=== PATIENT | female | born 1950 | race Caucasian/White ===

== ENCOUNTER 2022-09-05 05:36 | Outpatient (REF) | payer MEDICARE, SELFPAY ==
[2022-09-05 05:52] LABS: Appearance Urine Cloudy; Color Urine Yellow; Glucose Urine UA Negative (Negative); Leukocyte Esterase Urine Large (3+) (Negative); Nitrite Urine Negative (Negative); Specific Gravity - Urine <= 1.005 (1.005-1.025); UMIC TRIGGER UA YES; Urine Blood Trace (Negative); Urine Ketones Negative (Negative); Urine Protein Negative (Neg-Trace)
[2022-09-05 05:57] LABS: Bacteria Urine 1+ (None Seen); Hyaline Casts Urine 0-2 /LPF (0-2); RBC Urine 0-2 /HPF (0-2); Squamous Epithelial Cell Urine 0-2 /HPF (0-2); WBC Urine >50 /HPF (0-5)
== END 2022-09-05 05:37 | disposition home or self-care (01) ==
LOC: HO.MMNH1L 05:36
PROVIDERS: Visit Provider Family Medicine
DX: N39.0 Urinary tract infection, site not specified (principal)
CPT/HCPCS: 81001

== ENCOUNTER 2022-09-08 06:04 | Outpatient (REF) | payer MEDICARE, SELFPAY ==
[2022-09-08 06:02] LABS: MANUAL DIFF FLAG NO
[2022-09-08 06:25] LABS: Anion Gap 12 (12-20); Blood Urea Nitrogen 10 mg/dL (9-16); Calcium 7.9 mg/dL (8.4-10.2); Carbon Dioxide 25 mmol/L (22-29); Chloride 105 mmol/L (96-108); Estimated Glomerular Filt Rate > 60; Glucose Random 98 mg/dL (60-115); Sodium 138 mmol/L (135-145)
[2022-09-08 06:31] LABS: Basophils Absolute Auto 0.1 X10*3/uL (0.0-0.2); Basophils Percent Auto 1.2 % (0-2); Eosinophils Absolute Auto 0.2 X10*3/uL (0.0-0.4); Eosinophils Percent Auto 1.5 % (0-4); Hemoglobin 11.1 g/dl (12.0-16.0); Imm Gran Abs Auto 0.06 X10*3/uL (0.00-0.03); Imm Gran Pct Auto 0.6 % (0.0-0.4); Lymphocytes Absolute Auto 1.4 X10*3/uL (1.2-4.9); Lymphocytes Percent Auto 12.9 % (20-40); Mean Corpuscular HGB Conc 30.8 g/dl (31.0-35.0); Mean Corpuscular Hemoglobin 26.9 pg (27.0-33.0); Mean Corpuscular Volume 87.4 fL (80.0-98.0); Mean Platelet Volume 10.3 fL (9.4-12.3); Monocytes Absolute Auto 0.7 X10*3/uL (0.1-1.2); Monocytes Percent Auto 6.1 % (2-11); Neutrophils Absolute Auto 8.3 x10*3/uL (2.0-8.3); Neutrophils Percent Auto 77.7 % (45-73); Platelet Count 416 X10*3/uL (160-400); Red Blood Count 4.12 X10*6/uL (4.20-5.50); Red Cell Distribution Width 15.2 % (11.0-16.0); White Blood Count 10.6 X10*3/uL (4.8-10.8)
== END 2022-09-08 06:05 | disposition home or self-care (01) ==
LOC: HO.MMNH1L 06:04
PROVIDERS: Visit Provider Family Medicine
DX: M19.90 Unspecified osteoarthritis, unspecified site (principal); I50.20 Unspecified systolic (congestive) heart failure
CPT/HCPCS: 36415; 80048; 85025

== ENCOUNTER 2022-09-15 06:47 | Outpatient (REF) | payer MEDICARE, SELFPAY ==
[2022-09-15 06:27] LABS: MANUAL DIFF FLAG NO
[2022-09-15 07:01] LABS: Basophils Absolute Auto 0.2 X10*3/uL (0.0-0.2); Basophils Percent Auto 1.5 % (0-2); Eosinophils Absolute Auto 0.2 X10*3/uL (0.0-0.4); Hematocrit 35.6 % (37.0-47.0); Hemoglobin 11.3 g/dl (12.0-16.0); Imm Gran Abs Auto 0.03 X10*3/uL (0.00-0.03); Imm Gran Pct Auto 0.3 % (0.0-0.4); Lymphocytes Absolute Auto 1.6 X10*3/uL (1.2-4.9); Lymphocytes Percent Auto 15.4 % (20-40); Mean Corpuscular HGB Conc 31.7 g/dl (31.0-35.0); Mean Platelet Volume 10.5 fL (9.4-12.3); Monocytes Absolute Auto 0.6 X10*3/uL (0.1-1.2); Monocytes Percent Auto 5.3 % (2-11); Neutrophils Absolute Auto 7.9 x10*3/uL (2.0-8.3); Neutrophils Percent Auto 75.5 % (45-73); Platelet Count 409 X10*3/uL (160-400); Red Blood Count 4.19 X10*6/uL (4.20-5.50); Red Cell Distribution Width 15.3 % (11.0-16.0); White Blood Count 10.5 X10*3/uL (4.8-10.8)
[2022-09-15 07:23] LABS: Anion Gap 14 (12-20); Blood Urea Nitrogen 10 mg/dL (9-16); Calcium 7.8 mg/dL (8.4-10.2); Carbon Dioxide 25 mmol/L (22-29); Chloride 103 mmol/L (96-108); Estimated Glomerular Filt Rate > 60; Glucose Random 92 mg/dL (60-115); Potassium 3.6 mmol/L (3.3-5.1); Sodium 138 mmol/L (135-145)
== END 2022-09-15 06:48 | disposition home or self-care (01) ==
LOC: HO.MMNH1L 06:47
PROVIDERS: Visit Provider Family Medicine
DX: I50.20 Unspecified systolic (congestive) heart failure (principal); E46 Unspecified protein-calorie malnutrition
CPT/HCPCS: 36415; 80048; 85025

== ENCOUNTER 2022-09-22 05:44 | Outpatient (REF) | payer MEDICARE, SELFPAY ==
[2022-09-22 05:37] LABS: MANUAL DIFF FLAG NO
[2022-09-22 06:07] LABS: Basophils Absolute Auto 0.2 X10*3/uL (0.0-0.2); Basophils Percent Auto 2.2 % (0-2); Eosinophils Absolute Auto 0.3 X10*3/uL (0.0-0.4); Eosinophils Percent Auto 2.9 % (0-4); Hematocrit 35.7 % (37.0-47.0); Hemoglobin 11.2 g/dl (12.0-16.0); Imm Gran Abs Auto 0.03 X10*3/uL (0.00-0.03); Imm Gran Pct Auto 0.3 % (0.0-0.4); Lymphocytes Absolute Auto 1.9 X10*3/uL (1.2-4.9); Lymphocytes Percent Auto 21.9 % (20-40); Mean Corpuscular HGB Conc 31.4 g/dl (31.0-35.0); Mean Corpuscular Hemoglobin 26.9 pg (27.0-33.0); Mean Corpuscular Volume 85.8 fL (80.0-98.0); Monocytes Absolute Auto 0.6 X10*3/uL (0.1-1.2); Monocytes Percent Auto 6.7 % (2-11); Neutrophils Absolute Auto 5.7 x10*3/uL (2.0-8.3); Platelet Count 404 X10*3/uL (160-400); Red Blood Count 4.16 X10*6/uL (4.20-5.50); Red Cell Distribution Width 15.3 % (11.0-16.0); White Blood Count 8.6 X10*3/uL (4.8-10.8)
[2022-09-22 06:28] LABS: Anion Gap 13 (12-20); Blood Urea Nitrogen 9 mg/dL (9-16); Calcium 7.9 mg/dL (8.4-10.2); Carbon Dioxide 24 mmol/L (22-29); Chloride 105 mmol/L (96-108); Estimated Glomerular Filt Rate > 60; Glucose Random 84 mg/dL (60-115); Sodium 138 mmol/L (135-145)
== END 2022-09-22 05:45 | disposition home or self-care (01) ==
LOC: HO.MMNH1L 05:44
PROVIDERS: Visit Provider Family Medicine
DX: I50.20 Unspecified systolic (congestive) heart failure (principal); E46 Unspecified protein-calorie malnutrition
CPT/HCPCS: 36415; 80048; 85025

== ENCOUNTER 2022-09-29 05:52 | Outpatient (REF) | payer MEDICARE, SELFPAY ==
[2022-09-29 05:46] LABS: MANUAL DIFF FLAG NO
[2022-09-29 06:23] LABS: Basophils Absolute Auto 0.1 X10*3/uL (0.0-0.2); Basophils Percent Auto 0.7 % (0-2); Eosinophils Absolute Auto 0.1 X10*3/uL (0.0-0.4); Eosinophils Percent Auto 0.8 % (0-4); Hematocrit 35.9 % (37.0-47.0); Hemoglobin 11.4 g/dl (12.0-16.0); Imm Gran Abs Auto 0.09 X10*3/uL (0.00-0.03); Imm Gran Pct Auto 0.6 % (0.0-0.4); Lymphocytes Absolute Auto 1.9 X10*3/uL (1.2-4.9); Lymphocytes Percent Auto 12.1 % (20-40); Mean Corpuscular HGB Conc 31.8 g/dl (31.0-35.0); Mean Corpuscular Volume 85.1 fL (80.0-98.0); Mean Platelet Volume 10.9 fL (9.4-12.3); Monocytes Absolute Auto 0.8 X10*3/uL (0.1-1.2); Monocytes Percent Auto 4.8 % (2-11); Neutrophils Absolute Auto 12.9 x10*3/uL (2.0-8.3); Platelet Count 423 X10*3/uL (160-400); Red Blood Count 4.22 X10*6/uL (4.20-5.50)
[2022-09-29 07:19] LABS: Anion Gap 15 (12-20); Blood Urea Nitrogen 11 mg/dL (9-16); Calcium 7.9 mg/dL (8.4-10.2); Carbon Dioxide 23 mmol/L (22-29); Chloride 101 mmol/L (96-108); Estimated Glomerular Filt Rate > 60; Glucose Random 100 mg/dL (60-115); Potassium 3.5 mmol/L (3.3-5.1); Sodium 135 mmol/L (135-145)
== END 2022-09-29 05:53 | disposition home or self-care (01) ==
LOC: HO.MMNH1L 05:52
PROVIDERS: Visit Provider Family Medicine
DX: I50.20 Unspecified systolic (congestive) heart failure (principal); E46 Unspecified protein-calorie malnutrition
CPT/HCPCS: 36415; 80048; 85025

== ENCOUNTER 2022-11-10 06:02 | Outpatient (REF) | payer MEDICARE, SELFPAY | END 2022-11-10 06:03 | disposition home or self-care (01) | LOC: HO.MMNH2L 06:02 | PROVIDERS: Visit Provider Family Medicine | DX: Z13.89 Encounter for screening for other disorder (principal) ==

== ENCOUNTER 2022-12-09 06:20 | Outpatient (REF) | payer MEDICARE, SELFPAY ==
[2022-12-09 06:09] LABS: MANUAL DIFF FLAG NO
[2022-12-09 06:34] LABS: Basophils Absolute Auto 0.1 X10*3/uL (0.0-0.2); Basophils Percent Auto 1.3 % (0-2); Eosinophils Absolute Auto 0.1 X10*3/uL (0.0-0.4); Eosinophils Percent Auto 1.6 % (0-4); Hematocrit 38.5 % (37.0-47.0); Hemoglobin 11.8 g/dl (12.0-16.0); Imm Gran Abs Auto 0.03 X10*3/uL (0.00-0.03); Imm Gran Pct Auto 0.4 % (0.0-0.4); Lymphocytes Absolute Auto 1.6 X10*3/uL (1.2-4.9); Lymphocytes Percent Auto 19.8 % (20-40); Mean Corpuscular HGB Conc 30.6 g/dl (31.0-35.0); Mean Corpuscular Hemoglobin 26.4 pg (27.0-33.0); Mean Corpuscular Volume 86.1 fL (80.0-98.0); Mean Platelet Volume 10.9 fL (9.4-12.3); Monocytes Absolute Auto 0.3 X10*3/uL (0.1-1.2); Monocytes Percent Auto 3.9 % (2-11); Neutrophils Absolute Auto 5.8 x10*3/uL (2.0-8.3); Platelet Count 401 X10*3/uL (160-400); Red Blood Count 4.47 X10*6/uL (4.20-5.50); Red Cell Distribution Width 15.2 % (11.0-16.0); White Blood Count 7.9 X10*3/uL (4.8-10.8)
[2022-12-09 06:58] LABS: Anion Gap 12 (12-20); Blood Urea Nitrogen 12 mg/dL (9-16); Calcium 8.6 mg/dL (8.4-10.2); Carbon Dioxide 23 mmol/L (22-29); Chloride 106 mmol/L (96-108); Estimated Glomerular Filt Rate > 60; Glucose Random 112 mg/dL (60-115); Potassium 3.9 mmol/L (3.3-5.1); Sodium 137 mmol/L (135-145)
== END 2022-12-09 06:21 | disposition home or self-care (01) ==
LOC: HO.MMNH2L 06:20
PROVIDERS: Visit Provider Family Medicine
DX: I50.20 Unspecified systolic (congestive) heart failure (principal)
CPT/HCPCS: 36415; 80048; 85025

== ENCOUNTER 2022-12-15 06:06 | Outpatient (REF) | payer MEDICARE, SELFPAY ==
[2022-12-15 06:02] LABS: MANUAL DIFF FLAG NO
[2022-12-15 06:51] LABS: Anion Gap 13 (12-20); Blood Urea Nitrogen 12 mg/dL (9-16); Calcium 9.3 mg/dL (8.4-10.2); Carbon Dioxide 27 mmol/L (22-29); Chloride 102 mmol/L (96-108); Estimated Glomerular Filt Rate > 60; Glucose Random 119 mg/dL (60-115); Potassium 3.9 mmol/L (3.3-5.1); Sodium 138 mmol/L (135-145)
[2022-12-15 07:06] LABS: Basophils Absolute Auto 0.1 X10*3/uL (0.0-0.2); Basophils Percent Auto 1.2 % (0-2); Eosinophils Absolute Auto 0.2 X10*3/uL (0.0-0.4); Eosinophils Percent Auto 1.5 % (0-4); Hematocrit 40.4 % (37.0-47.0); Hemoglobin 12.6 g/dl (12.0-16.0); Imm Gran Abs Auto 0.06 X10*3/uL (0.00-0.03); Imm Gran Pct Auto 0.6 % (0.0-0.4); Lymphocytes Absolute Auto 2.2 X10*3/uL (1.2-4.9); Lymphocytes Percent Auto 20.9 % (20-40); Mean Corpuscular HGB Conc 31.2 g/dl (31.0-35.0); Mean Corpuscular Hemoglobin 27.1 pg (27.0-33.0); Mean Corpuscular Volume 86.9 fL (80.0-98.0); Monocytes Absolute Auto 0.5 X10*3/uL (0.1-1.2); Monocytes Percent Auto 4.8 % (2-11); Neutrophils Absolute Auto 7.5 x10*3/uL (2.0-8.3); Platelet Count 419 X10*3/uL (160-400); Red Blood Count 4.65 X10*6/uL (4.20-5.50); Red Cell Distribution Width 15.2 % (11.0-16.0); White Blood Count 10.5 X10*3/uL (4.8-10.8)
== END 2022-12-15 06:07 | disposition home or self-care (01) ==
LOC: HO.MMNH3L 06:06
PROVIDERS: Visit Provider Family Medicine
DX: I50.20 Unspecified systolic (congestive) heart failure (principal)
CPT/HCPCS: 36415; 80048; 85025

== ENCOUNTER 2022-12-22 06:28 | Outpatient (REF) | payer MEDICARE, SELFPAY ==
[2022-12-22 05:51] LABS: MANUAL DIFF FLAG NO
[2022-12-22 06:01] LABS: Basophils Absolute Auto 0.1 X10*3/uL (0.0-0.2); Basophils Percent Auto 1.3 % (0-2); Eosinophils Absolute Auto 0.2 X10*3/uL (0.0-0.4); Eosinophils Percent Auto 2.1 % (0-4); Hematocrit 35.4 % (37.0-47.0); Hemoglobin 11.1 g/dl (12.0-16.0); Imm Gran Abs Auto 0.02 X10*3/uL (0.00-0.03); Imm Gran Pct Auto 0.3 % (0.0-0.4); Lymphocytes Absolute Auto 1.6 X10*3/uL (1.2-4.9); Lymphocytes Percent Auto 20.9 % (20-40); Mean Corpuscular HGB Conc 31.4 g/dl (31.0-35.0); Mean Corpuscular Hemoglobin 26.8 pg (27.0-33.0); Mean Corpuscular Volume 85.5 fL (80.0-98.0); Mean Platelet Volume 10.8 fL (9.4-12.3); Monocytes Absolute Auto 0.4 X10*3/uL (0.1-1.2); Monocytes Percent Auto 5.9 % (2-11); Neutrophils Absolute Auto 5.2 x10*3/uL (2.0-8.3); Neutrophils Percent Auto 69.5 % (45-73); Platelet Count 353 X10*3/uL (160-400); Red Blood Count 4.14 X10*6/uL (4.20-5.50); White Blood Count 7.5 X10*3/uL (4.8-10.8)
[2022-12-22 06:32] LABS: Anion Gap 12 (12-20); Blood Urea Nitrogen 18 mg/dL (9-16); Calcium 8.5 mg/dL (8.4-10.2); Carbon Dioxide 24 mmol/L (22-29); Chloride 106 mmol/L (96-108); Estimated Glomerular Filt Rate > 60; Glucose Random 116 mg/dL (60-115); Sodium 138 mmol/L (135-145)
== END 2022-12-22 06:29 | disposition home or self-care (01) ==
LOC: HO.MMNH3L 06:28
PROVIDERS: Visit Provider Family Medicine
DX: I50.20 Unspecified systolic (congestive) heart failure (principal)
CPT/HCPCS: 36415; 80048; 85025

== ENCOUNTER 2022-12-27 23:00 | Outpatient (REF) | payer MEDICARE, SELFPAY ==
[2022-12-28 09:03] LABS: Appearance Urine Turbid; Color Urine Yellow; Glucose Urine UA Negative (Negative); Nitrite Urine Positive (Negative); Specific Gravity - Urine 1.015 (1.005-1.025); UMIC TRIGGER UACC YES; Urine Blood Small (1+) (Negative); Urine Ketones Negative (Negative); Urine Protein 100 (2+) mg/dL (Neg-Trace)
[2022-12-28 09:14] LABS: Leukocyte Esterase Urine Large (3+) (Negative)
[2022-12-28 09:22] LABS: UACC Culture Trigger YES; WBC Urine >50 /HPF (0-5)
[2022-12-28 09:23] LABS: Bacteria Urine 2+ (None Seen); Hyaline Casts Urine 0-2 /LPF (0-2); Other Crystals Urine Present; Squamous Epithelial Cell Urine 0-2 /HPF (0-2)
== END 2022-12-27 23:01 | disposition home or self-care (01) ==
LOC: HO.MMNH3L 23:00
PROVIDERS: Visit Provider Internal Medicine
DX: I50.9 Heart failure, unspecified (principal); F32.A Depression, unspecified; N32.81 Overactive bladder; R82.90 Unspecified abnormal findings in urine
CPT/HCPCS: 81001; 87086; 87088; 87186

== ENCOUNTER 2022-12-29 06:01 | Outpatient (REF) | payer MEDICARE, SELFPAY ==
[2022-12-29 05:57] LABS: MANUAL DIFF FLAG NO
[2022-12-29 06:32] LABS: Basophils Absolute Auto 0.1 X10*3/uL (0.0-0.2); Basophils Percent Auto 0.9 % (0-2); Eosinophils Absolute Auto 0.2 X10*3/uL (0.0-0.4); Eosinophils Percent Auto 1.4 % (0-4); Hematocrit 35.5 % (37.0-47.0); Hemoglobin 11.2 g/dl (12.0-16.0); Imm Gran Abs Auto 0.07 X10*3/uL (0.00-0.03); Imm Gran Pct Auto 0.5 % (0.0-0.4); Lymphocytes Absolute Auto 1.6 X10*3/uL (1.2-4.9); Lymphocytes Percent Auto 11.3 % (20-40); Mean Corpuscular HGB Conc 31.5 g/dl (31.0-35.0); Mean Corpuscular Hemoglobin 27.3 pg (27.0-33.0); Mean Corpuscular Volume 86.6 fL (80.0-98.0); Mean Platelet Volume 10.1 fL (9.4-12.3); Monocytes Absolute Auto 0.7 X10*3/uL (0.1-1.2); Monocytes Percent Auto 5.2 % (2-11); Neutrophils Absolute Auto 11.3 x10*3/uL (2.0-8.3); Neutrophils Percent Auto 80.7 % (45-73); Platelet Count 422 X10*3/uL (160-400); Red Cell Distribution Width 15.1 % (11.0-16.0)
[2022-12-29 07:10] LABS: Anion Gap 13 (12-20); Blood Urea Nitrogen 14 mg/dL (9-16); Calcium 8.7 mg/dL (8.4-10.2); Carbon Dioxide 24 mmol/L (22-29); Chloride 105 mmol/L (96-108); Estimated Glomerular Filt Rate > 60; Glucose Random 116 mg/dL (60-115); Potassium 3.9 mmol/L (3.3-5.1); Sodium 138 mmol/L (135-145)
== END 2022-12-29 06:02 | disposition home or self-care (01) ==
LOC: HO.MMNH3L 06:01
PROVIDERS: Visit Provider Family Medicine
DX: I50.20 Unspecified systolic (congestive) heart failure (principal)
CPT/HCPCS: 36415; 80048; 85025

== ENCOUNTER 2023-01-05 05:59 | Outpatient (REF) | payer MEDICARE, SELFPAY ==
[2023-01-05 06:00] LABS: MANUAL DIFF FLAG NO
[2023-01-05 06:24] LABS: Basophils Absolute Auto 0.2 X10*3/uL (0.0-0.2); Eosinophils Absolute Auto 0.3 X10*3/uL (0.0-0.4); Eosinophils Percent Auto 3.5 % (0-4); Hematocrit 35.5 % (37.0-47.0); Hemoglobin 11.1 g/dl (12.0-16.0); Imm Gran Abs Auto 0.03 X10*3/uL (0.00-0.03); Imm Gran Pct Auto 0.4 % (0.0-0.4); Lymphocytes Absolute Auto 1.9 X10*3/uL (1.2-4.9); Lymphocytes Percent Auto 25.4 % (20-40); Mean Corpuscular HGB Conc 31.3 g/dl (31.0-35.0); Mean Corpuscular Hemoglobin 26.9 pg (27.0-33.0); Mean Platelet Volume 10.6 fL (9.4-12.3); Monocytes Absolute Auto 0.3 X10*3/uL (0.1-1.2); Monocytes Percent Auto 4.4 % (2-11); Neutrophils Absolute Auto 4.8 x10*3/uL (2.0-8.3); Neutrophils Percent Auto 64.3 % (45-73); Platelet Count 409 X10*3/uL (160-400); Red Blood Count 4.13 X10*6/uL (4.20-5.50); Red Cell Distribution Width 15.2 % (11.0-16.0); White Blood Count 7.4 X10*3/uL (4.8-10.8)
[2023-01-05 06:48] LABS: Anion Gap 11 (12-20); Blood Urea Nitrogen 14 mg/dL (9-16); Calcium 8.9 mg/dL (8.4-10.2); Carbon Dioxide 27 mmol/L (22-29); Chloride 105 mmol/L (96-108); Estimated Glomerular Filt Rate > 60; Glucose Random 106 mg/dL (60-115); Potassium 3.7 mmol/L (3.3-5.1); Sodium 139 mmol/L (135-145)
== END 2023-01-05 06:00 | disposition home or self-care (01) ==
LOC: HO.MMNH3L 05:59
PROVIDERS: Visit Provider Family Medicine
DX: I50.20 Unspecified systolic (congestive) heart failure (principal)
CPT/HCPCS: 36415; 80048; 85025

== ENCOUNTER 2023-01-12 06:23 | Outpatient (REF) | payer MEDICARE, SELFPAY ==
[2023-01-12 06:15] LABS: MANUAL DIFF FLAG NO
[2023-01-12 06:59] LABS: Anion Gap 14 (12-20); Blood Urea Nitrogen 12 mg/dL (9-16); Calcium 8.7 mg/dL (8.4-10.2); Carbon Dioxide 23 mmol/L (22-29); Chloride 105 mmol/L (96-108); Estimated Glomerular Filt Rate > 60; Glucose Random 122 mg/dL (60-115); Potassium 3.8 mmol/L (3.3-5.1); Sodium 138 mmol/L (135-145)
[2023-01-12 07:01] LABS: Basophils Percent Auto 0.1 % (0-2); Eosinophils Absolute Auto 0.2 X10*3/uL (0.0-0.4); Eosinophils Percent Auto 1.1 % (0-4); Hematocrit 36.2 % (37.0-47.0); Hemoglobin 11.4 g/dl (12.0-16.0); Imm Gran Abs Auto 0.08 X10*3/uL (0.00-0.03); Imm Gran Pct Auto 0.5 % (0.0-0.4); Lymphocytes Absolute Auto 1.8 X10*3/uL (1.2-4.9); Mean Corpuscular HGB Conc 31.5 g/dl (31.0-35.0); Mean Corpuscular Hemoglobin 26.6 pg (27.0-33.0); Mean Corpuscular Volume 84.4 fL (80.0-98.0); Mean Platelet Volume 11.1 fL (9.4-12.3); Monocytes Absolute Auto 0.5 X10*3/uL (0.1-1.2); Monocytes Percent Auto 3.2 % (2-11); Neutrophils Absolute Auto 14.1 x10*3/uL (2.0-8.3); Neutrophils Percent Auto 84.1 % (45-73); Platelet Count 448 X10*3/uL (160-400); Red Blood Count 4.29 X10*6/uL (4.20-5.50); Red Cell Distribution Width 15.4 % (11.0-16.0); White Blood Count 16.8 X10*3/uL (4.8-10.8)
== END 2023-01-12 06:24 | disposition home or self-care (01) ==
LOC: HO.MMNH3L 06:23
PROVIDERS: Visit Provider Family Medicine
DX: I50.20 Unspecified systolic (congestive) heart failure (principal)
CPT/HCPCS: 36415; 80048; 85025

== ENCOUNTER 2023-01-19 07:14 | Outpatient (REF) | payer MEDICARE, SELFPAY | END 2023-01-19 07:15 | disposition home or self-care (01) | LOC: HO.MMNH3L 07:14 | PROVIDERS: Visit Provider Family Medicine | DX: I50.20 Unspecified systolic (congestive) heart failure (principal) | CPT/HCPCS: 36415; 80048; 85025 ==

== ENCOUNTER 2023-01-26 06:10 | Outpatient (REF) | payer MEDICARE, SELFPAY ==
[2023-01-26 05:47] LABS: MANUAL DIFF FLAG NO
[2023-01-26 06:10] LABS: Basophils Absolute Auto 0.1 X10*3/uL (0.0-0.2); Eosinophils Absolute Auto 0.2 X10*3/uL (0.0-0.4); Eosinophils Percent Auto 1.7 % (0-4); Hematocrit 32.9 % (37.0-47.0); Hemoglobin 10.1 g/dl (12.0-16.0); Imm Gran Abs Auto 0.03 X10*3/uL (0.00-0.03); Imm Gran Pct Auto 0.3 % (0.0-0.4); Lymphocytes Absolute Auto 1.5 X10*3/uL (1.2-4.9); Lymphocytes Percent Auto 13.5 % (20-40); Mean Corpuscular HGB Conc 30.7 g/dl (31.0-35.0); Mean Corpuscular Hemoglobin 26.9 pg (27.0-33.0); Mean Corpuscular Volume 87.7 fL (80.0-98.0); Monocytes Absolute Auto 0.5 X10*3/uL (0.1-1.2); Monocytes Percent Auto 4.6 % (2-11); Neutrophils Absolute Auto 8.9 x10*3/uL (2.0-8.3); Neutrophils Percent Auto 78.9 % (45-73); Platelet Count 409 X10*3/uL (160-400); Red Blood Count 3.75 X10*6/uL (4.20-5.50); Red Cell Distribution Width 17.1 % (11.0-16.0); White Blood Count 11.3 X10*3/uL (4.8-10.8)
[2023-01-26 06:16] LABS: Anion Gap 13 (12-20); Blood Urea Nitrogen 17 mg/dL (9-16); Calcium 8.5 mg/dL (8.4-10.2); Carbon Dioxide 22 mmol/L (22-29); Chloride 106 mmol/L (96-108); Estimated Glomerular Filt Rate > 60; Glucose Random 116 mg/dL (60-115); Potassium 3.9 mmol/L (3.3-5.1); Sodium 137 mmol/L (135-145)
== END 2023-01-26 06:11 | disposition home or self-care (01) ==
LOC: HO.MMNH3L 06:10
PROVIDERS: Visit Provider Family Medicine
DX: I50.20 Unspecified systolic (congestive) heart failure (principal)
CPT/HCPCS: 36415; 80048; 85025

== ENCOUNTER 2023-02-02 06:02 | Outpatient (REF) | payer MEDICARE, SELFPAY ==
[2023-02-02 05:59] LABS: MANUAL DIFF FLAG NO
[2023-02-02 06:50] LABS: Basophils Absolute Auto 0.1 X10*3/uL (0.0-0.2); Basophils Percent Auto 1.3 % (0-2); Eosinophils Absolute Auto 0.2 X10*3/uL (0.0-0.4); Eosinophils Percent Auto 1.9 % (0-4); Hematocrit 32.4 % (37.0-47.0); Hemoglobin 10.1 g/dl (12.0-16.0); Imm Gran Abs Auto 0.05 X10*3/uL (0.00-0.03); Imm Gran Pct Auto 0.5 % (0.0-0.4); Lymphocytes Absolute Auto 1.5 X10*3/uL (1.2-4.9); Lymphocytes Percent Auto 15.4 % (20-40); Mean Corpuscular HGB Conc 31.2 g/dl (31.0-35.0); Mean Corpuscular Hemoglobin 27.2 pg (27.0-33.0); Mean Corpuscular Volume 87.1 fL (80.0-98.0); Mean Platelet Volume 11.1 fL (9.4-12.3); Monocytes Absolute Auto 0.5 X10*3/uL (0.1-1.2); Monocytes Percent Auto 5.1 % (2-11); Neutrophils Absolute Auto 7.6 x10*3/uL (2.0-8.3); Neutrophils Percent Auto 75.8 % (45-73); Platelet Count 362 X10*3/uL (160-400); Red Blood Count 3.72 X10*6/uL (4.20-5.50); Red Cell Distribution Width 17.5 % (11.0-16.0)
[2023-02-02 07:21] LABS: Anion Gap 10 (12-20); Blood Urea Nitrogen 17 mg/dL (9-16); Carbon Dioxide 23 mmol/L (22-29); Chloride 109 mmol/L (96-108); Estimated Glomerular Filt Rate > 60; Glucose Random 90 mg/dL (60-115); Potassium 3.4 mmol/L (3.3-5.1); Sodium 139 mmol/L (135-145)
== END 2023-02-02 06:03 | disposition home or self-care (01) ==
LOC: HO.MMNH3L 06:02
PROVIDERS: Visit Provider Family Medicine
DX: I50.20 Unspecified systolic (congestive) heart failure (principal)
CPT/HCPCS: 36415; 80048; 85025

== ENCOUNTER 2023-02-09 06:11 | Outpatient (REF) | payer MEDICARE, SELFPAY ==
[2023-02-09 06:03] LABS: MANUAL DIFF FLAG NO
[2023-02-09 06:37] LABS: Basophils Absolute Auto 0.1 X10*3/uL (0.0-0.2); Basophils Percent Auto 1.1 % (0-2); Eosinophils Absolute Auto 0.2 X10*3/uL (0.0-0.4); Eosinophils Percent Auto 1.6 % (0-4); Hematocrit 34.9 % (37.0-47.0); Hemoglobin 10.7 g/dl (12.0-16.0); Imm Gran Abs Auto 0.07 X10*3/uL (0.00-0.03); Imm Gran Pct Auto 0.6 % (0.0-0.4); Lymphocytes Absolute Auto 1.3 X10*3/uL (1.2-4.9); Lymphocytes Percent Auto 11.3 % (20-40); Mean Corpuscular HGB Conc 30.7 g/dl (31.0-35.0); Mean Corpuscular Hemoglobin 27.1 pg (27.0-33.0); Mean Corpuscular Volume 88.4 fL (80.0-98.0); Mean Platelet Volume 10.9 fL (9.4-12.3); Monocytes Absolute Auto 0.7 X10*3/uL (0.1-1.2); Monocytes Percent Auto 5.9 % (2-11); Neutrophils Absolute Auto 9.4 x10*3/uL (2.0-8.3); Neutrophils Percent Auto 79.5 % (45-73); Platelet Count 379 X10*3/uL (160-400); Red Blood Count 3.95 X10*6/uL (4.20-5.50); Red Cell Distribution Width 17.1 % (11.0-16.0); White Blood Count 11.9 X10*3/uL (4.8-10.8)
[2023-02-09 07:04] LABS: Anion Gap 15 (12-20); Blood Urea Nitrogen 13 mg/dL (9-16); Calcium 8.4 mg/dL (8.4-10.2); Carbon Dioxide 23 mmol/L (22-29); Chloride 107 mmol/L (96-108); Estimated Glomerular Filt Rate > 60; Glucose Random 93 mg/dL (60-115); Potassium 3.9 mmol/L (3.3-5.1); Sodium 141 mmol/L (135-145)
== END 2023-02-09 06:12 | disposition home or self-care (01) ==
LOC: HO.MMNH3L 06:11
PROVIDERS: Visit Provider Family Medicine
DX: I50.20 Unspecified systolic (congestive) heart failure (principal)
CPT/HCPCS: 36415; 80048; 85025

== ENCOUNTER 2023-02-16 05:55 | Outpatient (REF) | payer MEDICARE, SELFPAY ==
[2023-02-16 05:53] LABS: MANUAL DIFF FLAG NO
[2023-02-16 06:02] LABS: Basophils Absolute Auto 0.2 X10*3/uL (0.0-0.2); Basophils Percent Auto 1.4 % (0-2); Eosinophils Absolute Auto 0.2 X10*3/uL (0.0-0.4); Hematocrit 37.7 % (37.0-47.0); Hemoglobin 11.7 g/dl (12.0-16.0); Imm Gran Abs Auto 0.05 X10*3/uL (0.00-0.03); Imm Gran Pct Auto 0.4 % (0.0-0.4); Lymphocytes Absolute Auto 1.8 X10*3/uL (1.2-4.9); Lymphocytes Percent Auto 14.4 % (20-40); Mean Corpuscular Hemoglobin 27.3 pg (27.0-33.0); Mean Corpuscular Volume 88.1 fL (80.0-98.0); Monocytes Absolute Auto 0.6 X10*3/uL (0.1-1.2); Monocytes Percent Auto 5.3 % (2-11); Neutrophils Absolute Auto 9.3 x10*3/uL (2.0-8.3); Neutrophils Percent Auto 76.5 % (45-73); Platelet Count 479 X10*3/uL (160-400); Red Blood Count 4.28 X10*6/uL (4.20-5.50); Red Cell Distribution Width 16.4 % (11.0-16.0); White Blood Count 12.2 X10*3/uL (4.8-10.8)
[2023-02-16 06:36] LABS: Anion Gap 14 (12-20); Blood Urea Nitrogen 13 mg/dL (9-16); Calcium 8.5 mg/dL (8.4-10.2); Carbon Dioxide 24 mmol/L (22-29); Chloride 106 mmol/L (96-108); Estimated Glomerular Filt Rate > 60; Glucose Random 92 mg/dL (60-115); Sodium 140 mmol/L (135-145)
== END 2023-02-16 05:56 | disposition home or self-care (01) ==
LOC: HO.MMNH3L 05:55
PROVIDERS: Visit Provider Family Medicine
DX: I50.20 Unspecified systolic (congestive) heart failure (principal)
CPT/HCPCS: 36415; 80048; 85025

== ENCOUNTER 2023-02-20 20:43 | Outpatient (REF) | payer MEDICARE, OTHER, SELFPAY | END 2023-02-20 20:44 | disposition home or self-care (01) | LOC: HO.MMNH3L 20:43 | PROVIDERS: Visit Provider Family Medicine | DX: R50.9 Fever, unspecified (principal) | CPT/HCPCS: 87070 ==

== ENCOUNTER 2023-02-23 06:15 | Outpatient (REF) | payer MEDICARE, SELFPAY ==
[2023-02-23 06:03] LABS: MANUAL DIFF FLAG NO
[2023-02-23 06:48] LABS: Basophils Absolute Auto 0.2 X10*3/uL (0.0-0.2); Basophils Percent Auto 1.3 % (0-2); Eosinophils Absolute Auto 0.4 X10*3/uL (0.0-0.4); Hematocrit 34.3 % (37.0-47.0); Hemoglobin 10.8 g/dl (12.0-16.0); Imm Gran Abs Auto 0.06 X10*3/uL (0.00-0.03); Imm Gran Pct Auto 0.5 % (0.0-0.4); Lymphocytes Absolute Auto 1.6 X10*3/uL (1.2-4.9); Lymphocytes Percent Auto 11.9 % (20-40); Mean Corpuscular HGB Conc 31.5 g/dl (31.0-35.0); Mean Corpuscular Hemoglobin 27.3 pg (27.0-33.0); Mean Corpuscular Volume 86.8 fL (80.0-98.0); Mean Platelet Volume 11.2 fL (9.4-12.3); Monocytes Absolute Auto 0.7 X10*3/uL (0.1-1.2); Monocytes Percent Auto 5.1 % (2-11); Neutrophils Absolute Auto 10.2 x10*3/uL (2.0-8.3); Neutrophils Percent Auto 78.2 % (45-73); Platelet Count 417 X10*3/uL (160-400); Red Blood Count 3.95 X10*6/uL (4.20-5.50); Red Cell Distribution Width 15.9 % (11.0-16.0); White Blood Count 13.1 X10*3/uL (4.8-10.8)
[2023-02-23 09:56] LABS: Anion Gap 11 (12-20); Blood Urea Nitrogen 12 mg/dL (9-16); Calcium 7.7 mg/dL (8.4-10.2); Carbon Dioxide 23 mmol/L (22-29); Chloride 108 mmol/L (96-108); Estimated Glomerular Filt Rate > 60; Glucose Random 85 mg/dL (60-115); Potassium 3.5 mmol/L (3.3-5.1); Sodium 138 mmol/L (135-145)
== END 2023-02-23 06:16 | disposition home or self-care (01) ==
LOC: HO.MMNH3L 06:15
PROVIDERS: Visit Provider Family Medicine
DX: I50.20 Unspecified systolic (congestive) heart failure (principal)
CPT/HCPCS: 36415; 80048; 85025

== ENCOUNTER 2023-03-02 06:17 | Outpatient (REF) | payer MEDICARE, SELFPAY ==
[2023-03-02 05:55] LABS: MANUAL DIFF FLAG NO
[2023-03-02 06:51] LABS: Anion Gap 14 (12-20); Blood Urea Nitrogen 16 mg/dL (9-16); Carbon Dioxide 22 mmol/L (22-29); Chloride 107 mmol/L (96-108); Estimated Glomerular Filt Rate > 60; Glucose Random 90 mg/dL (60-115); Potassium 3.6 mmol/L (3.3-5.1); Sodium 139 mmol/L (135-145)
[2023-03-02 07:11] LABS: Basophils Absolute Auto 0.2 X10*3/uL (0.0-0.2); Basophils Percent Auto 1.4 % (0-2); Eosinophils Absolute Auto 0.2 X10*3/uL (0.0-0.4); Eosinophils Percent Auto 1.1 % (0-4); Hematocrit 35.6 % (37.0-47.0); Imm Gran Abs Auto 0.07 X10*3/uL (0.00-0.03); Imm Gran Pct Auto 0.5 % (0.0-0.4); Lymphocytes Absolute Auto 1.7 X10*3/uL (1.2-4.9); Lymphocytes Percent Auto 12.7 % (20-40); Mean Corpuscular HGB Conc 30.9 g/dl (31.0-35.0); Mean Corpuscular Hemoglobin 27.6 pg (27.0-33.0); Mean Corpuscular Volume 89.4 fL (80.0-98.0); Monocytes Absolute Auto 0.7 X10*3/uL (0.1-1.2); Neutrophils Absolute Auto 10.7 x10*3/uL (2.0-8.3); Neutrophils Percent Auto 79.3 % (45-73); Platelet Count 465 X10*3/uL (160-400); Red Blood Count 3.98 X10*6/uL (4.20-5.50); Red Cell Distribution Width 15.6 % (11.0-16.0); White Blood Count 13.5 X10*3/uL (4.8-10.8)
== END 2023-03-02 06:18 | disposition home or self-care (01) ==
LOC: HO.MMNH3L 06:17
PROVIDERS: Visit Provider Family Medicine
DX: I50.20 Unspecified systolic (congestive) heart failure (principal)
CPT/HCPCS: 36415; 80048; 85025

== ENCOUNTER 2023-03-09 06:10 | Outpatient (REF) | payer MEDICARE, SELFPAY ==
[2023-03-09 06:02] LABS: MANUAL DIFF FLAG NO
[2023-03-09 06:50] LABS: Basophils Absolute Auto 0.2 X10*3/uL (0.0-0.2); Basophils Percent Auto 1.6 % (0-2); Eosinophils Absolute Auto 0.3 X10*3/uL (0.0-0.4); Eosinophils Percent Auto 2.3 % (0-4); Hematocrit 34.4 % (37.0-47.0); Hemoglobin 10.7 g/dl (12.0-16.0); Imm Gran Abs Auto 0.04 X10*3/uL (0.00-0.03); Imm Gran Pct Auto 0.4 % (0.0-0.4); Lymphocytes Absolute Auto 1.9 X10*3/uL (1.2-4.9); Lymphocytes Percent Auto 16.7 % (20-40); Mean Corpuscular HGB Conc 31.1 g/dl (31.0-35.0); Mean Corpuscular Hemoglobin 27.2 pg (27.0-33.0); Mean Corpuscular Volume 87.5 fL (80.0-98.0); Mean Platelet Volume 11.5 fL (9.4-12.3); Monocytes Absolute Auto 0.7 X10*3/uL (0.1-1.2); Monocytes Percent Auto 6.4 % (2-11); Neutrophils Absolute Auto 8.1 x10*3/uL (2.0-8.3); Neutrophils Percent Auto 72.6 % (45-73); Platelet Count 442 X10*3/uL (160-400); Red Blood Count 3.93 X10*6/uL (4.20-5.50); Red Cell Distribution Width 15.6 % (11.0-16.0); White Blood Count 11.2 X10*3/uL (4.8-10.8)
[2023-03-09 07:09] LABS: Anion Gap 10 (12-20); Blood Urea Nitrogen 15 mg/dL (9-16); Calcium 8.4 mg/dL (8.4-10.2); Carbon Dioxide 24 mmol/L (22-29); Chloride 108 mmol/L (96-108); Estimated Glomerular Filt Rate > 60; Glucose Random 88 mg/dL (60-115); Potassium 3.2 mmol/L (3.3-5.1); Sodium 139 mmol/L (135-145)
== END 2023-03-09 06:11 | disposition home or self-care (01) ==
LOC: HO.MMNH3L 06:10
PROVIDERS: Visit Provider Family Medicine
DX: I50.20 Unspecified systolic (congestive) heart failure (principal)
CPT/HCPCS: 36415; 80048; 85025

== ENCOUNTER 2023-03-14 16:08 | Outpatient (REF) | payer MEDICARE, SELFPAY ==
[2023-03-14 16:16] LABS: Appearance Urine Turbid; Color Urine Yellow; Glucose Urine UA Negative (Negative); Leukocyte Esterase Urine Large (3+) (Negative); Nitrite Urine Positive (Negative); Specific Gravity - Urine 1.015 (1.005-1.025); UMIC TRIGGER UA YES; Urine Blood Moderate (2+) (Negative); Urine Ketones Negative (Negative); Urine Protein 30 (1+) mg/dL (Neg-Trace)
[2023-03-14 16:22] LABS: Bacteria Urine 4+ (None Seen); Hyaline Casts Urine 0-2 /LPF (0-2); WBC Urine >50 /HPF (0-5)
== END 2023-03-14 16:09 | disposition home or self-care (01) ==
LOC: HO.MMNH3L 16:08
PROVIDERS: Visit Provider Family Medicine
DX: R30.0 Dysuria (principal)
CPT/HCPCS: 81001; 87086; 87088; 87186

== ENCOUNTER 2023-03-17 06:40 | Outpatient (REF) | payer MEDICARE, SELFPAY ==
[2023-03-17 06:31] LABS: MANUAL DIFF FLAG NO
[2023-03-17 07:19] LABS: Basophils Absolute Auto 0.2 X10*3/uL (0.0-0.2); Basophils Percent Auto 1.2 % (0-2); Eosinophils Absolute Auto 0.3 X10*3/uL (0.0-0.4); Eosinophils Percent Auto 2.2 % (0-4); Hemoglobin 10.8 g/dl (12.0-16.0); Imm Gran Abs Auto 0.05 X10*3/uL (0.00-0.03); Imm Gran Pct Auto 0.4 % (0.0-0.4); Lymphocytes Absolute Auto 1.5 X10*3/uL (1.2-4.9); Lymphocytes Percent Auto 11.8 % (20-40); Mean Corpuscular HGB Conc 30.9 g/dl (31.0-35.0); Mean Corpuscular Hemoglobin 26.7 pg (27.0-33.0); Mean Corpuscular Volume 86.6 fL (80.0-98.0); Mean Platelet Volume 10.6 fL (9.4-12.3); Monocytes Absolute Auto 0.6 X10*3/uL (0.1-1.2); Monocytes Percent Auto 4.8 % (2-11); Neutrophils Absolute Auto 10.3 x10*3/uL (2.0-8.3); Neutrophils Percent Auto 79.6 % (45-73); Platelet Count 635 X10*3/uL (160-400); Red Blood Count 4.04 X10*6/uL (4.20-5.50); Red Cell Distribution Width 14.9 % (11.0-16.0)
[2023-03-17 07:55] LABS: Anion Gap 14 (12-20); Blood Urea Nitrogen 12 mg/dL (9-16); Calcium 8.6 mg/dL (8.4-10.2); Carbon Dioxide 20 mmol/L (22-29); Chloride 109 mmol/L (96-108); Estimated Glomerular Filt Rate > 60; Glucose Random 78 mg/dL (60-115); Potassium 3.8 mmol/L (3.3-5.1); Sodium 139 mmol/L (135-145)
== END 2023-03-17 06:41 | disposition home or self-care (01) ==
LOC: HO.MMNH3L 06:40
PROVIDERS: Visit Provider Family Medicine
DX: I50.20 Unspecified systolic (congestive) heart failure (principal)
CPT/HCPCS: 36415; 80048; 85025

== ENCOUNTER 2023-03-23 05:58 | Outpatient (REF) | payer MEDICARE, SELFPAY ==
[2023-03-23 05:51] LABS: MANUAL DIFF FLAG NO
[2023-03-23 06:56] LABS: Anion Gap 13 (12-20); Blood Urea Nitrogen 10 mg/dL (9-16); Calcium 8.1 mg/dL (8.4-10.2); Carbon Dioxide 22 mmol/L (22-29); Chloride 107 mmol/L (96-108); Estimated Glomerular Filt Rate > 60; Glucose Random 96 mg/dL (60-115); Potassium 3.5 mmol/L (3.3-5.1); Sodium 138 mmol/L (135-145)
[2023-03-23 06:58] LABS: Basophils Absolute Auto 0.2 X10*3/uL (0.0-0.2); Basophils Percent Auto 1.7 % (0-2); Eosinophils Absolute Auto 0.3 X10*3/uL (0.0-0.4); Eosinophils Percent Auto 3.1 % (0-4); Hematocrit 33.7 % (37.0-47.0); Hemoglobin 10.4 g/dl (12.0-16.0); Imm Gran Abs Auto 0.04 X10*3/uL (0.00-0.03); Imm Gran Pct Auto 0.4 % (0.0-0.4); Lymphocytes Absolute Auto 1.9 X10*3/uL (1.2-4.9); Lymphocytes Percent Auto 18.3 % (20-40); Mean Corpuscular HGB Conc 30.9 g/dl (31.0-35.0); Mean Corpuscular Hemoglobin 26.7 pg (27.0-33.0); Mean Corpuscular Volume 86.4 fL (80.0-98.0); Mean Platelet Volume 10.8 fL (9.4-12.3); Monocytes Absolute Auto 0.7 X10*3/uL (0.1-1.2); Monocytes Percent Auto 6.9 % (2-11); Neutrophils Absolute Auto 7.1 x10*3/uL (2.0-8.3); Neutrophils Percent Auto 69.6 % (45-73); Platelet Count 516 X10*3/uL (160-400); Red Cell Distribution Width 14.8 % (11.0-16.0); White Blood Count 10.2 X10*3/uL (4.8-10.8)
== END 2023-03-23 05:59 | disposition home or self-care (01) ==
LOC: HO.MMNH3L 05:58
PROVIDERS: Visit Provider Family Medicine
DX: I50.20 Unspecified systolic (congestive) heart failure (principal)
CPT/HCPCS: 36415; 80048; 85025

== ENCOUNTER 2023-03-30 07:17 | Outpatient (REF) | payer MEDICARE, SELFPAY ==
[2023-03-30 06:08] LABS: MANUAL DIFF FLAG NO
[2023-03-30 06:44] LABS: Basophils Absolute Auto 0.2 X10*3/uL (0.0-0.2); Eosinophils Absolute Auto 0.3 X10*3/uL (0.0-0.4); Eosinophils Percent Auto 3.2 % (0-4); Hematocrit 35.4 % (37.0-47.0); Hemoglobin 10.6 g/dl (12.0-16.0); Imm Gran Abs Auto 0.04 X10*3/uL (0.00-0.03); Imm Gran Pct Auto 0.4 % (0.0-0.4); Lymphocytes Percent Auto 19.8 % (20-40); Mean Corpuscular HGB Conc 29.9 g/dl (31.0-35.0); Mean Corpuscular Hemoglobin 25.9 pg (27.0-33.0); Mean Corpuscular Volume 86.6 fL (80.0-98.0); Mean Platelet Volume 11.4 fL (9.4-12.3); Monocytes Absolute Auto 0.7 X10*3/uL (0.1-1.2); Monocytes Percent Auto 6.8 % (2-11); Neutrophils Absolute Auto 6.7 x10*3/uL (2.0-8.3); Neutrophils Percent Auto 67.8 % (45-73); Platelet Count 450 X10*3/uL (160-400); Red Blood Count 4.09 X10*6/uL (4.20-5.50); Red Cell Distribution Width 14.9 % (11.0-16.0); White Blood Count 9.9 X10*3/uL (4.8-10.8)
[2023-03-30 07:13] LABS: Anion Gap 12 (12-20); Blood Urea Nitrogen 11 mg/dL (9-16); Calcium 8.1 mg/dL (8.4-10.2); Carbon Dioxide 22 mmol/L (22-29); Chloride 108 mmol/L (96-108); Estimated Glomerular Filt Rate > 60; Glucose Random 83 mg/dL (60-115); Potassium 3.6 mmol/L (3.3-5.1); Sodium 138 mmol/L (135-145)
== END 2023-03-30 07:18 | disposition home or self-care (01) ==
LOC: HO.MMNH3L 07:17
PROVIDERS: Visit Provider Family Medicine
DX: I50.20 Unspecified systolic (congestive) heart failure (principal)
CPT/HCPCS: 36415; 80048; 85025

== ENCOUNTER 2023-04-06 05:57 | Outpatient (REF) | payer MEDICARE, SELFPAY ==
[2023-04-06 05:54] LABS: MANUAL DIFF FLAG NO
[2023-04-06 06:38] LABS: Anion Gap 15 (12-20); Blood Urea Nitrogen 16 mg/dL (9-16); Calcium 8.2 mg/dL (8.4-10.2); Carbon Dioxide 20 mmol/L (22-29); Chloride 108 mmol/L (96-108); Estimated Glomerular Filt Rate > 60; Glucose Random 98 mg/dL (60-115); Potassium 3.7 mmol/L (3.3-5.1); Sodium 139 mmol/L (135-145)
[2023-04-06 06:47] LABS: Basophils Absolute Auto 0.2 X10*3/uL (0.0-0.2); Basophils Percent Auto 1.1 % (0-2); Eosinophils Absolute Auto 0.4 X10*3/uL (0.0-0.4); Eosinophils Percent Auto 2.3 % (0-4); Hematocrit 37.6 % (37.0-47.0); Hemoglobin 11.6 g/dl (12.0-16.0); Imm Gran Abs Auto 0.05 X10*3/uL (0.00-0.03); Imm Gran Pct Auto 0.3 % (0.0-0.4); Lymphocytes Percent Auto 12.8 % (20-40); Mean Corpuscular HGB Conc 30.9 g/dl (31.0-35.0); Mean Corpuscular Hemoglobin 26.2 pg (27.0-33.0); Mean Corpuscular Volume 84.9 fL (80.0-98.0); Mean Platelet Volume 11.1 fL (9.4-12.3); Monocytes Absolute Auto 1.1 X10*3/uL (0.1-1.2); Monocytes Percent Auto 6.9 % (2-11); Neutrophils Absolute Auto 11.8 x10*3/uL (2.0-8.3); Neutrophils Percent Auto 76.6 % (45-73); Platelet Count 489 X10*3/uL (160-400); Red Blood Count 4.43 X10*6/uL (4.20-5.50); Red Cell Distribution Width 15.4 % (11.0-16.0); White Blood Count 15.4 X10*3/uL (4.8-10.8)
== END 2023-04-06 05:58 | disposition home or self-care (01) ==
LOC: HO.MMNH3L 05:57
PROVIDERS: Visit Provider Family Medicine
DX: I50.20 Unspecified systolic (congestive) heart failure (principal)
CPT/HCPCS: 36415; 80048; 85025

== ENCOUNTER 2023-04-13 06:25 | Outpatient (REF) | payer MEDICARE, SELFPAY ==
[2023-04-13 06:11] LABS: MANUAL DIFF FLAG NO
[2023-04-13 07:02] LABS: Basophils Percent Auto 0.1 % (0-2); Eosinophils Percent Auto 0.3 % (0-4); Hematocrit 41.1 % (37.0-47.0); Hemoglobin 12.9 g/dl (12.0-16.0); Imm Gran Pct Auto 1.5 % (0.0-0.4); Lymphocytes Absolute Auto 0.9 X10*3/uL (1.2-4.9); Lymphocytes Percent Auto 6.4 % (20-40); Mean Corpuscular HGB Conc 31.4 g/dl (31.0-35.0); Mean Corpuscular Hemoglobin 25.9 pg (27.0-33.0); Mean Corpuscular Volume 82.5 fL (80.0-98.0); Mean Platelet Volume 11.7 fL (9.4-12.3); Monocytes Absolute Auto 0.5 X10*3/uL (0.1-1.2); Monocytes Percent Auto 3.6 % (2-11); Neutrophils Absolute Auto 11.8 x10*3/uL (2.0-8.3); Neutrophils Percent Auto 88.1 % (45-73); Platelet Count 432 X10*3/uL (160-400); Red Blood Count 4.98 X10*6/uL (4.20-5.50); Red Cell Distribution Width 15.4 % (11.0-16.0); White Blood Count 13.4 X10*3/uL (4.8-10.8)
[2023-04-13 07:28] LABS: Anion Gap 13 (12-20); Blood Urea Nitrogen 13 mg/dL (9-16); Calcium 8.4 mg/dL (8.4-10.2); Carbon Dioxide 24 mmol/L (22-29); Chloride 103 mmol/L (96-108); Estimated Glomerular Filt Rate > 60; Glucose Random 160 mg/dL (60-115); Potassium 3.5 mmol/L (3.3-5.1); Sodium 136 mmol/L (135-145)
== END 2023-04-13 06:26 | disposition home or self-care (01) ==
LOC: HO.MMNH3L 06:25
PROVIDERS: Visit Provider Family Medicine
DX: I50.20 Unspecified systolic (congestive) heart failure (principal)
CPT/HCPCS: 36415; 80048; 85025

== ENCOUNTER 2023-04-20 06:16 | Outpatient (REF) | payer MEDICARE, SELFPAY ==
[2023-04-20 05:58] LABS: MANUAL DIFF FLAG NO
[2023-04-20 06:23] LABS: Basophils Absolute Auto 0.1 X10*3/uL (0.0-0.2); Basophils Percent Auto 0.4 % (0-2); Eosinophils Absolute Auto 0.2 X10*3/uL (0.0-0.4); Eosinophils Percent Auto 1.2 % (0-4); Hematocrit 37.9 % (37.0-47.0); Hemoglobin 12.1 g/dl (12.0-16.0); Imm Gran Abs Auto 0.11 X10*3/uL (0.00-0.03); Imm Gran Pct Auto 0.8 % (0.0-0.4); Lymphocytes Absolute Auto 1.7 X10*3/uL (1.2-4.9); Mean Corpuscular HGB Conc 31.9 g/dl (31.0-35.0); Mean Corpuscular Volume 81.3 fL (80.0-98.0); Mean Platelet Volume 10.3 fL (9.4-12.3); Monocytes Absolute Auto 0.4 X10*3/uL (0.1-1.2); Monocytes Percent Auto 2.6 % (2-11); Platelet Count 640 X10*3/uL (160-400); Red Blood Count 4.66 X10*6/uL (4.20-5.50); Red Cell Distribution Width 15.3 % (11.0-16.0); White Blood Count 14.5 X10*3/uL (4.8-10.8)
[2023-04-20 06:44] LABS: Anion Gap 14 (12-20); Blood Urea Nitrogen 17 mg/dL (9-16); Calcium 8.4 mg/dL (8.4-10.2); Carbon Dioxide 22 mmol/L (22-29); Chloride 107 mmol/L (96-108); Estimated Glomerular Filt Rate > 60; Glucose Random 148 mg/dL (60-115); Potassium 3.7 mmol/L (3.3-5.1); Sodium 139 mmol/L (135-145)
== END 2023-04-20 06:17 | disposition home or self-care (01) ==
LOC: HO.MMNH3L 06:16
PROVIDERS: Visit Provider Family Medicine
DX: I50.20 Unspecified systolic (congestive) heart failure (principal)
CPT/HCPCS: 36415; 80048; 85025

== ENCOUNTER 2023-04-27 06:34 | Outpatient (REF) | payer MEDICARE, SELFPAY ==
[2023-04-27 06:41] LABS: MANUAL DIFF FLAG NO
[2023-04-27 07:21] LABS: Basophils Absolute Auto 0.2 X10*3/uL (0.0-0.2); Eosinophils Absolute Auto 0.3 X10*3/uL (0.0-0.4); Eosinophils Percent Auto 2.9 % (0-4); Hemoglobin 10.7 g/dl (12.0-16.0); Imm Gran Abs Auto 0.03 X10*3/uL (0.00-0.03); Imm Gran Pct Auto 0.3 % (0.0-0.4); Lymphocytes Absolute Auto 1.8 X10*3/uL (1.2-4.9); Mean Corpuscular HGB Conc 30.6 g/dl (31.0-35.0); Mean Corpuscular Hemoglobin 25.7 pg (27.0-33.0); Mean Corpuscular Volume 84.1 fL (80.0-98.0); Mean Platelet Volume 11.6 fL (9.4-12.3); Monocytes Absolute Auto 0.3 X10*3/uL (0.1-1.2); Monocytes Percent Auto 3.3 % (2-11); Neutrophils Absolute Auto 6.3 x10*3/uL (2.0-8.3); Neutrophils Percent Auto 71.5 % (45-73); Platelet Count 467 X10*3/uL (160-400); Red Blood Count 4.16 X10*6/uL (4.20-5.50); Red Cell Distribution Width 15.9 % (11.0-16.0); White Blood Count 8.9 X10*3/uL (4.8-10.8)
[2023-04-27 08:20] LABS: Blood Urea Nitrogen 18 mg/dL (9-16); Calcium 8.1 mg/dL (8.4-10.2); Estimated Glomerular Filt Rate > 60; Glucose Random 103 mg/dL (60-115)
[2023-04-27 08:25] LABS: Anion Gap 13 (12-20); Carbon Dioxide 21 mmol/L (22-29); Chloride 110 mmol/L (96-108); Potassium 3.5 mmol/L (3.3-5.1); Sodium 140 mmol/L (135-145)
== END 2023-04-27 06:35 | disposition home or self-care (01) ==
LOC: HO.MMNH3L 06:34
PROVIDERS: Visit Provider Family Medicine
DX: I50.20 Unspecified systolic (congestive) heart failure (principal)
CPT/HCPCS: 36415; 80048; 85025

== ENCOUNTER 2023-05-04 06:11 | Outpatient (REF) | payer MEDICARE, SELFPAY ==
[2023-05-04 06:09] LABS: MANUAL DIFF FLAG NO
[2023-05-04 06:51] LABS: Basophils Absolute Auto 0.1 X10*3/uL (0.0-0.2); Basophils Percent Auto 1.7 % (0-2); Eosinophils Absolute Auto 0.3 X10*3/uL (0.0-0.4); Eosinophils Percent Auto 3.2 % (0-4); Hematocrit 39.8 % (37.0-47.0); Hemoglobin 12.4 g/dl (12.0-16.0); Imm Gran Abs Auto 0.04 X10*3/uL (0.00-0.03); Imm Gran Pct Auto 0.5 % (0.0-0.4); Lymphocytes Absolute Auto 1.8 X10*3/uL (1.2-4.9); Lymphocytes Percent Auto 21.5 % (20-40); Mean Corpuscular HGB Conc 31.2 g/dl (31.0-35.0); Mean Corpuscular Volume 83.4 fL (80.0-98.0); Mean Platelet Volume 10.9 fL (9.4-12.3); Monocytes Absolute Auto 0.4 X10*3/uL (0.1-1.2); Monocytes Percent Auto 4.5 % (2-11); Neutrophils Absolute Auto 5.7 x10*3/uL (2.0-8.3); Neutrophils Percent Auto 68.6 % (45-73); Platelet Count 440 X10*3/uL (160-400); Red Blood Count 4.77 X10*6/uL (4.20-5.50); White Blood Count 8.4 X10*3/uL (4.8-10.8)
[2023-05-04 07:14] LABS: Anion Gap 15 (12-20); Blood Urea Nitrogen 14 mg/dL (9-16); Calcium 8.8 mg/dL (8.4-10.2); Carbon Dioxide 25 mmol/L (22-29); Chloride 104 mmol/L (96-108); Estimated Glomerular Filt Rate > 60; Glucose Random 101 mg/dL (60-115); Potassium 3.8 mmol/L (3.3-5.1); Sodium 140 mmol/L (135-145)
== END 2023-05-04 06:12 | disposition home or self-care (01) ==
LOC: HO.MMNH3L 06:11
PROVIDERS: Visit Provider Family Medicine
DX: I50.20 Unspecified systolic (congestive) heart failure (principal)
CPT/HCPCS: 36415; 80048; 85025

== ENCOUNTER 2023-05-11 06:17 | Outpatient (REF) | payer MEDICARE, SELFPAY ==
[2023-05-11 06:09] LABS: MANUAL DIFF FLAG NO
[2023-05-11 06:50] LABS: Basophils Absolute Auto 0.2 X10*3/uL (0.0-0.2); Basophils Percent Auto 1.7 % (0-2); Eosinophils Absolute Auto 0.2 X10*3/uL (0.0-0.4); Eosinophils Percent Auto 2.4 % (0-4); Hematocrit 38.1 % (37.0-47.0); Hemoglobin 11.8 g/dl (12.0-16.0); Imm Gran Abs Auto 0.05 X10*3/uL (0.00-0.03); Imm Gran Pct Auto 0.6 % (0.0-0.4); Lymphocytes Absolute Auto 2.2 X10*3/uL (1.2-4.9); Lymphocytes Percent Auto 24.3 % (20-40); Mean Corpuscular Hemoglobin 25.5 pg (27.0-33.0); Mean Corpuscular Volume 82.3 fL (80.0-98.0); Mean Platelet Volume 10.8 fL (9.4-12.3); Monocytes Absolute Auto 0.5 X10*3/uL (0.1-1.2); Monocytes Percent Auto 5.4 % (2-11); Neutrophils Absolute Auto 5.9 x10*3/uL (2.0-8.3); Neutrophils Percent Auto 65.6 % (45-73); Platelet Count 420 X10*3/uL (160-400); Red Blood Count 4.63 X10*6/uL (4.20-5.50); Red Cell Distribution Width 17.1 % (11.0-16.0)
[2023-05-11 07:29] LABS: Anion Gap 15 (12-20); Blood Urea Nitrogen 12 mg/dL (9-16); Calcium 8.5 mg/dL (8.4-10.2); Carbon Dioxide 22 mmol/L (22-29); Chloride 107 mmol/L (96-108); Estimated Glomerular Filt Rate > 60; Glucose Random 91 mg/dL (60-115); Potassium 3.9 mmol/L (3.3-5.1); Sodium 140 mmol/L (135-145)
== END 2023-05-11 06:18 | disposition home or self-care (01) ==
LOC: HO.MMNH3L 06:17
PROVIDERS: Visit Provider Family Medicine
DX: I50.20 Unspecified systolic (congestive) heart failure (principal)
CPT/HCPCS: 36415; 80048; 85025

== ENCOUNTER 2023-05-18 07:42 | Outpatient (REF) | payer MEDICARE, SELFPAY ==
[2023-05-18 06:19] LABS: MANUAL DIFF FLAG NO
[2023-05-18 07:05] LABS: Basophils Absolute Auto 0.2 X10*3/uL (0.0-0.2); Basophils Percent Auto 1.2 % (0-2); Eosinophils Absolute Auto 0.2 X10*3/uL (0.0-0.4); Eosinophils Percent Auto 1.4 % (0-4); Hematocrit 42.7 % (37.0-47.0); Hemoglobin 13.3 g/dl (12.0-16.0); Imm Gran Abs Auto 0.06 X10*3/uL (0.00-0.03); Imm Gran Pct Auto 0.4 % (0.0-0.4); Lymphocytes Absolute Auto 1.9 X10*3/uL (1.2-4.9); Lymphocytes Percent Auto 13.6 % (20-40); Mean Corpuscular HGB Conc 31.1 g/dl (31.0-35.0); Mean Corpuscular Hemoglobin 25.5 pg (27.0-33.0); Mean Corpuscular Volume 81.8 fL (80.0-98.0); Mean Platelet Volume 10.9 fL (9.4-12.3); Monocytes Absolute Auto 0.7 X10*3/uL (0.1-1.2); Monocytes Percent Auto 5.4 % (2-11); Neutrophils Absolute Auto 10.8 x10*3/uL (2.0-8.3); Platelet Count 585 X10*3/uL (160-400); Red Blood Count 5.22 X10*6/uL (4.20-5.50); Red Cell Distribution Width 17.3 % (11.0-16.0); White Blood Count 13.8 X10*3/uL (4.8-10.8)
[2023-05-18 07:29] LABS: Anion Gap 14 (12-20); Blood Urea Nitrogen 12 mg/dL (9-16); Calcium 8.7 mg/dL (8.4-10.2); Carbon Dioxide 26 mmol/L (22-29); Chloride 103 mmol/L (96-108); Estimated Glomerular Filt Rate > 60; Glucose Random 145 mg/dL (60-115); Sodium 140 mmol/L (135-145)
== END 2023-05-18 07:43 | disposition home or self-care (01) ==
LOC: HO.MMNH3L 07:42
PROVIDERS: Visit Provider Family Medicine
DX: I50.20 Unspecified systolic (congestive) heart failure (principal)
CPT/HCPCS: 36415; 80048; 85025

== ENCOUNTER 2023-05-25 06:31 | Outpatient (REF) | payer MEDICARE, SELFPAY ==
[2023-05-25 06:12] LABS: MANUAL DIFF FLAG NO
[2023-05-25 06:58] LABS: Basophils Absolute Auto 0.2 X10*3/uL (0.0-0.2); Basophils Percent Auto 1.6 % (0-2); Eosinophils Absolute Auto 0.2 X10*3/uL (0.0-0.4); Eosinophils Percent Auto 2.4 % (0-4); Hematocrit 35.1 % (37.0-47.0); Hemoglobin 10.9 g/dl (12.0-16.0); Imm Gran Abs Auto 0.03 X10*3/uL (0.00-0.03); Imm Gran Pct Auto 0.3 % (0.0-0.4); Lymphocytes Absolute Auto 1.8 X10*3/uL (1.2-4.9); Lymphocytes Percent Auto 18.1 % (20-40); Mean Corpuscular HGB Conc 31.1 g/dl (31.0-35.0); Mean Corpuscular Volume 83.8 fL (80.0-98.0); Mean Platelet Volume 11.5 fL (9.4-12.3); Monocytes Absolute Auto 0.7 X10*3/uL (0.1-1.2); Monocytes Percent Auto 6.7 % (2-11); Neutrophils Absolute Auto 7.1 x10*3/uL (2.0-8.3); Neutrophils Percent Auto 70.9 % (45-73); Platelet Count 433 X10*3/uL (160-400); Red Blood Count 4.19 X10*6/uL (4.20-5.50); Red Cell Distribution Width 17.9 % (11.0-16.0)
[2023-05-25 07:12] LABS: Anion Gap 13 (12-20); Blood Urea Nitrogen 14 mg/dL (9-16); Calcium 7.7 mg/dL (8.4-10.2); Carbon Dioxide 23 mmol/L (22-29); Chloride 107 mmol/L (96-108); Estimated Glomerular Filt Rate > 60; Glucose Random 89 mg/dL (60-115); Potassium 3.6 mmol/L (3.3-5.1); Sodium 139 mmol/L (135-145)
== END 2023-05-25 06:32 | disposition home or self-care (01) ==
LOC: HO.MMNH3L 06:31
PROVIDERS: Visit Provider Family Medicine
DX: I50.20 Unspecified systolic (congestive) heart failure (principal)
CPT/HCPCS: 36415; 80048; 85025

== ENCOUNTER 2023-06-01 06:54 | Outpatient (REF) | payer MEDICARE, SELFPAY ==
[2023-06-01 06:39] LABS: MANUAL DIFF FLAG NO
[2023-06-01 07:08] LABS: Basophils Absolute Auto 0.2 X10*3/uL (0.0-0.2); Basophils Percent Auto 1.5 % (0-2); Eosinophils Absolute Auto 0.2 X10*3/uL (0.0-0.4); Eosinophils Percent Auto 2.1 % (0-4); Hemoglobin 11.7 g/dl (12.0-16.0); Imm Gran Abs Auto 0.03 X10*3/uL (0.00-0.03); Imm Gran Pct Auto 0.3 % (0.0-0.4); Lymphocytes Percent Auto 17.6 % (20-40); Mean Corpuscular HGB Conc 30.8 g/dl (31.0-35.0); Mean Corpuscular Hemoglobin 25.7 pg (27.0-33.0); Mean Corpuscular Volume 83.3 fL (80.0-98.0); Mean Platelet Volume 11.4 fL (9.4-12.3); Monocytes Absolute Auto 0.5 X10*3/uL (0.1-1.2); Monocytes Percent Auto 4.8 % (2-11); Neutrophils Absolute Auto 8.4 x10*3/uL (2.0-8.3); Neutrophils Percent Auto 73.7 % (45-73); Platelet Count 477 X10*3/uL (160-400); Red Blood Count 4.56 X10*6/uL (4.20-5.50); Red Cell Distribution Width 18.4 % (11.0-16.0); White Blood Count 11.3 X10*3/uL (4.8-10.8)
[2023-06-01 07:38] LABS: Anion Gap 15 (12-20); Blood Urea Nitrogen 14 mg/dL (9-16); Calcium 8.5 mg/dL (8.4-10.2); Carbon Dioxide 25 mmol/L (22-29); Chloride 104 mmol/L (96-108); Estimated Glomerular Filt Rate > 60; Glucose Random 99 mg/dL (60-115); Potassium 3.6 mmol/L (3.3-5.1); Sodium 140 mmol/L (135-145)
== END 2023-06-01 06:55 | disposition home or self-care (01) ==
LOC: HO.MMNH3L 06:54
PROVIDERS: Visit Provider Family Medicine
DX: I50.20 Unspecified systolic (congestive) heart failure (principal)
CPT/HCPCS: 36415; 80048; 85025

== ENCOUNTER 2023-06-08 06:30 | Outpatient (REF) | payer MEDICARE, SELFPAY ==
[2023-06-08 06:16] LABS: MANUAL DIFF FLAG NO
[2023-06-08 07:16] LABS: Basophils Absolute Auto 0.2 X10*3/uL (0.0-0.2); Basophils Percent Auto 1.1 % (0-2); Eosinophils Absolute Auto 0.3 X10*3/uL (0.0-0.4); Eosinophils Percent Auto 1.6 % (0-4); Hematocrit 38.4 % (37.0-47.0); Hemoglobin 11.8 g/dl (12.0-16.0); Imm Gran Abs Auto 0.09 X10*3/uL (0.00-0.03); Imm Gran Pct Auto 0.6 % (0.0-0.4); Lymphocytes Absolute Auto 1.8 X10*3/uL (1.2-4.9); Lymphocytes Percent Auto 11.2 % (20-40); Mean Corpuscular HGB Conc 30.7 g/dl (31.0-35.0); Mean Corpuscular Hemoglobin 25.9 pg (27.0-33.0); Mean Corpuscular Volume 84.4 fL (80.0-98.0); Mean Platelet Volume 11.1 fL (9.4-12.3); Monocytes Absolute Auto 0.7 X10*3/uL (0.1-1.2); Monocytes Percent Auto 4.3 % (2-11); Neutrophils Absolute Auto 13.1 x10*3/uL (2.0-8.3); Neutrophils Percent Auto 81.2 % (45-73); Platelet Count 448 X10*3/uL (160-400); Red Blood Count 4.55 X10*6/uL (4.20-5.50); Red Cell Distribution Width 18.3 % (11.0-16.0); White Blood Count 16.2 X10*3/uL (4.8-10.8)
[2023-06-08 07:30] LABS: Anion Gap 14 (12-20); Blood Urea Nitrogen 12 mg/dL (9-16); Calcium 8.5 mg/dL (8.4-10.2); Carbon Dioxide 23 mmol/L (22-29); Chloride 107 mmol/L (96-108); Estimated Glomerular Filt Rate > 60; Glucose Random 94 mg/dL (60-115); Potassium 4.2 mmol/L (3.3-5.1); Sodium 140 mmol/L (135-145)
[2023-06-08 17:46] LABS: Appearance Urine Turbid; Color Urine Yellow; Glucose Urine UA Negative (Negative); Leukocyte Esterase Urine Large (3+) (Negative); Nitrite Urine Negative (Negative); UMIC TRIGGER UACC YES; Urine Blood Small (1+) (Negative); Urine Ketones Negative (Negative); Urine Protein 30 (1+) mg/dL (Neg-Trace)
[2023-06-08 18:06] LABS: Bacteria Urine 4+ (None Seen); Hyaline Casts Urine >20 /LPF (0-2); RBC Urine 0-2 /HPF (0-2); Squamous Epithelial Cell Urine 0-2 /HPF (0-2); UACC Culture Trigger YES; WBC Urine >50 /HPF (0-5)
== END 2023-06-08 06:31 | disposition home or self-care (01) ==
LOC: HO.MMNH3L 06:30
PROVIDERS: Visit Provider Family Medicine
DX: I50.20 Unspecified systolic (congestive) heart failure (principal); R82.90 Unspecified abnormal findings in urine
CPT/HCPCS: 36415; 80048; 81001; 85025; 87086

== ENCOUNTER 2023-06-15 07:29 | Outpatient (REF) | payer MEDICARE, SELFPAY ==
[2023-06-15 06:08] LABS: MANUAL DIFF FLAG NO
[2023-06-15 07:00] LABS: Basophils Absolute Auto 0.2 X10*3/uL (0.0-0.2); Basophils Percent Auto 1.3 % (0-2); Eosinophils Absolute Auto 0.4 X10*3/uL (0.0-0.4); Eosinophils Percent Auto 2.9 % (0-4); Hematocrit 36.7 % (37.0-47.0); Hemoglobin 11.4 g/dl (12.0-16.0); Imm Gran Abs Auto 0.07 X10*3/uL (0.00-0.03); Imm Gran Pct Auto 0.6 % (0.0-0.4); Lymphocytes Percent Auto 16.8 % (20-40); Mean Corpuscular HGB Conc 31.1 g/dl (31.0-35.0); Mean Corpuscular Hemoglobin 26.3 pg (27.0-33.0); Mean Corpuscular Volume 84.6 fL (80.0-98.0); Mean Platelet Volume 11.1 fL (9.4-12.3); Monocytes Absolute Auto 0.6 X10*3/uL (0.1-1.2); Monocytes Percent Auto 5.3 % (2-11); Neutrophils Absolute Auto 8.8 x10*3/uL (2.0-8.3); Neutrophils Percent Auto 73.1 % (45-73); Platelet Count 461 X10*3/uL (160-400); Red Blood Count 4.34 X10*6/uL (4.20-5.50); Red Cell Distribution Width 18.3 % (11.0-16.0)
[2023-06-15 07:18] LABS: Anion Gap 12 (12-20); Blood Urea Nitrogen 12 mg/dL (9-16); Calcium 8.8 mg/dL (8.4-10.2); Carbon Dioxide 28 mmol/L (22-29); Chloride 105 mmol/L (96-108); Estimated Glomerular Filt Rate > 60; Glucose Random 95 mg/dL (60-115); Potassium 3.5 mmol/L (3.3-5.1); Sodium 141 mmol/L (135-145)
== END 2023-06-15 07:30 | disposition home or self-care (01) ==
LOC: HO.MMNH3L 07:29
PROVIDERS: Visit Provider Family Medicine
DX: I50.20 Unspecified systolic (congestive) heart failure (principal)
CPT/HCPCS: 36415; 80048; 85025

== ENCOUNTER 2023-06-22 07:13 | Outpatient (REF) | payer MEDICARE, SELFPAY ==
[2023-06-22 06:04] LABS: MANUAL DIFF FLAG NO
[2023-06-22 06:25] LABS: Basophils Absolute Auto 0.2 X10*3/uL (0.0-0.2); Basophils Percent Auto 1.3 % (0-2); Eosinophils Absolute Auto 0.3 X10*3/uL (0.0-0.4); Eosinophils Percent Auto 2.3 % (0-4); Hematocrit 36.9 % (37.0-47.0); Hemoglobin 11.4 g/dl (12.0-16.0); Imm Gran Abs Auto 0.05 X10*3/uL (0.00-0.03); Imm Gran Pct Auto 0.4 % (0.0-0.4); Lymphocytes Absolute Auto 2.1 X10*3/uL (1.2-4.9); Lymphocytes Percent Auto 15.7 % (20-40); Mean Corpuscular HGB Conc 30.9 g/dl (31.0-35.0); Mean Corpuscular Hemoglobin 26.4 pg (27.0-33.0); Mean Corpuscular Volume 85.4 fL (80.0-98.0); Mean Platelet Volume 11.6 fL (9.4-12.3); Monocytes Absolute Auto 0.8 X10*3/uL (0.1-1.2); Monocytes Percent Auto 5.8 % (2-11); Neutrophils Absolute Auto 10.1 x10*3/uL (2.0-8.3); Neutrophils Percent Auto 74.5 % (45-73); Platelet Count 446 X10*3/uL (160-400); Red Blood Count 4.32 X10*6/uL (4.20-5.50); Red Cell Distribution Width 17.8 % (11.0-16.0); White Blood Count 13.5 X10*3/uL (4.8-10.8)
[2023-06-22 06:51] LABS: Anion Gap 14 (12-20); Blood Urea Nitrogen 13 mg/dL (9-16); Calcium 8.1 mg/dL (8.4-10.2); Carbon Dioxide 21 mmol/L (22-29); Chloride 109 mmol/L (96-108); Estimated Glomerular Filt Rate > 60; Glucose Random 90 mg/dL (60-115); Potassium 3.6 mmol/L (3.3-5.1); Sodium 140 mmol/L (135-145)
== END 2023-06-22 07:14 | disposition home or self-care (01) ==
LOC: HO.MMNH3L 07:13
PROVIDERS: Visit Provider Family Medicine
DX: I50.20 Unspecified systolic (congestive) heart failure (principal)
CPT/HCPCS: 36415; 80048; 85025

== ENCOUNTER 2023-06-29 06:26 | Outpatient (REF) | payer MEDICARE, SELFPAY ==
[2023-06-29 06:05] LABS: MANUAL DIFF FLAG NO
[2023-06-29 06:46] LABS: Basophils Absolute Auto 0.2 X10*3/uL (0.0-0.2); Basophils Percent Auto 1.6 % (0-2); Eosinophils Absolute Auto 0.4 X10*3/uL (0.0-0.4); Eosinophils Percent Auto 2.8 % (0-4); Hematocrit 35.9 % (37.0-47.0); Imm Gran Abs Auto 0.06 X10*3/uL (0.00-0.03); Imm Gran Pct Auto 0.5 % (0.0-0.4); Lymphocytes Absolute Auto 2.1 X10*3/uL (1.2-4.9); Lymphocytes Percent Auto 16.7 % (20-40); Mean Corpuscular HGB Conc 30.6 g/dl (31.0-35.0); Mean Corpuscular Hemoglobin 26.3 pg (27.0-33.0); Mean Corpuscular Volume 85.7 fL (80.0-98.0); Mean Platelet Volume 11.4 fL (9.4-12.3); Monocytes Absolute Auto 0.7 X10*3/uL (0.1-1.2); Monocytes Percent Auto 5.4 % (2-11); Neutrophils Absolute Auto 9.1 x10*3/uL (2.0-8.3); Platelet Count 437 X10*3/uL (160-400); Red Blood Count 4.19 X10*6/uL (4.20-5.50); Red Cell Distribution Width 17.6 % (11.0-16.0); White Blood Count 12.5 X10*3/uL (4.8-10.8)
[2023-06-29 07:07] LABS: Anion Gap 12 (12-20); Blood Urea Nitrogen 17 mg/dL (9-16); Calcium 8.2 mg/dL (8.4-10.2); Carbon Dioxide 23 mmol/L (22-29); Chloride 108 mmol/L (96-108); Estimated Glomerular Filt Rate > 60; Glucose Random 87 mg/dL (60-115); Potassium 3.3 mmol/L (3.3-5.1); Sodium 140 mmol/L (135-145)
== END 2023-06-29 06:27 | disposition home or self-care (01) ==
LOC: HO.MMNH3L 06:26
PROVIDERS: Visit Provider Family Medicine
DX: J44.9 Chronic obstructive pulmonary disease, unspecified (principal); F41.1 Generalized anxiety disorder; R41.89 Other symptoms and signs involving cognitive functions and awareness
CPT/HCPCS: 36415; 80048; 85025

== ENCOUNTER 2023-07-07 06:31 | Outpatient (REF) | payer MEDICARE, SELFPAY ==
[2023-07-07 06:18] LABS: MANUAL DIFF FLAG NO
[2023-07-07 06:44] LABS: Basophils Absolute Auto 0.2 X10*3/uL (0.0-0.2); Basophils Percent Auto 1.5 % (0-2); Eosinophils Absolute Auto 0.4 X10*3/uL (0.0-0.4); Eosinophils Percent Auto 2.8 % (0-4); Hematocrit 36.3 % (37.0-47.0); Hemoglobin 11.3 g/dl (12.0-16.0); Imm Gran Abs Auto 0.09 X10*3/uL (0.00-0.03); Imm Gran Pct Auto 0.6 % (0.0-0.4); Lymphocytes Absolute Auto 2.3 X10*3/uL (1.2-4.9); Lymphocytes Percent Auto 15.7 % (20-40); Mean Corpuscular HGB Conc 31.1 g/dl (31.0-35.0); Mean Corpuscular Hemoglobin 26.9 pg (27.0-33.0); Mean Corpuscular Volume 86.4 fL (80.0-98.0); Mean Platelet Volume 11.5 fL (9.4-12.3); Monocytes Absolute Auto 0.8 X10*3/uL (0.1-1.2); Monocytes Percent Auto 5.3 % (2-11); Neutrophils Absolute Auto 10.7 x10*3/uL (2.0-8.3); Neutrophils Percent Auto 74.1 % (45-73); Platelet Count 520 X10*3/uL (160-400); Red Cell Distribution Width 17.2 % (11.0-16.0); White Blood Count 14.4 X10*3/uL (4.8-10.8)
[2023-07-07 07:10] LABS: Anion Gap 14 (12-20); Blood Urea Nitrogen 14 mg/dL (9-16); Calcium 8.3 mg/dL (8.4-10.2); Carbon Dioxide 22 mmol/L (22-29); Chloride 108 mmol/L (96-108); Estimated Glomerular Filt Rate > 60; Glucose Random 95 mg/dL (60-115); Potassium 3.9 mmol/L (3.3-5.1); Sodium 140 mmol/L (135-145)
== END 2023-07-07 06:32 | disposition home or self-care (01) ==
LOC: HO.MMNH3L 06:31
PROVIDERS: Visit Provider Family Medicine
DX: I50.20 Unspecified systolic (congestive) heart failure (principal)
CPT/HCPCS: 36415; 80048; 85025

== ENCOUNTER 2023-07-14 06:26 | Outpatient (REF) | payer MEDICARE, SELFPAY ==
[2023-07-14 06:11] LABS: MANUAL DIFF FLAG NO
[2023-07-14 06:35] LABS: Basophils Absolute Auto 0.3 X10*3/uL (0.0-0.2); Basophils Percent Auto 1.5 % (0-2); Eosinophils Absolute Auto 0.4 X10*3/uL (0.0-0.4); Eosinophils Percent Auto 2.4 % (0-4); Hematocrit 35.8 % (37.0-47.0); Imm Gran Pct Auto 0.5 % (0.0-0.4); Lymphocytes Absolute Auto 2.1 X10*3/uL (1.2-4.9); Lymphocytes Percent Auto 11.7 % (20-40); Mean Corpuscular HGB Conc 30.7 g/dl (31.0-35.0); Mean Corpuscular Hemoglobin 26.6 pg (27.0-33.0); Mean Corpuscular Volume 86.5 fL (80.0-98.0); Mean Platelet Volume 11.3 fL (9.4-12.3); Monocytes Absolute Auto 1.1 X10*3/uL (0.1-1.2); Monocytes Percent Auto 5.8 % (2-11); Neutrophils Absolute Auto 14.3 x10*3/uL (2.0-8.3); Neutrophils Percent Auto 78.1 % (45-73); Platelet Count 533 X10*3/uL (160-400); Red Blood Count 4.14 X10*6/uL (4.20-5.50); White Blood Count 18.3 X10*3/uL (4.8-10.8)
[2023-07-14 07:10] LABS: Anion Gap 11 (12-20); Blood Urea Nitrogen 15 mg/dL (9-16); Calcium 8.5 mg/dL (8.4-10.2); Carbon Dioxide 25 mmol/L (22-29); Chloride 109 mmol/L (96-108); Estimated Glomerular Filt Rate > 60; Glucose Random 87 mg/dL (60-115); Potassium 3.8 mmol/L (3.3-5.1); Sodium 141 mmol/L (135-145)
== END 2023-07-14 06:27 | disposition home or self-care (01) ==
LOC: HO.MMNH3L 06:26
PROVIDERS: Visit Provider Family Medicine
DX: I50.20 Unspecified systolic (congestive) heart failure (principal)
CPT/HCPCS: 36415; 80048; 85025

== ENCOUNTER 2023-07-17 11:59 | Outpatient (REF) | payer MEDICARE, SELFPAY | END 2023-07-17 12:00 | disposition home or self-care (01) | LOC: HO.MMNH3L 11:59 | PROVIDERS: Visit Provider Family Medicine | DX: N32.81 Overactive bladder (principal); R82.90 Unspecified abnormal findings in urine | CPT/HCPCS: 81001; 87086; 87088; 87186 ==

== ENCOUNTER 2023-07-20 10:15 | Outpatient (REF) | payer MEDICARE, SELFPAY ==
[2023-07-20 06:23] LABS: MANUAL DIFF FLAG NO
[2023-07-20 06:51] LABS: Basophils Absolute Auto 0.2 X10*3/uL (0.0-0.2); Basophils Percent Auto 1.5 % (0-2); Eosinophils Absolute Auto 0.5 X10*3/uL (0.0-0.4); Eosinophils Percent Auto 3.1 % (0-4); Hematocrit 37.5 % (37.0-47.0); Hemoglobin 11.5 g/dl (12.0-16.0); Imm Gran Abs Auto 0.09 X10*3/uL (0.00-0.03); Imm Gran Pct Auto 0.6 % (0.0-0.4); Lymphocytes Absolute Auto 1.9 X10*3/uL (1.2-4.9); Mean Corpuscular HGB Conc 30.7 g/dl (31.0-35.0); Mean Corpuscular Hemoglobin 26.6 pg (27.0-33.0); Mean Corpuscular Volume 86.6 fL (80.0-98.0); Mean Platelet Volume 11.3 fL (9.4-12.3); Monocytes Absolute Auto 0.9 X10*3/uL (0.1-1.2); Monocytes Percent Auto 5.3 % (2-11); Neutrophils Absolute Auto 12.5 x10*3/uL (2.0-8.3); Neutrophils Percent Auto 77.5 % (45-73); Platelet Count 480 X10*3/uL (160-400); Red Blood Count 4.33 X10*6/uL (4.20-5.50); Red Cell Distribution Width 16.5 % (11.0-16.0)
[2023-07-20 07:13] LABS: Anion Gap 13 (12-20); Blood Urea Nitrogen 15 mg/dL (9-16); Calcium 8.2 mg/dL (8.4-10.2); Carbon Dioxide 24 mmol/L (22-29); Chloride 107 mmol/L (96-108); Estimated Glomerular Filt Rate > 60; Glucose Random 102 mg/dL (60-115); Potassium 3.9 mmol/L (3.3-5.1); Sodium 140 mmol/L (135-145)
== END 2023-07-20 10:16 | disposition home or self-care (01) ==
LOC: HO.MMNH3L 10:15
PROVIDERS: Visit Provider Family Medicine
DX: I50.20 Unspecified systolic (congestive) heart failure (principal)
CPT/HCPCS: 36415; 80048; 85025

== ENCOUNTER 2023-07-27 07:22 | Outpatient (REF) | payer MEDICARE, SELFPAY ==
[2023-07-27 06:32] LABS: MANUAL DIFF FLAG NO
[2023-07-27 06:48] LABS: Basophils Absolute Auto 0.2 X10*3/uL (0.0-0.2); Basophils Percent Auto 1.8 % (0-2); Eosinophils Absolute Auto 0.4 X10*3/uL (0.0-0.4); Eosinophils Percent Auto 4.5 % (0-4); Hematocrit 34.1 % (37.0-47.0); Hemoglobin 10.6 g/dl (12.0-16.0); Imm Gran Abs Auto 0.06 X10*3/uL (0.00-0.03); Imm Gran Pct Auto 0.6 % (0.0-0.4); Lymphocytes Absolute Auto 1.9 X10*3/uL (1.2-4.9); Lymphocytes Percent Auto 19.7 % (20-40); Mean Corpuscular HGB Conc 31.1 g/dl (31.0-35.0); Mean Corpuscular Hemoglobin 26.5 pg (27.0-33.0); Mean Corpuscular Volume 85.3 fL (80.0-98.0); Mean Platelet Volume 11.2 fL (9.4-12.3); Monocytes Absolute Auto 0.6 X10*3/uL (0.1-1.2); Monocytes Percent Auto 6.1 % (2-11); Neutrophils Absolute Auto 6.5 x10*3/uL (2.0-8.3); Neutrophils Percent Auto 67.3 % (45-73); Platelet Count 463 X10*3/uL (160-400); White Blood Count 9.6 X10*3/uL (4.8-10.8)
[2023-07-27 07:06] LABS: Anion Gap 13 (12-20); Blood Urea Nitrogen 13 mg/dL (9-16); Calcium 8.2 mg/dL (8.4-10.2); Carbon Dioxide 24 mmol/L (22-29); Chloride 108 mmol/L (96-108); Estimated Glomerular Filt Rate > 60; Glucose Random 102 mg/dL (60-115); Potassium 3.6 mmol/L (3.3-5.1); Sodium 141 mmol/L (135-145)
== END 2023-07-27 07:23 | disposition home or self-care (01) ==
LOC: HO.MMNH3L 07:22
PROVIDERS: Visit Provider Family Medicine
DX: I50.20 Unspecified systolic (congestive) heart failure (principal)
CPT/HCPCS: 36415; 80048; 85025

== ENCOUNTER 2023-08-03 06:40 | Outpatient (REF) | payer MEDICARE, SELFPAY ==
[2023-08-03 06:10] LABS: MANUAL DIFF FLAG NO
[2023-08-03 06:44] LABS: Basophils Absolute Auto 0.2 X10*3/uL (0.0-0.2); Basophils Percent Auto 1.6 % (0-2); Eosinophils Absolute Auto 0.3 X10*3/uL (0.0-0.4); Eosinophils Percent Auto 2.7 % (0-4); Hematocrit 34.8 % (37.0-47.0); Hemoglobin 10.8 g/dl (12.0-16.0); Imm Gran Abs Auto 0.04 X10*3/uL (0.00-0.03); Imm Gran Pct Auto 0.4 % (0.0-0.4); Lymphocytes Absolute Auto 1.8 X10*3/uL (1.2-4.9); Lymphocytes Percent Auto 16.1 % (20-40); Mean Corpuscular Hemoglobin 26.9 pg (27.0-33.0); Mean Corpuscular Volume 86.8 fL (80.0-98.0); Mean Platelet Volume 12.1 fL (9.4-12.3); Monocytes Absolute Auto 0.6 X10*3/uL (0.1-1.2); Monocytes Percent Auto 5.6 % (2-11); Neutrophils Absolute Auto 8.3 x10*3/uL (2.0-8.3); Neutrophils Percent Auto 73.6 % (45-73); Platelet Count 384 X10*3/uL (160-400); Red Blood Count 4.01 X10*6/uL (4.20-5.50); Red Cell Distribution Width 15.9 % (11.0-16.0); White Blood Count 11.3 X10*3/uL (4.8-10.8)
[2023-08-03 06:48] LABS: Anion Gap 12 (12-20); Blood Urea Nitrogen 20 mg/dL (9-16); Calcium 8.1 mg/dL (8.4-10.2); Carbon Dioxide 24 mmol/L (22-29); Chloride 107 mmol/L (96-108); Estimated Glomerular Filt Rate 60; Glucose Random 100 mg/dL (60-115); Potassium 3.6 mmol/L (3.3-5.1); Sodium 139 mmol/L (135-145)
== END 2023-08-03 06:41 | disposition home or self-care (01) ==
LOC: HO.MMNH3L 06:40
PROVIDERS: Visit Provider Family Medicine
DX: I50.20 Unspecified systolic (congestive) heart failure (principal)
CPT/HCPCS: 36415; 80048; 85025

== ENCOUNTER 2023-08-10 06:24 | Outpatient (REF) | payer MEDICARE, SELFPAY ==
[2023-08-10 06:20] LABS: MANUAL DIFF FLAG NO
[2023-08-10 07:14] LABS: Basophils Absolute Auto 0.2 X10*3/uL (0.0-0.2); Basophils Percent Auto 1.7 % (0-2); Eosinophils Absolute Auto 0.4 X10*3/uL (0.0-0.4); Eosinophils Percent Auto 3.5 % (0-4); Hematocrit 36.2 % (37.0-47.0); Hemoglobin 11.3 g/dl (12.0-16.0); Imm Gran Abs Auto 0.07 X10*3/uL (0.00-0.03); Imm Gran Pct Auto 0.6 % (0.0-0.4); Lymphocytes Absolute Auto 2.3 X10*3/uL (1.2-4.9); Lymphocytes Percent Auto 19.1 % (20-40); Mean Corpuscular HGB Conc 31.2 g/dl (31.0-35.0); Mean Corpuscular Hemoglobin 26.2 pg (27.0-33.0); Mean Corpuscular Volume 83.8 fL (80.0-98.0); Mean Platelet Volume 11.7 fL (9.4-12.3); Monocytes Absolute Auto 0.7 X10*3/uL (0.1-1.2); Monocytes Percent Auto 5.9 % (2-11); Neutrophils Absolute Auto 8.3 x10*3/uL (2.0-8.3); Neutrophils Percent Auto 69.2 % (45-73); Platelet Count 508 X10*3/uL (160-400); Red Blood Count 4.32 X10*6/uL (4.20-5.50); Red Cell Distribution Width 15.6 % (11.0-16.0)
[2023-08-10 07:20] LABS: Anion Gap 15 (12-20); Blood Urea Nitrogen 14 mg/dL (9-16); Calcium 8.4 mg/dL (8.4-10.2); Carbon Dioxide 23 mmol/L (22-29); Chloride 106 mmol/L (96-108); Estimated Glomerular Filt Rate > 60; Glucose Random 97 mg/dL (60-115); Potassium 3.5 mmol/L (3.3-5.1); Sodium 140 mmol/L (135-145)
== END 2023-08-10 06:25 | disposition home or self-care (01) ==
LOC: HO.MMNH3L 06:24
PROVIDERS: Visit Provider Family Medicine
DX: I11.0 Hypertensive heart disease with heart failure (principal); I50.20 Unspecified systolic (congestive) heart failure
CPT/HCPCS: 36415; 80048; 85025

== ENCOUNTER 2023-08-20 05:44 | Outpatient (REF) | payer MEDICARE, SELFPAY ==
[2023-08-20 05:49] LABS: MANUAL DIFF FLAG NO
[2023-08-20 06:01] LABS: Basophils Absolute Auto 0.2 X10*3/uL (0.0-0.2); Eosinophils Absolute Auto 0.5 X10*3/uL (0.0-0.4); Hematocrit 35.3 % (37.0-47.0); Hemoglobin 11.1 g/dl (12.0-16.0); Imm Gran Abs Auto 0.05 X10*3/uL (0.00-0.03); Imm Gran Pct Auto 0.4 % (0.0-0.4); Lymphocytes Absolute Auto 1.9 X10*3/uL (1.2-4.9); Lymphocytes Percent Auto 15.9 % (20-40); Mean Corpuscular HGB Conc 31.4 g/dl (31.0-35.0); Mean Corpuscular Hemoglobin 26.4 pg (27.0-33.0); Mean Platelet Volume 11.3 fL (9.4-12.3); Monocytes Absolute Auto 0.7 X10*3/uL (0.1-1.2); Neutrophils Absolute Auto 8.3 x10*3/uL (2.0-8.3); Neutrophils Percent Auto 71.7 % (45-73); Platelet Count 433 X10*3/uL (160-400); Red Cell Distribution Width 15.5 % (11.0-16.0); White Blood Count 11.6 X10*3/uL (4.8-10.8)
[2023-08-20 06:15] LABS: Anion Gap 12 (12-20); Blood Urea Nitrogen 19 mg/dL (9-16); Calcium 8.1 mg/dL (8.4-10.2); Carbon Dioxide 22 mmol/L (22-29); Chloride 109 mmol/L (96-108); Estimated Glomerular Filt Rate > 60; Glucose Random 100 mg/dL (60-115); Potassium 3.6 mmol/L (3.3-5.1); Sodium 139 mmol/L (135-145)
== END 2023-08-20 05:45 | disposition home or self-care (01) ==
LOC: HO.MMNH3L 05:44
PROVIDERS: Visit Provider Family Medicine
DX: I10 Essential (primary) hypertension (principal)
CPT/HCPCS: 36415; 80048; 85025

== ENCOUNTER 2023-09-07 10:39 | Outpatient (REF) | payer MEDICARE, SELFPAY | END 2023-09-07 10:40 | disposition home or self-care (01) | LOC: HO.MMNH3L 10:39 | PROVIDERS: Visit Provider Family Medicine | DX: Z13.89 Encounter for screening for other disorder (principal) ==

== ENCOUNTER 2023-09-14 06:05 | Outpatient (REF) | payer MEDICARE, SELFPAY ==
[2023-09-14 06:05] LABS: Mean Corpuscular Hemoglobin 26.6 pg (27.0-33.0); Monocytes Percent Auto 5.8 % (2-11); PLT CLUMP 1; Red Cell Distribution Width 15.9 % (11.0-16.0); SCAN SMEAR FLAG 1
[2023-09-14 06:07] LABS: Basophils Absolute Auto 0.2 X10*3/uL (0.0-0.2); Basophils Percent Auto 1.7 % (0-2); Eosinophils Absolute Auto 0.3 X10*3/uL (0.0-0.4); Eosinophils Percent Auto 2.7 % (0-4); Hematocrit 34.7 % (37.0-47.0); Hemoglobin 11.1 g/dl (12.0-16.0); Imm Gran Abs Auto 0.05 X10*3/uL (0.00-0.03); Imm Gran Pct Auto 0.4 % (0.0-0.4); Lymphocytes Absolute Auto 1.8 X10*3/uL (1.2-4.9); Lymphocytes Percent Auto 15.8 % (20-40); Mean Platelet Volume 11.5 fL (9.4-12.3); Monocytes Absolute Auto 0.7 X10*3/uL (0.1-1.2); Neutrophils Absolute Auto 8.6 x10*3/uL (2.0-8.3); Neutrophils Percent Auto 73.6 % (45-73); Red Blood Count 4.18 X10*6/uL (4.20-5.50)
[2023-09-14 06:08] LABS: MANUAL DIFF FLAG NO; Platelet Count 416 X10*3/uL (160-400); White Blood Count 11.7 X10*3/uL (4.8-10.8)
[2023-09-14 06:24] LABS: Anion Gap 11 (12-20); Blood Urea Nitrogen 16 mg/dL (9-16); Calcium 7.8 mg/dL (8.4-10.2); Carbon Dioxide 24 mmol/L (22-29); Chloride 105 mmol/L (96-108); Estimated Glomerular Filt Rate > 60; Glucose Random 99 mg/dL (60-115); Potassium 3.1 mmol/L (3.3-5.1); Sodium 137 mmol/L (135-145)
== END 2023-09-14 06:06 | disposition home or self-care (01) ==
LOC: HO.MMNH3L 06:05
PROVIDERS: Visit Provider Family Medicine
DX: I10 Essential (primary) hypertension (principal); E78.5 Hyperlipidemia, unspecified; J44.9 Chronic obstructive pulmonary disease, unspecified
CPT/HCPCS: 36415; 80048; 85025

== ENCOUNTER 2023-10-05 06:10 | Outpatient (REF) | payer MEDICARE, SELFPAY ==
[2023-10-05 06:15] LABS: MANUAL DIFF FLAG NO
[2023-10-05 07:03] LABS: Basophils Absolute Auto 0.2 X10*3/uL (0.0-0.2); Basophils Percent Auto 1.6 % (0-2); Eosinophils Absolute Auto 0.5 X10*3/uL (0.0-0.4); Eosinophils Percent Auto 3.7 % (0-4); Hemoglobin 11.6 g/dl (12.0-16.0); Imm Gran Abs Auto 0.05 X10*3/uL (0.00-0.03); Imm Gran Pct Auto 0.4 % (0.0-0.4); Lymphocytes Absolute Auto 1.9 X10*3/uL (1.2-4.9); Lymphocytes Percent Auto 15.2 % (20-40); Mean Corpuscular HGB Conc 31.4 g/dl (31.0-35.0); Mean Corpuscular Hemoglobin 26.4 pg (27.0-33.0); Mean Corpuscular Volume 84.3 fL (80.0-98.0); Mean Platelet Volume 11.8 fL (9.4-12.3); Monocytes Absolute Auto 0.7 X10*3/uL (0.1-1.2); Monocytes Percent Auto 5.4 % (2-11); Neutrophils Percent Auto 73.7 % (45-73); Platelet Count 489 X10*3/uL (160-400); Red Blood Count 4.39 X10*6/uL (4.20-5.50); Red Cell Distribution Width 15.7 % (11.0-16.0); White Blood Count 12.2 X10*3/uL (4.8-10.8)
[2023-10-05 07:11] LABS: Anion Gap 14 (12-20); Blood Urea Nitrogen 16 mg/dL (9-16); Calcium 8.8 mg/dL (8.4-10.2); Carbon Dioxide 23 mmol/L (22-29); Chloride 109 mmol/L (96-108); Estimated Glomerular Filt Rate > 60; Glucose Random 110 mg/dL (60-115); Potassium 3.9 mmol/L (3.3-5.1); Sodium 142 mmol/L (135-145)
== END 2023-10-05 06:11 | disposition home or self-care (01) ==
LOC: HO.MMNH3L 06:10
PROVIDERS: Visit Provider Family Medicine
DX: J44.9 Chronic obstructive pulmonary disease, unspecified (principal); F41.1 Generalized anxiety disorder; R41.89 Other symptoms and signs involving cognitive functions and awareness
CPT/HCPCS: 36415; 80048; 85025

== ENCOUNTER 2023-10-12 06:35 | Outpatient (REF) | payer MEDICARE, SELFPAY ==
[2023-10-12 05:55] LABS: MANUAL DIFF FLAG NO
[2023-10-12 06:18] LABS: Anion Gap 12 (12-20); Blood Urea Nitrogen 13 mg/dL (9-16); Calcium 8.5 mg/dL (8.4-10.2); Carbon Dioxide 23 mmol/L (22-29); Chloride 109 mmol/L (96-108); Estimated Glomerular Filt Rate > 60; Glucose Random 94 mg/dL (60-115); Potassium 3.5 mmol/L (3.3-5.1); Sodium 140 mmol/L (135-145)
[2023-10-12 06:20] LABS: Basophils Absolute Auto 0.1 X10*3/uL (0.0-0.2); Basophils Percent Auto 0.7 % (0-2); Eosinophils Absolute Auto 0.2 X10*3/uL (0.0-0.4); Eosinophils Percent Auto 1.2 % (0-4); Hematocrit 34.6 % (37.0-47.0); Imm Gran Abs Auto 0.06 X10*3/uL (0.00-0.03); Imm Gran Pct Auto 0.4 % (0.0-0.4); Lymphocytes Absolute Auto 1.3 X10*3/uL (1.2-4.9); Lymphocytes Percent Auto 8.8 % (20-40); Mean Corpuscular HGB Conc 31.8 g/dl (31.0-35.0); Mean Corpuscular Hemoglobin 26.1 pg (27.0-33.0); Mean Platelet Volume 11.7 fL (9.4-12.3); Monocytes Absolute Auto 0.9 X10*3/uL (0.1-1.2); Monocytes Percent Auto 6.3 % (2-11); Neutrophils Absolute Auto 12.2 x10*3/uL (2.0-8.3); Neutrophils Percent Auto 82.6 % (45-73); Platelet Count 376 X10*3/uL (160-400); Red Blood Count 4.22 X10*6/uL (4.20-5.50); Red Cell Distribution Width 16.4 % (11.0-16.0); White Blood Count 14.7 X10*3/uL (4.8-10.8)
[2023-10-12 19:04] LABS: Influenza A PCR NEGATIVE (Negative); Influenza B PCR NEGATIVE (Negative); Resp Syncy Virus RNA Qual PCR NEGATIVE (Negative); SARS COV2 PCR INHOUSE NEGATIVE (Negative)
== END 2023-10-12 06:36 | disposition home or self-care (01) ==
LOC: HO.MMNH3L 06:35
PROVIDERS: Visit Provider Family Medicine
DX: J41.1 Mucopurulent chronic bronchitis (principal); R41.89 Other symptoms and signs involving cognitive functions and awareness
CPT/HCPCS: 0241U; 36415; 80048; 85025

== ENCOUNTER 2023-10-19 06:11 | Outpatient (REF) | payer MEDICARE, SELFPAY ==
[2023-10-19 06:05] LABS: MANUAL DIFF FLAG NO
[2023-10-19 06:53] LABS: Basophils Absolute Auto 0.2 X10*3/uL (0.0-0.2); Basophils Percent Auto 1.8 % (0-2); Eosinophils Absolute Auto 0.5 X10*3/uL (0.0-0.4); Eosinophils Percent Auto 4.3 % (0-4); Hematocrit 34.3 % (37.0-47.0); Hemoglobin 10.8 g/dl (12.0-16.0); Imm Gran Abs Auto 0.04 X10*3/uL (0.00-0.03); Imm Gran Pct Auto 0.4 % (0.0-0.4); Lymphocytes Absolute Auto 2.1 X10*3/uL (1.2-4.9); Mean Corpuscular HGB Conc 31.5 g/dl (31.0-35.0); Mean Corpuscular Hemoglobin 25.9 pg (27.0-33.0); Mean Corpuscular Volume 82.3 fL (80.0-98.0); Mean Platelet Volume 11.2 fL (9.4-12.3); Monocytes Absolute Auto 0.5 X10*3/uL (0.1-1.2); Monocytes Percent Auto 4.4 % (2-11); Neutrophils Absolute Auto 7.4 x10*3/uL (2.0-8.3); Neutrophils Percent Auto 69.1 % (45-73); Platelet Count 531 X10*3/uL (160-400); Red Blood Count 4.17 X10*6/uL (4.20-5.50); Red Cell Distribution Width 15.6 % (11.0-16.0); White Blood Count 10.6 X10*3/uL (4.8-10.8)
[2023-10-19 07:31] LABS: Anion Gap 10 (12-20); Blood Urea Nitrogen 11 mg/dL (9-16); Calcium 8.4 mg/dL (8.4-10.2); Carbon Dioxide 25 mmol/L (22-29); Chloride 110 mmol/L (96-108); Estimated Glomerular Filt Rate > 60; Glucose Random 92 mg/dL (60-115); Potassium 3.8 mmol/L (3.3-5.1); Sodium 141 mmol/L (135-145)
== END 2023-10-19 06:12 | disposition home or self-care (01) ==
LOC: HO.MMNH3L 06:11
PROVIDERS: Visit Provider Family Medicine
DX: J44.9 Chronic obstructive pulmonary disease, unspecified (principal); F41.1 Generalized anxiety disorder; R41.89 Other symptoms and signs involving cognitive functions and awareness
CPT/HCPCS: 36415; 80048; 85025

== ENCOUNTER 2023-10-26 05:46 | Outpatient (REF) | payer MEDICARE, SELFPAY ==
[2023-10-26 05:47] LABS: Eosinophils Absolute Auto 0.3 X10*3/uL (0.0-0.4); Monocytes Absolute Auto 0.9 X10*3/uL (0.1-1.2); PLT CLUMP 1; SCAN SMEAR FLAG 1
[2023-10-26 05:49] LABS: Basophils Absolute Auto 0.2 X10*3/uL (0.0-0.2); Basophils Percent Auto 1.5 % (0-2); Hematocrit 34.8 % (37.0-47.0); Hemoglobin 11.1 g/dl (12.0-16.0); Imm Gran Pct Auto 0.7 % (0.0-0.4); Lymphocytes Absolute Auto 2.2 X10*3/uL (1.2-4.9); Lymphocytes Percent Auto 14.4 % (20-40); Mean Corpuscular HGB Conc 31.9 g/dl (31.0-35.0); Mean Corpuscular Hemoglobin 26.1 pg (27.0-33.0); Mean Corpuscular Volume 81.9 fL (80.0-98.0); Mean Platelet Volume 11.2 fL (9.4-12.3); Monocytes Percent Auto 5.8 % (2-11); Neutrophils Absolute Auto 11.4 x10*3/uL (2.0-8.3); Neutrophils Percent Auto 75.6 % (45-73); Red Blood Count 4.25 X10*6/uL (4.20-5.50); Red Cell Distribution Width 15.9 % (11.0-16.0)
[2023-10-26 05:50] LABS: MANUAL DIFF FLAG NO; Platelet Count 467 X10*3/uL (160-400); White Blood Count 15.3 X10*3/uL (4.8-10.8)
[2023-10-26 06:21] LABS: Anion Gap 13 (12-20); Blood Urea Nitrogen 17 mg/dL (9-16); Calcium 8.8 mg/dL (8.4-10.2); Carbon Dioxide 21 mmol/L (22-29); Chloride 108 mmol/L (96-108); Estimated Glomerular Filt Rate > 60; Glucose Random 118 mg/dL (60-115); Potassium 3.6 mmol/L (3.3-5.1); Sodium 138 mmol/L (135-145)
== END 2023-10-26 05:47 | disposition home or self-care (01) ==
LOC: HO.MMNH3L 05:46
PROVIDERS: Visit Provider Family Medicine
DX: J44.9 Chronic obstructive pulmonary disease, unspecified (principal); F41.1 Generalized anxiety disorder; R41.89 Other symptoms and signs involving cognitive functions and awareness
CPT/HCPCS: 36415; 80048; 85025

== ENCOUNTER 2023-11-02 06:05 | Outpatient (REF) | payer MEDICARE, SELFPAY ==
[2023-11-02 05:45] LABS: MANUAL DIFF FLAG NO
[2023-11-02 06:18] LABS: Basophils Absolute Auto 0.2 X10*3/uL (0.0-0.2); Basophils Percent Auto 2.1 % (0-2); Eosinophils Absolute Auto 0.5 X10*3/uL (0.0-0.4); Eosinophils Percent Auto 5.1 % (0-4); Hematocrit 34.6 % (37.0-47.0); Hemoglobin 10.6 g/dl (12.0-16.0); Imm Gran Abs Auto 0.04 X10*3/uL (0.00-0.03); Imm Gran Pct Auto 0.4 % (0.0-0.4); Lymphocytes Absolute Auto 1.9 X10*3/uL (1.2-4.9); Lymphocytes Percent Auto 18.2 % (20-40); Mean Corpuscular HGB Conc 30.6 g/dl (31.0-35.0); Mean Corpuscular Hemoglobin 25.4 pg (27.0-33.0); Monocytes Absolute Auto 0.6 X10*3/uL (0.1-1.2); Monocytes Percent Auto 6.1 % (2-11); Neutrophils Absolute Auto 7.2 x10*3/uL (2.0-8.3); Neutrophils Percent Auto 68.1 % (45-73); Platelet Count 409 X10*3/uL (160-400); Red Blood Count 4.17 X10*6/uL (4.20-5.50); Red Cell Distribution Width 16.2 % (11.0-16.0); White Blood Count 10.5 X10*3/uL (4.8-10.8)
[2023-11-02 06:40] LABS: Anion Gap 10 (12-20); Blood Urea Nitrogen 13 mg/dL (9-16); Calcium 8.3 mg/dL (8.4-10.2); Carbon Dioxide 22 mmol/L (22-29); Chloride 111 mmol/L (96-108); Estimated Glomerular Filt Rate > 60; Glucose Random 105 mg/dL (60-115); Potassium 3.8 mmol/L (3.3-5.1); Sodium 139 mmol/L (135-145)
== END 2023-11-02 06:06 | disposition home or self-care (01) ==
LOC: HO.MMNH3L 06:05
PROVIDERS: Visit Provider Family Medicine
DX: J44.9 Chronic obstructive pulmonary disease, unspecified (principal); F41.1 Generalized anxiety disorder; R41.89 Other symptoms and signs involving cognitive functions and awareness
CPT/HCPCS: 36415; 80048; 85025

== ENCOUNTER 2023-11-09 06:22 | Outpatient (REF) | payer MEDICARE, SELFPAY ==
[2023-11-09 05:48] LABS: MANUAL DIFF FLAG NO
[2023-11-09 06:32] LABS: Basophils Absolute Auto 0.2 X10*3/uL (0.0-0.2); Basophils Percent Auto 1.5 % (0-2); Eosinophils Absolute Auto 0.4 X10*3/uL (0.0-0.4); Eosinophils Percent Auto 3.1 % (0-4); Hematocrit 34.1 % (37.0-47.0); Hemoglobin 10.5 g/dl (12.0-16.0); Imm Gran Abs Auto 0.04 X10*3/uL (0.00-0.03); Imm Gran Pct Auto 0.4 % (0.0-0.4); Lymphocytes Absolute Auto 1.8 X10*3/uL (1.2-4.9); Lymphocytes Percent Auto 15.5 % (20-40); Mean Corpuscular HGB Conc 30.8 g/dl (31.0-35.0); Mean Corpuscular Hemoglobin 25.5 pg (27.0-33.0); Mean Corpuscular Volume 82.8 fL (80.0-98.0); Mean Platelet Volume 11.9 fL (9.4-12.3); Monocytes Absolute Auto 0.7 X10*3/uL (0.1-1.2); Monocytes Percent Auto 5.7 % (2-11); Neutrophils Absolute Auto 8.4 x10*3/uL (2.0-8.3); Neutrophils Percent Auto 73.8 % (45-73); Platelet Count 356 X10*3/uL (160-400); Red Blood Count 4.12 X10*6/uL (4.20-5.50); White Blood Count 11.4 X10*3/uL (4.8-10.8)
[2023-11-09 06:58] LABS: Anion Gap 13 (12-20); Blood Urea Nitrogen 18 mg/dL (9-16); Calcium 8.6 mg/dL (8.4-10.2); Carbon Dioxide 23 mmol/L (22-29); Chloride 108 mmol/L (96-108); Estimated Glomerular Filt Rate > 60; Glucose Random 115 mg/dL (60-115); Potassium 3.6 mmol/L (3.3-5.1); Sodium 140 mmol/L (135-145)
== END 2023-11-09 06:23 | disposition home or self-care (01) ==
LOC: HO.MMNH3L 06:22
PROVIDERS: Visit Provider Family Medicine
DX: J44.9 Chronic obstructive pulmonary disease, unspecified (principal); F41.1 Generalized anxiety disorder; R41.89 Other symptoms and signs involving cognitive functions and awareness
CPT/HCPCS: 36415; 80048; 85025

== ENCOUNTER 2023-11-16 06:31 | Outpatient (REF) | payer MEDICARE, SELFPAY ==
[2023-11-16 06:15] LABS: MANUAL DIFF FLAG NO
[2023-11-16 07:18] LABS: Basophils Absolute Auto 0.1 X10*3/uL (0.0-0.2); Eosinophils Absolute Auto 0.3 X10*3/uL (0.0-0.4); Eosinophils Percent Auto 2.8 % (0-4); Hematocrit 34.4 % (37.0-47.0); Hemoglobin 10.8 g/dl (12.0-16.0); Imm Gran Abs Auto 0.03 X10*3/uL (0.00-0.03); Imm Gran Pct Auto 0.3 % (0.0-0.4); Lymphocytes Absolute Auto 1.7 X10*3/uL (1.2-4.9); Mean Corpuscular HGB Conc 31.4 g/dl (31.0-35.0); Mean Corpuscular Hemoglobin 25.7 pg (27.0-33.0); Mean Corpuscular Volume 81.7 fL (80.0-98.0); Mean Platelet Volume 12.2 fL (9.4-12.3); Monocytes Absolute Auto 0.5 X10*3/uL (0.1-1.2); Monocytes Percent Auto 4.6 % (2-11); Neutrophils Absolute Auto 7.4 x10*3/uL (2.0-8.3); Neutrophils Percent Auto 74.3 % (45-73); Platelet Count 366 X10*3/uL (160-400); Red Blood Count 4.21 X10*6/uL (4.20-5.50); Red Cell Distribution Width 15.8 % (11.0-16.0)
[2023-11-16 07:20] LABS: Anion Gap 16 (12-20); Blood Urea Nitrogen 13 mg/dL (9-16); Carbon Dioxide 21 mmol/L (22-29); Chloride 107 mmol/L (96-108); Estimated Glomerular Filt Rate > 60; Glucose Random 115 mg/dL (60-115); Potassium 3.7 mmol/L (3.3-5.1); Sodium 140 mmol/L (135-145)
== END 2023-11-16 06:32 | disposition home or self-care (01) ==
LOC: HO.MMNH3L 06:31
PROVIDERS: Visit Provider Family Medicine
DX: J44.9 Chronic obstructive pulmonary disease, unspecified (principal); F41.1 Generalized anxiety disorder; R41.89 Other symptoms and signs involving cognitive functions and awareness
CPT/HCPCS: 36415; 80048; 85025

== ENCOUNTER 2023-11-23 06:14 | Outpatient (REF) | payer MEDICARE, SELFPAY ==
[2023-11-23 06:11] LABS: MANUAL DIFF FLAG NO
[2023-11-23 07:05] LABS: Basophils Absolute Auto 0.2 X10*3/uL (0.0-0.2); Basophils Percent Auto 1.9 % (0-2); Eosinophils Absolute Auto 0.3 X10*3/uL (0.0-0.4); Hematocrit 34.5 % (37.0-47.0); Hemoglobin 10.9 g/dl (12.0-16.0); Imm Gran Abs Auto 0.03 X10*3/uL (0.00-0.03); Imm Gran Pct Auto 0.3 % (0.0-0.4); Lymphocytes Absolute Auto 1.7 X10*3/uL (1.2-4.9); Lymphocytes Percent Auto 17.3 % (20-40); Mean Corpuscular HGB Conc 31.6 g/dl (31.0-35.0); Mean Corpuscular Hemoglobin 25.7 pg (27.0-33.0); Mean Corpuscular Volume 81.4 fL (80.0-98.0); Mean Platelet Volume 12.2 fL (9.4-12.3); Monocytes Absolute Auto 0.5 X10*3/uL (0.1-1.2); Monocytes Percent Auto 5.2 % (2-11); Neutrophils Absolute Auto 7.3 x10*3/uL (2.0-8.3); Neutrophils Percent Auto 72.3 % (45-73); Platelet Count 392 X10*3/uL (160-400); Red Blood Count 4.24 X10*6/uL (4.20-5.50); Red Cell Distribution Width 15.4 % (11.0-16.0); White Blood Count 10.1 X10*3/uL (4.8-10.8)
[2023-11-23 07:36] LABS: Anion Gap 15 (12-20); Blood Urea Nitrogen 24 mg/dL (9-16); Calcium 8.7 mg/dL (8.4-10.2); Carbon Dioxide 22 mmol/L (22-29); Chloride 108 mmol/L (96-108); Estimated Glomerular Filt Rate > 60; Glucose Random 114 mg/dL (60-115); Potassium 3.6 mmol/L (3.3-5.1); Sodium 141 mmol/L (135-145)
== END 2023-11-23 06:15 | disposition home or self-care (01) ==
LOC: HO.MMNH3L 06:14
PROVIDERS: Visit Provider Family Medicine
DX: J44.9 Chronic obstructive pulmonary disease, unspecified (principal); F41.1 Generalized anxiety disorder; R41.89 Other symptoms and signs involving cognitive functions and awareness
CPT/HCPCS: 36415; 80048; 85025

== ENCOUNTER 2023-11-30 05:55 | Outpatient (REF) | payer MEDICARE, SELFPAY ==
[2023-11-30 05:44] LABS: MANUAL DIFF FLAG NO
[2023-11-30 06:22] LABS: Basophils Absolute Auto 0.2 X10*3/uL (0.0-0.2); Basophils Percent Auto 1.8 % (0-2); Eosinophils Absolute Auto 0.3 X10*3/uL (0.0-0.4); Eosinophils Percent Auto 3.5 % (0-4); Hematocrit 35.7 % (37.0-47.0); Imm Gran Abs Auto 0.03 X10*3/uL (0.00-0.03); Imm Gran Pct Auto 0.3 % (0.0-0.4); Lymphocytes Absolute Auto 1.6 X10*3/uL (1.2-4.9); Lymphocytes Percent Auto 18.4 % (20-40); Mean Corpuscular HGB Conc 30.8 g/dl (31.0-35.0); Mean Corpuscular Hemoglobin 25.2 pg (27.0-33.0); Mean Corpuscular Volume 81.7 fL (80.0-98.0); Mean Platelet Volume 12.4 fL (9.4-12.3); Monocytes Absolute Auto 0.5 X10*3/uL (0.1-1.2); Monocytes Percent Auto 5.2 % (2-11); Neutrophils Absolute Auto 6.2 x10*3/uL (2.0-8.3); Neutrophils Percent Auto 70.8 % (45-73); Platelet Count 349 X10*3/uL (160-400); Red Blood Count 4.37 X10*6/uL (4.20-5.50); Red Cell Distribution Width 15.3 % (11.0-16.0); White Blood Count 8.8 X10*3/uL (4.8-10.8)
[2023-11-30 06:38] LABS: Anion Gap 18 (12-20); Blood Urea Nitrogen 17 mg/dL (9-16); Calcium 8.4 mg/dL (8.4-10.2); Carbon Dioxide 16 mmol/L (22-29); Chloride 110 mmol/L (96-108); Estimated Glomerular Filt Rate > 60; Glucose Random 110 mg/dL (60-115); Potassium 3.9 mmol/L (3.3-5.1); Sodium 140 mmol/L (135-145)
== END 2023-11-30 05:56 | disposition home or self-care (01) ==
LOC: HO.MMNH3L 05:55
PROVIDERS: Visit Provider Family Medicine
DX: J44.9 Chronic obstructive pulmonary disease, unspecified (principal); F41.1 Generalized anxiety disorder; R41.89 Other symptoms and signs involving cognitive functions and awareness
CPT/HCPCS: 36415; 80048; 85025

== ENCOUNTER 2023-12-08 06:00 | Outpatient (REF) | payer MEDICARE, SELFPAY ==
[2023-12-08 05:49] LABS: MANUAL DIFF FLAG NO
[2023-12-08 06:33] LABS: Basophils Absolute Auto 0.1 X10*3/uL (0.0-0.2); Basophils Percent Auto 1.6 % (0-2); Eosinophils Absolute Auto 0.2 X10*3/uL (0.0-0.4); Eosinophils Percent Auto 2.6 % (0-4); Hematocrit 33.2 % (37.0-47.0); Hemoglobin 10.2 g/dl (12.0-16.0); Imm Gran Abs Auto 0.04 X10*3/uL (0.00-0.03); Imm Gran Pct Auto 0.4 % (0.0-0.4); Lymphocytes Absolute Auto 1.4 X10*3/uL (1.2-4.9); Lymphocytes Percent Auto 15.8 % (20-40); Mean Corpuscular HGB Conc 30.7 g/dl (31.0-35.0); Mean Corpuscular Hemoglobin 24.9 pg (27.0-33.0); Mean Corpuscular Volume 81.2 fL (80.0-98.0); Monocytes Absolute Auto 0.4 X10*3/uL (0.1-1.2); Monocytes Percent Auto 4.5 % (2-11); Neutrophils Absolute Auto 6.7 x10*3/uL (2.0-8.3); Neutrophils Percent Auto 75.1 % (45-73); Platelet Count 321 X10*3/uL (160-400); Red Blood Count 4.09 X10*6/uL (4.20-5.50); Red Cell Distribution Width 15.7 % (11.0-16.0); White Blood Count 8.9 X10*3/uL (4.8-10.8)
[2023-12-08 07:01] LABS: Anion Gap 11 (12-20); Blood Urea Nitrogen 17 mg/dL (9-16); Calcium 8.4 mg/dL (8.4-10.2); Carbon Dioxide 22 mmol/L (22-29); Chloride 110 mmol/L (96-108); Estimated Glomerular Filt Rate > 60; Glucose Random 121 mg/dL (60-115); Sodium 139 mmol/L (135-145)
== END 2023-12-08 06:01 | disposition home or self-care (01) ==
LOC: HO.MMNH3L 06:00
PROVIDERS: Visit Provider Family Medicine
DX: J44.9 Chronic obstructive pulmonary disease, unspecified (principal); F41.1 Generalized anxiety disorder; R41.89 Other symptoms and signs involving cognitive functions and awareness
CPT/HCPCS: 36415; 80048; 85025

== ENCOUNTER 2023-12-14 06:01 | Outpatient (REF) | payer MEDICARE, SELFPAY ==
[2023-12-14 05:49] LABS: MANUAL DIFF FLAG NO
[2023-12-14 06:53] LABS: Basophils Absolute Auto 0.1 X10*3/uL (0.0-0.2); Basophils Percent Auto 1.1 % (0-2); Eosinophils Absolute Auto 0.2 X10*3/uL (0.0-0.4); Hematocrit 34.7 % (37.0-47.0); Hemoglobin 10.9 g/dl (12.0-16.0); Imm Gran Abs Auto 0.04 X10*3/uL (0.00-0.03); Imm Gran Pct Auto 0.4 % (0.0-0.4); Lymphocytes Absolute Auto 1.4 X10*3/uL (1.2-4.9); Lymphocytes Percent Auto 14.7 % (20-40); Mean Corpuscular HGB Conc 31.4 g/dl (31.0-35.0); Mean Corpuscular Hemoglobin 24.8 pg (27.0-33.0); Mean Corpuscular Volume 78.9 fL (80.0-98.0); Monocytes Absolute Auto 0.4 X10*3/uL (0.1-1.2); Monocytes Percent Auto 3.8 % (2-11); Neutrophils Absolute Auto 7.2 x10*3/uL (2.0-8.3); Platelet Count 319 X10*3/uL (160-400); Red Cell Distribution Width 15.8 % (11.0-16.0); White Blood Count 9.2 X10*3/uL (4.8-10.8)
[2023-12-14 07:01] LABS: Anion Gap 14 (12-20); Blood Urea Nitrogen 17 mg/dL (9-16); Calcium 8.7 mg/dL (8.4-10.2); Carbon Dioxide 21 mmol/L (22-29); Chloride 109 mmol/L (96-108); Estimated Glomerular Filt Rate > 60; Glucose Random 119 mg/dL (60-115); Potassium 3.5 mmol/L (3.3-5.1); Sodium 140 mmol/L (135-145)
== END 2023-12-14 06:02 | disposition home or self-care (01) ==
LOC: HO.MMNH3L 06:01
PROVIDERS: Visit Provider Family Medicine
DX: J44.9 Chronic obstructive pulmonary disease, unspecified (principal); F41.1 Generalized anxiety disorder; R41.89 Other symptoms and signs involving cognitive functions and awareness
CPT/HCPCS: 36415; 80048; 85025

== ENCOUNTER 2023-12-21 05:59 | Outpatient (REF) | payer MEDICARE, SELFPAY ==
[2023-12-21 05:41] LABS: MANUAL DIFF FLAG NO
[2023-12-21 06:07] LABS: Basophils Absolute Auto 0.1 X10*3/uL (0.0-0.2); Basophils Percent Auto 1.5 % (0-2); Eosinophils Absolute Auto 0.2 X10*3/uL (0.0-0.4); Eosinophils Percent Auto 2.4 % (0-4); Hematocrit 34.3 % (37.0-47.0); Hemoglobin 10.8 g/dl (12.0-16.0); Imm Gran Abs Auto 0.03 X10*3/uL (0.00-0.03); Imm Gran Pct Auto 0.4 % (0.0-0.4); Lymphocytes Absolute Auto 1.5 X10*3/uL (1.2-4.9); Lymphocytes Percent Auto 19.3 % (20-40); Mean Corpuscular HGB Conc 31.5 g/dl (31.0-35.0); Mean Corpuscular Hemoglobin 24.7 pg (27.0-33.0); Mean Corpuscular Volume 78.3 fL (80.0-98.0); Mean Platelet Volume 12.1 fL (9.4-12.3); Monocytes Absolute Auto 0.4 X10*3/uL (0.1-1.2); Monocytes Percent Auto 4.9 % (2-11); Neutrophils Absolute Auto 5.4 x10*3/uL (2.0-8.3); Neutrophils Percent Auto 71.5 % (45-73); Platelet Count 314 X10*3/uL (160-400); Red Blood Count 4.38 X10*6/uL (4.20-5.50); Red Cell Distribution Width 15.8 % (11.0-16.0); White Blood Count 7.5 X10*3/uL (4.8-10.8)
[2023-12-21 06:22] LABS: Anion Gap 11 (12-20); Blood Urea Nitrogen 20 mg/dL (9-16); Calcium 8.7 mg/dL (8.4-10.2); Carbon Dioxide 24 mmol/L (22-29); Chloride 109 mmol/L (96-108); Estimated Glomerular Filt Rate > 60; Glucose Random 110 mg/dL (60-115); Potassium 3.5 mmol/L (3.3-5.1); Sodium 140 mmol/L (135-145)
== END 2023-12-21 06:00 | disposition home or self-care (01) ==
LOC: HO.MMNH3L 05:59
PROVIDERS: Visit Provider Hospitalist
DX: J44.9 Chronic obstructive pulmonary disease, unspecified (principal); F41.1 Generalized anxiety disorder; R41.89 Other symptoms and signs involving cognitive functions and awareness
CPT/HCPCS: 36415; 80048; 85025

== ENCOUNTER 2023-12-28 06:15 | Outpatient (REF) | payer MEDICARE, SELFPAY ==
[2023-12-28 05:47] LABS: MANUAL DIFF FLAG NO
[2023-12-28 06:24] LABS: Basophils Absolute Auto 0.2 X10*3/uL (0.0-0.2); Eosinophils Absolute Auto 0.2 X10*3/uL (0.0-0.4); Hematocrit 32.3 % (37.0-47.0); Hemoglobin 10.1 g/dl (12.0-16.0); Imm Gran Abs Auto 0.03 X10*3/uL (0.00-0.03); Imm Gran Pct Auto 0.4 % (0.0-0.4); Lymphocytes Absolute Auto 1.6 X10*3/uL (1.2-4.9); Lymphocytes Percent Auto 21.2 % (20-40); Mean Corpuscular HGB Conc 31.3 g/dl (31.0-35.0); Mean Corpuscular Hemoglobin 24.5 pg (27.0-33.0); Mean Corpuscular Volume 78.2 fL (80.0-98.0); Mean Platelet Volume 11.8 fL (9.4-12.3); Monocytes Absolute Auto 0.5 X10*3/uL (0.1-1.2); Monocytes Percent Auto 6.2 % (2-11); Neutrophils Percent Auto 67.2 % (45-73); Platelet Count 257 X10*3/uL (160-400); Red Blood Count 4.13 X10*6/uL (4.20-5.50); Red Cell Distribution Width 15.9 % (11.0-16.0); White Blood Count 7.4 X10*3/uL (4.8-10.8)
[2023-12-28 06:45] LABS: Anion Gap 10 (12-20); Blood Urea Nitrogen 16 mg/dL (9-16); Calcium 8.8 mg/dL (8.4-10.2); Carbon Dioxide 24 mmol/L (22-29); Chloride 110 mmol/L (96-108); Estimated Glomerular Filt Rate > 60; Glucose Random 94 mg/dL (60-115); Potassium 3.8 mmol/L (3.3-5.1); Sodium 140 mmol/L (135-145)
== END 2023-12-28 06:16 | disposition home or self-care (01) ==
LOC: HO.MMNH3L 06:15
PROVIDERS: Visit Provider Hospitalist
DX: J44.9 Chronic obstructive pulmonary disease, unspecified (principal); F41.1 Generalized anxiety disorder; R41.89 Other symptoms and signs involving cognitive functions and awareness
CPT/HCPCS: 36415; 80048; 85025

== ENCOUNTER 2024-01-04 05:50 | Outpatient (REF) | payer MEDICARE, SELFPAY ==
[2024-01-04 05:33] LABS: MANUAL DIFF FLAG NO
[2024-01-04 05:52] LABS: Basophils Absolute Auto 0.1 X10*3/uL (0.0-0.2); Basophils Percent Auto 1.4 % (0-2); Eosinophils Absolute Auto 0.1 X10*3/uL (0.0-0.4); Eosinophils Percent Auto 1.8 % (0-4); Hematocrit 34.6 % (37.0-47.0); Hemoglobin 10.7 g/dl (12.0-16.0); Imm Gran Abs Auto 0.03 X10*3/uL (0.00-0.03); Imm Gran Pct Auto 0.4 % (0.0-0.4); Lymphocytes Absolute Auto 1.8 X10*3/uL (1.2-4.9); Lymphocytes Percent Auto 23.8 % (20-40); Mean Corpuscular HGB Conc 30.9 g/dl (31.0-35.0); Mean Corpuscular Hemoglobin 24.2 pg (27.0-33.0); Mean Corpuscular Volume 78.1 fL (80.0-98.0); Mean Platelet Volume 11.6 fL (9.4-12.3); Monocytes Absolute Auto 0.4 X10*3/uL (0.1-1.2); Monocytes Percent Auto 4.7 % (2-11); Neutrophils Absolute Auto 5.2 x10*3/uL (2.0-8.3); Neutrophils Percent Auto 67.9 % (45-73); Platelet Count 223 X10*3/uL (160-400); Red Blood Count 4.43 X10*6/uL (4.20-5.50); Red Cell Distribution Width 15.9 % (11.0-16.0); White Blood Count 7.7 X10*3/uL (4.8-10.8)
[2024-01-04 06:13] LABS: Anion Gap 18 (12-20); Blood Urea Nitrogen 13 mg/dL (9-16); Calcium 8.5 mg/dL (8.4-10.2); Carbon Dioxide 20 mmol/L (22-29); Chloride 109 mmol/L (96-108); Estimated Glomerular Filt Rate > 60; Glucose Random 95 mg/dL (60-115); Potassium 3.4 mmol/L (3.3-5.1); Sodium 144 mmol/L (135-145)
== END 2024-01-04 05:51 | disposition home or self-care (01) ==
LOC: HO.MMNH3L 05:50
PROVIDERS: Visit Provider Family Medicine
DX: J44.9 Chronic obstructive pulmonary disease, unspecified (principal); F41.1 Generalized anxiety disorder; R41.89 Other symptoms and signs involving cognitive functions and awareness
CPT/HCPCS: 36415; 80048; 85025

== ENCOUNTER 2024-01-11 07:18 | Outpatient (REF) | payer MEDICARE, SELFPAY ==
[2024-01-11 06:23] LABS: MANUAL DIFF FLAG NO
[2024-01-11 07:08] LABS: Basophils Absolute Auto 0.1 X10*3/uL (0.0-0.2); Basophils Percent Auto 1.2 % (0-2); Eosinophils Absolute Auto 0.1 X10*3/uL (0.0-0.4); Eosinophils Percent Auto 1.9 % (0-4); Hematocrit 35.3 % (37.0-47.0); Hemoglobin 10.6 g/dl (12.0-16.0); Imm Gran Abs Auto 0.02 X10*3/uL (0.00-0.03); Imm Gran Pct Auto 0.3 % (0.0-0.4); Lymphocytes Absolute Auto 1.3 X10*3/uL (1.2-4.9); Lymphocytes Percent Auto 19.7 % (20-40); Mean Corpuscular Hemoglobin 23.5 pg (27.0-33.0); Mean Corpuscular Volume 78.3 fL (80.0-98.0); Mean Platelet Volume 11.5 fL (9.4-12.3); Monocytes Absolute Auto 0.4 X10*3/uL (0.1-1.2); Monocytes Percent Auto 5.7 % (2-11); Neutrophils Absolute Auto 4.6 x10*3/uL (2.0-8.3); Neutrophils Percent Auto 71.2 % (45-73); Platelet Count 216 X10*3/uL (160-400); Red Blood Count 4.51 X10*6/uL (4.20-5.50); Red Cell Distribution Width 15.9 % (11.0-16.0); White Blood Count 6.5 X10*3/uL (4.8-10.8)
[2024-01-11 07:34] LABS: Anion Gap 13 (12-20); Blood Urea Nitrogen 12 mg/dL (9-16); Calcium 8.8 mg/dL (8.4-10.2); Carbon Dioxide 21 mmol/L (22-29); Chloride 110 mmol/L (96-108); Estimated Glomerular Filt Rate > 60; Glucose Random 105 mg/dL (60-115); Potassium 3.5 mmol/L (3.3-5.1); Sodium 140 mmol/L (135-145)
== END 2024-01-11 07:19 | disposition home or self-care (01) ==
LOC: HO.MMNH3L 07:18
PROVIDERS: Visit Provider Family Medicine
DX: J44.9 Chronic obstructive pulmonary disease, unspecified (principal); F41.1 Generalized anxiety disorder; R41.89 Other symptoms and signs involving cognitive functions and awareness
CPT/HCPCS: 36415; 80048; 85025

== ENCOUNTER 2024-01-18 05:51 | Outpatient (REF) | payer MEDICARE, SELFPAY ==
[2024-01-18 05:32] LABS: MANUAL DIFF FLAG NO
[2024-01-18 06:03] LABS: Basophils Absolute Auto 0.1 X10*3/uL (0.0-0.2); Basophils Percent Auto 1.4 % (0-2); Eosinophils Absolute Auto 0.1 X10*3/uL (0.0-0.4); Eosinophils Percent Auto 2.5 % (0-4); Hematocrit 33.9 % (37.0-47.0); Hemoglobin 10.5 g/dl (12.0-16.0); Imm Gran Abs Auto 0.02 X10*3/uL (0.00-0.03); Imm Gran Pct Auto 0.4 % (0.0-0.4); Lymphocytes Absolute Auto 1.4 X10*3/uL (1.2-4.9); Lymphocytes Percent Auto 24.1 % (20-40); Mean Corpuscular Hemoglobin 24.1 pg (27.0-33.0); Mean Corpuscular Volume 77.9 fL (80.0-98.0); Mean Platelet Volume 11.2 fL (9.4-12.3); Monocytes Absolute Auto 0.3 X10*3/uL (0.1-1.2); Monocytes Percent Auto 5.1 % (2-11); Neutrophils Absolute Auto 3.8 x10*3/uL (2.0-8.3); Neutrophils Percent Auto 66.5 % (45-73); Platelet Count 210 X10*3/uL (160-400); Red Blood Count 4.35 X10*6/uL (4.20-5.50); Red Cell Distribution Width 16.2 % (11.0-16.0); White Blood Count 5.7 X10*3/uL (4.8-10.8)
[2024-01-18 06:21] LABS: Anion Gap 14 (12-20); Blood Urea Nitrogen 15 mg/dL (9-16); Calcium 8.4 mg/dL (8.4-10.2); Carbon Dioxide 21 mmol/L (22-29); Chloride 111 mmol/L (96-108); Estimated Glomerular Filt Rate > 60; Glucose Random 94 mg/dL (60-115); Potassium 3.8 mmol/L (3.3-5.1); Sodium 142 mmol/L (135-145)
== END 2024-01-18 05:52 | disposition home or self-care (01) ==
LOC: HO.MMNH3L 05:51
PROVIDERS: Visit Provider Family Medicine
DX: J44.9 Chronic obstructive pulmonary disease, unspecified (principal); F41.1 Generalized anxiety disorder; R41.89 Other symptoms and signs involving cognitive functions and awareness
CPT/HCPCS: 36415; 80048; 85025

== ENCOUNTER 2024-01-25 05:57 | Outpatient (REF) | payer MEDICARE, SELFPAY ==
[2024-01-25 05:44] LABS: MANUAL DIFF FLAG NO
[2024-01-25 06:32] LABS: Basophils Absolute Auto 0.1 X10*3/uL (0.0-0.2); Basophils Percent Auto 1.1 % (0-2); Eosinophils Absolute Auto 0.1 X10*3/uL (0.0-0.4); Hematocrit 38.8 % (37.0-47.0); Hemoglobin 11.8 g/dl (12.0-16.0); Imm Gran Abs Auto 0.02 X10*3/uL (0.00-0.03); Imm Gran Pct Auto 0.3 % (0.0-0.4); Lymphocytes Absolute Auto 1.2 X10*3/uL (1.2-4.9); Lymphocytes Percent Auto 18.7 % (20-40); Mean Corpuscular HGB Conc 30.4 g/dl (31.0-35.0); Mean Corpuscular Hemoglobin 23.6 pg (27.0-33.0); Mean Corpuscular Volume 77.4 fL (80.0-98.0); Mean Platelet Volume 11.4 fL (9.4-12.3); Monocytes Absolute Auto 0.3 X10*3/uL (0.1-1.2); Monocytes Percent Auto 4.6 % (2-11); Neutrophils Absolute Auto 4.7 x10*3/uL (2.0-8.3); Neutrophils Percent Auto 73.3 % (45-73); Platelet Count 239 X10*3/uL (160-400); Red Blood Count 5.01 X10*6/uL (4.20-5.50); Red Cell Distribution Width 16.8 % (11.0-16.0); White Blood Count 6.4 X10*3/uL (4.8-10.8)
[2024-01-25 06:37] LABS: Anion Gap 17 (12-20); Blood Urea Nitrogen 19 mg/dL (9-16); Calcium 8.6 mg/dL (8.4-10.2); Carbon Dioxide 20 mmol/L (22-29); Chloride 109 mmol/L (96-108); Estimated Glomerular Filt Rate > 60; Glucose Random 115 mg/dL (60-115); Potassium 3.8 mmol/L (3.3-5.1); Sodium 142 mmol/L (135-145)
== END 2024-01-25 05:58 | disposition home or self-care (01) ==
LOC: HO.MMNH3L 05:57
PROVIDERS: Visit Provider Family Medicine
DX: J44.9 Chronic obstructive pulmonary disease, unspecified (principal); F41.1 Generalized anxiety disorder; R41.89 Other symptoms and signs involving cognitive functions and awareness
CPT/HCPCS: 36415; 80048; 85025

== ENCOUNTER 2024-02-01 06:10 | Outpatient (REF) | payer MEDICARE, SELFPAY ==
[2024-02-01 06:01] LABS: MANUAL DIFF FLAG NO
[2024-02-01 06:50] LABS: Basophils Absolute Auto 0.1 X10*3/uL (0.0-0.2); Basophils Percent Auto 1.4 % (0-2); Eosinophils Absolute Auto 0.1 X10*3/uL (0.0-0.4); Eosinophils Percent Auto 1.6 % (0-4); Hematocrit 33.9 % (37.0-47.0); Hemoglobin 10.6 g/dl (12.0-16.0); Imm Gran Abs Auto 0.02 X10*3/uL (0.00-0.03); Imm Gran Pct Auto 0.4 % (0.0-0.4); Lymphocytes Absolute Auto 1.4 X10*3/uL (1.2-4.9); Lymphocytes Percent Auto 27.2 % (20-40); Mean Corpuscular HGB Conc 31.3 g/dl (31.0-35.0); Mean Corpuscular Hemoglobin 23.8 pg (27.0-33.0); Monocytes Absolute Auto 0.3 X10*3/uL (0.1-1.2); Monocytes Percent Auto 6.1 % (2-11); Neutrophils Absolute Auto 3.2 x10*3/uL (2.0-8.3); Neutrophils Percent Auto 63.3 % (45-73); Platelet Count 198 X10*3/uL (160-400); Red Blood Count 4.46 X10*6/uL (4.20-5.50); Red Cell Distribution Width 16.7 % (11.0-16.0); White Blood Count 5.1 X10*3/uL (4.8-10.8)
[2024-02-01 06:59] LABS: Anion Gap 15 (12-20); Blood Urea Nitrogen 14 mg/dL (9-16); Carbon Dioxide 21 mmol/L (22-29); Chloride 108 mmol/L (96-108); Estimated Glomerular Filt Rate > 60; Glucose Random 105 mg/dL (60-115); Potassium 3.5 mmol/L (3.3-5.1); Sodium 140 mmol/L (135-145)
== END 2024-02-01 06:11 | disposition home or self-care (01) ==
LOC: HO.MMNH3L 06:10
PROVIDERS: Visit Provider Family Medicine
DX: J44.9 Chronic obstructive pulmonary disease, unspecified (principal); F41.1 Generalized anxiety disorder; R41.89 Other symptoms and signs involving cognitive functions and awareness
CPT/HCPCS: 36415; 80048; 85025

== ENCOUNTER 2024-02-08 06:08 | Outpatient (REF) | payer MEDICARE, SELFPAY ==
[2024-02-08 05:44] LABS: MANUAL DIFF FLAG NO
[2024-02-08 06:17] LABS: Anion Gap 13 (12-20); Basophils Absolute Auto 0.1 X10*3/uL (0.0-0.2); Basophils Percent Auto 1.2 % (0-2); Blood Urea Nitrogen 14 mg/dL (9-16); Calcium 8.9 mg/dL (8.4-10.2); Carbon Dioxide 24 mmol/L (22-29); Chloride 109 mmol/L (96-108); Eosinophils Absolute Auto 0.1 X10*3/uL (0.0-0.4); Eosinophils Percent Auto 1.6 % (0-4); Estimated Glomerular Filt Rate 57; Glucose Random 114 mg/dL (60-115); Hematocrit 34.7 % (37.0-47.0); Hemoglobin 10.8 g/dl (12.0-16.0); Imm Gran Abs Auto 0.01 X10*3/uL (0.00-0.03); Imm Gran Pct Auto 0.2 % (0.0-0.4); Lymphocytes Absolute Auto 1.4 X10*3/uL (1.2-4.9); Lymphocytes Percent Auto 26.8 % (20-40); Mean Corpuscular HGB Conc 31.1 g/dl (31.0-35.0); Mean Corpuscular Hemoglobin 23.4 pg (27.0-33.0); Mean Corpuscular Volume 75.3 fL (80.0-98.0); Monocytes Absolute Auto 0.3 X10*3/uL (0.1-1.2); Neutrophils Absolute Auto 3.2 x10*3/uL (2.0-8.3); Neutrophils Percent Auto 64.2 % (45-73); Platelet Count 198 X10*3/uL (160-400); Potassium 3.5 mmol/L (3.3-5.1); Red Blood Count 4.61 X10*6/uL (4.20-5.50); Red Cell Distribution Width 17.2 % (11.0-16.0); Sodium 142 mmol/L (135-145)
== END 2024-02-08 06:09 | disposition home or self-care (01) ==
LOC: HO.MMNH3L 06:08
PROVIDERS: Visit Provider Family Medicine
DX: J44.9 Chronic obstructive pulmonary disease, unspecified (principal); F41.1 Generalized anxiety disorder; R41.89 Other symptoms and signs involving cognitive functions and awareness
CPT/HCPCS: 36415; 80048; 85025

== ENCOUNTER 2024-02-15 06:42 | Outpatient (REF) | payer MEDICARE, SELFPAY ==
[2024-02-15 06:02] LABS: MANUAL DIFF FLAG NO
[2024-02-15 06:53] LABS: Anion Gap 11 (12-20); Blood Urea Nitrogen 15 mg/dL (9-16); Calcium 8.1 mg/dL (8.4-10.2); Carbon Dioxide 21 mmol/L (22-29); Chloride 110 mmol/L (96-108); Estimated Glomerular Filt Rate > 60; Glucose Random 108 mg/dL (60-115); Potassium 3.3 mmol/L (3.3-5.1); Sodium 139 mmol/L (135-145)
[2024-02-15 07:05] LABS: Basophils Absolute Auto 0.1 X10*3/uL (0.0-0.2); Basophils Percent Auto 0.7 % (0-2); Eosinophils Absolute Auto 0.1 X10*3/uL (0.0-0.4); Hematocrit 34.1 % (37.0-47.0); Hemoglobin 10.5 g/dl (12.0-16.0); Imm Gran Abs Auto 0.03 X10*3/uL (0.00-0.03); Imm Gran Pct Auto 0.4 % (0.0-0.4); Lymphocytes Absolute Auto 1.4 X10*3/uL (1.2-4.9); Lymphocytes Percent Auto 19.3 % (20-40); Mean Corpuscular HGB Conc 30.8 g/dl (31.0-35.0); Mean Corpuscular Hemoglobin 23.3 pg (27.0-33.0); Mean Corpuscular Volume 75.8 fL (80.0-98.0); Mean Platelet Volume 10.9 fL (9.4-12.3); Monocytes Absolute Auto 0.3 X10*3/uL (0.1-1.2); Monocytes Percent Auto 4.8 % (2-11); Neutrophils Absolute Auto 5.3 x10*3/uL (2.0-8.3); Neutrophils Percent Auto 73.8 % (45-73); Platelet Count 181 X10*3/uL (160-400); Red Cell Distribution Width 17.5 % (11.0-16.0); White Blood Count 7.1 X10*3/uL (4.8-10.8)
== END 2024-02-15 06:43 | disposition home or self-care (01) ==
LOC: HO.MMNH3L 06:42
PROVIDERS: Visit Provider Family Medicine
DX: J44.9 Chronic obstructive pulmonary disease, unspecified (principal); F41.1 Generalized anxiety disorder; R41.89 Other symptoms and signs involving cognitive functions and awareness
CPT/HCPCS: 36415; 80048; 85025

== ENCOUNTER 2024-02-22 05:47 | Outpatient (REF) | payer MEDICARE, SELFPAY ==
[2024-02-22 05:35] LABS: MANUAL DIFF FLAG NO
[2024-02-22 06:08] LABS: Basophils Absolute Auto 0.1 X10*3/uL (0.0-0.2); Basophils Percent Auto 0.9 % (0-2); Eosinophils Absolute Auto 0.1 X10*3/uL (0.0-0.4); Eosinophils Percent Auto 1.5 % (0-4); Hematocrit 32.2 % (37.0-47.0); Imm Gran Abs Auto 0.02 X10*3/uL (0.00-0.03); Imm Gran Pct Auto 0.4 % (0.0-0.4); Lymphocytes Absolute Auto 1.3 X10*3/uL (1.2-4.9); Lymphocytes Percent Auto 23.9 % (20-40); Mean Corpuscular HGB Conc 31.1 g/dl (31.0-35.0); Mean Corpuscular Hemoglobin 23.4 pg (27.0-33.0); Mean Corpuscular Volume 75.2 fL (80.0-98.0); Mean Platelet Volume 10.8 fL (9.4-12.3); Monocytes Absolute Auto 0.3 X10*3/uL (0.1-1.2); Monocytes Percent Auto 6.3 % (2-11); Neutrophils Absolute Auto 3.5 x10*3/uL (2.0-8.3); Platelet Count 178 X10*3/uL (160-400); Red Blood Count 4.28 X10*6/uL (4.20-5.50); Red Cell Distribution Width 17.7 % (11.0-16.0); White Blood Count 5.3 X10*3/uL (4.8-10.8)
[2024-02-22 06:30] LABS: Anion Gap 14 (12-20); Blood Urea Nitrogen 16 mg/dL (9-16); Calcium 8.6 mg/dL (8.4-10.2); Carbon Dioxide 21 mmol/L (22-29); Chloride 109 mmol/L (96-108); Estimated Glomerular Filt Rate > 60; Glucose Random 107 mg/dL (60-115); Potassium 3.6 mmol/L (3.3-5.1); Sodium 140 mmol/L (135-145)
== END 2024-02-22 05:48 | disposition home or self-care (01) ==
LOC: HO.MMNH3L 05:47
PROVIDERS: Visit Provider Family Medicine
DX: J44.9 Chronic obstructive pulmonary disease, unspecified (principal); F41.1 Generalized anxiety disorder; R41.89 Other symptoms and signs involving cognitive functions and awareness
CPT/HCPCS: 36415; 80048; 85025

== ENCOUNTER 2024-02-29 06:00 | Outpatient (REF) | payer MEDICARE, SELFPAY ==
[2024-02-29 05:54] LABS: MANUAL DIFF FLAG NO
[2024-02-29 06:27] LABS: Basophils Absolute Auto 0.1 X10*3/uL (0.0-0.2); Basophils Percent Auto 1.2 % (0-2); Eosinophils Absolute Auto 0.1 X10*3/uL (0.0-0.4); Eosinophils Percent Auto 1.4 % (0-4); Hemoglobin 10.8 g/dl (12.0-16.0); Imm Gran Abs Auto 0.02 X10*3/uL (0.00-0.03); Imm Gran Pct Auto 0.5 % (0.0-0.4); Lymphocytes Absolute Auto 1.5 X10*3/uL (1.2-4.9); Lymphocytes Percent Auto 36.2 % (20-40); Mean Corpuscular HGB Conc 30.9 g/dl (31.0-35.0); Mean Corpuscular Hemoglobin 23.2 pg (27.0-33.0); Mean Corpuscular Volume 75.3 fL (80.0-98.0); Mean Platelet Volume 11.2 fL (9.4-12.3); Monocytes Absolute Auto 0.3 X10*3/uL (0.1-1.2); Monocytes Percent Auto 7.3 % (2-11); Neutrophils Absolute Auto 2.3 x10*3/uL (2.0-8.3); Neutrophils Percent Auto 53.4 % (45-73); Platelet Count 207 X10*3/uL (160-400); Red Blood Count 4.65 X10*6/uL (4.20-5.50); Red Cell Distribution Width 18.1 % (11.0-16.0); White Blood Count 4.3 X10*3/uL (4.8-10.8)
[2024-02-29 06:34] LABS: Anion Gap 16 (12-20); Blood Urea Nitrogen 17 mg/dL (9-16); Calcium 8.9 mg/dL (8.4-10.2); Carbon Dioxide 21 mmol/L (22-29); Chloride 107 mmol/L (96-108); Estimated Glomerular Filt Rate 56; Glucose Random 119 mg/dL (60-115); Potassium 3.5 mmol/L (3.3-5.1); Sodium 140 mmol/L (135-145)
== END 2024-02-29 06:01 | disposition home or self-care (01) ==
LOC: HO.MMNH3L 06:00
PROVIDERS: Visit Provider Family Medicine
DX: J44.9 Chronic obstructive pulmonary disease, unspecified (principal); F41.1 Generalized anxiety disorder; R41.89 Other symptoms and signs involving cognitive functions and awareness
CPT/HCPCS: 36415; 80048; 85025

== ENCOUNTER 2024-03-07 06:07 | Outpatient (REF) | payer MEDICARE, SELFPAY ==
[2024-03-07 05:55] LABS: MANUAL DIFF FLAG NO
[2024-03-07 06:52] LABS: Basophils Absolute Auto 0.1 X10*3/uL (0.0-0.2); Basophils Percent Auto 0.8 % (0-2); Eosinophils Absolute Auto 0.1 X10*3/uL (0.0-0.4); Eosinophils Percent Auto 1.4 % (0-4); Hematocrit 35.3 % (37.0-47.0); Hemoglobin 10.8 g/dl (12.0-16.0); Imm Gran Abs Auto 0.02 X10*3/uL (0.00-0.03); Imm Gran Pct Auto 0.3 % (0.0-0.4); Lymphocytes Absolute Auto 1.2 X10*3/uL (1.2-4.9); Lymphocytes Percent Auto 17.7 % (20-40); Mean Corpuscular HGB Conc 30.6 g/dl (31.0-35.0); Mean Corpuscular Hemoglobin 23.3 pg (27.0-33.0); Mean Corpuscular Volume 76.2 fL (80.0-98.0); Mean Platelet Volume 11.1 fL (9.4-12.3); Monocytes Absolute Auto 0.4 X10*3/uL (0.1-1.2); Monocytes Percent Auto 6.3 % (2-11); Neutrophils Absolute Auto 4.8 x10*3/uL (2.0-8.3); Neutrophils Percent Auto 73.5 % (45-73); Platelet Count 206 X10*3/uL (160-400); Red Blood Count 4.63 X10*6/uL (4.20-5.50); White Blood Count 6.5 X10*3/uL (4.8-10.8)
[2024-03-07 07:03] LABS: Anion Gap 14 (12-20); Blood Urea Nitrogen 13 mg/dL (9-16); Calcium 8.5 mg/dL (8.4-10.2); Carbon Dioxide 25 mmol/L (22-29); Chloride 106 mmol/L (96-108); Estimated Glomerular Filt Rate > 60; Glucose Random 112 mg/dL (60-115); Potassium 3.5 mmol/L (3.3-5.1); Sodium 141 mmol/L (135-145)
== END 2024-03-07 06:08 | disposition home or self-care (01) ==
LOC: HO.MMNH3L 06:07
PROVIDERS: Visit Provider Family Medicine
DX: J44.9 Chronic obstructive pulmonary disease, unspecified (principal); F41.1 Generalized anxiety disorder; R41.89 Other symptoms and signs involving cognitive functions and awareness
CPT/HCPCS: 36415; 80048; 85025

== ENCOUNTER 2024-03-15 06:27 | Outpatient (REF) | payer MEDICARE, SELFPAY ==
[2024-03-15 05:55] LABS: MANUAL DIFF FLAG NO
[2024-03-15 06:36] LABS: Basophils Absolute Auto 0.1 X10*3/uL (0.0-0.2); Basophils Percent Auto 1.4 % (0-2); Eosinophils Absolute Auto 0.1 X10*3/uL (0.0-0.4); Eosinophils Percent Auto 1.6 % (0-4); Hematocrit 37.1 % (37.0-47.0); Hemoglobin 11.4 g/dl (12.0-16.0); Imm Gran Abs Auto 0.02 X10*3/uL (0.00-0.03); Imm Gran Pct Auto 0.5 % (0.0-0.4); Lymphocytes Absolute Auto 1.2 X10*3/uL (1.2-4.9); Lymphocytes Percent Auto 27.3 % (20-40); Mean Corpuscular HGB Conc 30.7 g/dl (31.0-35.0); Mean Corpuscular Hemoglobin 23.5 pg (27.0-33.0); Mean Corpuscular Volume 76.5 fL (80.0-98.0); Mean Platelet Volume 10.7 fL (9.4-12.3); Monocytes Absolute Auto 0.2 X10*3/uL (0.1-1.2); Monocytes Percent Auto 5.1 % (2-11); Neutrophils Absolute Auto 2.8 x10*3/uL (2.0-8.3); Neutrophils Percent Auto 64.1 % (45-73); Platelet Count 230 X10*3/uL (160-400); Red Blood Count 4.85 X10*6/uL (4.20-5.50); Red Cell Distribution Width 18.5 % (11.0-16.0); White Blood Count 4.3 X10*3/uL (4.8-10.8)
[2024-03-15 06:55] LABS: Anion Gap 13 (12-20); Blood Urea Nitrogen 14 mg/dL (9-16); Calcium 9.1 mg/dL (8.4-10.2); Carbon Dioxide 25 mmol/L (22-29); Chloride 106 mmol/L (96-108); Estimated Glomerular Filt Rate > 60; Glucose Random 103 mg/dL (60-115); Potassium 3.4 mmol/L (3.3-5.1); Sodium 141 mmol/L (135-145)
== END 2024-03-15 06:28 | disposition home or self-care (01) ==
LOC: HO.MMNH3L 06:27
PROVIDERS: Visit Provider Hospitalist
DX: J44.9 Chronic obstructive pulmonary disease, unspecified (principal); F41.1 Generalized anxiety disorder; R41.89 Other symptoms and signs involving cognitive functions and awareness
CPT/HCPCS: 36415; 80048; 85025

== ENCOUNTER 2024-03-21 06:21 | Outpatient (REF) | payer MEDICARE, SELFPAY ==
[2024-03-21 05:51] LABS: MANUAL DIFF FLAG NO
[2024-03-21 06:43] LABS: Anion Gap 13 (12-20); Blood Urea Nitrogen 14 mg/dL (9-16); Calcium 8.1 mg/dL (8.4-10.2); Carbon Dioxide 22 mmol/L (22-29); Chloride 110 mmol/L (96-108); Estimated Glomerular Filt Rate > 60; Glucose Random 109 mg/dL (60-115); Potassium 3.5 mmol/L (3.3-5.1); Sodium 141 mmol/L (135-145)
[2024-03-21 06:55] LABS: Basophils Absolute Auto 0.1 X10*3/uL (0.0-0.2); Basophils Percent Auto 1.4 % (0-2); Eosinophils Absolute Auto 0.1 X10*3/uL (0.0-0.4); Eosinophils Percent Auto 2.1 % (0-4); Hematocrit 35.4 % (37.0-47.0); Hemoglobin 10.7 g/dl (12.0-16.0); Imm Gran Abs Auto 0.02 X10*3/uL (0.00-0.03); Imm Gran Pct Auto 0.5 % (0.0-0.4); Lymphocytes Absolute Auto 1.3 X10*3/uL (1.2-4.9); Lymphocytes Percent Auto 29.6 % (20-40); Mean Corpuscular HGB Conc 30.2 g/dl (31.0-35.0); Mean Corpuscular Hemoglobin 23.4 pg (27.0-33.0); Mean Corpuscular Volume 77.3 fL (80.0-98.0); Mean Platelet Volume 10.7 fL (9.4-12.3); Monocytes Absolute Auto 0.3 X10*3/uL (0.1-1.2); Monocytes Percent Auto 6.3 % (2-11); Neutrophils Absolute Auto 2.6 x10*3/uL (2.0-8.3); Neutrophils Percent Auto 60.1 % (45-73); Platelet Count 218 X10*3/uL (160-400); Red Blood Count 4.58 X10*6/uL (4.20-5.50); Red Cell Distribution Width 18.5 % (11.0-16.0); White Blood Count 4.3 X10*3/uL (4.8-10.8)
== END 2024-03-21 06:22 | disposition home or self-care (01) ==
LOC: HO.MMNH3L 06:21
PROVIDERS: Visit Provider Family Medicine
DX: J44.9 Chronic obstructive pulmonary disease, unspecified (principal); F41.1 Generalized anxiety disorder; R41.89 Other symptoms and signs involving cognitive functions and awareness
CPT/HCPCS: 36415; 80048; 85025

== ENCOUNTER 2024-03-28 06:20 | Outpatient (REF) | payer MEDICARE, SELFPAY ==
[2024-03-28 06:10] LABS: MANUAL DIFF FLAG NO
[2024-03-28 06:57] LABS: Basophils Absolute Auto 0.1 X10*3/uL (0.0-0.2); Eosinophils Absolute Auto 0.1 X10*3/uL (0.0-0.4); Eosinophils Percent Auto 1.4 % (0-4); Hematocrit 35.2 % (37.0-47.0); Hemoglobin 10.8 g/dl (12.0-16.0); Imm Gran Abs Auto 0.02 X10*3/uL (0.00-0.03); Imm Gran Pct Auto 0.4 % (0.0-0.4); Lymphocytes Absolute Auto 1.2 X10*3/uL (1.2-4.9); Lymphocytes Percent Auto 24.1 % (20-40); Mean Corpuscular HGB Conc 30.7 g/dl (31.0-35.0); Mean Corpuscular Hemoglobin 23.3 pg (27.0-33.0); Mean Corpuscular Volume 75.9 fL (80.0-98.0); Mean Platelet Volume 10.8 fL (9.4-12.3); Monocytes Absolute Auto 0.4 X10*3/uL (0.1-1.2); Monocytes Percent Auto 7.6 % (2-11); Neutrophils Absolute Auto 3.3 x10*3/uL (2.0-8.3); Neutrophils Percent Auto 65.5 % (45-73); Platelet Count 230 X10*3/uL (160-400); Red Blood Count 4.64 X10*6/uL (4.20-5.50); Red Cell Distribution Width 18.5 % (11.0-16.0)
[2024-03-28 07:23] LABS: Anion Gap 13 (12-20); Blood Urea Nitrogen 17 mg/dL (9-16); Calcium 8.5 mg/dL (8.4-10.2); Carbon Dioxide 24 mmol/L (22-29); Chloride 107 mmol/L (96-108); Estimated Glomerular Filt Rate 53; Glucose Random 110 mg/dL (60-115); Potassium 3.6 mmol/L (3.3-5.1); Sodium 140 mmol/L (135-145)
== END 2024-03-28 06:21 | disposition home or self-care (01) ==
LOC: HO.MMNH3L 06:20
PROVIDERS: Visit Provider Family Medicine
DX: J44.9 Chronic obstructive pulmonary disease, unspecified (principal); F41.1 Generalized anxiety disorder; R41.89 Other symptoms and signs involving cognitive functions and awareness
CPT/HCPCS: 36415; 80048; 85025

== ENCOUNTER 2024-04-04 06:29 | Outpatient (REF) | payer MEDICARE, SELFPAY ==
[2024-04-04 06:05] LABS: MANUAL DIFF FLAG NO
[2024-04-04 07:10] LABS: Anion Gap 13 (12-20); Blood Urea Nitrogen 12 mg/dL (9-16); Calcium 8.5 mg/dL (8.4-10.2); Carbon Dioxide 24 mmol/L (22-29); Chloride 108 mmol/L (96-108); Estimated Glomerular Filt Rate > 60; Glucose Random 107 mg/dL (60-115); Potassium 3.1 mmol/L (3.3-5.1); Sodium 142 mmol/L (135-145)
[2024-04-04 07:18] LABS: Basophils Absolute Auto 0.1 X10*3/uL (0.0-0.2); Basophils Percent Auto 1.4 % (0-2); Eosinophils Absolute Auto 0.1 X10*3/uL (0.0-0.4); Hematocrit 38.3 % (37.0-47.0); Hemoglobin 11.8 g/dl (12.0-16.0); Imm Gran Abs Auto 0.01 X10*3/uL (0.00-0.03); Imm Gran Pct Auto 0.2 % (0.0-0.4); Lymphocytes Absolute Auto 1.4 X10*3/uL (1.2-4.9); Lymphocytes Percent Auto 28.3 % (20-40); Mean Corpuscular HGB Conc 30.8 g/dl (31.0-35.0); Mean Corpuscular Hemoglobin 23.6 pg (27.0-33.0); Mean Corpuscular Volume 76.4 fL (80.0-98.0); Mean Platelet Volume 10.5 fL (9.4-12.3); Monocytes Absolute Auto 0.3 X10*3/uL (0.1-1.2); Monocytes Percent Auto 6.1 % (2-11); Neutrophils Absolute Auto 3.1 x10*3/uL (2.0-8.3); Platelet Count 284 X10*3/uL (160-400); Red Blood Count 5.01 X10*6/uL (4.20-5.50); Red Cell Distribution Width 18.1 % (11.0-16.0); White Blood Count 4.9 X10*3/uL (4.8-10.8)
== END 2024-04-04 06:30 | disposition home or self-care (01) ==
LOC: HO.MMNH3L 06:29
PROVIDERS: Visit Provider Family Medicine
DX: J44.9 Chronic obstructive pulmonary disease, unspecified (principal); F41.1 Generalized anxiety disorder; R41.89 Other symptoms and signs involving cognitive functions and awareness
CPT/HCPCS: 36415; 80048; 85025

== ENCOUNTER 2024-04-05 17:12 | Outpatient (REF) | payer MEDICARE, SELFPAY ==
[2024-04-05 17:23] LABS: Appearance Urine Turbid; Color Urine Yellow; Glucose Urine UA Negative (Negative); Leukocyte Esterase Urine Large (3+) (Negative); Nitrite Urine Positive (Negative); UMIC TRIGGER UA YES; Urine Blood Moderate (2+) (Negative); Urine Ketones Negative (Negative); Urine Protein 30 (1+) mg/dL (Neg-Trace)
[2024-04-05 18:16] LABS: Bacteria Urine 4+ (None Seen); Hyaline Casts Urine 0-2 /LPF (0-2); RBC Urine 0-2 /HPF (0-2); WBC Urine >50 /HPF (0-5)
== END 2024-04-05 17:13 | disposition home or self-care (01) ==
LOC: HO.MMNH3L 17:12
PROVIDERS: Visit Provider Family Medicine
DX: N32.81 Overactive bladder (principal); R82.90 Unspecified abnormal findings in urine
CPT/HCPCS: 81001; 87086; 87088; 87186

== ENCOUNTER 2024-04-11 06:58 | Outpatient (REF) | payer MEDICARE, SELFPAY ==
[2024-04-11 05:48] LABS: MANUAL DIFF FLAG NO
[2024-04-11 07:00] LABS: Basophils Absolute Auto 0.1 X10*3/uL (0.0-0.2); Basophils Percent Auto 1.5 % (0-2); Eosinophils Absolute Auto 0.1 X10*3/uL (0.0-0.4); Eosinophils Percent Auto 1.9 % (0-4); Hematocrit 35.3 % (37.0-47.0); Imm Gran Abs Auto 0.02 X10*3/uL (0.00-0.03); Imm Gran Pct Auto 0.4 % (0.0-0.4); Lymphocytes Absolute Auto 1.4 X10*3/uL (1.2-4.9); Lymphocytes Percent Auto 29.6 % (20-40); Mean Corpuscular HGB Conc 31.2 g/dl (31.0-35.0); Mean Corpuscular Hemoglobin 23.8 pg (27.0-33.0); Mean Corpuscular Volume 76.2 fL (80.0-98.0); Mean Platelet Volume 11.2 fL (9.4-12.3); Monocytes Absolute Auto 0.4 X10*3/uL (0.1-1.2); Monocytes Percent Auto 7.5 % (2-11); Neutrophils Absolute Auto 2.8 x10*3/uL (2.0-8.3); Neutrophils Percent Auto 59.1 % (45-73); Platelet Count 296 X10*3/uL (160-400); Red Blood Count 4.63 X10*6/uL (4.20-5.50); Red Cell Distribution Width 18.6 % (11.0-16.0); White Blood Count 4.8 X10*3/uL (4.8-10.8)
[2024-04-11 07:25] LABS: Anion Gap 11 (12-20); Blood Urea Nitrogen 11 mg/dL (9-16); Calcium 8.8 mg/dL (8.4-10.2); Carbon Dioxide 22 mmol/L (22-29); Chloride 111 mmol/L (96-108); Estimated Glomerular Filt Rate > 60; Glucose Random 98 mg/dL (60-115); Potassium 3.7 mmol/L (3.3-5.1); Sodium 140 mmol/L (135-145)
== END 2024-04-11 06:59 | disposition home or self-care (01) ==
LOC: HO.MMNH3L 06:58
PROVIDERS: Visit Provider Family Medicine
DX: J44.9 Chronic obstructive pulmonary disease, unspecified (principal); F41.1 Generalized anxiety disorder; R41.89 Other symptoms and signs involving cognitive functions and awareness
CPT/HCPCS: 36415; 80048; 85025

== ENCOUNTER 2024-04-18 06:39 | Outpatient (REF) | payer MEDICARE, SELFPAY ==
[2024-04-18 06:14] LABS: MANUAL DIFF FLAG NO
[2024-04-18 07:01] LABS: Basophils Absolute Auto 0.1 X10*3/uL (0.0-0.2); Basophils Percent Auto 1.6 % (0-2); Eosinophils Absolute Auto 0.1 X10*3/uL (0.0-0.4); Eosinophils Percent Auto 1.7 % (0-4); Hematocrit 36.2 % (37.0-47.0); Hemoglobin 10.9 g/dl (12.0-16.0); Imm Gran Abs Auto 0.02 X10*3/uL (0.00-0.03); Imm Gran Pct Auto 0.3 % (0.0-0.4); Lymphocytes Absolute Auto 1.7 X10*3/uL (1.2-4.9); Lymphocytes Percent Auto 26.1 % (20-40); Mean Corpuscular HGB Conc 30.1 g/dl (31.0-35.0); Mean Corpuscular Hemoglobin 22.9 pg (27.0-33.0); Mean Corpuscular Volume 76.2 fL (80.0-98.0); Mean Platelet Volume 11.2 fL (9.4-12.3); Monocytes Absolute Auto 0.4 X10*3/uL (0.1-1.2); Monocytes Percent Auto 6.1 % (2-11); Neutrophils Absolute Auto 4.1 x10*3/uL (2.0-8.3); Neutrophils Percent Auto 64.2 % (45-73); Platelet Count 316 X10*3/uL (160-400); Red Blood Count 4.75 X10*6/uL (4.20-5.50); Red Cell Distribution Width 18.5 % (11.0-16.0); White Blood Count 6.4 X10*3/uL (4.8-10.8)
[2024-04-18 07:36] LABS: Anion Gap 11 (12-20); Blood Urea Nitrogen 12 mg/dL (9-16); Calcium 8.7 mg/dL (8.4-10.2); Carbon Dioxide 25 mmol/L (22-29); Chloride 110 mmol/L (96-108); Estimated Glomerular Filt Rate 56; Glucose Random 99 mg/dL (60-115); Sodium 142 mmol/L (135-145)
== END 2024-04-18 06:40 | disposition home or self-care (01) ==
LOC: HO.MMNH3L 06:39
PROVIDERS: Visit Provider Family Medicine
DX: J44.9 Chronic obstructive pulmonary disease, unspecified (principal); F41.1 Generalized anxiety disorder; R41.89 Other symptoms and signs involving cognitive functions and awareness
CPT/HCPCS: 36415; 80048; 85025

== ENCOUNTER 2024-04-25 06:48 | Outpatient (REF) | payer MEDICARE, SELFPAY ==
[2024-04-25 06:04] LABS: MANUAL DIFF FLAG NO
[2024-04-25 07:18] LABS: Basophils Absolute Auto 0.1 X10*3/uL (0.0-0.2); Basophils Percent Auto 1.5 % (0-2); Eosinophils Absolute Auto 0.1 X10*3/uL (0.0-0.4); Eosinophils Percent Auto 1.9 % (0-4); Hematocrit 37.7 % (37.0-47.0); Hemoglobin 11.7 g/dl (12.0-16.0); Imm Gran Abs Auto 0.02 X10*3/uL (0.00-0.03); Imm Gran Pct Auto 0.4 % (0.0-0.4); Lymphocytes Absolute Auto 1.7 X10*3/uL (1.2-4.9); Lymphocytes Percent Auto 31.8 % (20-40); Mean Corpuscular Hemoglobin 23.4 pg (27.0-33.0); Mean Corpuscular Volume 75.2 fL (80.0-98.0); Mean Platelet Volume 10.5 fL (9.4-12.3); Monocytes Absolute Auto 0.4 X10*3/uL (0.1-1.2); Monocytes Percent Auto 6.8 % (2-11); Neutrophils Absolute Auto 3.1 x10*3/uL (2.0-8.3); Neutrophils Percent Auto 57.6 % (45-73); Platelet Count 308 X10*3/uL (160-400); Red Blood Count 5.01 X10*6/uL (4.20-5.50); Red Cell Distribution Width 17.8 % (11.0-16.0); White Blood Count 5.3 X10*3/uL (4.8-10.8)
[2024-04-25 07:30] LABS: Anion Gap 16 (12-20); Blood Urea Nitrogen 12 mg/dL (9-16); Carbon Dioxide 23 mmol/L (22-29); Chloride 110 mmol/L (96-108); Estimated Glomerular Filt Rate > 60; Glucose Random 112 mg/dL (60-115); Potassium 3.6 mmol/L (3.3-5.1); Sodium 145 mmol/L (135-145)
== END 2024-04-25 06:49 | disposition home or self-care (01) ==
LOC: HO.MMNH3L 06:48
PROVIDERS: Visit Provider Family Medicine
DX: J44.9 Chronic obstructive pulmonary disease, unspecified (principal); F41.1 Generalized anxiety disorder; R41.89 Other symptoms and signs involving cognitive functions and awareness
CPT/HCPCS: 36415; 80048; 85025

== ENCOUNTER 2024-05-02 06:34 | Outpatient (REF) | payer MEDICARE, SELFPAY ==
[2024-05-02 06:03] LABS: MANUAL DIFF FLAG NO
[2024-05-02 07:07] LABS: Basophils Absolute Auto 0.1 X10*3/uL (0.0-0.2); Basophils Percent Auto 1.3 % (0-2); Eosinophils Absolute Auto 0.1 X10*3/uL (0.0-0.4); Eosinophils Percent Auto 1.6 % (0-4); Hematocrit 38.9 % (37.0-47.0); Hemoglobin 11.9 g/dl (12.0-16.0); Imm Gran Abs Auto 0.03 X10*3/uL (0.00-0.03); Imm Gran Pct Auto 0.4 % (0.0-0.4); Lymphocytes Absolute Auto 1.8 X10*3/uL (1.2-4.9); Lymphocytes Percent Auto 26.3 % (20-40); Mean Corpuscular HGB Conc 30.6 g/dl (31.0-35.0); Mean Corpuscular Hemoglobin 23.1 pg (27.0-33.0); Mean Corpuscular Volume 75.4 fL (80.0-98.0); Mean Platelet Volume 10.4 fL (9.4-12.3); Monocytes Absolute Auto 0.3 X10*3/uL (0.1-1.2); Monocytes Percent Auto 5.1 % (2-11); Neutrophils Absolute Auto 4.4 x10*3/uL (2.0-8.3); Neutrophils Percent Auto 65.3 % (45-73); Platelet Count 356 X10*3/uL (160-400); Red Blood Count 5.16 X10*6/uL (4.20-5.50); Red Cell Distribution Width 17.8 % (11.0-16.0); White Blood Count 6.7 X10*3/uL (4.8-10.8)
[2024-05-02 07:20] LABS: Anion Gap 13 (12-20); Blood Urea Nitrogen 9 mg/dL (9-16); Calcium 8.7 mg/dL (8.4-10.2); Carbon Dioxide 21 mmol/L (22-29); Chloride 108 mmol/L (96-108); Estimated Glomerular Filt Rate > 60; Glucose Random 92 mg/dL (60-115); Potassium 3.4 mmol/L (3.3-5.1); Sodium 139 mmol/L (135-145)
== END 2024-05-02 06:35 | disposition home or self-care (01) ==
LOC: HO.MMNH3L 06:34
PROVIDERS: Visit Provider Family Medicine
DX: J44.9 Chronic obstructive pulmonary disease, unspecified (principal); F41.1 Generalized anxiety disorder; R41.89 Other symptoms and signs involving cognitive functions and awareness
CPT/HCPCS: 36415; 80048; 85025

== ENCOUNTER 2024-05-09 06:25 | Outpatient (REF) | payer MEDICARE, SELFPAY ==
[2024-05-09 06:02] LABS: MANUAL DIFF FLAG NO
[2024-05-09 07:03] LABS: Basophils Absolute Auto 0.1 X10*3/uL (0.0-0.2); Basophils Percent Auto 1.2 % (0-2); Eosinophils Absolute Auto 0.1 X10*3/uL (0.0-0.4); Eosinophils Percent Auto 1.3 % (0-4); Hematocrit 38.7 % (37.0-47.0); Hemoglobin 11.7 g/dl (12.0-16.0); Imm Gran Abs Auto 0.04 X10*3/uL (0.00-0.03); Imm Gran Pct Auto 0.5 % (0.0-0.4); Lymphocytes Absolute Auto 1.7 X10*3/uL (1.2-4.9); Mean Corpuscular HGB Conc 30.2 g/dl (31.0-35.0); Monocytes Absolute Auto 0.4 X10*3/uL (0.1-1.2); Neutrophils Absolute Auto 5.8 x10*3/uL (2.0-8.3); Platelet Count 358 X10*3/uL (160-400); Red Blood Count 5.09 X10*6/uL (4.20-5.50); Red Cell Distribution Width 17.6 % (11.0-16.0); White Blood Count 8.2 X10*3/uL (4.8-10.8)
[2024-05-09 07:24] LABS: Anion Gap 13 (12-20); Blood Urea Nitrogen 11 mg/dL (9-16); Calcium 8.5 mg/dL (8.4-10.2); Carbon Dioxide 21 mmol/L (22-29); Chloride 108 mmol/L (96-108); Estimated Glomerular Filt Rate > 60; Glucose Random 101 mg/dL (60-115); Potassium 3.6 mmol/L (3.3-5.1); Sodium 138 mmol/L (135-145)
== END 2024-05-09 06:26 | disposition home or self-care (01) ==
LOC: HO.MMNH3L 06:25
PROVIDERS: Visit Provider Family Medicine
DX: J44.9 Chronic obstructive pulmonary disease, unspecified (principal); F41.1 Generalized anxiety disorder; R41.89 Other symptoms and signs involving cognitive functions and awareness
CPT/HCPCS: 36415; 80048; 85025

== ENCOUNTER 2024-05-16 06:38 | Outpatient (REF) | payer MEDICARE, SELFPAY ==
[2024-05-16 06:02] LABS: MANUAL DIFF FLAG NO
[2024-05-16 07:11] LABS: Basophils Absolute Auto 0.1 X10*3/uL (0.0-0.2); Basophils Percent Auto 1.2 % (0-2); Eosinophils Absolute Auto 0.2 X10*3/uL (0.0-0.4); Eosinophils Percent Auto 2.4 % (0-4); Hematocrit 39.6 % (37.0-47.0); Hemoglobin 12.1 g/dl (12.0-16.0); Imm Gran Abs Auto 0.02 X10*3/uL (0.00-0.03); Imm Gran Pct Auto 0.3 % (0.0-0.4); Lymphocytes Absolute Auto 1.6 X10*3/uL (1.2-4.9); Lymphocytes Percent Auto 23.7 % (20-40); Mean Corpuscular HGB Conc 30.6 g/dl (31.0-35.0); Mean Corpuscular Hemoglobin 22.9 pg (27.0-33.0); Mean Platelet Volume 10.8 fL (9.4-12.3); Monocytes Absolute Auto 0.3 X10*3/uL (0.1-1.2); Monocytes Percent Auto 5.1 % (2-11); Neutrophils Absolute Auto 4.5 x10*3/uL (2.0-8.3); Neutrophils Percent Auto 67.3 % (45-73); Platelet Count 398 X10*3/uL (160-400); Red Blood Count 5.28 X10*6/uL (4.20-5.50); Red Cell Distribution Width 18.5 % (11.0-16.0); White Blood Count 6.6 X10*3/uL (4.8-10.8)
[2024-05-16 08:11] LABS: Anion Gap 12 (12-20); Blood Urea Nitrogen 12 mg/dL (9-16); Calcium 8.7 mg/dL (8.4-10.2); Carbon Dioxide 21 mmol/L (22-29); Chloride 110 mmol/L (96-108); Estimated Glomerular Filt Rate > 60; Glucose Random 119 mg/dL (60-115); Potassium 3.3 mmol/L (3.3-5.1); Sodium 140 mmol/L (135-145)
== END 2024-05-16 06:39 | disposition home or self-care (01) ==
LOC: HO.MMNH3L 06:38
PROVIDERS: Visit Provider Family Medicine
DX: J44.9 Chronic obstructive pulmonary disease, unspecified (principal); F41.1 Generalized anxiety disorder; R41.89 Other symptoms and signs involving cognitive functions and awareness
CPT/HCPCS: 36415; 80048; 85025

== ENCOUNTER 2024-05-23 06:06 | Outpatient (REF) | payer MEDICARE, SELFPAY ==
[2024-05-23 05:48] LABS: MANUAL DIFF FLAG NO
[2024-05-23 06:33] LABS: Basophils Absolute Auto 0.1 X10*3/uL (0.0-0.2); Basophils Percent Auto 1.4 % (0-2); Eosinophils Absolute Auto 0.1 X10*3/uL (0.0-0.4); Hematocrit 36.6 % (37.0-47.0); Hemoglobin 11.2 g/dl (12.0-16.0); Imm Gran Abs Auto 0.02 X10*3/uL (0.00-0.03); Imm Gran Pct Auto 0.3 % (0.0-0.4); Lymphocytes Absolute Auto 1.8 X10*3/uL (1.2-4.9); Lymphocytes Percent Auto 28.1 % (20-40); Mean Corpuscular HGB Conc 30.6 g/dl (31.0-35.0); Mean Corpuscular Hemoglobin 22.7 pg (27.0-33.0); Mean Corpuscular Volume 74.2 fL (80.0-98.0); Mean Platelet Volume 10.7 fL (9.4-12.3); Monocytes Absolute Auto 0.4 X10*3/uL (0.1-1.2); Monocytes Percent Auto 6.1 % (2-11); Neutrophils Percent Auto 62.1 % (45-73); Platelet Count 359 X10*3/uL (160-400); Red Blood Count 4.93 X10*6/uL (4.20-5.50); Red Cell Distribution Width 18.7 % (11.0-16.0); White Blood Count 6.4 X10*3/uL (4.8-10.8)
[2024-05-23 07:10] LABS: Anion Gap 13 (12-20); Blood Urea Nitrogen 15 mg/dL (9-16); Calcium 8.2 mg/dL (8.4-10.2); Carbon Dioxide 21 mmol/L (22-29); Chloride 108 mmol/L (96-108); Estimated Glomerular Filt Rate > 60; Glucose Random 106 mg/dL (60-115); Potassium 3.7 mmol/L (3.3-5.1); Sodium 138 mmol/L (135-145)
== END 2024-05-23 06:07 | disposition home or self-care (01) ==
LOC: HO.MMNH3L 06:06
PROVIDERS: Visit Provider Family Medicine
DX: J44.9 Chronic obstructive pulmonary disease, unspecified (principal); F41.1 Generalized anxiety disorder; R41.89 Other symptoms and signs involving cognitive functions and awareness
CPT/HCPCS: 36415; 80048; 85025

== ENCOUNTER 2024-05-30 05:46 | Outpatient (REF) | payer MEDICARE, SELFPAY ==
[2024-05-30 05:39] LABS: MANUAL DIFF FLAG NO
[2024-05-30 06:36] LABS: Anion Gap 14 (12-20); Blood Urea Nitrogen 15 mg/dL (9-16); Calcium 8.6 mg/dL (8.4-10.2); Carbon Dioxide 20 mmol/L (22-29); Chloride 110 mmol/L (96-108); Estimated Glomerular Filt Rate > 60; Glucose Random 102 mg/dL (60-115); Potassium 3.4 mmol/L (3.3-5.1); Sodium 141 mmol/L (135-145)
[2024-05-30 07:09] LABS: Basophils Absolute Auto 0.1 X10*3/uL (0.0-0.2); Basophils Percent Auto 1.5 % (0-2); Eosinophils Absolute Auto 0.2 X10*3/uL (0.0-0.4); Eosinophils Percent Auto 1.9 % (0-4); Hematocrit 35.7 % (37.0-47.0); Hemoglobin 10.9 g/dl (12.0-16.0); Imm Gran Abs Auto 0.03 X10*3/uL (0.00-0.03); Imm Gran Pct Auto 0.4 % (0.0-0.4); Lymphocytes Absolute Auto 1.9 X10*3/uL (1.2-4.9); Lymphocytes Percent Auto 24.3 % (20-40); Mean Corpuscular HGB Conc 30.5 g/dl (31.0-35.0); Mean Corpuscular Hemoglobin 22.7 pg (27.0-33.0); Mean Corpuscular Volume 74.4 fL (80.0-98.0); Mean Platelet Volume 11.5 fL (9.4-12.3); Monocytes Absolute Auto 0.4 X10*3/uL (0.1-1.2); Monocytes Percent Auto 4.6 % (2-11); Neutrophils Absolute Auto 5.3 x10*3/uL (2.0-8.3); Neutrophils Percent Auto 67.3 % (45-73); Platelet Count 372 X10*3/uL (160-400); Red Cell Distribution Width 19.3 % (11.0-16.0); White Blood Count 7.8 X10*3/uL (4.8-10.8)
== END 2024-05-30 05:47 | disposition home or self-care (01) ==
LOC: HO.MMNH3L 05:46
PROVIDERS: Visit Provider Family Medicine
DX: J44.9 Chronic obstructive pulmonary disease, unspecified (principal); F41.1 Generalized anxiety disorder; R41.89 Other symptoms and signs involving cognitive functions and awareness
CPT/HCPCS: 36415; 80048; 85025

== ENCOUNTER 2024-06-06 05:49 | Outpatient (REF) | payer MEDICARE, SELFPAY ==
[2024-06-06 05:40] LABS: MANUAL DIFF FLAG NO
[2024-06-06 06:19] LABS: Basophils Absolute Auto 0.1 X10*3/uL (0.0-0.2); Eosinophils Absolute Auto 0.2 X10*3/uL (0.0-0.4); Eosinophils Percent Auto 2.3 % (0-4); Hematocrit 36.8 % (37.0-47.0); Hemoglobin 11.1 g/dl (12.0-16.0); Imm Gran Abs Auto 0.03 X10*3/uL (0.00-0.03); Imm Gran Pct Auto 0.5 % (0.0-0.4); Lymphocytes Absolute Auto 1.7 X10*3/uL (1.2-4.9); Lymphocytes Percent Auto 25.3 % (20-40); Mean Corpuscular HGB Conc 30.2 g/dl (31.0-35.0); Mean Corpuscular Hemoglobin 22.7 pg (27.0-33.0); Mean Corpuscular Volume 75.3 fL (80.0-98.0); Monocytes Absolute Auto 0.4 X10*3/uL (0.1-1.2); Monocytes Percent Auto 5.5 % (2-11); Neutrophils Absolute Auto 4.2 x10*3/uL (2.0-8.3); Neutrophils Percent Auto 64.4 % (45-73); Platelet Count 378 X10*3/uL (160-400); Red Blood Count 4.89 X10*6/uL (4.20-5.50); Red Cell Distribution Width 19.2 % (11.0-16.0); White Blood Count 6.5 X10*3/uL (4.8-10.8)
[2024-06-06 07:00] LABS: Anion Gap 17 (12-20); Blood Urea Nitrogen 12 mg/dL (9-16); Calcium 8.4 mg/dL (8.4-10.2); Carbon Dioxide 19 mmol/L (22-29); Chloride 107 mmol/L (96-108); Estimated Glomerular Filt Rate > 60; Glucose Random 92 mg/dL (60-115); Potassium 3.6 mmol/L (3.3-5.1); Sodium 139 mmol/L (135-145)
== END 2024-06-06 05:50 | disposition home or self-care (01) ==
LOC: HO.MMNH3L 05:49
PROVIDERS: Visit Provider Family Medicine
DX: J44.9 Chronic obstructive pulmonary disease, unspecified (principal); F41.1 Generalized anxiety disorder; R41.89 Other symptoms and signs involving cognitive functions and awareness
CPT/HCPCS: 36415; 80048; 85025

== ENCOUNTER 2024-06-13 06:22 | Outpatient (REF) | payer MEDICARE, SELFPAY ==
[2024-06-13 06:19] LABS: MANUAL DIFF FLAG NO
[2024-06-13 06:26] LABS: Basophils Absolute Auto 0.1 X10*3/uL (0.0-0.2); Basophils Percent Auto 1.6 % (0-2); Eosinophils Absolute Auto 0.2 X10*3/uL (0.0-0.4); Eosinophils Percent Auto 1.9 % (0-4); Hematocrit 35.6 % (37.0-47.0); Hemoglobin 10.9 g/dl (12.0-16.0); Imm Gran Abs Auto 0.04 X10*3/uL (0.00-0.03); Imm Gran Pct Auto 0.5 % (0.0-0.4); Lymphocytes Absolute Auto 1.7 X10*3/uL (1.2-4.9); Lymphocytes Percent Auto 21.4 % (20-40); Mean Corpuscular HGB Conc 30.6 g/dl (31.0-35.0); Mean Corpuscular Hemoglobin 22.9 pg (27.0-33.0); Mean Corpuscular Volume 74.9 fL (80.0-98.0); Mean Platelet Volume 11.5 fL (9.4-12.3); Monocytes Absolute Auto 0.4 X10*3/uL (0.1-1.2); Monocytes Percent Auto 5.4 % (2-11); Neutrophils Absolute Auto 5.5 x10*3/uL (2.0-8.3); Neutrophils Percent Auto 69.2 % (45-73); Platelet Count 408 X10*3/uL (160-400); Red Blood Count 4.75 X10*6/uL (4.20-5.50); Red Cell Distribution Width 19.3 % (11.0-16.0)
[2024-06-13 06:55] LABS: Anion Gap 12 (12-20); Blood Urea Nitrogen 12 mg/dL (9-16); Calcium 8.5 mg/dL (8.4-10.2); Carbon Dioxide 23 mmol/L (22-29); Chloride 110 mmol/L (96-108); Estimated Glomerular Filt Rate > 60; Glucose Random 92 mg/dL (60-115); Potassium 3.6 mmol/L (3.3-5.1); Sodium 141 mmol/L (135-145)
== END 2024-06-13 06:23 | disposition home or self-care (01) ==
LOC: HO.MMNH3L 06:22
PROVIDERS: Visit Provider Family Medicine
DX: J44.9 Chronic obstructive pulmonary disease, unspecified (principal); F41.1 Generalized anxiety disorder; R41.89 Other symptoms and signs involving cognitive functions and awareness
CPT/HCPCS: 36415; 80048; 85025

== ENCOUNTER 2024-06-20 06:04 | Outpatient (REF) | payer MEDICARE, SELFPAY ==
[2024-06-20 05:44] LABS: MANUAL DIFF FLAG NO
[2024-06-20 06:23] LABS: Basophils Absolute Auto 0.1 X10*3/uL (0.0-0.2); Basophils Percent Auto 1.1 % (0-2); Eosinophils Absolute Auto 0.2 X10*3/uL (0.0-0.4); Eosinophils Percent Auto 1.5 % (0-4); Hematocrit 36.8 % (37.0-47.0); Hemoglobin 11.5 g/dl (12.0-16.0); Imm Gran Abs Auto 0.05 X10*3/uL (0.00-0.03); Imm Gran Pct Auto 0.5 % (0.0-0.4); Lymphocytes Absolute Auto 1.8 X10*3/uL (1.2-4.9); Lymphocytes Percent Auto 17.7 % (20-40); Mean Corpuscular HGB Conc 31.3 g/dl (31.0-35.0); Mean Corpuscular Hemoglobin 23.5 pg (27.0-33.0); Mean Corpuscular Volume 75.1 fL (80.0-98.0); Mean Platelet Volume 11.7 fL (9.4-12.3); Monocytes Absolute Auto 0.4 X10*3/uL (0.1-1.2); Monocytes Percent Auto 3.8 % (2-11); Neutrophils Absolute Auto 7.5 x10*3/uL (2.0-8.3); Neutrophils Percent Auto 75.4 % (45-73); Platelet Count 466 X10*3/uL (160-400); Red Cell Distribution Width 19.7 % (11.0-16.0)
[2024-06-20 06:56] LABS: Anion Gap 13 (12-20); Blood Urea Nitrogen 18 mg/dL (9-16); Calcium 8.7 mg/dL (8.4-10.2); Carbon Dioxide 23 mmol/L (22-29); Chloride 106 mmol/L (96-108); Estimated Glomerular Filt Rate > 60; Glucose Random 119 mg/dL (60-115); Magnesium 1.9 mg/dL (1.6-2.6); Potassium 3.4 mmol/L (3.3-5.1); Sodium 139 mmol/L (135-145)
== END 2024-06-20 06:05 | disposition home or self-care (01) ==
LOC: HO.MMNH3L 06:04
PROVIDERS: Visit Provider Family Medicine
DX: J44.9 Chronic obstructive pulmonary disease, unspecified (principal); F41.1 Generalized anxiety disorder; R41.89 Other symptoms and signs involving cognitive functions and awareness
CPT/HCPCS: 36415; 80048; 83735; 85025

== ENCOUNTER 2024-06-27 06:12 | Outpatient (REF) | payer MEDICARE, SELFPAY ==
[2024-06-27 05:40] LABS: MANUAL DIFF FLAG NO
[2024-06-27 06:13] LABS: Basophils Absolute Auto 0.2 X10*3/uL (0.0-0.2); Basophils Percent Auto 1.7 % (0-2); Eosinophils Absolute Auto 0.2 X10*3/uL (0.0-0.4); Hematocrit 34.7 % (37.0-47.0); Hemoglobin 10.4 g/dl (12.0-16.0); Imm Gran Abs Auto 0.06 X10*3/uL (0.00-0.03); Imm Gran Pct Auto 0.7 % (0.0-0.4); Lymphocytes Absolute Auto 1.5 X10*3/uL (1.2-4.9); Lymphocytes Percent Auto 17.8 % (20-40); Mean Corpuscular Hemoglobin 22.5 pg (27.0-33.0); Mean Corpuscular Volume 75.1 fL (80.0-98.0); Monocytes Absolute Auto 0.4 X10*3/uL (0.1-1.2); Monocytes Percent Auto 4.5 % (2-11); Neutrophils Absolute Auto 6.3 x10*3/uL (2.0-8.3); Neutrophils Percent Auto 73.3 % (45-73); Platelet Count 415 X10*3/uL (160-400); Red Blood Count 4.62 X10*6/uL (4.20-5.50); Red Cell Distribution Width 19.6 % (11.0-16.0); White Blood Count 8.6 X10*3/uL (4.8-10.8)
[2024-06-27 06:21] LABS: Anion Gap 14 (12-20); Blood Urea Nitrogen 14 mg/dL (9-16); Calcium 8.2 mg/dL (8.4-10.2); Carbon Dioxide 22 mmol/L (22-29); Chloride 110 mmol/L (96-108); Estimated Glomerular Filt Rate > 60; Glucose Random 113 mg/dL (60-115); Potassium 3.6 mmol/L (3.3-5.1); Sodium 142 mmol/L (135-145)
== END 2024-06-27 06:13 | disposition home or self-care (01) ==
LOC: HO.MMNH3L 06:12
PROVIDERS: Visit Provider Family Medicine
DX: J44.9 Chronic obstructive pulmonary disease, unspecified (principal); F41.1 Generalized anxiety disorder; R41.89 Other symptoms and signs involving cognitive functions and awareness
CPT/HCPCS: 36415; 80048; 85025

== ENCOUNTER 2024-07-04 07:00 | Outpatient (REF) | payer MEDICARE, SELFPAY ==
[2024-07-04 06:19] LABS: MANUAL DIFF FLAG NO
[2024-07-04 06:56] LABS: Basophils Absolute Auto 0.1 X10*3/uL (0.0-0.2); Basophils Percent Auto 1.5 % (0-2); Eosinophils Absolute Auto 0.1 X10*3/uL (0.0-0.4); Eosinophils Percent Auto 1.8 % (0-4); Hematocrit 38.7 % (37.0-47.0); Hemoglobin 11.8 g/dl (12.0-16.0); Imm Gran Abs Auto 0.02 X10*3/uL (0.00-0.03); Imm Gran Pct Auto 0.3 % (0.0-0.4); Lymphocytes Absolute Auto 1.7 X10*3/uL (1.2-4.9); Mean Corpuscular HGB Conc 30.5 g/dl (31.0-35.0); Mean Corpuscular Hemoglobin 22.8 pg (27.0-33.0); Mean Corpuscular Volume 74.9 fL (80.0-98.0); Mean Platelet Volume 10.9 fL (9.4-12.3); Monocytes Absolute Auto 0.2 X10*3/uL (0.1-1.2); Monocytes Percent Auto 2.6 % (2-11); Neutrophils Absolute Auto 5.3 x10*3/uL (2.0-8.3); Neutrophils Percent Auto 70.8 % (45-73); Platelet Count 547 X10*3/uL (160-400); Red Blood Count 5.17 X10*6/uL (4.20-5.50); Red Cell Distribution Width 19.8 % (11.0-16.0); White Blood Count 7.4 X10*3/uL (4.8-10.8)
[2024-07-04 07:11] LABS: Anion Gap 12 (12-20); Blood Urea Nitrogen 14 mg/dL (9-16); Calcium 8.4 mg/dL (8.4-10.2); Carbon Dioxide 25 mmol/L (22-29); Chloride 110 mmol/L (96-108); Estimated Glomerular Filt Rate > 60; Glucose Random 108 mg/dL (60-115); Potassium 3.8 mmol/L (3.3-5.1); Sodium 143 mmol/L (135-145)
== END 2024-07-04 07:01 | disposition home or self-care (01) ==
LOC: HO.MMNH3L 07:00
PROVIDERS: Visit Provider Family Medicine
DX: J44.9 Chronic obstructive pulmonary disease, unspecified (principal); F41.1 Generalized anxiety disorder; R41.89 Other symptoms and signs involving cognitive functions and awareness
CPT/HCPCS: 36415; 80048; 85025

== ENCOUNTER 2024-07-11 06:32 | Outpatient (REF) | payer MEDICARE, SELFPAY ==
[2024-07-11 06:06] LABS: MANUAL DIFF FLAG NO
[2024-07-11 06:19] LABS: Basophils Absolute Auto 0.1 X10*3/uL (0.0-0.2); Basophils Percent Auto 1.4 % (0-2); Eosinophils Absolute Auto 0.2 X10*3/uL (0.0-0.4); Eosinophils Percent Auto 1.7 % (0-4); Hematocrit 39.5 % (37.0-47.0); Hemoglobin 11.9 g/dl (12.0-16.0); Imm Gran Abs Auto 0.07 X10*3/uL (0.00-0.03); Imm Gran Pct Auto 0.8 % (0.0-0.4); Lymphocytes Absolute Auto 2.2 X10*3/uL (1.2-4.9); Lymphocytes Percent Auto 23.4 % (20-40); Mean Corpuscular HGB Conc 30.1 g/dl (31.0-35.0); Mean Corpuscular Hemoglobin 22.5 pg (27.0-33.0); Mean Corpuscular Volume 74.5 fL (80.0-98.0); Mean Platelet Volume 10.2 fL (9.4-12.3); Monocytes Absolute Auto 0.4 X10*3/uL (0.1-1.2); Monocytes Percent Auto 4.7 % (2-11); Neutrophils Absolute Auto 6.2 x10*3/uL (2.0-8.3); Platelet Count 584 X10*3/uL (160-400); Red Cell Distribution Width 19.9 % (11.0-16.0); White Blood Count 9.2 X10*3/uL (4.8-10.8)
[2024-07-11 06:42] LABS: Anion Gap 13 (12-20); Blood Urea Nitrogen 13 mg/dL (9-16); Calcium 8.5 mg/dL (8.4-10.2); Carbon Dioxide 22 mmol/L (22-29); Chloride 109 mmol/L (96-108); Estimated Glomerular Filt Rate > 60; Glucose Random 116 mg/dL (60-115); Potassium 3.3 mmol/L (3.3-5.1); Sodium 141 mmol/L (135-145)
== END 2024-07-11 06:33 | disposition home or self-care (01) ==
LOC: HO.MMNH3L 06:32
PROVIDERS: Visit Provider Family Medicine
DX: J44.9 Chronic obstructive pulmonary disease, unspecified (principal); F41.1 Generalized anxiety disorder; R41.89 Other symptoms and signs involving cognitive functions and awareness
CPT/HCPCS: 36415; 80048; 85025

== ENCOUNTER 2024-07-18 06:18 | Outpatient (REF) | payer MEDICARE, SELFPAY ==
[2024-07-18 06:03] LABS: MANUAL DIFF FLAG NO
[2024-07-18 06:38] LABS: Basophils Absolute Auto 0.2 X10*3/uL (0.0-0.2); Basophils Percent Auto 2.5 % (0-2); Eosinophils Absolute Auto 0.3 X10*3/uL (0.0-0.4); Eosinophils Percent Auto 3.2 % (0-4); Hematocrit 37.1 % (37.0-47.0); Hemoglobin 11.4 g/dl (12.0-16.0); Imm Gran Abs Auto 0.04 X10*3/uL (0.00-0.03); Imm Gran Pct Auto 0.5 % (0.0-0.4); Lymphocytes Percent Auto 25.8 % (20-40); Mean Corpuscular HGB Conc 30.7 g/dl (31.0-35.0); Mean Corpuscular Hemoglobin 22.8 pg (27.0-33.0); Mean Corpuscular Volume 74.2 fL (80.0-98.0); Mean Platelet Volume 10.9 fL (9.4-12.3); Monocytes Absolute Auto 0.5 X10*3/uL (0.1-1.2); Monocytes Percent Auto 6.4 % (2-11); Neutrophils Absolute Auto 4.8 x10*3/uL (2.0-8.3); Neutrophils Percent Auto 61.6 % (45-73); Platelet Count 562 X10*3/uL (160-400); Red Cell Distribution Width 20.5 % (11.0-16.0); White Blood Count 7.7 X10*3/uL (4.8-10.8)
[2024-07-18 07:44] LABS: Anion Gap 14 (12-20); Blood Urea Nitrogen 15 mg/dL (9-16); Calcium 8.3 mg/dL (8.4-10.2); Carbon Dioxide 21 mmol/L (22-29); Chloride 110 mmol/L (96-108); Estimated Glomerular Filt Rate > 60; Glucose Random 101 mg/dL (60-115); Potassium 3.5 mmol/L (3.3-5.1); Sodium 141 mmol/L (135-145)
== END 2024-07-18 06:19 | disposition home or self-care (01) ==
LOC: HO.MMNH3L 06:18
PROVIDERS: Visit Provider Family Medicine
DX: J44.9 Chronic obstructive pulmonary disease, unspecified (principal); F41.1 Generalized anxiety disorder; R41.89 Other symptoms and signs involving cognitive functions and awareness
CPT/HCPCS: 36415; 80048; 85025

== ENCOUNTER 2024-10-13 05:35 | Outpatient (REF) | payer MEDICARE, SELFPAY ==
[2024-10-13 05:38] LABS: MANUAL DIFF FLAG NO
--- OUTSIDE RECORDS SUMMARY | 2024-10-13 05:38 | XMS_ITS | Data Portability ---
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 Role Phone ANTON JEWELL Primary Care Provider [phone] ANTON JEWELL Referring Provider ANGE BARROW Primary Care Provider [phone] Assessment Encounter Date Assessment Date Assessment LastModified by Organization Details LastModified Time 04/27/2020 04/27/2020 04/04/20 left L3-4, L4-5 & L5-S1 medial branch RFA with 100% relief 02/08/20 left L3-4, L4-5 & L5-S1 diagnostic medial branch block with 100% relief 12/21/19 left L3-4, L4-5 & L5-S1 diagnostic medial branch block with 98% relief 09/19/19 Caudal SHOLA with 95% relief for 2 weeks 07/08/19 left L5-S1 TLESI & TFESI with 70% relief 03/03/19 left L5-S1 TLESI & TFESI with 95% relief Physical Therapy: [facility] 04/2019 Surgeries: T11, L2, and L4 kyphoplasty. Case of 69 y/o female who is being followed due to lumbar back pain with left lower extremity radiculopathy (up to glute) secondary to degenerative disease. She comes today for follow-up after undergoing left L3-4, L4-5 & L5-S1 medial branch RFA on 04/04/20 without complications. She refers 100% relief. Patient however with fall on Thursday for which she is is appearing seeing acute pain that she describes as constant, achy/sharp, 10/10 mainly across back and radiating down bilateral lower extremities (posterior hip/glutes). Pain worsens with prolonged activity (sitting/sit to stand / standing / walking / bending) affecting her ADLs. Symptoms improve with rest, sitting and medication. Lumbar MRI 08/11/18: multilevel spondylotic changes with disc space narrowing, disc bulges, ligamentum flavum hypertrophy and posterior facet degenerative changes resulting in central canal narrowing at L2-3, L3-4 and L-5 and multilevel neural foraminal narrowing. multiple compression deformities in the lower thoracic and lumbar spine which were partially visualized on a thoracic CT scan from october 2017. Patient with moderate pain currently interfering with activities of daily life for which she has tried and failed conservative therapy for approximately 6-8 weeks to include rest, ice, heat, medications (anti-inflammator y, analgesics; after risks vs benefits discussed, patient agreed to undergo IM injection with lidocaine/toradol /depomedrol for some relief until she is able to undergo procedure. Informed consent was obtained. Procedure performed without complications. For further details please refer to procedure note. The patient was instructed to apply ice over the injection site(s) for 10-15 minutes every 2-4 hours for the next twenty-four to forty-eight hours. The patient was also instructed to contact us if there are any issues after the procedure) and physical therapy. Patient currently interested in conservative management at this time. In view of above, and prior successful epidural injection (which resulted in at least 50% relief), patient benefits from repeating another epidural injection under fluoroscope guidance with conscious sedation (due to needle phobia / poor tolerance). Patient educated about the nature of her condition. All patients questions answered to the best of my ability. Will follow up in approximately two weeks after procedure for re-assessment. deja Not available 04/27/2020 10:08:48 05/15/2020 05/15/2020 Impression- 1. Subacute T12 compression fracture 2. History of previous T11, L2 and L4 kyphoplasty 3. Multiple thoracolumbar fractures 4. Increased thoracic pain with recent injury Treatment plan-I spoke with Dr. Jewell on the phone today and he requested I look at this patient's MRI and potentially get her in [place] for another kyphoplasty as she is in severe pain. I reviewed the MRI done at [facility] which shows a subacute T12 fracture below her previous T11 kyphoplasty and we will work to add her onto the schedule this week for T12 kyphoplasty plus or minus epidural injection. [email or web address] Not available 05/15/2020 13:17:03 05/17/2020 05/17/2020 Thoracic kyphoplasty Pre/postop diagnosis: 1. T12 katia fracture. 2. Thoracic pain and lumbar pain 3. Osteoporosis. Procedure: 1. [id number] 2. L3-4 translaminar epidural injection Surgeon: Gorge Edward MD Anesthesia: Local with IV sedation Preoperative antibiotic: Ancef 2 g EBL: Less than 50 cc Indications for procedure: The patient was seen in the preoperative area and surgical site marked. Discussed procedure in detail including inherent risk-pain infection bleeding and risk of cement extravasation. The patient understands the inherent risks benefits and alternatives to the procedure and wished to proceed. Description of procedure: The patient was positioned prone on the operative table. Care is taken to put all pressure points. The thoracic region was prepped and draped sterile fashion. We injected local overlying the left T12 pedicle. Then carefully guided Jamshidi trocar transpedicular using AP and lateral imaging to confirm good location. We applied guidewire followed by the drill working cannula and the balloon. We next carefully injected approximately 4-5 cc cement getting excellent fill throughout the T12 vertebral body. Next at L3-4 we took a translaminar approach with 20-gauge needle. We confirmed epidural location using loss of his technique Omnipaque contrast and then injected 3 cc 1% lidocaine, triamcinolone any grams preserved free. Final x-rays were saved in AP and lateral view for archive. Band aids were applied over the incisions and the patient was taken recovery room in stable condition. Postoperative plan-the patient will be allowed to mobilize as tolerated but will limit bending, lifting and twisting for the next few weeks. Thoracic kyphoplasty Pre/postop diagnosis: 1. [thoracic fracture] subacute compression fracture. 2. Thoracic pain. 3. Osteoporosis. Procedure: [T1, T2, T3, T4, T5, T6, T7, T8, T9, T10, T11, T12] kyphoplasty [with biopsy] Surgeon: Gorge Edward MD Anesthesia: Local with IV sedation Preoperative antibiotic: [Ancef 2 g, Ancef 1 g, clindamycin 600 mg, vancomycin] EBL: Less than 50 cc Indications for procedure: The patient was seen in the preoperative area and surgical site marked. Discussed procedure in detail including inherent risk-pain infection bleeding and risk of cement extravasation. The patient understands the inherent risks benefits and alternatives to the procedure and wished to proceed. Description of procedure: The patient was positioned prone on the operative table. Care is taken to put all pressure points. The thoracic region was prepped and draped sterile fashion. [dictated] Final x-rays were saved in AP and lateral view for archive. Band aids were applied over the incisions and the patient was taken recovery room in stable condition. Postoperative plan-the patient will be allowed to mobilize as tolerated but will limit bending, lifting and twisting for the next few weeks. [email or web address] Not available 05/17/2020 07:32:04 Plan of Treatment Reminders Order Date Submit Date Provider Last Modified By Organization Details Last Modified Time Details Appointments None recorded. Lab None recorded. Referral None recorded. Procedures epidural steroid injection, caudal (PROC) - Caudal SHOLA with conscious sedation 2019 [email or web address] Irene Chu MD, [address] [place] [address], [facility] [address], [address], 0 11:02:47 Surgeries kyphoplast y, thoracic (SURG) 2019 [email or web address] Gorge Edward MD, [address] [place] [address], [address], [place], [address], 0 13:47:09 Imaging None recorded. Medication Orders None recorded. Patient TargetsNo targets recorded. Patient InstructionsNo instructions recorded. Reason for Referral None Reported. Results Created Date Observation Date Name Description Value Unit Range Abnormal Flag Note LastModifiedBy Organization Detail LastModifiedTime 05/15/20 20 05/09/2020 MRI, thora cic spine , w/o contr ast No observ ation record ed. [email or web address] Not Available 09/2019 15:17:08 Result Notes None recorded. Problems Name Problem SNOMED Code Status Onset Date Resolution Date Notes Provider Name and Address Organization Details Recorded Time Low back pain 137665916 Active 2018 Meri Mejia null [place] - [facility] 9 10:19:48 Thoracic back pain 746667180 Active Shameka Myers null [place] - [facility] 9 09:43:28 Fracture of humerus 86327341 Active 2013 Spiral moderately displaced left humerus fracture. Roro hernandez [place] - [facility] 4 15:36:34 Problem Notes None recorded. Procedures Surgical History Date Name Laterality Status Provider Name and Address Organization Details Recorded Time 07/23/19 21 .Imaging Interpretation completed Sandra Hernández APRN-HAI [address] [place] [address],[address], [place], [address], [place] - [facility] 07/23/2020 08:53:37 05/23/20 20 .Imaging Interpretation completed RAFAL Perrin [address] [place] [address],[address], [place], [address], [place] - [facility] 05/23/2020 10:26:09 05/17/20 20 procedure completed Birgit Sanchez [place] - [facility] 05/17/2020 07:04:13 04/27/20 20 IM Injection Combo (Depo/Tor/Lido) completed IRENE KELLER MD [address] [place] [address],[address], [place], [address], [place] - [facility] 04/27/2020 09:44:32 04/04/20 20 injection completed Julianne Horowitz [place] - [facility] 04/04/2020 07:56:59 02/08/20 20 injection completed Elizabeth Casas [place] - [facility] 02/08/2020 08:31:07 12/21/19 20 injection completed Elizabeth Casas [place] - [facility] 12/21/2019 08:52:11 09/19/19 20 injection completed Riki Hitchcock [place] - [facility] 09/19/2019 08:43:28 07/08/20 19 procedure completed Birgit Sanchez [place] - [facility] 07/08/2019 13:22:54 03/03/20 19 Back/Neck/Spine Surgery completed IRENE KELLER MD [address] [place] [address],[address], [place], [address], [place] - [facility] 03/03/2019 11:01:38 10/20/19 19 .Imaging Interpretation completed SAMSON SIERRA [address] [place] [address],[address], [place], [address], [facility] - [facility] 10/19/2018 10:04:13 09/28/19 19 Back/Neck/Spine Surgery completed Lennox Bullock [place] - [facility] 09/27/2018 09:34:37 09/23/19 19 .Imaging Interpretation completed SAMSON IBARRA [address] [place] [address],[address], [place], [address], [facility] - [facility] 09/24/2018 09:28:41 12/19/19 18 Other completed SAMSON IBARRA [address] [place] [address],[address], [place], [address], [facility] - [facility] 09/24/2018 09:10:58 06/01/20 07 procedure on knee completed SAMSON IBARRA [address] [place] [address],[address], [place], [address], [facility] - [facility] 09/24/2018 09:09:13 07/13/19 00 Other completed SAMSON IBARRA [address] [place] [address],[address], [place], [address], [facility] - [facility] 09/24/2018 09:08:49 Gastric Bypass completed Michelle Perez [place] - [facility] 12/12/2013 15:55:51 Imaging Results Imaging Date Name Status LastModified by Organiz ation Details LastModified Time 05/09/2020 MRI, thoracic spine, w/o contrast completed [email or web address] Information not available 05/15/2020 15:17:08 Procedure Notes None recorded. Medical Equipment None Reported. Allergies No known drug allergies Medications Name Sig Start Date Stop Date Status Note LastModified by Organization Details LastModified Time cyclobenza manas 10 mg tablet TAKE 1 TABLET BY MOUTH TWICE DAILY NEEDED active Not Available Not Available No t Available clonidine 0.1 mg/24 hr weekly transderma l patch Apply 1 patch every week by transderm al route. active Not Available Not Available No t Available hydrocodon e 5 mg-acetami nophen 325 mg tablet TAKE 1 TABLET BY MOUTH THREE TIMES DAILY NEEDED FOR PAIN active Not Available Not Available No t Available naproxen 250 mg tablet TAKE 1 TABLET BY MOUTH TWICE DAILY WITH A MEAL active Not Available Not Available No t Available pantoprazo le 40 mg intravenou s solution Inject by intraveno us route. active Not Available Not Available No t Available Depo-Medro l 80 mg/mL suspension for injection Take 1 mL by injection route. 01/11 completed Not Available Not Available Not Available meloxicam 7.5 mg tablet TAKE 1 TABLET BY MOUTH ONCE DAILY active Not Available Not Available No t Available losartan 100 mg-hydroch lorothiazi de 25 mg tablet Take 1 tablet every day by oral route. active Not Available Not Available No t Available trazodone 100 mg tablet TAKE 1 TABLET BY MOUTH EVERY DAY AT BEDTIME active Not Available Not Available No t Available ropinirole 0.25 mg tablet TAKE 1 TABLET BY MOUTH AT BEDTIME active Not Available Not Available No t Available pantoprazo le 40 mg tablet,del ayed release TAKE 1 TABLET BY MOUTH ONCE DAILY active Not Available Not Available No t Available prednisone 50 mg tablet TAKE 1 TABLET BY MOUTH ONCE DAILY FOR 5 DAYS active Not Available Not Available No t Available oxycodone 5 mg capsule Take 1 capsule every 6 hours by oral route. 09/22 completed Not Available Not Available Not Available lidocaine HCl 20 mg/mL (2 %) injection solution Take 1 mL by injection route. 01/11 completed Not Available Not Available Not Available ketorolac 60 mg/2 mL intramuscu lar solution Inject 2 mL by intramusc ular route. 01/11 completed 15mg per unit. For exampl e: 60mg = 4 units Not Available Not Available Not Available losartan 100 mg tablet TAKE 1 TABLET BY MOUTH ONCE DAILY 05/23 completed Not Available Not Available Not Available neomycin 3.5 mg/g-polym yxin B 10,000 unit/g-dex ameth 0.1 % eye oint APPLY 1 OINTMENT 4 TIMES DAILY INTO EACH EYE 05/23 completed Not Available Not Available Not Available bupropion HCl XL 300 mg 24 hr tablet, extended release Take 1 tablet every day by oral route. 09/22 completed Not Available Not Available Not Available aspirin active Not Available Not Avail able Not Available Tylenol active Not Available Not Avail able Not Available trazodone 09/22 completed Not Available Not Available Not Available Vitamin active Not Available Not Avail able Not Available clonidine (PF) 1,000 mcg/10 mL (100 mcg/mL) epidural solution Take by epidural route. 09/22 completed Not Available Not Available Not Available Vitals Date Recorded Body height Body temperature Oxygen saturation Oxygen saturation in Arterial blood by Pulse oximetry Heart rate Pain severity - 0-10 verbal numeric rating [Score] - Reported Systolic blood pressure Diastolic blood pressure Provider Name and Address Organization Details Last Updated DateTime 0 170.18 cm 97.9 [degF] 97 % 97 % 90 /min 10 189 mm[Hg] 97 mm[Hg] Corrie Greenwood [facility] 0 09:20:59 Date Recorded Body height Provider Name an d Address Organization Details Last Updated DateTime 05/15/2020 170.18 cm Gorge turner MD [address] [facility],[address], [place], [address], [facility] 05/15/2020 13:18:58 Date Recorded Body height Body temperature Body mass index (BMI) Body weight Pain severity - 0-10 verbal numeric rating [Score] - Reported Respiratory rate Oxygen saturation Oxygen saturation in Arterial blood by Pulse oximetry Heart rate Systolic blood pressure Diastolic blood pressure Provider Name and Address Organization Details Last Updated DateTime 0 170.18 cm 98.1 [degF] 26.5 kg/m2 13287.1 1 g 9 16 /min 97 % 97 % 92 /min 170 mm[Hg] 100 mm[Hg] Birgit Sanchez [facility] 0 07:03:28 Date Recorded Body height Body temperature Pain severity - 0-10 verbal numeric rating [Score] - Reported Heart rate Oxygen saturation Oxygen saturation in Arterial blood by Pulse oximetry Respiratory rate Systolic blood pressure Diastolic blood pressure Provider Name and Address Organization Details Last Updated DateTime 0 170.18 cm 97.1 [degF] 0 97 /min 98 % 98 % 18 /min 174 mm[Hg] 93 mm[Hg] Suzi Marshall [facility] 0 08:50:28 Date Recorded Body height Body temperature Oxygen saturation Oxygen saturation in Arterial blood by Pulse oximetry Heart rate Body mass index (BMI) Body weight Systolic blood pressure Diastolic blood pressure Provider Name and Address Organization Details Last Updated DateTime 1 170.18 cm 97.4 [degF] 98 % 98 % 90 /min 26.3 kg/m2 75632.5 2 g 150 mm[Hg] 95 mm[Hg] Lu MARTINEZ [place] - [facility] 1 08:27:49 Social History Question Answer Notes LastModified by Organizat ion Details LastModified Time Tobacco Smoking Status Current Every Day Smoker Not Available [facility] 05/15/2020 03:44:21 What Is Your Level Of Alcohol Consumption? None [id number] Information not available 05/15/2020 Are You Blind Or Do You Have Difficulty Seeing? No [id number] Information not available 05/15/2020 In The 14 Days Before Symptom Onset, Have You Had Close Contact With A Laboratory-confir med COVID-19 While That Case Was Ill? No [id number] Information not available 05/15/2020 If Patient Spent Time In [facility] - Does The Patient Live In [facility]? [facility] Information not available 11/01/2019 In The 14 Days Before Symptom Onset, Have You Had Close Contact With A Person Who Is Under Investigation For COVID-19 While That Person Was Ill? No [id number] Information not available 05/15/2020 In The 14 Days Before Symptom Onset, Did The Patient Spend Time In [facility]? No [facility] Information not available 11/01/2019 Have You Been To An Area Known To Be High Risk For COVID-19? No [id number] Information not available 05/15/2020 Are You Currently Employed? No [id number] Information not available 05/15/2020 Are You Deaf Or Do You Have Serious Difficulty Hearing? No [id number] Information not available 05/15/2020 Which Of Your Hands Is Dominant? Right [id number] Information not available 05/15/2020 Door Cutter? No Information no t available 12/12/2013 Clinical Dental Technician? No Information no t available 12/12/2013 Marital Status Unknown Informatio n not available 12/12/2013 What Was The Date Of Your Most Recent Tobacco Screening? 02/02/2019 [id number] Information not available 05/15/2020 How Much Tobacco Do You Smoke? No Pt States She Is Smoking Roughly About 4 Cigs A Day [id number] Information not available 05/15/2020 Do You Use Any Illicit Or Recreational Drugs? No [id number] Information not available 05/15/2020 Sex: Unknown Functional Status Question Answer Note LastModified by Organization D etails LastModified Time Do you have difficulty walking or climbing stairs? Yes [id number] Information not available 05/15/2020 Do you have difficulty doing errands alone? No [id number] Information not available 05/15/2020 Do you have difficulty dressing or bathing? No [id number] Information not available 05/15/2020 Mental Status Question Answer Note LastModified by Organization D etails LastModified Time Do you have difficulty concentrating, remembering or making decisions? No [id number] Information no t available 05/15/2020 Family History Relationship Description Onset Age of this Age Resolved Age Notes LastModified by Organization Details LastModified Time Father Non-Hodgkin' s lymphoma (clinical) Not available 12/22 09:45:32 Mother History of cerebrovascu lar accident Not available 06/2014 09:45:32 Medical History Condition Response Coronary Artery Disease N Gout N Blood Transfusion N Head Trauma/Injury N Emphysema N COPD N Depression N PVD N Vascular Disease N Oxygen Use N Drug Abuse N Headaches/Migraines N Do you have a pacemaker? N Anxiety Disorder N Do you have Sleep Apnea? N Hyperlipidemia/ High Cholesterol N Blood Clot(s) or DVT(s) N Acid Reflux (GERD) N Have you ever had a cardiac catherizatio n? N Cancer N Stroke N Have you ever had open heart surgery? N Crohn's Disease N Alcohol Overuse/Alcohol Abuse N Back Injury N Liver Disease N Rheumatoid Arthritis N Schizophrenia N Hypertension/High Blood Pressure Y Atrial fibrillation N Fibromyalgia N Autoimmune disorders N Have you ever had a echocardiogram? N Mumps N Scoliosis N Parkinson's Disease N Heart Disease/Heart Problems N Lyme Disease N Kidney Problems N Extreme Weight Gain N Migraines N Angina N Thyroid Problems N Brain Tumors N Alzheimers N DVT N ADD/ADHD N Neck Pain N Anemia N Thyroid Disease Hypo/Hyper N Multiple Sclerosis N Back Pain N Brain Injury N Do you use a C-pap machine? N Heart Attack (MD) N Mental Illness N Extreme Weight Loss N Have you ever had a stress test? N Difficulty swallowing N Bleeding Disorder N Seizures/Epilepsy N Tuberculosis N Cerebral Palsy N AIDS/HIV N No Past Medical History N Do you have cardiac stents? N Dementia N Asthma N Amputation N Lupus N Diabetes Type II N Substance Abuse N Peripheral Vascular Disease N Hepatitis N Diabetes Type I N Aneurysm N Prior/Current MRSA/Staph infection N Neuropathy N Pulmonary Embolism N Osteoporosis N Gynecological HistoryNo gynecological history recorded. Obstetrics History GPAL:G 0 P 0 0 0 0 Past Encounters Encounter ID Performer Location Encounter Start Date Encounter Closed Date Diagnosis/Indication Diagnosis SNOMED-CT Code Diagnosis ICD10 Code Diagnosis Note [id number] Blake Oneal [facility] Main Office [address] [facility] [address] [place] [address] 12/22/2013 09:12:20 12/26/2013 15:30:27 Fracture of humerus 93347883 [id number] SAMSON IBARRA [facility] Main [address] [place] [address],[address] [place] [address] 09/22/2018 07:29:35 09/22/2018 17:05:27 Low back pain 028537462 M54.5 Lumbar radiculopathy 128 M54.16 [id number] SAMSON IBARRA [facility] Main [address] [place] [address],[address] [place] [address] 09/24/2018 08:57:30 09/24/2018 09:40:12 Low back pain 210119586 M54.5 multiple compressio n fractures, T and L spine Posterior compartment low back pain 582213189 M54.5 Thoracic back pain 62013 8004 M54.6 Lumbar radiculopathy 128 M54.16 [id number] Gorge Edward MD [facility] Procedure Room [address] [place] [address],[address] [place] [address] 09/27/2018 09:10:21 09/27/2018 13:02:13 [id number] SAMSON SIERRA [facility] Main [address] [place] [address],[address] [place] [address] 10/05/2018 08:52:26 10/05/2018 10:09:33 Low back pain 113167809 M54.5 Lumbar radiculopathy 128 194105 M54.16 Thoracic back pain 62248 8004 M54.6 [id number] SAMSON SIERRA [address] [place] [address] 10/19/2018 08:03:21 10/19/2018 09:03:49 Low back pain 512692672 M54.5 Lumbar radiculopathy 128 669270 M54.16 [id number] SAMSON SIERRA [address] [place] [address] 11/11/2018 07:48:23 11/11/2018 08:54:35 Low back pain 031646902 M54.5 Lumbar radiculopathy 128 987538 M54.16 [id number] [address]andy Amaya [address] [place], [place] [address] 02/02/2019 09:47:51 02/02/2019 10:19:11 Low back pain 845735983 M54.5 Lumbar radiculopathy 128 718096 M54.16 [id number] IRENE KELLER MD [facility] Procedure Room [address] [place] [address] 03/03/2019 08:06:43 03/03/2019 09:56:40 Chronic low back pain 872288997 M54.5 Lumbar radiculopathy 128 M54.16 [id number] IRENE KELLER MD [place] [address] 03/28/2019 09:17:16 03/28/2019 09:46:36 Chronic low back pain 462592891 M54.5 Lumbar radiculopathy 128 073603 M54.16 [id number] IRENE KELLER MD [place] [address] 06/13/2019 07:58:13 06/13/2019 08:29:06 Low back pain 534148982 M54.5 Lumbar radiculopathy 128 M54.16 [id number] IRENE KELLER MD [facility] Procedure Room [address] [place] [address],[address] [place] [address] 07/08/2019 12:43:24 07/08/2019 14:17:51 Chronic low back pain 273101914 M54.5 Lumbar radiculopathy 128 107832 M54.16 [id number] IRENE KELLER MD [address] [place] [address] 1 07/21/2019 08:23:30 07/21/2019 09:26:44 Chronic low back pain [id number] M54.5 Lumbar radiculopathy 128 791103 M54.16 [id number] IRENE KELLER MD [address] [place] [address] 1 08/16/2019 08:07:07 08/16/2019 10:35:00 Low back pain [id number] M54.5 Lumbar radiculopathy 128 608301 M54.16 [id number] IRENE KELLER MD [facility] Procedure Room [address] [place] [address],[address] [place] [address] 1 09/19/2019 07:47:43 09/19/2019 09:18:26 Lumbar radiculopathy [id number] M54.16 Chronic low back pain 27 8591076 M54.5 [id number] IRENE KELLER MD [address] [place] [address] 1 11/01/2019 10:01:27 11/01/2019 10:41:04 Low back pain [id number] M54.5 Arthropath y of lumbar facet joint 307779507 M46.96 [id number] IRENE KELLER MD [facility] Procedure Room [address] [place], [place] [address]Suit e [address] [place], [place] [id number] 1 12/21/2019 08:22:02 12/21/2019 10:27:45 Chronic low back pain [id number] M54.5 Arthropath y of lumbar facet joint 347881293 M46.96 [id number] IRENE KELLER MD [facility] Main [address] [place], [place] [address]Suit e [address] [place] [address] 1 12/23/2019 08:26:03 12/23/2019 08:57:38 Low back pain [id number] M54.5 Arthropath y of lumbar facet joint 163611260 M46.96 [id number] IRENE KELLER MD [facility] Procedure Room [address] [place] [address] 1 02/08/2020 08:02:29 02/08/2020 09:15:40 Chronic low back pain [id number] M54.5 Arthropath y of lumbar facet joint 942942222 M46.96 [id number] IRENE KELLER MD [place] [address] 1 02/10/2020 11:27:45 02/10/2020 12:25:15 Low back pain 006850972 M54.5 Arthropath y of lumbar facet joint 866680432 M46.96 [id number] IRENE KELLER MD [facility] Procedure Room [address] [place] [address] 1 04/04/2020 07:25:19 04/04/2020 10:37:27 Chronic low back pain 017178446 M54.5 Arthropath y of lumbar facet joint 129511567 M46.96 [id number] IRENE KELLER MD [facility] Main [address] [place] [address] 1 04/27/2020 09:01:48 04/27/2020 09:47:44 Low back pain 400122386 M54.5 Lumbar radiculopathy 128 570969 M54.16 [id number] Gorge Edward MD [facility] Main [address] [place] [address] 1 05/15/2020 13:15:42 05/15/2020 14:06:11 Compression fracture of thoracic vertebra [id number] 104 M48.54XG T-11&L-4 (same bottle) [id number] Gorge Edward MD [facility] Procedure Room [address] [place], [place] [address]S[address] [place] [address] 05/17/2020 06:51:44 05/18/2020 10:14:45 [id number] Sandra Hernández APRN-MUNICIPAL SERVICES MANAGER [facility] [address] [facility],[address] [place] [address] 05/23/2020 08:42:26 05/23/2020 09:10:42 Low back pain [id number] M54.5 Thoracic back pain 25014 8004 M54.6 Wedge frac ture of thoracic vertebra 471987234 S22.000D T12 [id number] Sandra Hernández APRN-MUNICIPAL SERVICES MANAGER [facility] Main [address] [facility],[address] [place] [address] 07/23/2020 08:08:02 07/23/2020 08:53:22 Low back pain 304207355 M54.5 Thoracic back pain 47240 8004 M54.6 Health Concerns Section Related Observation LastModified by Organization Detai ls LastModified Time None Recorded Concern Status LastModified by Organization Details LastModified Time None Recorded Advance Directives Directive None Recorded Payers Encounter Date Sequence Insurance Name Policy Number Policy Burdick Covered Member ID Burdick Member ID Guarantor Name 04/27/2020 1 [place] Hillary A [place] [id number] Hillary A [place] 04/27/2020 2 [facility] (MEDICARE SUPPLEMENT) Hillary A Naila [id number] Hillary A Naila 05/15/2020 1 [place] Hillary A [place] [id number] Hillary A [place] 05/15/2020 2 [facility] (MEDICARE SUPPLEMENT) Hillary A Naila [id number] Hillary A Naila 05/17/2020 1 [place] Hillary A [place] [id number] Hillary A [place] 05/17/2020 2 [facility] (MEDICARE SUPPLEMENT) Hillary A Naila [id number] Hillary A [place] 05/23/2020 1 [place] Hillary Turner [employer] [id number] Hillary Turner Naila 05/23/2020 2 [facility] (MEDICARE SUPPLEMENT) Hillary Turner [place] [id number] Hillary Turner [place] 07/23/2020 1 [place] Hillary A [place] [id number] Hillary A [place] 07/23/2020 2 [facility] (MEDICARE SUPPLEMENT) Hillary Turner [place] [id number] Hillary Turner Naila Notes Date Note Type Note Provider Name and Address Organization Details Recorded Time 04/27/2020 text/html L-spine OrthoReported bypatient.Location: left; medial; deep; radiating to LT Hip Quality:aching; stabbing; sharp; deep; constant Severity:mild; pain level 10/10; worst pain 10/10 Duration:4 years; continuous since onset Timing:morning; nighttime Context:cannot identify; pt states she has been having back issues on and off for about 4 years and she can not identify what started her problem Alleviating Factors:sitting; position change; heat; rest Aggravating Factors:standing; lying down; walking; lifting; carrying; twisting; bending/squatting; pushing/pulling; throwing; ROM; getting out of bed; going from sit to stand; upstairs; downstairs Associated Symptoms:no weakness; no numbness; no tingling; no swelling; no redness; no warmth; no ecchymosis; no catching/locking; no popping/clicking; no buckling; no grinding; no instability; no drainage; no fever; no chills; no weight loss; no change in bowel/bladder habits;radiation down leg(Radiating to LT Hip) Previous Surgery:none Prior Imaging:x ray; MRI Previous Injections:helped significantly (07/08/19 Lt L5/S1 Tl /TF SHOLA, MB, 70% relief) Previous PT:helped significantly; pt states she had physical therapy for her balance. She attended [facility] PT last in 2018. She completed six months, going 3X weekly. Case of 69 y/o female who is being followed due to lumbar back pain with left lower extremity radiculopathy (up to glute) secondary to degenerative disease. She comes today for follow-up after undergoing left L3-4, L4-5 & L5-S1 medial branch RFA on 04/04/20 without complications. She refers 100% relief. Denies any red flag symptoms. IRENE KELLER MD [address] [facility],[address], [place], [address], [facility] 04/27/2020 10:09:15 05/23/2020 text/html 70-year-old fema le here for follow-up first postop visit after T12 kyphoplasty by Dr. Edward. Patient rates pain 0/10 on VAS. She says this procedure greatly helped her pain. She said kyphoplasties in the past at T11, L2 4. Patient had fallen and sustained a fracture at T12 requiring kyphoplasty to help with her pain. Patient has been able to walk but feels her left leg is weaker. She has done physical therapy in the past and has home exercise directions that she would like to do once she is healed from procedure to help her gait and balance and leg strength.Denies shortness of breath or chest pain no fever chills RAFAL Perrin [address] [facility],[address], [place], [address], [facility] 05/23/2020 10:31:13 07/23/2020 text/html 70-year-old fema le here for 2-month follow-up status post T12 kyphoplasty. Pain score 0/10 VAS. Patient states overall she is doing very well and is able to ambulate without pain. She did want to let me know that in May she had 3 falls. She has not fallen since. She attributes the falls to walking too fast and rushing. Since then she has been slowing down and taking her time with getting up standing and walking. She denies any numbness tingling or weakness. RAFAL Perrin [address] [facility],[address], [place], [address], [facility] 07/23/2020 08:54:39 OBGyn Episode No OBEpisode recorded.
--- OUTSIDE RECORDS SUMMARY | 2024-10-13 05:38 | XMS_ITS | Data Portability ---
Author Organization [facility], Main Office Address [address] [facility] [address] [place] [address] Care Team Providers Care Bellhop Captain Name Role Phone MARCIO DONG 3RD FLOOR OTHER Assessment Encounter Date Assessment Date Assessment LastModified by Organization Details LastModified Time 06/20/2024 06/20/2024 labs 06/20:Na 139-K 3.4-Bun 18-cr 0.8-Mag 1.9- wbc 10.0-hgb 11.5-hct 36.8-plt 466- Not available 06/20/2024 11:55:13 07/01/2024 07/01/2024 labs 06/20:Na 139-K 3.4-Bun 18-cr 0.8-Mag 1.9- wbc 10.0-hgb 11.5-hct 36.8-plt 466- Not available 07/01/2024 12:35:42 07/04/2024 07/04/2024 labs 06/20:Na 139-K 3.4-Bun 18-cr 0.8-Mag 1.9- wbc 10.0-hgb 11.5-hct 36.8-plt 466- Not available 07/04/2024 12:29:54 10/09/2024 10/09/2024 12: labs ordered for 06/20 bmp with magnesium level. Not available 10/10/2024 09:36:46 Plan of Treatment Reminders Order Date Submit Date Provider Last Modified By Organization Details Last Modified Time Details Appointments None record ed. Lab None record ed. Referral None record ed. Procedures None record ed. Surgeries None record ed. Imaging None record ed. Medication Orders None record ed. Patient TargetsNo targets recorded. Patient InstructionsNo instructions recorded. Reason for Referral None Reported. Problems Name Problem SNOMED Code Status Onset Date Resolution Date Notes Provider Name and Address Organization Details Recorded Time Recurrent falls 328091501 Active 2022 JUAN MANUEL MORALES NP [address], [address], [place], [address], [facility] 3 11:13:43 Osteoarthr itis 574025896 Active 2022 JUAN MANUEL MORALES NP [address], [address], [place], [address], [facility] 3 11:13:48 Chronic obstructiv e pulmonary disease 76824461 Active 2022 JUAN MANUEL MORALES NP [address], [address], [place], [address], [facility] 3 11:13:52 Gastroesop hageal reflux disease without esophagiti s 767533490 Active 2022 JUAN MANUEL MORALES NP [address], [address], [place], [address], [facility] 3 11:13:58 Congestive heart failure 25502657 Active 2022 JUAN MANUEL MORALES NP [address], [address], [place], [address], [facility] 3 11:14:03 Atrial fibrillati on 65232370 Active 2022 JUAN MANUEL MORALES NP [address], [address], [place], [address], [facility] 3 11:14:08 Hematoma of right thigh 073756307485 86577 Active 2022 JUAN MANUEL MORALES NP [address], [address], [place], [address], [facility] 3 11:14:21 Essential hypertensi on 13997133 Active 2022 JUAN MANUEL MORALES NP [address], [address], [place], [address], [facility] 3 11:40:46 Hyperlipid emia 05584899 Active 2022 JUAN MANUEL MORALES NP [address], [address], [place], [address], [facility] 3 11:41:07 Mixed anxiety and depressive disorder 756928464 Active 2022 JUAN MANUEL MORALES NP [address], [address], [place], [address], [facility] 3 11:41:48 Impaired cognition 946256093 Active 2022 Sandra Morrison MD [address], [address], [place], [address], [facility] 3 01:04:56 Overactive urinary bladder 083952495 Active 2022 Sandra Morrison MD [address] [facility], [address], [place], [address], [facility] 3 01:13:05 Dry eyes 952272704 Active 2022 Sandra Morrison MD [address] [facility], [address], [place], [address], [facility] 3 01:14:09 Hematoma 125272730 Active 2022 left buttock JUAN MANUEL MORALES NP [address] [facility], [address], [place], [address], [facility] 3 13:03:34 Leukocytos is 730638446 Active 2023 JUAN MANUEL MORALES NP [address] [facility], [address], [place], [address], [facility] 4 12:21:55 Restless legs 99494757 Active 2023 Sandra Morrison MD [address], [address], [place], [address], [facility] 4 18:41:39 Mixed urinary incontinen ce 528258181 Active 2023 Sandra Morrison MD [address], [address], [place], [address], [facility] 4 18:42:46 Bacterial conjunctiv itis 652806076 Active 2023 REGI COÓLN [address] [facility], [address], [place], [address], [facility] 4 17:01:03 Notes:Some problems listed i n Document: #[id number] could not be added to this patient's chart. Please review this document and add these problems to the patient's chart manually as needed. Problem Notes None recorded. Medical Equipment None Reported. Allergies No known drug allergies Medications Name Sig Start Date Stop Date Status Note LastModified by Organization Details LastModified Time tramadol 50 mg tablet Take 1 tablet every 6 hours by oral route. 024 active Not Available Not Available Not Avai lable Vitals Date Recorded Body height Heart rate Respiratory rate Body temperature Oxygen saturation Oxygen saturation in Arterial blood by Pulse oximetry Systolic blood pressure Diastolic blood pressure Provider Name and Address Organization Details Last Updated DateTime 4 167.64 cm 72 /min 18 /min 97.2 [degF] 94 % 94 % 128 mm[Hg] 70 mm[Hg] REGI COLÓN [address] [facility], [address], [place], [address], [facility] 4 11:36:37 Date Recorded Body height Provider Name an d Address Organization Details Last Updated DateTime 07/04/2024 167.64 cm REGI COLÓN [address] [facility], [address], [place], [address], [facility] 07/04/2024 12:29:27 Date Recorded Body height Heart rate Respiratory rate Body temperature Oxygen saturation Oxygen saturation in Arterial blood by Pulse oximetry Systolic blood pressure Diastolic blood pressure Provider Name and Address Organization Details Last Updated DateTime 5 167.64 cm 72 /min 18 /min 97.7 [degF] 96 % 96 % 120 mm[Hg] 70 mm[Hg] REGI COLÓN [address] [facility], [address], [place], [address], [facility] 09:37:30 Social History Question Answer Notes LastModified by Organizat ion Details LastModified Time Tobacco Smoking Status Former Smoker JUAN MANUEL MORALES NP [address] [facility], [address], [place], [address], [facility] 08/08/2022 11:11:20 Do You Have An Advance Directive? Yes Information not available 08/11/2022 What Is Your Level Of Alcohol Consumption? None Information not available 08/08/2022 What Is Your Code Status? Full Code Information not available 08/11/2022 [facility], Previously Lived Alone, No Stairs Information not available 05/15/2023 Legal Guardian? No Informati on not available 08/12/2022 Do You Have A Medical Power Of Sleeve Machine Tender? Yes Information not available 08/12/2022 What Was The Date Of Your Most Recent Tobacco Screening? 08/08/2022 Information not available 08/08/2022 Do You Have An Out Of Hospital DNR? No Information not available 08/12/2022 What Is Your Relationship Status? Information not available 10/07/2022 Do You Use Any Illicit Or Recreational Drugs? No Information not available 08/08/2022 Has Tobacco Cessation Counseling Been Provided? No N/a As Pt No Longer Smokes Information not available 08/12/2022 Do You Or Have You Ever Used Any Other Forms Of Tobacco Or Nicotine? No Information not available 08/12/2022 Sex: Unknown Functional Status None recorded. Mental Status None recorded. Family History Nothing Reported Notes:n/c Medical History No medical history recorded. Gynecological HistoryNo gynecological history recorded. Obstetrics History GPAL:G 0 P 0 0 0 0 Immunizations Vaccine Type Date Status Note Provider Nam e and Address Organization Details Recorded Time Influenza, adjuvanted, quadrivalent, PF 05/22/2022 completed Maryam hernandez, [facility] 07/30/2023 12:41:28 Past Encounters Encounter ID Performer Location Encounter Start Date Encounter Closed Date Diagnosis/Indication Diagnosis SNOMED-CT Code Diagnosis ICD10 Code Diagnosis Note [id number] JUAN MANUEL MORALES NP [facility] [address] [facility] [place] [address] 08/08/2022 09:43:58 08/12/2022 10:33:59 Recurrent falls 944874971 R29.6 PT OT eval and treatfall precaution sfrequent safety checks Hematoma o f right thigh 9034953412 9598842 S70.11XA change dressing per ordersmoni tor for increased swellingav oid further falls Atrial fibrillation 4943 6004 I48.91 amiodarone 200 mg dailyeiliq uis 5 mg bidbisopro lol 2.5 mg daily Chronic ob structive pulmonary disease 25852983 J44.9 albuterol inhaler q4hr prnadvair 100/25 daily Congestive heart failure 63664938 I50.9 lasix 20 mg dailylosar miller 25 mg daily Osteoarthritis 134895217 M19.90 cholecalci ferol 2000 dailyrisen dronate 35 weekly Gastroesop hageal reflux disease without esophagitis 154294410 K21.9 CaCarb 500 bidprotoni x 40 mg daily Essential hypertension 17888908 I10 amlodipine 5 mg dailycloni dine 0.1 mg q12 hr Hyperlipidemia 25307515 E78.5 atorvastat in 40 mg daily Mixed anxi ety and depressive disorder 786549761 F41.8 bupropion er 150 mg dailytrazo done 100 mg hs [facility] [address] [place] [address] 08/11/2022 14:11:22 08/13/2022 13:57:19 Hematoma of right thigh 3058675008 4846708 S70.11XA change dressing per ordersmoni tor for increased swellingav oid further falls Congestive heart failure 43854770 I50.9 lasix 20 mg dailylosar miller 25 mg daily [id number] Sandra Morrison MD [address] [address] 08/12/2022 17:25:40 08/18/2022 16:13:47 Hematoma of right thigh 4023493802 0814046 S70.11XD With minimal drainage from drains.Lik bruno will get removed at appt tomorrow.M onitor thigh for healing.Mo nitor CBC. Congestive heart failure 52000208 I50.22 Appears euvolemic. Continue bisoprolol 2.5 mg qd, lasix 20 mg qd and losartan 25 mg qd.Monitor resp. status, fluid status, wts and labs. Recurrent falls 15237089 2 R29.6 Very deconditio demetrius.Needs PT/OT for strengthen ing, balance, gait training, safety and function.C ontinue fall precaution s.Monitor for safety. Atrial fibrillation 4943 6004 I48.0 Rate in good control on meds as above and amiodarone 200 mg qd.Continu e eliquis 5 mg BID for AC.Monitor HR and bleeding risk. Chronic ob structive pulmonary disease 87127027 J43.8 At baseline.C ontinue Advair 100/25 mcg BID and albuterol MDI 2 puffs q 4 hrs prn.Monito r resp. status. Gastroesop hageal reflux disease without esophagitis 287837900 K21.9 No current sxs.Contin ue pantoprazo le 40 mg qd.Monitor sxs. Essential hypertension 64210425 I10 Systolic has been high periodical ly, likely due to pain.No change in meds for now.Contin ue meds as above and amlodipine 5 mg qd and clonidine 0.1 mg BID.Monito r BP and labs. Hyperlipidemia 43363629 E78.49 Continue atorvastat in 40 mg qd.Monitor labs as outpt. Mixed anxi ety and depressive disorder 812972408 F41.8 Mood ok tonight.Co ntinue bupropion ER 150 mg qd and trazodone 100 mg qhsMonitor mood.Psych consult prn. Osteoporosis 35389876 M8 1.0 Continue cholecalci ferol 2000 IU qd, calcium 500 mg BID, and risedronat e 35 mg weeklyMoni tor as outpt. [id number] JUAN MANUEL MORALES [facility] [address] [place] [address] 08/14/2022 11:52:29 08/18/2022 16:23:58 Chronic obstructive pulmonary disease 06851510 J44.9 albuterol inhaler q4hr prnadvair 100/25 daily Congestive heart failure 47850225 I50.9 lasix 20 mg dailylosar miller 25 mg daily [id number] TONY ALMARAZ [address] [place] [address] 08/20/2022 13:24:34 08/22/2022 13:09:35 Chronic obstructive pulmonary disease 20515339 J43.8 albuterol inhaler q4hr prnadvair 100/25 daily Mixed anxi ety and depressive disorder 379959925 F41.8 bupropion er 150 mg dailytrazo done 100 mg hsmonitor and chart any changes in mood or behaviorsp [facility] [id number] JUAN MANUEL MORALESTONY [address] [address] 08/27/2022 10:50:59 09/02/2022 10:27:22 Hematoma of right thigh 4283034126 5814556 S70.11XD change dressing per ordersmoni tor for increased swellingav oid further fallsWBAT Chronic ob structive pulmonary disease 53082586 J43.8 albuterol inhaler q4hr prnadvair 100/25 daily Recurrent falls 75675107 2 R29.6 PT OT eval and treatfall precaution sfrequent safety checks [id number] JUAN MANUEL MORALESTONY [address] [address] 09/03/2022 10:52:54 09/05/2022 13:45:58 Chronic obstructive pulmonary disease 87006569 J43.8 albuterol inhaler q4hr prnadvair 100/25 daily Recurrent falls 67782416 2 R29.6 PT OT eval and treatfall precaution sfrequent safety checks [id number] JUAN MANUEL MORALES TONY [address] [address] 09/05/2022 10:51:26 09/09/2022 07:59:39 Recurrent falls 508665957 R29.6 PT OT eval and treatfall precaution sfrequent safety checks Hematoma o f right thigh 9443767575 9707851 S70.11XA change dressing per ordersmoni tor for increased swellingav oid further falls Atrial fibrillation 4943 6004 I48.91 amiodarone 200 mg dailyeiliq uis 5 mg bidbisopro lol 2.5 mg daily Chronic ob structive pulmonary disease 19530276 J44.9 albuterol inhaler q4hr prnadvair 100/25 daily Congestive heart failure 57269483 I50.9 lasix 20 mg dailylosar miller 25 mg daily Osteoarthritis 886927522 M19.90 cholecalci ferol 2000 dailyrisen dronate 35 weekly Gastroesop hageal reflux disease without esophagitis 860530180 K21.9 CaCarb 500 bidprotoni x 40 mg daily Essential hypertension 94974361 I10 amlodipine 5 mg dailycloni dine 0.1 mg q12 hr Hyperlipidemia 54191617 E78.5 atorvastat in 40 mg daily Mixed anxi ety and depressive disorder 641858752 F41.8 bupropion er 150 mg dailytrazo done 100 mg hs [id number] Sandra Morrison MD [address] [address] 10/07/2022 18:29:02 10/10/2022 15:21:01 Abrasion and/or friction burn of back without infection 72900968 S30.810A With open abrasion.W ill use local care and protection with dressings and monitor sxs. Fall W18.39XA Pt. reminded to call for help when she wants to get up.Continu es to need PT/OT for strengthen ing, balance, gait training, safety and function.C ontinue fall precaution s.Monitor for safety. Essential hypertension 14376785 I10 Systolic was very high this AM, not rechecked since fall. Overall good recently.C ontinue bisoprolol 2.5 mg qd, lasix 20 mg qd, losartan 25 mg qd. amlodipine 5 mg qd and clonidine 0.1 mg BID.Monito r BP and labs. [id number] Sandra Morrison MD [facility] [address] [place] [address] 10/09/2022 13:55:48 10/14/2022 11:00:12 Abrasion and/or friction burn of back without infection 10265667 S30.810A Abrasion healing.Co ntinue local care and protection with dressings and monitor sxs. Fall W18.39XA Fall 2 days ago.Contin ues to need PT/OT for strengthen ing, balance, gait training, safety and function.C ontinue fall precaution s.Monitor for safety. Essential hypertension 15928979 I10 Continues with intermitte nt elevated SBP, but mostly good.Would rather err on the side of permissive HTN to avoid hypotensio n. Will not change anything at this time. Also with increased pain which is likely contributi ng.Continu e bisoprolol 2.5 mg qd, lasix 20 mg qd, losartan 25 mg qd. amlodipine 5 mg qd and clonidine 0.1 mg BID.Monito r BP and labs. Hematoma o f right thigh 2296727887 8241114 S70.11XD Healed.CBC stable. Congestive heart failure 44519592 I50.22 Continues to be euvolemic. Continue bisoprolol 2.5 mg qd, lasix 20 mg qd and losartan 25 mg qd.Monitor resp. status, fluid status, wts and labs. Atrial fibrillation 4943 6004 I48.0 Rate remains in good control on meds as above and amiodarone 200 mg qd.Continu e eliquis 5 mg BID for AC.Monitor HR and bleeding risk. Chronic ob structive pulmonary disease 11576680 J43.8 Continues at baseline.C ontinue Advair 100/25 mcg BID and albuterol MDI 2 puffs q 4 hrs prn.Monito r resp. status. Osteoporosis 42147893 M8 1.0 Continue cholecalci ferol 2000 IU qd, calcium 500 mg BID, and risedronat e 35 mg weeklyMoni tor as outpt. Gastroesop hageal reflux disease without esophagitis 297334717 K21.9 No current sxs.Contin ue pantoprazo le 40 mg qd.Monitor sxs. Hyperlipidemia 53558468 E78.49 Continue atorvastat in 40 mg qd.Monitor labs as outpt. Mixed anxi ety and depressive disorder 976138331 F41.8 Mood ok tonight.Co ntinue bupropion ER 150 mg qd, Buspar 5 mg qd, and trazodone 100 mg qhsMonitor mood.Psych consult prn. Impaired cognition 91654 6002 R41.89 Oriented today, but with frequent episodes of confusion. Continue supportive care, expect decline.HC P invokedMon itor mood and behaviors. Psych consult prn. Overactive urinary bladder 603761705 N32.81 Per pt. has been on Gemtesa in the past, would like to restart.Ge mtesa 75 mg qd.Monitor urinary function. Restless legs 61966093 G 25.81 With increased sxs of RLS.Will start requip 0.25 mg qhs.Monito r sxs. Dry eyes 289071790 H04.1 23 Will start natural tears q 2 hrs prn, may leave at bedside.Mo nitor sxs. [id number] JUAN MANUEL MORALES NP MARCIO DONG [address] [place] [address] [place] [address] 10/13/2022 12:47:26 10/15/2022 12:27:09 Hematoma 023348367 M79.81 sent to ED for further eval as it is expanding [id number] JUAN MANUEL MORALES NP MARCIO DONG [address] [place] [address] [place] [address] 10/17/2022 10:23:03 10/22/2022 16:06:33 Hematoma 482484066 M79.81 oxycodone 2.5 mg q6hr prn for 5 daysmonito r for healibng Recurrent falls 58071158 2 R29.6 PT OT eval and treatfall precaution sfrequent safety checks Hematoma o f right thigh 1365710835 4697224 S70.11XA resolvedav oid further falls Atrial fibrillation 4943 6004 I48.91 amiodarone 200 mg dailyeiliq uis 5 mg bidbisopro lol 2.5 mg daily Chronic ob structive pulmonary disease 43641329 J44.9 albuterol inhaler q4hr prnadvair 100/25 daily Congestive heart failure 56250142 I50.9 lasix 20 mg dailylosar miller 25 mg daily Osteoarthritis 965030499 M19.90 cholecalci ferol 2000 dailyrisen dronate 35 weekly Gastroesop hageal reflux disease without esophagitis 733765363 K21.9 CaCarb 500 bidprotoni x 40 mg daily Essential hypertension 24898099 I10 amlodipine 5 mg dailycloni dine 0.1 mg q12 hr Hyperlipidemia 68774376 E78.5 atorvastat in 40 mg daily Mixed anxi ety and depressive disorder 163732638 F41.8 bupropion er 150 mg dailybuspa r 5 mg dailytrazo done 100 mg hs Overactive urinary bladder 067485104 N32.81 Gemtesa 75 mg qd.Monitor urinary function. [id number] JUAN MANUEL MORALES NP MARCIO DONG [address] [place] [address] [place] [address] 10/20/2022 12:38:53 10/22/2022 16:25:33 Hematoma 450437155 M79.81 oxycodone 2.5 mg q6hr prn for 5 daysmonito r for healing Recurrent falls 66919983 2 R29.6 PT OT eval and treatfall precaution sfrequent safety checks [id number] JUAN MANUEL MORALES NP [address] [address] 10/24/2022 10:45:27 10/28/2022 12:44:55 Hematoma 409847007 M79.81 oxycodone 2.5 mg q6hr prn for 5 daysmonito r for healing Impaired cognition 53035 6002 R41.89 Oriented intermitte ntly, but with frequent episodes of confusion. Continue supportive care, expect decline.HC P invokedMon itor mood and behaviors. Psych consult prn. [id number] JUAN MANUEL MORALES NP [facility] [address] [place] [address] 10/29/2022 13:57:22 10/31/2022 15:54:37 Hematoma 662987815 M79.81 monitor for healing Recurrent falls 24384295 2 R29.6 PT OT eval and treatfall precaution sfrequent safety checks Hematoma o f right thigh 4316691229 8046460 S70.11XA resolvedav oid further falls Atrial fibrillation 4943 6004 I48.91 amiodarone 200 mg dailyeiliq uis 5 mg bidbisopro lol 2.5 mg daily Chronic ob structive pulmonary disease 45479033 J44.9 albuterol inhaler q4hr prnadvair 100/25 daily Congestive heart failure 25665926 I50.9 lasix 20 mg dailylosar miller 25 mg daily Osteoarthritis 690858948 M19.90 cholecalci ferol 2000 dailyrisen dronate 35 weekly Gastroesop hageal reflux disease without esophagitis 500576230 K21.9 CaCarb 500 bidprotoni x 40 mg daily Essential hypertension 83766100 I10 amlodipine 5 mg dailycloni dine 0.1 mg q12 hr Hyperlipidemia 75817532 E78.5 atorvastat in 40 mg daily Mixed anxi ety and depressive disorder 615731526 F41.8 bupropion er 150 mg dailybuspa r 5 mg dailytrazo done 100 mg hs Overactive urinary bladder 948737553 N32.81 Gemtesa 75 mg qd.Monitor urinary function. [id number] MD MARCIO Cline [address] [place] [address] [place] [address] 01/28/2023 07:59:08 01/30/2023 15:30:48 Impaired cognition 382291341 R41.89 will monitor and support as neededI did not feel that I could invoke patient's HCP proxy today as she was quite appropriat e in her answers to my questions with even some insight. Chronic ob structive pulmonary disease 39291854 J41.0 Advair 250-50: one puff [id number] rol HFA: 2 puffs q4h prnwill monitor Atrial fibrillation 4943 6004 I48.0 apixaban 5 mg bidbisopro lol 2.5 mg dailyamiod arone 200 mg dailywill monitor Essential hypertension 75173446 I10 bisoprolol 2.5 mg dailyamlod ipine 5 mg dailyfuros emide 20 mg dailylosar miller 25 mg dailycloni dine 0.1 mg [id number] monitor Mixed anxi ety and depressive disorder 665930949 F41.8 buspirone 5 mg tidtrazodo ne 100 mg at hsbupropri on 100 mg dailyescit alopram 10 mg dailyhydro xyzine 10 mg q8h prn anxietywil l monitor Overactive urinary bladder 648042121 N32.81 vibegron 75 mg dailywill monitor Restless legs 70957244 G 25.81 ropinirole 0.25 mg dailywill monitor Gastroesop hageal reflux disease without esophagitis 100827879 K21.9 pantoprazo le 40 mg dailywill monitor Primary osteoporosis 276 486452 M81.0 risendrona te 25 mg weeklywill monitor Chronic sy stolic heart failure 187441099 I50.22 losartan 25 mg dailyfuros emide 20 mg dailybisop rolol 2.5 mg dailywill monitor [id number] TONY ALMARAZ [address] [place] [address] [place] [address] 03/20/2023 16:32:09 03/27/2023 09:38:51 Overactive urinary bladder 908337039 N32.81 urology consult prnMonitor urinary function. Impaired cognition 73079 6002 R41.89 will monitor and support as needed Chronic ob structive pulmonary disease 07969002 J41.0 Advair 250-50: one puff [id number] rol HFA: 2 puffs q4h prnwill monitor Atrial fibrillation 4943 6004 I48.0 apixaban 5 mg bidbisopro lol 2.5 mg dailyamiod arone 200 mg dailywill monitor Essential hypertension 92601465 I10 bisoprolol 2.5 mg dailyamlod ipine 5 mg dailyfuros emide 20 mg dailylosar miller 25 mg dailycloni dine 0.1 mg [id number] monitor Mixed anxi ety and depressive disorder 827410185 F41.8 buspirone 5 mg tidtrazodo ne 100 mg at hsbupropri on 100 mg dailyescit alopram 10 mg dailyhydro xyzine 10 mg q8h prn anxietywil l monitor Restless legs 35943630 G 25.81 ropinirole 0.25 mg dailywill monitor Gastroesop hageal reflux disease without esophagitis 570010518 K21.9 pantoprazo le 40 mg dailywill monitor Primary osteoporosis 276 312456 M81.0 risendrona te 25 mg weeklywill monitor Chronic sy stolic heart failure 040223918 I50.22 losartan 25 mg dailyfuros emide 20 mg dailybisop rolol 2.5 mg dailywill monitor Recurrent falls 11123014 2 R29.6 PT OT eval and treatfall precaution sfrequent safety checks [id number] Sandra Morrison MD [address] [address] 05/15/2023 17:56:32 05/19/2023 11:07:46 Fall 9055343 R29.6 Hx of fallsConti nue fall precaution s.Monitor for safety. Essential hypertension 53666899 I10 Good control.Co ntinue bisoprolol 2.5 mg qd, lasix 20 mg qd, losartan 25 mg qd. amlodipine 5 mg qd and clonidine 0.1 mg BID.Monito r BP and labs. Hematoma o f right thigh 9360050474 8250325 S70.11XD Healed.CBC stable. Impaired cognition 53191 6002 R41.89 Mild confusion today, but fairly oriented.C ontinue supportive care, expect decline.HC P invokedMon itor mood and behaviors. Psych consult prn. Congestive heart failure 29941297 I50.22 Continues to be euvolemic. Continue bisoprolol 2.5 mg qd, lasix 20 mg qd and losartan 25 mg qd.Monitor resp. status, fluid status, wts and labs. Atrial fibrillation 4943 6004 I48.0 Rate remains in good control on meds as above and amiodarone 200 mg qd.Continu e eliquis 5 mg BID for AC.Monitor HR and bleeding risk. Chronic ob structive pulmonary disease 16396961 J43.8 Continues at baseline.C ontinue Advair 100/25 mcg BID and albuterol MDI 2 puffs q 4 hrs prn.Monito r resp. status. Osteoporosis 20926780 M8 1.0 Continue cholecalci ferol 2000 IU qd, calcium 500 mg BID, and risedronat e 35 mg weeklyMoni tor as outpt. Gastroesop hageal reflux disease without esophagitis 000064855 K21.9 No current sxs.Contin ue pantoprazo le 40 mg qd.Monitor sxs. Hyperlipidemia 64551424 E78.49 Continue atorvastat in 40 mg qd.Monitor labs as outpt. Mixed anxi ety and depressive disorder 454041882 F41.8 Mood ok tonight.Co ntinue bupropion ER 100 mg qd, Buspar 5 mg TID, clonidine 0.1 m BID, and trazodone 100 mg qhsMonitor mood.Psych consult prn. Restless legs 51439147 G 25.81 Continue requip 0.25 mg qhs.Monito r sxs. Mixed urin laura incontinence 589224261 N39.46 Continue estring 2 mg q 3 months and estrace cream 2 gms 3x/wkMonit or urinary function.F /U with uro prn. Visual hallucinations 64 869351 R44.1 Psych consult for visual and auditory hallucinat ions.[place]. [id number] TONY ALMARAZ [address] [place] [address] rd [place] [address] 07/10/2023 12:52:00 07/21/2023 11:22:40 Overactive urinary bladder 400553404 N32.81 urology consult prnMonitor urinary function.d -mannose 500 mg daily uti preventati ve Impaired cognition 04070 6002 R41.89 will monitor and support as needed Chronic ob structive pulmonary disease 26297262 J41.0 Advair 250-50: one puff [id number] rol HFA: 2 puffs q4h prnwill monitor Atrial fibrillation 4943 6004 I48.0 apixaban 5 mg bidbisopro lol 2.5 mg dailyamiod arone 200 mg dailywill monitor Essential hypertension 47645377 I10 bisoprolol 2.5 mg dailyamlod ipine 5 mg dailyfuros emide 20 mg dailylosar miller 25 mg dailycloni dine 0.1 mg [id number] monitor Mixed anxi ety and depressive disorder 461341365 F41.8 buspirone 5 mg tidtrazodo ne 100 mg at hsbupropri on 100 mg dailyescit alopram 10 mg dailyhydro xyzine 10 mg q8h prn anxietywil l monitor Restless legs 17726702 G 25.81 ropinirole 0.25 mg dailywill monitor Gastroesop hageal reflux disease without esophagitis 928913420 K21.9 pantoprazo le 40 mg dailywill monitor Primary osteoporosis 276 925857 M81.0 risendrona te 25 mg weeklywill monitor Chronic sy stolic heart failure 629907911 I50.22 losartan 25 mg dailyfuros emide 20 mg dailybisop rolol 2.5 mg dailywill monitor Recurrent falls 01852356 2 R29.6 PT OT eval and treatfall precaution sfrequent safety checks [id number] TONY ALMARAZ [address] [facility] [place] [address] 07/15/2023 12:09:17 07/21/2023 14:31:17 Leukocytosis 975212855 D72.829 UA C/Scxr [id number] Martina DONG [address] [facility] [place] [address] 08/28/2023 10:48:09 10/26/2023 15:56:34 Atrial fibrillation 97541779 I48.0 chronic, stable. RCcontinue eliquiscon tinue norvasccon tinue amiodarone monitor HR Chronic ob structive pulmonary disease 72314890 J41.0 chronic stablecont inue inhalersmo nitor for changes in respirator y status Congestive heart failure 23234004 I50.22 chronic, stablecont inue lasix 20mg dailymonit or BMP Essential hypertension 27031925 I10 chronic stablecont inue norvasc and losartanal so on lasix Hyperlipidemia 99878829 E78.49 continue atorvastat inmonitor lipids annually [id number] Jenni Kwong MD [address] [address] 09/09/2023 08:10:55 09/15/2023 10:16:26 Impaired cognition 215920236 R41.89 will monitor and support as needed Mixed anxi ety and depressive disorder 356481444 F41.8 buspirone 5 mg tidtrazodo ne 100 mg at hsbupropri on 100 mg dailyescit alopram 10 mg dailyhydro xyzine 10 mg q8h prn anxietywil l monitor Atrial fibrillation 4943 6004 I48.0 apixaban 5 mg bidbisopro lol 2.5 mg dailyamiod arone 200 mg dailywill monitor Essential hypertension 48650159 I10 bisoprolol 2.5 mg dailyamlod ipine 5 mg dailyfuros emide 20 mg dailylosar miller 25 mg dailycloni dine 0.1 mg [id number] monitor Hyperlipidemia 12227994 E78.49 atorvastat in 40 mg dailywill monitor Chronic ob structive pulmonary disease 06360088 J41.0 Advair 250-50: one puff [id number] rol HFA: 2 puffs q4h prnwill monitor Gastroesop hageal reflux disease without esophagitis 638266625 K21.9 pantoprazo le 40 mg dailywill monitor Restless legs 65051849 G 25.81 ropinirole 0.25 mg dailywill monitor Cobalamin deficiency 190 711248 E53.8 B12 500 mcg dailywill monitor [id number] [facility] [address] [address] 09/21/2023 11:12:35 09/23/2023 09:57:55 Acute dermatitis 84932777 L30.9 left upper facial near left eye itchy dry red scaly dry spothydorc ortisone 0.1 % apply small amount to affected area on face daily for 5 daymonitor for worsening oe spreading, nursing to update provider.m oisture facial skin daily and prnencoura ged to avoid make up until area has cleared up.pt encourage to ask family to provide new make up brushes Impaired cognition 20320 6002 R41.89 will monitor and support as needed [id number] [facility] [address] [place] [address] [place] [address] 09/22/2023 15:18:31 09/24/2023 12:07:21 Impaired cognition 774656919 R41.89 will monitor and support as needed Pain of le ft knee region 3078484981 97158 M25.562 see hpiwill scheduled 975 mg tylenol TIDxray left knee 2 viewsconsi christiano PT/OT eval if imaging is negative for fx. [id number] [facility] [address] [place] [address] [place] [address] 10/13/2023 18:47:09 10/15/2023 17:16:34 Cough 30573453 R05.9 10/11: started mucinex 600 mg q 12 prn and albuterol inhaler 2 puff q4 for sobstart supplement al oxygen to keep sats greater than 90%10/12: chest xray ordered and completed today shows mild right basilar infiltrate , new findings from previous xray 07/15/23.elida l start on augmentin 875 mg q 12 for 5 daysstart zithromax 500 mg for 1 day then 250 mg dayincreas e oral hydrationm onitor resp status [id number] [facility] [address] [place] [address] [place] [address] 10/29/2023 11:14:47 11/03/2023 12:16:03 Impaired cognition 656604221 R41.89 Continue supportive care, expect decline.HC P invokedMon itor mood and behaviors. Psych consult prn. Essential hypertension 87479398 I10 BP has been controlled with current medicatios .Continue bisoprolol 2.5 mg qd, lasix 20 mg qd, losartan 25 mg qd. amlodipine 5 mg qd and clonidine 0.1 mg BID.Monito r BP and labs. Congestive heart failure 83264994 I50.22 euvolemic. Continue bisoprolol 2.5 mg qd, lasix 20 mg qd and losartan 25 mg qd.Monitor resp. status, fluid status, wts and labs. Atrial fibrillation 4943 6004 I48.0 HR controlled continue amiodarone 200 mg qd.Continu e eliquis 5 mg BID for AC.Monitor HR and bleeding risk. Chronic ob structive pulmonary disease 05117363 J43.8 Continues at baseline.C ontinue Advair 100/25 mcg BID and albuterol MDI 2 puffs q 4 hrs prn.Monito r resp. status. Osteoporosis 99599407 M8 1.0 Continue cholecalci ferol 2000 IU qd, calcium 500 mg BID, and risedronat e 35 mg weeklyMoni tor as outpt. Gastroesop hageal reflux disease without esophagitis 642818936 K21.9 No current sxs.Contin ue pantoprazo le 40 mg qd.Monitor sxs. Hyperlipidemia 53825278 E78.49 Continue atorvastat in 40 mg qd.Monitor labs as outpt. Mixed anxi ety and depressive disorder 493122426 F41.8 Continue bupropion ER 100 mg qd, Buspar 5 mg TID, clonidine 0.1 m BID, and trazodone 100 mg qhs,lexapr o 10 mg daily and hydroxyzin e 10 mg qdMonitor mood.Psych consult prn. Restless legs 17134123 G 25.81 Continue requip 0.25 mg qhs.Monito r sxs. Mixed urin laura incontinence 091202691 N39.46 Continue estring 2 mg q 3 monthsMoni tor urinary function.F /U with uro prn. Tear of skin 230032607 T 14.8XXA LLE flap tear, approximat edcontinue to monitor healing. [id number] [facility] [address] [place] [address] [place] [address] 11/10/2023 12:24:35 11/23/2023 12:50:14 Shoulder pain 26589253 M25.519 right shoulder pain+ discomfort with abduction, suspect OAnursing to give now dose tylenol and continue prnPT/OT eval and treatwill monitor. [id number] [facility] [address] [place] [address] [place] [address] 11/25/2023 11:56:55 11/27/2023 12:02:47 Candidiasis of vagina 45372178 B37.31 vaginal redness appears yeastPatie nt has no discomfort start diflucan 150 mg Q72 for 3 dosesPt is incontinen t, nursing encourage to check for incontinen t episode and change Q2.keep skin clean and drymonitor for resolution [id number] Sandra Morrison MD [facility] [address] [place] [address] [place] [address] 01/15/2024 21:46:22 02/02/2024 07:55:44 Impaired cognition 507198315 R41.89 Continues at baseline.C ontinue escitalopr am 10 mg qd, bupropion ER 100 mg qd, Buspar 5 mg TID, clonidine 0.1 m BID, trazodone 100 mg qhs, and hydroxyzin e 10 mg qd.Continu e supportive care, expect decline.HC P invokedMon itor mood and behaviors. Psych follows. Visual hallucinations 64 922799 R44.1 Psych follows, no mention of this in recent notes.Aida tor Essential hypertension 43015059 I10 Continues in good control.Co ntinue bisoprolol 2.5 mg qd, lasix 20 mg qd, losartan 25 mg qd. amlodipine 5 mg qd and clonidine 0.1 mg BID.Monito r BP and labs. Congestive heart failure 82842805 I50.22 Continues to be euvolemic. Continue bisoprolol 2.5 mg qd, lasix 20 mg qd and losartan 25 mg qd.Monitor resp. status, fluid status, wts and labs. Atrial fibrillation 4943 6004 I48.0 Rate in good control on meds as above and amiodarone 200 mg qd.Continu e eliquis 5 mg BID for AC.Monitor HR and bleeding risk. Chronic ob structive pulmonary disease 60640743 J43.8 Continues at baseline.C ontinue Advair 100/25 mcg BID and albuterol MDI 2 puffs q 4 hrs prn.Mucine x 600 mg BID added for cough in 10/2023.Mon itor resp. status. Osteoporosis 51422990 M8 1.0 Continue cholecalci ferol 2000 IU qd, calcium 500 mg BID, and risedronat e 35 mg weeklyMoni tor as outpt. Gastroesop hageal reflux disease without esophagitis 169165237 K21.9 No current sxs.Contin ue pantoprazo le 40 mg qd.Monitor sxs. Hyperlipidemia 56000030 E78.49 Continue atorvastat in 40 mg qd.Monitor labs as outpt. Mixed anxi ety and depressive disorder 823451982 F41.8 As above. Restless legs 79997711 G 25.81 She mentions this tonight.Co ntinue requip 0.25 mg qhs.Consid er increase to 0.5 mg qhs.Monito r sxs. Mixed urin laura incontinence 741180934 N39.46 Continue estring 2 mg q 3 months.Mon itor urinary function.F /U with uro prn. Cough 00531270 R05.9 Back to baseline.M onitor [id number] [facility] [address] [address] 02/24/2024 09:53:07 02/25/2024 10:07:37 Bacterial conjunctivitis 353018603 H10.9 see hpibilater al erythema, dry yellowish discharge noted on lashes and corners or eyesstart ofloxacin 0.3 % 2 gtts QID for 5 daysmonito r for resolution patient encouraged to avoid rubbing eyes, apply cool compress for comfort. [id number] [facility] [address] [address] 03/02/2024 10:16:42 03/04/2024 10:24:18 Bacterial conjunctivitis 810958771 H10.9 ofloxacin eye gtts completeds clera white, no drainage or discharge, denies didcomfort .bilateral erythema, dry yellowish discharge noted on lashes and corners or eyespatien t encouraged to avoid rubbing eyes, apply cool compress for comfort. Mixed anxi ety and depressive disorder 453012003 F41.8 followed by [facility] seen on 02/28 with recommenda tion for GDR she is currently on 4 psychotrop ic medication 03/02: decrease bupropion ER 100 mg qd to 75 mgcheck EKG for QTcContinu e , Buspar 5 mg TID, clonidine 0.1 m BID, and trazodone 100 mg qhs,lexapr o 10 mg daily and hydroxyzin e 10 mg qdMonitor mood.Psych prn [id number] [facility] [address] [address] 03/07/2024 15:12:42 03/09/2024 09:31:11 Recurrent falls 997638005 R29.6 see hpino acute injuries or reports of discomfort .nursing to continue post fall protocol. [id number] [facility] [address] [address] 03/09/2024 10:14:06 03/15/2024 13:07:32 Impaired cognition 981269239 R41.89 Continue supportive care, expect decline.HC P invokedMon itor mood and behaviors. Psych consult prn. Essential hypertension 91004181 I10 Continue bisoprolol 2.5 mg qd, lasix 20 mg qd, losartan 25 mg qd. amlodipine 5 mg qd and clonidine 0.1 mg BID.Monito r BP and labs. Congestive heart failure 10879975 I50.22 euvolemic. she has been stableCont inue bisoprolol 2.5 mg qd, lasix 20 mg qd and losartan 25 mg qd.Monitor resp. status, fluid status, wts and labs. Atrial fibrillation 4943 6004 I48.0 denies any chest pain or other associated sx,continu e amiodarone 200 mg qd.Continu e eliquis 5 mg BID for AC.Monitor HR and bleeding risk. Chronic ob structive pulmonary disease 47793962 J43.8 Continues at baseline.C ontinue Advair 100/25 mcg BID and albuterol MDI 2 puffs q 4 hrs prn.Monito r resp. status. Osteoporosis 58457328 M8 1.0 Continue cholecalci ferol 2000 IU qd, calcium 500 mg BID, and risedronat e 35 mg weeklyMoni tor as outpt. Gastroesop hageal reflux disease without esophagitis 546060583 K21.9 tolerating a regular diet, no reported GI upsetConti nue pantoprazo le 40 mg qd.Monitor sxs. Hyperlipidemia 34531760 E78.49 Continue atorvastat in 40 mg qd.Monitor labs as outpt. Mixed anxi ety and depressive disorder 691299430 F41.8 Continue bupropion ER 100 mg qd, Buspar 5 mg TID, clonidine 0.1 m BID, and trazodone 100 mg qhs,lexapr o 10 mg daily and hydroxyzin e 10 mg qdMonitor mood.Psych consult prn. Restless legs 37656720 G 25.81 Continue requip 0.25 mg qhs.Monito r sxs. Mixed urin laura incontinence 670749545 N39.46 Continue estring 2 mg q 3 monthsMoni tor urinary function.F /U with uro prn. Bacterial conjunctivitis 750355842 H10.9 resolvedof loxacin eye gtts completeds stacy villalobos, no drainage or discharge, denies discomfort . Recurrent falls 91015677 2 R29.6 s/p fall 03/05no acute injuries or reports of discomfort .nursing to continue post fall protocol. [id number] [facility] [address] [address] 04/04/2024 13:13:21 04/05/2024 13:32:19 Viral conjunctivitis 22106424 B30.9 left eyeleft sclera erythema, lower lid swelling( aggravated by rubbing) with clear drainage.n o itchiness or discomfort start azelastine gtt BID for 14 day.monito r for resolution patient encouraged to avoid rubbing eyes, apply cool compress for comfort. [id number] [facility] [address] [address] 04/07/2024 11:04:20 04/08/2024 12:46:40 Viral conjunctivitis 97763306 B30.9 left eye /stablelef t sclera erythema, lower lid swelling( aggravated by rubbing) with clear drainage.n o itchiness or discomfort start azelastine gtt BID for 14 day.- have not received med from pharmacy-m onitor for resolution patient encouraged to avoid rubbing eyes, apply cool compress for comfort. Acute urin laura tract infection 018767690 N39.0 see hpiwill start bactrim 400mg Q12 for 7 dayadd probiotic BIDencoura ged to have increased water consumptio n to flush out toxins Hypokalemia 52424066 E87 .6 subtle at 3.1will replete with kcl 20 meq times 2 daysmonito r for associated sx (weakness, cramping, twitching) patient to notify nursing staff with sx [id number] RE[facility] [address] [place] [address] 04/28/2024 11:26:55 04/29/2024 11:42:54 Impaired cognition 085377472 R41.89 stableCont inue supportive care, expect decline.HC P invokedMon itor mood and behaviors. Psych consult prn. Essential hypertension 64875106 I10 Continue bisoprolol 2.5 mg qd, lasix 20 mg qd, losartan 25 mg qd. amlodipine 5 mg qd and clonidine 0.1 mg BID.Monito r BP and labs. Congestive heart failure 47619753 I50.22 euvolemic. she has been stableCont inue bisoprolol 2.5 mg qd, lasix 20 mg qd and losartan 25 mg qd.Monitor resp. status, fluid status, wts and labs. Atrial fibrillation 4943 6004 I48.0 denies any chest pain or other associated sx,continu e amiodarone 200 mg qd.Continu e eliquis 5 mg BID for AC.Monitor HR and bleeding risk. Chronic ob structive pulmonary disease 87229325 J43.8 Continues at baseline.C ontinue Advair 100/25 mcg BID and albuterol MDI 2 puffs q 4 hrs prn.Monito r resp. status. Osteoporosis 68421116 M8 1.0 Continue cholecalci ferol 2000 IU qd, calcium 500 mg BID, and risedronat e 35 mg weeklyMoni tor as outpt. Gastroesop hageal reflux disease without esophagitis 519286209 K21.9 tolerating a regular diet, no reported GI upsetConti nue pantoprazo le 40 mg qd.Monitor sxs. Hyperlipidemia 13457354 E78.49 Continue atorvastat in 40 mg qd.Monitor labs as outpt. Mixed anxi ety and depressive disorder 034326949 F41.8 Continue bupropion ER 100 mg qd, Buspar 5 mg TID, clonidine 0.1 m BID, and trazodone 100 mg qhs,lexapr o 10 mg daily and hydroxyzin e 10 mg qdMonitor mood.Psych consult prn. Restless legs 48147092 G 25.81 Continue requip 0.25 mg qhs.Monito r sxs. Mixed urin laura incontinence 840237095 N39.46 Continue estring 2 mg q 3 monthsMoni tor urinary function.F /U with uro prn. Acute urin laura tract infection 723306000 N39.0 completed abxencoura ged to have increased water consumptio n to flush out toxins Hypokalemia 21479597 E87 .6 subtle at 3.1will replete with kcl 20 meq times 2 daysmonito r for associated sx (weakness, cramping, twitching) patient to notify nursing staff with sx [id number] [facility] [address] [place] [address] 05/09/2024 11:39:53 05/10/2024 13:50:01 Shoulder pain 29375349 M25.519 see HPInon traumatic right shoulder painGive now dose for tramadol 50 mg then tramadol 50 mg Q6 prnschedul e tylenol 1 g TIDxray 3 viewscan apply ice for pain or heat for comfort [id number] [facility] [address] [place] [address] 05/19/2024 09:40:12 05/23/2024 12:46:45 Shoulder pain 63901983 M25.519 non traumatic right shoulder pain-xray negative for any acute findings.c ontinue tramadol 50 mg Q6 prnschedul e tylenol 1 g TID [id number] [facility] [address] [place] [address] 06/16/2024 08:41:53 06/22/2024 12:46:48 Diplopia 18470893 H53.2 intermitte nt12/4 opthamolog y exam showed esophoria at distance , divergence insufficie ncy can be neurologic al neurology consult recommende d, otherwise follow up in 1 year. Impaired cognition 99687 6002 R41.89 Continue supportive care, expect decline.HC P invokedcon tinue to monitor mood and behaviors with recent med changes Essential hypertension 36419554 I10 Continue bisoprolol 2.5 mg qd, lasix 20 mg qd, losartan 25 mg qd. amlodipine 5 mg qd and clonidine 0.1 mg BID.Monito r BP and labs. Congestive heart failure 42335154 I50.22 euvolemic. she has been stableCont inue bisoprolol 2.5 mg qd, lasix 20 mg qd and losartan 25 mg qd.Monitor resp. status, fluid status, wts and labs. Atrial fibrillation 4943 6004 I48.0 denies any chest pain or other associated sx,will decrease amiodarone to 100 mg qd due to QTc prolongati ondiscusse d with nursing - will repeat ekg in 1 week, check BMP with magnesium levelConti nue eliquis 5 mg BID for AC.Monitor HR and bleeding risk. Chronic ob structive pulmonary disease 89940123 J43.8 Continue Advair 100/25 mcg BID and albuterol MDI 2 puffs q 4 hrs prn.Monito r resp. status. Osteoporosis 15294388 M8 1.0 Continue cholecalci ferol 2000 IU qd, calcium 500 mg BID, and risedronat e 35 mg weeklyMoni tor as outpt. Gastroesop hageal reflux disease without esophagitis 237252320 K21.9 tolerating a regular diet, no reported GI upsetpanto prazole discontinu ed due to QTc Hyperlipidemia 80411690 E78.49 Continue atorvastat in 40 mg qd.Monitor labs as outpt. Mixed anxi ety and depressive disorder 424226610 F41.8 nursing reports daily anxiety, currently on trazodone, hydroxyzin e, lexapro and bupropionp er pysch rec hydroxyzin e was changed from qd to prn. of noted it has been discontinu ed as possible cause of QTc prolongati on ( 467).bupro pion dose decreased to 37.5 mg for 7 days,then discontinu e.will recheck EKG in 1 week if QTc continues high will possible need to taper escitalopr amcontinue escitalopr am, scheduled trazodone, buspirones tart trazodone 25 mg bid prn anxiety, agitation, for [address] of hydroxyzin e Restless legs 87946061 G 25.81 Continue requip 0.25 mg qhs.Monito r sxs. Mixed urin laura incontinence 400670961 N39.46 Continue estring 2 mg q 3 monthsMoni tor urinary function.F /U with uro prn. [id number] [facility] [address] [facility] [address] [place] [address] 06/20/2024 10:53:20 06/21/2024 14:19:17 Diplopia 72764523 H53.2 intermitte nt12/4 opthamolog y exam showed esophoria at distance , divergence insufficie ncy can be neurologic al neurology consult recommende d, otherwise follow up in 1 year.she will discuss with family Mixed anxi ety and depressive disorder 295711245 F41.8 nursing reports daily anxiety, currently on trazodone, hydroxyzin e, lexapro and bupropionp er pysch rec hydroxyzin e was changed from qd to prn. of noted it has been discontinu ed as possible cause of QTc prolongati on ( 467).bupro pion dose decreased to 37.5 mg for 7 days,then discontinu e.will recheck EKG in 1 week if QTc continues high will possible need to taper escitalopr amcontinue escitalopr am, scheduled trazodone, buspironec ont trazodone 25 mg bid prn anxiety, agitation, for [address] of hydroxyzin e Atrial fibrillation 4943 6004 I48.0 denies any chest pain or other associated sx,Continu e eliquis 5 mg BID for AC.Monitor HR and bleeding risk. Prolonged QT interval 11 I45.81 HX afib.QTc 467GDR - amiodarone and protonix decreased, hydroxyzin e stoppedden ies any associated sx/ no dizziness, palpitatio n etc.repeat ekg in 1 week [id number], [address] [place] [address] 07/01/2024 08:22:16 07/04/2024 15:48:50 Respiratory tract congestion and cough 612333690 R05.9 non productive chest xray complete:T he lung johansen are clear without mass, infiltrate , congestion , or effusion. SARS-CoV-2 381491035 U07 .1 07/01 positive teststart Molnupirav ir 800 mg BID for 5 dayscontin ue supportive therapy with oxygen prnisolati on precaution [id number] [facility] [address] [place] [address] 07/04/2024 09:57:50 07/05/2024 09:55:44 Respiratory tract congestion and cough 365028902 R05.9 no cough appreciate d on exam SARS-CoV-2 471431336 U07 .1 07/01 positive testcopnti nue Molnupirav ir 800 mg BID for 5 dayscontin ue supportive therapy with oxygen prnisolati on precaution [id number] [address] [place] [address] 10/09/2024 10:55:30 10/10/2024 09:47:39 Mixed anxiety and depressive disorder 007498533 F41.8 stablecont inue escitalopr am, BusPIRone and trazodone Impaired cognition 37491 6002 R41.89 Continue supportive care, expect decline. P invokedcon tinue to monitor mood and behaviors with recent med changes Essential hypertension 35774147 I10 stableCont inue bisoprolol 2.5 mg qd, lasix 20 mg qd, losartan 25 mg qd. amlodipine 5 mg qd and clonidine 0.1 mg BID.Monito r BP and labs. Congestive heart failure 26028474 I50.22 euvolemic. stableCont inue bisoprolol 2.5 mg qd, lasix 20 mg qd and losartan 25 mg qd.Monitor resp. status, fluid status, wts and labs. Atrial fibrillation 4943 6004 I48.0 stablerate controlled cont amiodarone to 100 mg qdContinue eliquis 5 mg BID for AC.Monitor HR and bleeding risk. Chronic ob structive pulmonary disease 33171843 J43.8 stableCont inue Advair 100/25 mcg BID and albuterol MDI 2 puffs q 4 hrs prn.Monito r resp. status. Gastroesop hageal reflux disease without esophagitis 863138135 K21.9 stabletole rating a regular diet, no reported GI upsetpanto prazole discontinu ed due to QTc Hyperlipidemia 84020843 E78.49 Continue atorvastat in 40 mg qd.Monitor labs as outpt. [id number] Abhi Erickson MD [address] [place] [address] 10/12/2024 11:19:17 10/12/2024 11:58:19 Impaired cognition 451304701 R41.89 baseline impaired cognitionH CP invokedmon itor for behaviorsp sych eval prn Pruritic rash 61692526 L 28.2 eschar x 2 present left wristdoes not appear infectedsu rrounding pruritisat arax 25 mg q 8 prnmonitor for effect Health Concerns Section Related Observation LastModified by Organization Detai ls LastModified Time None Recorded Concern Status LastModified by Organization Details LastModified Time None Recorded Advance Directives Directive Y: Payers Encounter Date Sequence Insurance Name Policy Number Policy Burdick Covered Member ID Burdick Member ID Guarantor Name 06/20/2024 2 CHRISTOPHER () Hillary Perdido [id number] Hillary Perdido 06/20/2024 1 MEDICARE B-[place]: [facility] Hillary A Perdido [id number] Hillary Naila 07/01/2024 2 CHRISTOPHER () Hillary Naila [id number] Hillary Perdido 07/01/2024 1 [place]IC[place] [facility] Hillary A Perdido [id number] Hillary Perdido 07/04/2024 2 () Hillary Perdido [id number] Hillary Perdido 07/04/2024 1 [place]IC[place] [facility] Hillary A Perdido [id number] Hillary Perdido 10/09/2024 2 () Hillary Naila [id number] Hillary Perdido 10/09/2024 1 MEDICARE B-[place]: [facility] Hillary A Naila [id number] Hillary Perdido 10/12/2024 2 () Hillary Perdido [id number] Hillary Naila 10/12/2024 1 MEDICARE B-[place]: [facility] Hillary A Naila [id number] Hillary Naila Notes Date Note Type Note Provider Name and Address Organization Details Recorded Time 06/20/2024 text/html Hillary is a [age] yr old LTC resident seen acute rounding visit. Follow up for labs noted within normal limits. GDR in progress for prolong qtc. past medical history that includes Afib, HTN, COPD,GERD, CHF, depression, cognitive changes,left femur and hematoma. [facility] [address] [facility], [address], [place], [address], [facility] 06/20/2024 12:05:23 07/01/2024 text/html Hillary is a [age] yr old LTC resident seen acute rounding visit per nursing request, on 06/30 nursing reported patient had a low grade temp and congested cough. resp panel and chest xray ordered. past medical history that includes Afib, HTN, COPD,GERD, CHF, depression, cognitive changes,left femur and hematoma. [facility] [address] [facility], [address], [place], [address], [facility] 07/01/2024 12:47:57 07/04/2024 text/html Hillary is a [age] yr old LTC resident seen for acute rounding visit follow up for COVID. On exam she is alert and verbal, no resp. distress noted, breathing is easy and unlabored, LS CTA. VSS afebrile. There are no acute nursing concerns. past medical history that includes Afib, HTN, COPD,GERD, CHF, depression, cognitive changes,left femur and hematoma. [facility] [address] [facility], [address], [place], [address], [facility] 07/04/2024 12:33:28 10/09/2024 text/html Hillary is a [age] yr old LTC resident seen for routine rounding. She has been at her baseline in [facility]. no changes in appetite or elimination, there are no acute nursing concerns. followed by [facility] recently seen 09/05/24, for medication management. medication adjustment over the last 6 months effective. Nursing reports trend of decreased anxiety and agitation. [facility] [address] [facility], [address], [place], [address], [facility] 10/10/2024 09:47:38 10/12/2024 text/html Patient is a 74 yo female resident asked to eval for MD visit with pruritis left hand. Patient with dementia at baseline, brother in room helps with hx. Patient sitting in wheelchair in [facility]. Abhi Erickson MD [address] [facility], [address], [place], [address], [facility] 10/12/2024 11:58:18 OBGyn Episode No OBEpisode recorded.
--- OUTSIDE RECORDS SUMMARY | 2024-10-13 05:38 | XMS_ITS | Continuity of Care Document ---
Author Organization [facility], [facility] Address [address] [place] [address] Care Team Providers Care Centralized Traffic Control Operator Name Role Phone MARCIO DONG 3RD FLOOR OTHER [phone] Assessment Encounter Date Assessment Date Assessment LastModified by Organization Details LastModified Time 10/09/2024 10/09/2024 12/5: labs ordered for 06/20 bmp with magnesium level. [email or web address] Not available 10/10/2024 09:36:46 Plan of Treatment [...] Address Organization Details Recorded Time Recurrent falls 223027535 Active 2022 JUAN MANUEL MORALES NP [address] , [address], [place], [address], [facility] [employer] 3 11:13:43 Osteoarthr itis 356606526 Active 2022 JUAN MANUEL MORALES NP [address] , [address], [place], [address], [facility] [employer] 3 11:13:48 Chronic obstructiv e pulmonary disease 98901612 Active 2022 JUAN MANUEL MORALES NP [address] , [address], [place], [address], [facility] [employer] 3 11:13:52 Gastroesop hageal reflux disease without esophagiti s 478440050 Active 2022 JUAN MANUEL MORALES NP [address] , [address], [place], [address], [facility] 3 11:13:58 Congestive heart failure 21294785 Active 2022 JUAN MANUEL MORALES NP [address], [address], [place], [address], [facility] 3 11:14:03 Atrial fibrillati on 09375850 Active 2022 JUAN MANUEL MORALES NP [address], [address], [place], [address], [facility] 3 11:14:08 Hematoma of right thigh 657727219267 00823 Active 2022 JUAN MANUEL MORALES NP [address], [address], [place], [address], [facility] 3 11:14:21 Essential hypertensi on 01051530 Active 2022 JUAN MANUEL MORALES NP [address], [address], [place], [address], [facility] 3 11:40:46 Hyperlipid emia 99028573 Active 2022 JUAN MANUEL MORALES NP [address], [address], [place], [address], [facility] 3 11:41:07 Mixed anxiety and depressive disorder 384591832 Active 2022 JUAN MANUEL MORALES NP [address], [address], [place], [address], [facility] 3 11:41:48 Impaired cognition 498940886 Active 2022 Sandra Morrison MD [address], [address], [place], [address], [facility] 3 01:04:56 Overactive urinary bladder 210355276 Active 2022 Sandra Morrison MD [address], [address], [place], [address], [facility] 3 01:13:05 Dry eyes 151456487 Active 2022 Sandra Morrison MD [address], [address], [place], [address], [facility] 3 01:14:09 Hematoma 213260562 Active 2022 left buttock JUAN MANUEL MORALES NP [address] [facility], [address], [place], [address], [facility] 3 13:03:34 Leukocytos is 267404401 Active 2023 JUAN MANUEL MORALES NP [address] [facility], [address], [place], [address], [facility] [employer] 4 12:21:55 Restless legs 06573293 Active 2023 Sandra Morrison MD [address] [facility], [facility] [address], [place], [address], [facility] [employer] 4 18:41:39 Mixed urinary incontinen ce 557845597 Active 2023 Sandra Morrison MD [address] [facility], [facility] [address], [place], [address], [facility] [employer] 4 18:42:46 Bacterial conjunctiv itis 985388185 Active 2023 REGI [facility]N [address] [address], [place], [address], [facility] [employer] 4 17:01:03 Notes:Some problems listed i n Document: #[id number] could not be added to this patient's [...] 120 mm[Hg] 70 mm[Hg] REGI [facility]N [address] [facility], [address], [place], [address], [facility] 5 09:37:30 Social History Question Answer Notes LastModified by Organizat ion Details LastModified Time Tobacco Smoking Status Former Smoker JUAN MANUEL MORALES NP [address] [facility], [address], [place], [address], [employer] [facility] 08/08/2022 11:11:20 Do You Have An Advance Directive? Yes Information not available 08/11/2022 What Is Your Level Of Alcohol Consumption? None Information not available 08/08/2022 What Is Your Code Status? Full Code Information not available 08/11/2022 Where Do You Live? [facility], Previously Lived Alone, No Stairs Information not available 05/15/2023 Legal Guardian? No Informati on not available 08/12/2022 Do You Have A Medical Power Of New Home Sales Consultant? Yes Information not available 08/12/2022 What Was [...] adjuvanted, quadrivalent, PF 05/22/2022 completed Maryam hernandez, [facility] [employer] [facility] 07/30/2023 12:41:28 Past Encounters Encounter ID Performer Location Encounter Start Date Encounter Closed Date Diagnosis/Indication Diagnosis SNOMED-CT Code Diagnosis ICD10 Code Diagnosis Note [id number] [facility] [address] [facility] [place] [address] 10/09/2024 10:55:30 10/10/2024 09:47:39 Mixed anxiety and depressive disorder 341055329 F41.8 stablecont inue escitalopr am, BusPIRone and trazodone Impaired cognition 55761 6002 R41.89 Continue supportive care, expect decline.HC P invokedcon tinue to monitor mood and behaviors with recent med changes Essential hypertension 62226424 I10 stableCont inue bisoprolol 2.5 mg qd, lasix 20 mg qd, losartan 25 mg qd. amlodipine 5 mg qd and clonidine 0.1 mg BID.Monito r BP and labs. Congestive heart failure 40144391 I50.22 euvolemic. stableCont inue bisoprolol 2.5 mg qd, lasix 20 mg qd and losartan 25 mg qd.Monitor resp. status, fluid status, wts and labs. Atrial fibrillation 4943 6004 I48.0 stablerate controlled cont amiodarone to 100 mg qdContinue eliquis 5 mg BID for AC.Monitor HR and bleeding risk. Chronic ob structive pulmonary disease 64672291 J43.8 stableCont inue Advair 100/25 mcg BID and albuterol MDI 2 puffs q 4 hrs prn.Monito r resp. status. Gastroesop hageal reflux disease without esophagitis 095296610 K21.9 stabletole rating a regular diet, no reported GI upsetpanto prazole discontinu ed due to QTc Hyperlipidemia 86819717 E78.49 Continue atorvastat in 40 mg qd.Monitor labs as outpt. Health Concerns Section Related Observation LastModified by Organization Detai ls LastModified Time None Recorded Concern Status LastModified by Organization Details LastModified Time None Recorded Payers Encounter Date Sequence Insurance Name Policy Number Policy Burdick Covered Member ID Burdick Member ID Guarantor Name 10/09/2024 2 () Hillary Aurora [id number] Hillary Aurora 10/09/2024 1 MEDICARE B-[place]: [facility] Hillary Pena Naila [id number] Hillary Naila Notes Date Note Type Note Provider Name and Address Organization Details Recorded Time 10/09/2024 text/html Hillary is a [age] yr old LTC resident seen for routine rounding. She has been at her baseline in [facility]. no changes in appetite or elimination, there are no acute nursing concerns. followed by [facility] recently seen 09/05/24, for medication management. medication adjustment over the last 6 months effective. Nursing reports trend of decreased anxiety and agitation. [facility] [address] [facility], [address], [place], [address], [facility] 10/10/2024 09:47:38 OBGyn Episode No OBEpisode recorded.
--- OUTSIDE RECORDS SUMMARY | 2024-10-13 05:38 | XMS_ITS | Continuity of Care Document ---
Author Organization [facility], [facility] Address [address] [place] [address] Care Team Providers Care Scalper Operator Name Role Phone MARCIO DONG 3RD FLOOR OTHER Assessment No assessment recorded. Plan of Treatment Reminders Order Date Submit [...] Address Organization Details Recorded Time Recurrent falls 986547758 Active 2022 JUAN MANUEL MORALES NP [address] , [address], [place], [address], [employer] 3 11:13:43 Osteoarthr itis 225438093 Active 2022 JUAN MANUEL MORALES NP [address] , [address], [place], [address], [facility] 3 11:13:48 Chronic obstructiv e pulmonary disease 61073888 Active 2022 JUAN MANUEL MORALES NP [address] , [address], [place], [address], [facility] 3 11:13:52 Gastroesop hageal reflux disease without esophagiti s 220022063 Active 2022 JUAN MANUEL MORALES NP [address] , [address], [place], [address], [facility] 3 11:13:58 Congestive heart failure 82946085 Active 2022 JUAN MANUEL MORALES NP [address] , [address], [place], [address], [facility] 3 11:14:03 Atrial fibrillati on 48338111 Active 2022 JUAN MANUEL MORALES NP [address], [address], [place], [address], [facility] 3 11:14:08 Hematoma of right thigh 270650636787 63966 Active 2022 JUAN MANUEL MORALES NP [address], [address], [place], [address], [facility] 3 11:14:21 Essential hypertensi on 16238820 Active 2022 JUAN MANUEL MORALES NP [address], [address], [place], [address], [facility] 3 11:40:46 Hyperlipid emia 64268738 Active 2022 JUAN MANUEL MORALES NP [address], [address], [place], [address], [facility] 3 11:41:07 Mixed anxiety and depressive disorder 454238686 Active 2022 JUAN MANUEL MORALES NP [address], [address], [place], [address], [facility] 3 11:41:48 Impaired cognition 996461086 Active 2022 Sandra Morrison MD [address], [address], [place], [address], [facility] 3 01:04:56 Overactive urinary bladder 693598567 Active 2022 Sandra Morrison MD [address], [address], [place], [address], [facility] 3 01:13:05 Dry eyes 707579189 Active 2022 Sandra Morrison MD [address], [place], [address], [facility] 3 01:14:09 Hematoma 143553361 Active 2022 left buttock JUAN MANUEL MORALES NP [address], [address], [place], [address], [facility] 3 13:03:34 Leukocytos is 546756041 Active 2023 JUAN MANUEL MORALES NP [address] [facility], [address], [place], [address], [facility] 4 12:21:55 Restless legs 76747916 Active 2023 Sandra Morrison MD [address] [facility], [facility] [address], [place], [address], [facility] 4 18:41:39 Mixed urinary incontinen ce 851098246 Active 2023 Sandra Morrison MD [address] [facility], [facility] [address], [place], [address], [facility] 4 18:42:46 Bacterial conjunctiv itis 319965960 Active 2023 RE[facility]N [address] [facility], [facility] [address], [place], [address], [facility] 4 17:01:03 Notes:Some problems listed i n Document: #[id number] could not be added to this patient's [...] Available Not Available Not Avai lable Vitals None Recorded Social History Question Answer Notes LastModified by Organizat ion Details LastModified Time Tobacco Smoking Status Former Smoker JUAN MANUEL MORALES NP [address] [facility], [facility] [address], [place], [address], [facility] 08/08/2022 11:11:20 Do You Have An Advance Directive? Yes Information not available 08/11/2022 What Is Your Level Of Alcohol Consumption? None Information not available 08/08/2022 What Is Your Code Status? Full Code Information not available 08/11/2022 Where Do You Live? [facility], Previously Lived Alone, No Stairs Information not available 05/15/2023 Legal Guardian? No Informati on not available 08/12/2022 Do You Have A Medical Power Of Continuous Mining Machine Lode Miner? Yes Information not available 08/12/2022 What Was [...] Influenza, adjuvanted, quadrivalent, PF 05/22/2022 completed Maryam hernandez [place] - [facility] 07/30/2023 12:41:28 Past Encounters Encounter ID Performer Location Encounter Start Date Encounter Closed Date Diagnosis/Indication Diagnosis SNOMED-CT Code Diagnosis ICD10 Code Diagnosis Note [id number] [facility] [address] [facility] [place] [address] 10/09/2024 10:55:30 10/10/2024 09:47:39 Mixed anxiety and depressive disorder 471695873 F41.8 stablecont inue escitalopr am, BusPIRone and trazodone Impaired cognition 53284 6002 R41.89 Continue supportive care, expect decline.HC P invokedcon tinue to monitor mood and behaviors with recent med changes Essential hypertension 00638227 I10 stableCont inue bisoprolol 2.5 mg qd, lasix 20 mg qd, losartan 25 mg qd. amlodipine 5 mg qd and clonidine 0.1 mg BID.Monito r BP and labs. Congestive heart failure 94545592 I50.22 euvolemic. stableCont inue bisoprolol 2.5 mg qd, lasix 20 mg qd and losartan 25 mg qd.Monitor resp. status, fluid status, wts and labs. Atrial fibrillation 4943 6004 I48.0 stablerate controlled cont amiodarone to 100 mg qdContinue eliquis 5 mg BID for AC.Monitor HR and bleeding risk. Chronic ob structive pulmonary disease 62391783 J43.8 stableCont inue Advair 100/25 mcg BID and albuterol MDI 2 puffs q 4 hrs prn.Monito r resp. status. Gastroesop hageal reflux disease without esophagitis 693484119 K21.9 stabletole rating a regular diet, no reported GI upsetpanto prazole discontinu ed due to QTc Hyperlipidemia 65799712 E78.49 Continue atorvastat in 40 mg qd.Monitor labs as outpt. [id number] Abhi Erickson MD [address] [place] [address] 10/12/2024 11:19:17 10/12/2024 11:58:19 Impaired cognition 438266431 R41.89 baseline impaired cognitionH CP invokedmon itor for behaviorsp sych eval prn Pruritic rash 79111011 L 28.2 eschar x 2 present left wristdoes not appear infectedsu rrounding pruritisat arax 25 mg q 8 prnmonitor for effect Health Concerns Section Related Observation LastModified by Organization Detai ls LastModified Time None Recorded Concern Status LastModified by Organization Details LastModified Time None Recorded Payers Encounter Date Sequence Insurance Name Policy Number Policy Burdick Covered Member ID Burdick Member ID Guarantor Name 10/12/2024 2 CHRISTOPHER (CHRISTOPHER) Hillary Naila [id number] Hillary Naila 10/12/2024 1 [place]ICARE B-[place]: [employer] [facility] Hillary Pena Naila [id number] Hillary Mcdonough Notes Date Note Type Note Provider Name and Address Organization Details Recorded Time 10/12/2024 text/html Patient is a 74 yo female resident asked to eval for MD visit with pruritis left hand. Patient with dementia at baseline, brother in room helps with hx. Patient sitting in wheelchair in [facility]. Abhi Erickson MD [address] [place] [address], [address], [place], [address], [facility] [employer] 10/12/2024 11:58:18 OBGyn Episode No OBEpisode recorded.
[2024-10-13 06:09] LABS: Basophils Absolute Auto 0.2 X10*3/uL (0.0-0.2); Eosinophils Absolute Auto 0.3 X10*3/uL (0.0-0.4); Eosinophils Percent Auto 3.7 % (0-4); Hematocrit 37.4 % (37.0-47.0); Hemoglobin 11.7 g/dl (12.0-16.0); Imm Gran Abs Auto 0.07 X10*3/uL (0.00-0.03); Imm Gran Pct Auto 0.8 % (0.0-0.4); Lymphocytes Absolute Auto 1.4 X10*3/uL (1.2-4.9); Lymphocytes Percent Auto 15.6 % (20-40); Mean Corpuscular HGB Conc 31.3 g/dl (31.0-35.0); Mean Corpuscular Hemoglobin 23.7 pg (27.0-33.0); Mean Corpuscular Volume 75.7 fL (80.0-98.0); Mean Platelet Volume 10.7 fL (9.4-12.3); Monocytes Absolute Auto 0.4 X10*3/uL (0.1-1.2); Monocytes Percent Auto 4.4 % (2-11); Neutrophils Absolute Auto 6.7 x10*3/uL (2.0-8.3); Neutrophils Percent Auto 73.5 % (45-73); Platelet Count 902 X10*3/uL (160-400); Red Blood Count 4.94 X10*6/uL (4.20-5.50); Red Cell Distribution Width 19.8 % (11.0-16.0); White Blood Count 9.2 X10*3/uL (4.8-10.8)
[2024-10-13 06:22] LABS: Alanine Aminotransferase 16 U/L (0-31); Albumin Level 3.2 g/dL (3.5-5.0); Alkaline Phosphatase 75 U/L (39-117); Anion Gap 13 (12-20); Aspartate Amino Transferase 26 U/L (5-31); Bilirubin Direct 0.2 mg/dL (0.0-0.5); Bilirubin Total 0.4 mg/dL (0.0-1.0); Blood Urea Nitrogen 13 mg/dL (9-16); Calcium 8.6 mg/dL (8.4-10.2); Carbon Dioxide 22 mmol/L (22-29); Chloride 111 mmol/L (96-108); Cholesterol 95 mg/dL (<200); Estimated Glomerular Filt Rate > 60; Glucose Random 109 mg/dL (60-115); HDL Cholesterol 39 mg/dL (>40); LDL Cholesterol Calculated 46 mg/dL (<100); Potassium 3.3 mmol/L (3.3-5.1); Sodium 143 mmol/L (135-145); Total Protein 5.7 g/dL (6.5-8.0); Triglycerides 50 mg/dL (<150)
[2024-10-13 06:37] LABS: Thyroid Stimulating Hormone 1.12 uIU/mL (0.32-4.0)
== END 2024-10-13 05:36 | disposition home or self-care (01) ==
LOC: HO.MMNH3L 05:35
PROVIDERS: Visit Provider Family Medicine
DX: I10 Essential (primary) hypertension (principal)
CPT/HCPCS: 36415; 80053; 80061; 82248; 84443; 85025

== ENCOUNTER 2024-10-24 05:47 | Outpatient (REF) | payer MEDICARE, SELFPAY ==
[2024-10-24 05:37] LABS: MANUAL DIFF FLAG NO
--- OUTSIDE RECORDS SUMMARY | 2024-10-24 06:02 | XMS_ITS | Data Portability ---
Author Organization [place] [facility] SANTO gonzalez Inpt Address [address] [place] [address] Care Team Providers Care Debubblizer Name Role Phone ANTON JEWELL Primary Care Provider ANTON JEWELL Referring Provider ANGE BARROW Primary Care Provider Assessment Encounter Date Assessment Date Assessment LastModified [...] & TFESI with 95% relief Physical Therapy: [facility] 04/2019 Surgeries: T11, L2, and [...] pain. I reviewed the MRI done at [facility] which shows a subacute T12 fracture below her previous T11 kyphoplasty and we will work to add her onto the schedule this week for T12 kyphoplasty plus or minus epidural injection. meriatta Not available 05/15/2020 13:17:03 05/17/2020 05/17/2020 Thoracic kyphoplasty Pre/postop diagnosis: 1. T12 katia fracture. 2. Thoracic pain and lumbar pain 3. Osteoporosis. Procedure: 1. [id number] 2. L3-4 translaminar epidural injection Surgeon: Gorge [...] - Caudal SHOLA with conscious sedation 2019 [email or web address] Irene Chu MD, [address] [place] [address], [facility] [address], [address], 0 11:02:47 Surgeries kyphoplast y, thoracic (SURG) 2019 [email or web address] Gorge Edward MD, [address] [place] [address], [address], [place], [address], 0 13:47:09 Imaging None recorded. Medication Orders None recorded. Patient TargetsNo targets recorded. Patient InstructionsNo instructions recorded. Reason for Referral None Reported. Results Created Date Observation Date Name Description Value Unit Range Abnormal Flag Note LastModifiedBy Organization Detail LastModifiedTime 05/15/20 20 05/09/2020 MRI, thora cic spine , w/o contr ast No observ ation record ed. [email or web address] Not Available 09/2019 15:17:08 Result Notes None recorded. Problems Name Problem SNOMED Code Status Onset Date Resolution Date Notes Provider Name and Address Organization Details Recorded Time Low back pain 933438059 Active 2018 Meri Mejia null [place] - [facility] 9 10:19:48 Thoracic back pain 875718086 Active Shameka Myers null [place] - [facility] 9 09:43:28 Fracture of humerus 84989362 Active 2013 Spiral moderately displaced left humerus fracture. Roro hernandez [place] - [facility] 4 15:36:34 Problem Notes None recorded. Procedures Surgical History Date Name Laterality Status Provider Name and Address Organization Details Recorded Time 07/23/19 21 .Imaging Interpretation completed Sandra Hernándze APRN-HAI [address] [place] [address],[address], [place], [address], [place] [facility] 07/23/2020 08:53:37 05/23/20 20 .Imaging Interpretation completed RAFAL Perrin [address] [place] [address],[address], [place], [address], [place] [facility] 05/23/2020 10:26:09 05/17/20 20 procedure completed Birgit Sanchez [place] - [facility] 05/17/2020 07:04:13 04/27/20 20 IM Injection Combo (Depo/Tor/Lido) completed IRENE KELLER MD [address] [place] [address],[address], [place], [address], [place] [facility] 04/27/2020 09:44:32 [...] 19 Back/Neck/Spine Surgery completed IRENE KELLER MD [address] [place] [address],[address], [place], [address], [place] [facility] 03/03/2019 11:01:38 10/20/19 19 .Imaging Interpretation completed SAMSON SIERRA [address] [place] [address],[address], [place], [address], [facility] 10/19/2018 10:04:13 09/28/19 19 Back/Neck/Spine Surgery completed Lennox Bullock [place] - [facility] 09/27/2018 09:34:37 09/23/19 19 .Imaging Interpretation completed SAMSON IBARRA [address] [place] [address],[address], [place], [address], [facility] 09/24/2018 09:28:41 12/19/19 18 Other completed SAMSON IBARRA [address] [place] [address],[address], [place], [address], [facility] 09/24/2018 09:10:58 06/01/20 07 procedure on knee completed SAMSON IBARRA [address] [place] [address],[address], [place], [address], [facility] 09/24/2018 09:09:13 07/13/19 00 Other completed SAMSON IBARRA [address] [place] [address],[address], [place], [address], [facility] 09/24/2018 09:08:49 Gastric Bypass completed Michelle Perez [place] - [facility] 12/12/2013 15:55:51 Imaging Results Imaging Date Name Status LastModified by Organiz ation Details LastModified Time 05/09/2020 MRI, thoracic spine, w/o contrast completed [id number] Information not available 05/15/2020 15:17:08 Procedure Notes [...] 10 189 mm[Hg] 97 mm[Hg] Corrie Greenwood [facility] 0 09:20:59 Date Recorded Body height Provider Name an d Address Organization Details Last Updated DateTime 05/15/2020 170.18 cm Gorge turner MD [address] [facility],[address], [place], [address], [facility] 05/15/2020 13:18:58 Date Recorded Body height Body temperature Body mass index (BMI) Body weight Pain severity - 0-10 verbal numeric rating [Score] - Reported Respiratory rate Oxygen saturation Oxygen saturation in Arterial blood by Pulse oximetry Heart rate Systolic blood pressure Diastolic blood pressure Provider Name and Address Organization Details Last Updated DateTime 0 170.18 cm 98.1 [degF] 26.5 kg/m2 29337.1 1 g 9 16 /min 97 % 97 % 92 /min 170 mm[Hg] 100 mm[Hg] Birgit Sanchez [facility] 0 07:03:28 Date Recorded Body height Body [...] /min 174 mm[Hg] 93 mm[Hg] Suzi Marshall [facility] 0 08:50:28 Date Recorded Body height Body temperature Oxygen saturation Oxygen saturation in Arterial blood by Pulse oximetry Heart rate Body mass index (BMI) Body weight Systolic blood pressure Diastolic blood pressure Provider Name and Address Organization Details Last Updated DateTime 1 170.18 cm 97.4 [degF] 98 % 98 % 90 /min 26.3 kg/m2 35657.5 2 g 150 mm[Hg] 95 mm[Hg] uL MARTINEZ [place] - [facility] 1 08:27:49 Social History Question Answer Notes LastModified by Organizat ion Details LastModified Time Tobacco Smoking Status Current Every Day Smoker Not Available [facility] 05/15/2020 03:44:21 What Is Your Level Of Alcohol Consumption? None [id number] Information not available 05/15/2020 Are You Blind Or Do You Have Difficulty Seeing? No [id number] Information not available 05/15/2020 In The 14 Days Before Symptom Onset, Have You Had Close Contact With A Laboratory-confir med COVID-19 While That Case Was Ill? No [id number] Information not available 05/15/2020 If Patient Spent Time In [facility] - Does The Patient Live In [facility]? No [facility] Information not available 11/01/2019 In The 14 Days Before Symptom Onset, Have You Had Close Contact With A Person Who Is Under Investigation For COVID-19 While That Person Was Ill? No [id number] Information not available 05/15/2020 In The 14 Days Before Symptom Onset, Did The Patient Spend Time In [facility]? No [facility] Information not available 11/01/2019 Have You Been To An Area Known To Be High Risk For COVID-19? No [id number] Information not available 05/15/2020 Are You Currently Employed? No [id number] Information not available 05/15/2020 Are You Deaf Or Do You Have Serious Difficulty Hearing? No [id number] Information not available 05/15/2020 Which Of Your Hands Is Dominant? Right [id number] Information not available 05/15/2020 Network Support Analyst? No Information no t available 12/12/2013 Blower Installer? No Information no t available 12/12/2013 Marital Status Unknown Informatio n not available 12/12/2013 What Was The Date Of Your Most Recent Tobacco Screening? 02/02/2019 [id number] Information not available 05/15/2020 How Much Tobacco Do You Smoke? No Pt States She Is Smoking Roughly About 4 Cigs A Day [id number] Information not available 05/15/2020 Do You Use Any Illicit Or Recreational Drugs? No [id number] Information not available 05/15/2020 Sex: Unknown Functional Status Question Answer Note LastModified by Organization D etails LastModified Time Do you have difficulty walking or climbing stairs? Yes [id number] Information not available 05/15/2020 Do you have difficulty doing errands alone? No [id number] Information not available 05/15/2020 Do you have difficulty dressing or bathing? No [id number] Information not available 05/15/2020 Mental Status Question Answer Note LastModified by Organization D etails LastModified Time Do you have difficulty concentrating, remembering or making decisions? No [id number] Information no t available 05/15/2020 Family History Relationship Description Onset Age of this Age Resolved Age Notes LastModified by Organization Details LastModified Time Father Non-Hodgkin' s lymphoma (clinical) Not available 12/22 09:45:32 Mother History of cerebrovascu lar accident Not available 06/2014 09:45:32 Medical History Condition Response Coronary Artery Disease N Gout N Blood Transfusion N Head Trauma/Injury N Emphysema N Depression N COPD N PVD N Vascular Disease N Oxygen Use N Drug Abuse N Headaches/Migraines N Do you have a pacemaker? N Do you have Sleep Apnea? N Anxiety Disorder N Hyperlipidemia/ High Cholesterol N Blood Clot(s) or DVT(s) N Have you ever had a cardiac catherizatio n? N Acid Reflux (GERD) N Cancer N Stroke N Have you ever had open heart surgery? N Crohn's Disease N Back Injury N Alcohol Overuse/Alcohol Abuse N Liver Disease N Rheumatoid Arthritis N Schizophrenia N Hypertension/High Blood Pressure Y Fibromyalgia N Atrial fibrillation N Autoimmune disorders N Have you ever [...] use a C-pap machine? N Heart Attack ([place]) N Mental Illness N Extreme Weight Loss [...] ICD10 Code Diagnosis Note [id number] Blake Oneal [facility] Main Office [address] [facility] [address] [place] [address] 12/22/2013 09:12:20 12/26/2013 15:30:27 Fracture of humerus 78468358 [id number] SAMSON IBARRA [facility] Main [address] [place] [address],[address] [place] [address] 09/22/2018 07:29:35 09/22/2018 17:05:27 Low back pain 393023488 M54.5 Lumbar radiculopathy 128 M54.16 [id number] SAMSON IBARRA [facility] Main [address] [place] [address],[address] [place] [address] 09/24/2018 08:57:30 09/24/2018 09:40:12 Low back pain 541722275 M54.5 multiple compressio n fractures, T and L spine Posterior compartment low back pain 650647242 M54.5 Thoracic back pain 58487 8004 M54.6 Lumbar radiculopathy 128 M54.16 [id number] Gorge Edward MD [facility] Procedure Room [address] [place] [address],[address] [place] [address] 09/27/2018 09:10:21 09/27/2018 13:02:13 [id number] SAMSON SIERRA [facility] Main [address] [place] [address],[address] [place] [address] 10/05/2018 08:52:26 10/05/2018 10:09:33 Low back pain 621282482 M54.5 Lumbar radiculopathy 128 570032 M54.16 Thoracic back pain 59425 8004 M54.6 [id number] SAMSON SIERRA [address] [place] [address] 10/19/2018 08:03:21 10/19/2018 09:03:49 Low back pain 364212217 M54.5 Lumbar radiculopathy 128 090895 M54.16 [id number] SAMSON SIERRA [address] [place] [address] 11/11/2018 07:48:23 11/11/2018 08:54:35 Low back pain 251492326 M54.5 Lumbar radiculopathy 128 863371 M54.16 [id number] Candy Amaya [address] [place], [place] [address] 02/02/2019 09:47:51 02/02/2019 10:19:11 Low back pain 173635679 M54.5 Lumbar radiculopathy 128 743291 M54.16 [id number] IRENE KELLER MD [facility] Procedure Room [address] [place] [address] 03/03/2019 08:06:43 03/03/2019 09:56:40 Chronic low back pain 022808662 M54.5 Lumbar radiculopathy 128 M54.16 [id number] IRENE KELLER MD [place] [address] 03/28/2019 09:17:16 03/28/2019 09:46:36 Chronic low back pain 109385671 M54.5 Lumbar radiculopathy 128 071230 M54.16 [id number] IRENE KELLER MD [place] [address] 06/13/2019 07:58:13 06/13/2019 08:29:06 Low back pain 461826786 M54.5 Lumbar radiculopathy 128 M54.16 [id number] IRENE KELLER MD [facility] Procedure Room [address] [place] [address],[address] [place] [address] 07/08/2019 12:43:24 07/08/2019 14:17:51 Chronic low back pain 089255108 M54.5 Lumbar radiculopathy 128 452278 M54.16 [id number] IRENE KELLER MD [address] [place] [address] 1 07/21/2019 08:23:30 07/21/2019 09:26:44 Chronic low back pain 070791646 M54.5 Lumbar radiculopathy 128 830575 M54.16 [id number] IRENE KELLER MD [address] [place] [address] 1 08/16/2019 08:07:07 08/16/2019 10:35:00 Low back pain 103111456 M54.5 Lumbar radiculopathy 128 076393 M54.16 [id number] IRENE KELLER MD [facility] Procedure Room [address] [place] [address],[address] [place] [address] 09/19/2019 07:47:43 09/19/2019 09:18:26 Lumbar radiculopathy 699219445 M54.16 Chronic low back pain 27 7336503 M54.5 [id number] IRENE KELLER MD [address] [place] [address] 11/01/2019 10:01:27 11/01/2019 10:41:04 Low back pain 517405270 M54.5 Arthropath y of lumbar facet joint 710297955 M46.96 [id number] IRENE KELLER MD [facility] Procedure Room [address] [place], [place] [address] [place], [place] [address] 1 12/21/2019 08:22:02 12/21/2019 10:27:45 Chronic low back pain 862337550 M54.5 Arthropath y of lumbar facet joint 427590099 M46.96 [id number] IRENE KELLER MD [facility] Main [address] [place], [place] [address] [place] [address] 12/23/2019 08:26:03 12/23/2019 08:57:38 Low back pain 471928951 M54.5 Arthropath y of lumbar facet joint 221395909 M46.96 [id number] IRENE KELLER MD [facility] Procedure Room [address] [place] [address] 1 02/08/2020 08:02:29 02/08/2020 09:15:40 Chronic low back pain 044589718 M54.5 Arthropath y of lumbar facet joint 441731469 M46.96 [id number] IRENE KELLER MD [place] [address] 02/10/2020 11:27:45 02/10/2020 12:25:15 Low back pain 249733802 M54.5 Arthropath y of lumbar facet joint 745259698 M46.96 [id number] IRENE KELLER MD [facility] Procedure Room [address] [place] [address] 1 04/04/2020 07:25:19 04/04/2020 10:37:27 Chronic low back pain 999845374 M54.5 Arthropath y of lumbar facet joint 089875088 M46.96 [id number] IRENE KELLER MD [facility] Main [address] [place] [address] 1 04/27/2020 09:01:48 04/27/2020 09:47:44 Low back pain 691669370 M54.5 Lumbar radiculopathy 128 864777 M54.16 [id number] Gorge Edward MD [facility] Main [address] [place] [address] 1 05/15/2020 13:15:42 05/15/2020 14:06:11 Compression fracture of thoracic vertebra 2321546838 104 M48.54XG T-11&L-4 (same bottle) [id number] Gorge Edward MD [facility] Procedure Room [address] [place], [place] [address] [place] [address] 05/17/2020 06:51:44 05/18/2020 10:14:45 [id number] Sandra Hernández APRN-MANAGER CLEANING [facility] Main [address] [place] [address] 05/23/2020 08:42:26 05/23/2020 09:10:42 Low back pain 232860426 M54.5 Thoracic back pain 22214 8004 M54.6 Wedge frac ture of thoracic vertebra 979377847 S22.000D T12 [id number] Sandra Hernández APRN-MANAGER CLEANING [facility] Main [address] [place] [address] 07/23/2020 08:08:02 07/23/2020 08:53:22 Low back pain 300849993 M54.5 Thoracic back pain 82839 8004 M54.6 Health Concerns Section Related Observation LastModified by Organization Detai ls LastModified Time None Recorded Concern Status LastModified by Organization Details LastModified Time None Recorded Advance Directives Directive None Recorded Payers Encounter Date Sequence Insurance Name Policy Number Policy Burdick Covered Member ID Burdick Member ID Guarantor Name 04/27/2020 1 [place] Hillary A Naila [id number] [place] A [place] 04/27/2020 2 [facility] (MEDICARE SUPPLEMENT) Hillary A [place] [id number] Hillary A [place] 05/15/2020 1 [place] [id number] Hillary A [place] 05/15/2020 2 [facility] (MEDICARE SUPPLEMENT) Hillary A [place] [id number] Hillary A [place] 05/17/2020 1 [place] A [place] [id number] Hillary A Naila 05/17/2020 2 [facility] (MEDICARE SUPPLEMENT) Hillary A [place] [id number] Hillary A Naila 05/23/2020 1 [place] Hillary Turner [place] [id number] Hillary Turner Naila 05/23/2020 2 [facility] (MEDICARE SUPPLEMENT) Hillary Turner [place] [id number] Hillary Turner [place] 07/23/2020 1 [place] A [place] [id number] Hillary A [place] 07/23/2020 2 [facility] (MEDICARE SUPPLEMENT) Hillary Turner [place] [id number] Hillary Turner [place] Notes Date Note Type Note Provider Name [...] physical therapy for her balance. She attended [facility] last in 2018. She completed six [...] red flag symptoms. IRENE KELLER MD [address] [facility],[address], [place], [address], [facility] 04/27/2020 10:09:15 05/23/2020 text/html 70-year-old fema le [...] pain no fever chills RAFAL Perrin [address] [facility],[address], [place], [address], [facility] 05/23/2020 10:31:13 07/23/2020 text/html 70-year-old fema le [...] numbness tingling or weakness. RAFAL Perrin [address] [facility],[address], [place], [address], [facility] 07/23/2020 08:54:39 OBGyn Episode No OBEpisode recorded.
--- OUTSIDE RECORDS SUMMARY | 2024-10-24 06:02 | XMS_ITS | Data Portability ---
Author Organization [facility], Main Office Address [address] [facility] [place] [address] Care Team Providers Care Slab Stripper Name Role Phone MARCIO DONG 3RD FLOOR [...] Address Organization Details Recorded Time Recurrent falls 563973664 Active 2022 JUAN MANUEL MORALES NP [address], [address], [place], [address], [facility] 3 11:13:43 Osteoarthr itis 896971199 Active 2022 JUAN MANUEL MORALES NP [address], [address], [place], [address], [facility] 3 11:13:48 Chronic obstructiv e pulmonary disease 56133171 Active 2022 JUAN MANUEL MORALES NP [address], [address], [place], [address], [facility] 3 11:13:52 Gastroesop hageal reflux disease without esophagiti s 495198163 Active 2022 JUAN MANUEL MORALES NP [address], [address], [place], [address], [facility] 3 11:13:58 Congestive heart failure 28483324 Active 2022 JUAN MANUEL MORALES NP [address], [address], [place], [address], [employer] [facility] 3 11:14:03 Atrial fibrillati on 93084680 Active 2022 JUAN MANUEL MORALES NP [address], [address], [place], [address], [facility] 3 11:14:08 Hematoma of right thigh 988098735290 12849 Active 2022 JUAN MANUEL MORALES NP [address], [address], [place], [address], [facility] 3 11:14:21 Essential hypertensi on 74715973 Active 2022 JUAN MANUEL MORALES NP [address], [address], [place], [address], [facility] 3 11:40:46 Hyperlipid emia 71544734 Active 2022 JUAN MANUEL MORALES NP [address], [address], [place], [address], [facility] [employer] [facility] 3 11:41:07 Mixed anxiety and depressive disorder 878934607 Active 2022 JUAN MANUEL MORALES NP [address], [address], [place], [address], [facility] 3 11:41:48 Impaired cognition 533236266 Active 2022 Sandra Morrison MD [address], [address], [place], [address], [facility] 3 01:04:56 Overactive urinary bladder 693743494 Active 2022 Sandra Morrison MD [address] [facility], [address], [place], [address], [facility] 3 01:13:05 Dry eyes 352395910 Active 2022 Sandra Morrison MD [address] [facility] [address], [address], [place], [address], [facility] 3 01:14:09 Hematoma 139682875 Active 2022 left buttock JUAN MANUEL MORALES NP [address] [facility], [address], [place], [address], [facility] 3 13:03:34 Leukocytos is 116332926 Active 2023 JUAN MANUEL MORALES NP [address] [facility], [address], [place], [address], [facility] 4 12:21:55 Restless legs 81248410 Active 2023 Sandra Morrison MD [address], [address], [place], [address], [facility] [facility] 4 18:41:39 Mixed urinary incontinen ce 065919758 Active 2023 Sandra Morrison MD [address], [address], [place], [address], [facility] 4 18:42:46 Bacterial conjunctiv itis 498846254 Active 2023 REGI COLÓN [address] [facility] [address], [address], [place], [address], [facility] 4 17:01:03 Notes:Some problems listed i n Document: #[id number] could not be added to this patient's [...] 128 mm[Hg] 70 mm[Hg] REGI COLÓN [address] [facility], [address], [place], [address], [facility] 4 11:36:37 Date Recorded Body height Provider Name an d Address Organization Details Last Updated DateTime 07/04/2024 167.64 cm REGI COLÓN [address] [facility], [address], [place], [address], [facility] 07/04/2024 12:29:27 Date Recorded Body height Heart rate Respiratory rate Body temperature Oxygen saturation Oxygen saturation in Arterial blood by Pulse oximetry Systolic blood pressure Diastolic blood pressure Provider Name and Address Organization Details Last Updated DateTime 5 167.64 cm 72 /min 18 /min 97.7 [degF] 96 % 96 % 120 mm[Hg] 70 mm[Hg] REGI COLÓN [address] [facility], [address], [place], [address], [facility] 5 09:37:30 Social History Question Answer Notes LastModified by Organizat ion Details LastModified Time Tobacco Smoking Status Former Smoker JUAN MANUEL MORALES NP [address] [facility], [address], [place], [address], [facility] 08/08/2022 11:11:20 Do You Have An Advance Directive? Yes Information not available 08/11/2022 What Is Your Level Of Alcohol Consumption? None Information not available 08/08/2022 What Is Your Code Status? Full Code Information not available 08/11/2022 Where Do You Live? [facility], Previously Lived Alone, No Stairs Information not available 05/15/2023 Legal Guardian? No Informati on not available 08/12/2022 Do You Have A Medical Power Of Crab Fisherman? Yes Information not available 08/12/2022 What Was [...] adjuvanted, quadrivalent, PF 05/22/2022 completed Maryam hernandez, [facility] 07/30/2023 12:41:28 Past Encounters Encounter ID Performer Location Encounter Start Date Encounter Closed Date Diagnosis/Indication Diagnosis SNOMED-CT Code Diagnosis ICD10 Code Diagnosis Note [id number] JUAN MANUEL MORALES NP [facility] [address] [facility] [place] [address] 08/08/2022 09:43:58 08/12/2022 10:33:59 Recurrent falls 215218994 R29.6 PT OT eval and treatfall precaution sfrequent safety checks Hematoma o f right thigh 3353017557 4446359 S70.11XA change dressing per ordersmoni tor for increased swellingav oid further falls Atrial fibrillation 4943 6004 I48.91 amiodarone 200 mg dailyeiliq uis 5 mg bidbisopro lol 2.5 mg daily Chronic ob structive pulmonary disease 35383078 J44.9 albuterol inhaler q4hr prnadvair 100/25 daily Congestive heart failure 96451356 I50.9 lasix 20 mg dailylosar miller 25 mg daily Osteoarthritis 559878182 M19.90 cholecalci ferol 2000 dailyrisen dronate 35 weekly Gastroesop hageal reflux disease without esophagitis 721542626 K21.9 CaCarb 500 bidprotoni x 40 mg daily Essential hypertension 69088346 I10 amlodipine 5 mg dailycloni dine 0.1 mg q12 hr Hyperlipidemia 41557581 E78.5 atorvastat in 40 mg daily Mixed anxi ety and depressive disorder 812606381 F41.8 bupropion er 150 mg dailytrazo done 100 mg hs JUAN MAN[facility]EL MORALES [facility] [address] [place] [address] 08/11/2022 14:11:22 08/13/2022 13:57:19 Hematoma of right thigh 0868490023 1373728 S70.11XA change dressing per ordersmoni tor for increased swellingav oid further falls Congestive heart failure 93934532 I50.9 lasix 20 mg dailylosar miller 25 mg daily [id number] Sandra Morrison MD [address] [address] 08/12/2022 17:25:40 08/18/2022 16:13:47 Hematoma of right thigh 4576981860 1757641 S70.11XD With minimal drainage from drains.Lik bruno will get removed at appt tomorrow.M onitor thigh for healing.Mo nitor CBC. Congestive heart failure 82626184 I50.22 Appears euvolemic. Continue bisoprolol 2.5 mg qd, lasix 20 mg qd and losartan 25 mg qd.Monitor resp. status, fluid status, wts and labs. Recurrent falls 93822794 2 R29.6 Very deconditio demetrius.Needs PT/OT for strengthen ing, balance, gait training, safety and function.C ontinue fall precaution s.Monitor for safety. Atrial fibrillation 4943 6004 I48.0 Rate in good control on meds as above and amiodarone 200 mg qd.Continu e eliquis 5 mg BID for AC.Monitor HR and bleeding risk. Chronic ob structive pulmonary disease 71929683 J43.8 At baseline.C ontinue Advair 100/25 mcg BID and albuterol MDI 2 puffs q 4 hrs prn.Monito r resp. status. Gastroesop hageal reflux disease without esophagitis 073573728 K21.9 No current sxs.Contin ue pantoprazo le 40 mg qd.Monitor sxs. Essential hypertension 61381848 I10 Systolic has been high periodical ly, likely due to pain.No change in meds for now.Contin ue meds as above and amlodipine 5 mg qd and clonidine 0.1 mg BID.Monito r BP and labs. Hyperlipidemia 71588022 E78.49 Continue atorvastat in 40 mg qd.Monitor labs as outpt. Mixed anxi ety and depressive disorder 912546318 F41.8 Mood ok tonight.Co ntinue bupropion ER 150 mg qd and trazodone 100 mg qhsMonitor mood.Psych consult prn. Osteoporosis 18395662 M8 1.0 Continue cholecalci ferol 2000 IU qd, calcium 500 mg BID, and risedronat e 35 mg weeklyMoni tor as outpt. [id number] JUAN MANUEL MORALES NP [facility] [address] [place] [address] 08/14/2022 11:52:29 08/18/2022 16:23:58 Chronic obstructive pulmonary disease 05320447 J44.9 albuterol inhaler q4hr prnadvair 100/25 daily Congestive heart failure 73266185 I50.9 lasix 20 mg dailylosar miller 25 mg daily [id number] TONY ALMARAZ [address] [place] [address] 08/20/2022 13:24:34 08/22/2022 13:09:35 Chronic obstructive pulmonary disease 66106518 J43.8 albuterol inhaler q4hr prnadvair 100/25 daily Mixed anxi ety and depressive disorder 339966459 F41.8 bupropion er 150 mg dailytrazo done 100 mg hsmonitor and chart any changes in mood or behaviorsp [facility] [id number] JUAN MANUEL MORALESTONY [address] [address] 08/27/2022 10:50:59 09/02/2022 10:27:22 Hematoma of right thigh 8554861915 3845889 S70.11XD change dressing per ordersmoni tor for increased swellingav oid further fallsWBAT Chronic ob structive pulmonary disease 52831887 J43.8 albuterol inhaler q4hr prnadvair 100/25 daily Recurrent falls 38238467 2 R29.6 PT OT eval and treatfall precaution sfrequent safety checks [id number] JUAN MANUEL MORALESTONY [address] [address] 09/03/2022 10:52:54 09/05/2022 13:45:58 Chronic obstructive pulmonary disease 45327881 J43.8 albuterol inhaler q4hr prnadvair 100/25 daily Recurrent falls 38474366 2 R29.6 PT OT eval and treatfall precaution sfrequent safety checks [id number] JUAN MANUEL MORALES TONY [address] [address] 09/05/2022 10:51:26 09/09/2022 07:59:39 Recurrent falls 814069082 R29.6 PT OT eval and treatfall precaution sfrequent safety checks Hematoma o f right thigh 1516545919 2926600 S70.11XA change dressing per ordersmoni tor for increased swellingav oid further falls Atrial fibrillation 4943 6004 I48.91 amiodarone 200 mg dailyeiliq uis 5 mg bidbisopro lol 2.5 mg daily Chronic ob structive pulmonary disease 16538633 J44.9 albuterol inhaler q4hr prnadvair 100/25 daily Congestive heart failure 11699465 I50.9 lasix 20 mg dailylosar miller 25 mg daily Osteoarthritis 619397031 M19.90 cholecalci ferol 2000 dailyrisen dronate 35 weekly Gastroesop hageal reflux disease without esophagitis 398776062 K21.9 CaCarb 500 bidprotoni x 40 mg daily Essential hypertension 52523794 I10 amlodipine 5 mg dailycloni dine 0.1 mg q12 hr Hyperlipidemia 49119832 E78.5 atorvastat in 40 mg daily Mixed anxi ety and depressive disorder 060098800 F41.8 bupropion er 150 mg dailytrazo done 100 mg hs [id number] Sandra Morrison MD [address] [address] 10/07/2022 18:29:02 10/10/2022 15:21:01 Abrasion and/or friction burn of back without infection 94612400 S30.810A With open abrasion.W ill use local care and protection with dressings and monitor sxs. Fall W18.39XA Pt. reminded to call for help when she wants to get up.Continu es to need PT/OT for strengthen ing, balance, gait training, safety and function.C ontinue fall precaution s.Monitor for safety. Essential hypertension 02218931 I10 Systolic was very high this AM, not rechecked since fall. Overall good recently.C ontinue bisoprolol 2.5 mg qd, lasix 20 mg qd, losartan 25 mg qd. amlodipine 5 mg qd and clonidine 0.1 mg BID.Monito r BP and labs. [id number] Sandra Morrison MD [facility] [address] [place] [address] 10/09/2022 13:55:48 10/14/2022 11:00:12 Abrasion and/or friction burn of back without infection 32378821 S30.810A Abrasion healing.Co ntinue local care and protection with dressings and monitor sxs. Fall W18.39XA Fall 2 days ago.Contin ues to need PT/OT for strengthen ing, balance, gait training, safety and function.C ontinue fall precaution s.Monitor for safety. Essential hypertension 45281885 I10 Continues with intermitte nt elevated SBP, [...] and labs. Hematoma o f right thigh 8619485104 5505967 S70.11XD Healed.CBC stable. Congestive heart failure 07009683 I50.22 Continues to be euvolemic. Continue bisoprolol 2.5 mg qd, lasix 20 mg qd and losartan 25 mg qd.Monitor resp. status, fluid status, wts and labs. Atrial fibrillation 4943 6004 I48.0 Rate remains in good control on meds as above and amiodarone 200 mg qd.Continu e eliquis 5 mg BID for AC.Monitor HR and bleeding risk. Chronic ob structive pulmonary disease 19408514 J43.8 Continues at baseline.C ontinue Advair 100/25 mcg BID and albuterol MDI 2 puffs q 4 hrs prn.Monito r resp. status. Osteoporosis 25657104 M8 1.0 Continue cholecalci ferol 2000 IU qd, calcium 500 mg BID, and risedronat e 35 mg weeklyMoni tor as outpt. Gastroesop hageal reflux disease without esophagitis 983340035 K21.9 No current sxs.Contin ue pantoprazo le 40 mg qd.Monitor sxs. Hyperlipidemia 42456484 E78.49 Continue atorvastat in 40 mg qd.Monitor labs as outpt. Mixed anxi ety and depressive disorder 726586360 F41.8 Mood ok tonight.Co ntinue bupropion ER 150 mg qd, Buspar 5 mg qd, and trazodone 100 mg qhsMonitor mood.Psych consult prn. Impaired cognition 92887 6002 R41.89 Oriented today, but with frequent episodes of confusion. Continue supportive care, expect decline.HC P invokedMon itor mood and behaviors. Psych consult prn. Overactive urinary bladder 243801250 N32.81 Per pt. has been on Gemtesa in the past, would like to restart.Ge mtesa 75 mg qd.Monitor urinary function. Restless legs 77006262 G 25.81 With increased sxs of RLS.Will start requip 0.25 mg qhs.Monito r sxs. Dry eyes 336142625 H04.1 23 Will start natural tears q 2 hrs prn, may leave at bedside.Mo nitor sxs. [id number] JUAN MANUEL MORALES NP MARCIO DONG [address] [place] [address] [place] [address] 10/13/2022 12:47:26 10/15/2022 12:27:09 Hematoma 607242750 M79.81 sent to ED for further eval as it is expanding [id number] JUAN MANUEL MORALES NP MARCIO DONG [address] [place] [address] [place] [address] 10/17/2022 10:23:03 10/22/2022 16:06:33 Hematoma 281410134 M79.81 oxycodone 2.5 mg q6hr prn for 5 daysmonito r for healibng Recurrent falls 72984852 2 R29.6 PT OT eval and treatfall precaution sfrequent safety checks Hematoma o f right thigh 7801459030 8972806 S70.11XA resolvedav oid further falls Atrial fibrillation 4943 6004 I48.91 amiodarone 200 mg dailyeiliq uis 5 mg bidbisopro lol 2.5 mg daily Chronic ob structive pulmonary disease 99764418 J44.9 albuterol inhaler q4hr prnadvair 100/25 daily Congestive heart failure 87131001 I50.9 lasix 20 mg dailylosar miller 25 mg daily Osteoarthritis 726887304 M19.90 cholecalci ferol 2000 dailyrisen dronate 35 weekly Gastroesop hageal reflux disease without esophagitis 191842654 K21.9 CaCarb 500 bidprotoni x 40 mg daily Essential hypertension 78335481 I10 amlodipine 5 mg dailycloni dine 0.1 mg q12 hr Hyperlipidemia 73990418 E78.5 atorvastat in 40 mg daily Mixed anxi ety and depressive disorder 087540392 F41.8 bupropion er 150 mg dailybuspa r 5 mg dailytrazo done 100 mg hs Overactive urinary bladder 727918344 N32.81 Gemtesa 75 mg qd.Monitor urinary function. [id number] JUAN MANUEL MORALES NP MARCIO DONG [address] [place] [address] [place] [address] 10/20/2022 12:38:53 10/22/2022 16:25:33 Hematoma 454964255 M79.81 oxycodone 2.5 mg q6hr prn for 5 daysmonito r for healing Recurrent falls 61469648 2 R29.6 PT OT eval and treatfall precaution sfrequent safety checks [id number] JUAN MANUEL MORALES NP [address] [address] 10/24/2022 10:45:27 10/28/2022 12:44:55 Hematoma 547637247 M79.81 oxycodone 2.5 mg q6hr prn for 5 daysmonito r for healing Impaired cognition 41004 6002 R41.89 Oriented intermitte ntly, but with frequent episodes of confusion. Continue supportive care, expect decline.HC P invokedMon itor mood and behaviors. Psych consult prn. [id number] JUAN MANUEL MORALES NP [facility] [address] [place] [address] 10/29/2022 13:57:22 10/31/2022 15:54:37 Hematoma 321034295 M79.81 monitor for healing Recurrent falls 32958107 2 R29.6 PT OT eval and treatfall precaution sfrequent safety checks Hematoma o f right thigh 8003290117 3467114 S70.11XA resolvedav oid further falls Atrial fibrillation 4943 6004 I48.91 amiodarone 200 mg dailyeiliq uis 5 mg bidbisopro lol 2.5 mg daily Chronic ob structive pulmonary disease 38016569 J44.9 albuterol inhaler q4hr prnadvair 100/25 daily Congestive heart failure 83633142 I50.9 lasix 20 mg dailylosar miller 25 mg daily Osteoarthritis 274532713 M19.90 cholecalci ferol 2000 dailyrisen dronate 35 weekly Gastroesop hageal reflux disease without esophagitis 473692507 K21.9 CaCarb 500 bidprotoni x 40 mg daily Essential hypertension 03701536 I10 amlodipine 5 mg dailycloni dine 0.1 mg q12 hr Hyperlipidemia 29752129 E78.5 atorvastat in 40 mg daily Mixed anxi ety and depressive disorder 368601831 F41.8 bupropion er 150 mg dailybuspa r 5 mg dailytrazo done 100 mg hs Overactive urinary bladder 859136019 N32.81 Gemtesa 75 mg qd.Monitor urinary function. [id number] MD MARCIO Cline [address] [place] [address] [place] [address] 01/28/2023 07:59:08 01/30/2023 15:30:48 Impaired cognition 058494365 R41.89 will monitor and support as neededI did not feel that I could invoke patient's HCP proxy today as she was quite appropriat e in her answers to my questions with even some insight. Chronic ob structive pulmonary disease 74538241 J41.0 Advair 250-50: one puff s10stcntxa rol HFA: 2 puffs q4h prnwill monitor Atrial fibrillation 4943 6004 I48.0 apixaban 5 mg bidbisopro lol 2.5 mg dailyamiod arone 200 mg dailywill monitor Essential hypertension 51653095 I10 bisoprolol 2.5 mg dailyamlod ipine 5 mg dailyfuros emide 20 mg dailylosar miller 25 mg dailycloni dine 0.1 mg [id number] monitor Mixed anxi ety and depressive disorder 526497232 F41.8 buspirone 5 mg tidtrazodo ne 100 mg at hsbupropri on 100 mg dailyescit alopram 10 mg dailyhydro xyzine 10 mg q8h prn anxietywil l monitor Overactive urinary bladder 930750013 N32.81 vibegron 75 mg dailywill monitor Restless legs 21283550 G 25.81 ropinirole 0.25 mg dailywill monitor Gastroesop hageal reflux disease without esophagitis 930056159 K21.9 pantoprazo le 40 mg dailywill monitor Primary osteoporosis 276 481417 M81.0 risendrona te 25 mg weeklywill monitor Chronic sy stolic heart failure 315082483 I50.22 losartan 25 mg dailyfuros emide 20 mg dailybisop rolol 2.5 mg dailywill monitor [id number] TONY ALMARAZ [address] [place] [address] [place] [address] 03/20/2023 16:32:09 03/27/2023 09:38:51 Overactive urinary bladder 620890547 N32.81 urology consult prnMonitor urinary function. Impaired cognition 72293 6002 R41.89 will monitor and support as needed Chronic ob structive pulmonary disease 25100509 J41.0 Advair 250-50: one puff [id number] rol HFA: 2 puffs q4h prnwill monitor Atrial fibrillation 4943 6004 I48.0 apixaban 5 mg bidbisopro lol 2.5 mg dailyamiod arone 200 mg dailywill monitor Essential hypertension 15520926 I10 bisoprolol 2.5 mg dailyamlod ipine 5 mg dailyfuros emide 20 mg dailylosar miller 25 mg dailycloni dine 0.1 mg [id number] monitor Mixed anxi ety and depressive disorder 291505965 F41.8 buspirone 5 mg tidtrazodo ne 100 mg at hsbupropri on 100 mg dailyescit alopram 10 mg dailyhydro xyzine 10 mg q8h prn anxietywil l monitor Restless legs 70453225 G 25.81 ropinirole 0.25 mg dailywill monitor Gastroesop hageal reflux disease without esophagitis 322965119 K21.9 pantoprazo le 40 mg dailywill monitor Primary osteoporosis 276 523518 M81.0 risendrona te 25 mg weeklywill monitor Chronic sy stolic heart failure 654266818 I50.22 losartan 25 mg dailyfuros emide 20 mg dailybisop rolol 2.5 mg dailywill monitor Recurrent falls 76831951 2 R29.6 PT OT eval and treatfall precaution sfrequent safety checks [id number] Sandra Morrison MD [address] [address] 05/15/2023 17:56:32 05/19/2023 11:07:46 Fall 7653381 R29.6 Hx of fallsConti nue fall precaution s.Monitor for safety. Essential hypertension 81865224 I10 Good control.Co ntinue bisoprolol 2.5 mg qd, lasix 20 mg qd, losartan 25 mg qd. amlodipine 5 mg qd and clonidine 0.1 mg BID.Monito r BP and labs. Hematoma o f right thigh 1531305059 2634620 S70.11XD Healed.CBC stable. Impaired cognition 06910 6002 R41.89 Mild confusion today, but fairly oriented.C ontinue supportive care, expect decline.HC P invokedMon itor mood and behaviors. Psych consult prn. Congestive heart failure 98499508 I50.22 Continues to be euvolemic. Continue bisoprolol 2.5 mg qd, lasix 20 mg qd and losartan 25 mg qd.Monitor resp. status, fluid status, wts and labs. Atrial fibrillation 4943 6004 I48.0 Rate remains in good control on meds as above and amiodarone 200 mg qd.Continu e eliquis 5 mg BID for AC.Monitor HR and bleeding risk. Chronic ob structive pulmonary disease 11824572 J43.8 Continues at baseline.C ontinue Advair 100/25 mcg BID and albuterol MDI 2 puffs q 4 hrs prn.Monito r resp. status. Osteoporosis 34610628 M8 1.0 Continue cholecalci ferol 2000 IU qd, calcium 500 mg BID, and risedronat e 35 mg weeklyMoni tor as outpt. Gastroesop hageal reflux disease without esophagitis 491386757 K21.9 No current sxs.Contin ue pantoprazo le 40 mg qd.Monitor sxs. Hyperlipidemia 11423008 E78.49 Continue atorvastat in 40 mg qd.Monitor labs as outpt. Mixed anxi ety and depressive disorder 577656694 F41.8 Mood ok tonight.Co ntinue bupropion ER 100 mg qd, Buspar 5 mg TID, clonidine 0.1 m BID, and trazodone 100 mg qhsMonitor mood.Psych consult prn. Restless legs 04087754 G 25.81 Continue requip 0.25 mg qhs.Monito r sxs. Mixed urin laura incontinence 871225293 N39.46 Continue estring 2 mg q 3 months and estrace cream 2 gms 3x/wkMonit or urinary function.F /U with uro prn. Visual hallucinations 64 936577 R44.1 Psych consult for visual and auditory hallucinat ions.[place] to pt. [id number] TONY ALMARAZ [address] [place] [address] rd [place] [address] 07/10/2023 12:52:00 07/21/2023 11:22:40 Overactive urinary bladder 976593956 N32.81 urology consult prnMonitor urinary function.d -mannose 500 mg daily uti preventati ve Impaired cognition 55870 6002 R41.89 will monitor and support as needed Chronic ob structive pulmonary disease 26849542 J41.0 Advair 250-50: one puff [id number] rol HFA: 2 puffs q4h prnwill monitor Atrial fibrillation 4943 6004 I48.0 apixaban 5 mg bidbisopro lol 2.5 mg dailyamiod arone 200 mg dailywill monitor Essential hypertension 78657529 I10 bisoprolol 2.5 mg dailyamlod ipine 5 mg dailyfuros emide 20 mg dailylosar miller 25 mg dailycloni dine 0.1 mg k56bfant monitor Mixed anxi ety and depressive disorder 417609445 F41.8 buspirone 5 mg tidtrazodo ne 100 mg at hsbupropri on 100 mg dailyescit alopram 10 mg dailyhydro xyzine 10 mg q8h prn anxietywil l monitor Restless legs 44145509 G 25.81 ropinirole 0.25 mg dailywill monitor Gastroesop hageal reflux disease without esophagitis 123192544 K21.9 pantoprazo le 40 mg dailywill monitor Primary osteoporosis 276 807929 M81.0 risendrona te 25 mg weeklywill monitor Chronic sy stolic heart failure 715873097 I50.22 losartan 25 mg dailyfuros emide 20 mg dailybisop rolol 2.5 mg dailywill monitor Recurrent falls 69047465 2 R29.6 PT OT eval and treatfall precaution sfrequent safety checks [id number] TONY ALMARAZ [address] [facility] [place] [address] 07/15/2023 12:09:17 07/21/2023 14:31:17 Leukocytosis 028592985 D72.829 UA C/Scxr [id number] Martina DONG [address] [facility] [place] [address] 08/28/2023 10:48:09 10/26/2023 15:56:34 Atrial fibrillation 22029218 I48.0 chronic, stable. RCcontinue eliquiscon tinue norvasccon tinue amiodarone monitor HR Chronic ob structive pulmonary disease 94139843 J41.0 chronic stablecont inue inhalersmo nitor for changes in respirator y status Congestive heart failure 60603146 I50.22 chronic, stablecont inue lasix 20mg dailymonit or BMP Essential hypertension 81770426 I10 chronic stablecont inue norvasc and losartanal so on lasix Hyperlipidemia 34516076 E78.49 continue atorvastat inmonitor lipids annually [id number] Jenni Kwong MD [address] [address] 09/09/2023 08:10:55 09/15/2023 10:16:26 Impaired cognition 285464283 R41.89 will monitor and support as needed Mixed anxi ety and depressive disorder 629039440 F41.8 buspirone 5 mg tidtrazodo ne 100 mg at hsbupropri on 100 mg dailyescit alopram 10 mg dailyhydro xyzine 10 mg q8h prn anxietywil l monitor Atrial fibrillation 4943 6004 I48.0 apixaban 5 mg bidbisopro lol 2.5 mg dailyamiod arone 200 mg dailywill monitor Essential hypertension 19264361 I10 bisoprolol 2.5 mg dailyamlod ipine 5 mg dailyfuros emide 20 mg dailylosar miller 25 mg dailycloni dine 0.1 mg [id number] monitor Hyperlipidemia 32123657 E78.49 atorvastat in 40 mg dailywill monitor Chronic ob structive pulmonary disease 73085754 J41.0 Advair 250-50: one puff [id number] rol HFA: 2 puffs q4h prnwill monitor Gastroesop hageal reflux disease without esophagitis 499361761 K21.9 pantoprazo le 40 mg dailywill monitor Restless legs 12974995 G 25.81 ropinirole 0.25 mg dailywill monitor Cobalamin deficiency 190 379085 E53.8 B12 500 mcg dailywill monitor [id number] [facility] [address] [address] 09/21/2023 11:12:35 09/23/2023 09:57:55 Acute dermatitis 91031532 L30.9 left upper facial near left eye [...] provide new make up brushes Impaired cognition 59149 6002 R41.89 will monitor and support as needed [id number] [facility] [address] [place] [address] [place] [address] 5 09/22/2023 15:18:31 09/24/2023 12:07:21 Impaired cognition 555279697 R41.89 will monitor and support as needed Pain of le ft knee region 3551044213 43276 M25.562 see hpiwill scheduled 975 mg tylenol TIDxray left knee 2 viewsconsi christiano PT/OT eval if imaging is negative for fx. [id number] [facility] [address] [place] [address] [place] [address] 5 10/13/2023 18:47:09 10/15/2023 17:16:34 Cough 81567099 R05.9 10/11: started mucinex 600 mg q [...] dayincreas e oral hydrationm onitor resp status [id number] [facility] [address] [place] [address] [place] [address] 5 10/29/2023 11:14:47 11/03/2023 12:16:03 Impaired cognition 190768893 R41.89 Continue supportive care, expect decline.HC P invokedMon itor mood and behaviors. Psych consult prn. Essential hypertension 59448132 I10 BP has been controlled with current medicatios .Continue bisoprolol 2.5 mg qd, lasix 20 mg qd, losartan 25 mg qd. amlodipine 5 mg qd and clonidine 0.1 mg BID.Monito r BP and labs. Congestive heart failure 86744377 I50.22 euvolemic. Continue bisoprolol 2.5 mg qd, lasix 20 mg qd and losartan 25 mg qd.Monitor resp. status, fluid status, wts and labs. Atrial fibrillation 4943 6004 I48.0 HR controlled continue amiodarone 200 mg qd.Continu e eliquis 5 mg BID for AC.Monitor HR and bleeding risk. Chronic ob structive pulmonary disease 12401059 J43.8 Continues at baseline.C ontinue Advair 100/25 mcg BID and albuterol MDI 2 puffs q 4 hrs prn.Monito r resp. status. Osteoporosis 20094866 M8 1.0 Continue cholecalci ferol 2000 IU qd, calcium 500 mg BID, and risedronat e 35 mg weeklyMoni tor as outpt. Gastroesop hageal reflux disease without esophagitis 849950225 K21.9 No current sxs.Contin ue pantoprazo le 40 mg qd.Monitor sxs. Hyperlipidemia 23876023 E78.49 Continue atorvastat in 40 mg qd.Monitor labs as outpt. Mixed anxi ety and depressive disorder 527385059 F41.8 Continue bupropion ER 100 mg qd, Buspar 5 mg TID, clonidine 0.1 m BID, and trazodone 100 mg qhs,lexapr o 10 mg daily and hydroxyzin e 10 mg qdMonitor mood.Psych consult prn. Restless legs 18148080 G 25.81 Continue requip 0.25 mg qhs.Monito r sxs. Mixed urin laura incontinence 415738146 N39.46 Continue estring 2 mg q 3 monthsMoni tor urinary function.F /U with uro prn. Tear of skin 998816177 T 14.8XXA LLE flap tear, approximat edcontinue to monitor healing. [id number] [facility] [address] [place] [address] [place] [address] 5 11/10/2023 12:24:35 11/23/2023 12:50:14 Shoulder pain 54328253 M25.519 right shoulder pain+ discomfort with abduction, suspect OAnursing to give now dose tylenol and continue prnPT/OT eval and treatwill monitor. [id number] [facility] [address] [place] [address] [place] [address] 5 11/25/2023 11:56:55 11/27/2023 12:02:47 Candidiasis of vagina 86869410 B37.31 vaginal redness appears yeastPatie nt has no discomfort start diflucan 150 mg Q72 for 3 dosesPt is incontinen t, nursing encourage to check for incontinen t episode and change Q2.keep skin clean and drymonitor for resolution [id number] Sandra Morrison MD [facility] [address] [place] [address] [place] [address] 01/15/2024 21:46:22 02/02/2024 07:55:44 Impaired cognition 177078254 R41.89 Continues at baseline.C ontinue escitalopr am 10 mg qd, bupropion ER 100 mg qd, Buspar 5 mg TID, clonidine 0.1 m BID, trazodone 100 mg qhs, and hydroxyzin e 10 mg qd.Continu e supportive care, expect decline.HC P invokedMon itor mood and behaviors. Psych follows. Visual hallucinations 64 336249 R44.1 Psych follows, no mention of this in recent notes.Aida tor Essential hypertension 87711618 I10 Continues in good control.Co ntinue bisoprolol 2.5 mg qd, lasix 20 mg qd, losartan 25 mg qd. amlodipine 5 mg qd and clonidine 0.1 mg BID.Monito r BP and labs. Congestive heart failure 67374130 I50.22 Continues to be euvolemic. Continue bisoprolol 2.5 mg qd, lasix 20 mg qd and losartan 25 mg qd.Monitor resp. status, fluid status, wts and labs. Atrial fibrillation 4943 6004 I48.0 Rate in good control on meds as above and amiodarone 200 mg qd.Continu e eliquis 5 mg BID for AC.Monitor HR and bleeding risk. Chronic ob structive pulmonary disease 27584856 J43.8 Continues at baseline.C ontinue Advair 100/25 mcg BID and albuterol MDI 2 puffs q 4 hrs prn.Mucine x 600 mg BID added for cough in 10/2023.Mon itor resp. status. Osteoporosis 87016907 M8 1.0 Continue cholecalci ferol 2000 IU qd, calcium 500 mg BID, and risedronat e 35 mg weeklyMoni tor as outpt. Gastroesop hageal reflux disease without esophagitis 811819464 K21.9 No current sxs.Contin ue pantoprazo le 40 mg qd.Monitor sxs. Hyperlipidemia 65169984 E78.49 Continue atorvastat in 40 mg qd.Monitor labs as outpt. Mixed anxi ety and depressive disorder 038269329 F41.8 As above. Restless legs 05401240 G 25.81 She mentions this tonight.Co ntinue requip 0.25 mg qhs.Consid er increase to 0.5 mg qhs.Monito r sxs. Mixed urin laura incontinence 714575835 N39.46 Continue estring 2 mg q 3 months.Mon itor urinary function.F /U with uro prn. Cough 19910289 R05.9 Back to baseline.M onitor [id number] [facility] [address] [address] 02/24/2024 09:53:07 02/25/2024 10:07:37 Bacterial conjunctivitis 004873743 H10.9 see hpibilater al erythema, dry yellowish discharge noted on lashes and corners or eyesstart ofloxacin 0.3 % 2 gtts QID for 5 daysmonito r for resolution patient encouraged to avoid rubbing eyes, apply cool compress for comfort. [id number] [facility] [address] [address] 03/02/2024 10:16:42 03/04/2024 10:24:18 Bacterial conjunctivitis 657392991 H10.9 ofloxacin eye gtts completeds clera white, no drainage or discharge, denies didcomfort .bilateral erythema, dry yellowish discharge noted on lashes and corners or eyespatien t encouraged to avoid rubbing eyes, apply cool compress for comfort. Mixed anxi ety and depressive disorder 670411616 F41.8 followed by [facility] seen on 02/28 with recommenda tion for GDR she is currently on 4 psychotrop ic medication 03/02: decrease bupropion ER 100 mg qd to 75 mgcheck EKG for QTcContinu e , Buspar 5 mg TID, clonidine 0.1 m BID, and trazodone 100 mg qhs,lexapr o 10 mg daily and hydroxyzin e 10 mg qdMonitor mood.Psych prn [id number] [facility] [address] [address] 03/07/2024 15:12:42 03/09/2024 09:31:11 Recurrent falls 525025451 R29.6 see hpino acute injuries or reports of discomfort .nursing to continue post fall protocol. [id number] [facility] [address] [address] 03/09/2024 10:14:06 03/15/2024 13:07:32 Impaired cognition 866919714 R41.89 Continue supportive care, expect decline.HC P invokedMon itor mood and behaviors. Psych consult prn. Essential hypertension 15202137 I10 Continue bisoprolol 2.5 mg qd, lasix 20 mg qd, losartan 25 mg qd. amlodipine 5 mg qd and clonidine 0.1 mg BID.Monito r BP and labs. Congestive heart failure 56086971 I50.22 euvolemic. she has been stableCont inue bisoprolol 2.5 mg qd, lasix 20 mg qd and losartan 25 mg qd.Monitor resp. status, fluid status, wts and labs. Atrial fibrillation 4943 6004 I48.0 denies any chest pain or other associated sx,continu e amiodarone 200 mg qd.Continu e eliquis 5 mg BID for AC.Monitor HR and bleeding risk. Chronic ob structive pulmonary disease 02010008 J43.8 Continues at baseline.C ontinue Advair 100/25 mcg BID and albuterol MDI 2 puffs q 4 hrs prn.Monito r resp. status. Osteoporosis 00099281 M8 1.0 Continue cholecalci ferol 2000 IU qd, calcium 500 mg BID, and risedronat e 35 mg weeklyMoni tor as outpt. Gastroesop hageal reflux disease without esophagitis 207689250 K21.9 tolerating a regular diet, no reported GI upsetConti nue pantoprazo le 40 mg qd.Monitor sxs. Hyperlipidemia 24602975 E78.49 Continue atorvastat in 40 mg qd.Monitor labs as outpt. Mixed anxi ety and depressive disorder 203460370 F41.8 Continue bupropion ER 100 mg qd, Buspar 5 mg TID, clonidine 0.1 m BID, and trazodone 100 mg qhs,lexapr o 10 mg daily and hydroxyzin e 10 mg qdMonitor mood.Psych consult prn. Restless legs 01976087 G 25.81 Continue requip 0.25 mg qhs.Monito r sxs. Mixed urin laura incontinence 910318172 N39.46 Continue estring 2 mg q 3 monthsMoni tor urinary function.F /U with uro prn. Bacterial conjunctivitis 115594010 H10.9 resolvedof loxacin eye gtts completeds stacy villalobos, no drainage or discharge, denies discomfort . Recurrent falls 00878341 2 R29.6 s/p fall 03/05no acute injuries or reports of discomfort .nursing to continue post fall protocol. [id number] [facility] [address] [address] 04/04/2024 13:13:21 04/05/2024 13:32:19 Viral conjunctivitis 17017774 B30.9 left eyeleft sclera erythema, lower lid swelling( aggravated by rubbing) with clear drainage.n o itchiness or discomfort start azelastine gtt BID for 14 day.monito r for resolution patient encouraged to avoid rubbing eyes, apply cool compress for comfort. [id number] [facility] [address] [address] 04/07/2024 11:04:20 04/08/2024 12:46:40 Viral conjunctivitis 04087426 B30.9 left eye /stablelef t sclera erythema, lower lid swelling( aggravated by rubbing) with clear drainage.n o itchiness or discomfort start azelastine gtt BID for 14 day.- have not received med from pharmacy-m onitor for resolution patient encouraged to avoid rubbing eyes, apply cool compress for comfort. Acute urin laura tract infection 552065675 N39.0 see hpiwill start bactrim 400mg Q12 for 7 dayadd probiotic BIDencoura ged to have increased water consumptio n to flush out toxins Hypokalemia 02542144 E87 .6 subtle at 3.1will replete with kcl 20 meq times 2 daysmonito r for associated sx (weakness, cramping, twitching) patient to notify nursing staff with sx [id number] [facility] e [address] [place] [address] 04/28/2024 11:26:55 04/29/2024 11:42:54 Impaired cognition 968326544 R41.89 stableCont inue supportive care, expect decline.HC P invokedMon itor mood and behaviors. Psych consult prn. Essential hypertension 72001155 I10 Continue bisoprolol 2.5 mg qd, lasix 20 mg qd, losartan 25 mg qd. amlodipine 5 mg qd and clonidine 0.1 mg BID.Monito r BP and labs. Congestive heart failure 32589463 I50.22 euvolemic. she has been stableCont inue bisoprolol 2.5 mg qd, lasix 20 mg qd and losartan 25 mg qd.Monitor resp. status, fluid status, wts and labs. Atrial fibrillation 4943 6004 I48.0 denies any chest pain or other associated sx,continu e amiodarone 200 mg qd.Continu e eliquis 5 mg BID for AC.Monitor HR and bleeding risk. Chronic ob structive pulmonary disease 02295613 J43.8 Continues at baseline.C ontinue Advair 100/25 mcg BID and albuterol MDI 2 puffs q 4 hrs prn.Monito r resp. status. Osteoporosis 14014872 M8 1.0 Continue cholecalci ferol 2000 IU qd, calcium 500 mg BID, and risedronat e 35 mg weeklyMoni tor as outpt. Gastroesop hageal reflux disease without esophagitis 097304469 K21.9 tolerating a regular diet, no reported GI upsetConti nue pantoprazo le 40 mg qd.Monitor sxs. Hyperlipidemia 57839824 E78.49 Continue atorvastat in 40 mg qd.Monitor labs as outpt. Mixed anxi ety and depressive disorder 569056613 F41.8 Continue bupropion ER 100 mg qd, Buspar 5 mg TID, clonidine 0.1 m BID, and trazodone 100 mg qhs,lexapr o 10 mg daily and hydroxyzin e 10 mg qdMonitor mood.Psych consult prn. Restless legs 65401632 G 25.81 Continue requip 0.25 mg qhs.Monito r sxs. Mixed urin laura incontinence 127061395 N39.46 Continue estring 2 mg q 3 monthsMoni tor urinary function.F /U with uro prn. Acute urin laura tract infection 841218429 N39.0 completed abxencoura ged to have increased water consumptio n to flush out toxins Hypokalemia 42643442 E87 .6 subtle at 3.1will replete with kcl 20 meq times 2 daysmonito r for associated sx (weakness, cramping, twitching) patient to notify nursing staff with sx [id number] [facility] [address] [place] [address] 05/09/2024 11:39:53 05/10/2024 13:50:01 Shoulder pain 91079352 M25.519 see HPInon traumatic right shoulder painGive now dose for tramadol 50 mg then tramadol 50 mg Q6 prnschedul e tylenol 1 g TIDxray 3 viewscan apply ice for pain or heat for comfort [id number] [facility] [address] [place] [address] 05/19/2024 09:40:12 05/23/2024 12:46:45 Shoulder pain 95483460 M25.519 non traumatic right shoulder pain-xray negative for any acute findings.c ontinue tramadol 50 mg Q6 prnschedul e tylenol 1 g TID [id number] [facility] [address] [place] [address] 06/16/2024 08:41:53 06/22/2024 12:46:48 Diplopia 93292231 H53.2 intermitte nt12/4 opthamolog y exam showed esophoria at distance , divergence insufficie ncy can be neurologic al neurology consult recommende d, otherwise follow up in 1 year. Impaired cognition 09984 6002 R41.89 Continue supportive care, expect decline.HC P invokedcon tinue to monitor mood and behaviors with recent med changes Essential hypertension 73099407 I10 Continue bisoprolol 2.5 mg qd, lasix 20 mg qd, losartan 25 mg qd. amlodipine 5 mg qd and clonidine 0.1 mg BID.Monito r BP and labs. Congestive heart failure 68289075 I50.22 euvolemic. she has been stableCont inue [...] bleeding risk. Chronic ob structive pulmonary disease 27389867 J43.8 Continue Advair 100/25 mcg BID and albuterol MDI 2 puffs q 4 hrs prn.Monito r resp. status. Osteoporosis 88239347 M8 1.0 Continue cholecalci ferol 2000 IU qd, calcium 500 mg BID, and risedronat e 35 mg weeklyMoni tor as outpt. Gastroesop hageal reflux disease without esophagitis 297088640 K21.9 tolerating a regular diet, no reported GI upsetpanto prazole discontinu ed due to QTc Hyperlipidemia 38162982 E78.49 Continue atorvastat in 40 mg qd.Monitor labs as outpt. Mixed anxi ety and depressive disorder 514211073 F41.8 nursing reports daily anxiety, currently on [...] in place of hydroxyzin e Restless legs 71707176 G 25.81 Continue requip 0.25 mg qhs.Monito r sxs. Mixed urin laura incontinence 609217305 N39.46 Continue estring 2 mg q 3 monthsMoni tor urinary function.F /U with uro prn. [id number] [facility] [address] [place] [address] 06/20/2024 10:53:20 06/21/2024 14:19:17 Diplopia 81703675 H53.2 intermitte nt12/4 opthamolog y exam showed esophoria at distance , divergence insufficie ncy can be neurologic al neurology consult recommende d, otherwise follow up in 1 year.she will discuss with family Mixed anxi ety and depressive disorder 478379811 F41.8 nursing reports daily anxiety, currently on [...] palpitatio n etc.repeat ekg in 1 week [id number] [facility], [address] [place] [address] 07/01/2024 08:22:16 07/04/2024 15:48:50 Respiratory tract congestion and cough 594668098 R05.9 non productive chest xray complete:T he lung johansen are clear without mass, infiltrate , congestion , or effusion. SARS-CoV-2 751280816 U07 .1 07/01 positive teststart Molnupirav ir 800 mg BID for 5 dayscontin ue supportive therapy with oxygen prnisolati on precaution [id number] [facility] [address] [place] [address] 07/04/2024 09:57:50 07/05/2024 09:55:44 Respiratory tract congestion and cough 265753999 R05.9 no cough appreciate d on exam SARS-CoV-2 862836142 U07 .1 07/01 positive testcopnti nue Molnupirav ir 800 mg BID for 5 dayscontin ue supportive therapy with oxygen prnisolati on precaution [id number] [facility] [address] [place] [address] 10/09/2024 10:55:30 10/13/2024 16:07:53 Mixed anxiety and depressive disorder 042181105 F41.8 stablecont inue escitalopr am, BusPIRone and trazodone Impaired cognition 85450 6002 R41.89 Continue supportive care, expect decline. P invokedcon tinue to monitor mood and behaviors with recent med changes Essential hypertension 75939408 I10 stableCont inue bisoprolol 2.5 mg qd, lasix 20 mg qd, losartan 25 mg qd. amlodipine 5 mg qd and clonidine 0.1 mg BID.Monito r BP and labs. Congestive heart failure 88123995 I50.22 euvolemic. stableCont inue bisoprolol 2.5 mg qd, lasix 20 mg qd and losartan 25 mg qd.Monitor resp. status, fluid status, wts and labs. Atrial fibrillation 4943 6004 I48.0 stablerate controlled cont amiodarone to 100 mg qdContinue eliquis 5 mg BID for AC.Monitor HR and bleeding risk. Chronic ob structive pulmonary disease 22206345 J43.8 stableCont inue Advair 100/25 mcg BID and albuterol MDI 2 puffs q 4 hrs prn.Monito r resp. status. Gastroesop hageal reflux disease without esophagitis 396810125 K21.9 stabletole rating a regular diet, no reported GI upsetpanto prazole discontinu ed due to QTc Hyperlipidemia 07212932 E78.49 Continue atorvastat in 40 mg qd.Monitor labs as outpt. [id number] Abhi Erickson MD [address] [place] [address] 10/12/2024 11:19:17 10/14/2024 08:28:33 Impaired cognition 323889891 R41.89 baseline impaired cognitionH CP invokedmon itor for behaviorsp sych eval prn Pruritic rash 34421502 L 28.2 eschar x 2 present left [...] ID Burdick Member ID Guarantor Name 06/20/2024 1 MEDICARE B-[place]: [facility] Hillary A Wilburton [id number] Hillary Wilburton 06/20/2024 2 () Hillary Naila [id number] Hillary Naila 07/01/2024 1 MEDICARE B-[place]: [facility] [employer] [facility] Hillary A Wilburton [id number] Hillary Wilburton 07/01/2024 2 () Hillary Naila [id number] Hillary Wilburton 07/04/2024 1 MEDICARE B-[place]: [facility] Hillary A Naila [id number] Hillary Naila 07/04/2024 2 () Hillary Naila [id number] Hillary Wilburton 10/09/2024 1 MEDICARE B-[place]: [facility] Hillary A Naila [id number] Hillary Wilburton 10/09/2024 2 () Hillary Naila [id number] Hillary Naila 10/12/2024 1 MEDICARE B-CT: [facility] Hillary A Wilburton [id number] Hillary Wilburton 10/12/2024 2 () Hillary Naila [id number] Hillary Wilburton Notes Date Note Type Note Provider Name and Address Organization Details Recorded Time 06/20/2024 text/html Hillary is a [age] yr old LTC resident seen acute rounding visit. Follow up for labs noted within normal limits. GDR in progress for prolong qtc. past medical history that includes Afib, HTN, COPD,GERD, CHF, depression, cognitive changes,left femur and hematoma. [facility] [address] [facility], [address], [place], [address], [facility] 06/20/2024 12:05:23 07/01/2024 text/html Hillary is a [age] yr old LTC resident seen acute rounding visit per nursing request, on 06/30 nursing reported patient had a low grade temp and congested cough. resp panel and chest xray ordered. past medical history that includes Afib, HTN, COPD,GERD, CHF, depression, cognitive changes,left femur and hematoma. [facility] [address] [facility], [address], [place], [address], [facility] 07/01/2024 12:47:57 07/04/2024 text/html Hillary is [...] depression, cognitive changes,left femur and hematoma. [facility] [address] [facility], [address], [place], [address], [facility] 07/04/2024 12:33:28 10/09/2024 text/html Hillary is a [age] yr old LTC resident seen for routine rounding. She has been at her baseline in [facility]. no changes in appetite or elimination, there are no acute nursing concerns. followed by [facility] recently seen 09/05/24, for medication management. medication adjustment over the last 6 months effective. Nursing reports trend of decreased anxiety and agitation. [facility] [address] [facility], [address], [place], [address], [facility] 10/10/2024 09:47:38 10/12/2024 text/html Patient is a 74 yo female resident asked to eval for MD visit with pruritis left hand. Patient with dementia at baseline, brother in room helps with hx. Patient sitting in wheelchair in [facility]. Abhi Erickson MD [address] [facility], [address], [place], [address], [facility] 10/12/2024 11:58:18 OBGyn Episode No OBEpisode recorded.
--- OUTSIDE RECORDS SUMMARY | 2024-10-24 06:02 | XMS_ITS | Data Portability ---
Author Organization [place] [facility] Address [address] [place] [id number] Care Team Providers Care Fashion Consultant Name Role Phone ALONSO ANDINO Primary Care Provider Assessment Encounter Date Assessment Date Assessment LastModified by Organization Details LastModified Time 05/27/2022 05/27/2022 Overview/History : 72 YO F new to and new to provider She is being seen today for cough and SOB This has been ongoing for ~ 2 weeks, the sxs are intermittent, and laying down makes sxs worse, nothing makes her sxs better. Maybe drinking water makes her sxs better she says but she is not 100% sure that helps. The cough is is not productive. She does have a stuffy/runny nose as well. Of note she recently moved up here from [place] to move into an [employer]. She is not a great historian. She gives me a med list with only a few medicines however she has pill packs from [place] that are totally different medicines that her list has on it and she reports no medical conditions besides HTN but states she may have been told sometime that someone may find something with her heart? I was able to get a hold of her PCP who confirmed no hx of irregular heartbeat but she smith shave hx of sinus tachycardia that she is supposed to have metoprolol for however she has no metoprolol here currently. Otherwise the patient denies any chest pain, left arm pain, jaw pain, epigastric pain. weakness, lightheadedness, dizziness, palpitations, resp distress, numbness/tinglin g. No other reported sxs today. Exam: Vitals: HR labile between 100-130 Other VSS and afebrile Constitutional: 72 yo elderly female pleasant patient in no apparent distress. She is upright comfortable and not toxic appearing watching TV on her couch Eyes: PERRL at 4mm, EOM's intact, No swelling, no discharge, sclera / conjunctiva clear ENT: mild amt of clear nasal drainage, no erythema/ exudate noted in oropharynx, moist mucous membranes CV: irreg irreg and tachy,, 2+ radial pulses bilaterally, no edema and no calf tenderness BL, 2+ DP/ PT pulses bilaterally Pulm: RLL consolidation, no other abnormal sounds w/ rest of lungs sounding clear BL. Speaks in full sentences, no increased work of breathing. Mild intermittent junky sounding cough. GI: Soft, non-tender to palpation. No masses, normal bowel sounds. No distension and no guarding : No CVA tenderness bilaterally. No suprapubic tenderness MS: Self ambulatory patient w/ her walker, moves all limbs without deficit, no evidence of trauma Neuro: No focal deficits, A&O x4 Skin: No rash, visible skin is cdi Psych: Calm, cooperative, non-manic. Pleasant. DDx considered, but not limited to: A fib/Anterior Ischemia/Sinus Tachy/SVT - probably a fib given diff P wave moprholgies and iirge heart beat, possible ant ischemia w/ inverted T waves, not afst enough to be SVT and suspect more than simple sinus tach give findings above, Dr James agree and recc emeregent eval at [facility] - no s/s DVT< no hemoptysis, no chest pain CAP Work up/Results: EKG shows irregular rhythm, possible a fib vs sinus tach, possible anterior ischemia w/ inverted T waves in anterior leads, rate at 123 bpm but labile on machine between 100-130 at times Plan/Discussion: Given her exam and c/o today she may have a RLL pneumonia given I hear consolidation there. She needs CXR to r/o. She does not have fever or productive cough and she is not in any visible distress at this time. Most concerning is her heart. Irreg beat w/ tachycardia. Possible a fib given EKG w/ diff P wave morphologies. Dr James agrees. Also possible anterior ischemia w/ inverted T waves anteriorly. She smith snot have any classic ACS sxs but needs cardiac eval. Was able to discuss w/ PCP from [place] Dr Andino office who was only able to give me limited information and confirm she has seen cardiology in the past. Dr Mcarthur in [place] is television operator, I did have their number but I gave it to the ambulance to bring to the hospital she is going to. Explained EKG findings w/ patient and need for cardiac workup and tx. She agrees w/ this plan. She does have HCP who is not invoked, her son Giorgio, I attempted to call him to alert him of what is going on but got VM instead, did not leave one to protect pt privacy. She is A&O x4 and w/ good judgement, HCP not invoked. She did give permission to attempt to give him a call. EMS was called and pt was handed off to Ayad Vaz. Expect called to [facility] w/ very thorough reasons for escalation adn I was thanked for this level of detail. I did pass along pt PCP names and specialist names I had from ID. Pt is on agreement and verbalizes understanding with the above plans at this time. Pt has no other questions or concerns at this time. All questiosn are answered to the best of my ability. Pt thanks us for our visit today. In order to obtain further information and compare any laboratory results/values, I have accessed call PCP office . This information was pertinent in my medical decision making today. [email or web address] Not available 05/27/2022 10:31:11 Plan of Treatment Reminders Order Date Submit [...] Abnormal Flag Note LastModifiedBy Organization Detail LastModifiedTime 06/27/20 22 elect velasquez diogr am No observ ation record ed. Not Available 10:31:15 Result Notes None recorded. Procedures Surgical History Date Name Laterality Status Provider Name and Address Organization Details Recorded Time Medication Review completed SAMSON Hadley, [place], [address], [place] [facility] 05/27/2022 10:20:35 ECG Interpretation - [place], [address], [place] [facility] 05/27/2022 10:23:27 Cataract Surgery completed SAMSON Avila [address], [place], [address], [place] [facility] 05/27/2022 09:22:29 bypass of stomach completed SAMSON Landers [address], [place], [address], [place] [facility] 05/27/2022 09:22:41 Imaging Results Imaging Date Name Status LastModified by Organization Details LastModified Time 06/27/2022 electrocardiogram completed [email or web address] Infor mation not available 11/02/2023 10:31:15 Procedure Notes None recorded. Medical Equipment None Reported. Allergies No known drug allergies Medications Name Sig Start Date Stop Date Status Note LastModified by Organization Details LastModified Time melatonin active Not Available Not Alicia ilable Not Available clonidine 05/27 completed Not Available Not Available Not Available doxazosin active Not Available Not Alicia ilable Not Available iron 05/27 completed Not Available Not Available Not Available ropinirole active Not Available Not Av ailable Not Available hydralazine active Not Available Not A vailable Not Available spironolactone active Not Available No t Available Not Available losartan 05/27 completed Not Available Not Available Not Available tolterodine active Not Available Not A vailable Not Available trazodone 05/27 completed Not Available Not Available Not Available buspirone 05/27 completed Not Available Not Available Not Available pantoprazole active Not Available Not Available Not Available multivitamin active Not Available Not Available Not Available Vitals Date Recorded Heart rate Oxygen saturation Oxygen saturation in Arterial blood by Pulse oximetry Body temperature Respiratory rate Systolic blood pressure Diastolic blood pressure Provider Name and Address Organization Details Last Updated DateTime 2 120 /min 98 % 98 % 98.2 [degF] 18 /min 142 mm[Hg] 80 mm[Hg] Not Available [facility] 2 09:22:36 Social History Question Answer Notes LastModified by Organizat ion Details LastModified Time Tobacco Smoking Status Former Smoker SAMSON Hadley [address], [place], [address], [place] [facility] 05/27/2022 09:22:59 What Is Your Level Of Alcohol Consumption? Occasional Information not available 05/27/2022 When Did You Quit Smoking? 1-5yearssincel leeette Information not available 05/27/2022 Do You Use Any Illicit Or Recreational Drugs? No Information not available 05/27/2022 Sex: Unknown Functional Status None recorded. Mental Status None recorded. Family History Relationship Description Onset Age of this Age Resolved Age Notes LastModified by Organization Details LastModified Time Father Myocardial infarction [email or web address] Not available 05/27 09:23:23 Medical History Condition Response Coronary Artery Disease N COPD N Depression N Hypothyroidism N A-fib N Cancer N Stroke N High Cholesterol N Rheumatoid Arthritis N Kidney Disease N Parkinson's Disease N Diabetes N CHF N Dementia N Asthma N Pulmonary Embolism N Hypertension Y Osteoporosis N Gynecological HistoryNo gynecological history recorded. Obstetrics History GPAL:G 0 P 0 0 0 0 Past Encounters Encounter ID Performer Location Encounter Start Date Encounter Closed Date Diagnosis/Indication Diagnosis SNOMED-CT Code Diagnosis ICD10 Code Diagnosis Note [id number] SAMSON Eli [facility] [address] [place] [address] 05/27/2022 08:28:33 05/28/2022 15:07:31 Tachycardia 7936114 R00.0 Community acquired pneumonia 858646023 J18.9 Irregular heart beat 361 295003 R00.8 Health Concerns Section Related Observation LastModified by Organization Detai ls LastModified Time None Recorded Concern Status LastModified by Organization Details LastModified Time None Recorded Advance Directives Directive None Recorded Payers Encounter Date Sequence Insurance Name Policy Number Policy Burdick Covered Member ID Burdick Member ID Guarantor Name 05/27/2022 1 [place]ICARE [place]: [employer] Hillary Pena Ephrata [id number] Hillary Ephrata 05/27/2022 2 CHRISTOPHER (CHRISTOPHER) Hillary Ephrata [id number] Hillary Ephrata Notes Date Note Type Note Provider Name and Address Organization Details Recorded Time 05/27/2022 text/html 72 YO F new to [facility] and new to providerShe is being seen today for cough and SOBThis has been ongoing for ~ 2 weeks, the sxs are intermittent, and laying down makes sxs worse, nothing makes her sxs better. Maybe drinking water makes her sxs better she says but she is not 100% sure that helps. The cough is is not productive. She does have a stuffy/runny nose as well. Of note she recently moved up here from [place] to move into an [employer]. She is not a great historian. She gives me a med list with only a few medicines however she has pill packs from [place] that are totally different medicines that her list has on it and she reports no medical conditions besides HTN but states she may have been told sometime that someone may find something with her heart? I was able to get a hold of her PCP who confirmed no hx of irregular heartbeat but she smith shave hx of sinus tachycardia that she is supposed to have metoprolol for however she has no metoprolol here currently. Otherwise the patient denies any chest pain, left arm pain, jaw pain, epigastric pain. weakness, lightheadedness, dizziness, palpitations, resp distress, numbness/tingling . No other reported sxs today. SAMSON Hadley [address], [place], [address], [place] [facility] 05/27/2022 10:31:24 OBGyn Episode No OBEpisode recorded.
--- OUTSIDE RECORDS SUMMARY | 2024-10-24 06:02 | XMS_ITS | Data Portability ---
Author Organization [facility], [facility] 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 -S/p gastric bypass surgery with Maisha-en-Y -History of upper GI bleed due to large marginal ulcer at gastrojejunostomy anastomotic site -Stage IIIa chronic kidney disease I had discussion with Ms. Yoo today about her recent hospitalization and the evaluation for her anemia. She is adamant that she was not hospitalized in December with not seen at that time. She does confirm that she has had history of iron deficiency and has had gastric bypass surgery. She currently denies having any symptoms but does have findings consistent with emerging iron deficiency. We discussed having her follow-up on her anemia. Consideration could be given to parenteral iron therapy well as she is unlikely to have any significant abs iron absorption and will likely have intolerance to oral therapy. As she otherwise seems to be doing okay today we will plan on return visit in 3 months with blood work including blood counts and a ferritin level. She agrees to this plan. 1. Labs today CBC w diff, Ferritin, CMP, CRP 2. RTC in 3 months with CBC w diff, ferritin. This report has been created through the use of voice recognition/text compilation software. Typographical and content errors may occur with this process. While efforts are made to detect and correct such errors, in some cases errors will persist. For this reason, wording in this document should be considered in the proper context and not strictly verbatim. [email or web address] Not available 04/02/2022 10:13:53 Plan of Treatment Reminders Order Date Submit Date Provider Last Modified By Organization Details Last Modified Time Details Appointments None recorded. Lab unlisted lab - ferritin 2021 [facility] ([facility]), [address], [place], [address], 03:36:40 vitamin B12, serum 2021 [facility] ([facility]), [address], [place], [address], 03:36:40 folate, serum 2021 [facility] ([facility]), [address], [place], [address], 03:36:41 CBC w/ diff 2021 [facility] ([facility]), [address], [place], [address], 12:36:20 unlisted lab - ferritin 2021 [facility] ([facility]), [address], [place], [address], 14:56:47 CMP, serum or plasma 2021 [facility] ([facility]), [address], [place], [address], 15:46:55 C reactive protein, QN, serum or plasma 2021 022 [facility] ([facility]), [address] , [place], [address], 15:46:59 CBC w/ diff 2021 022 [facility] ([facility]), [address] , [place], [address], 03:28:01 culture, urethral 2020 021 [email or web address] 1 [facility] ([facility]), [address] , [place], [address], 12:25:36 Referral None recorded. Procedures None recorded. Surgeries None recorded. Imaging None recorded. Medication Orders Macrobid 100 mg capsule 2020 021 [email or web address] 4 [facility] [address] [place], [address], 08:43:56 Patient TargetsNo targets recorded. Patient InstructionsNo instructions recorded. Reason for Referral None Reported. Results Created Date Observation Date Name Description Value Unit Range Abnormal Flag Note LastModifiedBy Organization Detail LastModifiedTime 05/14/2005/14/2021 CULTU RE, URINE culture, urine Sourc e: Urine Colle cted: 05/14 12:21 Site: Recei mario : 05/16 03:52 Cultu re, Urine FINAL 05/18 09:17 [facility] 1-10, 000 CFU/m L Mixed Ureth ral Katie Not Available [facility] [address], [place], [address], 05/18/2021 09:17:12 03/31/20 22 03/31/2022 CBC WITH DIFF WBC =7.68 thou/ cumm 3.90-1 1.20 Not Available [facility] ([facility]) [address] , [place], [address], 03/31/2022 12:36:20 09/19/20 22 03/31/2022 CBC WITH DIFF RBC =4.41 mill/ cumm 3.40-5 .40 Not Available [facility] ([facility]) [address], [place], [address], 03/31/2022 12:36:20 03/31/20 22 03/31/2022 CBC WITH DIFF hemoglobin =10.8 g/dL 10.8-1 5.5 Not Available [facility] ([facility]) [address], [place], [address], 03/31/2022 12:36:20 03/31/20 22 03/31/2022 CBC WITH DIFF hematocrit =34.9 % 33.0-4 5.0 Not Available [facility] ([facility]) [address] [place], [address], 03/31/2022 12:36:20 03/31/20 22 03/31/2022 CBC WITH DIFF MCV =79.1 fL 82.0-1 00.0 low Not Available [facility] ([facility]) [address], [place], [address], 03/31/2022 12:36:20 03/31/20 22 03/31/2022 CBC WITH DIFF MCH =24.5 pg 26.0-3 4.0 low Not Available [facility] ([facility]) [address] [place], [address], 03/31/2022 12:36:20 03/31/20 22 03/31/2022 CBC WITH DIFF MCHC =30.9 g/dL 32.0-3 6.0 low Not Available [facility] ([facility]) [address] [place], [address], 03/31/2022 12:36:20 03/31/20 22 03/31/2022 CBC WITH DIFF rdwsd =52.8 fL 35.1-4 6.8 high Not Available [facility] ([facility]) [address] , [place], [address], 03/31/2022 12:36:20 03/31/20 22 03/31/2022 CBC WITH DIFF MPV =10.9 fL 9.7-12 .8 Not Available [facility] ([facility]) [address] , [place], [address], 03/31/2022 12:36:20 03/31/20 22 03/31/2022 CBC WITH DIFF platelet count =377 thou/ cumm 140-44 0 Not Available [facility] ([facility]) [address] , [place], [address], 03/31/2022 12:36:20 03/31/20 22 03/31/2022 CBC WITH DIFF neutrophils auto =78.6 % 40.0-7 7.0 high Not Available [facility] ([facility]) [address], [place], [address], 03/31/2022 12:36:20 03/31/20 22 03/31/2022 CBC WITH DIFF immat granulocyte auto =0.3 % 0.0-0. 5 Not Available [facility] ([facility]) [address], [place], [address], 03/31/2022 12:36:20 03/31/20 22 03/31/2022 CBC WITH DIFF lymphocytes auto =14.1 % 14.0-4 7.0 Not Available [facility] ([facility]) [address], [place], [address], 03/31/2022 12:36:20 03/31/20 22 03/31/2022 CBC WITH DIFF monocytes auto =5.2 % 0.0-13 .0 Not Available [facility] ([facility]) [address] [place], [address], 03/31/2022 12:36:20 03/31/20 22 03/31/2022 CBC WITH DIFF eosinophils auto =1.0 % 0.0-7. 0 Not Available [facility] ([facility]) [address], [place], [address], 03/31/2022 12:36:20 03/31/20 22 03/31/2022 CBC WITH DIFF basophils auto =0.8 % 0.0-2. 0 Not Available [facility] ([facility]) [address], [place], [address], 03/31/2022 12:36:20 03/31/20 22 03/31/2022 CBC WITH DIFF NRBC auto =0.0 /100_ WBC 0.0-0. 2 Not Available [facility] ([facility]) [address], [place], [address], 03/31/2022 12:36:20 03/31/20 22 03/31/2022 CBC WITH DIFF abs NRBC auto <0.01 thou/ cumm 0.00-0 .01 Not Available [facility] ([facility]) [address], [place], [address], 03/31/2022 12:36:20 03/31/20 22 03/31/2022 CBC WITH DIFF abs neutrophils auto =6.04 thou/ cumm 2.00-6 .80 Not Available [facility] ([facility]) [address], [place], [address], 03/31/2022 12:36:20 03/31/20 22 03/31/2022 CBC WITH DIFF abs immat gran auto =0.02 thou/ cumm 0.00-0 .04 Not Available [facility] ([facility]) [address] [place], [address], 03/31/2022 12:36:20 03/31/20 22 03/31/2022 CBC WITH DIFF abs lymphocytes auto =1.08 thou/ cumm 0.90-3 .00 Not Available [facility] ([facility]) [address] , [place], [address], 03/31/2022 12:36:20 03/31/20 22 03/31/2022 CBC WITH DIFF abs monocytes auto =0.40 thou/ cumm 0.20-0 .80 Not Available [facility] ([facility]) [address] [place], [address], 03/31/2022 12:36:20 03/31/20 22 03/31/2022 CBC WITH DIFF abs eosinophils auto =0.08 thou/ cumm 0.00-0 .40 Not Available [facility] ([facility]) [address] [place], [address], 03/31/2022 12:36:20 03/31/20 22 03/31/2022 CBC WITH DIFF abs basophils auto =0.06 thou/ cumm 0.00-0 .10 Not Available [facility] ([facility]) [address] , [place], [address], 03/31/2022 12:36:20 03/31/20 22 03/31/2022 LITO TIN ferritin =22 NG/mL 13-150 Iron Defic ient <10 ng/ml Sampl binta plascencia d not be taken from patie nts recei ving thera py with high bioti n doses (i.e. >5 mg/da y) until at least 8 hours follo wing the last bioti n admin istra tion. For diagn ostic purpo ses, the resul ts temo d alway s be asses sed in conju nctio n with the patie nt's medic al histo ry, clini brock exami natio n and other findi ngs. Not Available [facility] ([facility]) [address] [place], [address], 03/31/2022 14:56:46 03/31/20 22 03/31/2022 COMPR EHENS KIN METAB OLIC PANEL glucose =124 mg/dL 74-100 high Not Available [facility] ([facility]) [address] [place], [address], 03/31/2022 15:46:54 03/31/20 22 03/31/2022 COMPR EHENS KIN METAB OLIC PANEL sodium =139 mmol/ L 136-14 5 Not Available [facility] ([facility]) [address], [place], [address], 03/31/2022 15:46:54 03/31/20 22 03/31/2022 COMPR EHENS KIN METAB OLIC PANEL potassium =4.4 mmol/ L 3.5-5. 2 Not Available [facility] ([facility]) [address], [place], [address], 03/31/2022 15:46:54 03/31/20 22 03/31/2022 COMPR EHENS KIN METAB OLIC PANEL chloride =102 mmol/ L 98-107 Not Available [facility] ([facility]) [address], [place], [address], 03/31/2022 15:46:54 03/31/20 22 03/31/2022 COMPR EHENS KIN METAB OLIC PANEL CO2 =23 mmol/ L 22-29 Not Available [facility] ([facility]) [address], [place], [address], 03/31/2022 15:46:54 03/31/20 22 03/31/2022 COMPR EHENS KIN METAB OLIC PANEL anion gap =14.0 7.0-17 .0 Not Available [facility] ([facility]) [address], [place], [address], 03/31/2022 15:46:54 03/31/20 22 03/31/2022 COMPR EHENS KIN METAB OLIC PANEL calcium =9.4 mg/dL 8.6-10 .5 Not Available [facility] ([facility]) [address] [place], [address], 03/31/2022 15:46:54 03/31/20 22 03/31/2022 COMPR EHENS KIN METAB OLIC PANEL BUN =13 mg/dL 8-23 Not Available [facility] ([facility]) [address] , [place], [address], 03/31/2022 15:46:54 03/31/20 22 03/31/2022 COMPR EHENS KIN METAB OLIC PANEL creatinine =0.93 mg/dL 0.50-0 .90 high Not Available [facility] ([facility]) [address] [place], [address], 03/31/2022 15:46:54 03/31/20 22 03/31/2022 COMPR EHENS KIN METAB OLIC PANEL eGFR >60.0 Not Available [facility] ([facility]) [address] [place], [address], 03/31/2022 15:46:54 03/31/20 22 03/31/2022 COMPR EHENS KIN METAB OLIC PANEL eGFR nonafric americ =59.0 eGFR Refer ence Range >60 ml/mi n/1.7 3m2 Estim ated GFR IDMS- trace able MDRD Study Equat ion used. The equat ion has not been valid ated in child eddie (age <18 years ),pre gnant women , the elder ly (age >8 5 years ), or in some racia l or ethni c subgr oups, such as [facility] nics. Extre me body size, muscl e mass, or nutri brian l statu s may alter the eGFR. Refer to K/DOQ I guide lines for resul ts <60 (Kidn ey Disea se Outco mes Quali ty Initi ative ) Not Available [facility] ([facility]) [address] [place], [address], 03/31/2022 15:46:54 03/31/20 22 03/31/2022 COMPR EHENS KIN METAB OLIC PANEL BUN-creatini ne ratio =14 10-20 Not Available [facility] ([facility]) [address] [place], [address], 03/31/2022 15:46:54 03/31/20 22 03/31/2022 COMPR EHENS KIN METAB OLIC PANEL protein total =7.1 gm/dL 6.4-8. 3 Not Available [facility] ([facility]) [address], [place], [address], 03/31/2022 15:46:54 03/31/20 22 03/31/2022 COMPR EHENS KIN METAB OLIC PANEL albumin =3.6 gm/dL 3.5-5. 2 Renal Patie nts 3.1-4 .6 gm/dL Not Available [facility] ([facility]) [address], [place], [address], 03/31/2022 15:46:54 03/31/20 22 03/31/2022 COMPR EHENS KIN METAB OLIC PANEL globulin =3.5 gm/dL 1.4-4. 7 Not Available [facility] ([facility]) [address], [place], [address], 03/31/2022 15:46:54 03/31/20 22 03/31/2022 COMPR EHENS KIN METAB OLIC PANEL albumin/glob ulin ratio =1.0 1.2-3. 6 low Not Available [facility] ([facility]) [address], [place], [address], 03/31/2022 15:46:54 03/31/20 22 03/31/2022 COMPR EHENS KIN METAB OLIC PANEL alkaline phosphatase =193 U/L 35-104 high Not Available [facility] ([facility]) [address], [place], [address], 03/31/2022 15:46:54 03/31/20 22 03/31/2022 COMPR EHENS KIN METAB OLIC PANEL AST =23 U/L 0-32 Not Available [facility] ([facility]) [address], [place], [address], 03/31/2022 15:46:54 03/31/20 22 03/31/2022 COMPR EHENS KIN METAB OLIC PANEL ALT =17 U/L 0-33 Not Available [facility] ([facility]) [address] , [place], [address], 03/31/2022 15:46:54 03/31/20 22 03/31/2022 COMPR EHENS KIN METAB OLIC PANEL bilirubin total =0.39 mg/dL 0.00-1 .20 Not Available [facility] ([facility]) [address] , [place], [address], 03/31/2022 15:46:54 03/31/20 22 03/31/2022 C-CECY CTIVE PROTE IN C-reactive protein =0.30 mg/dL <0.5 Not Available [facility] ([facility]) [address] , [place], [address], 03/31/2022 15:46:58 12/20/19 22 12/19/2021 cardi ac telem etry No observ ation record ed. tganiki Mcarthur MD [address], [place], [address], 12/19/2021 12:51:23 12/20/19 22 12/19/2021 cardi ac telem etry No observ ation record ed. tganiki Mcarthur MD [address] [employer] [address] [employer] [address], [place], [address], 12/19/2021 12:59:04 12/21/19 22 12/20/2021 cardi ac telem etry No observ ation record ed. connor Mcarthur MD [address], [place], [address], 12/20/2021 10:57:55 02/27/20 22 01/16/2022 cardi ac telem etry MOBILE CARDIA C OP TELEME TRY Test Date: 01-16 Pat Name: LYNN REICH RN Depart ment: Sasha Lowe t ID: [id number] Room: [place] [address] Gender : Female Techni nikita: : 1949-07 Reques dar By: GLORIA SOSA Order Number : [id number] Mandeep garcia MD: BROOKE Valentine MD Local 5899 Approp riate Indica tion: Interp retive Statem ents Abnorm al event monito r Signif icant for atrial fibril lation 37% burden heart rate range 69-208 Paroxy smal SVT fastes t heart rate 202 bpm 21 beats of ventri cular tachyc ardia noted, 9 episod es of VT occurr ed fastes t 223 bpm PAC burden 3% PVC burden 2% Electr onical ly Signed On 11:22: 15 EDT by BROOKE Valentine MD [email or web address]: [email or web address]/ [id number] nvct/H [id number] .pdf [address] [facility] [address], [place], [address], 02/26/2022 15:26:55 02/27/20 22 12/18/2021 cardi ac telem etry MOBILE CARDIA C OP TELEME TRY Test Date: 01-16 Pat Name: LYNN REICH RN Depart ment: Sasha Lowe t ID: [id number] Room: [place] [address] Gender : Female Techni nikita: : 1949-07 Reques dar By: GLORIA SOSA Order Number : [id number] Mandeep garcia MD: BROOKE Valentine MD Local 5899 Approp riate Indica tion: Interp retive Statem ents Abnorm al event monito r Signif icant for atrial fibril lation 37% burden heart rate range 69-208 Paroxy smal SVT fastes t heart rate 202 bpm 21 beats of ventri cular tachyc ardia noted, 9 episod es of [place] occurr ed fastes t 223 bpm PAC burden 3% PVC burden 2% Electr onical ly Signed On 11:22: 15 EDT by BROOKE Valentine MD [email or web address]: [email or web address]/ [id number] nmct/H [id number] .pdf [email or web address] [facility] [address] , [place], [address], 02/26/2022 15:26:54 02/27/20 22 01/16/2022 mobil e cardi ac op telem etry intrp No observ ation record ed. INTERFACE [facility] [address], [place], [address], 02/26/2022 11:22:57 Result Notes None recorded. 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 Not Available [facility] 9 06:54:48 Sensorine ural hearing loss 42984166 Active 2015 SENSORINEU RAL HEARING LOSS; Original code:H90.5 Entered By: Archie Miller [facility]/ [place]; Signed By: Lev Thacker M.D. Not Available [facility] 9 06:54:48 Thoracic back pain 522417083 Active Not Available [facility] 2 07:15:58 Low back pain 870655292 Active 2018 Not Available [facility] 2 07:15:58 Fracture of humerus 65962922 Active 2013 Spiral moderately displaced left humerus fracture. Not Available [facility] 2 07:15:58 Anemia 112338112 Active 2021 Clau hernandez, [facility] 2 11:53:37 Iron deficienc y 34825264 Active 2021 Karsten Tobias MD [address] , [place], [address] , [facility] 2 10:14:11 History of bariatric surgical procedure 761766288 Active 2021 Karsten Tobias MD [address] , [place], [address] , [facility] 2 10:14:39 Iron deficienc y anemia 96847408 Active 2021 Clau Eduardo hernandez, [facility] 2 14:19:20 Problem Notes None recorded. Procedures Surgical History Date Name Laterality Status Provider Name and Address Organization Details Recorded Time 10/03/19 22 Procedure completed [facility] 10/02/2021 08:36:17 04/19/20 21 In and Out Catheterization completed Kevin Vergara DO [address] , [place], [address], [facility] 04/22/2021 17:13:23 08/13/19 21 Date of Last Mammogram completed [facility] 04/19/2021 14:17:27 07/13/19 19 Date of Last Pap Smear completed [facility] 04/19/2021 14:17:21 07/13/19 16 Date of Last Colonoscopy completed [facility] 04/19/2021 14:17:00 Imaging Results Imaging Date Name Status LastModified by Organiz ation Details LastModified Time 12/19/2021 cardiac telemetry completed connor Mcarthur MD [address], [place], [address], 12/19/2021 12:51:23 12/19/2021 cardiac telemetry completed connor Mcarthur MD [address], [place], [address], 12/19/2021 12:59:04 12/20/2021 cardiac telemetry completed connor Mcarthur MD [address], [place], [address], 12/20/2021 10:57:55 01/16/2022 cardiac telemetry completed [facility] [address] , [place], [address], 02/26/2022 15:26:55 12/18/2021 cardiac telemetry completed [address] [facility] [address] , [place], [address], 02/26/2022 15:26:54 01/16/2022 mobile cardiac op telemetry intrp completed INTERFACE [facility] [address], [place], [address], 02/26/2022 11:22:57 Procedure Notes None recorded. Medical Equipment None Reported. Allergies No known drug allergies Medications Name Sig Start Date Stop Date Status Note LastModified by Organization Details LastModified Time cyclobenz aprine 10 mg tablet TAKE 1 TABLET BY MOUTH TWICE DAILY NEEDED active Not Available Not Available No t Available clonidine HCl 0.1 mg tablet 1 by mouth twice daily 2015 active Enter By: Manish Edwards LPN; Signed By: Lev Gonzalez M.D.; Comments : Per patient Not Available Not Available Not Available carvedilo l 12.5 mg tablet TAKE 1 TABLET BY MOUTH TWICE DAILY active Not Available Not Available No t Available clonidine 0.1 mg/24 hr weekly transderm al patch Apply 1 patch every week by transder mal route. 2018 active Not Available Not Available Not Avai lable tolterodi ne ER 4 mg capsule,e xtended release 24 hr TAKE 1 CAPSULE BY MOUTH ONCE DAILY active Not Available Not Available No t Available hydrocodo ne 5 mg-acetam inophen 325 mg tablet TAKE 1 TABLET BY MOUTH THREE TIMES DAILY NEEDED FOR PAIN 04/19 completed Not Available Not Available Not Available hydroquin one 4 % topical cream APPLY TO THE FACE DAILY FOR 3 MONTHS THEN TAKE A MONTH BREAK active Not Available Not Available No t Available naproxen 250 mg tablet TAKE 1 TABLET BY MOUTH TWICE DAILY WITH A MEAL 04/19 completed Not Available Not Available Not Available pantopraz ole 40 mg intraveno us solution Inject by intraven ous route. 2018 active Not Available Not Available Not Avai lable hydralazi ne 25 mg tablet GIVE 2 TABLETS (50MG) BY MOUTH THREE TIMES A DAY FOR HYPERTEN SASHA HOLD FOR SYSTOLIC B/P LESS THAN 110* active Not Available Not Available No t Available melatonin 3 mg tablet GIVE 1 TABLET BY MOUTH AT BEDTIME FOR INSOMNIA active Not Available Not Available No t Available ciproflox acin 250 mg tablet TAKE 1 TABLET BY MOUTH TWICE DAILY active Not Available Not Available No t Available ciproflox acin 500 mg tablet TAKE 1 TABLET BY MOUTH EVERY 12 HOURS active Not Available Not Available No t Available Depo-Medr ol 80 mg/mL suspensio n for injection Take 1 mL by injectio n route. 01/11 completed Not Available Not Available Not Available pantopraz ole 20 mg tablet,de layed release GIVE 1 TABLET BY MOUTH ONCE DAILY FOR GASTROES OPHAGEAL REFLUX DISEASE active Not Available Not Available No t Available meloxicam 7.5 mg tablet TAKE 1 TABLET BY MOUTH ONCE DAILY 04/19 completed Not Available Not Available Not Available losartan 100 mg-hydroc hlorothia zide 25 mg tablet Take 1 tablet every day by oral route. 01/31 completed Not Available Not Available Not Available trazodone 100 mg tablet TAKE 1 TABLET BY MOUTH EVERY DAY AT BEDTIME active Not Available Not Available No t Available ropinirol e 0.25 mg tablet GIVE 1 TABLET BY MOUTH AT BEDTIME FOR RESTLESS LEG SYNDROME active Not Available Not Available No t Available pantopraz ole 40 mg tablet,de layed release TAKE 1 TABLET BY MOUTH ONCE DAILY active Not Available Not Available No t Available erythromy rudy 5 mg/gram (0.5 %) eye ointment active Not Available Not Available Not Available ropinirol e 0.5 mg tablet TAKE 2 TABLETS BY MOUTH AT BEDTIME active Not Available Not Available No t Available prednison e 50 mg tablet TAKE 1 TABLET BY MOUTH ONCE DAILY FOR 5 DAYS 04/19 completed Not Available Not Available Not Available fluoromet holone 0.1 % eye drops,joceline pension INSTILL 1 DROP THREE TIMES DAILY INTO EACH AFFECTED EYE FOR ONE WEEK THEN DISCONTI NUE active Not Available Not Available No t Available oxycodone 5 mg capsule Take 1 capsule every 6 hours by oral route. 09/22 completed Not Available Not Available Not Available doxazosin 4 mg tablet GIVE 1 TABLET BY MOUTH ONCE DAILY FOR HYPERTEN SASHA HOLD IF SYSTOLIC B/P LESS THAN 110* active Not Available Not Available No t Available hydrochlo rothiazid e 25 mg tablet TAKE 1 TABLET BY MOUTH ONCE DAILY active Not Available Not Available No t Available lidocaine HCl 20 mg/mL (2 %) injection solution Take 1 mL by injectio n route. 01/11 completed Not Available Not Available Not Available ketorolac 60 mg/2 mL intramusc ular solution Inject 2 mL by intramus cular route. 01/11 completed 15mg per unit. For example: 60mg = 4 units Not Available Not Available Not Available losartan 100 mg tablet GIVE 1 TABLET BY MOUTH ONCE DAILY FOR HYPERTEN SASHA HOLD IF SYSTOLIC B/P LESS THAN 110* active Not Available Not Available No t Available doxazosin 2 mg tablet TAKE 2 TABLETS BY MOUTH ONCE DAILY active Not Available Not Available No t Available neomycin 3.5 mg/g-poly myxin B 10,000 unit/g-de xameth 0.1 % eye oint APPLY 1 OINTMENT 4 TIMES DAILY INTO EACH EYE 05/23 completed Not Available Not Available Not Available One Daily Multivita min tablet GIVE 1 TABLET BY MOUTH EVERY MORNING FOR SUPPLEME NT active Not Available Not Available No t Available bupropion HCl XL 300 mg 24 hr tablet, extended release Take 1 tablet every day by oral route. 09/22 completed Not Available Not Available Not Available Spiriva with [employer] r 18 mcg and inhalatio n capsules INHALE CONTENTS OF 1 CAPSULE ONCE A DAY BY TAKING 2 SEPARATE INHALATI ONS VIA HANDIHAL ER DEVICE FOR CHRONIC OBSTRUCT KIN PULMONAR Y DISEASE active Not Available Not Available No t Available nitrofura ntoin monohydra te/macroc rystals 100 mg capsule Take 1 capsule twice a day by oral route for 7 days. 06/11 completed Not Available Not Available Not Available aspirin 2018 active Not Available Not Available Not Avai lable Tylenol 2018 active Not Available Not Available Not Avai lable trazodone 09/22 completed Not Available Not Available Not Available Vitamin 2018 active Not Available Not Available Not Avai lable DOK 100 mg tablet GIVE 1 TABLET BY MOUTH EVERY 12 HOURS NEEDED FOR CONSTIPA TION active Not Available Not Available No t Available clonidine (PF) 1,000 mcg/10 mL (100 mcg/mL) epidural solution Take by epidural route. 09/22 completed Not Available Not Available Not Available Vitals Date Recorded Body height Body mass index (BMI) Body weight Heart rate Systolic blood pressure Diastolic blood pressure Provider Name and Address Organization Details Last Updated DateTime 1 167.64 cm 23.9 kg/m2 78527.6 7 g 86 /min 180 mm[Hg] 98 mm[Hg] [facility] 1 12:18:54 Date Recorded Body height Heart rate Body mass index (BMI) Body weight Systolic blood pressure Diastolic blood pressure Provider Name and Address Organization Details Last Updated DateTime 1 167.64 cm 80 /min 23.9 kg/m2 43071.6 7 g 140 mm[Hg] 88 mm[Hg] [facility] 1 08:42:11 Date Recorded Body height Heart rate Body mass index (BMI) Body weight Systolic blood pressure Diastolic blood pressure Provider Name and Address Organization Details Last Updated DateTime 2 167.64 cm 86 /min 23.9 kg/m2 42018.6 7 g 147 mm[Hg] 88 mm[Hg] Yanely Elena [facility] 2 08:33:22 Date Recorded Body height Body mass index (BMI) Body weight Heart rate Respiratory rate Oxygen saturation Oxygen saturation in Arterial blood by Pulse oximetry Systolic blood pressure Diastolic blood pressure Provider Name and Address Organization Details Last Updated DateTime 2 167.64 cm 23.6 kg/m2 09801.4 9 g 103 /min 20 /min 96 % 96 % 164 mm[Hg] 79 mm[Hg] Bess Anaya [facility] 2 11:37:35 Social History Question Answer Notes LastModified by Organizat ion Details LastModified Time Tobacco Smoking Status Current Every Day Smoker Yanely Elena [facility] 04/19/2021 14:18:41 What Is Your Level Of Alcohol Consumption? Moderate Information not available 04/19/2021 What Is Your Level Of Caffeine Consumption? Moderate Information not available 04/19/2021 How Much Tobacco Do You Smoke? 0.5 PPD Information not available 04/19/2021 Sex: Unknown Functional Status None recorded. Mental Status None recorded. Family History Relationship Description Onset Age of this Age Resolved Age Notes LastModified by Organization Details LastModified Time Father No current problems or disability [email or web address] Not available 04/19 14:17:42 Mother No current problems or disability [email or web address] Not available 04/19 14:17:42 Medical History No medical history recorded. Gynecological History Statement/Question Response Date of Last Pap Smear 07/13/2018 Date of Last Mammogram 08/13/2020 Date of Last Colonoscopy 07/13/2015 Obstetrics History GPAL:G 2 P 0 0 0 1 Type Value Living 1 Total 2 Past Encounters Encounter ID Performer Location Encounter Start Date Encounter Closed Date Diagnosis/Indication Diagnosis SNOMED-CT Code Diagnosis ICD10 Code Diagnosis Note [id number] Kevin Vergara DO [facility] [place] [facility] [address] [place] [address] 04/19/2021 08:48:45 04/22/2021 19:12:13 Urge incontinence of urine 75751688 N39.41 1. Discussed OAB pathophysi ology. 2. Reviewed OAB treatment pathway 3. Will start by decreasing bladder irritants and no fluids after 7pm. Mixed urin laura incontinence 126730772 N39.46 1. We discussed the pathophysi ology of both DIRK and OAB. We discussed the workup and treatment options for both diagnosis. All questions were answered. 2. She will be scheduled for urodynamic testing to better characteri ze her urinary symptoms. Female str ess incontinence 20778783 N39.3 1. We discussed the pathophysi ology as well as treatment options which include PFPT, urethral bulking and Mid-urethr al sling. We discussed the R/B/A of each in detail. Retention of urine 52378 4002 R33.9 1. She will be scheduled for urodynamic testing to better characteri ze her urinary symptoms. 2. 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 Discussed treatment options including PFPT, Interstim, ISC and PTNSShe would like to start with PTNSShe does understand it will take 8 weeks to notice an improvemen t. Urge incon tinence of urine 43502230 N39.41 1. Discussed treatment options including interstim and PTNSShe would like to start with PTNS and understand s i will take 8 weeks to notice improvemen t Detrusor a nd sphincter dyssynergia 013159911 N36.44 1. This is treated through PFPT /biofeedba ck however she would mansoor to start with treatment of the UUI through PTNS before starting PFPT [id number] Kevin Vergara, DO [facility] [place] [address] [place] [address] 10/02/2021 08:15:38 10/02/2021 08:46:38 Urge incontinence of urine 71409210 N39.41 1. She states that she is getting symptom relief from her current OAB medicine and she is able to tolerate it2. We did discuss bladder botox including the 5% risk of retention requiring ISC. Wait to schedule Botox until her mediciatio ns no longer control her symptoms3. RTC in 6 months [id number] _ATHENA_M IGRATION_ DEFAULT_1 _3899 , 12/22/2013 00:00:00 01/10/2014 13:22:14 [id number] [facility] [address] [address] 09/22/2018 00:00:00 09/24/2018 09:28:44 [id number] [facility] [address] [place] [address] 09/24/2018 00:00:00 09/24/2018 11:36:36 [id number] [facility] Procedure [address] [place] [address] 1 09/27/2018 00:00:00 09/28/2018 09:14:07 [id number] [facility] [address] [place] [address] 1 10/05/2018 00:00:00 10/08/2018 10:06:30 [id number] [facility] [address] [address] 1 10/19/2018 00:00:00 10/19/2018 10:05:31 [id number] [facility] [address] [address] 1 11/11/2018 00:00:00 11/12/2018 09:08:20 [id number] [facility] [address] [address] 1 02/02/2019 00:00:00 02/02/2019 15:14:13 [id number] [facility] [address] [place] [address] 1 03/03/2019 00:00:00 03/03/2019 11:15:40 [id number] [facility] [address] [place] [address] 1 03/28/2019 00:00:00 03/28/2019 13:00:55 [id number] [facility] [address] [place] [address] 1 06/13/2019 00:00:00 06/13/2019 09:24:47 [id number] [facility] [address] [place] [address] 1 07/08/2019 00:00:00 07/08/2019 14:17:49 [id number] [facility] [address] [place] [address] 1 07/21/2019 00:00:00 07/21/2019 12:06:27 [id number] [facility] [address] [place] [address] 1 08/16/2019 00:00:00 08/16/2019 09:16:07 [id number] [facility] [address] [place] [id number] 1 09/19/2019 00:00:00 09/19/2019 09:21:59 [id number] [facility] [address] [place] [address] 1 11/01/2019 00:00:00 11/01/2019 12:13:33 [id number] [facility] [address] [place] [address] 1 12/21/2019 00:00:00 12/21/2019 10:27:19 [id number] [facility] [address] [place] [address] 1 12/23/2019 00:00:00 12/23/2019 09:01:03 [id number] [facility] [address] [place] [address] 1 02/08/2020 00:00:00 02/08/2020 09:10:16 [id number] [facility] [address] [place] [address] 1 02/10/2020 00:00:00 02/10/2020 13:21:38 [id number] [facility] [address] [place] [address] [address] [place] [address] 04/04/2020 00:00:00 04/04/2020 09:00:10 [id number] [facility] [address] [place] [address] 1 04/27/2020 00:00:00 04/27/2020 10:09:15 [id number] [facility] [address] [place] [address] 1 05/15/2020 00:00:00 05/15/2020 13:59:03 [id number] [facility] [address] [place] [id number] 1 05/17/2020 00:00:00 05/17/2020 16:07:48 [id number] [facility] [address] [place] [id number] 1 05/23/2020 00:00:00 05/23/2020 10:31:13 [id number] [facility] [address] [place] [address] 1 07/23/2020 00:00:00 07/23/2020 08:54:39 [id number] Karsten Tobias MD [facility] [address] [place] [address] 03/31/2022 10:52:11 03/31/2022 15:22:09 Anemia 031265590 D64.9 Iron deficiency 27366962 E61.1 History of bariatric surgical procedure [id number] Z98.84 Health Concerns Section Related Observation LastModified by Organization Detai ls LastModified Time None Recorded Concern Status LastModified by Organization Details LastModified Time None Recorded Advance Directives Directive None Recorded Payers Encounter Date Sequence Insurance Name Policy Number Policy Burdick Covered Member ID Burdick Member ID Guarantor Name 2021 2 () Hillary A [place] [id number] Hillary Jenny [place] 2021 1 [place] Hillary A Naila [id number] Hillary Jenny [place] 06/11/2021 2 () Hillary A [place] [id number] Hillary Jenny [place] 06/11/2021 1 [place] Hillary A Naila [id number] Hillary Jenny Naila 06/11/2021 2 () Hillary A [place] [id number] Hillary Jenny Naila 06/11/2021 1 [place] A [place] [id number] Hillary Jenny [place] 10/02/2021 2 () Hillary A Naila [id number] Hillary Jenny [place] 10/02/2021 1 [place] Hillary A Naila [id number] Hillary Jenny [place] 03/31/2022 2 () Hillary A [place] [id number] Hillary Jenny [place] 03/31/2022 1 [place] A [place] [id number] Hillary Jenny [place] Notes Date Note Type Note Provider Name and Address Organization Details Recorded Time 2021 text/html Patient presents today for UDS, she did not have UDS due to positive leukocytes. She is not symptomatic with uti. Kevin Vergara DO [address], [place], [address], [facility] 2021 16:06:42 06/11/2021 text/html Patient presents today for follow up. She had uds done today. She is mostly bothered by urgency. She does not wake up wet. She does leak with standing. She does have urinary frequency. [facility] 05/14/21Patient presents today for UDS, she did not have UDS due to positive leukocytes. She is not symptomatic with uti. Kevin Vergara DO [address], [place], [address], [facility] 06/12/2021 10:54:30 10/02/2021 text/html She returns to [facility] today for a follow up on her UUI and retention. She would like to discuss bladder botox and see if that is an option for her. She states that she did not do PTNS. She did have UDS. DO @ 350 mL [facility] 06/11/2021atient presents today for follow up. She had uds done today. She is mostly bothered by urgency. She does not wake up wet. She does leak with standing. She does have urinary frequency. [facility] 05/14/21Patient presents today for UDS, she did not have UDS due to positive leukocytes. She is not symptomatic with uti. Kevin Vergara DO [address], [place], [address], [facility] 10/02/2021 11:00:30 03/31/2022 text/html Diagnosis:1. Normochromic normocytic anemia with history of iron deficiency due to upper gastrointestinal hemorrhage.-Labs from 12/12/2021 during hospitalization [facility]: Hemoglobin 8.3, hematocrit 26.8, MCV 83.0, platelet count 402. C-reactive protein 11.82, haptoglobin 288, CECIL negative. Ferritin 144, folic acid 6.1, B12 356.-S/p gastric bypass surgery with Maisha-en-Y gastrojejunostomy and history of large marginal ulcer involving gastrojejunal anastomotic site noted on EGD December 27, 2015-Stage IIIa chronic kidney disease 2. History of mild thrombocytosis consistent with secondary thrombocytosis due to above. Current treatment:Observation with consideration for parenteral iron therapy.-03/31/2022: WBC 7.68, hemoglobin 10.8, MCV 79.1, platelet 377, ferritin 22. Interval history:Ms. Yoo is seen today for follow-up on normochromic normocytic anemia noted during recent hospitalization and with prior history of upper gastrointestinal hemorrhage and Maisha-en-Y gastric bypass. Her work-up during the hospitalization was most remarkable for presence of normal ferritin but with significant inflammation with C-reactive protein of 11.82. She also had borderline low serum B12 and folate levels and was placed on supplements for these. There were no other findings and she ended up being discharged to rehab. Ms. Yoo has no idea why she is here today. She adamantly denies being seen in December and denies even being hospitalized at that time. She notes that she is feeling relatively well at this point with no shortness of breath, chest pains or any lightheadedness or dizziness. She has not had any bleeding and denies having any abdominal pains or nausea. Karsten Tobisa MD [address] , [place], [address], [facility] 04/02/2022 10:18:09 OBGyn Episode No OBEpisode recorded.
--- OUTSIDE RECORDS SUMMARY | 2024-10-24 06:02 | XMS_ITS | Clinical Summary ---
Author Organization [facility] Address [address] [facility] [address] [place] [address] Phone Care Team Providers Care Director Of Business Services Name Role Phone Unavailable Primary Care Provider Unavailabl e Medications acetaminophen (TYLENOL) 325 MG tablet Take 650 mg by mouth every 4 (four) hours if needed for mild pain Active albuterol HFA (PROVENTIL HFA;VENTOLIN HFA) 108 (90 Base) MCG/ACT inhaler Inhale 2 puffs every 6 (six) hours if needed for wheezing Active amiodarone (PACERONE) 200 MG tablet Take 200 mg by mouth 1 (one) time each day Active amLODIPine (NORVASC) 5 MG tablet Take 5 mg by mouth 1 (one) time each day Active apixaban (ELIQUIS) 5 MG tablet Take 5 mg by mouth in the morning and 5 mg in the evening. Active atorvastatin (LIPITOR) 40 MG tablet Take 40 mg by mouth 1 (one) time each day Active bisoprolol (ZEBETA) 5 MG tablet Take 0.5 mg by mouth 1 (one) time each day Active buPROPion (ZYBAN) 150 MG 12 hr tablet Take 150 mg by mouth in the morning and 150 mg in the evening. Do not crush, chew, or split. . Active calcium carbonate (TUMS) 500 MG chewable tablet Chew 1 tablet 1 (one) time each day Active Cholecalciferol (Vitamin D) 50 MCG (1999 UT) capsule Take by mouth Active cloNIDine (CATAPRES) 0.1 MG tablet Take 0.1 mg by mouth in the morning and 0.1 mg in the evening. Active cyanocobalamin (VITAMIN B-12) 1000 MCG tablet Take 100 mcg by mouth 1 (one) time each day Active Fluticasone Furoate-Vilante rol 100-25 MCG/ACT aerosol powder Inhale Active furosemide (LASIX) 20 MG tablet Take 20 mg by mouth in the morning and 20 mg in the evening. Active guaiFENesin-cod eine (ROBITUSSIN-AC) 100-10 MG/5ML liquid Take 5 mL by mouth 3 (three) times a day if needed for cough Active losartan (COZAAR) 25 MG tablet Take 25 mg by mouth 1 (one) time each day Active Magnesium Hydroxide (MILK OF MAGNESIA PO) Take 30 mL by mouth if needed Active pantoprazole (PROTONIX) 40 MG EC tablet Take 40 mg by mouth 1 (one) time each day before breakfast Do not crush, chew, or split. Active risedronate (ACTONEL) 35 MG tablet Take 35 mg by mouth every 7 (seven) days Take in morning with full glass of water on an empty stomach. No food, drink, meds, or lying down for 30 minutes after. Active traZODone (DESYREL) 100 MG tablet Take 100 mg by mouth every night Active Social History Tobacco Use Types Packs/Day Years Used Date Smoking Tobacco: Former Cigarettes Smokeless Tobacco: Never Tobacco Cessation:Counseling Given: Not Answered Alcohol Use Standard Drinks/Week Comments Never 0 (1 standard drink = 0.6 oz pur e alcohol) Comments Unknown Sex and Gender Information Value Date Recorded Sex Assigned at Not on file Legal Sex Female 9:57 AM EST Gender Identity Not on file Sexual Orientation Not on file Last Filed Vital Signs Vital Sign Reading Time Taken Comments Blood Pressure 124/70 09/10/2022 2:41 PM EST Pulse 72 09/10/2022 2:41 PM EST Temperature - - Respiratory Rate - - Oxygen Saturation - - Inhaled Oxygen Concentration - - Weight 55.3 kg (122 lb) 09/10/2022 2:41 PM EST Height - - Body Mass Index - - Plan of Treatment Health Maintenance Due Date Last Done Comments Pneumococcal Vaccine: 50+ Ye ars (1 of 2 - PCV) 1969 Influenza Vaccine (Season Ended) 2025 Hepatitis B Vaccine Aged Out No longe r eligible based on patient's age to complete this topic Insurance Medicare Spina Bifida ([id number]) Medicare Spina Bifida ([id number])
[2024-10-24 06:18] LABS: Basophils Absolute Auto 0.2 X10*3/uL (0.0-0.2); Basophils Percent Auto 1.6 % (0-2); Eosinophils Absolute Auto 0.3 X10*3/uL (0.0-0.4); Eosinophils Percent Auto 2.5 % (0-4); Hematocrit 43.9 % (37.0-47.0); Hemoglobin 13.3 g/dl (12.0-16.0); Imm Gran Abs Auto 0.07 X10*3/uL (0.00-0.03); Imm Gran Pct Auto 0.6 % (0.0-0.4); Lymphocytes Absolute Auto 1.9 X10*3/uL (1.2-4.9); Lymphocytes Percent Auto 15.8 % (20-40); Mean Corpuscular HGB Conc 30.3 g/dl (31.0-35.0); Mean Corpuscular Hemoglobin 23.5 pg (27.0-33.0); Mean Corpuscular Volume 77.6 fL (80.0-98.0); Mean Platelet Volume 10.7 fL (9.4-12.3); Monocytes Absolute Auto 0.6 X10*3/uL (0.1-1.2); Monocytes Percent Auto 5.2 % (2-11); Neutrophils Absolute Auto 9.1 x10*3/uL (2.0-8.3); Neutrophils Percent Auto 74.3 % (45-73); Red Blood Count 5.66 X10*6/uL (4.20-5.50); Red Cell Distribution Width 18.9 % (11.0-16.0); White Blood Count 12.2 X10*3/uL (4.8-10.8)
[2024-10-24 06:39] LABS: Alanine Aminotransferase 30 U/L (0-31); Albumin Level 3.7 g/dL (3.5-5.0); Alkaline Phosphatase 100 U/L (39-117); Anion Gap 11 (12-20); Aspartate Amino Transferase 35 U/L (5-31); Bilirubin Total 0.5 mg/dL (0.0-1.0); Blood Urea Nitrogen 11 mg/dL (9-16); Calcium 8.6 mg/dL (8.4-10.2); Carbon Dioxide 21 mmol/L (22-29); Chloride 110 mmol/L (96-108); Estimated Glomerular Filt Rate > 60; Glucose Random 105 mg/dL (60-115); Potassium 3.6 mmol/L (3.3-5.1); Sodium 138 mmol/L (135-145); Total Protein 6.6 g/dL (6.5-8.0)
[2024-10-24 07:10] LABS: Platelet Count 1103 X10*3/uL (160-400)
[2024-10-24 14:04] LABS: MANUAL DIFF FLAG NO
[2024-10-24 14:28] LABS: Basophils Absolute Auto 0.1 X10*3/uL (0.0-0.2); Basophils Percent Auto 1.1 % (0-2); Eosinophils Absolute Auto 0.2 X10*3/uL (0.0-0.4); Eosinophils Percent Auto 1.4 % (0-4); Hematocrit 44.9 % (37.0-47.0); Hemoglobin 14.1 g/dl (12.0-16.0); Imm Gran Abs Auto 0.05 X10*3/uL (0.00-0.03); Imm Gran Pct Auto 0.4 % (0.0-0.4); Lymphocytes Absolute Auto 1.6 X10*3/uL (1.2-4.9); Lymphocytes Percent Auto 14.4 % (20-40); Mean Corpuscular HGB Conc 31.4 g/dl (31.0-35.0); Mean Corpuscular Hemoglobin 23.8 pg (27.0-33.0); Mean Corpuscular Volume 75.8 fL (80.0-98.0); Mean Platelet Volume 10.8 fL (9.4-12.3); Monocytes Absolute Auto 0.4 X10*3/uL (0.1-1.2); Monocytes Percent Auto 3.9 % (2-11); Neutrophils Absolute Auto 8.9 x10*3/uL (2.0-8.3); Neutrophils Percent Auto 78.8 % (45-73); Red Blood Count 5.92 X10*6/uL (4.20-5.50); Red Cell Distribution Width 19.5 % (11.0-16.0); White Blood Count 11.4 X10*3/uL (4.8-10.8)
[2024-10-24 14:32] LABS: Platelet Count 1185 X10*3/uL (160-400)
== END 2024-10-24 05:48 | disposition home or self-care (01) ==
LOC: HO.MMNH3L 05:47
PROVIDERS: Family Medicine; Visit Provider Nurse Practitioner
DX: J44.9 Chronic obstructive pulmonary disease, unspecified (principal); F41.1 Generalized anxiety disorder; U07.1 COVID-19; I10 Essential (primary) hypertension
CPT/HCPCS: 36415; 80053; 85025

== ENCOUNTER 2024-10-26 05:35 | Outpatient (REF) | payer MEDICARE, SELFPAY ==
[2024-10-26 05:38] LABS: MANUAL DIFF FLAG NO
--- OUTSIDE RECORDS SUMMARY | 2024-10-26 05:38 | XMS_ITS | Continuity of Care Document ---
Author Organization [facility], [facility] Address [address] [place] [address] Care Team Providers Care Furnace Helper Name Role Phone MARCIO DONG 3RD FLOOR [...] Address Organization Details Recorded Time Recurrent falls 136595687 Active 2022 JUAN MANUEL MORALES NP [address] , [address], [place], [address], [facility] 3 11:13:43 Osteoarthr itis 620031302 Active 2022 JUAN MANUEL MORALES NP [address] , [address], [place], [address], [facility] 3 11:13:48 Chronic obstructiv e pulmonary disease 32067624 Active 2022 JUAN MANUEL MORALES NP [address] , [address], [place], [address], [facility] 3 11:13:52 Gastroesop hageal reflux disease without esophagiti s 185790771 Active 2022 JUAN MANUEL MORALES NP [address] , [address], [place], [address], [facility] 3 11:13:58 Congestive heart failure 15221908 Active 2022 JUAN MANUEL MORALES NP [address] , [address], [place], [address], [facility] 3 11:14:03 Atrial fibrillati on 49568824 Active 2022 JUAN MANUEL MORALES NP [address], [address], [place], [address], [facility] 3 11:14:08 Hematoma of right thigh 428530978842 41271 Active 2022 JUAN MANUEL MORALES NP [address], [address], [place], [address], [facility] 3 11:14:21 Essential hypertensi on 16809448 Active 2022 JUAN MANUEL MORALES NP [address], [address], [place], [address], [facility] 3 11:40:46 Hyperlipid emia 23021274 Active 2022 JUAN MANUEL MORALES NP [address], [address], [place], [address], [facility] 3 11:41:07 Mixed anxiety and depressive disorder 627026692 Active 2022 JUAN MANUEL MORALES NP [address], [address], [place], [address], [facility] 3 11:41:48 Impaired cognition 266945711 Active 2022 Sandra Morrison MD [address], [address], [place], [address], [facility] 3 01:04:56 Overactive urinary bladder 588442112 Active 2022 Sandra Morrison MD [address], [address], [place], [address], [facility] 3 01:13:05 Dry eyes 261267002 Active 2022 Sandra Morrison MD [address], [address], [place], [address], [facility] 3 01:14:09 Hematoma 503763276 Active 2022 left buttock JUAN MANUEL MORALES NP [address], [address], [place], [address], [facility] 3 13:03:34 Leukocytos is 745613839 Active 2023 JUAN MANUEL MORALES NP [address] [facility], [address], [place], [address], [facility] 4 12:21:55 Restless legs 81629999 Active 2023 Sandra Morrison MD [address] [facility], [address], [place], [address], [facility] 4 18:41:39 Mixed urinary incontinen ce 423610213 Active 2023 Sandra Morrison MD [address] [place] [address], [facility] [address], [place], [address], [facility] [employer] 4 18:42:46 Bacterial conjunctiv itis 963582109 Active 2023 REGI COLÓN [address] [place] [address], [facility] [address], [place], [address], [facility] 4 17:01:03 Thrombocyt osis 1694288 Active 2024 Abhi Erickson MD [address] [place] [address], [facility] [address], [place], [address], [facility] [employer] 5 13:01:15 Notes:Some problems listed i n Document: #[id number] could not be added to this patient's [...] Avai lable Vitals Date Recorded Body height Systolic blood pressure Diastolic blood pressure Provider Name and Address Organization Details Last Updated DateTime 10/24/2024 167.64 cm 140 mm[Hg] 80 mm[Hg] Abhi Erickson MD [address] [place] [address], [facility] [address], [place], [address], [facility] 10/24/2024 12:57:01 Social History Question Answer Notes LastModified by Organizat ion Details LastModified Time Tobacco Smoking Status Former Smoker JUAN MANUEL MORALES, TONY [address] [facility], [address], [place], [address], [employer] [facility] 08/08/2022 11:11:20 Do You Have An Advance Directive? Yes Information not available 08/11/2022 What Is Your Level Of Alcohol Consumption? None Information not available 08/08/2022 What Is Your Code Status? Full Code Information not available 08/11/2022 Where Do You Live? [facility], Previously Lived Alone, No Stairs Information not available 05/15/2023 Legal Guardian? No Informati on not available 08/12/2022 Do You Have A Medical Power Of Business Process Associate? Yes Information not available 08/12/2022 What Was [...] adjuvanted, quadrivalent, PF 05/22/2022 completed Maryam hernandez, [facility] 07/30/2023 12:41:28 Past Encounters Encounter ID Performer Location Encounter Start Date Encounter Closed Date Diagnosis/Indication Diagnosis SNOMED-CT Code Diagnosis ICD10 Code Diagnosis Note [id number] REGI COLÓN [address] [place] [address] [place] [address] 10/09/2024 10:55:30 10/13/2024 16:07:53 Mixed anxiety and depressive disorder 260823857 F41.8 stablecont inue escitalopr am, BusPIRone and trazodone Impaired cognition 46399 6002 R41.89 Continue supportive care, expect decline.HC P invokedcon tinue to monitor mood and behaviors with recent med changes Essential hypertension 96125231 I10 stableCont inue bisoprolol 2.5 mg qd, lasix 20 mg qd, losartan 25 mg qd. amlodipine 5 mg qd and clonidine 0.1 mg BID.Monito r BP and labs. Congestive heart failure 72835478 I50.22 euvolemic. stableCont inue bisoprolol 2.5 mg qd, lasix 20 mg qd and losartan 25 mg qd.Monitor resp. status, fluid status, wts and labs. Atrial fibrillation 4943 6004 I48.0 stablerate controlled cont amiodarone to 100 mg qdContinue eliquis 5 mg BID for AC.Monitor HR and bleeding risk. Chronic ob structive pulmonary disease 15716948 J43.8 stableCont inue Advair 100/25 mcg BID and albuterol MDI 2 puffs q 4 hrs prn.Monito r resp. status. Gastroesop hageal reflux disease without esophagitis 090908995 K21.9 stabletole rating a regular diet, no reported GI upsetpanto prazole discontinu ed due to QTc Hyperlipidemia 44162890 E78.49 Continue atorvastat in 40 mg qd.Monitor labs as outpt. [id number] MD MARCIO Ayers [address] [place] [address] [place] [address] 10/12/2024 11:19:17 10/14/2024 08:28:33 Impaired cognition 105016702 R41.89 baseline impaired cognitionH CP invokedmon itor for behaviorsp sych eval prn Pruritic rash 54733610 L 28.2 eschar x 2 present left wristdoes not appear infectedsu rrounding pruritisat arax 25 mg q 8 prnmonitor for effect [id number] MD MARCIO Ayers [address] [place] [address] [place] [address] 10/24/2024 12:55:25 10/24/2024 13:06:13 Thrombocytosis 3053851 D75.839 D75.838 acute thrombocyt osisrepeat stat cbc to recheck plt levelif remains elevated will starthydre a 1000 mg qd and request heme consult Leukocytosis 808381297 D 72.829 see above Impaired cognition 58298 6002 R41.89 baseline impaired cognitionH CP invokedcoo rdinate with HCP as needed for further workup Health Concerns Section Related Observation LastModified by Organization Detai ls LastModified Time None Recorded Concern Status LastModified by Organization Details LastModified Time None Recorded Payers Encounter Date Sequence Insurance Name Policy Number Policy Burdick Covered Member ID Burdick Member ID Guarantor Name 10/24/2024 1 [place]ICARE [place]: [employer] Hillary Pena Naila [id number] [employer] 10/24/2024 2 () Hillary [employer] [id number] Hillary [employer] Notes Date Note Type Note Provider Name and Address Organization Details Recorded Time 10/24/2024 text/html Patient is a 74 yo female resident seen for acute rounding. CBC was ordered showing significant elevated of skd=4902 and mild elevation of WBC. Patient with baseline dementia lying in bed in NAD Abhi Erickson MD [address] [facility], [address], [place], [address], [facility] 10/24/2024 13:06:12 OBGyn Episode No OBEpisode recorded.
--- OUTSIDE RECORDS SUMMARY | 2024-10-26 05:39 | XMS_ITS | Data Portability ---
Author Organization [place] [facility] SANTO gonzalez Inpt Address [address] [place] [address] Care Team Providers Care Director Speech Language Name Role Phone ANTON JEWELL Primary Care Provider [phone] ANTON JEWELL Referring Provider ANGE BARROW Primary [...] & TFESI with 95% relief Physical Therapy: [facility] 04/2019 Surgeries: T11, L2, and [...] pain. I reviewed the MRI done at [facility] which shows a subacute T12 fracture below her previous T11 kyphoplasty and we will work to add her onto the schedule this week for T12 kyphoplasty plus or minus epidural injection. meriatta Not available 05/15/2020 13:17:03 05/17/2020 05/17/2020 Thoracic kyphoplasty Pre/postop diagnosis: 1. T12 katia fracture. 2. Thoracic pain and lumbar pain 3. Osteoporosis. Procedure: 1. [id number] 2. L3-4 translaminar epidural injection Surgeon: Gorge [...] - Caudal SHOLA with conscious sedation 2019 [id number] Irene Chu MD, [address] [place] [address], [facility] [address], [address], 0 11:02:47 Surgeries kyphoplast y, thoracic (SURG) 2019 [email or web address] Gorge Edward MD, [address] [place] [address], [address], [place], [address], 0 13:47:09 Imaging None recorded. Medication Orders None recorded. Patient TargetsNo targets recorded. Patient InstructionsNo instructions recorded. Reason for Referral None Reported. Results Created Date Observation Date Name Description Value Unit Range Abnormal Flag Note LastModifiedBy Organization Detail LastModifiedTime 05/15/20 20 05/09/2020 MRI, thora cic spine , w/o contr ast No observ ation record ed. [email or web address] Not Available 09/2019 15:17:08 Result Notes None recorded. Problems Name Problem SNOMED Code Status Onset Date Resolution Date Notes Provider Name and Address Organization Details Recorded Time Low back pain 626150098 Active 2018 Meri Mejia null [place] - [facility] 9 10:19:48 Thoracic back pain 838890030 Active Shameka Myers null [place] - [facility] 9 09:43:28 Fracture of humerus 68844695 Active 2013 Spiral moderately displaced left humerus fracture. Roro hernandez [place] - [facility] 4 15:36:34 Problem Notes None recorded. Procedures Surgical History Date Name Laterality Status Provider Name and Address Organization Details Recorded Time 07/23/19 21 .Imaging Interpretation completed Sandra Hernández APRN-HAI [address] [place] [address],[address], [place], [address], [place] - [facility] 07/23/2020 08:53:37 05/23/20 20 .Imaging Interpretation completed RAFAL Perrin [address] [place] [address],[address], [place], [address], [place] - [facility] 05/23/2020 10:26:09 05/17/20 20 procedure completed Birgit Sanchez [place] - [facility] 05/17/2020 07:04:13 04/27/20 20 IM Injection Combo (Depo/Tor/Lido) completed IRENE KELLER MD [address] [place] [address],[address], [place], [address], [place] [facility] 04/27/2020 09:44:32 [...] 19 Back/Neck/Spine Surgery completed IRENE KELLER MD [address] [place] [address],[address], [place], [address], [place] [facility] 03/03/2019 11:01:38 10/20/19 19 .Imaging Interpretation completed SAMSON SIERRA [address] [place] [address],[address], [place], [address], [facility] 10/19/2018 10:04:13 09/28/19 19 Back/Neck/Spine Surgery completed Lennox Bullock [place] - [facility] 09/27/2018 09:34:37 09/23/19 19 .Imaging Interpretation completed SAMSON IBARRA [address] [place] [address],[address], [place], [address], [facility] 09/24/2018 09:28:41 12/19/19 18 Other completed SAMSON IBARRA [address] [place] [address],[address], [place], [address], [facility] 09/24/2018 09:10:58 06/01/20 07 procedure on knee completed SAMSON IBARRA [address] [place] [address],[address], [place], [address], [facility] 09/24/2018 09:09:13 07/13/19 00 Other completed SAMSON IBARRA [address] [place] [address],[address], [place], [address], [facility] 09/24/2018 09:08:49 Gastric Bypass completed Michelle Perez [place] - [facility] 12/12/2013 15:55:51 Imaging Results Imaging Date Name Status LastModified by Organiz ation Details LastModified Time 05/09/2020 MRI, thoracic spine, w/o contrast completed [email or web address] Information not available 05/15/2020 15:17:08 Procedure Notes [...] 10 189 mm[Hg] 97 mm[Hg] Corrie Greenwood [facility] 0 09:20:59 Date Recorded Body height Provider Name an d Address Organization Details Last Updated DateTime 05/15/2020 170.18 cm Gorge turner MD [address] [facility],[address], [place], [address], [facility] 05/15/2020 13:18:58 Date Recorded Body height Body temperature Body mass index (BMI) Body weight Pain severity - 0-10 verbal numeric rating [Score] - Reported Respiratory rate Oxygen saturation Oxygen saturation in Arterial blood by Pulse oximetry Heart rate Systolic blood pressure Diastolic blood pressure Provider Name and Address Organization Details Last Updated DateTime 0 170.18 cm 98.1 [degF] 26.5 kg/m2 40395.1 1 g 9 16 /min 97 % 97 % 92 /min 170 mm[Hg] 100 mm[Hg] Birgit Sanchez [facility] 0 07:03:28 Date [...] /min 174 mm[Hg] 93 mm[Hg] Suzi Marshall [facility] 0 08:50:28 Date Recorded Body height Body temperature Oxygen saturation Oxygen saturation in Arterial blood by Pulse oximetry Heart rate Body mass index (BMI) Body weight Systolic blood pressure Diastolic blood pressure Provider Name and Address Organization Details Last Updated DateTime 1 170.18 cm 97.4 [degF] 98 % 98 % 90 /min 26.3 kg/m2 85520.5 2 g 150 mm[Hg] 95 mm[Hg] Lu MARTINEZ [place] - [facility] 1 08:27:49 Social History Question Answer Notes LastModified by Organizat ion Details LastModified Time Tobacco Smoking Status Current Every Day Smoker Not Available [facility] 05/15/2020 03:44:21 What Is Your Level Of Alcohol Consumption? None [id number] Information not available 05/15/2020 Are You Blind Or Do You Have Difficulty Seeing? No [id number] Information not available 05/15/2020 In The 14 Days Before Symptom Onset, Have You Had Close Contact With A Laboratory-confir med COVID-19 While That Case Was Ill? No [id number] Information not available 05/15/2020 If Patient Spent Time In [facility] - Does The Patient Live In [facility]? No [facility] Information not available 11/01/2019 In The 14 Days Before Symptom Onset, Have You Had Close Contact With A Person Who Is Under Investigation For COVID-19 While That Person Was Ill? No [id number] Information not available 05/15/2020 In The 14 Days Before Symptom Onset, Did The Patient Spend Time In [facility]? No [facility] Information not available 11/01/2019 Have You Been To An Area Known To Be High Risk For COVID-19? No [id number] Information not available 05/15/2020 Are You Currently Employed? No [id number] Information not available 05/15/2020 Are You Deaf Or Do You Have Serious Difficulty Hearing? No [id number] Information not available 05/15/2020 Which Of Your Hands Is Dominant? Right [id number] Information not available 05/15/2020 Teachers' Aide? No Information no t available 12/12/2013 Negative Retoucher? No Information no t available 12/12/2013 Marital Status Unknown Informatio n not available 12/12/2013 What Was The Date Of Your Most Recent Tobacco Screening? 02/02/2019 [id number] Information not available 05/15/2020 How Much Tobacco Do You Smoke? No Pt States She Is Smoking Roughly About 4 Cigs A Day [id number] Information not available 05/15/2020 Do You Use Any Illicit Or Recreational Drugs? No [id number] Information not available 05/15/2020 Sex: Unknown Functional Status Question Answer Note LastModified by Organization D etails LastModified Time Do you have difficulty walking or climbing stairs? Yes [id number] Information not available 05/15/2020 Do you have difficulty doing errands alone? No [id number] Information not available 05/15/2020 Do you have difficulty dressing or bathing? No [id number] Information not available 05/15/2020 Mental Status Question Answer Note LastModified by Organization D etails LastModified Time Do you have difficulty concentrating, remembering or making decisions? No [id number] Information no t available 05/15/2020 Family History Relationship Description Onset Age of this Age Resolved Age Notes LastModified by Organization Details LastModified Time Father Non-Hodgkin' s lymphoma (clinical) Not available 12/22 09:45:32 Mother History of cerebrovascu lar accident Not available 06/2014 09:45:32 Medical History Condition Response Coronary Artery Disease N Gout N Blood Transfusion N Emphysema N Head Trauma/Injury N COPD N Depression N Oxygen Use N Headaches/Migraines N Do you have a pacemaker? N Do you have Sleep Apnea? N Anxiety Disorder N Hyperlipidemia/ High Cholesterol N Acid Reflux (GERD) N Have you ever had a cardiac catherizatio n? N Cancer N Stroke N Crohn's Disease N Have you ever had open heart surgery? N Rheumatoid Arthritis N Atrial fibrillation N Fibromyalgia N Have you ever had a echocardiogram? N Scoliosis N Heart Disease/Heart Problems N Extreme Weight Gain N Migraines N Brain Tumors N DVT N Neck Pain N Brain Injury N Difficulty swallowing N Bleeding Disorder N Tuberculosis N Cerebral Palsy N AIDS/HIV N No Past Medical History N Do you have cardiac stents? N Asthma N Amputation N Diabetes Type II N Substance Abuse N Peripheral Vascular Disease N Hepatitis N Diabetes Type I N Prior/Current MRSA/Staph infection N Neuropathy N Pulmonary Embolism N PVD N Vascular Disease N Drug Abuse N Blood Clot(s) or DVT(s) N Back Injury N Alcohol Overuse/Alcohol Abuse N Liver Disease N Schizophrenia N Hypertension/High Blood Pressure Y Autoimmune disorders N Mumps N Parkinson's Disease N Lyme Disease N Kidney Problems N Angina N Thyroid Problems N Alzheimers N ADD/ADHD N Anemia N Thyroid Disease Hypo/Hyper N Multiple Sclerosis N Back Pain N Do you use a C-pap machine? N Heart Attack ([place]) N Mental Illness N Extreme Weight Loss N Have you ever had a stress test? N Seizures/Epilepsy N Dementia N Lupus N Aneurysm N Osteoporosis N Gynecological HistoryNo gynecological history recorded. Obstetrics History GPAL:G 0 P 0 0 0 0 Past Encounters Encounter ID Performer Location Encounter Start Date Encounter Closed Date Diagnosis/Indication Diagnosis SNOMED-CT Code Diagnosis ICD10 Code Diagnosis Note [id number] Blake Oneal [facility] Main Office [address] [facility] [address] [place] [address] 12/22/2013 09:12:20 12/26/2013 15:30:27 Fracture of humerus 73828956 [id number] SAMSON IBARRA [facility] Main [address] [place] [address],[address] [place] [address] 09/22/2018 07:29:35 09/22/2018 17:05:27 Low back pain 914769508 M54.5 Lumbar radiculopathy 128 M54.16 [id number] SAMSON IBARRA [facility] Main [address] [place] [address],[address] [place] [address] 09/24/2018 08:57:30 09/24/2018 09:40:12 Low back pain 399925520 M54.5 multiple compressio n fractures, T and L spine Posterior compartment low back pain 866529253 M54.5 Thoracic back pain 49982 8004 M54.6 Lumbar radiculopathy 128 M54.16 [id number] Gorge Edward MD [facility] Procedure Room [address] [place] [address],[address] [place] [address] 09/27/2018 09:10:21 09/27/2018 13:02:13 [id number] SAMSON SIERRA [facility] Main [address] [place] [address],[address] [place] [address] 10/05/2018 08:52:26 10/05/2018 10:09:33 Low back pain 938481868 M54.5 Lumbar radiculopathy 128 M54.16 Thoracic back pain 03663 8004 M54.6 [id number] SAMSON SIERRA [address] [place] [address] 10/19/2018 08:03:21 10/19/2018 09:03:49 Low back pain 818544355 M54.5 Lumbar radiculopathy 128 052384 M54.16 [id number] SAMSON SIERRA [address] [place] [address] 11/11/2018 07:48:23 11/11/2018 08:54:35 Low back pain 840840666 M54.5 Lumbar radiculopathy 128 356973 M54.16 [id number] Candy Amaya [address] [place], [place] [address] 02/02/2019 09:47:51 02/02/2019 10:19:11 Low back pain 098032508 M54.5 Lumbar radiculopathy 128 500309 M54.16 [id number] IRENE KELLER MD [facility] Procedure Room [address] [place] [address] 03/03/2019 08:06:43 03/03/2019 09:56:40 Chronic low back pain 022319727 M54.5 Lumbar radiculopathy 128 M54.16 [id number] IRENE KELLER MD [place] [address] 03/28/2019 09:17:16 03/28/2019 09:46:36 Chronic low back pain 311472299 M54.5 Lumbar radiculopathy 128 161491 M54.16 [id number] IRENE KELLER MD [place] [address] 06/13/2019 07:58:13 06/13/2019 08:29:06 Low back pain 523643352 M54.5 Lumbar radiculopathy 128 M54.16 [id number] IRENE KELLER MD [facility] Procedure Room [address] [place] [address],[address] [place] [address] 07/08/2019 12:43:24 07/08/2019 14:17:51 Chronic low back pain 417472278 M54.5 Lumbar radiculopathy 128 216920 M54.16 [id number] IRENE KELLER MD [address] [place] [address] 1 07/21/2019 08:23:30 07/21/2019 09:26:44 Chronic low back pain 478183267 M54.5 Lumbar radiculopathy 128 173946 M54.16 [id number] IRENE KELLER MD [address] [place] [address] 1 08/16/2019 08:07:07 08/16/2019 10:35:00 Low back pain 189056067 M54.5 Lumbar radiculopathy 128 194423 M54.16 [id number] IRENE KELLER MD [facility] Procedure Room [address] [place] [address],[address] [place] [address] 09/19/2019 07:47:43 09/19/2019 09:18:26 Lumbar radiculopathy 030234977 M54.16 Chronic low back pain 27 7075416 M54.5 [id number] IRENE KELLER MD [address] [place] [address] 11/01/2019 10:01:27 11/01/2019 10:41:04 Low back pain 358482320 M54.5 Arthropath y of lumbar facet joint 609485757 M46.96 [id number] IRENE KELLER MD [facility] Procedure Room [address] [place], [place] [address] [place], [place] [address] 12/21/2019 08:22:02 12/21/2019 10:27:45 Chronic low back pain 557949722 M54.5 Arthropath y of lumbar facet joint 752864334 M46.96 [id number] IRENE KELLER MD [facility] Main [address] [place], [place] [address] [place] [address] 12/23/2019 08:26:03 12/23/2019 08:57:38 Low back pain 959013376 M54.5 Arthropath y of lumbar facet joint 705846208 M46.96 [id number] IRENE KELLER MD [facility] Procedure Room [address] [place] [address] 1 02/08/2020 08:02:29 02/08/2020 09:15:40 Chronic low back pain 813995113 M54.5 Arthropath y of lumbar facet joint 555317760 M46.96 [id number] IRENE KELLER MD [place] [address] 1 02/10/2020 11:27:45 02/10/2020 12:25:15 Low back pain 814199051 M54.5 Arthropath y of lumbar facet joint 896619770 M46.96 [id number] IRENE KELLER MD [facility] Procedure Room [address] [place] [address] 1 04/04/2020 07:25:19 04/04/2020 10:37:27 Chronic low back pain 093164697 M54.5 Arthropath y of lumbar facet joint 616509393 M46.96 [id number] IRENE KELLER MD [facility] Main [address] [place] [address] 1 04/27/2020 09:01:48 04/27/2020 09:47:44 Low back pain 493446109 M54.5 Lumbar radiculopathy 128 804641 M54.16 [id number] Gorge Edward MD [facility] Main [address] [place] [address] 1 05/15/2020 13:15:42 05/15/2020 14:06:11 Compression fracture of thoracic vertebra 3818593392 104 M48.54XG T-11&L-4 (same bottle) [id number] Gorge Edward MD [facility] Procedure Room [address] [place], [place] [address] [place] [address] 05/17/2020 06:51:44 05/18/2020 10:14:45 [id number] Sandra Hernández APRN-BATCH AND FURNACE MANAGER [facility] Main [address] [facility] [place] [address] 05/23/2020 08:42:26 05/23/2020 09:10:42 Low back pain 071888783 M54.5 Thoracic back pain 00550 8004 M54.6 Wedge frac ture of thoracic vertebra 816417713 S22.000D T12 [id number] Sandra Hernández APRN-BATCH AND FURNACE MANAGER [facility] Main [address] [facility],[address] [place] [address] 07/23/2020 08:08:02 07/23/2020 08:53:22 Low back pain 255703788 M54.5 Thoracic back pain 62381 8004 M54.6 Health Concerns Section Related Observation LastModified by Organization Detai ls LastModified Time None Recorded Concern Status LastModified by Organization Details LastModified Time None Recorded Advance Directives Directive None Recorded Payers Encounter Date Sequence Insurance Name Policy Number Policy Burdick Covered Member ID Burdick Member ID Guarantor Name 04/27/2020 1 [place] Hillary A Naila [id number] Hillary A Hines 04/27/2020 2 [facility] (MEDICARE SUPPLEMENT) Hillary A Hines [id number] Hillary A Hines 05/15/2020 1 [place] Hillary A Hines [id number] Hillary A Hines 05/15/2020 2 [facility] (MEDICARE SUPPLEMENT) Hillary A Hines [id number] Hillary A Hines 05/17/2020 1 [place] Hillary A Hines [id number] Hillary A Naila 05/17/2020 2 [facility] (MEDICARE SUPPLEMENT) Hillary A Hines [id number] Hillary A Naila 05/23/2020 1 [place] Hillary Turner Hines [id number] Hillary Turner Naila 05/23/2020 2 [facility] (MEDICARE SUPPLEMENT) Hillary Turner Hines [id number] Hillary Turner Hines 07/23/2020 1 [place] Hillary A Hines [id number] Hillary A Hines 07/23/2020 2 [facility] (MEDICARE SUPPLEMENT) Hillary Turner Hines [id number] Hillary Turner Hines Notes Date Note Type Note Provider Name [...] physical therapy for her balance. She attended [facility] PT last in 2018. She completed [...] red flag symptoms. IRENE KELLER MD [address] [facility],[address], [place], [address], [facility] 04/27/2020 10:09:15 05/23/2020 text/html 70-year-old fema le [...] pain no fever chills RAFAL Perrin [address] [facility],[address], [place], [address], [facility] 05/23/2020 10:31:13 07/23/2020 text/html 70-year-old fema le [...] numbness tingling or weakness. RAFAL Perrin [address] [facility],[address], [place], [address], [facility] 07/23/2020 08:54:39 OBGyn Episode No OBEpisode recorded.
--- OUTSIDE RECORDS SUMMARY | 2024-10-26 05:39 | XMS_ITS | Data Portability ---
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 Lab unlisted lab - ferritin 2021 [facility] ([facility]), [address], [place], [address], 03:36:40 vitamin B12, serum 2021 [facility] ([facility]), [address], [place], [address], 03:36:40 folate, serum 2021 [facility] ([facility]), [address], [place], [address], 03:36:41 CBC w/ diff 2021 [facility] ([facility]), [address], [place], [address], 12:36:20 unlisted lab - ferritin 2021 [facility] ([facility]), [address], [place], [address], 14:56:47 CMP, serum or plasma 2021 [facility] ([facility]), [address], [place], [address], 15:46:55 C reactive protein, QN, serum or plasma 2021 022 [facility] ([facility]), [address] , [place], [address], 15:46:59 CBC w/ diff 2021 022 [facility] ([facility]), [address] , [place], [address], 03:28:01 culture, urethral 2020 021 [email or web address] 1 [facility] ([facility]), [address] , [place], [address], 12:25:36 Referral None recorded. Procedures None recorded. Surgeries None recorded. Imaging None recorded. Medication Orders Macrobid 100 mg capsule 2020 021 [email or web address] 4 [facility] [place], [address], 08:43:56 Patient TargetsNo targets recorded. Patient InstructionsNo instructions recorded. Reason for Referral None Reported. Results Created Date Observation Date Name Description Value Unit Range Abnormal Flag Note LastModifiedBy Organization Detail LastModifiedTime 05/14/2005/14/2021 CULTU RE, URINE culture, urine Sourc e: Urine Colle cted: 05/14 12:21 Site: Recei mario : 05/16 03:52 Cultu re, Urine FINAL 05/18 09:17 [facility] 1-10, 000 CFU/m L Mixed Ureth ral Katie Not Available [facility] [address] [facility], [place], [address], 05/18/2021 09:17:12 03/31/20 22 03/31/2022 CBC WITH DIFF WBC =7.68 thou/ cumm 3.90-1 1.20 Not Available [facility] ([facility]) [address] , [place], [address], 03/31/2022 12:36:20 09/19/20 22 03/31/2022 CBC WITH DIFF RBC =4.41 mill/ cumm 3.40-5 .40 Not Available [facility] ([facility]) [address], [place], [address], 03/31/2022 12:36:20 03/31/20 22 03/31/2022 CBC WITH DIFF hemoglobin =10.8 g/dL 10.8-1 5.5 Not Available [facility] ([facility]) [address], [place], [address], 03/31/2022 12:36:20 03/31/20 22 03/31/2022 CBC WITH DIFF hematocrit =34.9 % 33.0-4 5.0 Not Available [facility] ([facility]) [address] [place], [address], 03/31/2022 12:36:20 03/31/20 22 03/31/2022 CBC WITH DIFF MCV =79.1 fL 82.0-1 00.0 low Not Available [facility] ([facility]) [address], [place], [address], 03/31/2022 12:36:20 03/31/20 22 03/31/2022 CBC WITH DIFF MCH =24.5 pg 26.0-3 4.0 low Not Available [facility] ([facility]) [address] [place], [address], 03/31/2022 12:36:20 03/31/20 22 03/31/2022 CBC WITH DIFF MCHC =30.9 g/dL 32.0-3 6.0 low Not Available [facility] ([facility]) [address] [place], [address], 03/31/2022 12:36:20 03/31/20 22 03/31/2022 CBC WITH DIFF rdwsd =52.8 fL 35.1-4 6.8 high Not Available [facility] ([facility]) [address] , [place], [address], 03/31/2022 12:36:20 03/31/20 22 03/31/2022 CBC WITH DIFF MPV =10.9 fL 9.7-12 .8 Not Available [facility] ([facility]) [address] , [place], [address], 03/31/2022 12:36:20 03/31/20 22 03/31/2022 CBC WITH DIFF platelet count =377 thou/ cumm 140-44 0 Not Available [facility] ([facility]) [address] , [place], [address], 03/31/2022 12:36:20 03/31/20 22 03/31/2022 CBC WITH DIFF neutrophils auto =78.6 % 40.0-7 7.0 high Not Available [facility] ([facility]) [address], [place], [address], 03/31/2022 12:36:20 03/31/20 22 03/31/2022 CBC WITH DIFF immat granulocyte auto =0.3 % 0.0-0. 5 Not Available [facility] ([facility]) [address], [place], [address], 03/31/2022 12:36:20 03/31/20 22 03/31/2022 CBC WITH DIFF lymphocytes auto =14.1 % 14.0-4 7.0 Not Available [facility] ([facility]) [address], [place], [address], 03/31/2022 12:36:20 03/31/20 22 03/31/2022 CBC WITH DIFF monocytes auto =5.2 % 0.0-13 .0 Not Available [facility] ([facility]) [address] [place], [address], 03/31/2022 12:36:20 03/31/20 22 03/31/2022 CBC WITH DIFF eosinophils auto =1.0 % 0.0-7. 0 Not Available [facility] ([facility]) [address], [place], [address], 03/31/2022 12:36:20 03/31/20 22 03/31/2022 CBC WITH DIFF basophils auto =0.8 % 0.0-2. 0 Not Available [facility] ([facility]) [address], [place], [address], 03/31/2022 12:36:20 03/31/20 22 03/31/2022 CBC WITH DIFF NRBC auto =0.0 /100_ WBC 0.0-0. 2 Not Available [facility] ([facility]) [address], [place], [address], 03/31/2022 12:36:20 03/31/20 22 03/31/2022 CBC WITH DIFF abs NRBC auto <0.01 thou/ cumm 0.00-0 .01 Not Available [facility] ([facility]) [address], [place], [address], 03/31/2022 12:36:20 03/31/20 22 03/31/2022 CBC WITH DIFF abs neutrophils auto =6.04 thou/ cumm 2.00-6 .80 Not Available [facility] ([facility]) [address], [place], [address], 03/31/2022 12:36:20 03/31/20 22 03/31/2022 CBC WITH DIFF abs immat gran auto =0.02 thou/ cumm 0.00-0 .04 Not Available [facility] ([facility]) [address] [place], [address], 03/31/2022 12:36:20 03/31/20 22 03/31/2022 CBC WITH DIFF abs lymphocytes auto =1.08 thou/ cumm 0.90-3 .00 Not Available [facility] ([facility]) [address] , [place], [address], 03/31/2022 12:36:20 03/31/20 22 03/31/2022 CBC WITH DIFF abs monocytes auto =0.40 thou/ cumm 0.20-0 .80 Not Available [facility] ([facility]) [address] [place], [address], 03/31/2022 12:36:20 03/31/20 22 03/31/2022 CBC WITH DIFF abs eosinophils auto =0.08 thou/ cumm 0.00-0 .40 Not Available [facility] ([facility]) [address] [place], [address], 03/31/2022 12:36:20 03/31/20 22 03/31/2022 CBC WITH DIFF abs basophils auto =0.06 thou/ cumm 0.00-0 .10 Not Available [facility] ([facility]) [address] , [place], [address], 03/31/2022 12:36:20 03/31/20 22 03/31/2022 LITO TIN [...] n and other findi ngs. Not Available [facility] ([facility]) [address] [place], [address], 03/31/2022 14:56:46 03/31/20 22 03/31/2022 COMPR EHENS KIN METAB OLIC PANEL glucose =124 mg/dL 74-100 high Not Available [facility] ([facility]) [address] [place], [address], 03/31/2022 15:46:54 03/31/20 22 03/31/2022 COMPR EHENS KIN METAB OLIC PANEL sodium =139 mmol/ L 136-14 5 Not Available [facility] ([facility]) [address], [place], [address], 03/31/2022 15:46:54 03/31/20 22 03/31/2022 COMPR EHENS KIN METAB OLIC PANEL potassium =4.4 mmol/ L 3.5-5. 2 Not Available [facility] ([facility]) [address], [place], [address], 03/31/2022 15:46:54 03/31/20 22 03/31/2022 COMPR EHENS KIN METAB OLIC PANEL chloride =102 mmol/ L 98-107 Not Available [facility] ([facility]) [address], [place], [address], 03/31/2022 15:46:54 03/31/20 22 03/31/2022 COMPR EHENS KIN METAB OLIC PANEL CO2 =23 mmol/ L 22-29 Not Available [facility] ([facility]) [address], [place], [address], 03/31/2022 15:46:54 03/31/20 22 03/31/2022 COMPR EHENS KIN METAB OLIC PANEL anion gap =14.0 7.0-17 .0 Not Available [facility] ([facility]) [address], [place], [address], 03/31/2022 15:46:54 03/31/20 22 03/31/2022 COMPR EHENS KIN METAB OLIC PANEL calcium =9.4 mg/dL 8.6-10 .5 Not Available [facility] ([facility]) [address] [place], [address], 03/31/2022 15:46:54 03/31/20 22 03/31/2022 COMPR EHENS KIN METAB OLIC PANEL BUN =13 mg/dL 8-23 Not Available [facility] ([facility]) [address] , [place], [address], 03/31/2022 15:46:54 03/31/20 22 03/31/2022 COMPR EHENS KIN METAB OLIC PANEL creatinine =0.93 mg/dL 0.50-0 .90 high Not Available [facility] ([facility]) [address] [place], [address], 03/31/2022 15:46:54 03/31/20 22 03/31/2022 COMPR EHENS KIN METAB OLIC PANEL eGFR >60.0 Not Available [facility] ([facility]) [address] [place], [address], 03/31/2022 15:46:54 03/31/20 22 03/31/2022 COMPR EHENS [...] or ethni c subgr oups, such as [facility] nics. Extre me body size, muscl e mass, or nutri brian l statu s may alter the eGFR. Refer to K/DOQ I guide lines for resul ts <60 (Kidn ey Disea se Outco mes Quali ty Initi ative ) Not Available [facility] ([facility]) [address] [place], [address], 03/31/2022 15:46:54 03/31/20 22 03/31/2022 COMPR EHENS KIN METAB OLIC PANEL BUN-creatini ne ratio =14 10-20 Not Available [facility] ([facility]) [address] [place], [address], 03/31/2022 15:46:54 03/31/20 22 03/31/2022 COMPR EHENS KIN METAB OLIC PANEL protein total =7.1 gm/dL 6.4-8. 3 Not Available [facility] ([facility]) [address], [place], [address], 03/31/2022 15:46:54 03/31/20 22 03/31/2022 COMPR EHENS KIN METAB OLIC PANEL albumin =3.6 gm/dL 3.5-5. 2 Renal Patie nts 3.1-4 .6 gm/dL Not Available [facility] ([facility]) [address], [place], [address], 03/31/2022 15:46:54 03/31/20 22 03/31/2022 COMPR EHENS KIN METAB OLIC PANEL globulin =3.5 gm/dL 1.4-4. 7 Not Available [facility] ([facility]) [address], [place], [address], 03/31/2022 15:46:54 03/31/20 22 03/31/2022 COMPR EHENS KIN METAB OLIC PANEL albumin/glob ulin ratio =1.0 1.2-3. 6 low Not Available [facility] ([facility]) [address], [place], [address], 03/31/2022 15:46:54 03/31/20 22 03/31/2022 COMPR EHENS KIN METAB OLIC PANEL alkaline phosphatase =193 U/L 35-104 high Not Available [facility] ([facility]) [address], [place], [address], 03/31/2022 15:46:54 03/31/20 22 03/31/2022 COMPR EHENS KIN METAB OLIC PANEL AST =23 U/L 0-32 Not Available [facility] ([facility]) [address], [place], [address], 03/31/2022 15:46:54 03/31/20 22 03/31/2022 COMPR EHENS KIN METAB OLIC PANEL ALT =17 U/L 0-33 Not Available [facility] ([facility]) [address] , [place], [address], 03/31/2022 15:46:54 03/31/20 22 03/31/2022 COMPR EHENS KIN METAB OLIC PANEL bilirubin total =0.39 mg/dL 0.00-1 .20 Not Available [facility] ([facility]) [address] , [place], [address], 03/31/2022 15:46:54 03/31/20 22 03/31/2022 C-CECY CTIVE PROTE IN C-reactive protein =0.30 mg/dL <0.5 Not Available [facility] ([facility]) [address] , [place], [address], 03/31/2022 15:46:58 12/20/19 22 12/19/2021 cardi ac telem etry No observ ation record ed. tganiki Mcarthur MD [address], [place], [address], 12/19/2021 12:51:23 12/20/19 22 12/19/2021 cardi ac telem etry No observ ation record ed. tganiki Mcarthur MD [address], [place], [address], 12/19/2021 12:59:04 12/21/19 22 12/20/2021 cardi ac telem etry No observ ation record ed. connor Mcarthur MD [address], [place], [address], 12/20/2021 10:57:55 02/27/20 22 01/16/2022 cardi ac telem etry MOBILE CARDIA C OP TELEME TRY Test Date: 01-16 Pat Name: LYNN REICH RN Depart ment: Sasha Lowe t ID: [id number] Room: [place] [address] Gender : Female Techni nikita: : 1949-07 Reques dar By: GLORIA SOSA Order Number : [id number] Mandeep garcia MD: BROOKE Valentine MD [...] //epip gayla.p merlin.he alth-f irst.o rg/sto re/H0/ [id number] 5899/c mact/H [id number] 899_20 [id number] .pdf [address] [facility] [address], [place], [address], 02/26/2022 15:26:55 02/27/20 22 12/18/2021 cardi ac telem etry MOBILE CARDIA C OP TELEME TRY Test Date: 01-16 Pat Name: LYNN REICH RN Depart ment: Sasha Lowe t ID: [id number] Room: [place] [address] Gender : Female Techni nikita: : 1949-07 Reques dar By: GLORIA SOSA Order Number : [id number] Mandeep garcia MD: BROOKE Valentine MD [...] //epip gayla.p merlin.he alth-f irst.o rg/sto re/H0/ [id number] 5899/c nmct/H [id number] 899_20 [id number] .pdf mgrow4 [facility] [address] , [place], [address], 02/26/2022 15:26:54 02/27/20 22 01/16/2022 mobil e cardi ac op telem etry intrp No observ ation record ed. INTERFACE [facility] [address] [place], [place], [address], 02/26/2022 11:22:57 Result Notes None recorded. 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 Not Available [facility] 9 06:54:48 Sensorine ural hearing loss 95207889 Active 2015 SENSORINEU RAL HEARING LOSS; Original code:H90.5 Entered By: Archie Miller [facility]/ OR; Signed By: Lev Thacker M.D. Not Available [facility] 9 06:54:48 Thoracic back pain 543098684 Active Not Available [facility] 2 07:15:58 Low back pain 080502521 Active 2018 Not Available [facility] 2 07:15:58 Fracture of humerus 37439121 Active 2013 Spiral moderately displaced left humerus fracture. Not Available [facility] 2 07:15:58 Anemia 231503144 Active 2021 Clau hernandez, [facility] 2 11:53:37 Iron deficienc y 61063272 Active 2021 Karsten Tobias MD [address] , [place], [address] , [facility] 2 10:14:11 History of bariatric surgical procedure 038896569 Active 2021 Karsten Tobias MD [address] , [place], [address] , [facility] 2 10:14:39 Iron deficienc y anemia 37737107 Active 2021 Clau Eduardo hernandez, [facility] 2 14:19:20 Problem Notes None recorded. Procedures Surgical History Date Name Laterality Status Provider Name and Address Organization Details Recorded Time 10/03/19 22 Procedure completed [facility] 10/02/2021 08:36:17 04/19/20 21 In and Out Catheterization completed Kevin Vergara DO [address] , [place], [address], [facility] 04/22/2021 17:13:23 08/13/19 21 Date of Last Mammogram completed [facility] 04/19/2021 14:17:27 07/13/19 19 Date of Last Pap Smear completed [facility] 04/19/2021 14:17:21 07/13/19 16 Date of Last Colonoscopy completed [facility] 04/19/2021 14:17:00 Imaging Results Imaging Date Name Status LastModified by Organiz ation Details LastModified Time 12/19/2021 cardiac telemetry completed connor Mcarthur MD [address], [place], [address], 12/19/2021 12:51:23 12/19/2021 cardiac telemetry completed connor Mcarthur MD [address], [place], [address], 12/19/2021 12:59:04 12/20/2021 cardiac telemetry completed connor Mcarthur MD [address], [place], [address], 12/20/2021 10:57:55 01/16/2022 cardiac telemetry completed [facility] [address] , [place], [address], 02/26/2022 15:26:55 12/18/2021 cardiac telemetry completed [address] [facility] [address] , [place], [address], 02/26/2022 15:26:54 01/16/2022 mobile cardiac op telemetry intrp completed INTERFACE [facility] [address], [place], [address], 02/26/2022 11:22:57 Procedure Notes None recorded. Medical [...] Updated DateTime 1 167.64 cm 23.9 kg/m2 16995.6 7 g 86 /min 180 mm[Hg] 98 mm[Hg] [facility] 1 12:18:54 Date Recorded Body height Heart rate Body mass index (BMI) Body weight Systolic blood pressure Diastolic blood pressure Provider Name and Address Organization Details Last Updated DateTime 1 167.64 cm 80 /min 23.9 kg/m2 17836.6 7 g 140 mm[Hg] 88 mm[Hg] [facility] 1 08:42:11 Date Recorded Body height Heart rate Body mass index (BMI) Body weight Systolic blood pressure Diastolic blood pressure Provider Name and Address Organization Details Last Updated DateTime 2 167.64 cm 86 /min 23.9 kg/m2 58846.6 7 g 147 mm[Hg] 88 mm[Hg] Yanely Elena [facility] 2 08:33:22 Date Recorded Body height Body mass index (BMI) Body weight Heart rate Respiratory rate Oxygen saturation Oxygen saturation in Arterial blood by Pulse oximetry Systolic blood pressure Diastolic blood pressure Provider Name and Address Organization Details Last Updated DateTime 2 167.64 cm 23.6 kg/m2 87098.4 9 g 103 /min 20 /min 96 % 96 % 164 mm[Hg] 79 mm[Hg] Bess Anaya [facility] 2 11:37:35 Social History Question Answer Notes LastModified by Organizat ion Details LastModified Time Tobacco Smoking Status Current Every Day Smoker Yanely Elena [facility] 04/19/2021 14:18:41 What Is Your Level Of [...] SNOMED-CT Code Diagnosis ICD10 Code Diagnosis Note [id number] Kevin Vergara DO [facility] [address] [facility] [address] [place] [address] 04/19/2021 08:48:45 04/22/2021 19:12:13 Urge incontinence of urine 44304465 N39.41 1. Discussed OAB pathophysi ology. 2. Reviewed OAB treatment pathway 3. Will start by decreasing bladder irritants and no fluids after 7pm. 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 We discussed the pathophysi ology of both DIRK and OAB. We discussed the workup and treatment options for both diagnosis. All questions were answered. 2. She will be scheduled for urodynamic testing to better characteri ze her urinary symptoms. 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 We discussed the pathophysi ology as well as treatment options which include PFPT, urethral bulking and Mid-urethr al sling. We discussed the R/B/A of each in detail. Retention of urine 51176 4002 R33.9 1. She will be scheduled for urodynamic testing to better characteri ze her urinary symptoms. 2. 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 Discussed treatment options including PFPT, Interstim, ISC and PTNSShe would like to start with PTNSShe does understand it will take 8 weeks to notice an improvemen t. Urge incon tinence of urine 75744579 N39.41 1. 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 This is treated through PFPT /biofeedba ck however she would mansoor to start with treatment of the UUI through PTNS before starting PFPT [id number] Kevin Vergara, DO [facility] [address] [facility] [place] [address] [place] [address] 10/02/2021 08:15:38 10/02/2021 08:46:38 Urge incontinence of urine 00958278 N39.41 1. She states that she is getting symptom relief from her current OAB medicine and she is able to tolerate it2. We did discuss bladder botox including the 5% risk of retention requiring ISC. Wait to schedule Botox until her mediciatio ns no longer control her symptoms3. RTC in 6 months [id number] _ATHENA_M IGRATION_ [id number] , 12/22/2013 00:00:00 01/10/2014 13:22:14 [id number] [facility] [address] [address] 1 09/22/2018 00:00:00 09/24/2018 09:28:44 [id number] [facility] Main [address] [place] [address] 31485-631 1 09/24/2018 00:00:00 09/24/2018 11:36:36 [id number] [facility] Procedure [address] [place] [address] 48990-030 1 09/27/2018 00:00:00 09/28/2018 09:14:07 [id number] [facility] Main [address] [place] [address] 74748-063 1 10/05/2018 00:00:00 10/08/2018 10:06:30 [id number] [facility] [address] 99923-185 1 10/19/2018 00:00:00 10/19/2018 10:05:31 [id number] [facility] [address] 80155-486 1 11/11/2018 00:00:00 11/12/2018 09:08:20 [id number] [facility] [address] 40820-043 1 02/02/2019 00:00:00 02/02/2019 15:14:13 [id number] [facility] Procedure [address] [place] [address] 88024-035 1 03/03/2019 00:00:00 03/03/2019 11:15:40 [id number] [facility] Main [address] [place] [address] 85821-865 1 03/28/2019 00:00:00 03/28/2019 13:00:55 [id number] [facility] Main [address] [place] [address] 40982-163 1 06/13/2019 00:00:00 06/13/2019 09:24:47 [id number] [facility] Procedure [address] [place] [address] 43595-867 1 07/08/2019 00:00:00 07/08/2019 14:17:49 [id number] [facility] Main [address] [place] [address] 22384-441 1 07/21/2019 00:00:00 07/21/2019 12:06:27 [id number] [facility] Main [address] [place] [address] 29745-272 1 08/16/2019 00:00:00 08/16/2019 09:16:07 [id number] [facility] Procedure [address] [place] [address] 14354-205 1 09/19/2019 00:00:00 09/19/2019 09:21:59 [id number] [facility] Main [address] [place] [address] 18224-027 1 11/01/2019 00:00:00 11/01/2019 12:13:33 [id number] [facility] Procedure [address] [place] [address] 04918-192 1 12/21/2019 00:00:00 12/21/2019 10:27:19 [id number] [facility] Main [address] [place] [address] 17602-075 1 12/23/2019 00:00:00 12/23/2019 09:01:03 [id number] [facility] Procedure [address] [place] [address] 79182-254 1 02/08/2020 00:00:00 02/08/2020 09:10:16 [id number] [facility] Main [address] [place] [address] 64071-228 1 02/10/2020 00:00:00 02/10/2020 13:21:38 [id number] [facility] Procedure [address] [place] [address] [address] [place] [address] 1 04/04/2020 00:00:00 04/04/2020 09:00:10 [id number] [facility] Main [address] [place] [address] 07106-887 1 04/27/2020 00:00:00 04/27/2020 10:09:15 [id number] [facility] Main [address] [place] [address] 40055-630 1 05/15/2020 00:00:00 05/15/2020 13:59:03 [id number] [facility] Procedure [address] [place] [address] 64578-215 1 05/17/2020 00:00:00 05/17/2020 16:07:48 [id number] [facility] Main [address] [place] [address] 47146-871 1 05/23/2020 00:00:00 05/23/2020 10:31:13 [id number] [facility] Main [address] [place] [address] 68370-697 1 07/23/2020 00:00:00 07/23/2020 08:54:39 [id number] Karsten Tobias MD [facility] [address] [place] [address] 03/31/2022 10:52:11 03/31/2022 15:22:09 Anemia 350647404 D64.9 Iron deficiency 68652045 E61.1 History of bariatric surgical procedure [id number] Z98.84 Health Concerns Section Related Observation LastModified by Organization Detai ls LastModified Time None Recorded Concern Status LastModified by Organization Details LastModified Time None Recorded Advance Directives Directive None Recorded Payers Encounter Date Sequence Insurance Name Policy Number Policy Burdick Covered Member ID Burdick Member ID Guarantor Name 2021 1 [place] Hillary A Barrington [id number] Hillary Jenny Naila 2021 2 () Hillary A Naila [id number] Hillary Jenny Barrington 06/11/2021 1 [place] Hillary A Barrington [id number] Hillary Jenny Barrington 06/11/2021 2 () Hillary A Naila [id number] Hillary Jenny Naila 06/11/2021 1 [place] A Naila [id number] Hillary Jenny Barrington 06/11/2021 2 () Hillary A Naila [id number] Hillary Jenny Barrington 10/02/2021 1 [place] Hillary A Barrington [id number] Hillary Jenny Barrington 10/02/2021 2 () Hillary A Barrington [id number] Hillary Jenny Barrington 03/31/2022 1 [place] Hillary A Naila [id number] Hillary Jenny Barrington 03/31/2022 2 () Hillary A Barrington [id number] Hillary Jenny Barrington Notes Date Note Type Note Provider Name and Address Organization Details Recorded Time 2021 text/html Patient presents today for UDS, she did not have UDS due to positive leukocytes. She is not symptomatic with uti. Kevin Vergara DO [address], [place], [address], [facility] 2021 16:06:42 06/11/2021 text/html Patient presents today for follow up. She had uds done today. She is mostly bothered by urgency. She does not wake up wet. She does leak with standing. She does have urinary frequency. [facility] 05/14/21Patient presents today for UDS, she did not have UDS due to positive leukocytes. She is not symptomatic with uti. Kevin Vergara DO [address], [place], [address], [facility] 06/12/2021 10:54:30 10/02/2021 text/html She returns to [facility] today for a follow up on her UUI and retention. She would like to discuss bladder botox and see if that is an option for her. She states that she did not do PTNS. She did have UDS. DO @ 350 mL [facility] 06/11/2021atient presents today for follow up. She had uds done today. She is mostly bothered by urgency. She does not wake up wet. She does leak with standing. She does have urinary frequency. [facility] 05/14/21Patient presents today for UDS, she did not have UDS due to positive leukocytes. She is not symptomatic with uti. Kevin Vergara DO [address], [place], [address], [facility] 10/02/2021 11:00:30 03/31/2022 text/html Diagnosis:1. Normochromic normocytic anemia with history of iron deficiency due to upper gastrointestinal hemorrhage.-Labs from 12/12/2021 during hospitalization [facility]: Hemoglobin 8.3, hematocrit 26.8, MCV 83.0, platelet [...] having any abdominal pains or nausea. Karsten Tobias MD [address] , [place], [address], [facility] 04/02/2022 10:18:09 OBGyn Episode No OBEpisode recorded.
--- OUTSIDE RECORDS SUMMARY | 2024-10-26 05:39 | XMS_ITS | Data Portability ---
Author Organization [place] [facility] Address [address] [place] [address] Care Team Providers Care Hot Stick Man Name Role Phone ALONSO ANDINO Primary Care [...] note she recently moved up here from [place] to move into an [employer]. She is not a great historian. She gives me a med list with only a few medicines however she has pill packs from [place] that are totally different medicines that her [...] James agree and recc emeregent eval at [facility] care PE - no s/s DVT< [...] Was able to discuss w/ PCP from [place] Dr Andino office who was only able to give me limited information and confirm she has seen cardiology in the past. Dr Mcarthur in [place] is mobile security specialist, I did have their number but I [...] off to Ayad Vaz. Expect called to [facility] ED w/ very thorough reasons for escalation adn I was thanked for this level of detail. I did pass along pt PCP names and specialist names I had from [place]. Pt is on agreement and verbalizes understanding [...] diogr am No observ ation record ed. [email or web address] Not Available 10:31:15 Result Notes None recorded. Procedures Surgical History Date Name Laterality Status Provider Name and Address Organization Details Recorded Time Medication Review completed SAMSON Hadley, [place], [address], [place] [facility] 05/27/2022 10:20:35 ECG Interpretation - [place], [address], [place] [facility] 05/27/2022 10:23:27 Cataract Surgery completed SAMSON Avila [address], [place], [address], [place] [facility] 05/27/2022 09:22:29 bypass of stomach completed SAMSON Landers [address], [place], [address], [place] [facility] 05/27/2022 09:22:41 Imaging Results Imaging Date Name Status LastModified by Organization Details LastModified Time 06/27/2022 electrocardiogram completed [email or web address] Infor mation not available 11/02/2023 10:31:15 Procedure [...] Former Smoker SAMSON Hadley [address], [place], [address], [place] [facility] 05/27/2022 09:22:59 What Is [...] available 05/27 09:23:23 Medical History Condition Response Diabetes N Coronary Artery Disease N CHF N Parkinson's Disease N Cancer N Stroke N Dementia N Asthma N Hypothyroidism N Depression N COPD N High Cholesterol N Rheumatoid Arthritis N Pulmonary Embolism N Hypertension Y A-fib N Osteoporosis N Kidney Disease N Gynecological HistoryNo gynecological history recorded. Obstetrics History GPAL:G 0 P 0 0 0 0 Past Encounters Encounter ID Performer Location Encounter Start Date Encounter Closed Date Diagnosis/Indication Diagnosis SNOMED-CT Code Diagnosis ICD10 Code Diagnosis Note [id number] SAMSON Eli [facility] [address] [place] [address] 05/27/2022 08:28:33 05/28/2022 15:07:31 Tachycardia 4864741 R00.0 Community acquired pneumonia 410500753 J18.9 Irregular heart beat 361 129080 R00.8 Health Concerns Section Related Observation LastModified by Organization Detai ls LastModified Time None Recorded Concern Status LastModified by Organization Details LastModified Time None Recorded Advance Directives Directive None Recorded Payers Encounter Date Sequence Insurance Name Policy Number Policy Burdick Covered Member ID Burdick Member ID Guarantor Name 05/27/2022 1 [place] [employer] Hillary Pena [place] [id number] [place] 05/27/2022 2 CHRISTOPHER (CHRISTOPHER) Hillary [place] [id number] Hillary [place] Notes Date Note Type Note Provider Name [...] note she recently moved up here from [place] to move into an [employer]. She is not a great historian. She gives me a med list with only a few medicines however she has pill packs from [place] that are totally different medicines that her [...] sxs today. SAMSON Hadley [address], [place], [address], [place] [facility] 05/27/2022 10:31:24 OBGyn Episode No OBEpisode recorded.
--- OUTSIDE RECORDS SUMMARY | 2024-10-26 05:39 | XMS_ITS | Data Portability ---
Author Organization [facility] [employer] [facility], Main Office Address [address] [facility] [place] [address] Care Team Providers Care Unit Secy Name Role Phone MARCIO DONG 3RD FLOOR OTHER Assessment Encounter Date Assessment Date Assessment LastModified by Organization Details LastModified Time 07/01/2024 07/01/2024 labs 06/20:Na 139-K 3.4-Bun 18-cr [...] Address Organization Details Recorded Time Recurrent falls 173830615 Active 2022 JUAN MANUEL MORALES NP [address], [place], [address], [facility] [employer] 3 11:13:43 Osteoarthr itis 664044349 Active 2022 JUAN MANUEL MORALES NP [address], [address], [place], [address], [facility] 3 11:13:48 Chronic obstructiv e pulmonary disease 45363910 Active 2022 JUAN MANUEL MORALES NP [address], [address], [place], [address], [facility] 3 11:13:52 Gastroesop hageal reflux disease without esophagiti s 931991813 Active 2022 JUAN MANUEL MORALES NP [address], [address], [place], [place], [address], [facility] 3 11:13:58 Congestive heart failure 34005064 Active 2022 JUAN MANUEL MORALES NP [address], [address], [place], [address], [facility] 3 11:14:03 Atrial fibrillati on 56782199 Active 2022 JUAN MANUEL MORALES NP [address], [address], [place], [address], [facility] 3 11:14:08 Hematoma of right thigh 225715208199 06306 Active 2022 JUAN MANUEL MORALES NP [address], [address], [place], [address], [facility] 3 11:14:21 Essential hypertensi on 04642661 Active 2022 JUAN MANUEL MORALES NP [address], [address], [place], [address], [facility] 3 11:40:46 Hyperlipid emia 95240580 Active 2022 JUAN MANUEL MORALES NP [address], [address], [place], [address], [facility] 3 11:41:07 Mixed anxiety and depressive disorder 667814443 Active 2022 JUAN MANUEL MORALES NP [address], [address], [place], [address], [facility] 3 11:41:48 Impaired cognition 934779086 Active 2022 Sandra Morrison MD [address], [address], [place], [address], [facility] 3 01:04:56 Overactive urinary bladder 856873193 Active 2022 Sandra Morrison MD [address], [address], [place], [address], [facility] 3 01:13:05 Dry eyes 923675999 Active 2022 Sandra Morrison MD [address], [address], [place], [address], [facility] 3 01:14:09 Hematoma 318560920 Active 2022 left buttock JUAN MANUEL MORALES NP [address] [facility], [address], [place], [address], [facility] 3 13:03:34 Leukocytos is 008761706 Active 2023 JUAN MANUEL MORALES NP [address], [address], [place], [address], [facility] 4 12:21:55 Restless legs 79995386 Active 2023 Sandra Morrison MD [address], [address], [place], [address], [facility] 4 18:41:39 Mixed urinary incontinen ce 256696576 Active 2023 Sandra Morrison MD [address], [address], [place], [address], [facility] 4 18:42:46 Bacterial conjunctiv itis 630815633 Active 2023 REGI COLÓN [address], [address], [place], [address], [facility] 4 17:01:03 Thrombocyt osis 2602294 Active 2024 Abhi Erickson MD [address], [address], [place], [address], [facility] 5 13:01:15 Notes:Some problems listed i n Document: #[id number] could not be added to this patient's [...] Avai lable Vitals Date Recorded Body height Provider Name an d Address Organization Details Last Updated DateTime 07/04/2024 167.64 cm REGI COLÓN [address] [facility] [address], [place], [address], [employer] 07/04/2024 12:29:27 Date Recorded Body height Heart rate Respiratory rate Body temperature Oxygen saturation Oxygen saturation in Arterial blood by Pulse oximetry Systolic blood pressure Diastolic blood pressure Provider Name and Address Organization Details Last Updated DateTime 167.64 cm 72 /min 18 /min 97.7 [degF] 96 % 96 % 120 mm[Hg] 70 mm[Hg] REGI COLÓN [address] [facility], [facility] [address], [place], [address], [employer] 5 09:37:30 Date Recorded Body height Systolic blood pressure Diastolic blood pressure Provider Name and Address Organization Details Last Updated DateTime 10/24/2024 167.64 cm 140 mm[Hg] 80 mm[Hg] Abhi Erickson MD [address] [facility], [facility] [address], [place], [address], [employer] 10/24/2024 12:57:01 Social History Question Answer Notes LastModified by Organizat ion Details LastModified Time Tobacco Smoking Status Former Smoker JUAN MANUEL MORALES NP [address] [facility] [address], [place], [address], [employer] 08/08/2022 11:11:20 Do You Have An Advance Directive? Yes Information not available 08/11/2022 What Is Your Level Of Alcohol Consumption? None Information not available 08/08/2022 What Is Your Code Status? Full Code Information not available 08/11/2022 Where [facility], Previously Lived Alone, No Stairs Information not available 05/15/2023 Legal Guardian? No Informati on not available 08/12/2022 Do You Have A Medical Power Of Addictions Recovery Specialist? Yes Information not available 08/12/2022 What Was [...] PF 05/22/2022 completed Maryam hernandez [place] - [facility] 07/30/2023 12:41:28 Past Encounters Encounter ID Performer Location Encounter Start Date Encounter Closed Date Diagnosis/Indication Diagnosis SNOMED-CT Code Diagnosis ICD10 Code Diagnosis Note [id number] JUAN MANUEL MORALES NP [facility] [address] [facility] [place] [address] 08/08/2022 09:43:58 08/12/2022 10:33:59 Recurrent falls 701630185 R29.6 PT OT eval and treatfall precaution sfrequent safety checks Hematoma o f right thigh 9177351959 7470397 S70.11XA change dressing per ordersmoni tor for increased swellingav oid further falls Atrial fibrillation 4943 6004 I48.91 amiodarone 200 mg dailyeiliq uis 5 mg bidbisopro lol 2.5 mg daily Chronic ob structive pulmonary disease 31786214 J44.9 albuterol inhaler q4hr prnadvair 100/25 daily Congestive heart failure 80423674 I50.9 lasix 20 mg dailylosar miller 25 mg daily Osteoarthritis 798792855 M19.90 cholecalci ferol 2000 dailyrisen dronate 35 weekly Gastroesop hageal reflux disease without esophagitis 362441371 K21.9 CaCarb 500 bidprotoni x 40 mg daily Essential hypertension 23983451 I10 amlodipine 5 mg dailycloni dine 0.1 mg q12 hr Hyperlipidemia 31363176 E78.5 atorvastat in 40 mg daily Mixed anxi ety and depressive disorder 621162202 F41.8 bupropion er 150 mg dailytrazo done 100 mg hs TONY ALMARAZ IKER [address] [place] [address] 08/11/2022 14:11:22 08/13/2022 13:57:19 Hematoma of right thigh 9364354459 0315765 S70.11XA change dressing per [facility] for increased swellingav oid further falls Congestive heart failure 96837209 I50.9 lasix 20 mg dailylosar miller 25 mg daily [id number] [facility] [address] [place] [address] 08/12/2022 17:25:40 08/18/2022 16:13:47 Hematoma of right thigh 4211303498 9469921 S70.11XD With minimal drainage from drains.Lik bruno will get removed at appt tomorrow.M onitor thigh for healing.Mo nitor CBC. Congestive heart failure 64898105 I50.22 Appears euvolemic. Continue bisoprolol 2.5 mg qd, lasix 20 mg qd and losartan 25 mg qd.Monitor resp. status, fluid status, wts and labs. Recurrent falls 42375690 2 R29.6 Very deconditio demetrius.Needs PT/OT for strengthen ing, balance, gait training, safety and function.C ontinue fall precaution s.Monitor for safety. Atrial fibrillation 4943 6004 I48.0 Rate in good control on meds as above and amiodarone 200 mg qd.Continu e eliquis 5 mg BID for AC.Monitor HR and bleeding risk. Chronic ob structive pulmonary disease 04385620 J43.8 At baseline.C ontinue Advair 100/25 mcg BID and albuterol MDI 2 puffs q 4 hrs prn.Monito r resp. status. Gastroesop hageal reflux disease without esophagitis 491027354 K21.9 No current sxs.Contin ue pantoprazo le 40 mg qd.Monitor sxs. Essential hypertension 97727613 I10 Systolic has been high periodical ly, likely due to pain.No change in meds for now.Contin ue meds as above and amlodipine 5 mg qd and clonidine 0.1 mg BID.Monito r BP and labs. Hyperlipidemia 32477465 E78.49 Continue atorvastat in 40 mg qd.Monitor labs as outpt. Mixed anxi ety and depressive disorder 005125445 F41.8 Mood ok tonight.Co ntinue bupropion ER 150 mg qd and trazodone 100 mg qhsMonitor mood.Psych consult prn. Osteoporosis 00858674 M8 1.0 Continue cholecalci ferol 2000 IU qd, calcium 500 mg BID, and risedronat e 35 mg weeklyMoni tor as outpt. [id number] TONY ALMARAZ [address] [place] [address] 08/14/2022 11:52:29 08/18/2022 16:23:58 Chronic obstructive pulmonary disease 89582063 J44.9 albuterol inhaler q4hr prnadvair 100/25 daily Congestive heart failure 12614499 I50.9 lasix 20 mg dailylosar miller 25 mg daily [id number] TONY ALMARAZ [address] [place] [address] 08/20/2022 13:24:34 08/22/2022 13:09:35 Chronic obstructive pulmonary disease 08957205 J43.8 albuterol inhaler q4hr prnadvair 100/25 daily Mixed anxi ety and depressive disorder 035801142 F41.8 bupropion er 150 mg dailytrazo done 100 mg hsmonitor and chart any changes in mood or behaviorsp sych prn [id number] JUAN MANUEL TONY MORALES MARCIO DONG [address] [place] [address] 08/27/2022 10:50:59 09/02/2022 10:27:22 Hematoma of right thigh 3629920811 1724763 S70.11XD change dressing per ordersmoni tor for increased swellingav oid further fallsWBAT Chronic ob structive pulmonary disease 26017920 J43.8 albuterol inhaler q4hr prnadvair 100/25 daily Recurrent falls 17223657 2 R29.6 PT OT eval and treatfall precaution sfrequent safety checks [id number] JUAN MANUEL MORALES NP [address] [address] 09/03/2022 10:52:54 09/05/2022 13:45:58 Chronic obstructive pulmonary disease 65770839 J43.8 albuterol inhaler q4hr prnadvair 100/25 daily Recurrent falls 22828310 2 R29.6 PT OT eval and treatfall precaution sfrequent safety checks [id number] JUAN MANUEL MORALES NP [facility] [address] [place] [address] 09/05/2022 10:51:26 09/09/2022 07:59:39 Recurrent falls 700051103 R29.6 PT OT eval and treatfall precaution sfrequent safety checks Hematoma o f right thigh 6989520524 8776172 S70.11XA change dressing per ordersmoni tor for increased swellingav oid further falls Atrial fibrillation 4943 6004 I48.91 amiodarone 200 mg dailyeiliq uis 5 mg bidbisopro lol 2.5 mg daily Chronic ob structive pulmonary disease 08671087 J44.9 albuterol inhaler q4hr prnadvair 100/25 daily Congestive heart failure 58227971 I50.9 lasix 20 mg dailylosar miller 25 mg daily Osteoarthritis 762465694 M19.90 cholecalci ferol 2000 dailyrisen dronate 35 weekly Gastroesop hageal reflux disease without esophagitis 690633884 K21.9 CaCarb 500 bidprotoni x 40 mg daily Essential hypertension 03148705 I10 amlodipine 5 mg dailycloni dine 0.1 mg q12 hr Hyperlipidemia 74398237 E78.5 atorvastat in 40 mg daily Mixed anxi ety and depressive disorder 152268976 F41.8 bupropion er 150 mg dailytrazo done 100 mg hs [id number] Sandra Morrison MD [address] [address] 10/07/2022 18:29:02 10/10/2022 15:21:01 Abrasion and/or friction burn of back without infection 69256090 S30.810A With open abrasion.W ill use local care and protection with dressings and monitor sxs. fall W18.39XA Pt. reminded to call for help when she wants to get up.Continu es to need PT/OT for strengthen ing, balance, gait training, safety and function.C ontinue fall precaution s.Monitor for safety. Essential hypertension 45686686 I10 Systolic was very high this AM, not rechecked since fall. Overall good recently.C ontinue bisoprolol 2.5 mg qd, lasix 20 mg qd, losartan 25 mg qd. amlodipine 5 mg qd and clonidine 0.1 mg BID.Monito r BP and labs. [id number] Sandra Morrison MD [address] [address] 10/09/2022 13:55:48 10/14/2022 11:00:12 Abrasion and/or friction burn of back without infection 26333151 S30.810A Abrasion healing.Co ntinue local care and protection with dressings and monitor sxs. fall W18.39XA Fall 2 days ago.Contin ues to need PT/OT for strengthen ing, balance, gait training, safety and function.C ontinue fall precaution s.Monitor for safety. Essential hypertension 01577236 I10 Continues with intermitte nt elevated SBP, [...] and labs. Hematoma o f right thigh 0989274190 8772499 S70.11XD Healed.CBC stable. Congestive heart failure 88388929 I50.22 Continues to be euvolemic. Continue bisoprolol 2.5 mg qd, lasix 20 mg qd and losartan 25 mg qd.Monitor resp. status, fluid status, wts and labs. Atrial fibrillation 4943 6004 I48.0 Rate remains in good control on meds as above and amiodarone 200 mg qd.Continu e eliquis 5 mg BID for AC.Monitor HR and bleeding risk. Chronic ob structive pulmonary disease 57979964 J43.8 Continues at baseline.C ontinue Advair 100/25 mcg BID and albuterol MDI 2 puffs q 4 hrs prn.Monito r resp. status. Osteoporosis 67601745 M8 1.0 Continue cholecalci ferol 2000 IU qd, calcium 500 mg BID, and risedronat e 35 mg weeklyMoni tor as outpt. Gastroesop hageal reflux disease without esophagitis 747455112 K21.9 No current sxs.Contin ue pantoprazo le 40 mg qd.Monitor sxs. Hyperlipidemia 91708653 E78.49 Continue atorvastat in 40 mg qd.Monitor labs as outpt. Mixed anxi ety and depressive disorder 016557608 F41.8 Mood ok tonight.Co ntinue bupropion ER 150 mg qd, Buspar 5 mg qd, and trazodone 100 mg qhsMonitor mood.Psych consult prn. Impaired cognition 89815 6002 R41.89 Oriented today, but with frequent episodes of confusion. Continue supportive care, expect decline.HC P invokedMon itor mood and behaviors. Psych consult prn. Overactive urinary bladder 838006287 N32.81 Per pt. has been on Gemtesa in the past, would like to restart.Ge mtesa 75 mg qd.Monitor urinary function. Restless legs 65443534 G 25.81 With increased sxs of RLS.Will start requip 0.25 mg qhs.Monito r sxs. Dry eyes 098571437 H04.1 23 Will start natural tears q 2 hrs prn, may leave at bedside.Mo nitor sxs. [id number] JUAN MANUEL MORALES, TONY DONG [address] [place] [address] [place] [address] 10/13/2022 12:47:26 10/15/2022 12:27:09 Hematoma 566143393 M79.81 sent to ED for further eval as it is expanding [id number] JUAN MANUEL MORALES NP MARCIO DONG [address] [place] [address] [place] [address] 10/17/2022 10:23:03 10/22/2022 16:06:33 Hematoma 275011819 M79.81 oxycodone 2.5 mg q6hr prn for 5 daysmonito r for healibng Recurrent falls 68812986 2 R29.6 PT OT eval and treatfall precaution sfrequent safety checks Hematoma o f right thigh 9203405969 6453034 S70.11XA resolvedav oid further falls Atrial fibrillation 4943 6004 I48.91 amiodarone 200 mg dailyeiliq uis 5 mg bidbisopro lol 2.5 mg daily Chronic ob structive pulmonary disease 68664526 J44.9 albuterol inhaler q4hr prnadvair 100/25 daily Congestive heart failure 78238655 I50.9 lasix 20 mg dailylosar miller 25 mg daily Osteoarthritis 624215328 M19.90 cholecalci ferol 2000 dailyrisen dronate 35 weekly Gastroesop hageal reflux disease without esophagitis 799366876 K21.9 CaCarb 500 bidprotoni x 40 mg daily Essential hypertension 94985814 I10 amlodipine 5 mg dailycloni dine 0.1 mg q12 hr Hyperlipidemia 56557401 E78.5 atorvastat in 40 mg daily Mixed anxi ety and depressive disorder 422909572 F41.8 bupropion er 150 mg dailybuspa r 5 mg dailytrazo done 100 mg hs Overactive urinary bladder 746353034 N32.81 Gemtesa 75 mg qd.Monitor urinary function. [id number] JUAN MANUEL MORALES NP [facility] [address] [place] [address] [place] [address] 10/20/2022 12:38:53 10/22/2022 16:25:33 Hematoma 958568736 M79.81 oxycodone 2.5 mg q6hr prn for 5 daysmonito r for healing Recurrent falls 56889187 2 R29.6 PT OT eval and treatfall precaution sfrequent safety checks [id number] JUAN MANUEL MORALES NP [address] [address] 10/24/2022 10:45:27 10/28/2022 12:44:55 Hematoma 025350347 M79.81 oxycodone 2.5 mg q6hr prn for 5 daysmonito r for healing Impaired cognition 47191 6002 R41.89 Oriented intermitte ntly, but with frequent episodes of confusion. Continue supportive care, expect decline.HC P invokedMon itor mood and behaviors. Psych consult prn. [id number] JUAN MANUEL MORALES NP [address] [address] 10/29/2022 13:57:22 10/31/2022 15:54:37 Hematoma 717653806 M79.81 monitor for healing Recurrent falls 49631613 2 R29.6 PT OT eval and treatfall precaution sfrequent safety checks Hematoma o f right thigh 0405289481 9284244 S70.11XA resolvedav oid further falls Atrial fibrillation 4943 6004 I48.91 amiodarone 200 mg dailyeiliq uis 5 mg bidbisopro lol 2.5 mg daily Chronic ob structive pulmonary disease 79158303 J44.9 albuterol inhaler q4hr prnadvair 100/25 daily Congestive heart failure 13184592 I50.9 lasix 20 mg dailylosar miller 25 mg daily Osteoarthritis 640392938 M19.90 cholecalci ferol 2000 dailyrisen dronate 35 weekly Gastroesop hageal reflux disease without esophagitis 916092347 K21.9 CaCarb 500 bidprotoni x 40 mg daily Essential hypertension 06501862 I10 amlodipine 5 mg dailycloni dine 0.1 mg q12 hr Hyperlipidemia 07223413 E78.5 atorvastat in 40 mg daily Mixed anxi ety and depressive disorder 574933714 F41.8 bupropion er 150 mg dailybuspa r 5 mg dailytrazo done 100 mg hs Overactive urinary bladder 417093364 N32.81 Gemtesa 75 mg qd.Monitor urinary function. [id number] Jenni Kwong MD [address] [address] 01/28/2023 07:59:08 01/30/2023 15:30:48 Impaired cognition 773201423 R41.89 will monitor and support as neededI did not feel that I could invoke patient's HCP proxy today as she was quite appropriat e in her answers to my questions with even some insight. Chronic ob structive pulmonary disease 88992285 J41.0 Advair 250-50: one puff [id number] rol HFA: 2 puffs q4h prnwill monitor Atrial fibrillation 4943 6004 I48.0 apixaban 5 mg bidbisopro lol 2.5 mg dailyamiod arone 200 mg dailywill monitor Essential hypertension 16263888 I10 bisoprolol 2.5 mg dailyamlod ipine 5 mg dailyfuros emide 20 mg dailylosar miller 25 mg dailycloni dine 0.1 mg m78yccuo monitor Mixed anxi ety and depressive disorder 364158184 F41.8 buspirone 5 mg tidtrazodo ne 100 mg at hsbupropri on 100 mg dailyescit alopram 10 mg dailyhydro xyzine 10 mg q8h prn anxietywil l monitor Overactive urinary bladder 156916306 N32.81 vibegron 75 mg dailywill monitor Restless legs 05158858 G 25.81 ropinirole 0.25 mg dailywill monitor Gastroesop hageal reflux disease without esophagitis 781250854 K21.9 pantoprazo le 40 mg dailywill monitor Primary osteoporosis 276 628760 M81.0 risendrona te 25 mg weeklywill monitor Chronic sy stolic heart failure 786447993 I50.22 losartan 25 mg dailyfuros emide 20 mg dailybisop rolol 2.5 mg dailywill monitor [id number] TONY ALMARAZ [address] [facility] [place] [address] 03/20/2023 16:32:09 03/27/2023 09:38:51 Overactive urinary bladder 505304333 N32.81 urology consult prnMonitor urinary function. Impaired cognition 63074 6002 R41.89 will monitor and support as needed Chronic ob structive pulmonary disease 70626402 J41.0 Advair 250-50: one puff [id number] rol HFA: 2 puffs q4h prnwill monitor Atrial fibrillation 4943 6004 I48.0 apixaban 5 mg bidbisopro lol 2.5 mg dailyamiod arone 200 mg dailywill monitor Essential hypertension 58840940 I10 bisoprolol 2.5 mg dailyamlod ipine 5 mg dailyfuros emide 20 mg dailylosar miller 25 mg dailycloni dine 0.1 mg [id number] monitor Mixed anxi ety and depressive disorder 663246575 F41.8 buspirone 5 mg tidtrazodo ne 100 mg at hsbupropri on 100 mg dailyescit alopram 10 mg dailyhydro xyzine 10 mg q8h prn anxietywil l monitor Restless legs 39458367 G 25.81 ropinirole 0.25 mg dailywill monitor Gastroesop hageal reflux disease without esophagitis 530750882 K21.9 pantoprazo le 40 mg dailywill monitor Primary osteoporosis 276 550102 M81.0 risendrona te 25 mg weeklywill monitor Chronic sy stolic heart failure 859442007 I50.22 losartan 25 mg dailyfuros emide 20 mg dailybisop rolol 2.5 mg dailywill monitor Recurrent falls 98183762 2 R29.6 PT OT eval and treatfall precaution sfrequent safety checks [id number] Sandra Morrison MD [address] [address] 05/15/2023 17:56:32 05/19/2023 11:07:46 Fall 1279485 R29.6 Hx of fallsConti nue fall precaution s.Monitor for safety. Essential hypertension 87346530 I10 Good control.Co ntinue bisoprolol 2.5 mg qd, lasix 20 mg qd, losartan 25 mg qd. amlodipine 5 mg qd and clonidine 0.1 mg BID.Monito r BP and labs. Hematoma o f right thigh 4741762847 9992226 S70.11XD Healed.CBC stable. Impaired cognition 62729 6002 R41.89 Mild confusion today, but fairly oriented.C ontinue supportive care, expect decline.HC P invokedMon itor mood and behaviors. Psych consult prn. Congestive heart failure 46193555 I50.22 Continues to be euvolemic. Continue bisoprolol 2.5 mg qd, lasix 20 mg qd and losartan 25 mg qd.Monitor resp. status, fluid status, wts and labs. Atrial fibrillation 4943 6004 I48.0 Rate remains in good control on meds as above and amiodarone 200 mg qd.Continu e eliquis 5 mg BID for AC.Monitor HR and bleeding risk. Chronic ob structive pulmonary disease 64430821 J43.8 Continues at baseline.C ontinue Advair 100/25 mcg BID and albuterol MDI 2 puffs q 4 hrs prn.Monito r resp. status. Osteoporosis 24824737 M8 1.0 Continue cholecalci ferol 2000 IU qd, calcium 500 mg BID, and risedronat e 35 mg weeklyMoni tor as outpt. Gastroesop hageal reflux disease without esophagitis 245554313 K21.9 No current sxs.Contin ue pantoprazo le 40 mg qd.Monitor sxs. Hyperlipidemia 06683879 E78.49 Continue atorvastat in 40 mg qd.Monitor labs as outpt. Mixed anxi ety and depressive disorder 594250486 F41.8 Mood ok tonight.Co ntinue bupropion ER 100 mg qd, Buspar 5 mg TID, clonidine 0.1 m BID, and trazodone 100 mg qhsMonitor mood.Psych consult prn. Restless legs 80195494 G 25.81 Continue requip 0.25 mg qhs.Monito r sxs. Mixed urin laura incontinence 122457219 N39.46 Continue estring 2 mg q 3 months and estrace cream 2 gms 3x/wkMonit or urinary function.F /U with uro prn. Visual hallucinations 64 067789 R44.1 Psych consult for visual and auditory hallucinat ions.[place] pt. [id number] TONY ALMARAZ [address] [place] [address] rd [place] [address] 07/10/2023 12:52:00 07/21/2023 11:22:40 Overactive urinary bladder 041253878 N32.81 urology consult prnMonitor urinary function.d -mannose 500 mg daily uti preventati ve Impaired cognition 25905 6002 R41.89 will monitor and support as needed Chronic ob structive pulmonary disease 54093601 J41.0 Advair 250-50: one puff [id number] rol HFA: 2 puffs q4h prnwill monitor Atrial fibrillation 4943 6004 I48.0 apixaban 5 mg bidbisopro lol 2.5 mg dailyamiod arone 200 mg dailywill monitor Essential hypertension 25227528 I10 bisoprolol 2.5 mg dailyamlod ipine 5 mg dailyfuros emide 20 mg dailylosar miller 25 mg dailycloni dine 0.1 mg [id number] monitor Mixed anxi ety and depressive disorder 691795627 F41.8 buspirone 5 mg tidtrazodo ne 100 mg at hsbupropri on 100 mg dailyescit alopram 10 mg dailyhydro xyzine 10 mg q8h prn anxietywil l monitor Restless legs 74635295 G 25.81 ropinirole 0.25 mg dailywill monitor Gastroesop hageal reflux disease without esophagitis 202370967 K21.9 pantoprazo le 40 mg dailywill monitor Primary osteoporosis 276 516527 M81.0 risendrona te 25 mg weeklywill monitor Chronic sy stolic heart failure 262127259 I50.22 losartan 25 mg dailyfuros emide 20 mg dailybisop rolol 2.5 mg dailywill monitor Recurrent falls 79620425 2 R29.6 PT OT eval and treatfall precaution sfrequent safety checks [id number] JUAN MANUEL MORALES NP [address] [address] 07/15/2023 12:09:17 07/21/2023 14:31:17 Leukocytosis 004948657 D72.829 UA C/Scxr [id number] Martina Oliva [address] [address] 08/28/2023 10:48:09 10/26/2023 15:56:34 Atrial fibrillation 18663664 I48.0 chronic, stable. RCcontinue eliquiscon tinue norvasccon tinue amiodarone monitor HR Chronic ob structive pulmonary disease 79604054 J41.0 chronic stablecont inue inhalersmo nitor for changes in respirator y status Congestive heart failure 13788217 I50.22 chronic, stablecont inue lasix 20mg dailymonit or BMP Essential hypertension 94066637 I10 chronic stablecont inue norvasc and losartanal so on lasix Hyperlipidemia 86557828 E78.49 continue atorvastat inmonitor lipids annually [id number] Jenni Kwong MD [address] [address] 09/09/2023 08:10:55 09/15/2023 10:16:26 Impaired cognition 607285660 R41.89 will monitor and support as needed Mixed anxi ety and depressive disorder 433296094 F41.8 buspirone 5 mg tidtrazodo ne 100 mg at hsbupropri on 100 mg dailyescit alopram 10 mg dailyhydro xyzine 10 mg q8h prn anxietywil l monitor Atrial fibrillation 4943 6004 I48.0 apixaban 5 mg bidbisopro lol 2.5 mg dailyamiod arone 200 mg dailywill monitor Essential hypertension 33249202 I10 bisoprolol 2.5 mg dailyamlod ipine 5 mg dailyfuros emide 20 mg dailylosar miller 25 mg dailycloni dine 0.1 mg a17wznzx monitor Hyperlipidemia 51461137 E78.49 atorvastat in 40 mg dailywill monitor Chronic ob structive pulmonary disease 25516422 J41.0 Advair 250-50: one puff q69wzecepl rol HFA: 2 puffs q4h prnwill monitor Gastroesop hageal reflux disease without esophagitis 966200474 K21.9 pantoprazo le 40 mg dailywill monitor Restless legs 83256653 G 25.81 ropinirole 0.25 mg dailywill monitor Cobalamin deficiency 190 358264 E53.8 B12 500 mcg dailywill monitor [id number] [facility] [address] [address] 09/21/2023 11:12:35 09/23/2023 09:57:55 Acute dermatitis 38583850 L30.9 left upper facial near left eye [...] provide new make up brushes Impaired cognition 14651 6002 R41.89 will monitor and support as needed [id number] [facility] [address] [address] 09/22/2023 15:18:31 09/24/2023 12:07:21 Impaired cognition 571730279 R41.89 will monitor and support as needed Pain of le ft knee region 2614264507 74405 M25.562 see hpiwill scheduled 975 mg tylenol TIDxray left knee 2 viewsconsi christiano PT/OT eval if imaging is negative for fx. [id number] [facility] [address] [address] 10/13/2023 18:47:09 10/15/2023 17:16:34 Cough 55419845 R05.9 10/11: started mucinex 600 mg q [...] dayincreas e oral hydrationm onitor resp status [id number] [facility] [address] [address] 10/29/2023 11:14:47 11/03/2023 12:16:03 Impaired cognition 487746646 R41.89 Continue supportive care, expect decline.HC P invokedMon itor mood and behaviors. Psych consult prn. Essential hypertension 65323293 I10 BP has been controlled with current medicatios .Continue bisoprolol 2.5 mg qd, lasix 20 mg qd, losartan 25 mg qd. amlodipine 5 mg qd and clonidine 0.1 mg BID.Monito r BP and labs. Congestive heart failure 96933849 I50.22 euvolemic. Continue bisoprolol 2.5 mg qd, lasix 20 mg qd and losartan 25 mg qd.Monitor resp. status, fluid status, wts and labs. Atrial fibrillation 4943 6004 I48.0 HR controlled continue amiodarone 200 mg qd.Continu e eliquis 5 mg BID for AC.Monitor HR and bleeding risk. Chronic ob structive pulmonary disease 97563713 J43.8 Continues at baseline.C ontinue Advair 100/25 mcg BID and albuterol MDI 2 puffs q 4 hrs prn.Monito r resp. status. Osteoporosis 31507166 M8 1.0 Continue cholecalci ferol 2000 IU qd, calcium 500 mg BID, and risedronat e 35 mg weeklyMoni tor as outpt. Gastroesop hageal reflux disease without esophagitis 640836000 K21.9 No current sxs.Contin ue pantoprazo le 40 mg qd.Monitor sxs. Hyperlipidemia 61494055 E78.49 Continue atorvastat in 40 mg qd.Monitor labs as outpt. Mixed anxi ety and depressive disorder 994563434 F41.8 Continue bupropion ER 100 mg qd, Buspar 5 mg TID, clonidine 0.1 m BID, and trazodone 100 mg qhs,lexapr o 10 mg daily and hydroxyzin e 10 mg qdMonitor mood.Psych consult prn. Restless legs 83191224 G 25.81 Continue requip 0.25 mg qhs.Monito r sxs. Mixed urin laura incontinence 781227648 N39.46 Continue estring 2 mg q 3 monthsMoni tor urinary function.F /U with uro prn. Tear of skin 849401065 T 14.8XXA LLE flap tear, approximat edcontinue to monitor healing. [id number] [facility] IKER [address] [place] [address] [place] [address] 11/10/2023 12:24:35 11/23/2023 12:50:14 Shoulder pain 07689780 M25.519 right shoulder pain+ discomfort with abduction, suspect OAnursing to give now dose tylenol and continue prnPT/OT eval and treatwill monitor. [id number] [facility] MARCIO DONG [address] [place] [address] [place] [address] 11/25/2023 11:56:55 11/27/2023 12:02:47 Candidiasis of vagina 73376586 B37.31 vaginal redness appears yeastPatie nt has no discomfort start diflucan 150 mg Q72 for 3 dosesPt is incontinen t, nursing encourage to check for incontinen t episode and change Q2.keep skin clean and drymonitor for resolution [id number] Sandra Morrison MD [facility] [address] [place] [address] [place] [address] 01/15/2024 21:46:22 02/02/2024 07:55:44 Impaired cognition 555752518 R41.89 Continues at baseline.C ontinue escitalopr am 10 mg qd, bupropion ER 100 mg qd, Buspar 5 mg TID, clonidine 0.1 m BID, trazodone 100 mg qhs, and hydroxyzin e 10 mg qd.Continu e supportive care, expect decline.HC P invokedMon itor mood and behaviors. Psych follows. Visual hallucinations 64 158862 R44.1 Psych follows, no mention of this in recent notes.Aida tor Essential hypertension 71190785 I10 Continues in good control.Co ntinue bisoprolol 2.5 mg qd, lasix 20 mg qd, losartan 25 mg qd. amlodipine 5 mg qd and clonidine 0.1 mg BID.Monito r BP and labs. Congestive heart failure 68218408 I50.22 Continues to be euvolemic. Continue bisoprolol 2.5 mg qd, lasix 20 mg qd and losartan 25 mg qd.Monitor resp. status, fluid status, wts and labs. Atrial fibrillation 4943 6004 I48.0 Rate in good control on meds as above and amiodarone 200 mg qd.Continu e eliquis 5 mg BID for AC.Monitor HR and bleeding risk. Chronic ob structive pulmonary disease 77911943 J43.8 Continues at baseline.C ontinue Advair 100/25 mcg BID and albuterol MDI 2 puffs q 4 hrs prn.Mucine x 600 mg BID added for cough in 10/2023.Mon itor resp. status. Osteoporosis 68800077 M8 1.0 Continue cholecalci ferol 2000 IU qd, calcium 500 mg BID, and risedronat e 35 mg weeklyMoni tor as outpt. Gastroesop hageal reflux disease without esophagitis 579633286 K21.9 No current sxs.Contin ue pantoprazo le 40 mg qd.Monitor sxs. Hyperlipidemia 78918168 E78.49 Continue atorvastat in 40 mg qd.Monitor labs as outpt. Mixed anxi ety and depressive disorder 940908381 F41.8 As above. Restless legs 50094251 G 25.81 She mentions this tonight.Co ntinue requip 0.25 mg qhs.Consid er increase to 0.5 mg qhs.Monito r sxs. Mixed urin laura incontinence 198415710 N39.46 Continue estring 2 mg q 3 months.Mon itor urinary function.F /U with uro prn. Cough 38180927 R05.9 Back to baseline.M onitor [id number] [facility] [address] [address] 02/24/2024 09:53:07 02/25/2024 10:07:37 Bacterial conjunctivitis 464666480 H10.9 see hpibilater al erythema, dry yellowish discharge noted on lashes and corners or eyesstart ofloxacin 0.3 % 2 gtts QID for 5 daysmonito r for resolution patient encouraged to avoid rubbing eyes, apply cool compress for comfort. [id number] [facility] [address] [place] [address] 03/02/2024 10:16:42 03/04/2024 10:24:18 Bacterial conjunctivitis 555775059 H10.9 ofloxacin eye gtts completeds clera white, no drainage or discharge, denies didcomfort .bilateral erythema, dry yellowish discharge noted on lashes and corners or eyespatien t encouraged to avoid rubbing eyes, apply cool compress for comfort. Mixed anxi ety and depressive disorder 263317474 F41.8 followed by [facility] seen on 02/28 with recommenda tion for GDR she is currently on 4 psychotrop ic medication 03/02: decrease bupropion ER 100 mg qd to 75 mgcheck EKG for QTcContinu e , Buspar 5 mg TID, clonidine 0.1 m BID, and trazodone 100 mg qhs,lexapr o 10 mg daily and hydroxyzin e 10 mg qdMonitor mood.Psych prn [id number] [facility] [address] [place] [address] 03/07/2024 15:12:42 03/09/2024 09:31:11 Recurrent falls 780888940 R29.6 see hpino acute injuries or reports of discomfort .nursing to continue post fall protocol. [id number] [facility] [address] [place] [address] 03/09/2024 10:14:06 03/15/2024 13:07:32 Impaired cognition 951472391 R41.89 Continue supportive care, expect decline.HC P invokedMon itor mood and behaviors. Psych consult prn. Essential hypertension 47902254 I10 Continue bisoprolol 2.5 mg qd, lasix 20 mg qd, losartan 25 mg qd. amlodipine 5 mg qd and clonidine 0.1 mg BID.Monito r BP and labs. Congestive heart failure 58610911 I50.22 euvolemic. she has been stableCont inue bisoprolol 2.5 mg qd, lasix 20 mg qd and losartan 25 mg qd.Monitor resp. status, fluid status, wts and labs. Atrial fibrillation 4943 6004 I48.0 denies any chest pain or other associated sx,continu e amiodarone 200 mg qd.Continu e eliquis 5 mg BID for AC.Monitor HR and bleeding risk. Chronic ob structive pulmonary disease 28215045 J43.8 Continues at baseline.C ontinue Advair 100/25 mcg BID and albuterol MDI 2 puffs q 4 hrs prn.Monito r resp. status. Osteoporosis 29507867 M8 1.0 Continue cholecalci ferol 2000 IU qd, calcium 500 mg BID, and risedronat e 35 mg weeklyMoni tor as outpt. Gastroesop hageal reflux disease without esophagitis 597005095 K21.9 tolerating a regular diet, no reported GI upsetConti nue pantoprazo le 40 mg qd.Monitor sxs. Hyperlipidemia 02117252 E78.49 Continue atorvastat in 40 mg qd.Monitor labs as outpt. Mixed anxi ety and depressive disorder 387159406 F41.8 Continue bupropion ER 100 mg qd, Buspar 5 mg TID, clonidine 0.1 m BID, and trazodone 100 mg qhs,lexapr o 10 mg daily and hydroxyzin e 10 mg qdMonitor mood.Psych consult prn. Restless legs 94098439 G 25.81 Continue requip 0.25 mg qhs.Monito r sxs. Mixed urin laura incontinence 777107207 N39.46 Continue estring 2 mg q 3 monthsMoni tor urinary function.F /U with uro prn. Bacterial conjunctivitis 016521615 H10.9 resolvedof loxacin eye gtts completeds stacy villalobos, no drainage or discharge, denies discomfort . Recurrent falls 99916702 2 R29.6 s/p fall 03/05no acute injuries or reports of discomfort .nursing to continue post fall protocol. [id number] [facility] [address] [address] 04/04/2024 13:13:21 04/05/2024 13:32:19 Viral conjunctivitis 27913469 B30.9 left eyeleft sclera erythema, lower lid swelling( aggravated by rubbing) with clear drainage.n o itchiness or discomfort start azelastine gtt BID for 14 day.monito r for resolution patient encouraged to avoid rubbing eyes, apply cool compress for comfort. [id number] [facility] [address] [address] 04/07/2024 11:04:20 04/08/2024 12:46:40 Viral conjunctivitis 17197194 B30.9 left eye /stablelef t sclera erythema, lower lid swelling( aggravated by rubbing) with clear drainage.n o itchiness or discomfort start azelastine gtt BID for 14 day.- have not received med from pharmacy-m onitor for resolution patient encouraged to avoid rubbing eyes, apply cool compress for comfort. Acute urin laura tract infection 359113316 N39.0 see hpiwill start bactrim 400mg Q12 for 7 dayadd probiotic BIDencoura ged to have increased water consumptio n to flush out toxins Hypokalemia 37885553 E87 .6 subtle at 3.1will replete with kcl 20 meq times 2 daysmonito r for associated sx (weakness, cramping, twitching) patient to notify nursing staff with sx [id number] [facility] e [address] [place] [address] [place] [address] 04/28/2024 11:26:55 04/29/2024 11:42:54 Impaired cognition 254776116 R41.89 stableCont inue supportive care, expect decline.HC P invokedMon itor mood and behaviors. Psych consult prn. Essential hypertension 12623494 I10 Continue bisoprolol 2.5 mg qd, lasix 20 mg qd, losartan 25 mg qd. amlodipine 5 mg qd and clonidine 0.1 mg BID.Monito r BP and labs. Congestive heart failure 89444542 I50.22 euvolemic. she has been stableCont inue bisoprolol 2.5 mg qd, lasix 20 mg qd and losartan 25 mg qd.Monitor resp. status, fluid status, wts and labs. Atrial fibrillation 4943 6004 I48.0 denies any chest pain or other associated sx,continu e amiodarone 200 mg qd.Continu e eliquis 5 mg BID for AC.Monitor HR and bleeding risk. Chronic ob structive pulmonary disease 45340341 J43.8 Continues at baseline.C ontinue Advair 100/25 mcg BID and albuterol MDI 2 puffs q 4 hrs prn.Monito r resp. status. Osteoporosis 38850249 M8 1.0 Continue cholecalci ferol 2000 IU qd, calcium 500 mg BID, and risedronat e 35 mg weeklyMoni tor as outpt. Gastroesop hageal reflux disease without esophagitis 347068273 K21.9 tolerating a regular diet, no reported GI upsetConti nue pantoprazo le 40 mg qd.Monitor sxs. Hyperlipidemia 08326274 E78.49 Continue atorvastat in 40 mg qd.Monitor labs as outpt. Mixed anxi ety and depressive disorder 255771024 F41.8 Continue bupropion ER 100 mg qd, Buspar 5 mg TID, clonidine 0.1 m BID, and trazodone 100 mg qhs,lexapr o 10 mg daily and hydroxyzin e 10 mg qdMonitor mood.Psych consult prn. Restless legs 45018418 G 25.81 Continue requip 0.25 mg qhs.Monito r sxs. Mixed urin laura incontinence 897009862 N39.46 Continue estring 2 mg q 3 monthsMoni tor urinary function.F /U with uro prn. Acute urin laura tract infection 115721793 N39.0 completed abxencoura ged to have increased water consumptio n to flush out toxins Hypokalemia 45664861 E87 .6 subtle at 3.1will replete with kcl 20 meq times 2 daysmonito r for associated sx (weakness, cramping, twitching) patient to notify nursing staff with sx [id number] [facility] [address] [address] 05/09/2024 11:39:53 05/10/2024 13:50:01 Shoulder pain 64301831 M25.519 see HPInon traumatic right shoulder painGive now dose for tramadol 50 mg then tramadol 50 mg Q6 prnschedul e tylenol 1 g TIDxray 3 viewscan apply ice for pain or heat for comfort [id number] [facility] [address] [address] 05/19/2024 09:40:12 05/23/2024 12:46:45 Shoulder pain 98556655 M25.519 non traumatic right shoulder pain-xray negative for any acute findings.c ontinue tramadol 50 mg Q6 prnschedul e tylenol 1 g TID [id number] [facility] [address] [address] 06/16/2024 08:41:53 06/22/2024 12:46:48 Diplopia 96319862 H53.2 intermitte nt12/4 opthamolog y exam showed esophoria at distance , divergence insufficie ncy can be neurologic al neurology consult recommende d, otherwise follow up in 1 year. Impaired cognition 51517 6002 R41.89 Continue supportive care, expect decline.HC P invokedcon tinue to monitor mood and behaviors with recent med changes Essential hypertension 84450613 I10 Continue bisoprolol 2.5 mg qd, lasix 20 mg qd, losartan 25 mg qd. amlodipine 5 mg qd and clonidine 0.1 mg BID.Monito r BP and labs. Congestive heart failure 71892697 I50.22 euvolemic. she has been stableCont inue [...] bleeding risk. Chronic ob structive pulmonary disease 37687645 J43.8 Continue Advair 100/25 mcg BID and albuterol MDI 2 puffs q 4 hrs prn.Monito r resp. status. Osteoporosis 82785848 M8 1.0 Continue cholecalci ferol 2000 IU qd, calcium 500 mg BID, and risedronat e 35 mg weeklyMoni tor as outpt. Gastroesop hageal reflux disease without esophagitis 649015319 K21.9 tolerating a regular diet, no reported GI upsetpanto prazole discontinu ed due to QTc Hyperlipidemia 14181284 E78.49 Continue atorvastat in 40 mg qd.Monitor labs as outpt. Mixed anxi ety and depressive disorder 963186328 F41.8 nursing reports daily anxiety, currently on [...] in place of hydroxyzin e Restless legs 06731739 G 25.81 Continue requip 0.25 mg qhs.Monito r sxs. Mixed urin laura incontinence 574083207 N39.46 Continue estring 2 mg q 3 monthsMoni tor urinary function.F /U with uro prn. [id number] [facility] [address] [place] [address] 06/20/2024 10:53:20 06/21/2024 14:19:17 Diplopia 63097782 H53.2 intermitte nt12/4 opthamolog y exam showed esophoria at distance , divergence insufficie ncy can be neurologic al neurology consult recommende d, otherwise follow up in 1 year.she will discuss with family Mixed anxi ety and depressive disorder 233357290 F41.8 nursing reports daily anxiety, currently on [...] palpitatio n etc.repeat ekg in 1 week [id number] [facility] [address] [place] [address] 07/01/2024 08:22:16 07/04/2024 15:48:50 Respiratory tract congestion and cough 595276894 R05.9 non productive chest xray complete:T he lung johansen are clear without mass, infiltrate , congestion , or effusion. SARS-CoV-2 952808409 U07 .1 07/01 positive teststart Molnupirav ir 800 mg BID for 5 dayscontin ue supportive therapy with oxygen prnisolati on precaution [id number] SUY[address]AADELSO [address]RE[address] [address] 07/04/2024 09:57:50 07/05/2024 09:55:44 Respiratory tract congestion and cough 351008367 R05.9 no cough appreciate d on exam SARS-CoV-2 086801050 U07 .1 07/01 positive testcopnti nue Molnupirav ir 800 mg BID for 5 dayscontin ue supportive therapy with oxygen prnisolati on precaution [id number] [facility] [address] [place] [address] 10/09/2024 10:55:30 10/13/2024 16:07:53 Mixed anxiety and depressive disorder 060735558 F41.8 stablecont inue escitalopr am, BusPIRone and trazodone Impaired cognition 55925 6002 R41.89 Continue supportive care, expect decline.HC P invokedcon tinue to monitor mood and behaviors with recent med changes Essential hypertension 81742734 I10 stableCont inue bisoprolol 2.5 mg qd, lasix 20 mg qd, losartan 25 mg qd. amlodipine 5 mg qd and clonidine 0.1 mg BID.Monito r BP and labs. Congestive heart failure 48442611 I50.22 euvolemic. stableCont inue bisoprolol 2.5 mg qd, lasix 20 mg qd and losartan 25 mg qd.Monitor resp. status, fluid status, wts and labs. Atrial fibrillation 4943 6004 I48.0 stablerate controlled cont amiodarone to 100 mg qdContinue eliquis 5 mg BID for AC.Monitor HR and bleeding risk. Chronic ob structive pulmonary disease 16649506 J43.8 stableCont inue Advair 100/25 mcg BID and albuterol MDI 2 puffs q 4 hrs prn.Monito r resp. status. Gastroesop hageal reflux disease without esophagitis 952213119 K21.9 stabletole rating a regular diet, no reported GI upsetpanto prazole discontinu ed due to QTc Hyperlipidemia 30283240 E78.49 Continue atorvastat in 40 mg qd.Monitor labs as outpt. [id number] MD MARCIO Ayers [address] [place] [address] [place] [address] 10/12/2024 11:19:17 10/14/2024 08:28:33 Impaired cognition 058518652 R41.89 baseline impaired cognitionH CP invokedmon itor for behaviorsp sych eval prn Pruritic rash 88122753 L 28.2 eschar x 2 present left wristdoes not appear infectedsu rrounding pruritisat arax 25 mg q 8 prnmonitor for effect [id number] MD MARCIO Ayers [address] [place] [address] [place] [address] 10/24/2024 12:55:25 10/24/2024 13:06:13 Thrombocytosis 3584589 D75.839 D75.838 acute thrombocyt osisrepeat stat cbc to recheck plt levelif remains elevated will starthydre a 1000 mg qd and request heme consult Leukocytosis 321690757 D 72.829 see above Impaired cognition 38737 6002 R41.89 baseline impaired cognitionH CP invokedcoo rdinate with HCP as needed for further workup Health Concerns Section Related Observation LastModified by Organization Detai ls LastModified Time None Recorded Concern Status LastModified by Organization Details LastModified Time None Recorded Advance Directives Directive Y: Payers Encounter Date Sequence Insurance Name Policy Number Policy Burdick Covered Member ID Burdick Member ID Guarantor Name 07/01/2024 2 () Hillary Naila [id number] Hillary Naila 07/01/2024 1 MEDICARE [place]: [facility] Hillary A Harris [id number] Hillary Harris 07/04/2024 2 () Hillary Harris [id number] Hillary Naila 07/04/2024 1 [place] Hillary A Harris [id number] Hillary Harris 10/09/2024 2 () Hillary Naila [id number] Hillary Naila 10/09/2024 1 [place] [facility] Hillary A Harris [id number] Hillary Harris 10/12/2024 2 () Hillary Harris [id number] Hillary Harris 10/12/2024 1 [place] [facility] Hillary A Naila [id number] Hillary Naila 10/24/2024 2 () Hillary Harris [id number] Hillary Harris 10/24/2024 1 [place]: [facility] Hillary A Harris [id number] Hillary Harris Notes Date Note Type Note Provider Name and Address Organization Details Recorded Time 07/01/2024 text/html Hillary is a [age] yr old LTC resident seen acute rounding visit per nursing request, on 06/30 nursing reported patient had a low grade temp and congested cough. resp panel and chest xray ordered. past medical history that includes Afib, HTN, COPD,GERD, CHF, depression, cognitive changes,left femur and hematoma. [facility] [address] [facility], [address], [place], [address], [employer] 07/01/2024 12:47:57 07/04/2024 text/html Hillary is a [...] changes,left femur and hematoma. [facility] [address], [address], [place], [address], [employer] 07/04/2024 12:33:28 10/09/2024 text/html Hillary is a [age] yr old LTC resident seen for routine rounding. She has been at her baseline in [facility]. no changes in appetite or elimination, there are no acute nursing concerns. followed by [facility] recently seen 09/05/24, for medication management. medication adjustment over the last 6 months effective. Nursing reports trend of decreased anxiety and agitation. [facility] [address] [facility], [address], [place], [address], [facility] [employer] 10/10/2024 09:47:38 10/12/2024 text/html Patient is a 74 yo female resident asked to eval for MD visit with pruritis left hand. Patient with dementia at baseline, brother in room helps with hx. Patient sitting in wheelchair in [facility]. Abhi Erickson MD [address] [facility], [address], [place], [address], [facility] [employer] 10/12/2024 11:58:18 10/24/2024 text/html Patient is a 74 yo female resident seen for acute rounding. CBC was ordered showing significant elevated of gvs=8666 and mild elevation of WBC. Patient with baseline dementia lying in bed in [facility] Abhi Erickson MD [address] [facility], [address], [place], [address], [facility] [employer] 10/24/2024 13:06:12 OBGyn Episode No OBEpisode recorded.
[2024-10-26 06:02] LABS: Basophils Absolute Auto 0.2 X10*3/uL (0.0-0.2); Basophils Percent Auto 2.4 % (0-2); Eosinophils Absolute Auto 0.4 X10*3/uL (0.0-0.4); Eosinophils Percent Auto 3.9 % (0-4); Hematocrit 39.6 % (37.0-47.0); Hemoglobin 12.1 g/dl (12.0-16.0); Imm Gran Abs Auto 0.07 X10*3/uL (0.00-0.03); Imm Gran Pct Auto 0.8 % (0.0-0.4); Lymphocytes Absolute Auto 2.1 X10*3/uL (1.2-4.9); Lymphocytes Percent Auto 23.2 % (20-40); Mean Corpuscular HGB Conc 30.6 g/dl (31.0-35.0); Mean Corpuscular Hemoglobin 23.4 pg (27.0-33.0); Mean Corpuscular Volume 76.7 fL (80.0-98.0); Mean Platelet Volume 10.9 fL (9.4-12.3); Monocytes Absolute Auto 0.5 X10*3/uL (0.1-1.2); Monocytes Percent Auto 5.9 % (2-11); Neutrophils Absolute Auto 5.8 x10*3/uL (2.0-8.3); Neutrophils Percent Auto 63.8 % (45-73); Red Blood Count 5.16 X10*6/uL (4.20-5.50); Red Cell Distribution Width 19.2 % (11.0-16.0)
[2024-10-26 07:21] LABS: Platelet Count 1017 X10*3/uL (160-400)
== END 2024-10-26 05:36 | disposition home or self-care (01) ==
LOC: HO.MMNH3L 05:35
PROVIDERS: Visit Provider Family Medicine
DX: Z00.00 Encounter for general adult medical examination without abnormal findings (principal); Z13.0 Encounter for screening for diseases of the blood and blood-forming organs and certain disorders involving the immune mechanism
CPT/HCPCS: 36415; 85025

== ENCOUNTER 2024-11-02 05:40 | Outpatient (REF) | payer MEDICARE, SELFPAY ==
[2024-11-02 06:17] LABS: Hematocrit 35.8 % (37.0-47.0); Mean Corpuscular HGB Conc 30.7 g/dl (31.0-35.0); Mean Corpuscular Hemoglobin 23.9 pg (27.0-33.0); Mean Corpuscular Volume 77.7 fL (80.0-98.0); Mean Platelet Volume 10.8 fL (9.4-12.3); Platelet Count 770 X10*3/uL (160-400); Red Blood Count 4.61 X10*6/uL (4.20-5.50); Red Cell Distribution Width 18.6 % (11.0-16.0); White Blood Count 4.8 X10*3/uL (4.8-10.8)
[2024-11-02 08:22] LABS: Band Neutrophils Percent 0 % (3-5); Basophils Percent Manual 1 % (0-2); Eosinophils Absolute Manual 0.1 X10*3/uL (0.0-0.4); Eosinophils Percent Manual 2 % (0-4); Lymphocytes Absolute Manual 1.9 X10*3/uL (1.2-4.9); Lymphocytes Percent Manual 40 % (20-40); Monocytes Absolute Manual 0.1 X10*3/uL (0.1-1.2); Monocytes Percent Manual 2 % (2-11); Myelocytes Percent 1 %; Neutrophils Absolute Manual 2.6 X10*3/uL (2.0-8.3); Neutrophils Percent Manual 54 % (45-73)
[2024-11-02 08:23] LABS: RBC Morphology NOTED
[2024-11-02 08:24] LABS: Acanthocytes 3+ (>5) /OIF; Burr Cells 3+ (>5) /OIF; Hypochromasia 1+ (5-14) /OIF; Large Platelet PRESENT; Microcytosis 1+ (5-14) /OIF; Platelet Estimate INCREASED (NORMAL); Platelet Morphology Comment NOTED; Schistocytes 3+ (>5) /OIF
== END 2024-11-02 05:41 | disposition home or self-care (01) ==
LOC: HO.MMNH3L 05:40
PROVIDERS: Visit Provider Family Medicine
DX: I10 Essential (primary) hypertension (principal)
CPT/HCPCS: 36415; 85007; 85025; 85027

== ENCOUNTER 2024-11-14 06:08 | Outpatient (REF) | payer MEDICARE, SELFPAY ==
--- OUTSIDE RECORDS SUMMARY | 2024-11-14 06:12 | XMS_ITS | Clinical Summary ---
Author Organization [facility] Address [address] [facility] [address] [place] [address] Phone Care Team Providers Care Machine Milker Name Role Phone Unavailable Primary Care Provider [...] complete this topic Insurance Medicare Spina Bifida ([id number]) Medicare Spina Bifida ([id number])
--- OUTSIDE RECORDS SUMMARY | 2024-11-14 06:13 | XMS_ITS | Data Portability ---
Author Organization [facility], [facility] [address] Address [address] [place] [address] Care Team Providers Care Food Management Aide Name Role Phone ALONSO SANTOYO Primary Care [...] recorded. Lab unlisted lab - ferritin 2021 [facility] ([facility]), [address], [place], [address], 03:36:40 vitamin B12, serum 2021 [facility] ([facility]), [address], [place], [address], 03:36:40 folate, serum 2021 [facility] ([facility]), [address], [place], [address], 03:36:41 CBC w/ diff 2021 [facility] ([facility]), [address], [place], [address], 12:36:20 unlisted lab - ferritin 2021 [facility] ([facility]), [address], [place], [address], 14:56:47 CMP, serum or plasma 2021 [facility] ([facility]), [address], [place], [address], 15:46:55 C reactive protein, QN, serum or plasma 2021 022 [facility] ([facility]), [address] , [place], [address], 15:46:59 CBC w/ diff 2021 022 [facility] ([facility]), [address] , [place], [address], 03:28:01 culture, urethral 2020 021 [email or web address] 1 [facility] ([facility]), [address] , [place], [address], 12:25:36 Referral None recorded. Procedures None recorded. Surgeries None recorded. Imaging None recorded. Medication Orders Macrobid 100 mg capsule 2020 021 [email or web address] 4 [facility] [place], [address], 08:43:56 Patient TargetsNo targets recorded. Patient InstructionsNo instructions recorded. Reason for Referral None Reported. Results Created Date Observation Date Name Description Value Unit Range Abnormal Flag Note LastModifiedBy Organization Detail LastModifiedTime 05/14/2005/14/2021 CULTU RE, URINE culture, urine Sourc e: Urine Colle cted: 05/14 12:21 Site: Recei mario : 05/16 03:52 Cultu re, Urine FINAL 05/18 09:17 [facility] 1-10, 000 CFU/m L Mixed Ureth ral Katie Not Available [facility] [address], [place], [address], 05/18/2021 09:17:12 03/31/20 22 03/31/2022 CBC WITH DIFF WBC =7.68 thou/ cumm 3.90-1 1.20 Not Available [facility] ([facility]) [address] , [place], [address], 03/31/2022 12:36:20 09/19/20 22 03/31/2022 CBC WITH DIFF RBC =4.41 mill/ cumm 3.40-5 .40 Not Available [facility] ([facility]) [address], [place], [address], 03/31/2022 12:36:20 03/31/20 22 03/31/2022 CBC WITH DIFF hemoglobin =10.8 g/dL 10.8-1 5.5 Not Available [facility] ([facility]) [address], [place], [address], 03/31/2022 12:36:20 03/31/20 22 03/31/2022 CBC WITH DIFF hematocrit =34.9 % 33.0-4 5.0 Not Available [facility] ([facility]) [address] [place], [address], 03/31/2022 12:36:20 03/31/20 22 03/31/2022 CBC WITH DIFF MCV =79.1 fL 82.0-1 00.0 low Not Available [facility] ([facility]) [address], [place], [address], 03/31/2022 12:36:20 03/31/20 22 03/31/2022 CBC WITH DIFF MCH =24.5 pg 26.0-3 4.0 low Not Available [facility] ([facility]) [address] [place], [address], 03/31/2022 12:36:20 03/31/20 22 03/31/2022 CBC WITH DIFF MCHC =30.9 g/dL 32.0-3 6.0 low Not Available [facility] ([facility]) [address] [place], [address], 03/31/2022 12:36:20 03/31/20 22 03/31/2022 CBC WITH DIFF rdwsd =52.8 fL 35.1-4 6.8 high Not Available [facility] ([facility]) [address] , [place], [address], 03/31/2022 12:36:20 03/31/20 22 03/31/2022 CBC WITH DIFF MPV =10.9 fL 9.7-12 .8 Not Available [facility] ([facility]) [address] , [place], [address], 03/31/2022 12:36:20 03/31/20 22 03/31/2022 CBC WITH DIFF platelet count =377 thou/ cumm 140-44 0 Not Available [facility] ([facility]) [address] , [place], [address], 03/31/2022 12:36:20 03/31/20 22 03/31/2022 CBC WITH DIFF neutrophils auto =78.6 % 40.0-7 7.0 high Not Available [facility] ([facility]) [address], [place], [address], 03/31/2022 12:36:20 03/31/20 22 03/31/2022 CBC WITH DIFF immat granulocyte auto =0.3 % 0.0-0. 5 Not Available [facility] ([facility]) [address], [place], [address], 03/31/2022 12:36:20 03/31/20 22 03/31/2022 CBC WITH DIFF lymphocytes auto =14.1 % 14.0-4 7.0 Not Available [facility] ([facility]) [address], [place], [address], 03/31/2022 12:36:20 03/31/20 22 03/31/2022 CBC WITH DIFF monocytes auto =5.2 % 0.0-13 .0 Not Available [facility] ([facility]) [address] [place], [address], 03/31/2022 12:36:20 03/31/20 22 03/31/2022 CBC WITH DIFF eosinophils auto =1.0 % 0.0-7. 0 Not Available [facility] ([facility]) [address], [place], [address], 03/31/2022 12:36:20 03/31/20 22 03/31/2022 CBC WITH DIFF basophils auto =0.8 % 0.0-2. 0 Not Available [facility] ([facility]) [address], [place], [address], 03/31/2022 12:36:20 03/31/20 22 03/31/2022 CBC WITH DIFF NRBC auto =0.0 /100_ WBC 0.0-0. 2 Not Available [facility] ([facility]) [address], [place], [address], 03/31/2022 12:36:20 03/31/20 22 03/31/2022 CBC WITH DIFF abs NRBC auto <0.01 thou/ cumm 0.00-0 .01 Not Available [facility] ([facility]) [address], [place], [address], 03/31/2022 12:36:20 03/31/20 22 03/31/2022 CBC WITH DIFF abs neutrophils auto =6.04 thou/ cumm 2.00-6 .80 Not Available [facility] ([facility]) [address], [place], [address], 03/31/2022 12:36:20 03/31/20 22 03/31/2022 CBC WITH DIFF abs immat gran auto =0.02 thou/ cumm 0.00-0 .04 Not Available [facility] ([facility]) [address] [place], [address], 03/31/2022 12:36:20 03/31/20 22 03/31/2022 CBC WITH DIFF abs lymphocytes auto =1.08 thou/ cumm 0.90-3 .00 Not Available [facility] ([facility]) [address] , [place], [address], 03/31/2022 12:36:20 03/31/20 22 03/31/2022 CBC WITH DIFF abs monocytes auto =0.40 thou/ cumm 0.20-0 .80 Not Available [facility] ([facility]) [address] [place], [address], 03/31/2022 12:36:20 03/31/20 22 03/31/2022 CBC WITH DIFF abs eosinophils auto =0.08 thou/ cumm 0.00-0 .40 Not Available [facility] ([facility]) [address] [place], [address], 03/31/2022 12:36:20 03/31/20 22 03/31/2022 CBC WITH DIFF abs basophils auto =0.06 thou/ cumm 0.00-0 .10 Not Available [facility] ([facility]) [address] , [place], [address], 03/31/2022 12:36:20 03/31/20 22 03/31/2022 LITO TIN [...] n and other findi ngs. Not Available [facility] ([facility]) [address] [place], [address], 03/31/2022 14:56:46 03/31/20 22 03/31/2022 COMPR EHENS KIN METAB OLIC PANEL glucose =124 mg/dL 74-100 high Not Available [facility] ([facility]) [address] [place], [address], 03/31/2022 15:46:54 03/31/20 22 03/31/2022 COMPR EHENS KIN METAB OLIC PANEL sodium =139 mmol/ L 136-14 5 Not Available [facility] ([facility]) [address], [place], [address], 03/31/2022 15:46:54 03/31/20 22 03/31/2022 COMPR EHENS KIN METAB OLIC PANEL potassium =4.4 mmol/ L 3.5-5. 2 Not Available [facility] ([facility]) [address], [place], [address], 03/31/2022 15:46:54 03/31/20 22 03/31/2022 COMPR EHENS KIN METAB OLIC PANEL chloride =102 mmol/ L 98-107 Not Available [facility] ([facility]) [address], [place], [address], 03/31/2022 15:46:54 03/31/20 22 03/31/2022 COMPR EHENS KIN METAB OLIC PANEL CO2 =23 mmol/ L 22-29 Not Available [facility] ([facility]) [address], [place], [address], 03/31/2022 15:46:54 03/31/20 22 03/31/2022 COMPR EHENS KIN METAB OLIC PANEL anion gap =14.0 7.0-17 .0 Not Available [facility] ([facility]) [address], [place], [address], 03/31/2022 15:46:54 03/31/20 22 03/31/2022 COMPR EHENS KIN METAB OLIC PANEL calcium =9.4 mg/dL 8.6-10 .5 Not Available [facility] ([facility]) [address] [place], [address], 03/31/2022 15:46:54 03/31/20 22 03/31/2022 COMPR EHENS KIN METAB OLIC PANEL BUN =13 mg/dL 8-23 Not Available [facility] ([facility]) [address] , [place], [address], 03/31/2022 15:46:54 03/31/20 22 03/31/2022 COMPR EHENS KIN METAB OLIC PANEL creatinine =0.93 mg/dL 0.50-0 .90 high Not Available [facility] ([facility]) [address] [place], [address], 03/31/2022 15:46:54 03/31/20 22 03/31/2022 COMPR EHENS KIN METAB OLIC PANEL eGFR >60.0 Not Available [facility] ([facility]) [address] [place], [address], 03/31/2022 15:46:54 03/31/20 22 03/31/2022 COMPR EHENS [...] or ethni c subgr oups, such as [facility] nics. Extre me body size, muscl e mass, or nutri brian l statu s may alter the eGFR. Refer to K/DOQ I guide lines for resul ts <60 (Kidn ey Disea se Outco mes Quali ty Initi ative ) Not Available [facility] ([facility]) [address] [place], [address], 03/31/2022 15:46:54 03/31/20 22 03/31/2022 COMPR EHENS KIN METAB OLIC PANEL BUN-creatini ne ratio =14 10-20 Not Available [facility] ([facility]) [address] [place], [address], 03/31/2022 15:46:54 03/31/20 22 03/31/2022 COMPR EHENS KIN METAB OLIC PANEL protein total =7.1 gm/dL 6.4-8. 3 Not Available [facility] ([facility]) [address], [place], [address], 03/31/2022 15:46:54 03/31/20 22 03/31/2022 COMPR EHENS KIN METAB OLIC PANEL albumin =3.6 gm/dL 3.5-5. 2 Renal Patie nts 3.1-4 .6 gm/dL Not Available [facility] ([facility]) [address], [place], [address], 03/31/2022 15:46:54 03/31/20 22 03/31/2022 COMPR EHENS KIN METAB OLIC PANEL globulin =3.5 gm/dL 1.4-4. 7 Not Available [facility] ([facility]) [address], [place], [address], 03/31/2022 15:46:54 03/31/20 22 03/31/2022 COMPR EHENS KIN METAB OLIC PANEL albumin/glob ulin ratio =1.0 1.2-3. 6 low Not Available [facility] ([facility]) [address], [place], [address], 03/31/2022 15:46:54 03/31/20 22 03/31/2022 COMPR EHENS KIN METAB OLIC PANEL alkaline phosphatase =193 U/L 35-104 high Not Available [facility] ([facility]) [address], [place], [address], 03/31/2022 15:46:54 03/31/20 22 03/31/2022 COMPR EHENS KIN METAB OLIC PANEL AST =23 U/L 0-32 Not Available [facility] ([facility]) [address], [place], [address], 03/31/2022 15:46:54 03/31/20 22 03/31/2022 COMPR EHENS KIN METAB OLIC PANEL ALT =17 U/L 0-33 Not Available [facility] ([facility]) [address] , [place], [address], 03/31/2022 15:46:54 03/31/20 22 03/31/2022 COMPR EHENS KIN METAB OLIC PANEL bilirubin total =0.39 mg/dL 0.00-1 .20 Not Available [facility] ([facility]) [address] , [place], [address], 03/31/2022 15:46:54 03/31/20 22 03/31/2022 C-CECY CTIVE PROTE IN C-reactive protein =0.30 mg/dL <0.5 Not Available [facility] ([facility]) [address] , [place], [address], 03/31/2022 15:46:58 12/20/19 22 12/19/2021 cardi ac telem etry No observ ation record ed. tganiki Mcarthur MD [address], [place], [address], 12/19/2021 12:51:23 12/20/19 22 12/19/2021 cardi ac telem etry No observ ation record ed. tganiki Mcarthur MD [address] [employer] [address], [place], [address], 12/19/2021 12:59:04 12/21/19 22 12/20/2021 cardi ac telem etry No observ ation record ed. connor Mcarthur MD [address], [place], [address], 12/20/2021 10:57:55 02/27/20 22 01/16/2022 cardi ac telem etry MOBILE CARDIA C OP TELEME TRY Test Date: 01-16 Pat Name: LYNN REICH RN Depart ment: Sasha Lowe t ID: [id number] Room: [place] [address] Gender : Female Techni nikita: : 1949-07 Reques dar By: GLORIA SOSA Order Number : [id number] Mandeep agrcia MD: BROOKE Valentine MD Local [address] [...] //epip gayla.p merlin.he alth-f irst.o rg/sto re/H0/ [id number] 5899/c azct/H [id number] 899_20 [id number]pdf [address] [facility] [address], [place], [address], 02/26/2022 15:26:55 02/27/20 22 12/18/2021 cardi ac telem etry MOBILE CARDIA C OP TELEME TRY Test Date: 01-16 Pat Name: LYNN REICH RN Depart ment: Sasha Lowe t ID: [id number] Room: [place] [address] Gender : Female Techni nikita: : 1949-07 Reques dar By: GLORIA SOSA Order Number : [id number] Mandeep garcia MD: BROOKE Valentine MD [...] //epip gayla.p merlin.he alth-f irst.o rg/sto re/H0/ [id number] 5899/c nmct/H [id number] 899_20 [id number] .pdf mgrow4 [facility] [address] , [place], [address], 02/26/2022 15:26:54 02/27/20 22 01/16/2022 mobil e cardi ac op telem etry intrp No observ ation record ed. INTERFACE [facility] [address], [place], [address], 02/26/2022 11:22:57 Result Notes None recorded. 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 Not Available [facility] 9 06:54:48 Sensorine ural hearing loss 66989788 Active 2015 SENSORINEU RAL HEARING LOSS; Original code:H90.5 Entered By: Archie Miller [facility]/ [place]; Signed By: Lev Thacker M.D. Not Available [facility] 9 06:54:48 Thoracic back pain 573075798 Active Not Available [facility] 2 07:15:58 Low back pain 179531598 Active 2018 Not Available [facility] 2 07:15:58 Fracture of humerus 09944588 Active 2013 Spiral moderately displaced left humerus fracture. Not Available [facility] 2 07:15:58 Anemia 885947212 Active 2021 Clau hernandez, [facility] 2 11:53:37 Iron deficienc y 06911876 Active 2021 Karsten Tobias MD [address] , [place], [address] , [facility] 2 10:14:11 History of bariatric surgical procedure 882609627 Active 2021 Karsten Tobias MD [address] , [place], [address] , [facility] 2 10:14:39 Iron deficienc y anemia 04836005 Active 2021 Clau Eduardo hernandez, [facility] 2 14:19:20 Problem Notes None recorded. Procedures Surgical History Date Name Laterality Status Provider Name and Address Organization Details Recorded Time 10/03/19 22 Procedure completed [facility] 10/02/2021 08:36:17 04/19/20 21 In and Out Catheterization completed Kevin Vergara DO [address] , [place], [address], [facility] 04/22/2021 17:13:23 08/13/19 21 Date of Last Mammogram completed [facility] 04/19/2021 14:17:27 07/13/19 19 Date of Last Pap Smear completed [facility] 04/19/2021 14:17:21 07/13/19 16 Date of Last Colonoscopy completed [facility] 04/19/2021 14:17:00 Imaging Results Imaging Date Name Status LastModified by Organiz ation Details LastModified Time 12/19/2021 cardiac telemetry completed connor Mcarthur MD [address], [place], [address], 12/19/2021 12:51:23 12/19/2021 cardiac telemetry completed connor Mcarthur MD [address], [place], [address], 12/19/2021 12:59:04 12/20/2021 cardiac telemetry completed connor Mcarthur MD [address], [place], [address], 12/20/2021 10:57:55 01/16/2022 cardiac telemetry completed [facility] [address] , [place], [address], 02/26/2022 15:26:55 12/18/2021 cardiac telemetry completed [address] [facility] [address] , [place], [address], 02/26/2022 15:26:54 01/16/2022 mobile cardiac op telemetry intrp completed INTERFACE [facility] [address], [place], [address], 02/26/2022 11:22:57 Procedure Notes None recorded. Medical [...] Updated DateTime 1 167.64 cm 23.9 kg/m2 89487.6 7 g 86 /min 180 mm[Hg] 98 mm[Hg] [facility] 1 12:18:54 Date Recorded Body height Heart rate Body mass index (BMI) Body weight Systolic blood pressure Diastolic blood pressure Provider Name and Address Organization Details Last Updated DateTime 1 167.64 cm 80 /min 23.9 kg/m2 10418.6 7 g 140 mm[Hg] 88 mm[Hg] [facility] 1 08:42:11 Date Recorded Body height Heart rate Body mass index (BMI) Body weight Systolic blood pressure Diastolic blood pressure Provider Name and Address Organization Details Last Updated DateTime 2 167.64 cm 86 /min 23.9 kg/m2 17149.6 7 g 147 mm[Hg] 88 mm[Hg] Yanely Elena [facility] 2 08:33:22 Date Recorded Body height Body mass index (BMI) Body weight Heart rate Respiratory rate Oxygen saturation Oxygen saturation in Arterial blood by Pulse oximetry Systolic blood pressure Diastolic blood pressure Provider Name and Address Organization Details Last Updated DateTime 2 167.64 cm 23.6 kg/m2 50791.4 9 g 103 /min 20 /min 96 % 96 % 164 mm[Hg] 79 mm[Hg] Bess Anaya [facility] 2 11:37:35 Social History Question Answer Notes LastModified by Organizat ion Details LastModified Time Tobacco Smoking Status Current Every Day Smoker Yanely Elena [facility] 04/19/2021 14:18:41 What Is Your Level Of [...] SNOMED-CT Code Diagnosis ICD10 Code Diagnosis Note [id number] Kevin Vergara DO [facility] [address] ,[facility] [address] [place] [address] 04/19/2021 08:48:45 04/22/2021 19:12:13 Urge incontinence of urine 20183339 N39.41 1. Discussed OAB pathophysi ology. 2. Reviewed OAB treatment pathway 3. Will start by decreasing bladder irritants and no fluids after 7pm. Mixed urin laura incontinence 411057335 N39.46 1. We discussed the pathophysi ology of both DIRK and OAB. We discussed the workup and treatment options for both diagnosis. All questions were answered. 2. She will be scheduled for urodynamic testing to better characteri ze her urinary symptoms. 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 We discussed the pathophysi ology as well as treatment options which include PFPT, urethral bulking and Mid-urethr al sling. We discussed the R/B/A of each in detail. Retention of urine 32820 4002 R33.9 1. She will be scheduled for urodynamic testing to better characteri ze her urinary symptoms. 2. 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 Discussed treatment options including PFPT, Interstim, ISC and PTNSShe would like to start with PTNSShe does understand it will take 8 weeks to notice an improvemen t. Urge incon tinence of urine 88470872 N39.41 1. 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 This is treated through PFPT /biofeedba ck however she would mansoor to start with treatment of the UUI through PTNS before starting PFPT [id number] Kevin Vergara, DO [facility] [address] [facility] [place] [address] [address] [address] 10/02/2021 08:15:38 10/02/2021 08:46:38 Urge incontinence of urine 86904500 N39.41 1. She states that she is getting symptom relief from her current OAB medicine and she is able to tolerate it2. We did discuss bladder botox including the 5% risk of retention requiring ISC. Wait to schedule Botox until her mediciatio ns no longer control her symptoms3. RTC in 6 months [id number] _ATHN_MIGR ATION_3899 _ATHENA_M IGRATION_ DEFAULT_1 _3899 , 12/22/2013 00:00:00 01/10/2014 13:22:14 [id number] Gorge Edward MD [facility] [address] [address] 09/22/2018 00:00:00 09/24/2018 09:28:44 [id number] Gorge Edward MD [facility] [address] [address] 09/24/2018 00:00:00 09/24/2018 11:36:36 [id number] Gorge Edward MD [facility] [address] ,[facility] [address] [place] [address] 09/27/2018 00:00:00 09/28/2018 09:14:07 [id number] _ATHN_MIGR ATION_3899 [facility] [address] [address] 10/05/2018 00:00:00 10/08/2018 10:06:30 [id number] _ATHN_MIGR ATION_3899 [facility] [address] [address] 10/19/2018 00:00:00 10/19/2018 10:05:31 [id number] _ATHN_MIGR ATION_3899 [facility] [address] [address] 11/11/2018 00:00:00 11/12/2018 09:08:20 [id number] _ATHN_MIGR ATION_3899 [facility] [address] [address] 02/02/2019 00:00:00 02/02/2019 15:14:13 [id number] _ATHN_MIGR ATION_3899 [facility] Procedure [address] [place] [address] 03/03/2019 00:00:00 03/03/2019 11:15:40 [id number] _ATHN_MIGR ATION_3899 [facility] Main [address] [place] [address] 03/28/2019 00:00:00 03/28/2019 13:00:55 [id number] _ATHN_MIGR ATION_3899 [facility] Main [address] [place] [address] 06/13/2019 00:00:00 06/13/2019 09:24:47 [id number] _ATHN_MIGR ATION_3899 [facility] Procedure [address] [place] [address] 07/08/2019 00:00:00 07/08/2019 14:17:49 [id number] _ATHN_MIGR ATION_3899 [facility] Main [address] [place] [address] [id number] 1 07/21/2019 00:00:00 07/21/2019 12:06:27 [id number] _ATHN_MIGR ATION_3899 CFL_[facility]_ [facility] Main [address] [place] [address] 96804-139 1 08/16/2019 00:00:00 08/16/2019 09:16:07 [id number] _ATHN_MIGR ATION_3899 CFL_[facility]_ Back [facility] Procedure [address] [place] [address] 25027-506 1 09/19/2019 00:00:00 09/19/2019 09:21:59 [id number] _ATHN_MIGR ATION_3899 CFL_[facility]G_ [facility] Main [address] [place] [address] 25555-586 1 11/01/2019 00:00:00 11/01/2019 12:13:33 [id number] _ATHN_MIGR ATION_3899 CFL_[facility]G_ Back [facility] Procedure [address] [place] [address] 68294-452 1 12/21/2019 00:00:00 12/21/2019 10:27:19 [id number] _ATHN_MIGR ATION_3899 CFL_HFMG_ Back [facility] Main [address] [place] [address] 57001-236 1 12/23/2019 00:00:00 12/23/2019 09:01:03 [id number] _ATHN_MIGR ATION_3899 CFL_[facility]_ Back [facility] Procedure [address] [place] [address] [id number] 1 02/08/2020 00:00:00 02/08/2020 09:10:16 [id number] _ATHN_MIGR ATION_3899 CFL_[facility]G_ [facility] Main [address] [place] [address] 75708-863 1 02/10/2020 00:00:00 02/10/2020 13:21:38 [id number] _ATHN_MIGR ATION_3899 CFL_[facility]G_ Back [facility] Procedure [address] [place] [address] 41935-739 1 04/04/2020 00:00:00 04/04/2020 09:00:10 [id number] _ATHN_MIGR ATION_3899 CFL_[facility]G_ [facility] Main [address] [place] [address] 60682-338 1 04/27/2020 00:00:00 04/27/2020 10:09:15 [id number] Gorge Edward MD CFL[facility]_ [facility] Main [address] [place] [address] 20622-576 1 05/15/2020 00:00:00 05/15/2020 13:59:03 [id number] Gorge Edward MD CFL[facility]_ Back [facility] Procedure [address] [place] [address] 54437-357 1 05/17/2020 00:00:00 05/17/2020 16:07:48 [id number] _ATHN_MIGR ATION_3899 CFL_HFMG_ Back [facility] Main [address] [place] [address] 97886-779 1 05/23/2020 00:00:00 05/23/2020 10:31:13 [id number] Gorge Edward MD CF_[facility]G_ Back [address] 17825-524 1 07/23/2020 00:00:00 07/23/2020 08:54:39 [id number] Karsten Tobias MD CF_HFMG_ Onc_Hem_H ick [address] [place] [address] 3 03/31/2022 10:52:11 03/31/2022 15:22:09 Anemia 139437811 D64.9 Iron deficiency 49233092 E61.1 History of bariatric surgical procedure [id number] Z98.84 Health Concerns Section Related Observation LastModified by Organization Detai ls LastModified Time None Recorded Concern Status LastModified by Organization Details LastModified Time None Recorded Advance Directives Directive None Recorded Payers Encounter Date Sequence Insurance Name Policy Number Policy Burdick Covered Member ID Burdick Member ID Guarantor Name 2021 1 [place] Hillary A Naila [id number] Hillary Alvarado Naila 2021 2 () Hillary A Naila [id number] Hillary Alvarado [place] 06/11/2021 1 [place] Hillary A [place] [id number] Hillary Jenny [place] 06/11/2021 2 () Hillary A Naila [id number] Hillary Alvarado [place] 06/11/2021 1 [place] Hillary A [place] [id number] Hillary Jenny [place] 06/11/2021 2 () Hillary A [place] [id number] Hillary Alvarado [place] 10/02/2021 1 [place] Hillary A [place] [id number] Hillary Alvarado [place] 10/02/2021 2 () Hillary Pena [place] [id number] Hillary Alvarado Naila 03/31/2022 1 [place] Hillary Pena [place] [id number] Hillary Alvarado [place] 03/31/2022 2 () Hillary Pena [place] [id number] Hillary Alvarado [place] Notes Date Note Type Note Provider Name and Address Organization Details Recorded Time 2021 text/html Patient presents today for UDS, she did not have UDS due to positive leukocytes. She is not symptomatic with uti. DO Liam Wise[address], [place], [address], [facility] 2021 16:06:42 06/11/2021 text/html Patient presents today for follow up. She had uds done today. She is mostly bothered by urgency. She does not wake up wet. She does leak with standing. She does have urinary frequency. [facility] 05/14/21Patient presents today for UDS, she did not have UDS due to positive leukocytes. She is not symptomatic with uti. DO Liam Wise[address], [place], [address], [facility] 06/12/2021 10:54:30 10/02/2021 text/html She returns to [facility] today for a follow up on her UUI and retention. She would like to discuss bladder botox and see if that is an option for her. She states that she did not do PTNS. She did have UDS. DO @ 350 mL [facility] 06/11/2021atient presents today for follow up. She had uds done today. She is mostly bothered by urgency. She does not wake up wet. She does leak with standing. She does have urinary frequency. [facility] 05/14/21Patient presents today for UDS, she did not have UDS due to positive leukocytes. She is not symptomatic with uti. DO Liam Wise[address], [place], [address], [facility] 10/02/2021 11:00:30 03/31/2022 text/html Diagnosis:1. Normochromic normocytic [...] abdominal pains or nausea. Karsten Tobias MD [address], [place], [address], [facility] 04/02/[facility] 10:18:09 OBGyn Episode No OBEpisode recorded.
--- OUTSIDE RECORDS SUMMARY | 2024-11-14 06:13 | XMS_ITS | Data Portability ---
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 Not available 10/10/2024 09:36:46 10/26/2024 10/26/202410/24 wbc=12.2 hb=13.3 tun=8679 bun=11 cre=0.69 10/26 wbc 9, hgb 12.1, Plt 1017 Not available 10/26/2024 12:27:13 Plan of Treatment Reminders Order Date Submit [...] Address Organization Details Recorded Time Recurrent falls 714789672 Active 2022 JUAN MANUEL MORALES NP [address] [facility], [address], [place], [address], [facility] [employer] 11:13:43 Osteoarthr itis 566513516 Active 2022 JUAN MANUEL MORALES NP [address], [address], [place], [address], [facility] 3 11:13:48 Chronic obstructiv e pulmonary disease 43091429 Active 2022 JUAN MANUEL MORALES NP [address], [place], [address], [facility] 3 11:13:52 Gastroesop hageal reflux disease without esophagiti s 413775647 Active 2022 JUAN MANUEL MORALES NP [address], [address], [place], [address], [facility] 3 11:13:58 Congestive heart failure 69286997 Active 2022 JUAN MANUEL MORALES NP [address], [address], [place], [address], [facility] 3 11:14:03 Atrial fibrillati on 13625029 Active 2022 JUAN MANUEL MORALES NP [address] [facility], [address], [place], [address], [facility] 3 11:14:08 Hematoma of right thigh 812040655361 13051 Active 2022 JUAN MANUEL MORALES NP [address], [place], [address], [facility] 3 11:14:21 Essential hypertensi on 11692427 Active 2022 JUAN MANUEL MORALES NP [address] [facility], [address], [place], [address], [facility] 3 11:40:46 Hyperlipid emia 27070783 Active 2022 JUAN MANUEL MORALES NP [address], [place], [address], [facility] 3 11:41:07 Mixed anxiety and depressive disorder 930683886 Active 2022 JUAN MANUEL MORALES NP [address], [place], [address], [facility] 3 11:41:48 Impaired cognition 744963043 Active 2022 Sandra Morrison MD [address], [place], [address], [facility] 3 01:04:56 Overactive urinary bladder 141508721 Active 2022 Sandra Morrison MD [address], [place], [address], [facility] 3 01:13:05 Dry eyes 515223701 Active 2022 Sandra Morrison MD [address], [place], [address], [facility] 3 01:14:09 Hematoma 240476543 Active 2022 left buttock JUAN MANUEL MORALES NP [address] [facility], [address], [place], [address], [facility] 3 13:03:34 Leukocytos is 884815542 Active 2023 JUAN MANUEL MORALES NP [address] [facility], [address], [place], [address], [facility] 4 12:21:55 Restless legs 21864814 Active 2023 Sandra Morrison MD [address] [facility], [address], [place], [address], [facility] 4 18:41:39 Mixed urinary incontinen ce 705688736 Active 2023 Sandra Morrison MD [address] [facility], [address], [place], [address], [facility] 4 18:42:46 Bacterial conjunctiv itis 439421813 Active 2023 REGI COLÓN [address], [place], [address], [facility] 4 17:01:03 Thrombocyt osis 7582894 Active 2024 Abhi Erickson MD [address], [place], [address], [facility] 5 13:01:15 Notes:Some problems listed i n Document: #[id number] could not be added to this patient's [...] DateTime 07/04/2024 167.64 cm REGI COLÓN [address] [facility] [facility] [address], [place], [address], [facility] 07/04/2024 12:29:27 Date Recorded Body height Heart rate Respiratory rate Body temperature Oxygen saturation Oxygen saturation in Arterial blood by Pulse oximetry Systolic blood pressure Diastolic blood pressure Provider Name and Address Organization Details Last Updated DateTime 167.64 cm 72 /min 18 /min 97.7 [degF] 96 % 96 % 120 mm[Hg] 70 mm[Hg] REGI COLÓN [address] [facility], [facility] [address], [place], [address], [facility] 5 09:37:30 Date Recorded Body height Systolic blood pressure Diastolic blood pressure Provider Name and Address Organization Details Last Updated DateTime 10/24/2024 167.64 cm 140 mm[Hg] 80 mm[Hg] Abhi Erickson MD [address] [facility] [address], [place], [address], [facility] 10/24/2024 12:57:01 Social History Question Answer Notes LastModified by Organizat ion Details LastModified Time Tobacco Smoking Status Former Smoker JUAN MANUEL MORALES NP [address] [facility] [address], [place], [address], [facility] 08/08/2022 11:11:20 Do You Have An Advance Directive? Yes Information not available 08/11/2022 What Is Your Level Of Alcohol Consumption? None Information not available 08/08/2022 What Is Your Code Status? Full Code Information not available 08/11/2022 Where Do You Live? [facility], Previously Lived Alone, No Stairs Information not available 05/15/2023 Legal Guardian? No Informati on not available 08/12/2022 Do You Have A Medical Power Of Russet Repairer? Yes Information not available 08/12/2022 What Was [...] PF 05/22/2022 completed Maryam hernandez [place] - [facility] 07/30/2023 12:41:28 Past Encounters Encounter ID Performer Location Encounter Start Date Encounter Closed Date Diagnosis/Indication Diagnosis SNOMED-CT Code Diagnosis ICD10 Code Diagnosis Note [id number] JUAN MANUEL MORALES NP [facility] [address] [place] [address] 08/08/2022 09:43:58 08/12/2022 10:33:59 Recurrent falls 327580659 R29.6 PT OT eval and treatfall precaution sfrequent safety checks Hematoma o f right thigh 4406803956 6502362 S70.11XA change dressing per ordersmoni tor for increased swellingav oid further falls Atrial fibrillation 4943 6004 I48.91 amiodarone 200 mg dailyeiliq uis 5 mg bidbisopro lol 2.5 mg daily Chronic ob structive pulmonary disease 45231934 J44.9 albuterol inhaler q4hr prnadvair 100/25 daily Congestive heart failure 97473055 I50.9 lasix 20 mg dailylosar miller 25 mg daily Osteoarthritis 381883192 M19.90 cholecalci ferol 2000 dailyrisen dronate 35 weekly Gastroesop hageal reflux disease without esophagitis 246412907 K21.9 CaCarb 500 bidprotoni x 40 mg daily Essential hypertension 30540488 I10 amlodipine 5 mg dailycloni dine 0.1 mg q12 hr Hyperlipidemia 09001563 E78.5 atorvastat in 40 mg daily Mixed anxi ety and depressive disorder 828333742 F41.8 bupropion er 150 mg dailytrazo done 100 mg hs JUAN MAN[facility]EL [facility]ALES NP [facility] [address] [place] [address] 08/11/2022 14:11:22 08/13/2022 13:57:19 Hematoma of right thigh 4793501002 8507056 S70.11XA change dressing per [facility] for increased swellingav oid further falls Congestive heart failure 13484671 I50.9 lasix 20 mg dailylosar miller 25 mg daily [id number] Sandra Morrison MD [facility] [address] [place] [address] 08/12/2022 17:25:40 08/18/2022 16:13:47 Hematoma of right thigh 8227504584 8633972 S70.11XD With minimal drainage from drains.Lik bruno will get removed at appt tomorrow.M onitor thigh for healing.Mo nitor CBC. Congestive heart failure 77557457 I50.22 Appears euvolemic. Continue bisoprolol 2.5 mg qd, lasix 20 mg qd and losartan 25 mg qd.Monitor resp. status, fluid status, wts and labs. Recurrent falls 14289690 2 R29.6 Very deconditio demetrius.Needs PT/OT for strengthen ing, balance, gait training, safety and function.C ontinue fall precaution s.Monitor for safety. Atrial fibrillation 4943 6004 I48.0 Rate in good control on meds as above and amiodarone 200 mg qd.Continu e eliquis 5 mg BID for AC.Monitor HR and bleeding risk. Chronic ob structive pulmonary disease 98905293 J43.8 At baseline.C ontinue Advair 100/25 mcg BID and albuterol MDI 2 puffs q 4 hrs prn.Monito r resp. status. Gastroesop hageal reflux disease without esophagitis 386305825 K21.9 No current sxs.Contin ue pantoprazo le 40 mg qd.Monitor sxs. Essential hypertension 70636805 I10 Systolic has been high periodical ly, likely due to pain.No change in meds for now.Contin ue meds as above and amlodipine 5 mg qd and clonidine 0.1 mg BID.Monito r BP and labs. Hyperlipidemia 71111530 E78.49 Continue atorvastat in 40 mg qd.Monitor labs as outpt. Mixed anxi ety and depressive disorder 973695587 F41.8 Mood ok tonight.Co ntinue bupropion ER 150 mg qd and trazodone 100 mg qhsMonitor mood.Psych consult prn. Osteoporosis 99964005 M8 1.0 Continue cholecalci ferol 2000 IU qd, calcium 500 mg BID, and risedronat e 35 mg weeklyMoni tor as outpt. [id number] TONY ALMARAZ IKER [address] [place] [address] 08/14/2022 11:52:29 08/18/2022 16:23:58 Chronic obstructive pulmonary disease 52193176 J44.9 albuterol inhaler q4hr prnadvair 100/25 daily Congestive heart failure 04838771 I50.9 lasix 20 mg dailylosar miller 25 mg daily [id number] JUAN MANUEL MORALES NP [facility] [address] [place] [address] 08/20/2022 13:24:34 08/22/2022 13:09:35 Chronic obstructive pulmonary disease 79087440 J43.8 albuterol inhaler q4hr prnadvair 100/25 daily Mixed anxi ety and depressive disorder 279955742 F41.8 bupropion er 150 mg dailytrazo done 100 mg hsmonitor and chart any changes in mood or behaviorsp sych prn [id number] JUAN MANUEL CHAPATONY BAER MARCIO DONG [address] [place] [address] 08/27/2022 10:50:59 09/02/2022 10:27:22 Hematoma of right thigh 1290172217 5929416 S70.11XD change dressing per ordersmoni tor for increased swellingav oid further fallsWBAT Chronic ob structive pulmonary disease 32355522 J43.8 albuterol inhaler q4hr prnadvair 100/25 daily Recurrent falls 07442554 2 R29.6 PT OT eval and treatfall precaution sfrequent safety checks [id number] JUAN MANUEL TONY MORALES [address] [address] 09/03/2022 10:52:54 09/05/2022 13:45:58 Chronic obstructive pulmonary disease 79720101 J43.8 albuterol inhaler q4hr prnadvair 100/25 daily Recurrent falls 68268093 2 R29.6 PT OT eval and treatfall precaution sfrequent safety checks [id number] JUAN MANUELBecky MORALES NP [address] [address] 09/05/2022 10:51:26 09/09/2022 07:59:39 Recurrent falls 097059997 R29.6 PT OT eval and treatfall precaution sfrequent safety checks Hematoma o f right thigh 9712866028 3845375 S70.11XA change dressing per ordersmoni tor for increased swellingav oid further falls Atrial fibrillation 4943 6004 I48.91 amiodarone 200 mg dailyeiliq uis 5 mg bidbisopro lol 2.5 mg daily Chronic ob structive pulmonary disease 41122676 J44.9 albuterol inhaler q4hr prnadvair 100/25 daily Congestive heart failure 52069503 I50.9 lasix 20 mg dailylosar miller 25 mg daily Osteoarthritis 577459106 M19.90 cholecalci ferol 2000 dailyrisen dronate 35 weekly Gastroesop hageal reflux disease without esophagitis 155684984 K21.9 CaCarb 500 bidprotoni x 40 mg daily Essential hypertension 60218567 I10 amlodipine 5 mg dailycloni dine 0.1 mg q12 hr Hyperlipidemia 85821975 E78.5 atorvastat in 40 mg daily Mixed anxi ety and depressive disorder 691193083 F41.8 bupropion er 150 mg dailytrazo done 100 mg hs [id number] Sandra Morrison MD [address] [address] 10/07/2022 18:29:02 10/10/2022 15:21:01 Abrasion and/or friction burn of back without infection 81372542 S30.810A With open abrasion.W ill use local care and protection with dressings and monitor sxs. fall W18.39XA Pt. reminded to call for help when she wants to get up.Continu es to need PT/OT for strengthen ing, balance, gait training, safety and function.C ontinue fall precaution s.Monitor for safety. Essential hypertension 49607754 I10 Systolic was very high this AM, not rechecked since fall. Overall good recently.C ontinue bisoprolol 2.5 mg qd, lasix 20 mg qd, losartan 25 mg qd. amlodipine 5 mg qd and clonidine 0.1 mg BID.Monito r BP and labs. [id number] Sandra Morrison MD [address] [address] 10/09/2022 13:55:48 10/14/2022 11:00:12 Abrasion and/or friction burn of back without infection 33864876 S30.810A Abrasion healing.Co ntinue local care and protection with dressings and monitor sxs. fall W18.39XA Fall 2 days ago.Contin ues to need PT/OT for strengthen ing, balance, gait training, safety and function.C ontinue fall precaution s.Monitor for safety. Essential hypertension 73358904 I10 Continues with intermitte nt elevated SBP, [...] and labs. Hematoma o f right thigh 2858854292 8647812 S70.11XD Healed.CBC stable. Congestive heart failure 93146451 I50.22 Continues to be euvolemic. Continue bisoprolol 2.5 mg qd, lasix 20 mg qd and losartan 25 mg qd.Monitor resp. status, fluid status, wts and labs. Atrial fibrillation 4943 6004 I48.0 Rate remains in good control on meds as above and amiodarone 200 mg qd.Continu e eliquis 5 mg BID for AC.Monitor HR and bleeding risk. Chronic ob structive pulmonary disease 56789905 J43.8 Continues at baseline.C ontinue Advair 100/25 mcg BID and albuterol MDI 2 puffs q 4 hrs prn.Monito r resp. status. Osteoporosis 20768243 M8 1.0 Continue cholecalci ferol 2000 IU qd, calcium 500 mg BID, and risedronat e 35 mg weeklyMoni tor as outpt. Gastroesop hageal reflux disease without esophagitis 528958857 K21.9 No current sxs.Contin ue pantoprazo le 40 mg qd.Monitor sxs. Hyperlipidemia 83787094 E78.49 Continue atorvastat in 40 mg qd.Monitor labs as outpt. Mixed anxi ety and depressive disorder 371035702 F41.8 Mood ok tonight.Co ntinue bupropion ER 150 mg qd, Buspar 5 mg qd, and trazodone 100 mg qhsMonitor mood.Psych consult prn. Impaired cognition 36848 6002 R41.89 Oriented today, but with frequent episodes of confusion. Continue supportive care, expect decline.HC P invokedMon itor mood and behaviors. Psych consult prn. Overactive urinary bladder 789689515 N32.81 Per pt. has been on Gemtesa in the past, would like to restart.Ge mtesa 75 mg qd.Monitor urinary function. Restless legs 29455059 G 25.81 With increased sxs of RLS.Will start requip 0.25 mg qhs.Monito r sxs. Dry eyes 920869006 H04.1 23 Will start natural tears q 2 hrs prn, may leave at bedside.Mo nitor sxs. [id number] TONY ALMARAZ [address] [place] [address] rd [place] [address] 10/13/2022 12:47:26 10/15/2022 12:27:09 Hematoma 940717624 M79.81 sent to ED for further eval as it is expanding [id number] JUAN MANUEL MORALES NP MARCIO DONG [address] [place] [address] [place] [address] 10/17/2022 10:23:03 10/22/2022 16:06:33 Hematoma 229360467 M79.81 oxycodone 2.5 mg q6hr prn for 5 daysmonito r for healibng Recurrent falls 59067892 2 R29.6 PT OT eval and treatfall precaution sfrequent safety checks Hematoma o f right thigh 1331987903 1287883 S70.11XA resolvedav oid further falls Atrial fibrillation 4943 6004 I48.91 amiodarone 200 mg dailyeiliq uis 5 mg bidbisopro lol 2.5 mg daily Chronic ob structive pulmonary disease 95278214 J44.9 albuterol inhaler q4hr prnadvair 100/25 daily Congestive heart failure 94500278 I50.9 lasix 20 mg dailylosar miller 25 mg daily Osteoarthritis 933716419 M19.90 cholecalci ferol 2000 dailyrisen dronate 35 weekly Gastroesop hageal reflux disease without esophagitis 640444487 K21.9 CaCarb 500 bidprotoni x 40 mg daily Essential hypertension 85495004 I10 amlodipine 5 mg dailycloni dine 0.1 mg q12 hr Hyperlipidemia 13983465 E78.5 atorvastat in 40 mg daily Mixed anxi ety and depressive disorder 520560283 F41.8 bupropion er 150 mg dailybuspa r 5 mg dailytrazo done 100 mg hs Overactive urinary bladder 725871756 N32.81 Gemtesa 75 mg qd.Monitor urinary function. [id number] TONY ALMARAZ IKER [address] [place] [address] [place] [address] 10/20/2022 12:38:53 10/22/2022 16:25:33 Hematoma 463725664 M79.81 oxycodone 2.5 mg q6hr prn for 5 daysmonito r for healing Recurrent falls 74948650 2 R29.6 PT OT eval and treatfall precaution sfrequent safety checks [id number] JUAN MANUEL MORALES NP [address] [address] 10/24/2022 10:45:27 10/28/2022 12:44:55 Hematoma 767591121 M79.81 oxycodone 2.5 mg q6hr prn for 5 daysmonito r for healing Impaired cognition 89976 6002 R41.89 Oriented intermitte ntly, but with frequent episodes of confusion. Continue supportive care, expect decline.HC P invokedMon itor mood and behaviors. Psych consult prn. [id number] JUAN MANUEL MORALES NP [address] [address] 10/29/2022 13:57:22 10/31/2022 15:54:37 Hematoma 756072033 M79.81 monitor for healing Recurrent falls 72864122 2 R29.6 PT OT eval and treatfall precaution sfrequent safety checks Hematoma o f right thigh 8131354409 2724078 S70.11XA resolvedav oid further falls Atrial fibrillation 4943 6004 I48.91 amiodarone 200 mg dailyeiliq uis 5 mg bidbisopro lol 2.5 mg daily Chronic ob structive pulmonary disease 15994931 J44.9 albuterol inhaler q4hr prnadvair 100/25 daily Congestive heart failure 17866526 I50.9 lasix 20 mg dailylosar miller 25 mg daily Osteoarthritis 049038220 M19.90 cholecalci ferol 2000 dailyrisen dronate 35 weekly Gastroesop hageal reflux disease without esophagitis 370473659 K21.9 CaCarb 500 bidprotoni x 40 mg daily Essential hypertension 79398811 I10 amlodipine 5 mg dailycloni dine 0.1 mg q12 hr Hyperlipidemia 66972765 E78.5 atorvastat in 40 mg daily Mixed anxi ety and depressive disorder 531657274 F41.8 bupropion er 150 mg dailybuspa r 5 mg dailytrazo done 100 mg hs Overactive urinary bladder 745453355 N32.81 Gemtesa 75 mg qd.Monitor urinary function. [id number] Jenni Kwong MD [address] [address] 01/28/2023 07:59:08 01/30/2023 15:30:48 Impaired cognition 857365321 R41.89 will monitor and support as neededI did not feel that I could invoke patient's HCP proxy today as she was quite appropriat e in her answers to my questions with even some insight. Chronic ob structive pulmonary disease 89028608 J41.0 Advair 250-50: one puff [id number] rol HFA: 2 puffs q4h prnwill monitor Atrial fibrillation 4943 6004 I48.0 apixaban 5 mg bidbisopro lol 2.5 mg dailyamiod arone 200 mg dailywill monitor Essential hypertension 34235183 I10 bisoprolol 2.5 mg dailyamlod ipine 5 mg dailyfuros emide 20 mg dailylosar miller 25 mg dailycloni dine 0.1 mg i51xtnns monitor Mixed anxi ety and depressive disorder 082167756 F41.8 buspirone 5 mg tidtrazodo ne 100 mg at hsbupropri on 100 mg dailyescit alopram 10 mg dailyhydro xyzine 10 mg q8h prn anxietywil l monitor Overactive urinary bladder 141530879 N32.81 vibegron 75 mg dailywill monitor Restless legs 91808609 G 25.81 ropinirole 0.25 mg dailywill monitor Gastroesop hageal reflux disease without esophagitis 603564818 K21.9 pantoprazo le 40 mg dailywill monitor Primary osteoporosis 276 124501 M81.0 risendrona te 25 mg weeklywill monitor Chronic sy stolic heart failure 279668143 I50.22 losartan 25 mg dailyfuros emide 20 mg dailybisop rolol 2.5 mg dailywill monitor [id number] TONY ALMARAZ IKER [address] [place] [address] rd [place] [address] 03/20/2023 16:32:09 03/27/2023 09:38:51 Overactive urinary bladder 922820489 N32.81 urology consult prnMonitor urinary function. Impaired cognition 39078 6002 R41.89 will monitor and support as needed Chronic ob structive pulmonary disease 56200689 J41.0 Advair 250-50: one puff [id number] rol HFA: 2 puffs q4h prnwill monitor Atrial fibrillation 4943 6004 I48.0 apixaban 5 mg bidbisopro lol 2.5 mg dailyamiod arone 200 mg dailywill monitor Essential hypertension 97266380 I10 bisoprolol 2.5 mg dailyamlod ipine 5 mg dailyfuros emide 20 mg dailylosar miller 25 mg dailycloni dine 0.1 mg k42dwemp monitor Mixed anxi ety and depressive disorder 690293597 F41.8 buspirone 5 mg tidtrazodo ne 100 mg at hsbupropri on 100 mg dailyescit alopram 10 mg dailyhydro xyzine 10 mg q8h prn anxietywil l monitor Restless legs 81639197 G 25.81 ropinirole 0.25 mg dailywill monitor Gastroesop hageal reflux disease without esophagitis 292518835 K21.9 pantoprazo le 40 mg dailywill monitor Primary osteoporosis 276 112919 M81.0 risendrona te 25 mg weeklywill monitor Chronic sy stolic heart failure 276254232 I50.22 losartan 25 mg dailyfuros emide 20 mg dailybisop rolol 2.5 mg dailywill monitor Recurrent falls 99953370 2 R29.6 PT OT eval and treatfall precaution sfrequent safety checks [id number] Sandra Morrison MD [address] [address] 05/15/2023 17:56:32 05/19/2023 11:07:46 Fall 4868687 R29.6 Hx of fallsConti nue fall precaution s.Monitor for safety. Essential hypertension 20959007 I10 Good control.Co ntinue bisoprolol 2.5 mg qd, lasix 20 mg qd, losartan 25 mg qd. amlodipine 5 mg qd and clonidine 0.1 mg BID.Monito r BP and labs. Hematoma o f right thigh 2461688107 2001879 S70.11XD Healed.CBC stable. Impaired cognition 77591 6002 R41.89 Mild confusion today, but fairly oriented.C ontinue supportive care, expect decline.HC P invokedMon itor mood and behaviors. Psych consult prn. Congestive heart failure 10476952 I50.22 Continues to be euvolemic. Continue bisoprolol 2.5 mg qd, lasix 20 mg qd and losartan 25 mg qd.Monitor resp. status, fluid status, wts and labs. Atrial fibrillation 4943 6004 I48.0 Rate remains in good control on meds as above and amiodarone 200 mg qd.Continu e eliquis 5 mg BID for AC.Monitor HR and bleeding risk. Chronic ob structive pulmonary disease 71309922 J43.8 Continues at baseline.C ontinue Advair 100/25 mcg BID and albuterol MDI 2 puffs q 4 hrs prn.Monito r resp. status. Osteoporosis 88499960 M8 1.0 Continue cholecalci ferol 2000 IU qd, calcium 500 mg BID, and risedronat e 35 mg weeklyMoni tor as outpt. Gastroesop hageal reflux disease without esophagitis 538790299 K21.9 No current sxs.Contin ue pantoprazo le 40 mg qd.Monitor sxs. Hyperlipidemia 00820096 E78.49 Continue atorvastat in 40 mg qd.Monitor labs as outpt. Mixed anxi ety and depressive disorder 835523798 F41.8 Mood ok tonight.Co ntinue bupropion ER 100 mg qd, Buspar 5 mg TID, clonidine 0.1 m BID, and trazodone 100 mg qhsMonitor mood.Psych consult prn. Restless legs 65938344 G 25.81 Continue requip 0.25 mg qhs.Monito r sxs. Mixed urin laura incontinence 348813136 N39.46 Continue estring 2 mg q 3 months and estrace cream 2 gms 3x/wkMonit or urinary function.F /U with uro prn. Visual hallucinations 64 329732 R44.1 Psych consult for visual and auditory hallucinat ions.[place] pt. [id number] TONY ALMARAZ [address] [place] [address] rd [place] [address] 07/10/2023 12:52:00 07/21/2023 11:22:40 Overactive urinary bladder 231318125 N32.81 urology consult prnMonitor urinary function.d -mannose 500 mg daily uti preventati ve Impaired cognition 48067 6002 R41.89 will monitor and support as needed Chronic ob structive pulmonary disease 72558507 J41.0 Advair 250-50: one puff [id number] rol HFA: 2 puffs q4h prnwill monitor Atrial fibrillation 4943 6004 I48.0 apixaban 5 mg bidbisopro lol 2.5 mg dailyamiod arone 200 mg dailywill monitor Essential hypertension 18819838 I10 bisoprolol 2.5 mg dailyamlod ipine 5 mg dailyfuros emide 20 mg dailylosar miller 25 mg dailycloni dine 0.1 mg p41uodex monitor Mixed anxi ety and depressive disorder 521631661 F41.8 buspirone 5 mg tidtrazodo ne 100 mg at hsbupropri on 100 mg dailyescit alopram 10 mg dailyhydro xyzine 10 mg q8h prn anxietywil l monitor Restless legs 41734946 G 25.81 ropinirole 0.25 mg dailywill monitor Gastroesop hageal reflux disease without esophagitis 377981619 K21.9 pantoprazo le 40 mg dailywill monitor Primary osteoporosis 276 140452 M81.0 risendrona te 25 mg weeklywill monitor Chronic sy stolic heart failure 171426559 I50.22 losartan 25 mg dailyfuros emide 20 mg dailybisop rolol 2.5 mg dailywill monitor Recurrent falls 08383915 2 R29.6 PT OT eval and treatfall precaution sfrequent safety checks [id number] JUAN MANUEL MORALES NP [address] [address] 07/15/2023 12:09:17 07/21/2023 14:31:17 Leukocytosis 140851235 D72.829 UA C/Scxr [id number] Martina Oliva [address] [address] [address] 08/28/2023 10:48:09 10/26/2023 15:56:34 Atrial fibrillation 91718678 I48.0 chronic, stable. RCcontinue eliquiscon tinue norvasccon tinue amiodarone monitor HR Chronic ob structive pulmonary disease 93605820 J41.0 chronic stablecont inue inhalersmo nitor for changes in respirator y status Congestive heart failure 45386158 I50.22 chronic, stablecont inue lasix 20mg dailymonit or BMP Essential hypertension 11028815 I10 chronic stablecont inue norvasc and losartanal so on lasix Hyperlipidemia 68052618 E78.49 continue atorvastat inmonitor lipids annually [id number] Jenni Kwong MD [address] [address] 09/09/2023 08:10:55 09/15/2023 10:16:26 Impaired cognition 500100932 R41.89 will monitor and support as needed Mixed anxi ety and depressive disorder 929957493 F41.8 buspirone 5 mg tidtrazodo ne 100 mg at hsbupropri on 100 mg dailyescit alopram 10 mg dailyhydro xyzine 10 mg q8h prn anxietywil l monitor Atrial fibrillation 4943 6004 I48.0 apixaban 5 mg bidbisopro lol 2.5 mg dailyamiod arone 200 mg dailywill monitor Essential hypertension 72084469 I10 bisoprolol 2.5 mg dailyamlod ipine 5 mg dailyfuros emide 20 mg dailylosar miller 25 mg dailycloni dine 0.1 mg [id number] monitor Hyperlipidemia 70342599 E78.49 atorvastat in 40 mg dailywill monitor Chronic ob structive pulmonary disease 86659971 J41.0 Advair 250-50: one puff [id number] rol HFA: 2 puffs q4h prnwill monitor Gastroesop hageal reflux disease without esophagitis 788870129 K21.9 pantoprazo le 40 mg dailywill monitor Restless legs 10222055 G 25.81 ropinirole 0.25 mg dailywill monitor Cobalamin deficiency 190 078026 E53.8 B12 500 mcg dailywill monitor [id number] RE[facility] [address] [address] 09/21/2023 11:12:35 09/23/2023 09:57:55 Acute dermatitis 08585226 L30.9 left upper facial near left eye [...] provide new make up brushes Impaired cognition 60677 6002 R41.89 will monitor and support as needed [id number] REGI [facility]N [address] [address] 09/22/2023 15:18:31 09/24/2023 12:07:21 Impaired cognition 897295752 R41.89 will monitor and support as needed Pain of le ft knee region 0316703512 03788 M25.562 see hpiwill scheduled 975 mg tylenol TIDxray left knee 2 viewsconsi christiano PT/OT eval if imaging is negative for fx. [id number] RE[facility] [address] [address] 10/13/2023 18:47:09 10/15/2023 17:16:34 Cough 08095141 R05.9 10/11: started mucinex 600 mg q [...] dayincreas e oral hydrationm onitor resp status [id number] REGI [facility]N [address] [address] 10/29/2023 11:14:47 11/03/2023 12:16:03 Impaired cognition 130300906 R41.89 Continue supportive care, expect decline.HC P invokedMon itor mood and behaviors. Psych consult prn. Essential hypertension 63642344 I10 BP has been controlled with current medicatios .Continue bisoprolol 2.5 mg qd, lasix 20 mg qd, losartan 25 mg qd. amlodipine 5 mg qd and clonidine 0.1 mg BID.Monito r BP and labs. Congestive heart failure 22280272 I50.22 euvolemic. Continue bisoprolol 2.5 mg qd, lasix 20 mg qd and losartan 25 mg qd.Monitor resp. status, fluid status, wts and labs. Atrial fibrillation 4943 6004 I48.0 HR controlled continue amiodarone 200 mg qd.Continu e eliquis 5 mg BID for AC.Monitor HR and bleeding risk. Chronic ob structive pulmonary disease 85957974 J43.8 Continues at baseline.C ontinue Advair 100/25 mcg BID and albuterol MDI 2 puffs q 4 hrs prn.Monito r resp. status. Osteoporosis 96670652 M8 1.0 Continue cholecalci ferol 2000 IU qd, calcium 500 mg BID, and risedronat e 35 mg weeklyMoni tor as outpt. Gastroesop hageal reflux disease without esophagitis 529891317 K21.9 No current sxs.Contin ue pantoprazo le 40 mg qd.Monitor sxs. Hyperlipidemia 73005349 E78.49 Continue atorvastat in 40 mg qd.Monitor labs as outpt. Mixed anxi ety and depressive disorder 406881718 F41.8 Continue bupropion ER 100 mg qd, Buspar 5 mg TID, clonidine 0.1 m BID, and trazodone 100 mg qhs,lexapr o 10 mg daily and hydroxyzin e 10 mg qdMonitor mood.Psych consult prn. Restless legs 73330756 G 25.81 Continue requip 0.25 mg qhs.Monito r sxs. Mixed urin laura incontinence 918015634 N39.46 Continue estring 2 mg q 3 monthsMoni tor urinary function.F /U with uro prn. Tear of skin 968702616 T 14.8XXA LLE flap tear, approximat edcontinue to monitor healing. [id number] RE[facility] [address] [place] [address] [place] [address] 11/10/2023 12:24:35 11/23/2023 12:50:14 Pain of shoulder region 01041742 M25.519 right shoulder pain+ discomfort with abduction, suspect OAnursing to give now dose tylenol and continue prnPT/OT eval and treatwill monitor. [id number] [facility] MARCIO DONG [address] [place] [address] [place] [address] 11/25/2023 11:56:55 11/27/2023 12:02:47 Candidiasis of vagina 81447108 B37.31 vaginal redness appears yeastPatie nt has no discomfort start diflucan 150 mg Q72 for 3 dosesPt is incontinen t, nursing encourage to check for incontinen t episode and change Q2.keep skin clean and drymonitor for resolution [id number] MD MARCIO Ramirez IKER [address] [place] [address] [place] [address] 01/15/2024 21:46:22 02/02/2024 07:55:44 Impaired cognition 005463047 R41.89 Continues at baseline.C ontinue escitalopr am 10 mg qd, bupropion ER 100 mg qd, Buspar 5 mg TID, clonidine 0.1 m BID, trazodone 100 mg qhs, and hydroxyzin e 10 mg qd.Continu e supportive care, expect decline.HC P invokedMon itor mood and behaviors. Psych follows. Visual hallucinations 64 581390 R44.1 Psych follows, no mention of this in recent notes.Aida tor Essential hypertension 91211477 I10 Continues in good control.Co ntinue bisoprolol 2.5 mg qd, lasix 20 mg qd, losartan 25 mg qd. amlodipine 5 mg qd and clonidine 0.1 mg BID.Monito r BP and labs. Congestive heart failure 84159912 I50.22 Continues to be euvolemic. Continue bisoprolol 2.5 mg qd, lasix 20 mg qd and losartan 25 mg qd.Monitor resp. status, fluid status, wts and labs. Atrial fibrillation 4943 6004 I48.0 Rate in good control on meds as above and amiodarone 200 mg qd.Continu e eliquis 5 mg BID for AC.Monitor HR and bleeding risk. Chronic ob structive pulmonary disease 75376408 J43.8 Continues at baseline.C ontinue Advair 100/25 mcg BID and albuterol MDI 2 puffs q 4 hrs prn.Mucine x 600 mg BID added for cough in 10/2023.Mon itor resp. status. Osteoporosis 46748107 M8 1.0 Continue cholecalci ferol 2000 IU qd, calcium 500 mg BID, and risedronat e 35 mg weeklyMoni tor as outpt. Gastroesop hageal reflux disease without esophagitis 261217568 K21.9 No current sxs.Contin ue pantoprazo le 40 mg qd.Monitor sxs. Hyperlipidemia 89552106 E78.49 Continue atorvastat in 40 mg qd.Monitor labs as outpt. Mixed anxi ety and depressive disorder 687315430 F41.8 As above. Restless legs 32416171 G 25.81 She mentions this tonight.Co ntinue requip 0.25 mg qhs.Consid er increase to 0.5 mg qhs.Monito r sxs. Mixed urin laura incontinence 413852027 N39.46 Continue estring 2 mg q 3 months.Mon itor urinary function.F /U with uro prn. Cough 70024176 R05.9 Back to baseline.M onitor [id number] RE[facility] [address] [address] 02/24/2024 09:53:07 02/25/2024 10:07:37 Bacterial conjunctivitis 378918637 H10.9 see hpibilater al erythema, dry yellowish discharge noted on lashes and corners or eyesstart ofloxacin 0.3 % 2 gtts QID for 5 daysmonito r for resolution patient encouraged to avoid rubbing eyes, apply cool compress for comfort. [id number] [facility] [address] [place] [address] 03/02/2024 10:16:42 03/04/2024 10:24:18 Bacterial conjunctivitis 115858101 H10.9 ofloxacin eye gtts completeds clera white, no drainage or discharge, denies didcomfort .bilateral erythema, dry yellowish discharge noted on lashes and corners or eyespatien t encouraged to avoid rubbing eyes, apply cool compress for comfort. Mixed anxi ety and depressive disorder 063076455 F41.8 followed by [facility] seen on 02/28 with recommenda tion for GDR she is currently on 4 psychotrop ic medication 03/02: decrease bupropion ER 100 mg qd to 75 mgcheck EKG for QTcContinu e , Buspar 5 mg TID, clonidine 0.1 m BID, and trazodone 100 mg qhs,lexapr o 10 mg daily and hydroxyzin e 10 mg qdMonitor mood.Psych prn [id number] RE[facility] [address] [place] [address] 03/07/2024 15:12:42 03/09/2024 09:31:11 Recurrent falls 202535831 R29.6 see hpino acute injuries or reports of discomfort .nursing to continue post fall protocol. [id number] RE[facility] [address] [place] [address] 03/09/2024 10:14:06 03/15/2024 13:07:32 Impaired cognition 531622358 R41.89 Continue supportive care, expect decline.HC P invokedMon itor mood and behaviors. Psych consult prn. Essential hypertension 88954447 I10 Continue bisoprolol 2.5 mg qd, lasix 20 mg qd, losartan 25 mg qd. amlodipine 5 mg qd and clonidine 0.1 mg BID.Monito r BP and labs. Congestive heart failure 65631324 I50.22 euvolemic. she has been stableCont inue bisoprolol 2.5 mg qd, lasix 20 mg qd and losartan 25 mg qd.Monitor resp. status, fluid status, wts and labs. Atrial fibrillation 4943 6004 I48.0 denies any chest pain or other associated sx,continu e amiodarone 200 mg qd.Continu e eliquis 5 mg BID for AC.Monitor HR and bleeding risk. Chronic ob structive pulmonary disease 17752132 J43.8 Continues at baseline.C ontinue Advair 100/25 mcg BID and albuterol MDI 2 puffs q 4 hrs prn.Monito r resp. status. Osteoporosis 88656537 M8 1.0 Continue cholecalci ferol 2000 IU qd, calcium 500 mg BID, and risedronat e 35 mg weeklyMoni tor as outpt. Gastroesop hageal reflux disease without esophagitis 678918623 K21.9 tolerating a regular diet, no reported GI upsetConti nue pantoprazo le 40 mg qd.Monitor sxs. Hyperlipidemia 15441135 E78.49 Continue atorvastat in 40 mg qd.Monitor labs as outpt. Mixed anxi ety and depressive disorder 545234393 F41.8 Continue bupropion ER 100 mg qd, Buspar 5 mg TID, clonidine 0.1 m BID, and trazodone 100 mg qhs,lexapr o 10 mg daily and hydroxyzin e 10 mg qdMonitor mood.Psych consult prn. Restless legs 79879719 G 25.81 Continue requip 0.25 mg qhs.Monito r sxs. Mixed urin laura incontinence 372916546 N39.46 Continue estring 2 mg q 3 monthsMoni tor urinary function.F /U with uro prn. Bacterial conjunctivitis 722983774 H10.9 resolvedof loxacin eye gtts completeds stacy villalobos, no drainage or discharge, denies discomfort . Recurrent falls 93893317 2 R29.6 s/p fall 03/05no acute injuries or reports of discomfort .nursing to continue post fall protocol. [id number] [facility] [address] [place] [address] 04/04/2024 13:13:21 04/05/2024 13:32:19 Viral conjunctivitis 59200210 B30.9 left eyeleft sclera erythema, lower lid swelling( aggravated by rubbing) with clear drainage.n o itchiness or discomfort start azelastine gtt BID for 14 day.monito r for resolution patient encouraged to avoid rubbing eyes, apply cool compress for comfort. [id number] [facility] [address] [place] [address] 04/07/2024 11:04:20 04/08/2024 12:46:40 Viral conjunctivitis 58101072 B30.9 left eye /stablelef t sclera erythema, lower lid swelling( aggravated by rubbing) with clear drainage.n o itchiness or discomfort start azelastine gtt BID for 14 day.- have not received med from pharmacy-m onitor for resolution patient encouraged to avoid rubbing eyes, apply cool compress for comfort. Acute urin laura tract infection 910502630 N39.0 see hpiwill start bactrim 400mg Q12 for 7 dayadd probiotic BIDencoura ged to have increased water consumptio n to flush out toxins Hypokalemia 16329337 E87 .6 subtle at 3.1will replete with kcl 20 meq times 2 daysmonito r for associated sx (weakness, cramping, twitching) patient to notify nursing staff with sx [id number] RE[facility] e [address] [place] [address] [place] [address] 04/28/2024 11:26:55 04/29/2024 11:42:54 Impaired cognition 522472250 R41.89 stableCont inue supportive care, expect decline.HC P invokedMon itor mood and behaviors. Psych consult prn. Essential hypertension 31817206 I10 Continue bisoprolol 2.5 mg qd, lasix 20 mg qd, losartan 25 mg qd. amlodipine 5 mg qd and clonidine 0.1 mg BID.Monito r BP and labs. Congestive heart failure 12393240 I50.22 euvolemic. she has been stableCont inue bisoprolol 2.5 mg qd, lasix 20 mg qd and losartan 25 mg qd.Monitor resp. status, fluid status, wts and labs. Atrial fibrillation 4943 6004 I48.0 denies any chest pain or other associated sx,continu e amiodarone 200 mg qd.Continu e eliquis 5 mg BID for AC.Monitor HR and bleeding risk. Chronic ob structive pulmonary disease 77117572 J43.8 Continues at baseline.C ontinue Advair 100/25 mcg BID and albuterol MDI 2 puffs q 4 hrs prn.Monito r resp. status. Osteoporosis 50711360 M8 1.0 Continue cholecalci ferol 2000 IU qd, calcium 500 mg BID, and risedronat e 35 mg weeklyMoni tor as outpt. Gastroesop hageal reflux disease without esophagitis 997898160 K21.9 tolerating a regular diet, no reported GI upsetConti nue pantoprazo le 40 mg qd.Monitor sxs. Hyperlipidemia 11720299 E78.49 Continue atorvastat in 40 mg qd.Monitor labs as outpt. Mixed anxi ety and depressive disorder 552964028 F41.8 Continue bupropion ER 100 mg qd, Buspar 5 mg TID, clonidine 0.1 m BID, and trazodone 100 mg qhs,lexapr o 10 mg daily and hydroxyzin e 10 mg qdMonitor mood.Psych consult prn. Restless legs 80906849 G 25.81 Continue requip 0.25 mg qhs.Monito r sxs. Mixed urin laura incontinence 750368534 N39.46 Continue estring 2 mg q 3 monthsMoni tor urinary function.F /U with uro prn. Acute urin laura tract infection 794784775 N39.0 completed abxencoura ged to have increased water consumptio n to flush out toxins Hypokalemia 23452245 E87 .6 subtle at 3.1will replete with kcl 20 meq times 2 daysmonito r for associated sx (weakness, cramping, twitching) patient to notify nursing staff with sx [id number] [facility] [address] [address] 05/09/2024 11:39:53 05/10/2024 13:50:01 Pain of shoulder region 56749519 M25.519 see HPInon traumatic right shoulder painGive now dose for tramadol 50 mg then tramadol 50 mg Q6 prnschedul e tylenol 1 g TIDxray 3 viewscan apply ice for pain or heat for comfort [id number] RE[facility] [address] [place] [address] 05/19/2024 09:40:12 05/23/2024 12:46:45 Pain of shoulder region 39782375 M25.519 non traumatic right shoulder pain-xray negative for any acute findings.c ontinue tramadol 50 mg Q6 prnschedul e tylenol 1 g TID [id number] [facility] [address] [address] 06/16/2024 08:41:53 06/22/2024 12:46:48 Diplopia 67820600 H53.2 intermitte nt12/4 opthamolog y exam showed esophoria at distance , divergence insufficie ncy can be neurologic al neurology consult recommende d, otherwise follow up in 1 year. Impaired cognition 25377 6002 R41.89 Continue supportive care, expect decline.HC P invokedcon tinue to monitor mood and behaviors with recent med changes Essential hypertension 49262267 I10 Continue bisoprolol 2.5 mg qd, lasix 20 mg qd, losartan 25 mg qd. amlodipine 5 mg qd and clonidine 0.1 mg BID.Monito r BP and labs. Congestive heart failure 47674166 I50.22 euvolemic. she has been stableCont inue [...] bleeding risk. Chronic ob structive pulmonary disease 15802741 J43.8 Continue Advair 100/25 mcg BID and albuterol MDI 2 puffs q 4 hrs prn.Monito r resp. status. Osteoporosis 80387424 M8 1.0 Continue cholecalci ferol 2000 IU qd, calcium 500 mg BID, and risedronat e 35 mg weeklyMoni tor as outpt. Gastroesop hageal reflux disease without esophagitis 130891602 K21.9 tolerating a regular diet, no reported GI upsetpanto prazole discontinu ed due to QTc Hyperlipidemia 72201540 E78.49 Continue atorvastat in 40 mg qd.Monitor labs as outpt. Mixed anxi ety and depressive disorder 303927380 F41.8 nursing reports daily anxiety, currently on [...] in place of hydroxyzin e Restless legs 39355696 G 25.81 Continue requip 0.25 mg qhs.Monito r sxs. Mixed urin laura incontinence 502713528 N39.46 Continue estring 2 mg q 3 monthsMoni tor urinary function.F /U with uro prn. [id number] [facility] [address] [facility] [address] 06/20/2024 10:53:20 06/21/2024 14:19:17 Diplopia 15675850 H53.2 intermitte nt12/4 opthamolog y exam showed esophoria at distance , divergence insufficie ncy can be neurologic al neurology consult recommende d, otherwise follow up in 1 year.she will discuss with family Mixed anxi ety and depressive disorder 457098851 F41.8 nursing reports daily anxiety, currently on [...] palpitatio n etc.repeat ekg in 1 week [id number] [facility] [address] [place] [address] 07/01/2024 08:22:16 07/04/2024 15:48:50 Respiratory tract congestion and cough 864089702 R05.9 non productive chest xray complete:T he lung johansen are clear without mass, infiltrate , congestion , or effusion. SARS-CoV-2 379847093 U07 .1 07/01 positive teststart Molnupirav ir 800 mg BID for 5 dayscontin ue supportive therapy with oxygen prnisolati on precaution [id number] SUYAPAADELSO FREEMAN[address] [address] 07/04/2024 09:57:50 07/05/2024 09:55:44 Respiratory tract congestion and cough 807312361 R05.9 no cough appreciate d on exam SARS-CoV-2 809366637 U07 .1 07/01 positive testcopnti nue Molnupirav ir 800 mg BID for 5 dayscontin ue supportive therapy with oxygen prnisolati on precaution [id number] [facility] [address] [place] [address] 10/09/2024 10:55:30 10/13/2024 16:07:53 Mixed anxiety and depressive disorder 433519712 F41.8 stablecont inue escitalopr am, BusPIRone and trazodone Impaired cognition 40801 6002 R41.89 Continue supportive care, expect decline.HC P invokedcon tinue to monitor mood and behaviors with recent med changes Essential hypertension 66812591 I10 stableCont inue bisoprolol 2.5 mg qd, lasix 20 mg qd, losartan 25 mg qd. amlodipine 5 mg qd and clonidine 0.1 mg BID.Monito r BP and labs. Congestive heart failure 44909607 I50.22 euvolemic. stableCont inue bisoprolol 2.5 mg qd, lasix 20 mg qd and losartan 25 mg qd.Monitor resp. status, fluid status, wts and labs. Atrial fibrillation 4943 6004 I48.0 stablerate controlled cont amiodarone to 100 mg qdContinue eliquis 5 mg BID for AC.Monitor HR and bleeding risk. Chronic ob structive pulmonary disease 50161502 J43.8 stableCont inue Advair 100/25 mcg BID and albuterol MDI 2 puffs q 4 hrs prn.Monito r resp. status. Gastroesop hageal reflux disease without esophagitis 477037225 K21.9 stabletole rating a regular diet, no reported GI upsetpanto prazole discontinu ed due to QTc Hyperlipidemia 84657289 E78.49 Continue atorvastat in 40 mg qd.Monitor labs as outpt. [id number] Abhi Erickson [facility] [address] [place] [address] 10/12/2024 11:19:17 10/14/2024 08:28:33 Impaired cognition 083670126 R41.89 baseline impaired cognitionH CP invokedmon itor for behaviorsp sych eval prn Pruritic rash 17042669 L 28.2 eschar x 2 present left wristdoes not appear infectedsu rrounding pruritisat arax 25 mg q 8 prnmonitor for effect [id number] Abhi Erickson MD [facility] IK[facility] [address] [place] [address] 10/24/2024 12:55:25 10/26/2024 11:39:25 Thrombocytosis 0262201 D75.839 D75.838 acute thrombocyt osisrepeat stat cbc to recheck plt levelif remains elevated will starthydre a 1000 mg qd and request heme consult Leukocytosis 889811877 D 72.829 see above Impaired cognition 25006 6002 R41.89 baseline impaired cognitionH CP invokedcoo rdinate with HCP as needed for further workup [id number] DARVIN MARIE CNP [address] [address] 10/26/2024 12:10:11 11/01/2024 08:15:11 Thrombocytosis 3962379 D75.839 D75.838 acute thrombocyt osisimprov ing with hydrea 1000 mg daily.repe at stat cbc to recheck plt level next week.if remains elevated will startconti nue hydrea 1000 mg dialy and will request heme consult Leukocytosis 713051238 D 72.829 improving. see above Impaired cognition 85425 6002 R41.89 baseline impaired cognitionH CP invokedcoo rdinate with HCP as needed for further workup Health Concerns Section Related Observation LastModified by Organization Detai ls LastModified Time None Recorded Concern Status LastModified by Organization Details LastModified Time None Recorded Advance Directives Directive Y: Payers Encounter Date Sequence Insurance Name Policy Number Policy Burdick Covered Member ID Burdick Member ID Guarantor Name 07/04/2024 1 [place]: [facility] Hillary A [place] [id number] Hillary [place] 07/04/2024 2 () Hillary Naila [id number] Hillary Naila 10/09/2024 1 [place] [facility] Hillary A [place] [id number] Hillary [place] 10/09/2024 2 () Hillary Naila [id number] Hillary [place] 10/12/2024 1 [place] [facility] Hillary A [place] [id number] Hillary [place] [employer] [place] 10/12/2024 2 () Hillary Naila [id number] Hillary [place] [employer] [place] 10/24/2024 1 [place] [facility] Hillary A [place] [id number] Hillary [place] [employer] [place] 10/24/2024 2 () Hillary [place] [id number] Hillary [employer] [place] 10/26/2024 1 [place] [facility] Hillary A Naila [id number] Hillary [place] [employer] [place] 10/26/2024 2 () Hillary [place] [id number] Hillary Naila Notes Date Note Type Note Provider Name and Address Organization Details Recorded Time 07/04/2024 text/html Hillary is a [age] yr old LTC resident seen for acute rounding visit follow up for COVID. On exam she is alert and verbal, no resp. distress noted, breathing is easy and unlabored, LS CTA. VSS afebrile. There are no acute nursing concerns. past medical history that includes Afib, HTN, COPD,GERD, CHF, depression, cognitive changes,left femur and hematoma. SUYAPAADELSO FREEMANP [address], [address], [place], [address], [facility] 07/04/2024 12:33:28 10/09/2024 text/html Hillary is a [age] yr old LTC resident seen for routine rounding. She has been at her baseline in [facility]. no changes in appetite or elimination, there are no acute nursing concerns. followed by [facility] recently seen 09/05/24, for medication management. medication adjustment over the last 6 months effective. Nursing reports trend of decreased anxiety and agitation. REGI COL[facility]N [address], [address], [place], [address], [facility] 10/10/2024 09:47:38 10/12/2024 text/html Patient is a 74 yo female resident asked to eval for MD visit with pruritis left hand. Patient with dementia at baseline, brother in room helps with hx. Patient sitting in wheelchair in [facility]. Abhi Erickson MD [address] [facility], [address], [place], [address], [facility] 10/12/2024 11:58:18 10/24/2024 text/html Patient is a 74 yo female resident seen for acute rounding. CBC was ordered showing significant elevated of kex=4287 and mild elevation of WBC. Patient with baseline dementia lying in bed in [facility] Abhi Erickson MD [address] [facility], [address], [place], [address], [facility] 10/24/2024 13:06:12 10/26/2024 text/html Patient is a 74 yo female resident seen for acute rounding. CBC was ordered showing significant elevated of sqw=8218 and mild elevation of WBC on 10/24. Pt started hydrea 1000 mg daily. Repeat lab result reviewed today. Patient with baseline dementia lying in bed in [facility] DARVIN MARIE CNP [address], [address], [place], [address], [facility] 10/26/2024 12:27:33 OBGyn Episode No OBEpisode recorded.
--- OUTSIDE RECORDS SUMMARY | 2024-11-14 06:13 | XMS_ITS | Data Portability ---
Author Organization [place] - [facility] Address [address] [place] [address] Care Team Providers Care Shredded Filler Cigar Maker Machine Name Role Phone ANTON JEWELL Primary Care Provider ANTON JEWELL Referring Provider [phone] ANGE BARROW Primary Care Provider [phone] Assessment Encounter Date Assessment Date Assessment LastModified [...] & TFESI with 95% relief Physical Therapy: [facility] 04/2019 Surgeries: T11, L2, and [...] pain. I reviewed the MRI done at [facility] which shows a subacute T12 fracture below her previous T11 kyphoplasty and we will work to add her onto the schedule this week for T12 kyphoplasty plus or minus epidural injection. meriatta Not available 05/15/2020 13:17:03 05/17/2020 05/17/2020 Thoracic kyphoplasty Pre/postop diagnosis: 1. T12 katia fracture. 2. Thoracic pain and lumbar pain 3. Osteoporosis. Procedure: 1. C15tjfddktfeaw 2. L3-4 translaminar epidural injection Surgeon: Gorge [...] - Caudal SHOLA with conscious sedation 2019 [email or web address] Irene Chu MD, [address] [place] [address], [facility] [address], [address], 0 11:02:47 Surgeries kyphoplast y, thoracic (SURG) 2019 Gorge Edward MD, [address] [place] [address], [address], [place], [address], 0 13:47:09 Imaging None recorded. Medication Orders None recorded. Patient TargetsNo targets recorded. Patient InstructionsNo instructions recorded. Reason for Referral None Reported. Results Created Date Observation Date Name Description Value Unit Range Abnormal Flag Note LastModifiedBy Organization Detail LastModifiedTime 05/15/20 20 05/09/2020 MRI, thora cic spine , w/o contr ast No observ ation record ed. Not Available 09/2019 15:17:08 Result Notes None recorded. Problems Name Problem SNOMED Code Status Onset Date Resolution Date Notes Provider Name and Address Organization Details Recorded Time Low back pain 735901482 Active 2018 Meri Mejia null [place] - [facility] 9 10:19:48 Thoracic back pain 684355617 Active Shameka Myers null [place] - [facility] 9 09:43:28 Fracture of humerus 07761779 Active 2013 Spiral moderately displaced left humerus fracture. Roro hernandez [place] - [facility] 4 15:36:34 Problem Notes None recorded. Procedures Surgical History Date Name Laterality Status Provider Name and Address Organization Details Recorded Time 07/23/19 21 .Imaging Interpretation completed Sandra Hernández APRN-HAI [address] [place] [address],[address], [place], [address], [place] - [facility] 07/23/2020 08:53:37 05/23/20 20 .Imaging Interpretation completed RAFAL Perrin [address] [place] [address],[address], [place], [address], [place] - [facility] 05/23/2020 10:26:09 05/17/20 20 procedure completed Birgit Sanchez [place] - [facility] 05/17/2020 07:04:13 04/27/20 20 IM Injection Combo (Depo/Tor/Lido) completed IRENE KELLER MD [address] [place] [address],[address], [place], [address], [place] [facility] 04/27/2020 09:44:32 [...] 19 Back/Neck/Spine Surgery completed IRENE KELLER MD [address] [place] [address],[address], [place], [address], [place] [facility] 03/03/2019 11:01:38 10/20/19 19 .Imaging Interpretation completed SAMSON SIERRA [address] [place] [address],[address], [place], [address], [facility] - [facility] 10/19/2018 10:04:13 09/28/19 19 Back/Neck/Spine Surgery completed Lennox Bullock [place] - [facility] 09/27/2018 09:34:37 09/23/19 19 .Imaging Interpretation completed SAMSON IBARRA [address] [place] [address],[address], [place], [address], [facility] - [facility] 09/24/2018 09:28:41 12/19/19 18 Other completed SAMSON IBARRA [address] [place] [address],[address], [place], [address], [facility] - [facility] 09/24/2018 09:10:58 06/01/20 07 procedure on knee completed SAMSON IBARRA [address] [place] [address],[address], [place], [address], [facility] - [facility] 09/24/2018 09:09:13 07/13/19 00 Other completed SAMSON IBARRA [address] [place] [address],[address], [place], [address], [facility] - [facility] 09/24/2018 09:08:49 Gastric Bypass completed Michelle Perez [place] - [facility] 12/12/2013 15:55:51 Imaging Results Imaging Date Name Status LastModified by Organiz ation Details LastModified Time 05/09/2020 MRI, thoracic spine, w/o contrast completed [email or web address] Information not available 05/15/2020 15:17:08 Procedure Notes [...] 10 189 mm[Hg] 97 mm[Hg] Corrie Greenwood [facility] 0 09:20:59 Date Recorded Body height Provider Name an d Address Organization Details Last Updated DateTime 05/15/2020 170.18 cm Gorge turner MD [address] [facility],[address], [place], [address], [facility] 05/15/2020 13:18:58 Date Recorded Body height Body temperature Body mass index (BMI) Body weight Pain severity - 0-10 verbal numeric rating [Score] - Reported Respiratory rate Oxygen saturation Oxygen saturation in Arterial blood by Pulse oximetry Heart rate Systolic blood pressure Diastolic blood pressure Provider Name and Address Organization Details Last Updated DateTime 0 170.18 cm 98.1 [degF] 26.5 kg/m2 37205.1 1 g 9 16 /min 97 % 97 % 92 /min 170 mm[Hg] 100 mm[Hg] Birgit Sanchez [facility] 0 07:03:28 Date Recorded Body height Body [...] /min 174 mm[Hg] 93 mm[Hg] Suzi Marshall [facility] 0 08:50:28 Date Recorded Body height Body temperature Oxygen saturation Oxygen saturation in Arterial blood by Pulse oximetry Heart rate Body mass index (BMI) Body weight Systolic blood pressure Diastolic blood pressure Provider Name and Address Organization Details Last Updated DateTime 1 170.18 cm 97.4 [degF] 98 % 98 % 90 /min 26.3 kg/m2 48448.5 2 g 150 mm[Hg] 95 mm[Hg] Lu MARTINEZ [place] - [facility] 1 08:27:49 Social History Question Answer Notes LastModified by Organizat ion Details LastModified Time Tobacco Smoking Status Current Every Day Smoker Not Available [facility] 05/15/2020 03:44:21 What Is Your Level Of Alcohol Consumption? None [id number] Information not available 05/15/2020 Are You Blind Or Do You Have Difficulty Seeing? No [id number] Information not available 05/15/2020 In The 14 Days Before Symptom Onset, Have You Had Close Contact With A Laboratory-confir med COVID-19 While That Case Was Ill? No [id number] Information not available 05/15/2020 If Patient Spent Time In [facility] - Does The Patient Live In [facility]? No [facility] Information not available 11/01/2019 In The 14 Days Before Symptom Onset, Have You Had Close Contact With A Person Who Is Under Investigation For COVID-19 While That Person Was Ill? No [id number] Information not available 05/15/2020 In The 14 Days Before Symptom Onset, Did The Patient Spend Time In [facility]? No [facility] Information not available 11/01/2019 Have You Been To An Area Known To Be High Risk For COVID-19? No [id number] Information not available 05/15/2020 Are You Currently Employed? No [id number] Information not available 05/15/2020 Are You Deaf Or Do You Have Serious Difficulty Hearing? No [id number] Information not available 05/15/2020 Which Of Your Hands Is Dominant? Right [id number] Information not available 05/15/2020 Systems Integration Engineer? No Information no t available 12/12/2013 Senior Qa Analyst? No Information no t available 12/12/2013 Marital Status Unknown Informatio n not available 12/12/2013 What Was The Date Of Your Most Recent Tobacco Screening? 02/02/2019 [id number] Information not available 05/15/2020 How Much Tobacco Do You Smoke? No Pt States She Is Smoking Roughly About 4 Cigs A Day [id number] Information not available 05/15/2020 Do You Use Any Illicit Or Recreational Drugs? No [id number] Information not available 05/15/2020 Sex: Unknown Functional Status Question Answer Note LastModified by Organization D etails LastModified Time Do you have difficulty walking or climbing stairs? Yes [id number] Information not available 05/15/2020 Do you have difficulty doing errands alone? No [id number] Information not available 05/15/2020 Do you have difficulty dressing or bathing? No [id number] Information not available 05/15/2020 Mental Status Question Answer Note LastModified by Organization D etails LastModified Time Do you have difficulty concentrating, remembering or making decisions? No [id number] Information no t available 05/15/2020 Family History [...] Migraines N Angina N Thyroid Problems N Alzheimers N Brain Tumors N DVT N ADD/ADHD N Neck Pain N Anemia N Thyroid Disease Hypo/Hyper N Multiple Sclerosis N Back Pain N Brain Injury N Do you use a C-pap machine? N Heart Attack ([place]) N Mental Illness N Extreme Weight Loss [...] Code Diagnosis ICD10 Code Diagnosis Note 1337 Raphael Flaherty MD [facility] [address] [facility] [place] [address] 12/22/2013 09:12:20 12/26/2013 15:30:27 Fracture of humerus 78161258 [id number] Gorge Edward MD [facility] Main [address] [place] [address],[address] [place] [address] 09/22/2018 07:29:35 09/22/2018 17:05:27 Low back pain 252712575 M54.5 Lumbar radiculopathy 128 167191 M54.16 [id number] Gorge Edward MD [facility] Main [address] [place] [address],[address] [place] [address] 09/24/2018 08:57:30 09/24/2018 09:40:12 Low back pain 564641915 M54.5 multiple compressio n fractures, T and L spine Posterior compartment low back pain 226269926 M54.5 Thoracic back pain 20647 8004 M54.6 Lumbar radiculopathy 128 516550 M54.16 [id number] Gorge Edward MD [facility] Procedure Room [address] [place] [address],[address] [place] [address] 09/27/2018 09:10:21 09/27/2018 13:02:13 [id number] SAMSON SIERRA [facility] Main [address] [place] [address],[address] [place] [address] 10/05/2018 08:52:26 10/05/2018 10:09:33 Low back pain 989103941 M54.5 Lumbar radiculopathy 128 637581 M54.16 Thoracic back pain 02643 8004 M54.6 [id number] SAMSON SIERRA [address] [place] [address] 10/19/2018 08:03:21 10/19/2018 09:03:49 Low back pain 888143017 M54.5 Lumbar radiculopathy 128 028967 M54.16 [id number] SAMSON SIERRA [address] [place] [address] 11/11/2018 07:48:23 11/11/2018 08:54:35 Low back pain 423854989 M54.5 Lumbar radiculopathy 128 M54.16 [id number] SAMSON SIERRA [address] [place] [address] 02/02/2019 09:47:51 02/02/2019 10:19:11 Low back pain 256950031 M54.5 Lumbar radiculopathy 128 M54.16 [id number] IRENE KELLER MD [facility] Procedure Room [address] [place], [place] [address] [address] [address] 03/03/2019 08:06:43 03/03/2019 09:56:40 Chronic low back pain 750084990 M54.5 Lumbar radiculopathy 128 M54.16 [id number] IRENE KELLER MD [address] [place] [address] 03/28/2019 09:17:16 03/28/2019 09:46:36 Chronic low back pain 573021983 M54.5 Lumbar radiculopathy 128 M54.16 [id number] IRENE KELLER MD [address] [place] [address] 06/13/2019 07:58:13 06/13/2019 08:29:06 Low back pain 117488329 M54.5 Lumbar radiculopathy 128 M54.16 [id number] IRENE KELLER MD [facility] Procedure Room [address] [place] [address],[address] [place] [address] 07/08/2019 12:43:24 07/08/2019 14:17:51 Chronic low back pain 874855430 M54.5 Lumbar radiculopathy 128 761663 M54.16 [id number] IRENE KELLER MD [facility] Main [address] [place], [place] [address] [place] [address] 1 07/21/2019 08:23:30 07/21/2019 09:26:44 Chronic low back pain 320662849 M54.5 Lumbar radiculopathy 128 509453 M54.16 [id number] IRENE KELLER MD [facility] Main [address] [place] [address],[address] [place] [address] 1 08/16/2019 08:07:07 08/16/2019 10:35:00 Low back pain 952321939 M54.5 Lumbar radiculopathy 128 M54.16 [id number] IRENE KELLER MD [facility] Procedure Room [address] [place], [place] [address] [place] [address] 1 09/19/2019 07:47:43 09/19/2019 09:18:26 Lumbar radiculopathy 173087908 M54.16 Chronic low back pain 27 2724297 M54.5 [id number] IRENE KELLER MD [facility] Main [address] [place], [place] [address] [place] [address] 1 11/01/2019 10:01:27 11/01/2019 10:41:04 Low back pain 683538334 M54.5 Arthropath y of lumbar facet joint 457775702 M46.96 [id number] IRENE KELLER MD [facility] Procedure Room [address] [place] [address],[address] [place] [address] 1 12/21/2019 08:22:02 12/21/2019 10:27:45 Chronic low back pain 409751087 M54.5 Arthropath y of lumbar facet joint 809573968 M46.96 [id number] IRENE KELLER MD [address] [place] [address] 1 12/23/2019 08:26:03 12/23/2019 08:57:38 Low back pain 326933238 M54.5 Arthropath y of lumbar facet joint 762565270 M46.96 [id number] IRENE KELLER MD [facility] Procedure Room [address] [place] [address] 1 02/08/2020 08:02:29 02/08/2020 09:15:40 Chronic low back pain 423814111 M54.5 Arthropath y of lumbar facet joint 707725954 M46.96 [id number] IRENE KELLER MD [place] [address] 1 02/10/2020 11:27:45 02/10/2020 12:25:15 Low back pain 627186116 M54.5 Arthropath y of lumbar facet joint 569707147 M46.96 [id number] IRENE KELLER MD [facility] Procedure Room [address] [place] [address] 1 04/04/2020 07:25:19 04/04/2020 10:37:27 Chronic low back pain 549171005 M54.5 Arthropath y of lumbar facet joint 338071712 M46.96 [id number] IRENE KELLER MD [address] [place] [address] 04/27/2020 09:01:48 04/27/2020 09:47:44 Low back pain 729850567 M54.5 Lumbar radiculopathy 128 010795 M54.16 [id number] Gorge Edward MD [address] [place] [address] 1 05/15/2020 13:15:42 05/15/2020 14:06:11 Compression fracture of thoracic vertebra 0348966381 104 M48.54XG T-11&L-4 (same bottle) [id number] Gorge Edward MD [facility] Procedure Room [address] [facility] [place] [address] 05/17/2020 06:51:44 05/18/2020 10:14:45 [id number] Sandra Hernández, ABRASIVE MIXER-PROGRAM PLANNER [facility] Main [address] [facility],[address] [place] [address] 05/23/2020 08:42:26 05/23/2020 09:10:42 Low back pain 884989391 M54.5 Thoracic back pain 87299 8004 M54.6 Wedge frac ture of thoracic vertebra 729393129 S22.000D T12 [id number] Gorge Edward MD [facility] Main [address] [facility] [place] [address] 07/23/2020 08:08:02 07/23/2020 08:53:22 Low back pain 611083530 M54.5 Thoracic back pain 98074 8004 M54.6 Health Concerns Section Related Observation LastModified by Organization Detai ls LastModified Time None Recorded Concern Status LastModified by Organization Details LastModified Time None Recorded Advance Directives Directive None Recorded Payers Encounter Date Sequence Insurance Name Policy Number Policy Burdick Covered Member ID Burdick Member ID Guarantor Name 04/27/2020 1 [place] Hillary A Pierre Part [id number] Hillary A Pierre Part 04/27/2020 2 [facility] (MEDICARE SUPPLEMENT) Hillary A Pierre Part [id number] Hillary A Pierre Part 05/15/2020 1 [place] Hillary A Naila [id number] Hillary A Naila 05/15/2020 2 [facility] (MEDICARE SUPPLEMENT) Hillary A Naila [id number] Hillary A Naila 05/17/2020 1 [place] Hillary A Pierre Part [id number] Hillary A Naila 05/17/2020 2 [facility] (MEDICARE SUPPLEMENT) Hillary A Pierre Part [id number] Hillary Turner Pierre Part 05/23/2020 1 [place] Hillary Turner Naila [id number] Hillary A Pierre Part 05/23/2020 2 [facility] (MEDICARE SUPPLEMENT) Hillary Turner Pierre Part [id number] Hillary Turner Naila 07/23/2020 1 [place] Hillary Turner Naila [id number] Hillary Turner Pierre Part 07/23/2020 2 [facility] (MEDICARE SUPPLEMENT) Hillary Turner Naila [id number] Hillary Turner Pierre Part Notes Date Note Type Note Provider Name [...] physical therapy for her balance. She attended [facility] last in 2018. She completed six [...] MD [address] [facility],[address], [place], [address], [facility] 04/27/2020 10:09:15 05/23/2020 text/html 70-year-old fema [...] chest pain no fever chills RAFAL Perrin [address] [facility],[address], [place], [address], [facility] 05/23/2020 10:31:13 07/23/2020 text/html 70-year-old fema [...] Perrin [address] [facility],[address], [place], [address], [facility] - [facility] 07/23/2020 08:54:39 OBGyn Episode No OBEpisode recorded.
--- OUTSIDE RECORDS SUMMARY | 2024-11-14 06:13 | XMS_ITS | Data Portability ---
Author Organization [place] - [facility], [facility] Address [address] [place] [address] Care Team Providers Care Hospice Care Consultant Name Role Phone ALONSO ANDINO Primary [...] note she recently moved up here from [place] to move into an [facility]. She is not a great historian. She gives me a med list with only a few medicines however she has pill packs from [place] that are totally different medicines that her [...] James agree and recc emeregent eval at [facility] PE - no s/s DVT< [...] Was able to discuss w/ PCP from [place] Dr Andino office who was only able to give me limited information and confirm she has seen cardiology in the past. Dr Mcarthur in [place] is commission agent livestock, I did have their number but I [...] off to Ayad Vaz. Expect called to [facility] w/ very thorough reasons for escalation adn I was thanked for this level of detail. I did pass along pt PCP names and specialist names I had from [place]. Pt is on agreement and verbalizes understanding [...] diogr am No observ ation record ed. [email or web address] Not Available 10:31:15 Result Notes None recorded. Procedures Surgical History Date Name Laterality Status Provider Name and Address Organization Details Recorded Time Medication Review completed SAMSON Hadley, [place], [address], [place] - [facility] 05/27/2022 10:20:35 ECG Interpretation - [place], [address], [place] [facility] 05/27/2022 10:23:27 Cataract Surgery completed SAMSON Avila [address], [place], [address], [place] [facility] 05/27/2022 09:22:29 bypass of stomach completed SAMSON Landers [address], [place], [address], [place] [facility] 05/27/2022 09:22:41 Imaging Results Imaging Date Name Status LastModified by Organization Details LastModified Time 06/27/2022 electrocardiogram completed [email or web address] Infor mation not available 11/02/2023 10:31:15 Procedure [...] Former Smoker SAMSON Hadley [address], [place], [address], [place] [facility] 05/27/2022 09:22:59 What Is [...] CHF N Parkinson's Disease N Cancer N Dementia N Stroke N COPD N Depression N Hypothyroidism N Asthma N High Cholesterol N Rheumatoid Arthritis N Pulmonary Embolism N Hypertension Y A-fib N Osteoporosis N Kidney Disease N Gynecological HistoryNo gynecological history recorded. Obstetrics History GPAL:G 0 P 0 0 0 0 Past Encounters Encounter ID Performer Location Encounter Start Date Encounter Closed Date Diagnosis/Indication Diagnosis SNOMED-CT Code Diagnosis ICD10 Code Diagnosis Note [id number] SAMSON Eli [facility] [address] [place] [address] 05/27/2022 08:28:33 05/28/2022 15:07:31 Tachycardia 2037931 R00.0 Community acquired pneumonia 069432522 J18.9 Irregular heart beat 361 659059 R00.8 Health Concerns Section Related Observation LastModified by Organization Detai ls LastModified Time None Recorded Concern Status LastModified by Organization Details LastModified Time None Recorded Advance Directives Directive None Recorded Payers Encounter Date Sequence Insurance Name Policy Number Policy Burdick Covered Member ID Burdick Member ID Guarantor Name 05/27/2022 1 [place]: [employer] Hillary Pena [place] [id number] Hillary [place] 05/27/2022 2 CHRISTOPHER (CHRISTOPHER) Hillary Naila [id number] Hillary [place] Notes Date Note Type Note Provider Name [...] note she recently moved up here from [place] to move into an [facility]. She is not a great historian. She gives me a med list with only a few medicines however she has pill packs from [place] that are totally different medicines that her [...] sxs today. SAMSON Hadley [address], [place], [address], [place] [facility] 05/27/2022 10:31:24 OBGyn Episode No OBEpisode recorded.
[2024-11-14 06:14] LABS: MANUAL DIFF FLAG NO
[2024-11-14 06:53] LABS: Alanine Aminotransferase 21 U/L (0-31); Albumin Level 3.1 g/dL (3.5-5.0); Alkaline Phosphatase 67 U/L (39-117); Anion Gap 11 (12-20); Aspartate Amino Transferase 24 U/L (5-31); Bilirubin Total 0.4 mg/dL (0.0-1.0); Blood Urea Nitrogen 19 mg/dL (9-16); Calcium 8.5 mg/dL (8.4-10.2); Carbon Dioxide 24 mmol/L (22-29); Chloride 108 mmol/L (96-108); Cholesterol 93 mg/dL (<200); Estimated Glomerular Filt Rate > 60; Glucose Random 108 mg/dL (60-115); HDL Cholesterol 39 mg/dL (>40); LDL Cholesterol Calculated 44 mg/dL (<100); Potassium 3.8 mmol/L (3.3-5.1); Sodium 139 mmol/L (135-145); Total Protein 5.5 g/dL (6.5-8.0); Triglycerides 52 mg/dL (<150)
[2024-11-14 07:08] LABS: Thyroid Stimulating Hormone 0.91 uIU/mL (0.32-4.0)
[2024-11-14 07:12] LABS: Basophils Absolute Auto 0.1 X10*3/uL (0.0-0.2); Basophils Percent Auto 2.7 % (0-2); Eosinophils Absolute Auto 0.1 X10*3/uL (0.0-0.4); Eosinophils Percent Auto 3.5 % (0-4); Hematocrit 35.3 % (37.0-47.0); Imm Gran Abs Auto 0.03 X10*3/uL (0.00-0.03); Imm Gran Pct Auto 0.7 % (0.0-0.4); Lymphocytes Absolute Auto 1.3 X10*3/uL (1.2-4.9); Lymphocytes Percent Auto 32.1 % (20-40); Mean Corpuscular HGB Conc 31.2 g/dl (31.0-35.0); Mean Corpuscular Hemoglobin 24.4 pg (27.0-33.0); Mean Corpuscular Volume 78.4 fL (80.0-98.0); Mean Platelet Volume 10.7 fL (9.4-12.3); Monocytes Absolute Auto 0.3 X10*3/uL (0.1-1.2); Monocytes Percent Auto 7.2 % (2-11); Neutrophils Absolute Auto 2.2 x10*3/uL (2.0-8.3); Neutrophils Percent Auto 53.8 % (45-73); Platelet Count 300 X10*3/uL (160-400); Red Cell Distribution Width 20.7 % (11.0-16.0); White Blood Count 4.1 X10*3/uL (4.8-10.8)
== END 2024-11-14 06:09 | disposition home or self-care (01) ==
LOC: HO.MMNH3L 06:08
PROVIDERS: Visit Provider Family Medicine
DX: J44.9 Chronic obstructive pulmonary disease, unspecified (principal); Z13.6 Encounter for screening for cardiovascular disorders
CPT/HCPCS: 36415; 80053; 80061; 84443; 85025

== ENCOUNTER 2025-01-09 06:37 | Outpatient (REF) | payer MEDICARE, MEDICAID, SELFPAY ==
[2025-01-09 06:38] LABS: MANUAL DIFF FLAG NO
--- OUTSIDE RECORDS SUMMARY | 2025-01-09 06:39 | XMS_ITS | Clinical Summary ---
Author Organization [facility] Address [address] [facility] [address] [place] [address] Phone Care Team Providers Care Restaurant Associate Name Role Phone Unavailable Primary Care Provider [...] complete this topic Insurance Medicare Spina Bifida ([id number]) Medicare Spina Bifida ([id number])
[2025-01-09 07:23] LABS: Basophils Absolute Auto 0.1 X10*3/uL (0.0-0.2); Basophils Percent Auto 1.4 % (0-2); Eosinophils Absolute Auto 0.1 X10*3/uL (0.0-0.4); Eosinophils Percent Auto 1.3 % (0-4); Hematocrit 38.2 % (37.0-47.0); Hemoglobin 11.9 g/dl (12.0-16.0); Imm Gran Pct Auto 1.2 % (0.0-0.4); Lymphocytes Absolute Auto 1.5 X10*3/uL (1.2-4.9); Lymphocytes Percent Auto 17.7 % (20-40); Mean Corpuscular HGB Conc 31.2 g/dl (31.0-35.0); Mean Corpuscular Hemoglobin 26.9 pg (27.0-33.0); Mean Corpuscular Volume 86.4 fL (80.0-98.0); Mean Platelet Volume 11.2 fL (9.4-12.3); Monocytes Absolute Auto 0.6 X10*3/uL (0.1-1.2); Monocytes Percent Auto 6.6 % (2-11); Neutrophils Absolute Auto 6.2 x10*3/uL (2.0-8.3); Neutrophils Percent Auto 71.8 % (45-73); Platelet Count 560 X10*3/uL (160-400); Red Blood Count 4.42 X10*6/uL (4.20-5.50); Red Cell Distribution Width 22.9 % (11.0-16.0); White Blood Count 8.6 X10*3/uL (4.8-10.8)
[2025-01-09 07:47] LABS: Alanine Aminotransferase 26 U/L (0-31); Albumin Level 3.6 g/dL (3.5-5.0); Alkaline Phosphatase 80 U/L (39-117); Anion Gap 12 (12-20); Aspartate Amino Transferase 23 U/L (5-31); Bilirubin Total 0.4 mg/dL (0.0-1.0); Blood Urea Nitrogen 19 mg/dL (9-16); Calcium 8.7 mg/dL (8.4-10.2); Carbon Dioxide 24 mmol/L (22-29); Chloride 110 mmol/L (96-108); Cholesterol 93 mg/dL (<200); Estimated Glomerular Filt Rate 55; Glucose Random 109 mg/dL (60-115); HDL Cholesterol 39 mg/dL (>40); LDL Cholesterol Calculated 47 mg/dL (<100); Potassium 4.2 mmol/L (3.3-5.1); Sodium 142 mmol/L (135-145); Total Protein 6.2 g/dL (6.5-8.0); Triglycerides 38 mg/dL (<150)
[2025-01-09 08:02] LABS: Thyroid Stimulating Hormone 1.52 uIU/mL (0.32-4.0)
== END 2025-01-09 06:38 | disposition home or self-care (01) ==
LOC: HO.MMNH3L 06:37
PROVIDERS: Visit Provider Family Medicine
DX: I10 Essential (primary) hypertension (principal); I48.0 Paroxysmal atrial fibrillation
CPT/HCPCS: 36415; 80053; 80061; 84443; 85025

== ENCOUNTER 2025-02-24 06:37 | Outpatient (REF) | payer MEDICARE, MEDICAID, SELFPAY ==
--- OUTSIDE RECORDS SUMMARY | 2025-02-24 06:39 | XMS_ITS | Clinical Summary ---
Author Organization [facility] Address [address] [facility] [address] [place] [address] Phone Care Team Providers Care Office Assistant Receptionist Name Role Phone Unavailable Primary Care Provider [...] of 2 - PCV) 1969 Influenza Vaccine (#1) 2025 Hepatitis B Vaccine Aged Out No longe r eligible based on patient's age to complete this topic Insurance Medicare Spina Bifida ([id number]) Medicare Spina Bifida (58200)
[2025-02-24 06:51] LABS: MANUAL DIFF FLAG NO
[2025-02-24 06:54] LABS: Hematocrit 38.1 % (37.0-47.0); Hemoglobin 11.5 g/dl (12.0-16.0); Imm Gran Abs Auto 0.08 X10*3/uL (0.00-0.03); Imm Gran Pct Auto 0.9 % (0.0-0.4); Lymphocytes Absolute Auto 1.6 X10*3/uL (1.2-4.9); Mean Corpuscular HGB Conc 30.2 g/dl (31.0-35.0); Mean Corpuscular Hemoglobin 26.5 pg (27.0-33.0); Mean Corpuscular Volume 87.8 fL (80.0-98.0); NRBC Abs Auto 0.000 X10*3/uL (0.0-0.012); NRBC Pct Auto 0.0 /100WBC (0.0-0.2); Platelet Count 877 X10*3/uL (160-400); Red Blood Count 4.34 X10*6/uL (4.20-5.50); White Blood Count 8.5 X10*3/uL (4.8-10.8)
[2025-02-24 07:12] LABS: Alanine Aminotransferase 16 U/L (0-31); Albumin Level 3.2 g/dL (3.5-5.0); Alkaline Phosphatase 83 U/L (39-117); Anion Gap 13 (12-20); Aspartate Amino Transferase 27 U/L (5-31); Blood Urea Nitrogen 18 mg/dL (9-16); Calcium 8.3 mg/dL (8.4-10.2); Carbon Dioxide 21 mmol/L (22-29); Chloride 109 mmol/L (96-108); Estimated Glomerular Filt Rate > 60; Potassium 3.8 mmol/L (3.3-5.1); Sodium 139 mmol/L (135-145); Total Protein 5.9 g/dL (6.5-8.0)
== END 2025-02-24 06:38 | disposition home or self-care (01) ==
LOC: HO.MMNH3L 06:37
PROVIDERS: Visit Provider Student in an Organized Health Care Education/Training Program
DX: K21.9 Gastro-esophageal reflux disease without esophagitis (principal); I50.20 Unspecified systolic (congestive) heart failure; J44.9 Chronic obstructive pulmonary disease, unspecified
CPT/HCPCS: 36415; 80053; 82248; 85025

== ENCOUNTER 2025-04-17 06:46 | Outpatient (REF) | payer MEDICARE, MEDICAID, SELFPAY ==
[2025-04-17 06:33] LABS: MANUAL DIFF FLAG NO
[2025-04-17 06:44] LABS: Hematocrit 37.0 % (37.0-47.0); Hemoglobin 11.4 g/dl (12.0-16.0); Imm Gran Abs Auto 0.09 X10*3/uL (0.00-0.03); Imm Gran Pct Auto 0.8 % (0.0-0.4); Lymphocytes Absolute Auto 1.9 X10*3/uL (1.2-4.9); Mean Corpuscular HGB Conc 30.8 g/dl (31.0-35.0); Mean Corpuscular Hemoglobin 24.0 pg (27.0-33.0); Mean Corpuscular Volume 77.9 fL (80.0-98.0); NRBC Abs Auto 0.000 X10*3/uL (0.0-0.012); NRBC Pct Auto 0.0 /100WBC (0.0-0.2); Red Blood Count 4.75 X10*6/uL (4.20-5.50); White Blood Count 11.2 X10*3/uL (4.8-10.8)
--- OUTSIDE RECORDS SUMMARY | 2025-04-17 07:02 | XMS_ITS | Data Portability ---
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 Na 139, K 3.8, Bun 19, Cr 0.79. 06/16: labs ordered for 06/20 bmp with magnesium level. Not available 11/16/2024 11:24:51 Plan of Treatment Reminders Order Date Submit [...] Address Organization Details Recorded Time Recurrent falls 128628255 Active 2022 JUAN MANUEL MORALES NP [address] , [address], [place], [address], [facility] [employer] 11:13:43 Osteoarthr itis 673882794 Active 2022 JUAN MANUEL MORALES NP [address], [address], [place], [address], [facility] 3 11:13:48 Chronic obstructiv e pulmonary disease 58607281 Active 2022 JUAN MANUEL MORALES NP [address], [address], [place], [address], [facility] 3 11:13:52 Gastroesop hageal reflux disease without esophagiti s 066803544 Active 2022 JUAN MANUEL MORALES NP [address], [address], [place], [address], [facility] 3 11:13:58 Congestive heart failure 33147337 Active 2022 JUAN MANUEL MORALES NP [address], [address], [place], [address], [facility] 3 11:14:03 Atrial fibrillati on 74323048 Active 2022 JUAN MANUEL MORALES NP [address], [address], [place], [address], [facility] 3 11:14:08 Hematoma of right thigh 070128163873 45662 Active 2022 JUAN MANUEL MORALES NP [address], [address], [place], [address], [facility] 3 11:14:21 Essential hypertensi on 53262945 Active 2022 JUAN MANUEL MORALES NP [address], [address], [place], [address], [facility] 3 11:40:46 Hyperlipid emia 26064269 Active 2022 JUAN MANUEL MORALES NP [address], [address], [place], [address], [facility] 3 11:41:07 Mixed anxiety and depressive disorder 567056779 Active 2022 JUAN MANUEL MORALES NP [address], [address], [place], [address], [place] [facility] 3 11:41:48 Impaired cognition 443907627 Active 2022 Sandra Morrison MD [address], [address], [place], [address], [facility] [employer] [facility] 3 01:04:56 Overactive urinary bladder 758864163 Active 2022 Sandra Morrison MD [address], [address], [place], [address], [facility] 3 01:13:05 Dry eyes 596014504 Active 2022 Sandra Morrison MD [address], [address], [place], [address], [facility] 3 01:14:09 Hematoma 597499953 Active 2022 left buttock JUAN MANUEL MORALES, TONY [address], [address], [place], [address], [facility] 3 13:03:34 Leukocytos is 627428384 Active 2023 JUAN MANUEL MORALES NP [address], [address], [place], [address], [facility] 4 12:21:55 Restless legs syndrome 57061706 Active 2023 Sandra Morrison MD [address], [address], [place], [address], [facility] 4 18:41:39 Mixed urinary incontinen ce 426561754 Active 2023 Sandra Morrison MD [address], [address], [place], [address], [facility] 4 18:42:46 Bacterial conjunctiv itis 358321095 Active 2023 REGI COLÓN [address], [address], [place], [address], [facility] 4 17:01:03 Thrombocyt osis 9190870 Active 2024 Abhi Erickson MD [address], [address], [place], [address], [facility] 13:01:15 Notes:Some problems listed i n Document: #[id number] could not be added to this patient's [...] lable Vitals Date Recorded Body height Systolic And Diastolic Provider Name and Address Organization Details Last Updated DateTime 10/24/2024 167.64 cm 140/80 mm[Hg] Abhi Erickson MD [address] [place] [address] [address], [place], [address], [facility] 10/24/2024 12:57:01 Date Recorded Body height Provider Name an d Address Organization Details Last Updated DateTime 01/18/2025 167.64 cm REGI COLÓN [address] [place] [address], [place], [address], [facility] 01/19/2025 18:53:56 Social History Question Answer Notes LastModified by Organizat ion Details LastModified Time Tobacco Smoking Status Former Smoker JUAN MANUEL MORALES NP [address] [place] [address], [place], [address], [facility] 08/08/2022 11:11:20 Do You Have An Advance Directive? Yes Information not available 08/11/2022 What Is Your Code Status? Full Code Information not available 08/11/2022 Where Do You Live? [facility], Previously Lived Alone, No Stairs Information not available 05/15/2023 Legal Guardian? 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 Yes Information not available 08/12/2022 What Was The Date Of Your Most Recent Tobacco Screening? 08/08/2022 Information not available 08/08/2022 Do You Have An Out Of Hospital DNR? No Information not available 08/12/2022 What Is Your Relationship Status? Information not available 10/07/2022 Has Tobacco Cessation Counseling Been Provided? No N/a As Pt No Longer Smokes Information not available 08/12/2022 Sex: Unknown Functional Status Question Answer Note LastModified by Organizat ion Details LastModified Time Do you use any illicit or recreational drugs? No Information not available 08/08/2022 Do you or have you ever used any other forms of tobacco or nicotine? No Information not available 08/12/2022 What is your level of alcohol consumption? None Information not available 08/08/2022 Mental Status None recorded. Family History Nothing Reported Notes:n/c Medical History No medical history recorded. Gynecological HistoryNo gynecological history recorded. Obstetrics History GPAL:G 0 P 0 0 0 0 Immunizations Vaccine Type Date Status Note Provider Nam e and Address Organization Details Recorded Time Influenza, adjuvanted, quadrivalent, PF 05/22/2022 completed Maryam hernandez [place] - [facility] 07/30/2023 12:41:28 Past Encounters Encounter ID Performer Location Encounter Start Date Encounter Closed Date Diagnosis/Indication Diagnosis SNOMED-CT Code Diagnosis ICD10 Code Diagnosis IMO Codes Diagnosis Note [id number] TONY ALMARAZ [address] [facility] [place] [address] 08/08/2022 09:43:58 08/12/2022 10:33:59 Recurrent falls 120061361 R29.6 PT OT eval and treatfall precaution sfrequent safety checks Hematoma o f right thigh 5467155209 4376139 S70.11XA change dressing per ordersmoni tor for increased swellingav oid further falls Atrial fibrillation 4943 6004 I48.91 amiodarone 200 mg dailyeiliq uis 5 mg bidbisopro lol 2.5 mg daily Chronic ob structive pulmonary disease 12067869 J44.9 albuterol inhaler q4hr prnadvair 100/25 daily Congestive heart failure 34959209 I50.9 lasix 20 mg dailylosar miller 25 mg daily Osteoarthritis 395922342 M19.90 cholecalci ferol 2000 dailyrisen dronate 35 weekly Gastroesop hageal reflux disease without esophagitis 610976665 K21.9 CaCarb 500 bidprotoni x 40 mg daily Essential hypertension 05067538 I10 amlodipine 5 mg dailycloni dine 0.1 mg q12 hr Hyperlipidemia 07667102 E78.5 atorvastat in 40 mg daily Mixed anxi ety and depressive disorder 406407888 F41.8 bupropion er 150 mg dailytrazo done 100 mg hs JUAN MANUEL MORALES NP [facility] [address] [place] [address] 08/11/2022 14:11:22 08/13/2022 13:57:19 Hematoma of right thigh 3329081755 5215316 S70.11XA change dressing per ordersmoni tor for increased swellingav oid further falls Congestive heart failure 14417426 I50.9 lasix 20 mg dailylosar miller 25 mg daily [id number] MD MARCIO Ramirez [address] [place] [address] 08/12/2022 17:25:40 08/18/2022 16:13:47 Hematoma of right thigh 0192504813 2453230 S70.11XD With minimal drainage from drains.Lik bruno will get removed at appt tomorrow.M onitor thigh for healing.Mo nitor CBC. Congestive heart failure 07691724 I50.22 Appears euvolemic. Continue bisoprolol 2.5 mg qd, lasix 20 mg qd and losartan 25 mg qd.Monitor resp. status, fluid status, wts and labs. Recurrent falls 52274387 2 R29.6 Very deconditio demetrius.Needs PT/OT for strengthen ing, balance, gait training, safety and function.C ontinue fall precaution s.Monitor for safety. Atrial fibrillation 4943 6004 I48.0 Rate in good control on meds as above and amiodarone 200 mg qd.Continu e eliquis 5 mg BID for AC.Monitor HR and bleeding risk. Chronic ob structive pulmonary disease 13429912 J43.8 At baseline.C ontinue Advair 100/25 mcg BID and albuterol MDI 2 puffs q 4 hrs prn.Monito r resp. status. Gastroesop hageal reflux disease without esophagitis 039702701 K21.9 No current sxs.Contin ue pantoprazo le 40 mg qd.Monitor sxs. Essential hypertension 76889960 I10 Systolic has been high periodical ly, likely due to pain.No change in meds for now.Contin ue meds as above and amlodipine 5 mg qd and clonidine 0.1 mg BID.Monito r BP and labs. Hyperlipidemia 19218332 E78.49 Continue atorvastat in 40 mg qd.Monitor labs as outpt. Mixed anxi ety and depressive disorder 905737302 F41.8 Mood ok tonight.Co ntinue bupropion ER 150 mg qd and trazodone 100 mg qhsMonitor mood.Psych consult prn. Osteoporosis 39677186 M8 1.0 Continue cholecalci ferol 2000 IU qd, calcium 500 mg BID, and risedronat e 35 mg weeklyMoni tor as outpt. [id number] TONY ALMARAZ [address] [place] [address] 08/14/2022 11:52:29 08/18/2022 16:23:58 Chronic obstructive pulmonary disease 86890767 J44.9 albuterol inhaler q4hr prnadvair 100/25 daily Congestive heart failure 34317132 I50.9 lasix 20 mg dailylosar miller 25 mg daily [id number] JUAN MANUEL MORALES NP [address] [address] 08/20/2022 13:24:34 08/22/2022 13:09:35 Chronic obstructive pulmonary disease 11295764 J43.8 albuterol inhaler q4hr prnadvair 100/25 daily Mixed anxi ety and depressive disorder 361586970 F41.8 bupropion er 150 mg dailytrazo done 100 mg hsmonitor and chart any changes in mood or behaviorsp sych prn [id number] [facility] [address] [place] [address] 08/27/2022 10:50:59 09/02/2022 10:27:22 Hematoma of right thigh 5936057168 7810489 S70.11XD change dressing per ordersmoni tor for increased swellingav oid further fallsWBAT Chronic ob structive pulmonary disease 46188591 J43.8 albuterol inhaler q4hr prnadvair 100/25 daily Recurrent falls 21610289 2 R29.6 PT OT eval and treatfall precaution sfrequent safety checks [id number] JUAN MANUEL TONY [facility]ORALES [facility] [address] [place] [address] 09/03/2022 10:52:54 09/05/2022 13:45:58 Chronic obstructive pulmonary disease 44367837 J43.8 albuterol inhaler q4hr prnadvair 100/25 daily Recurrent falls 04864191 2 R29.6 PT OT eval and treatfall precaution sfrequent safety checks [id number] JUAN MANUEL TONY MORALES [address] [address] 09/05/2022 10:51:26 09/09/2022 07:59:39 Recurrent falls 618531726 R29.6 PT OT eval and treatfall precaution sfrequent safety checks Hematoma o f right thigh 6020115559 1693492 S70.11XA change dressing per [facility] for increased swellingav oid further falls Atrial fibrillation 4943 6004 I48.91 amiodarone 200 mg dailyeiliq uis 5 mg bidbisopro lol 2.5 mg daily Chronic ob structive pulmonary disease 00283143 J44.9 albuterol inhaler q4hr prnadvair 100/25 daily Congestive heart failure 23314034 I50.9 lasix 20 mg dailylosar miller 25 mg daily Osteoarthritis 069292968 M19.90 cholecalci ferol 2000 dailyrisen dronate 35 weekly Gastroesop hageal reflux disease without esophagitis 081669008 K21.9 CaCarb 500 bidprotoni x 40 mg daily Essential hypertension 97621009 I10 amlodipine 5 mg dailycloni dine 0.1 mg q12 hr Hyperlipidemia 86432979 E78.5 atorvastat in 40 mg daily Mixed anxi ety and depressive disorder 104185179 F41.8 bupropion er 150 mg dailytrazo done 100 mg hs [id number] Sandra Morrison MD [facility] [address] [place] [address] 10/07/2022 18:29:02 10/10/2022 15:21:01 Abrasion and/or friction burn of back without infection 36691171 S30.810A With open abrasion.W ill use local care and protection with dressings and monitor sxs. Fall W18.39XA Pt. reminded to call for help when she wants to get up.Continu es to need PT/OT for strengthen ing, balance, gait training, safety and function.C ontinue fall precaution s.Monitor for safety. Essential hypertension 92574073 I10 Systolic was very high this AM, not rechecked since fall. Overall good recently.C ontinue bisoprolol 2.5 mg qd, lasix 20 mg qd, losartan 25 mg qd. amlodipine 5 mg qd and clonidine 0.1 mg BID.Monito r BP and labs. [id number] Sandra Morrison MD [address] [place] [address] 10/09/2022 13:55:48 10/14/2022 11:00:12 Abrasion and/or friction burn of back without infection 08952547 S30.810A Abrasion healing.Co ntinue local care and protection with dressings and monitor sxs. fall W18.39XA Fall 2 days ago.Contin ues to need PT/OT for strengthen ing, balance, gait training, safety and function.C ontinue fall precaution s.Monitor for safety. Essential hypertension 85087764 I10 Continues with intermitte nt elevated SBP, [...] and labs. Hematoma o f right thigh 9322741938 0175537 S70.11XD Healed.CBC stable. Congestive heart failure 21360845 I50.22 Continues to be euvolemic. Continue bisoprolol 2.5 mg qd, lasix 20 mg qd and losartan 25 mg qd.Monitor resp. status, fluid status, wts and labs. Atrial fibrillation 4943 6004 I48.0 Rate remains in good control on meds as above and amiodarone 200 mg qd.Continu e eliquis 5 mg BID for AC.Monitor HR and bleeding risk. Chronic ob structive pulmonary disease 13614263 J43.8 Continues at baseline.C ontinue Advair 100/25 mcg BID and albuterol MDI 2 puffs q 4 hrs prn.Monito r resp. status. Osteoporosis 83472590 M8 1.0 Continue cholecalci ferol 2000 IU qd, calcium 500 mg BID, and risedronat e 35 mg weeklyMoni tor as outpt. Gastroesop hageal reflux disease without esophagitis 635793794 K21.9 No current sxs.Contin ue pantoprazo le 40 mg qd.Monitor sxs. Hyperlipidemia 03497628 E78.49 Continue atorvastat in 40 mg qd.Monitor labs as outpt. Mixed anxi ety and depressive disorder 851349647 F41.8 Mood ok tonight.Co ntinue bupropion ER 150 mg qd, Buspar 5 mg qd, and trazodone 100 mg qhsMonitor mood.Psych consult prn. Impaired cognition 89579 6002 R41.89 Oriented today, but with frequent episodes of confusion. Continue supportive care, expect decline.HC P invokedMon itor mood and behaviors. Psych consult prn. Overactive urinary bladder 140810057 N32.81 Per pt. has been on Gemtesa in the past, would like to restart.Ge mtesa 75 mg qd.Monitor urinary function. Restless l egs syndrome 85533144 G25.81 With increased sxs of RLS.Will start requip 0.25 mg qhs.Monito r sxs. Dry eyes 340731780 H04.1 23 Will start natural tears q 2 hrs prn, may leave at bedside.Mo nitor sxs. [id number] TONY ALMARAZ [address] [place] [address] 10/13/2022 12:47:26 10/15/2022 12:27:09 Hematoma 233033890 M79.81 sent to ED for further eval as it is expanding [id number] TONY ALMARAZ [address] [place] [address] 10/17/2022 10:23:03 10/22/2022 16:06:33 Hematoma 844744902 M79.81 oxycodone 2.5 mg q6hr prn for 5 daysmonito r for healibng Recurrent falls 56738656 2 R29.6 PT OT eval and treatfall precaution sfrequent safety checks Hematoma o f right thigh 8370012015 4476968 S70.11XA resolvedav oid further falls Atrial fibrillation 4943 6004 I48.91 amiodarone 200 mg dailyeiliq uis 5 mg bidbisopro lol 2.5 mg daily Chronic ob structive pulmonary disease 09661753 J44.9 albuterol inhaler q4hr prnadvair 100/25 daily Congestive heart failure 72464655 I50.9 lasix 20 mg dailylosar miller 25 mg daily Osteoarthritis 153724559 M19.90 cholecalci ferol 2000 dailyrisen dronate 35 weekly Gastroesop hageal reflux disease without esophagitis 189223510 K21.9 CaCarb 500 bidprotoni x 40 mg daily Essential hypertension 86540638 I10 amlodipine 5 mg dailycloni dine 0.1 mg q12 hr Hyperlipidemia 88782451 E78.5 atorvastat in 40 mg daily Mixed anxi ety and depressive disorder 318006297 F41.8 bupropion er 150 mg dailybuspa r 5 mg dailytrazo done 100 mg hs Overactive urinary bladder 627773114 N32.81 Gemtesa 75 mg qd.Monitor urinary function. [id number] JUAN MANUEL MORALES NP [address] [address] 10/20/2022 12:38:53 10/22/2022 16:25:33 Hematoma 403120702 M79.81 oxycodone 2.5 mg q6hr prn for 5 daysmonito r for healing Recurrent falls 17209501 2 R29.6 PT OT eval and treatfall precaution sfrequent safety checks [id number] JUAN MANUEL MORALES NP [address] [address] 10/24/2022 10:45:27 10/28/2022 12:44:55 Hematoma 368606349 M79.81 oxycodone 2.5 mg q6hr prn for 5 daysmonito r for healing Impaired cognition 45616 6002 R41.89 Oriented intermitte ntly, but with frequent episodes of confusion. Continue supportive care, expect decline.HC P invokedMon itor mood and behaviors. Psych consult prn. [id number] JUAN MANUEL MORALES NP MARCIO DONG [address] [place] [address] [place] [id number] 10/29/2022 13:57:22 10/31/2022 15:54:37 Hematoma 011166591 M79.81 monitor for healing Recurrent falls 62189341 2 R29.6 PT OT eval and treatfall precaution sfrequent safety checks Hematoma o f right thigh 0911277531 0261088 S70.11XA resolvedav oid further falls Atrial fibrillation 4943 6004 I48.91 amiodarone 200 mg dailyeiliq uis 5 mg bidbisopro lol 2.5 mg daily Chronic ob structive pulmonary disease 73711650 J44.9 albuterol inhaler q4hr prnadvair 100/25 daily Congestive heart failure 73437643 I50.9 lasix 20 mg dailylosar miller 25 mg daily Osteoarthritis 361687600 M19.90 cholecalci ferol 2000 dailyrisen dronate 35 weekly Gastroesop hageal reflux disease without esophagitis 252626721 K21.9 CaCarb 500 bidprotoni x 40 mg daily Essential hypertension 55479497 I10 amlodipine 5 mg dailycloni dine 0.1 mg q12 hr Hyperlipidemia 62249139 E78.5 atorvastat in 40 mg daily Mixed anxi ety and depressive disorder 716184143 F41.8 bupropion er 150 mg dailybuspa r 5 mg dailytrazo done 100 mg hs Overactive urinary bladder 145682986 N32.81 Gemtesa 75 mg qd.Monitor urinary function. [id number] MD MARCIO Cline IKER [address] [place] [address] [place] [id number] 01/28/2023 07:59:08 01/30/2023 15:30:48 Impaired cognition 997246694 R41.89 will monitor and support as neededI did not feel that I could invoke patient's HCP proxy today as she was quite appropriat e in her answers to my questions with even some insight. Chronic ob structive pulmonary disease 00569994 J41.0 Advair 250-50: one puff [id number] rol HFA: 2 puffs q4h prnwill monitor Atrial fibrillation 4943 6004 I48.0 apixaban 5 mg bidbisopro lol 2.5 mg dailyamiod arone 200 mg dailywill monitor Essential hypertension 47187904 I10 bisoprolol 2.5 mg dailyamlod ipine 5 mg dailyfuros emide 20 mg dailylosar miller 25 mg dailycloni dine 0.1 mg [id number] monitor Mixed anxi ety and depressive disorder 244572581 F41.8 buspirone 5 mg tidtrazodo ne 100 mg at hsbupropri on 100 mg dailyescit alopram 10 mg dailyhydro xyzine 10 mg q8h prn anxietywil l monitor Overactive urinary bladder 149914814 N32.81 vibegron 75 mg dailywill monitor Restless l egs syndrome 31280497 G25.81 ropinirole 0.25 mg dailywill monitor Gastroesop hageal reflux disease without esophagitis 348081746 K21.9 pantoprazo le 40 mg dailywill monitor Primary osteoporosis 276 214243 M81.0 risendrona te 25 mg weeklywill monitor Chronic sy stolic heart failure 591484188 I50.22 losartan 25 mg dailyfuros emide 20 mg dailybisop rolol 2.5 mg dailywill monitor [id number] TONY ALMARAZ [address] [address] 03/20/2023 16:32:09 03/27/2023 09:38:51 Overactive urinary bladder 171753257 N32.81 urology consult prnMonitor urinary function. Impaired cognition 64661 6002 R41.89 will monitor and support as needed Chronic ob structive pulmonary disease 11217890 J41.0 Advair 250-50: one puff [id number] rol HFA: 2 puffs q4h prnwill monitor Atrial fibrillation 4943 6004 I48.0 apixaban 5 mg bidbisopro lol 2.5 mg dailyamiod arone 200 mg dailywill monitor Essential hypertension 63647947 I10 bisoprolol 2.5 mg dailyamlod ipine 5 mg dailyfuros emide 20 mg dailylosar miller 25 mg dailycloni dine 0.1 mg q35ttetx monitor Mixed anxi ety and depressive disorder 758861887 F41.8 buspirone 5 mg tidtrazodo ne 100 mg at hsbupropri on 100 mg dailyescit alopram 10 mg dailyhydro xyzine 10 mg q8h prn anxietywil l monitor Restless l egs syndrome 01972381 G25.81 ropinirole 0.25 mg dailywill monitor Gastroesop hageal reflux disease without esophagitis 987537887 K21.9 pantoprazo le 40 mg dailywill monitor Primary osteoporosis 276 716599 M81.0 risendrona te 25 mg weeklywill monitor Chronic sy stolic heart failure 556351676 I50.22 losartan 25 mg dailyfuros emide 20 mg dailybisop rolol 2.5 mg dailywill monitor Recurrent falls 98889682 2 R29.6 PT OT eval and treatfall precaution sfrequent safety checks [id number] Sandra Morrison MD [address] [place] [id number] 05/15/2023 17:56:32 05/19/2023 11:07:46 Fall 8669782 R29.6 Hx of fallsConti nue fall precaution s.Monitor for safety. Essential hypertension 13118372 I10 Good control.Co ntinue bisoprolol 2.5 mg qd, lasix 20 mg qd, losartan 25 mg qd. amlodipine 5 mg qd and clonidine 0.1 mg BID.Monito r BP and labs. Hematoma o f right thigh 0596876084 4665214 S70.11XD Healed.CBC stable. Impaired cognition 24703 6002 R41.89 Mild confusion today, but fairly oriented.C ontinue supportive care, expect decline.HC P invokedMon itor mood and behaviors. Psych consult prn. Congestive heart failure 29911719 I50.22 Continues to be euvolemic. Continue bisoprolol 2.5 mg qd, lasix 20 mg qd and losartan 25 mg qd.Monitor resp. status, fluid status, wts and labs. Atrial fibrillation 4943 6004 I48.0 Rate remains in good control on meds as above and amiodarone 200 mg qd.Continu e eliquis 5 mg BID for AC.Monitor HR and bleeding risk. Chronic ob structive pulmonary disease 54040045 J43.8 Continues at baseline.C ontinue Advair 100/25 mcg BID and albuterol MDI 2 puffs q 4 hrs prn.Monito r resp. status. Osteoporosis 43514403 M8 1.0 Continue cholecalci ferol 2000 IU qd, calcium 500 mg BID, and risedronat e 35 mg weeklyMoni tor as outpt. Gastroesop hageal reflux disease without esophagitis 226228073 K21.9 No current sxs.Contin ue pantoprazo le 40 mg qd.Monitor sxs. Hyperlipidemia 11883893 E78.49 Continue atorvastat in 40 mg qd.Monitor labs as outpt. Mixed anxi ety and depressive disorder 497391987 F41.8 Mood ok tonight.Co ntinue bupropion ER 100 mg qd, Buspar 5 mg TID, clonidine 0.1 m BID, and trazodone 100 mg qhsMonitor mood.Psych consult prn. Restless l egs syndrome 93794875 G25.81 Continue requip 0.25 mg qhs.Monito r sxs. Mixed urin laura incontinence 789489237 N39.46 Continue estring 2 mg q 3 months and estrace cream 2 gms 3x/wkMonit or urinary function.F /U with uro prn. Visual hallucinations 64 980823 R44.1 Psych consult for visual and auditory hallucinat ions.[place] ring to pt. [id number] TONY ALMARAZ [address] [place] [address] [place] [id number] 07/10/2023 12:52:00 07/21/2023 11:22:40 Overactive urinary bladder 754703342 N32.81 urology consult prnMonitor urinary function.d -mannose 500 mg daily uti preventati ve Impaired cognition 44160 6002 R41.89 will monitor and support as needed Chronic ob structive pulmonary disease 25766896 J41.0 Advair 250-50: one puff [id number] rol HFA: 2 puffs q4h prnwill monitor Atrial fibrillation 4943 6004 I48.0 apixaban 5 mg bidbisopro lol 2.5 mg dailyamiod arone 200 mg dailywill monitor Essential hypertension 27144522 I10 bisoprolol 2.5 mg dailyamlod ipine 5 mg dailyfuros emide 20 mg dailylosar miller 25 mg dailycloni dine 0.1 mg [id number] monitor Mixed anxi ety and depressive disorder 657677569 F41.8 buspirone 5 mg tidtrazodo ne 100 mg at hsbupropri on 100 mg dailyescit alopram 10 mg dailyhydro xyzine 10 mg q8h prn anxietywil l monitor Restless l egs syndrome 38652761 G25.81 ropinirole 0.25 mg dailywill monitor Gastroesop hageal reflux disease without esophagitis 994849257 K21.9 pantoprazo le 40 mg dailywill monitor Primary osteoporosis 276 000504 M81.0 risendrona te 25 mg weeklywill monitor Chronic sy stolic heart failure 600165822 I50.22 losartan 25 mg dailyfuros emide 20 mg dailybisop rolol 2.5 mg dailywill monitor Recurrent falls 06768417 2 R29.6 PT OT eval and treatfall precaution sfrequent safety checks [id number] JUAN MANUEL MORALES NP [address] [phone] 07/15/2023 12:09:17 07/21/2023 14:31:17 Leukocytosis 833077326 D72.829 UA C/Scxr [id number] Martina Vidalburn Hazel [address] [id number] 08/28/2023 10:48:09 10/26/2023 15:56:34 Atrial fibrillation 71159211 I48.0 chronic, stable. RCcontinue eliquiscon tinue norvasccon tinue amiodarone monitor HR Chronic ob structive pulmonary disease 85078354 J41.0 chronic stablecont inue inhalersmo nitor for changes in respirator y status Congestive heart failure 09294569 I50.22 chronic, stablecont inue lasix 20mg dailymonit or BMP Essential hypertension 97689627 I10 chronic stablecont inue norvasc and losartanal so on lasix Hyperlipidemia 55437922 E78.49 continue atorvastat inmonitor lipids annually [id number] Jenni Kwong MD [address] [place] [id number] 09/09/2023 08:10:55 09/15/2023 10:16:26 Impaired cognition 984216911 R41.89 will monitor and support as needed Mixed anxi ety and depressive disorder 810505704 F41.8 buspirone 5 mg tidtrazodo ne 100 mg at hsbupropri on 100 mg dailyescit alopram 10 mg dailyhydro xyzine 10 mg q8h prn anxietywil l monitor Atrial fibrillation 4943 6004 I48.0 apixaban 5 mg bidbisopro lol 2.5 mg dailyamiod arone 200 mg dailywill monitor Essential hypertension 02746491 I10 bisoprolol 2.5 mg dailyamlod ipine 5 mg dailyfuros emide 20 mg dailylosar miller 25 mg dailycloni dine 0.1 mg [id number] monitor Hyperlipidemia 57227610 E78.49 atorvastat in 40 mg dailywill monitor Chronic ob structive pulmonary disease 20969422 J41.0 Advair 250-50: one puff [id number] rol HFA: 2 puffs q4h prnwill monitor Gastroesop hageal reflux disease without esophagitis 194966104 K21.9 pantoprazo le 40 mg dailywill monitor Restless l egs syndrome 88928461 G25.81 ropinirole 0.25 mg dailywill monitor Cobalamin deficiency 190 859626 E53.8 B12 500 mcg dailywill monitor [id number] [facility] [address] [place] [id number] 09/21/2023 11:12:35 09/23/2023 09:57:55 Acute dermatitis 40144504 L30.9 left upper facial near left eye [...] provide new make up brushes Impaired cognition 21555 6002 R41.89 will monitor and support as needed [id number] [facility] MARCIO DONG [address] [place] [address] [place] [id number] 09/22/2023 15:18:31 09/24/2023 12:07:21 Impaired cognition 078886060 R41.89 will monitor and support as needed Pain of le ft knee region 7495808327 86333 M25.562 see hpiwill scheduled 975 mg tylenol TIDxray left knee 2 viewsconsi christiano PT/OT eval if imaging is negative for fx. [id number] [facility] IKER [address] [place] [address] [place] [id number] 10/13/2023 18:47:09 10/15/2023 17:16:34 Cough 60197675 R05.9 10/11: started mucinex 600 mg q [...] dayincreas e oral hydrationm onitor resp status [id number] [facility] IKER [address] [place] [address] [place] [id number] 10/29/2023 11:14:47 11/03/2023 12:16:03 Impaired cognition 282867394 R41.89 Continue supportive care, expect decline.HC P invokedMon itor mood and behaviors. Psych consult prn. Essential hypertension 83966673 I10 BP has been controlled with current medicatios .Continue bisoprolol 2.5 mg qd, lasix 20 mg qd, losartan 25 mg qd. amlodipine 5 mg qd and clonidine 0.1 mg BID.Monito r BP and labs. Congestive heart failure 04482090 I50.22 euvolemic. Continue bisoprolol 2.5 mg qd, lasix 20 mg qd and losartan 25 mg qd.Monitor resp. status, fluid status, wts and labs. Atrial fibrillation 4943 6004 I48.0 HR controlled continue amiodarone 200 mg qd.Continu e eliquis 5 mg BID for AC.Monitor HR and bleeding risk. Chronic ob structive pulmonary disease 53775783 J43.8 Continues at baseline.C ontinue Advair 100/25 mcg BID and albuterol MDI 2 puffs q 4 hrs prn.Monito r resp. status. Osteoporosis 08373629 M8 1.0 Continue cholecalci ferol 2000 IU qd, calcium 500 mg BID, and risedronat e 35 mg weeklyMoni tor as outpt. Gastroesop hageal reflux disease without esophagitis 890996117 K21.9 No current sxs.Contin ue pantoprazo le 40 mg qd.Monitor sxs. Hyperlipidemia 25932381 E78.49 Continue atorvastat in 40 mg qd.Monitor labs as outpt. Mixed anxi ety and depressive disorder 246661778 F41.8 Continue bupropion ER 100 mg qd, Buspar 5 mg TID, clonidine 0.1 m BID, and trazodone 100 mg qhs,lexapr o 10 mg daily and hydroxyzin e 10 mg qdMonitor mood.Psych consult prn. Restless l egs syndrome 75441910 G25.81 Continue requip 0.25 mg qhs.Monito r sxs. Mixed urin laura incontinence 228280056 N39.46 Continue estring 2 mg q 3 monthsMoni tor urinary function.F /U with uro prn. Tear of skin 837249199 T 14.8XXA LLE flap tear, approximat edcontinue to monitor healing. [id number] [facility] [address] [place] [id number] 11/10/2023 12:24:35 11/23/2023 12:50:14 Pain of shoulder region 17092885 M25.519 right shoulder pain+ discomfort with abduction, suspect OAnursing to give now dose tylenol and continue prnPT/OT eval and treatwill monitor. [id number] [facility] [address] [place] [id number] 5 11/25/2023 11:56:55 11/27/2023 12:02:47 Candidiasis of vagina 18353215 B37.31 vaginal redness appears yeastPatie nt has no discomfort start diflucan 150 mg Q72 for 3 dosesPt is incontinen t, nursing encourage to check for incontinen t episode and change Q2.keep skin clean and drymonitor for resolution [id number] MD MARCIO Ramirez IKER [address] [place] [address] rd [place] [id number] 01/15/2024 21:46:22 02/02/2024 07:55:44 Impaired cognition 124109477 R41.89 Continues at baseline.C ontinue escitalopr am 10 mg qd, bupropion ER 100 mg qd, Buspar 5 mg TID, clonidine 0.1 m BID, trazodone 100 mg qhs, and hydroxyzin e 10 mg qd.Continu e supportive care, expect decline.HC P invokedMon itor mood and behaviors. Psych follows. Visual hallucinations 64 279470 R44.1 Psych follows, no mention of this in recent notes.Aida tor Essential hypertension 63730914 I10 Continues in good control.Co ntinue bisoprolol 2.5 mg qd, lasix 20 mg qd, losartan 25 mg qd. amlodipine 5 mg qd and clonidine 0.1 mg BID.Monito r BP and labs. Congestive heart failure 68060421 I50.22 Continues to be euvolemic. Continue bisoprolol 2.5 mg qd, lasix 20 mg qd and losartan 25 mg qd.Monitor resp. status, fluid status, wts and labs. Atrial fibrillation 4943 6004 I48.0 Rate in good control on meds as above and amiodarone 200 mg qd.Continu e eliquis 5 mg BID for AC.Monitor HR and bleeding risk. Chronic ob structive pulmonary disease 41208878 J43.8 Continues at baseline.C ontinue Advair 100/25 mcg BID and albuterol MDI 2 puffs q 4 hrs prn.Mucine x 600 mg BID added for cough in 10/2023.Mon itor resp. status. Osteoporosis 54325368 M8 1.0 Continue cholecalci ferol 2000 IU qd, calcium 500 mg BID, and risedronat e 35 mg weeklyMoni tor as outpt. Gastroesop hageal reflux disease without esophagitis 308978138 K21.9 No current sxs.Contin ue pantoprazo le 40 mg qd.Monitor sxs. Hyperlipidemia 85184820 E78.49 Continue atorvastat in 40 mg qd.Monitor labs as outpt. Mixed anxi ety and depressive disorder 756253026 F41.8 As above. Restless l egs syndrome 04461656 G25.81 She mentions this tonight.Co ntinue requip 0.25 mg qhs.Consid er increase to 0.5 mg qhs.Monito r sxs. Mixed urin laura incontinence 674272525 N39.46 Continue estring 2 mg q 3 months.Mon itor urinary function.F /U with uro prn. Cough 61983878 R05.9 Back to baseline.M onitor [id number] [facility] [address] [id number] 02/24/2024 09:53:07 02/25/2024 10:07:37 Bacterial conjunctivitis 513438704 H10.9 see hpibilater al erythema, dry yellowish discharge noted on lashes and corners or eyesstart ofloxacin 0.3 % 2 gtts QID for 5 daysmonito r for resolution patient encouraged to avoid rubbing eyes, apply cool compress for comfort. [id number] [facility] [address] [id number] 03/02/2024 10:16:42 03/04/2024 10:24:18 Bacterial conjunctivitis 249235699 H10.9 ofloxacin eye gtts completeds clera white, no drainage or discharge, denies didcomfort .bilateral erythema, dry yellowish discharge noted on lashes and corners or eyespatien t encouraged to avoid rubbing eyes, apply cool compress for comfort. Mixed anxi ety and depressive disorder 872485736 F41.8 followed by [facility] seen on 02/28 with recommenda tion for GDR she is currently on 4 psychotrop ic medication 03/02: decrease bupropion ER 100 mg qd to 75 mgcheck EKG for QTcContinu e , Buspar 5 mg TID, clonidine 0.1 m BID, and trazodone 100 mg qhs,lexapr o 10 mg daily and hydroxyzin e 10 mg qdMonitor mood.Psych prn [id number] [facility] [address] [id number] 03/07/2024 15:12:42 03/09/2024 09:31:11 Recurrent falls 791577896 R29.6 see hpino acute injuries or reports of discomfort .nursing to continue post fall protocol. [id number] RE[facility] [address] [facility] [place] [id number] 03/09/2024 10:14:06 03/15/2024 13:07:32 Impaired cognition 467979264 R41.89 Continue supportive care, expect decline.HC P invokedMon itor mood and behaviors. Psych consult prn. Essential hypertension 77311327 I10 Continue bisoprolol 2.5 mg qd, lasix 20 mg qd, losartan 25 mg qd. amlodipine 5 mg qd and clonidine 0.1 mg BID.Monito r BP and labs. Congestive heart failure 89375587 I50.22 euvolemic. she has been stableCont inue bisoprolol 2.5 mg qd, lasix 20 mg qd and losartan 25 mg qd.Monitor resp. status, fluid status, wts and labs. Atrial fibrillation 4943 6004 I48.0 denies any chest pain or other associated sx,continu e amiodarone 200 mg qd.Continu e eliquis 5 mg BID for AC.Monitor HR and bleeding risk. Chronic ob structive pulmonary disease 75692659 J43.8 Continues at baseline.C ontinue Advair 100/25 mcg BID and albuterol MDI 2 puffs q 4 hrs prn.Monito r resp. status. Osteoporosis 78124405 M8 1.0 Continue cholecalci ferol 2000 IU qd, calcium 500 mg BID, and risedronat e 35 mg weeklyMoni tor as outpt. Gastroesop hageal reflux disease without esophagitis 317801056 K21.9 tolerating a regular diet, no reported GI upsetConti nue pantoprazo le 40 mg qd.Monitor sxs. Hyperlipidemia 07821864 E78.49 Continue atorvastat in 40 mg qd.Monitor labs as outpt. Mixed anxi ety and depressive disorder 555456631 F41.8 Continue bupropion ER 100 mg qd, Buspar 5 mg TID, clonidine 0.1 m BID, and trazodone 100 mg qhs,lexapr o 10 mg daily and hydroxyzin e 10 mg qdMonitor mood.Psych consult prn. Restless l egs syndrome 47447582 G25.81 Continue requip 0.25 mg qhs.Monito r sxs. Mixed urin laura incontinence 042176969 N39.46 Continue estring 2 mg q 3 monthsMoni tor urinary function.F /U with uro prn. Bacterial conjunctivitis 617181999 H10.9 resolvedof loxacin eye gtts completeds stacy villalobos, no drainage or discharge, denies discomfort . Recurrent falls 81256416 2 R29.6 s/p fall 03/05no acute injuries or reports of discomfort .nursing to continue post fall protocol. [id number] [facility] [address] [id number] 04/04/2024 13:13:21 04/05/2024 13:32:19 Viral conjunctivitis 34039413 B30.9 left eyeleft sclera erythema, lower lid swelling( aggravated by rubbing) with clear drainage.n o itchiness or discomfort start azelastine gtt BID for 14 day.monito r for resolution patient encouraged to avoid rubbing eyes, apply cool compress for comfort. [id number] [facility] [address] [place] [phone] 04/07/2024 11:04:20 04/08/2024 12:46:40 Viral conjunctivitis 15654098 B30.9 left eye /stablelef t sclera erythema, lower lid swelling( aggravated by rubbing) with clear drainage.n o itchiness or discomfort start azelastine gtt BID for 14 day.- have not received med from pharmacy-m onitor for resolution patient encouraged to avoid rubbing eyes, apply cool compress for comfort. Acute urin laura tract infection 401820882 N39.0 see hpiwill start bactrim 400mg Q12 for 7 dayadd probiotic BIDencoura ged to have increased water consumptio n to flush out toxins Hypokalemia 23254700 E87 .6 subtle at 3.1will replete with kcl 20 meq times 2 daysmonito r for associated sx (weakness, cramping, twitching) patient to notify nursing staff with sx [id number] [facility] e [address] [facility] [place] [id number] 04/28/2024 11:26:55 04/29/2024 11:42:54 Impaired cognition 755315176 R41.89 stableCont inue supportive care, expect decline.HC P invokedMon itor mood and behaviors. Psych consult prn. Essential hypertension 60351519 I10 Continue bisoprolol 2.5 mg qd, lasix 20 mg qd, losartan 25 mg qd. amlodipine 5 mg qd and clonidine 0.1 mg BID.Monito r BP and labs. Congestive heart failure 81676797 I50.22 euvolemic. she has been stableCont inue bisoprolol 2.5 mg qd, lasix 20 mg qd and losartan 25 mg qd.Monitor resp. status, fluid status, wts and labs. Atrial fibrillation 4943 6004 I48.0 denies any chest pain or other associated sx,continu e amiodarone 200 mg qd.Continu e eliquis 5 mg BID for AC.Monitor HR and bleeding risk. Chronic ob structive pulmonary disease 73673216 J43.8 Continues at baseline.C ontinue Advair 100/25 mcg BID and albuterol MDI 2 puffs q 4 hrs prn.Monito r resp. status. Osteoporosis 34955965 M8 1.0 Continue cholecalci ferol 2000 IU qd, calcium 500 mg BID, and risedronat e 35 mg weeklyMoni tor as outpt. Gastroesop hageal reflux disease without esophagitis 620996526 K21.9 tolerating a regular diet, no reported GI upsetConti nue pantoprazo le 40 mg qd.Monitor sxs. Hyperlipidemia 93939961 E78.49 Continue atorvastat in 40 mg qd.Monitor labs as outpt. Mixed anxi ety and depressive disorder 498558869 F41.8 Continue bupropion ER 100 mg qd, Buspar 5 mg TID, clonidine 0.1 m BID, and trazodone 100 mg qhs,lexapr o 10 mg daily and hydroxyzin e 10 mg qdMonitor mood.Psych consult prn. Restless l egs syndrome 79158894 G25.81 Continue requip 0.25 mg qhs.Monito r sxs. Mixed urin laura incontinence 957328971 N39.46 Continue estring 2 mg q 3 monthsMoni tor urinary function.F /U with uro prn. Acute urin laura tract infection 057103422 N39.0 completed abxencoura ged to have increased water consumptio n to flush out toxins Hypokalemia 62442547 E87 .6 subtle at 3.1will replete with kcl 20 meq times 2 daysmonito r for associated sx (weakness, cramping, twitching) patient to notify nursing staff with sx [id number] [facility] [address] [id number] 05/09/2024 11:39:53 05/10/2024 13:50:01 Pain of shoulder region 43669144 M25.519 see HPInon traumatic right shoulder painGive now dose for tramadol 50 mg then tramadol 50 mg Q6 prnschedul e tylenol 1 g TIDxray 3 viewscan apply ice for pain or heat for comfort [id number] [facility] [address] [id number] 05/19/2024 09:40:12 05/23/2024 12:46:45 Pain of shoulder region 94418238 M25.519 non traumatic right shoulder pain-xray negative for any acute findings.c ontinue tramadol 50 mg Q6 prnschedul e tylenol 1 g TID [id number] [facility] [address] [phone] 06/16/2024 08:41:53 06/22/2024 12:46:48 Diplopia 00480326 H53.2 intermitte nt12/4 opthamolog y exam showed esophoria at distance , divergence insufficie ncy can be neurologic al neurology consult recommende d, otherwise follow up in 1 year. Impaired cognition 25182 6002 R41.89 Continue supportive care, expect decline.HC P invokedcon tinue to monitor mood and behaviors with recent med changes Essential hypertension 18541061 I10 Continue bisoprolol 2.5 mg qd, lasix 20 mg qd, losartan 25 mg qd. amlodipine 5 mg qd and clonidine 0.1 mg BID.Monito r BP and labs. Congestive heart failure 61268487 I50.22 euvolemic. she has been stableCont inue [...] bleeding risk. Chronic ob structive pulmonary disease 99280429 J43.8 Continue Advair 100/25 mcg BID and albuterol MDI 2 puffs q 4 hrs prn.Monito r resp. status. Osteoporosis 21922404 M8 1.0 Continue cholecalci ferol 2000 IU qd, calcium 500 mg BID, and risedronat e 35 mg weeklyMoni tor as outpt. Gastroesop hageal reflux disease without esophagitis 156269080 K21.9 tolerating a regular diet, no reported GI upsetpanto prazole discontinu ed due to QTc Hyperlipidemia 97903544 E78.49 Continue atorvastat in 40 mg qd.Monitor labs as outpt. Mixed anxi ety and depressive disorder 853311222 F41.8 nursing reports daily anxiety, currently on [...] day in place of hydroxyzin e Restless l egs syndrome 32090048 G25.81 Continue requip 0.25 mg qhs.Monito r sxs. Mixed urin laura incontinence 658290188 N39.46 Continue estring 2 mg q 3 monthsMoni tor urinary function.F /U with uro prn. [id number] [facility] [address] [place] [id number] 06/20/2024 10:53:20 06/21/2024 14:19:17 Diplopia 51802089 H53.2 intermitte nt12/4 opthamolog y exam showed esophoria at distance , divergence insufficie ncy can be neurologic al neurology consult recommende d, otherwise follow up in 1 year.she will discuss with family Mixed anxi ety and depressive disorder 513268371 F41.8 nursing reports daily anxiety, currently on [...] and bleeding risk. Prolonged QT interval 11 6755519 I45.81 HX afib.QTc 467GDR - amiodarone and protonix decreased, hydroxyzin e stoppedden ies any associated sx/ no dizziness, palpitatio n etc.repeat ekg in 1 week [id number] [facility] [address] [place] [address] [place] [id number] 07/01/2024 08:22:16 07/04/2024 15:48:50 Respiratory tract congestion and cough 479491466 R05.9 non productive chest xray complete:T he lung johansen are clear without mass, infiltrate , congestion , or effusion. SARS-CoV-2 487904626 U07 .1 07/01 positive teststart Molnupirav ir 800 mg BID for 5 dayscontin ue supportive therapy with oxygen prnisolati on precaution [id number] [facility] [address] [place] [address] [place] [id number] 07/04/2024 09:57:50 07/05/2024 09:55:44 Respiratory tract congestion and cough 549316223 R05.9 no cough appreciate d on exam SARS-CoV-2 087634885 U07 .1 07/01 positive testcopnti gregoria Dela Cruzupirav ir 800 mg BID for 5 dayscontin ue supportive therapy with oxygen prnisolati on precaution [id number] [facility] [address] [facility] [place] [id number] 10/09/2024 10:55:30 10/13/2024 16:07:53 Mixed anxiety and depressive disorder 020610181 F41.8 stablecont inue escitalopr am, BusPIRone and trazodone Impaired cognition 20480 6002 R41.89 Continue supportive care, expect decline.HC P invokedcon tinue to monitor mood and behaviors with recent med changes Essential hypertension 75389732 I10 stableCont inue bisoprolol 2.5 mg qd, lasix 20 mg qd, losartan 25 mg qd. amlodipine 5 mg qd and clonidine 0.1 mg BID.Monito r BP and labs. Congestive heart failure 02919187 I50.22 euvolemic. stableCont inue bisoprolol 2.5 mg qd, lasix 20 mg qd and losartan 25 mg qd.Monitor resp. status, fluid status, wts and labs. Atrial fibrillation 4943 6004 I48.0 stablerate controlled cont amiodarone to 100 mg qdContinue eliquis 5 mg BID for AC.Monitor HR and bleeding risk. Chronic ob structive pulmonary disease 71041522 J43.8 stableCont inue Advair 100/25 mcg BID and albuterol MDI 2 puffs q 4 hrs prn.Monito r resp. status. Gastroesop hageal reflux disease without esophagitis 010244046 K21.9 stabletole rating a regular diet, no reported GI upsetpanto prazole discontinu ed due to QTc Hyperlipidemia 68969987 E78.49 Continue atorvastat in 40 mg qd.Monitor labs as outpt. [id number] Abhi Erickson MD [facility] [address] [place] [address] [place] [id number] 10/12/2024 11:19:17 10/14/2024 08:28:33 Impaired cognition 696673151 R41.89 baseline impaired cognitionH CP invokedmon itor for behaviorsp sych eval prn Pruritic rash 00743631 L 28.2 eschar x 2 present left wristdoes not appear infectedsu rrounding pruritisat arax 25 mg q 8 prnmonitor for effect [id number] MD MARCIO Ayers [address] [place] [address] [place] [id number] 10/24/2024 12:55:25 10/26/2024 11:39:25 Thrombocytosis 5292605 D75.839 D75.838 88967 acute thrombocyt osisrepeat stat cbc to recheck plt levelif remains elevated will starthydre a 1000 mg qd and request heme consult Leukocytosis 630652882 D 72.829 see above Impaired cognition 18872 6002 R41.89 baseline impaired cognitionH CP invokedcoo rdinate with HCP as needed for further workup [id number] DARVIN MARIE CNP [address] [place] [id number] 10/26/2024 12:10:11 11/01/2024 08:15:11 Thrombocytosis 6226167 D75.839 D75.838 20657 acute thrombocyt osisimprov ing with hydrea 1000 mg daily.repe at stat cbc to recheck plt level next week.if remains elevated will startconti nue hydrea 1000 mg dialy and will request heme consult Leukocytosis 689963941 D 72.829 improving. see above Impaired cognition 39979 6002 R41.89 baseline impaired cognitionH CP invokedcoo rdinate with HCP as needed for further workup [id number] DARVIN MARIE CNP [address] [place] [id number] 11/16/2024 10:25:17 11/18/2024 12:49:51 Thrombocytosis 2425601 D75.839 D75.838 88800 acute thrombocyt osisimprov ing with hydrea 1000 mg daily.Plt 300 on 11/14/24.elida l d/c hydrean 1000 mg and monitor CBC on Thursday, .R equest heme consult Leukocytosis 845598976 D 72.829 improving. see above Impaired cognition 44237 6002 R41.89 baseline impaired cognitionH CP invokedcoo rdinate with HCP as needed for further workup Mixed anxi ety and depressive disorder 244911193 F41.8 stablecont inue current psychotrop ic medication Essential hypertension 60578332 I10 stableCont inue bisoprolol 2.5 mg qd, lasix 20 mg qd, losartan 25 mg qd. amlodipine 5 mg qd and clonidine 0.1 mg BID.Monito r BP and labs. Congestive heart failure 11098969 I50.22 euvolemic. stableCont inue bisoprolol 2.5 mg qd, lasix 20 mg qd and losartan 25 mg qd.Monitor resp. status, fluid status, wts and labs. Atrial fibrillation 4943 6004 I48.0 stablerate controlled cont amiodarone to 100 mg qdContinue eliquis 5 mg BID for AC.Monitor HR and bleeding risk. Chronic ob structive pulmonary disease 10756123 J43.8 stableCont inue Advair 100/25 mcg BID and albuterol MDI 2 puffs q 4 hrs prn.Monito r resp. status. Gastroesop hageal reflux disease without esophagitis 444542956 K21.9 stabletole rating a regular diet, no reported GI upsetpanto prazole discontinu ed due to QTc Hyperlipidemia 62450549 E78.49 Continue atorvastat in 40 mg qd.Monitor labs as outpt. [id number] [facility] [address] [place] [id number] 01/18/2025 05:50:29 01/20/2025 13:05:29 Mixed anxiety and depressive disorder 618232456 F41.8 stablecont inue escitalopr am, BusPIRone and trazodone Impaired cognition 70278 6002 R41.89 Continue supportive care, expect decline.HC P invokedcon tinue to monitor mood and behaviors with recent med changes Essential hypertension 87790956 I10 stableCont inue bisoprolol 2.5 mg qd, lasix 20 mg qd, losartan 25 mg qd. amlodipine 5 mg qd and clonidine 0.1 mg BID.Monito r BP and labs. Congestive heart failure 46299789 I50.22 euvolemic. stableCont inue bisoprolol 2.5 mg qd, lasix 20 mg qd and losartan 25 mg qd.Monitor resp. status, fluid status, wts and labs. Atrial fibrillation 4943 6004 I48.0 stablerate controlled cont amiodarone to 100 mg qdContinue eliquis 5 mg BID for AC.Monitor HR and bleeding risk. Chronic ob structive pulmonary disease 45008227 J43.8 stableCont inue Advair 100/25 mcg BID and albuterol MDI 2 puffs q 4 hrs prn.Monito r resp. status. Gastroesop hageal reflux disease without esophagitis 241443138 K21.9 stabletole rating a regular diet, no reported GI upsetpanto prazole discontinu ed due to QTc Hyperlipidemia 61966605 E78.49 Continue atorvastat in 40 mg qd.Monitor labs as outpt. Health Concerns Section Related Observation LastModified by Organization Detai ls LastModified Time None Recorded Concern Status LastModified by Organization Details LastModified Time None Recorded Advance Directives Directive Y: Payers Insurance Date Sequence Insurance Name Policy Number Policy Burdick Covered Member ID Burdick Member ID Guarantor Name 01/18/2025 2 () Hillary Breathitt [id number] Hillary Breathitt 01/18/2025 1 MEDICARE B-ID: [employer] Hillary Pena Breathitt [id number] Hillary Breathitt 10/17/2023 2 UNSPECIFIED REMIT PAYOR Hillary Yoo Notes Date Note Type Note Provider Name and Address Organization Details Recorded Time 10/12/2024 text/html Patient is a 74 yo female resident asked to al for MD visit with pruritis left hand. Patient with dementia at baseline, brother in room helps with hx. Patient sitting in wheelchair in NAD. Abhi Erickson MD [address] [place] [address], [address], [place], [address], [facility] 10/12/2024 11:58:18 10/24/2024 text/html Patient is a 74 yo female resident seen for acute rounding. CBC was ordered showing significant elevated of wrt=9810 and mild elevation of WBC. Patient with baseline dementia lying in bed in NAD Abhi Erickson MD [address], [address], [place], [address], [facility] 10/24/2024 13:06:12 10/26/2024 text/html Patient is a 74 yo female resident seen for acute rounding. CBC was ordered showing significant elevated of amr=9422 and mild elevation of WBC on 10/24. Pt started hydrea 1000 mg daily. Repeat lab result reviewed today. Patient with baseline dementia lying in bed in NAD DARVIN MARIE CNP [address], [address], [place], [address], [facility] 10/26/2024 12:27:33 11/16/2024 text/html Patient is a 74 yo female LTC resident seen for annual exam.She has been here after multiple falls and a resulting large right thigh hematoma, needing I&D and drains. Also was COVID+ and had a sub-acute left femur fx. She completed rehab and remained too weak to be able to return to [facility] and so is now LTC. Pt had labs, wir=6864 and mild elevation of WBC on 10/24. Pt started hydrea 1000 mg daily. Repeat lab result reviewed today. Plt now 300 on 11/14 and Wbc also trend down to 4.1. Pt is followed by psych, seen on 11/07/24, for medication management. Receiving lexapro, Buspirone, and Trazodone. GDR/taper of buproprion, last dose 06/30/24. Decreased HS Trazodone to 50 mg 05/30/24. Hydroxyzine stopped 06/15/24. Has history of longstanding daily.Nurse reports trend of decreased anxiety and agitation, decreased calling out. Resident is dependent for care. Gradual decline in cognition is observed. Her PMH includes HTN, COPD, s/p COVID 07/2022, GERD, OA, impaired cognition, CHF rEF (35-40%), recent cardiac catheterization with no evidence of CAD, paroxysmal A. fib on Eliquis,hx of left hip fx 07/2022 complicated by 7.5 cm right anterior thigh hematoma that required drains, atraumatic left gluteus hematoma 10/2022, and s/p Maisha-en-Y gastric bypass. Patient with baseline dementia lying in bed in [facility] DARVIN MARIE CNP [address], [address], [place], [address], [facility] 11/16/2024 11:44:39 01/18/2025 text/html ROS as noted in the HPI Hillary is a 74 yr old LTC resident seen for routine rounding. She has been at her baseline in [facility]. no changes in appetite or elimination, there are no acute nursing concerns. REGI COLÓN [address], [address], [place], [address], [facility] 01/19/2025 18:55:56 OBGyn Episode No OBEpisode recorded.
--- OUTSIDE RECORDS SUMMARY | 2025-04-17 07:02 | XMS_ITS | Clinical Summary ---
Author Organization [facility] Address [address] [facility] [facility] [address] [place] [address] Phone Care Team Providers Care Long Term Acute Care Registered Nurse Name Role Phone Unavailable Primary Care Provider [...] complete this topic Insurance Medicare Spina Bifida ([id number]) Medicare Spina Bifida ([id number])
[2025-04-17 07:22] LABS: Alanine Aminotransferase 19 U/L (0-31); Albumin Level 3.3 g/dL (3.5-5.0); Alkaline Phosphatase 75 U/L (39-117); Anion Gap 13 (12-20); Aspartate Amino Transferase 25 U/L (5-31); Blood Urea Nitrogen 18 mg/dL (9-16); Calcium 8.1 mg/dL (8.4-10.2); Carbon Dioxide 20 mmol/L (22-29); Chloride 112 mmol/L (96-108); Estimated Glomerular Filt Rate > 60; Potassium 3.6 mmol/L (3.3-5.1); Sodium 141 mmol/L (135-145); Total Protein 5.7 g/dL (6.5-8.0)
[2025-04-17 07:37] LABS: Platelet Count 1186 X10*3/uL (160-400)
== END 2025-04-17 06:47 | disposition home or self-care (01) ==
LOC: HO.MMNH3L 06:46
PROVIDERS: Visit Provider Physician Assistant Medical
DX: I10 Essential (primary) hypertension (principal)
CPT/HCPCS: 36415; 80053; 85025

== ENCOUNTER 2025-04-18 05:41 | Outpatient (REF) | payer MEDICARE, MEDICAID, SELFPAY ==
--- OUTSIDE RECORDS SUMMARY | 2025-04-18 05:43 | XMS_ITS | Clinical Summary ---
Author Organization [facility] Address [address] [facility] [address] [place] [address] Phone Care Team Providers Care Circulation Assistant Name Role Phone Unavailable Primary Care Provider [...] complete this topic Insurance Medicare Spina Bifida ([id number]) Medicare Spina Bifida ([id number])
[2025-04-18 05:44] LABS: MANUAL DIFF FLAG NO
[2025-04-18 06:20] LABS: Alanine Aminotransferase 20 U/L (0-31); Albumin Level 3.2 g/dL (3.5-5.0); Alkaline Phosphatase 85 U/L (39-117); Anion Gap 13 (12-20); Aspartate Amino Transferase 30 U/L (5-31); Blood Urea Nitrogen 19 mg/dL (9-16); Calcium 8.2 mg/dL (8.4-10.2); Carbon Dioxide 21 mmol/L (22-29); Chloride 113 mmol/L (96-108); Cholesterol 95 mg/dL (<200); Estimated Glomerular Filt Rate > 60; HDL Cholesterol 34 mg/dL (>40); Potassium 3.7 mmol/L (3.3-5.1); Sodium 143 mmol/L (135-145); Total Protein 5.7 g/dL (6.5-8.0); Triglycerides 52 mg/dL (<150)
[2025-04-18 06:25] LABS: Hematocrit 38.2 % (37.0-47.0); Hemoglobin 11.4 g/dl (12.0-16.0); Imm Gran Abs Auto 0.09 X10*3/uL (0.00-0.03); Imm Gran Pct Auto 0.8 % (0.0-0.4); Lymphocytes Absolute Auto 1.7 X10*3/uL (1.2-4.9); Mean Corpuscular HGB Conc 29.8 g/dl (31.0-35.0); Mean Corpuscular Hemoglobin 23.7 pg (27.0-33.0); Mean Corpuscular Volume 79.4 fL (80.0-98.0); NRBC Abs Auto 0.000 X10*3/uL (0.0-0.012); NRBC Pct Auto 0.0 /100WBC (0.0-0.2); Red Blood Count 4.81 X10*6/uL (4.20-5.50); White Blood Count 11.1 X10*3/uL (4.8-10.8)
[2025-04-18 06:28] LABS: Thyroid Stimulating Hormone 0.99 uIU/mL (0.32-4.0)
[2025-04-18 07:05] LABS: Platelet Count 1167 X10*3/uL (160-400)
== END 2025-04-18 05:42 | disposition home or self-care (01) ==
LOC: HO.MMNH3L 05:41
PROVIDERS: Visit Provider Student in an Organized Health Care Education/Training Program
DX: I48.0 Paroxysmal atrial fibrillation (principal); J44.9 Chronic obstructive pulmonary disease, unspecified; F32.1 Major depressive disorder, single episode, moderate; Z13.6 Encounter for screening for cardiovascular disorders
CPT/HCPCS: 36415; 80053; 80061; 84443; 85025

== ENCOUNTER 2025-04-26 11:56 | Outpatient (REF) | payer MEDICARE, MEDICAID, SELFPAY ==
[2025-04-26 12:07] LABS: MANUAL DIFF FLAG NO
[2025-04-26 12:36] LABS: Hematocrit 38.3 % (37.0-47.0); Hemoglobin 11.8 g/dl (12.0-16.0); Imm Gran Abs Auto 0.01 X10*3/uL (0.00-0.03); Imm Gran Pct Auto 0.2 % (0.0-0.4); Lymphocytes Absolute Auto 1.3 X10*3/uL (1.2-4.9); Mean Corpuscular HGB Conc 30.8 g/dl (31.0-35.0); Mean Corpuscular Hemoglobin 23.6 pg (27.0-33.0); Mean Corpuscular Volume 76.8 fL (80.0-98.0); NRBC Abs Auto 0.000 X10*3/uL (0.0-0.012); NRBC Pct Auto 0.0 /100WBC (0.0-0.2); Red Blood Count 4.99 X10*6/uL (4.20-5.50); White Blood Count 5.1 X10*3/uL (4.8-10.8)
[2025-04-26 13:02] LABS: Platelet Count 1307 X10*3/uL (160-400)
--- OUTSIDE RECORDS SUMMARY | 2025-04-26 15:08 | XMS_ITS | Data Portability ---
Author Organization [place] [facility] Address [address] [place] [address] Care Team Providers Care Driving Teacher Name Role Phone ALONSO ANDINO Primary Care Provider Assessment Encounter Date Assessment Date Assessment LastModified by Organization Details LastModified Time 05/27/2022 05/27/2022 Overview/History : 72 YO F new to DH and new to provider She is being [...] note she recently moved up here from [place] to move into an [facility]. She is not a great historian. She gives me a med list with only a few medicines however she has pill packs from [place] that are totally different medicines that her [...] James agree and recc emeregent eval at [facility] PE - no s/s DVT< no hemoptysis, [...] Was able to discuss w/ PCP from [place] Dr Andino office who was only able to give me limited information and confirm she has seen cardiology in the past. Dr Mcarthur in [place] is private advisor, I did have their number but I [...] [facility] Expect called to [facility] w/ very thorough reasons for escalation adn I was thanked for this level of detail. I did pass along pt PCP names and specialist names I had from MD. Pt is on agreement and verbalizes understanding [...] LastModifiedBy Organization Detail LastModifiedTime 06/27/20 22 elect rocar diogr am No observ ation record ed. [email or web address] Not Available 10:31:15 Result Notes None recorded. Procedures Surgical History Date Name Laterality Status Provider Name and Address Organization Details Recorded Time Medication Review completed SAMSON Hadley [address], [place], [address], [place] [facility] 05/27/2022 10:20:35 ECG Interpretation - completed SAMSON Hadley [address], [place], [address], [place] [facility] 05/27/2022 10:23:27 Cataract Surgery completed SAMSON Avila [address], [place], [address], [place] [facility] 05/27/2022 09:22:29 bypass of stomach completed SAMSON Landers [address], [place], [address], [place] [facility] 05/27/2022 09:22:41 Imaging Results None recorded. Procedure Notes None recorded. Medical Equipment None [...] Pulse oximetry Body temperature Respiratory rate Systolic And Diastolic Provider Name and Address Organization Details Last Updated DateTime 2 120 /min 98 % 98 % 98.2 [degF] 18 /min 142/80 mm[Hg] Not Available [facility] 2 09:22:36 Social History Question Answer Notes LastModified by Organizat ion Details LastModified Time Tobacco Smoking Status Former Smoker SAMSON Hadley [address], [place], [address], [place] [facility] 05/27/2022 09:22:59 When Did You Quit Smoking? 1-5yearssinc elastcigaret te Information not available 05/27/2022 Sex: Unknown Functional Status Question Answer Note LastModified by Organizat ion Details LastModified Time Do you use any illicit or recreational drugs? No Information not available 05/27/2022 What is your level of alcohol consumption? Occasional Information not available 05/27/2022 Mental Status None recorded. Family History Relationship [...] ICD10 Code Diagnosis IMO Codes Diagnosis Note [id number] SAMSON Eli [facility] [address] [place] [address] 05/27/2022 08:28:33 05/28/2022 15:07:31 Tachycardia 0524164 R00.0 Community acquired pneumonia 916880638 J18.9 Irregular heart beat 361 158932 R00.8 Health Concerns Section Related Observation LastModified by Organization Detai ls LastModified Time None Recorded Concern Status LastModified by Organization Details LastModified Time None Recorded Advance Directives Directive None Recorded Payers Insurance Date Sequence Insurance Name Policy Number Policy Burdick Covered Member ID Burdick Member ID Guarantor Name 05/27/2022 1 *SELF PAY* Hillary Mckeesport [id number] Hillary Mckeesport 06/02/2022 1 MEDICARE B-[place]: [employer] Hillary Pena Mckeesport [id number] Hillary Mckeesport 06/02/2022 2 CHRISTOPHER (CHRISTOPHER) Hillary Mckeesport [id number] Hillary Mckeesport Notes Date Note Type Note Provider Name and Address Organization Details Recorded Time 05/27/2022 text/html 72 YO F new to DH and new to providerShe is being seen [...] note she recently moved up here from [place] to move into an [facility]. She is not a great historian. She gives me a med list with only a few medicines however she has pill packs from [place] that are totally different medicines that her [...] other reported sxs today. SAMSON Hadley [address], [place], [address], [place] [facility] 05/27/2022 10:31:24 OBGyn Episode No OBEpisode recorded.
--- OUTSIDE RECORDS SUMMARY | 2025-04-26 15:08 | XMS_ITS | Data Portability ---
Author Organization [facility] [employer] [facility], Main Office Address [address] [place] [address] Care Team Providers Care Opal Polisher Name Role Phone MARCIO DONG 3RD FLOOR OTHER Assessment Encounter Date Assessment Date Assessment LastModified by Organization Details LastModified Time 10/26/2024 10/26/202410/24 wbc=12.2 hb=13.3 erb=5639 bun=11 cre=0.69 10/26 wbc 9, hgb 12.1, Plt 1017 Not available 10/26/2024 12:27:13 11/16/2024 11/16/202410/24 wbc=12.2 hb=13.3 gks=4192 bun=11 cre=0.69 10/26 wbc 9, hgb 12.1, [...] Address Organization Details Recorded Time Recurrent falls 585587529 Active 2022 JUAN MANUEL MORALES NP [address], [place], [address], [facility] [employer] 11:13:43 Osteoarthr itis 547053693 Active 2022 JUAN MANUEL MORALES NP [address], [address], [place], [address], [employer] [facility] 11:13:48 Chronic obstructiv e pulmonary disease 60104413 Active 2022 JUAN MANUEL MORALES NP [address], [place], [address], [facility] 11:13:52 Gastroesop hageal reflux disease without esophagiti s 308175136 Active 2022 JUAN MANUEL MORALES NP [address], [place], [address], [facility] 11:13:58 Congestive heart failure 16377674 Active 2022 JUAN MANUEL MORALES NP [address], [address], [place], [address], [facility] 11:14:03 Atrial fibrillati on 28643679 Active 2022 JUAN MANUEL MORALES NP [address], [address], [place], [address], [facility] 11:14:08 Hematoma of right thigh 201385178343 74212 Active 2022 JUAN MANUEL MORALES NP [address], [address], [place], [address], [facility] 11:14:21 Essential hypertensi on 61390632 Active 2022 JUAN MANUEL MORALES NP [address], [place], [address], [facility] 11:40:46 Hyperlipid emia 78722250 Active 2022 JUAN MANUEL MORALES NP [address], [place], [address], [facility] 11:41:07 Mixed anxiety and depressive disorder 759524428 Active 2022 JUAN MANUEL MORALES NP [address], [place], [address], [place] [facility] 11:41:48 Impaired cognition 010670684 Active 2022 Sandra Morrison MD [address], [address], [place], [address], [facility] [employer] [facility] 01:04:56 Overactive urinary bladder 295713112 Active 2022 Sandra Morrison MD [address], [address], [place], [address], [facility] [employer] [facility] 3 01:13:05 Dry eyes 236766510 Active 2022 Sandra Morrison MD [address], [place], [address], [facility] 01:14:09 Hematoma 306294311 Active 2022 left buttock JUAN MANUEL MORALES, TONY [address], [address], [place], [address], [facility] 13:03:34 Leukocytos is 135301443 Active 2023 JUAN MANUEL MORALES NP [address], [place], [address], [facility] 12:21:55 Restless legs syndrome 73716047 Active 2023 Sandra Morrison MD [address], [place], [address], [facility] 18:41:39 Mixed urinary incontinen ce 606012306 Active 2023 Sandra Morrison MD [address], [place], [address], [facility] [employer] [facility] 18:42:46 Bacterial conjunctiv itis 086483132 Active 2023 REGI COLÓN [address], [place], [address], [facility] [employer] [facility] 17:01:03 Thrombocyt osis 9588380 Active 2024 Abhi Erickson MD [address], [place], [address], [facility] 13:01:15 Notes:Some problems listed i n Document: #[id number] could not be added to this patient's [...] 167.64 cm 140/80 mm[Hg] Abhi Erickson MD [address] [place] [address], [place], [address], [facility] 10/24/2024 12:57:01 Date Recorded Body height Provider Name an d Address Organization Details Last Updated DateTime 01/18/2025 167.64 cm REGI COLÓN [address] [place] [address], [place], [address], [facility] 01/19/2025 18:53:56 Social History Question Answer Notes LastModified by Organizat ion Details LastModified Time Tobacco Smoking Status Former Smoker JUAN MANUEL MORALES NP [address] [place] [address], [place], [address], [employer] [facility] 08/08/2022 11:11:20 Do You Have An Advance Directive? Yes Information not available 08/11/2022 What Is Your Code Status? Full Code Information not available 08/11/2022 Where Do You Live? [facility], Previously Lived Alone, No Stairs Information not available 05/15/2023 Legal Guardian? 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 Yes Information not available 08/12/2022 What Was [...] PF 05/22/2022 completed Maryam hernandez [place] - [facility] 07/30/2023 12:41:28 Past Encounters Encounter ID Performer Location Encounter Start Date Encounter Closed Date Diagnosis/Indication Diagnosis SNOMED-CT Code Diagnosis ICD10 Code Diagnosis IMO Codes Diagnosis Note [id number] TONY ALMARAZ [address] [facility] [place] [address] 08/08/2022 09:43:58 08/12/2022 10:33:59 Recurrent falls 978753721 R29.6 PT OT eval and treatfall precaution sfrequent safety checks Hematoma o f right thigh 0888516304 1598757 S70.11XA change dressing per ordersmoni tor for increased swellingav oid further falls Atrial fibrillation 4943 6004 I48.91 amiodarone 200 mg dailyeiliq uis 5 mg bidbisopro lol 2.5 mg daily Chronic ob structive pulmonary disease 34127713 J44.9 albuterol inhaler q4hr prnadvair 100/25 daily Congestive heart failure 11855958 I50.9 lasix 20 mg dailylosar miller 25 mg daily Osteoarthritis 809009527 M19.90 cholecalci ferol 2000 dailyrisen dronate 35 weekly Gastroesop hageal reflux disease without esophagitis 450231288 K21.9 CaCarb 500 bidprotoni x 40 mg daily Essential hypertension 09356323 I10 amlodipine 5 mg dailycloni dine 0.1 mg q12 hr Hyperlipidemia 49191257 E78.5 atorvastat in 40 mg daily Mixed anxi ety and depressive disorder 267628360 F41.8 bupropion er 150 mg dailytrazo done 100 mg hs JUAN MANUEL MORALES NP [facility] [address] [place] [address] 08/11/2022 14:11:22 08/13/2022 13:57:19 Hematoma of right thigh 6529993738 2655969 S70.11XA change dressing per ordersmoni tor for increased swellingav oid further falls Congestive heart failure 29242485 I50.9 lasix 20 mg dailylosar miller 25 mg daily [id number] MD MARCIO Ramirez [address] [place] [address] 08/12/2022 17:25:40 08/18/2022 16:13:47 Hematoma of right thigh 4835876135 1263433 S70.11XD With minimal drainage from drains.Lik bruno will get removed at appt tomorrow.M onitor thigh for healing.Mo nitor CBC. Congestive heart failure 50255905 I50.22 Appears euvolemic. Continue bisoprolol 2.5 mg qd, lasix 20 mg qd and losartan 25 mg qd.Monitor resp. status, fluid status, wts and labs. Recurrent falls 61425226 2 R29.6 Very deconditio demetrius.Needs PT/OT for strengthen ing, balance, gait training, safety and function.C ontinue fall precaution s.Monitor for safety. Atrial fibrillation 4943 6004 I48.0 Rate in good control on meds as above and amiodarone 200 mg qd.Continu e eliquis 5 mg BID for AC.Monitor HR and bleeding risk. Chronic ob structive pulmonary disease 68434830 J43.8 At baseline.C ontinue Advair 100/25 mcg BID and albuterol MDI 2 puffs q 4 hrs prn.Monito r resp. status. Gastroesop hageal reflux disease without esophagitis 447855318 K21.9 No current sxs.Contin ue pantoprazo le 40 mg qd.Monitor sxs. Essential hypertension 52316770 I10 Systolic has been high periodical ly, likely due to pain.No change in meds for now.Contin ue meds as above and amlodipine 5 mg qd and clonidine 0.1 mg BID.Monito r BP and labs. Hyperlipidemia 61447543 E78.49 Continue atorvastat in 40 mg qd.Monitor labs as outpt. Mixed anxi ety and depressive disorder 400081205 F41.8 Mood ok tonight.Co ntinue bupropion ER 150 mg qd and trazodone 100 mg qhsMonitor mood.Psych consult prn. Osteoporosis 72611535 M8 1.0 Continue cholecalci ferol 2000 IU qd, calcium 500 mg BID, and risedronat e 35 mg weeklyMoni tor as outpt. [id number] TONY ALMARAZ [address] [place] [address] 08/14/2022 11:52:29 08/18/2022 16:23:58 Chronic obstructive pulmonary disease 54310753 J44.9 albuterol inhaler q4hr prnadvair 100/25 daily Congestive heart failure 18077023 I50.9 lasix 20 mg dailylosar miller 25 mg daily [id number] JUAN MANUEL MORALES NP [address] [address] 08/20/2022 13:24:34 08/22/2022 13:09:35 Chronic obstructive pulmonary disease 83275733 J43.8 albuterol inhaler q4hr prnadvair 100/25 daily Mixed anxi ety and depressive disorder 490464601 F41.8 bupropion er 150 mg dailytrazo done 100 mg hsmonitor and chart any changes in mood or behaviorsp sych prn [id number] J[facility]EL [facility]ES [facility] [address] [place] [address] 08/27/2022 10:50:59 09/02/2022 10:27:22 Hematoma of right thigh 2596131948 0240465 S70.11XD change dressing per ordersmoni tor for increased swellingav oid further fallsWBAT Chronic ob structive pulmonary disease 35120990 J43.8 albuterol inhaler q4hr prnadvair 100/25 daily Recurrent falls 66289810 2 R29.6 PT OT eval and treatfall precaution sfrequent safety checks [id number] JUAN MANUEL TONY MORALES [facility] [address] [place] [address] 09/03/2022 10:52:54 09/05/2022 13:45:58 Chronic obstructive pulmonary disease 70371513 J43.8 albuterol inhaler q4hr prnadvair 100/25 daily Recurrent falls 38668400 2 R29.6 PT OT eval and treatfall precaution sfrequent safety checks [id number] JUAN MANUEL TONY MORALES [address] [address] 09/05/2022 10:51:26 09/09/2022 07:59:39 Recurrent falls 864641850 R29.6 PT OT eval and treatfall precaution sfrequent safety checks Hematoma o f right thigh 7958126939 9320170 S70.11XA [facility] for increased swellingav oid further falls Atrial fibrillation 4943 6004 I48.91 amiodarone 200 mg dailyeiliq uis 5 mg bidbisopro lol 2.5 mg daily Chronic ob structive pulmonary disease 10049642 J44.9 albuterol inhaler q4hr prnadvair 100/25 daily Congestive heart failure 68005791 I50.9 lasix 20 mg dailylosar miller 25 mg daily Osteoarthritis 993675500 M19.90 cholecalci ferol 2000 dailyrisen dronate 35 weekly Gastroesop hageal reflux disease without esophagitis 857788939 K21.9 CaCarb 500 bidprotoni x 40 mg daily Essential hypertension 36480876 I10 amlodipine 5 mg dailycloni dine 0.1 mg q12 hr Hyperlipidemia 53584607 E78.5 atorvastat in 40 mg daily Mixed anxi ety and depressive disorder 638390750 F41.8 bupropion er 150 mg dailytrazo done 100 mg hs [id number] Sandra Morrison MD [facility] [address] [place] [address] 10/07/2022 18:29:02 10/10/2022 15:21:01 Abrasion and/or friction burn of back without infection 20342908 S30.810A With open abrasion.W ill use local care and protection with dressings and monitor sxs. Fall W18.39XA Pt. reminded to call for help when she wants to get up.Continu es to need PT/OT for strengthen ing, balance, gait training, safety and function.C ontinue fall precaution s.Monitor for safety. Essential hypertension 13643525 I10 Systolic was very high this AM, not rechecked since fall. Overall good recently.C ontinue bisoprolol 2.5 mg qd, lasix 20 mg qd, losartan 25 mg qd. amlodipine 5 mg qd and clonidine 0.1 mg BID.Monito r BP and labs. [id number] Sandra Morrison MD [address] [place] [address] 10/09/2022 13:55:48 10/14/2022 11:00:12 Abrasion and/or friction burn of back without infection 00930995 S30.810A Abrasion healing.Co ntinue local care and protection with dressings and monitor sxs. fall W18.39XA Fall 2 days ago.Contin ues to need PT/OT for strengthen ing, balance, gait training, safety and function.C ontinue fall precaution s.Monitor for safety. Essential hypertension 78937832 I10 Continues with intermitte nt elevated SBP, [...] and labs. Hematoma o f right thigh 5417704381 7160174 S70.11XD Healed.CBC stable. Congestive heart failure 24133918 I50.22 Continues to be euvolemic. Continue bisoprolol 2.5 mg qd, lasix 20 mg qd and losartan 25 mg qd.Monitor resp. status, fluid status, wts and labs. Atrial fibrillation 4943 6004 I48.0 Rate remains in good control on meds as above and amiodarone 200 mg qd.Continu e eliquis 5 mg BID for AC.Monitor HR and bleeding risk. Chronic ob structive pulmonary disease 51214404 J43.8 Continues at baseline.C ontinue Advair 100/25 mcg BID and albuterol MDI 2 puffs q 4 hrs prn.Monito r resp. status. Osteoporosis 19679422 M8 1.0 Continue cholecalci ferol 2000 IU qd, calcium 500 mg BID, and risedronat e 35 mg weeklyMoni tor as outpt. Gastroesop hageal reflux disease without esophagitis 045097521 K21.9 No current sxs.Contin ue pantoprazo le 40 mg qd.Monitor sxs. Hyperlipidemia 30305630 E78.49 Continue atorvastat in 40 mg qd.Monitor labs as outpt. Mixed anxi ety and depressive disorder 476621622 F41.8 Mood ok tonight.Co ntinue bupropion ER 150 mg qd, Buspar 5 mg qd, and trazodone 100 mg qhsMonitor mood.Psych consult prn. Impaired cognition 24617 6002 R41.89 Oriented today, but with frequent episodes of confusion. Continue supportive care, expect decline.HC P invokedMon itor mood and behaviors. Psych consult prn. Overactive urinary bladder 445961801 N32.81 Per pt. has been on Gemtesa in the past, would like to restart.Ge mtesa 75 mg qd.Monitor urinary function. Restless l egs syndrome 99065871 G25.81 With increased sxs of RLS.Will start requip 0.25 mg qhs.Monito r sxs. Dry eyes 454701080 H04.1 23 Will start natural tears q 2 hrs prn, may leave at bedside.Mo nitor sxs. [id number] TONY ALMARAZ [address] [place] [address] 10/13/2022 12:47:26 10/15/2022 12:27:09 Hematoma 576016328 M79.81 sent to ED for further eval as it is expanding [id number] TONY ALMARAZ [address] [place] [address] 10/17/2022 10:23:03 10/22/2022 16:06:33 Hematoma 492754319 M79.81 oxycodone 2.5 mg q6hr prn for 5 daysmonito r for healibng Recurrent falls 91075165 2 R29.6 PT OT eval and treatfall precaution sfrequent safety checks Hematoma o f right thigh 9564134071 4212622 S70.11XA resolvedav oid further falls Atrial fibrillation 4943 6004 I48.91 amiodarone 200 mg dailyeiliq uis 5 mg bidbisopro lol 2.5 mg daily Chronic ob structive pulmonary disease 30796926 J44.9 albuterol inhaler q4hr prnadvair 100/25 daily Congestive heart failure 47247307 I50.9 lasix 20 mg dailylosar miller 25 mg daily Osteoarthritis 651385442 M19.90 cholecalci ferol 2000 dailyrisen dronate 35 weekly Gastroesop hageal reflux disease without esophagitis 149088511 K21.9 CaCarb 500 bidprotoni x 40 mg daily Essential hypertension 39810488 I10 amlodipine 5 mg dailycloni dine 0.1 mg q12 hr Hyperlipidemia 06996273 E78.5 atorvastat in 40 mg daily Mixed anxi ety and depressive disorder 850535570 F41.8 bupropion er 150 mg dailybuspa r 5 mg dailytrazo done 100 mg hs Overactive urinary bladder 867151208 N32.81 Gemtesa 75 mg qd.Monitor urinary function. [id number] JUAN MANUEL MORALES NP [address] [address] 10/20/2022 12:38:53 10/22/2022 16:25:33 Hematoma 913045404 M79.81 oxycodone 2.5 mg q6hr prn for 5 daysmonito r for healing Recurrent falls 17115902 2 R29.6 PT OT eval and treatfall precaution sfrequent safety checks [id number] JUAN MANUEL MORALES NP [address] [address] 10/24/2022 10:45:27 10/28/2022 12:44:55 Hematoma 463171424 M79.81 oxycodone 2.5 mg q6hr prn for 5 daysmonito r for healing Impaired cognition 56821 6002 R41.89 Oriented intermitte ntly, but with frequent episodes of confusion. Continue supportive care, expect decline.HC P invokedMon itor mood and behaviors. Psych consult prn. [id number] JUAN MANUEL MORALES NP MARCIO DONG [address] [place] [address] [place] [address] 10/29/2022 13:57:22 10/31/2022 15:54:37 Hematoma 892149781 M79.81 monitor for healing Recurrent falls 84827984 2 R29.6 PT OT eval and treatfall precaution sfrequent safety checks Hematoma o f right thigh 7569830945 9861743 S70.11XA resolvedav oid further falls Atrial fibrillation 4943 6004 I48.91 amiodarone 200 mg dailyeiliq uis 5 mg bidbisopro lol 2.5 mg daily Chronic ob structive pulmonary disease 37004076 J44.9 albuterol inhaler q4hr prnadvair 100/25 daily Congestive heart failure 50502707 I50.9 lasix 20 mg dailylosar miller 25 mg daily Osteoarthritis 328303929 M19.90 cholecalci ferol 2000 dailyrisen dronate 35 weekly Gastroesop hageal reflux disease without esophagitis 348848497 K21.9 CaCarb 500 bidprotoni x 40 mg daily Essential hypertension 93023674 I10 amlodipine 5 mg dailycloni dine 0.1 mg q12 hr Hyperlipidemia 33427338 E78.5 atorvastat in 40 mg daily Mixed anxi ety and depressive disorder 105048623 F41.8 bupropion er 150 mg dailybuspa r 5 mg dailytrazo done 100 mg hs Overactive urinary bladder 503944156 N32.81 Gemtesa 75 mg qd.Monitor urinary function. [id number] MD MARCIO Cline [facility] [address] [place] [address] [place] [address] 01/28/2023 07:59:08 01/30/2023 15:30:48 Impaired cognition 386671815 R41.89 will monitor and support as neededI did not feel that I could invoke patient's HCP proxy today as she was quite appropriat e in her answers to my questions with even some insight. Chronic ob structive pulmonary disease 89382349 J41.0 Advair 250-50: one puff [id number] rol HFA: 2 puffs q4h prnwill monitor Atrial fibrillation 4943 6004 I48.0 apixaban 5 mg bidbisopro lol 2.5 mg dailyamiod arone 200 mg dailywill monitor Essential hypertension 38897231 I10 bisoprolol 2.5 mg dailyamlod ipine 5 mg dailyfuros emide 20 mg dailylosar miller 25 mg dailycloni dine 0.1 mg [id number] monitor Mixed anxi ety and depressive disorder 688988692 F41.8 buspirone 5 mg tidtrazodo ne 100 mg at hsbupropri on 100 mg dailyescit alopram 10 mg dailyhydro xyzine 10 mg q8h prn anxietywil l monitor Overactive urinary bladder 474594652 N32.81 vibegron 75 mg dailywill monitor Restless l egs syndrome 68723452 G25.81 ropinirole 0.25 mg dailywill monitor Gastroesop hageal reflux disease without esophagitis 501427824 K21.9 pantoprazo le 40 mg dailywill monitor Primary osteoporosis 276 422579 M81.0 risendrona te 25 mg weeklywill monitor Chronic sy stolic heart failure 523265108 I50.22 losartan 25 mg dailyfuros emide 20 mg dailybisop rolol 2.5 mg dailywill monitor [id number] TONY ALMARAZ [address] [address] 03/20/2023 16:32:09 03/27/2023 09:38:51 Overactive urinary bladder 604405307 N32.81 urology consult prnMonitor urinary function. Impaired cognition 47661 6002 R41.89 will monitor and support as needed Chronic ob structive pulmonary disease 45373363 J41.0 Advair 250-50: one puff [id number] rol HFA: 2 puffs q4h prnwill monitor Atrial fibrillation 4943 6004 I48.0 apixaban 5 mg bidbisopro lol 2.5 mg dailyamiod arone 200 mg dailywill monitor Essential hypertension 31090363 I10 bisoprolol 2.5 mg dailyamlod ipine 5 mg dailyfuros emide 20 mg dailylosar miller 25 mg dailycloni dine 0.1 mg [id number] monitor Mixed anxi ety and depressive disorder 813001077 F41.8 buspirone 5 mg tidtrazodo ne 100 mg at hsbupropri on 100 mg dailyescit alopram 10 mg dailyhydro xyzine 10 mg q8h prn anxietywil l monitor Restless l egs syndrome 73437100 G25.81 ropinirole 0.25 mg dailywill monitor Gastroesop hageal reflux disease without esophagitis 462861409 K21.9 pantoprazo le 40 mg dailywill monitor Primary osteoporosis 276 836705 M81.0 risendrona te 25 mg weeklywill monitor Chronic sy stolic heart failure 096124837 I50.22 losartan 25 mg dailyfuros emide 20 mg dailybisop rolol 2.5 mg dailywill monitor Recurrent falls 76571646 2 R29.6 PT OT eval and treatfall precaution sfrequent safety checks [id number] Sandra Morrison MD [address] [place] [address] 05/15/2023 17:56:32 05/19/2023 11:07:46 Fall 1067543 R29.6 Hx of fallsConti nue fall precaution s.Monitor for safety. Essential hypertension 32208953 I10 Good control.Co ntinue bisoprolol 2.5 mg qd, lasix 20 mg qd, losartan 25 mg qd. amlodipine 5 mg qd and clonidine 0.1 mg BID.Monito r BP and labs. Hematoma o f right thigh 7285971547 1583845 S70.11XD Healed.CBC stable. Impaired cognition 52100 6002 R41.89 Mild confusion today, but fairly oriented.C ontinue supportive care, expect decline.HC P invokedMon itor mood and behaviors. Psych consult prn. Congestive heart failure 09851812 I50.22 Continues to be euvolemic. Continue bisoprolol 2.5 mg qd, lasix 20 mg qd and losartan 25 mg qd.Monitor resp. status, fluid status, wts and labs. Atrial fibrillation 4943 6004 I48.0 Rate remains in good control on meds as above and amiodarone 200 mg qd.Continu e eliquis 5 mg BID for AC.Monitor HR and bleeding risk. Chronic ob structive pulmonary disease 16450318 J43.8 Continues at baseline.C ontinue Advair 100/25 mcg BID and albuterol MDI 2 puffs q 4 hrs prn.Monito r resp. status. Osteoporosis 42781620 M8 1.0 Continue cholecalci ferol 2000 IU qd, calcium 500 mg BID, and risedronat e 35 mg weeklyMoni tor as outpt. Gastroesop hageal reflux disease without esophagitis 972659205 K21.9 No current sxs.Contin ue pantoprazo le 40 mg qd.Monitor sxs. Hyperlipidemia 71819787 E78.49 Continue atorvastat in 40 mg qd.Monitor labs as outpt. Mixed anxi ety and depressive disorder 998505305 F41.8 Mood ok tonight.Co ntinue bupropion ER 100 mg qd, Buspar 5 mg TID, clonidine 0.1 m BID, and trazodone 100 mg qhsMonitor mood.Psych consult prn. Restless l egs syndrome 99510789 G25.81 Continue requip 0.25 mg qhs.Monito r sxs. Mixed urin laura incontinence 788913999 N39.46 Continue estring 2 mg q 3 months and estrace cream 2 gms 3x/wkMonit or urinary function.F /U with uro prn. Visual hallucinations 64 699898 R44.1 Psych consult for visual and auditory hallucinat ions.[place] ring to pt. [id number] TONY ALMARAZ [address] [place] [address] [place] [address] 07/10/2023 12:52:00 07/21/2023 11:22:40 Overactive urinary bladder 858436726 N32.81 urology consult prnMonitor urinary function.d -mannose 500 mg daily uti preventati ve Impaired cognition 80968 6002 R41.89 will monitor and support as needed Chronic ob structive pulmonary disease 95340830 J41.0 Advair 250-50: one puff [id number] rol HFA: 2 puffs q4h prnwill monitor Atrial fibrillation 4943 6004 I48.0 apixaban 5 mg bidbisopro lol 2.5 mg dailyamiod arone 200 mg dailywill monitor Essential hypertension 43009472 I10 bisoprolol 2.5 mg dailyamlod ipine 5 mg dailyfuros emide 20 mg dailylosar miller 25 mg dailycloni dine 0.1 mg [id number] monitor Mixed anxi ety and depressive disorder 941775076 F41.8 buspirone 5 mg tidtrazodo ne 100 mg at hsbupropri on 100 mg dailyescit alopram 10 mg dailyhydro xyzine 10 mg q8h prn anxietywil l monitor Restless l egs syndrome 59239859 G25.81 ropinirole 0.25 mg dailywill monitor Gastroesop hageal reflux disease without esophagitis 476054021 K21.9 pantoprazo le 40 mg dailywill monitor Primary osteoporosis 276 818418 M81.0 risendrona te 25 mg weeklywill monitor Chronic sy stolic heart failure 359450104 I50.22 losartan 25 mg dailyfuros emide 20 mg dailybisop rolol 2.5 mg dailywill monitor Recurrent falls 87191143 2 R29.6 PT OT eval and treatfall precaution sfrequent safety checks [id number] JUAN MANUEL MORALES NP [address] [address] 07/15/2023 12:09:17 07/21/2023 14:31:17 Leukocytosis 243574507 D72.829 UA C/Scxr [id number] aMrtina Vidalburn Hazel [address] [address] 08/28/2023 10:48:09 10/26/2023 15:56:34 Atrial fibrillation 55966425 I48.0 chronic, stable. RCcontinue eliquiscon tinue norvasccon tinue amiodarone monitor HR Chronic ob structive pulmonary disease 81588465 J41.0 chronic stablecont inue inhalersmo nitor for changes in respirator y status Congestive heart failure 49266301 I50.22 chronic, stablecont inue lasix 20mg dailymonit or BMP Essential hypertension 84136557 I10 chronic stablecont inue norvasc and losartanal so on lasix Hyperlipidemia 86822919 E78.49 continue atorvastat inmonitor lipids annually [id number] Jenni Kwong MD [address] [place] [address] 09/09/2023 08:10:55 09/15/2023 10:16:26 Impaired cognition [id number] R41.89 will monitor and support as needed Mixed anxi ety and depressive disorder 621242467 F41.8 buspirone 5 mg tidtrazodo ne 100 mg at hsbupropri on 100 mg dailyescit alopram 10 mg dailyhydro xyzine 10 mg q8h prn anxietywil l monitor Atrial fibrillation 4943 6004 I48.0 apixaban 5 mg bidbisopro lol 2.5 mg dailyamiod arone 200 mg dailywill monitor Essential hypertension 90805981 I10 bisoprolol 2.5 mg dailyamlod ipine 5 mg dailyfuros emide 20 mg dailylosar miller 25 mg dailycloni dine 0.1 mg [id number] monitor Hyperlipidemia 83130116 E78.49 atorvastat in 40 mg dailywill monitor Chronic ob structive pulmonary disease 41522523 J41.0 Advair 250-50: one puff [id number] rol HFA: 2 puffs q4h prnwill monitor Gastroesop hageal reflux disease without esophagitis 278697508 K21.9 pantoprazo le 40 mg dailywill monitor Restless l egs syndrome 53874706 G25.81 ropinirole 0.25 mg dailywill monitor Cobalamin deficiency 190 787323 E53.8 B12 500 mcg dailywill monitor [id number] [facility] [address] [place] [address] 09/21/2023 11:12:35 09/23/2023 09:57:55 Acute dermatitis 23167462 L30.9 left upper facial near left eye [...] provide new make up brushes Impaired cognition 14995 6002 R41.89 will monitor and support as needed [id number] [facility] MARCIO DONG [address] [place] [address] [place] [address] 09/22/2023 15:18:31 09/24/2023 12:07:21 Impaired cognition 695453712 R41.89 will monitor and support as needed Pain of le ft knee region [id number] 49579 M25.562 see hpiwill scheduled 975 mg tylenol TIDxray left knee 2 viewsconsi christiano PT/OT eval if imaging is negative for fx. [id number] [facility] IKER [address] [place] [address] [place] [address] 10/13/2023 18:47:09 10/15/2023 17:16:34 Cough 43774193 R05.9 10/11: started mucinex 600 mg q [...] dayincreas e oral hydrationm onitor resp status [id number] [facility] IKER [address] [place] [address] [place] [address] 10/29/2023 11:14:47 11/03/2023 12:16:03 Impaired cognition 481352819 R41.89 Continue supportive care, expect decline.HC P invokedMon itor mood and behaviors. Psych consult prn. Essential hypertension 04786363 I10 BP has been controlled with current medicatios .Continue bisoprolol 2.5 mg qd, lasix 20 mg qd, losartan 25 mg qd. amlodipine 5 mg qd and clonidine 0.1 mg BID.Monito r BP and labs. Congestive heart failure 40313658 I50.22 euvolemic. Continue bisoprolol 2.5 mg qd, lasix 20 mg qd and losartan 25 mg qd.Monitor resp. status, fluid status, wts and labs. Atrial fibrillation 4943 6004 I48.0 HR controlled continue amiodarone 200 mg qd.Continu e eliquis 5 mg BID for AC.Monitor HR and bleeding risk. Chronic ob structive pulmonary disease 87325854 J43.8 Continues at baseline.C ontinue Advair 100/25 mcg BID and albuterol MDI 2 puffs q 4 hrs prn.Monito r resp. status. Osteoporosis 20794579 M8 1.0 Continue cholecalci ferol 2000 IU qd, calcium 500 mg BID, and risedronat e 35 mg weeklyMoni tor as outpt. Gastroesop hageal reflux disease without esophagitis 521009692 K21.9 No current sxs.Contin ue pantoprazo le 40 mg qd.Monitor sxs. Hyperlipidemia 75263590 E78.49 Continue atorvastat in 40 mg qd.Monitor labs as outpt. Mixed anxi ety and depressive disorder 325861711 F41.8 Continue bupropion ER 100 mg qd, Buspar 5 mg TID, clonidine 0.1 m BID, and trazodone 100 mg qhs,lexapr o 10 mg daily and hydroxyzin e 10 mg qdMonitor mood.Psych consult prn. Restless l egs syndrome 14833709 G25.81 Continue requip 0.25 mg qhs.Monito r sxs. Mixed urin laura incontinence 694523195 N39.46 Continue estring 2 mg q 3 monthsMoni tor urinary function.F /U with uro prn. Tear of skin 880175796 T 14.8XXA LLE flap tear, approximat edcontinue to monitor healing. [id number] [facility] [address] [place] [address] 11/10/2023 12:24:35 11/23/2023 12:50:14 Pain of shoulder region 66098770 M25.519 right shoulder pain+ discomfort with abduction, suspect OAnursing to give now dose tylenol and continue prnPT/OT eval and treatwill monitor. [id number] [facility] [address] [place] [address] 11/25/2023 11:56:55 11/27/2023 12:02:47 Candidiasis of vagina 69869422 B37.31 vaginal redness appears yeastPatie nt has no discomfort start diflucan 150 mg Q72 for 3 dosesPt is incontinen t, nursing encourage to check for incontinen t episode and change Q2.keep skin clean and drymonitor for resolution [id number] MD MARCIO Ramirez IKER [address] [place] [address] rd [place] [address] 01/15/2024 21:46:22 02/02/2024 07:55:44 Impaired cognition 430286225 R41.89 Continues at baseline.C ontinue escitalopr am 10 mg qd, bupropion ER 100 mg qd, Buspar 5 mg TID, clonidine 0.1 m BID, trazodone 100 mg qhs, and hydroxyzin e 10 mg qd.Continu e supportive care, expect decline.HC P invokedMon itor mood and behaviors. Psych follows. Visual hallucinations 64 004205 R44.1 Psych follows, no mention of this in recent notes.Aida tor Essential hypertension 85831635 I10 Continues in good control.Co ntinue bisoprolol 2.5 mg qd, lasix 20 mg qd, losartan 25 mg qd. amlodipine 5 mg qd and clonidine 0.1 mg BID.Monito r BP and labs. Congestive heart failure 69413560 I50.22 Continues to be euvolemic. Continue bisoprolol 2.5 mg qd, lasix 20 mg qd and losartan 25 mg qd.Monitor resp. status, fluid status, wts and labs. Atrial fibrillation 4943 6004 I48.0 Rate in good control on meds as above and amiodarone 200 mg qd.Continu e eliquis 5 mg BID for AC.Monitor HR and bleeding risk. Chronic ob structive pulmonary disease 38832100 J43.8 Continues at baseline.C ontinue Advair 100/25 mcg BID and albuterol MDI 2 puffs q 4 hrs prn.Mucine x 600 mg BID added for cough in 10/2023.Mon itor resp. status. Osteoporosis 21745262 M8 1.0 Continue cholecalci ferol 2000 IU qd, calcium 500 mg BID, and risedronat e 35 mg weeklyMoni tor as outpt. Gastroesop hageal reflux disease without esophagitis 173443081 K21.9 No current sxs.Contin ue pantoprazo le 40 mg qd.Monitor sxs. Hyperlipidemia 70439349 E78.49 Continue atorvastat in 40 mg qd.Monitor labs as outpt. Mixed anxi ety and depressive disorder 704126006 F41.8 As above. Restless l egs syndrome 57951053 G25.81 She mentions this tonight.Co ntinue requip 0.25 mg qhs.Consid er increase to 0.5 mg qhs.Monito r sxs. Mixed urin laura incontinence 135998518 N39.46 Continue estring 2 mg q 3 months.Mon itor urinary function.F /U with uro prn. Cough 51110739 R05.9 Back to baseline.M onitor [id number] [facility] [address] [address] 02/24/2024 09:53:07 02/25/2024 10:07:37 Bacterial conjunctivitis 653219729 H10.9 see hpibilater al erythema, dry yellowish discharge noted on lashes and corners or eyesstart ofloxacin 0.3 % 2 gtts QID for 5 daysmonito r for resolution patient encouraged to avoid rubbing eyes, apply cool compress for comfort. [id number] [facility] [address] [address] 03/02/2024 10:16:42 03/04/2024 10:24:18 Bacterial conjunctivitis 404891547 H10.9 ofloxacin eye gtts completeds clera white, no drainage or discharge, denies didcomfort .bilateral erythema, dry yellowish discharge noted on lashes and corners or eyespatien t encouraged to avoid rubbing eyes, apply cool compress for comfort. Mixed anxi ety and depressive disorder 449727067 F41.8 followed by [facility] seen on 02/28 with recommenda tion for GDR she is currently on 4 psychotrop ic medication 03/02: decrease bupropion ER 100 mg qd to 75 mgcheck EKG for QTcContinu e , Buspar 5 mg TID, clonidine 0.1 m BID, and trazodone 100 mg qhs,lexapr o 10 mg daily and hydroxyzin e 10 mg qdMonitor mood.Psych prn [id number] [facility] [address] [address] 03/07/2024 15:12:42 03/09/2024 09:31:11 Recurrent falls 994196356 R29.6 see hpino acute injuries or reports of discomfort .nursing to continue post fall protocol. [id number] [facility] [address] [facility] [place] [address] 03/09/2024 10:14:06 03/15/2024 13:07:32 Impaired cognition 422277925 R41.89 Continue supportive care, expect decline.HC P invokedMon itor mood and behaviors. Psych consult prn. Essential hypertension 83260522 I10 Continue bisoprolol 2.5 mg qd, lasix 20 mg qd, losartan 25 mg qd. amlodipine 5 mg qd and clonidine 0.1 mg BID.Monito r BP and labs. Congestive heart failure 99550229 I50.22 euvolemic. she has been stableCont inue bisoprolol 2.5 mg qd, lasix 20 mg qd and losartan 25 mg qd.Monitor resp. status, fluid status, wts and labs. Atrial fibrillation 4943 6004 I48.0 denies any chest pain or other associated sx,continu e amiodarone 200 mg qd.Continu e eliquis 5 mg BID for AC.Monitor HR and bleeding risk. Chronic ob structive pulmonary disease 55312891 J43.8 Continues at baseline.C ontinue Advair 100/25 mcg BID and albuterol MDI 2 puffs q 4 hrs prn.Monito r resp. status. Osteoporosis 69970079 M8 1.0 Continue cholecalci ferol 2000 IU qd, calcium 500 mg BID, and risedronat e 35 mg weeklyMoni tor as outpt. Gastroesop hageal reflux disease without esophagitis 576082329 K21.9 tolerating a regular diet, no reported GI upsetConti nue pantoprazo le 40 mg qd.Monitor sxs. Hyperlipidemia 65783874 E78.49 Continue atorvastat in 40 mg qd.Monitor labs as outpt. Mixed anxi ety and depressive disorder 359318870 F41.8 Continue bupropion ER 100 mg qd, Buspar 5 mg TID, clonidine 0.1 m BID, and trazodone 100 mg qhs,lexapr o 10 mg daily and hydroxyzin e 10 mg qdMonitor mood.Psych consult prn. Restless l egs syndrome 28433829 G25.81 Continue requip 0.25 mg qhs.Monito r sxs. Mixed urin laura incontinence 628773047 N39.46 Continue estring 2 mg q 3 monthsMoni tor urinary function.F /U with uro prn. Bacterial conjunctivitis 453050840 H10.9 resolvedof loxacin eye gtts completeds stacy villalobos, no drainage or discharge, denies discomfort . Recurrent falls 00191239 2 R29.6 s/p fall 03/05no acute injuries or reports of discomfort .nursing to continue post fall protocol. [id number] [facility] [address] [address] 04/04/2024 13:13:21 04/05/2024 13:32:19 Viral conjunctivitis 64072951 B30.9 left eyeleft sclera erythema, lower lid swelling( aggravated by rubbing) with clear drainage.n o itchiness or discomfort start azelastine gtt BID for 14 day.monito r for resolution patient encouraged to avoid rubbing eyes, apply cool compress for comfort. [id number] [facility] [address] [place] [address] 04/07/2024 11:04:20 04/08/2024 12:46:40 Viral conjunctivitis 77706526 B30.9 left eye /stablelef t sclera erythema, lower lid swelling( aggravated by rubbing) with clear drainage.n o itchiness or discomfort start azelastine gtt BID for 14 day.- have not received med from pharmacy-m onitor for resolution patient encouraged to avoid rubbing eyes, apply cool compress for comfort. Acute urin laura tract infection 565497826 N39.0 see hpiwill start bactrim 400mg Q12 for 7 dayadd probiotic BIDencoura ged to have increased water consumptio n to flush out toxins Hypokalemia 88804391 E87 .6 subtle at 3.1will replete with kcl 20 meq times 2 daysmonito r for associated sx (weakness, cramping, twitching) patient to notify nursing staff with sx [id number] [facility] e [address] [facility] [place] [address] 04/28/2024 11:26:55 04/29/2024 11:42:54 Impaired cognition 650888978 R41.89 stableCont inue supportive care, expect decline.HC P invokedMon itor mood and behaviors. Psych consult prn. Essential hypertension 38232559 I10 Continue bisoprolol 2.5 mg qd, lasix 20 mg qd, losartan 25 mg qd. amlodipine 5 mg qd and clonidine 0.1 mg BID.Monito r BP and labs. Congestive heart failure 54951062 I50.22 euvolemic. she has been stableCont inue bisoprolol 2.5 mg qd, lasix 20 mg qd and losartan 25 mg qd.Monitor resp. status, fluid status, wts and labs. Atrial fibrillation 4943 6004 I48.0 denies any chest pain or other associated sx,continu e amiodarone 200 mg qd.Continu e eliquis 5 mg BID for AC.Monitor HR and bleeding risk. Chronic ob structive pulmonary disease 02723049 J43.8 Continues at baseline.C ontinue Advair 100/25 mcg BID and albuterol MDI 2 puffs q 4 hrs prn.Monito r resp. status. Osteoporosis 55289125 M8 1.0 Continue cholecalci ferol 2000 IU qd, calcium 500 mg BID, and risedronat e 35 mg weeklyMoni tor as outpt. Gastroesop hageal reflux disease without esophagitis 745181196 K21.9 tolerating a regular diet, no reported GI upsetConti nue pantoprazo le 40 mg qd.Monitor sxs. Hyperlipidemia 68953262 E78.49 Continue atorvastat in 40 mg qd.Monitor labs as outpt. Mixed anxi ety and depressive disorder 674033900 F41.8 Continue bupropion ER 100 mg qd, Buspar 5 mg TID, clonidine 0.1 m BID, and trazodone 100 mg qhs,lexapr o 10 mg daily and hydroxyzin e 10 mg qdMonitor mood.Psych consult prn. Restless l egs syndrome 72870844 G25.81 Continue requip 0.25 mg qhs.Monito r sxs. Mixed urin laura incontinence 594060684 N39.46 Continue estring 2 mg q 3 monthsMoni tor urinary function.F /U with uro prn. Acute urin laura tract infection 148515821 N39.0 completed abxencoura ged to have increased water consumptio n to flush out toxins Hypokalemia 15404798 E87 .6 subtle at 3.1will replete with kcl 20 meq times 2 daysmonito r for associated sx (weakness, cramping, twitching) patient to notify nursing staff with sx [id number] [facility] [address] [address] 05/09/2024 11:39:53 05/10/2024 13:50:01 Pain of shoulder region 59155932 M25.519 see HPInon traumatic right shoulder painGive now dose for tramadol 50 mg then tramadol 50 mg Q6 prnschedul e tylenol 1 g TIDxray 3 viewscan apply ice for pain or heat for comfort [id number] [facility] [address] [address] 05/19/2024 09:40:12 05/23/2024 12:46:45 Pain of shoulder region 80118402 M25.519 non traumatic right shoulder pain-xray negative for any acute findings.c ontinue tramadol 50 mg Q6 prnschedul e tylenol 1 g TID [id number] [facility] [address] [address] 06/16/2024 08:41:53 06/22/2024 12:46:48 Diplopia 52982690 H53.2 intermitte nt12/4 opthamolog y exam showed esophoria at distance , divergence insufficie ncy can be neurologic al neurology consult recommende d, otherwise follow up in 1 year. Impaired cognition 49404 6002 R41.89 Continue supportive care, expect decline.HC P invokedcon tinue to monitor mood and behaviors with recent med changes Essential hypertension 44457815 I10 Continue bisoprolol 2.5 mg qd, lasix 20 mg qd, losartan 25 mg qd. amlodipine 5 mg qd and clonidine 0.1 mg BID.Monito r BP and labs. Congestive heart failure 41216456 I50.22 euvolemic. she has been stableCont inue [...] bleeding risk. Chronic ob structive pulmonary disease 43828840 J43.8 Continue Advair 100/25 mcg BID and albuterol MDI 2 puffs q 4 hrs prn.Monito r resp. status. Osteoporosis 95620147 M8 1.0 Continue cholecalci ferol 2000 IU qd, calcium 500 mg BID, and risedronat e 35 mg weeklyMoni tor as outpt. Gastroesop hageal reflux disease without esophagitis 972370476 K21.9 tolerating a regular diet, no reported GI upsetpanto prazole discontinu ed due to QTc Hyperlipidemia 88965356 E78.49 Continue atorvastat in 40 mg qd.Monitor labs as outpt. Mixed anxi ety and depressive disorder 653440602 F41.8 nursing reports daily anxiety, currently on [...] of hydroxyzin e Restless l egs syndrome 86568634 G25.81 Continue requip 0.25 mg qhs.Monito r sxs. Mixed urin laura incontinence 126718750 N39.46 Continue estring 2 mg q 3 monthsMoni tor urinary function.F /U with uro prn. [id number] [facility] [address] [place] [address] 06/20/2024 10:53:20 06/21/2024 14:19:17 Diplopia 41199384 H53.2 intermitte nt12/4 opthamolog y exam showed esophoria at distance , divergence insufficie ncy can be neurologic al neurology consult recommende d, otherwise follow up in 1 year.she will discuss with family Mixed anxi ety and depressive disorder 867068326 F41.8 nursing reports daily anxiety, currently on [...] and bleeding risk. Prolonged QT interval 11 4293370 I45.81 HX afib.QTc 467GDR - amiodarone and protonix decreased, hydroxyzin e stoppedden ies any associated sx/ no dizziness, palpitatio n etc.repeat ekg in 1 week [id number] [facility] [address] [place] [address] [place] [address] 07/01/2024 08:22:16 07/04/2024 15:48:50 Respiratory tract congestion and cough 565970244 R05.9 non productive chest xray complete:T he lung johansen are clear without mass, infiltrate , congestion , or effusion. SARS-CoV-2 938145077 U07 .1 07/01 positive teststart Molnupirav ir 800 mg BID for 5 dayscontin ue supportive therapy with oxygen prnisolati on precaution [id number] [facility] [address] [place] [address] [place] [address] 07/04/2024 09:57:50 07/05/2024 09:55:44 Respiratory tract congestion and cough 476396811 R05.9 no cough appreciate d on exam SARS-CoV-2 486834098 U07 .1 07/01 positive testcopnti gregoria Dela Cruzupirav ir 800 mg BID for 5 dayscontin ue supportive therapy with oxygen prnisolati on precaution [id number] [facility] [address] [facility] [place] [address] 10/09/2024 10:55:30 10/13/2024 16:07:53 Mixed anxiety and depressive disorder 425615113 F41.8 stablecont inue escitalopr am, BusPIRone and trazodone Impaired cognition 30103 6002 R41.89 Continue supportive care, expect decline.HC P invokedcon tinue to monitor mood and behaviors with recent med changes Essential hypertension 02716226 I10 stableCont inue bisoprolol 2.5 mg qd, lasix 20 mg qd, losartan 25 mg qd. amlodipine 5 mg qd and clonidine 0.1 mg BID.Monito r BP and labs. Congestive heart failure 42486539 I50.22 euvolemic. stableCont inue bisoprolol 2.5 mg qd, lasix 20 mg qd and losartan 25 mg qd.Monitor resp. status, fluid status, wts and labs. Atrial fibrillation 4943 6004 I48.0 stablerate controlled cont amiodarone to 100 mg qdContinue eliquis 5 mg BID for AC.Monitor HR and bleeding risk. Chronic ob structive pulmonary disease 43240568 J43.8 stableCont inue Advair 100/25 mcg BID and albuterol MDI 2 puffs q 4 hrs prn.Monito r resp. status. Gastroesop hageal reflux disease without esophagitis 399614466 K21.9 stabletole rating a regular diet, no reported GI upsetpanto prazole discontinu ed due to QTc Hyperlipidemia 03666808 E78.49 Continue atorvastat in 40 mg qd.Monitor labs as outpt. [id number] Abhi Erickson MD [facility] [address] [place] [address] [place] [address] 10/12/2024 11:19:17 10/14/2024 08:28:33 Impaired cognition 112113200 R41.89 baseline impaired cognitionH CP invokedmon itor for behaviorsp sych eval prn Pruritic rash 30831121 L 28.2 eschar x 2 present left wristdoes not appear infectedsu rrounding pruritisat arax 25 mg q 8 prnmonitor for effect [id number] MD MARCIO Ayers [address] [place] [address] [place] [address] 10/24/2024 12:55:25 10/26/2024 11:39:25 Thrombocytosis 4777697 D75.839 D75.838 37201 acute thrombocyt osisrepeat stat cbc to recheck plt levelif remains elevated will starthydre a 1000 mg qd and request heme consult Leukocytosis 015798601 D 72.829 see above Impaired cognition 88605 6002 R41.89 baseline impaired cognitionH CP invokedcoo rdinate with HCP as needed for further workup [id number] DARVIN MARIE CNP [address] [place] [address] 10/26/2024 12:10:11 11/01/2024 08:15:11 Thrombocytosis 6470558 D75.839 D75.838 58895 acute thrombocyt osisimprov ing with hydrea 1000 mg daily.repe at stat cbc to recheck plt level next week.if remains elevated will startconti nue hydrea 1000 mg dialy and will request heme consult Leukocytosis 041368824 D 72.829 improving. see above Impaired cognition 40063 6002 R41.89 baseline impaired cognitionH CP invokedcoo rdinate with HCP as needed for further workup [id number] DARVIN MARIE CNP [address] [place] [address] 11/16/2024 10:25:17 11/18/2024 12:49:51 Thrombocytosis 4733387 D75.839 D75.838 89802 acute thrombocyt osisimprov ing with hydrea 1000 mg daily.Plt 300 on 11/14/24.elida l d/c hydrean 1000 mg and monitor CBC on Thursday, .R equest heme consult Leukocytosis 253249902 D 72.829 improving. see above Impaired cognition 99601 6002 R41.89 baseline impaired cognitionH CP invokedcoo rdinate with HCP as needed for further workup Mixed anxi ety and depressive disorder 405411344 F41.8 stablecont inue current psychotrop ic medication Essential hypertension 54805893 I10 stableCont inue bisoprolol 2.5 mg qd, lasix 20 mg qd, losartan 25 mg qd. amlodipine 5 mg qd and clonidine 0.1 mg BID.Monito r BP and labs. Congestive heart failure 21044207 I50.22 euvolemic. stableCont inue bisoprolol 2.5 mg qd, lasix 20 mg qd and losartan 25 mg qd.Monitor resp. status, fluid status, wts and labs. Atrial fibrillation 4943 6004 I48.0 stablerate controlled cont amiodarone to 100 mg qdContinue eliquis 5 mg BID for AC.Monitor HR and bleeding risk. Chronic ob structive pulmonary disease 74904000 J43.8 stableCont inue Advair 100/25 mcg BID and albuterol MDI 2 puffs q 4 hrs prn.Monito r resp. status. Gastroesop hageal reflux disease without esophagitis 494175812 K21.9 stabletole rating a regular diet, no reported GI upsetpanto prazole discontinu ed due to QTc Hyperlipidemia 12309783 E78.49 Continue atorvastat in 40 mg qd.Monitor labs as outpt. [id number] [facility] [address] [place] [address] 01/18/2025 05:50:29 01/20/2025 13:05:29 Mixed anxiety and depressive disorder 273013786 F41.8 stablecont inue escitalopr am, BusPIRone and trazodone Impaired cognition 45677 6002 R41.89 Continue supportive care, expect decline.HC P invokedcon tinue to monitor mood and behaviors with recent med changes Essential hypertension 89822974 I10 stableCont inue bisoprolol 2.5 mg qd, lasix 20 mg qd, losartan 25 mg qd. amlodipine 5 mg qd and clonidine 0.1 mg BID.Monito r BP and labs. Congestive heart failure 97177804 I50.22 euvolemic. stableCont inue bisoprolol 2.5 mg qd, lasix 20 mg qd and losartan 25 mg qd.Monitor resp. status, fluid status, wts and labs. Atrial fibrillation 4943 6004 I48.0 stablerate controlled cont amiodarone to 100 mg qdContinue eliquis 5 mg BID for AC.Monitor HR and bleeding risk. Chronic ob structive pulmonary disease 76355106 J43.8 stableCont inue Advair 100/25 mcg BID and albuterol MDI 2 puffs q 4 hrs prn.Monito r resp. status. Gastroesop hageal reflux disease without esophagitis 915063860 K21.9 stabletole rating a regular diet, no reported GI upsetpanto prazole discontinu ed due to QTc Hyperlipidemia 54739215 E78.49 Continue atorvastat in 40 mg qd.Monitor labs as outpt. Health Concerns Section Related Observation LastModified by Organization Detai ls LastModified Time None Recorded Concern Status LastModified by Organization Details LastModified Time None Recorded Advance Directives Directive Y: Payers Insurance Date Sequence Insurance Name Policy Number Policy Burdick Covered Member ID Burdick Member ID Guarantor Name 01/18/2025 2 () Hillary [place] [id number] Hillary Naila 01/18/2025 1 MEDICARE [place]: [employer] Hillary Pena [place] [id number] Hillary Naila 10/17/2023 2 UNSPECIFIED REMIT PAYOR Hillary Yoo Notes Date Note Type Note Provider Name and Address Organization Details Recorded Time 10/12/2024 text/html Patient is a 74 yo female resident asked to al for MD visit with pruritis left hand. Patient with dementia at baseline, brother in room helps with hx. Patient sitting in wheelchair in NAD. Abhi Erickson MD [address] [place] [address], [address], [place], [address], [facility] 10/12/2024 11:58:18 10/24/2024 text/html Patient is a 74 yo female resident seen for acute rounding. CBC was ordered showing significant elevated of ktc=8107 and mild elevation of WBC. Patient with baseline dementia lying in bed in NAD Abhi Erickson MD [address] [facility], [address], [place], [address], [facility] [employer] 10/24/2024 13:06:12 10/26/2024 text/html Patient is a 74 yo female resident seen for acute rounding. CBC was ordered showing significant elevated of dfm=1620 and mild elevation of WBC on 10/24. Pt started hydrea 1000 mg daily. Repeat lab result reviewed today. Patient with baseline dementia lying in bed in NAD DARVIN MARIE CNP [address], [address], [place], [address], [facility] [facility] [employer] [facility] 10/26/2024 12:27:33 11/16/2024 text/html Patient is [...] so is now LTC. Pt had labs, iqs=8533 and mild elevation of WBC on 10/24. [...] with baseline dementia lying in bed in [facility] DARVIN MARIE CNP [address], [address], [place], [id number], [facility] [employer] [facility] 11/16/2024 11:44:39 01/18/2025 text/html ROS as noted in the HPI Hillary is a 74 yr old LTC resident seen for routine rounding. She has been at her baseline in [facility]. no changes in appetite or elimination, there are no acute nursing concerns. REGI COLÓN [address], [address], [place], [id number], [facility] [employer] [facility] 01/19/2025 18:55:56 OBGyn Episode No OBEpisode recorded.
== END 2025-04-26 11:57 | disposition home or self-care (01) ==
LOC: HO.MMNH3L 11:56
PROVIDERS: Visit Provider Student in an Organized Health Care Education/Training Program
DX: F41.1 Generalized anxiety disorder (principal); F32.1 Major depressive disorder, single episode, moderate; J44.9 Chronic obstructive pulmonary disease, unspecified
CPT/HCPCS: 36415; 85025

== ENCOUNTER 2025-05-03 05:55 | Outpatient (REF) | payer MEDICARE, MEDICAID, SELFPAY ==
[2025-05-03 06:00] LABS: MANUAL DIFF FLAG NO
--- OUTSIDE RECORDS SUMMARY | 2025-05-03 06:01 | XMS_ITS | Data Portability ---
Author Organization [facility] [employer] [facility], Main Office Address [address] [place] [address] Care Team Providers Care Big Data Lead Name Role Phone MARCIO DONG 3RD FLOOR OTHER Assessment Encounter Date Assessment Date Assessment LastModified by Organization Details LastModified Time 10/26/2024 10/26/202410/24 wbc=12.2 hb=13.3 xrc=2920 bun=11 cre=0.69 10/26 wbc 9, hgb 12.1, Plt 1017 Not available 10/26/2024 12:27:13 11/16/2024 11/16/202410/24 wbc=12.2 hb=13.3 zir=7228 bun=11 cre=0.69 10/26 wbc 9, hgb 12.1, [...] Address Organization Details Recorded Time Recurrent falls 142725426 Active 2022 JUAN MANUEL MORALES NP [address], [place], [address], [facility] [employer] 11:13:43 Osteoarthr itis 799553645 Active 2022 JUAN MANUEL MORALES NP [address], [address], [place], [address], [facility] 3 11:13:48 Chronic obstructiv e pulmonary disease 30394466 Active 2022 JUAN MANUEL MORALES NP [address], [address], [place], [address], [facility] 3 11:13:52 Gastroesop hageal reflux disease without esophagiti s 276676879 Active 2022 JUAN MANUEL MORALES NP [address], [address], [place], [address], [facility] 3 11:13:58 Congestive heart failure 72413998 Active 2022 JUAN MANUEL MORALES NP [address], [address], [place], [address], [facility] 3 11:14:03 Atrial fibrillati on 01588375 Active 2022 JUAN MANUEL MORALES NP [address], [address], [place], [address], [facility] 3 11:14:08 Hematoma of right thigh 589115913281 74837 Active 2022 JUAN MANUEL MORALES NP [address], [address], [place], [address], [facility] 3 11:14:21 Essential hypertensi on 07702474 Active 2022 JUAN MANUEL MORALES NP [address], [place], [address], [facility] 3 11:40:46 Hyperlipid emia 33133641 Active 2022 JUAN MANUEL MORALES NP [address], [place], [address], [facility] 3 11:41:07 Mixed anxiety and depressive disorder 793215695 Active 2022 JUAN MANUEL MORALES NP [address], [address], [place], [address], [place] [facility] 3 11:41:48 Impaired cognition 921897434 Active 2022 Sandra Morrison MD [address], [address], [place], [address], [facility] 3 01:04:56 Overactive urinary bladder 328181238 Active 2022 Sandra Morrison MD [address], [place], [address], [facility] 3 01:13:05 Dry eyes 176886135 Active 2022 Sandra Morrison MD [address], [place], [address], [facility] 3 01:14:09 Hematoma 884045682 Active 2022 left buttock JUAN MANUEL MORALES, TONY [address], [address], [place], [address], [facility] 3 13:03:34 Leukocytos is 775223745 Active 2023 JUAN MANUEL MORALES NP [address], [place], [address], [facility] 4 12:21:55 Restless legs syndrome 78418275 Active 2023 Sandra Morrison MD [address], [place], [address], [facility] 4 18:41:39 Mixed urinary incontinen ce 918574296 Active 2023 Sandra Morrison MD [address], [address], [place], [address], [facility] 4 18:42:46 Bacterial conjunctiv itis 649691872 Active 2023 REGI COLÓN [address], [place], [address], [facility] 4 17:01:03 Thrombocyt osis 8770194 Active 2024 Abhi Erickson MD [address], [place], [address], [facility] 13:01:15 Notes:Some problems listed i n Document: #[id number] could not be added to this patient's [...] 167.64 cm 140/80 mm[Hg] Abhi Erickson MD [address] [place] [address], [place], [address], [facility] 10/24/2024 12:57:01 Date Recorded Body height Provider Name an d Address Organization Details Last Updated DateTime 01/18/2025 167.64 cm REGI COLÓN [address] [place] [address], [place], [address], [facility] 01/19/2025 18:53:56 Social History Question Answer Notes LastModified by Organizat ion Details LastModified Time Tobacco Smoking Status Former Smoker JUAN MANUEL MORALES NP [address] [place] [address], [place], [address], [facility] 08/08/2022 11:11:20 Do You Have An Advance Directive? Yes Information not available 08/11/2022 What Is Your Code Status? Full Code Information not available 08/11/2022 Where Do You Live? [facility], Previously Lived Alone, No Stairs Information not available 05/15/2023 Legal Guardian? No Informati on not available 08/12/2022 Do You Have A Medical Power Of Receptionist Scheduler? Yes Information not available 08/12/2022 What Was [...] PF 05/22/2022 completed Maryam hernandez [place] - [facility] 07/30/2023 12:41:28 Past Encounters Encounter ID Performer Location Encounter Start Date Encounter Closed Date Diagnosis/Indication Diagnosis SNOMED-CT Code Diagnosis ICD10 Code Diagnosis IMO Codes Diagnosis Note [id number] TONY ALMARAZ [address] [facility] [place] [address] 08/08/2022 09:43:58 08/12/2022 10:33:59 Recurrent falls 524200016 R29.6 PT OT eval and treatfall precaution sfrequent safety checks Hematoma o f right thigh [id number] 3742131 S70.11XA change dressing per ordersmoni tor for increased swellingav oid further falls Atrial fibrillation 4943 6004 I48.91 amiodarone 200 mg dailyeiliq uis 5 mg bidbisopro lol 2.5 mg daily Chronic ob structive pulmonary disease 91146128 J44.9 albuterol inhaler q4hr prnadvair 100/25 daily Congestive heart failure 20001688 I50.9 lasix 20 mg dailylosar miller 25 mg daily Osteoarthritis 702745319 M19.90 cholecalci ferol 2000 dailyrisen dronate 35 weekly Gastroesop hageal reflux disease without esophagitis 994077819 K21.9 CaCarb 500 bidprotoni x 40 mg daily Essential hypertension 90224398 I10 amlodipine 5 mg dailycloni dine 0.1 mg q12 hr Hyperlipidemia 31712536 E78.5 atorvastat in 40 mg daily Mixed anxi ety and depressive disorder 423417415 F41.8 bupropion er 150 mg dailytrazo done 100 mg hs JUAN MANUEL MORALES NP [facility] [address] [place] [address] 08/11/2022 14:11:22 08/13/2022 13:57:19 Hematoma of right thigh 8985703051 5373609 S70.11XA change dressing per ordersmoni tor for increased swellingav oid further falls Congestive heart failure 44434166 I50.9 lasix 20 mg dailylosar miller 25 mg daily [id number] MD MARCIO Ramirez [address] [place] [address] 08/12/2022 17:25:40 08/18/2022 16:13:47 Hematoma of right thigh 4076184235 6588352 S70.11XD With minimal drainage from drains.Lik bruno will get removed at appt tomorrow.M onitor thigh for healing.Mo nitor CBC. Congestive heart failure 46816050 I50.22 Appears euvolemic. Continue bisoprolol 2.5 mg qd, lasix 20 mg qd and losartan 25 mg qd.Monitor resp. status, fluid status, wts and labs. Recurrent falls 17095422 2 R29.6 Very deconditio demetrius.Needs PT/OT for strengthen ing, balance, gait training, safety and function.C ontinue fall precaution s.Monitor for safety. Atrial fibrillation 4943 6004 I48.0 Rate in good control on meds as above and amiodarone 200 mg qd.Continu e eliquis 5 mg BID for AC.Monitor HR and bleeding risk. Chronic ob structive pulmonary disease 82195126 J43.8 At baseline.C ontinue Advair 100/25 mcg BID and albuterol MDI 2 puffs q 4 hrs prn.Monito r resp. status. Gastroesop hageal reflux disease without esophagitis 756742824 K21.9 No current sxs.Contin ue pantoprazo le 40 mg qd.Monitor sxs. Essential hypertension 31047668 I10 Systolic has been high periodical ly, likely due to pain.No change in meds for now.Contin ue meds as above and amlodipine 5 mg qd and clonidine 0.1 mg BID.Monito r BP and labs. Hyperlipidemia 43308759 E78.49 Continue atorvastat in 40 mg qd.Monitor labs as outpt. Mixed anxi ety and depressive disorder 915240811 F41.8 Mood ok tonight.Co ntinue bupropion ER 150 mg qd and trazodone 100 mg qhsMonitor mood.Psych consult prn. Osteoporosis 61103424 M8 1.0 Continue cholecalci ferol 2000 IU qd, calcium 500 mg BID, and risedronat e 35 mg weeklyMoni tor as outpt. [id number] TONY ALMARAZ [address] [place] [address] 08/14/2022 11:52:29 08/18/2022 16:23:58 Chronic obstructive pulmonary disease 54381592 J44.9 albuterol inhaler q4hr prnadvair 100/25 daily Congestive heart failure 84105514 I50.9 lasix 20 mg dailylosar miller 25 mg daily [id number] JUAN MANUEL MORALES NP [address] [address] 08/20/2022 13:24:34 08/22/2022 13:09:35 Chronic obstructive pulmonary disease 11156717 J43.8 albuterol inhaler q4hr prnadvair 100/25 daily Mixed anxi ety and depressive disorder 735581006 F41.8 bupropion er 150 mg dailytrazo done 100 mg hsmonitor and chart any changes in mood or behaviorsp sych prn [id number] JU[facility]ALES [facility] [address] [place] [address] 08/27/2022 10:50:59 09/02/2022 10:27:22 Hematoma of right thigh 9163301396 7050023 S70.11XD change dressing per ordersmoni tor for increased swellingav oid further fallsWBAT Chronic ob structive pulmonary disease 13360347 J43.8 albuterol inhaler q4hr prnadvair 100/25 daily Recurrent falls 17088156 2 R29.6 PT OT eval and treatfall precaution sfrequent safety checks [id number] JUAN MANUEL TONY MORALES [facility] [address] [place] [address] 09/03/2022 10:52:54 09/05/2022 13:45:58 Chronic obstructive pulmonary disease 16891597 J43.8 albuterol inhaler q4hr prnadvair 100/25 daily Recurrent falls 89889863 2 R29.6 PT OT eval and treatfall precaution sfrequent safety checks [id number] JUAN MANUEL TONY MORALES [address] [address] 09/05/2022 10:51:26 09/09/2022 07:59:39 Recurrent falls 358460003 R29.6 PT OT eval and treatfall precaution sfrequent safety checks Hematoma o f right thigh 7862758265 9600203 S70.11XA [facility] for increased swellingav oid further falls Atrial fibrillation 4943 6004 I48.91 amiodarone 200 mg dailyeiliq uis 5 mg bidbisopro lol 2.5 mg daily Chronic ob structive pulmonary disease 26657375 J44.9 albuterol inhaler q4hr prnadvair 100/25 daily Congestive heart failure 66514797 I50.9 lasix 20 mg dailylosar miller 25 mg daily Osteoarthritis 376407107 M19.90 cholecalci ferol 2000 dailyrisen dronate 35 weekly Gastroesop hageal reflux disease without esophagitis 062450243 K21.9 CaCarb 500 bidprotoni x 40 mg daily Essential hypertension 73557966 I10 amlodipine 5 mg dailycloni dine 0.1 mg q12 hr Hyperlipidemia 01448185 E78.5 atorvastat in 40 mg daily Mixed anxi ety and depressive disorder 128500160 F41.8 bupropion er 150 mg dailytrazo done 100 mg hs [id number] Sandra Morrison MD [facility] [address] [place] [address] 10/07/2022 18:29:02 10/10/2022 15:21:01 Abrasion and/or friction burn of back without infection 62506001 S30.810A With open abrasion.W ill use local care and protection with dressings and monitor sxs. Fall W18.39XA Pt. reminded to call for help when she wants to get up.Continu es to need PT/OT for strengthen ing, balance, gait training, safety and function.C ontinue fall precaution s.Monitor for safety. Essential hypertension 92752829 I10 Systolic was very high this AM, not rechecked since fall. Overall good recently.C ontinue bisoprolol 2.5 mg qd, lasix 20 mg qd, losartan 25 mg qd. amlodipine 5 mg qd and clonidine 0.1 mg BID.Monito r BP and labs. [id number] Sandra Morrison MD [address] [place] [address] 10/09/2022 13:55:48 10/14/2022 11:00:12 Abrasion and/or friction burn of back without infection 89824157 S30.810A Abrasion healing.Co ntinue local care and protection with dressings and monitor sxs. fall W18.39XA Fall 2 days ago.Contin ues to need PT/OT for strengthen ing, balance, gait training, safety and function.C ontinue fall precaution s.Monitor for safety. Essential hypertension 67275586 I10 Continues with intermitte nt elevated SBP, [...] and labs. Hematoma o f right thigh 1791515878 4083710 S70.11XD Healed.CBC stable. Congestive heart failure 74665608 I50.22 Continues to be euvolemic. Continue bisoprolol 2.5 mg qd, lasix 20 mg qd and losartan 25 mg qd.Monitor resp. status, fluid status, wts and labs. Atrial fibrillation 4943 6004 I48.0 Rate remains in good control on meds as above and amiodarone 200 mg qd.Continu e eliquis 5 mg BID for AC.Monitor HR and bleeding risk. Chronic ob structive pulmonary disease 13278735 J43.8 Continues at baseline.C ontinue Advair 100/25 mcg BID and albuterol MDI 2 puffs q 4 hrs prn.Monito r resp. status. Osteoporosis 65505515 M8 1.0 Continue cholecalci ferol 2000 IU qd, calcium 500 mg BID, and risedronat e 35 mg weeklyMoni tor as outpt. Gastroesop hageal reflux disease without esophagitis 528666060 K21.9 No current sxs.Contin ue pantoprazo le 40 mg qd.Monitor sxs. Hyperlipidemia 87296611 E78.49 Continue atorvastat in 40 mg qd.Monitor labs as outpt. Mixed anxi ety and depressive disorder 217376312 F41.8 Mood ok tonight.Co ntinue bupropion ER 150 mg qd, Buspar 5 mg qd, and trazodone 100 mg qhsMonitor mood.Psych consult prn. Impaired cognition 47406 6002 R41.89 Oriented today, but with frequent episodes of confusion. Continue supportive care, expect decline.HC P invokedMon itor mood and behaviors. Psych consult prn. Overactive urinary bladder 506701907 N32.81 Per pt. has been on Gemtesa in the past, would like to restart.Ge mtesa 75 mg qd.Monitor urinary function. Restless l egs syndrome 52185278 G25.81 With increased sxs of RLS.Will start requip 0.25 mg qhs.Monito r sxs. Dry eyes 268237238 H04.1 23 Will start natural tears q 2 hrs prn, may leave at bedside.Mo nitor sxs. [id number] TONY ALMARAZ [address] [place] [address] 10/13/2022 12:47:26 10/15/2022 12:27:09 Hematoma 181597144 M79.81 sent to ED for further eval as it is expanding [id number] TONY ALMARAZ [address] [place] [address] 10/17/2022 10:23:03 10/22/2022 16:06:33 Hematoma 728099258 M79.81 oxycodone 2.5 mg q6hr prn for 5 daysmonito r for healibng Recurrent falls 80235563 2 R29.6 PT OT eval and treatfall precaution sfrequent safety checks Hematoma o f right thigh 1123624491 0780358 S70.11XA resolvedav oid further falls Atrial fibrillation 4943 6004 I48.91 amiodarone 200 mg dailyeiliq uis 5 mg bidbisopro lol 2.5 mg daily Chronic ob structive pulmonary disease 63274348 J44.9 albuterol inhaler q4hr prnadvair 100/25 daily Congestive heart failure 32950682 I50.9 lasix 20 mg dailylosar miller 25 mg daily Osteoarthritis 889445898 M19.90 cholecalci ferol 2000 dailyrisen dronate 35 weekly Gastroesop hageal reflux disease without esophagitis 003923848 K21.9 CaCarb 500 bidprotoni x 40 mg daily Essential hypertension 78353446 I10 amlodipine 5 mg dailycloni dine 0.1 mg q12 hr Hyperlipidemia 52537234 E78.5 atorvastat in 40 mg daily Mixed anxi ety and depressive disorder 252824164 F41.8 bupropion er 150 mg dailybuspa r 5 mg dailytrazo done 100 mg hs Overactive urinary bladder 091496380 N32.81 Gemtesa 75 mg qd.Monitor urinary function. [id number] JUAN MANUEL MORALSE NP [address] [address] 10/20/2022 12:38:53 10/22/2022 16:25:33 Hematoma 302956392 M79.81 oxycodone 2.5 mg q6hr prn for 5 daysmonito r for healing Recurrent falls 85245809 2 R29.6 PT OT eval and treatfall precaution sfrequent safety checks [id number] JUAN MANUEL MORALES NP [address] [address] 10/24/2022 10:45:27 10/28/2022 12:44:55 Hematoma 257520579 M79.81 oxycodone 2.5 mg q6hr prn for 5 daysmonito r for healing Impaired cognition 32568 6002 R41.89 Oriented intermitte ntly, but with frequent episodes of confusion. Continue supportive care, expect decline.HC P invokedMon itor mood and behaviors. Psych consult prn. [id number] JUAN MANUEL MORALES NP MARCIO DONG [address] [place] [address] [place] [address] 10/29/2022 13:57:22 10/31/2022 15:54:37 Hematoma 266673267 M79.81 monitor for healing Recurrent falls 31389482 2 R29.6 PT OT eval and treatfall precaution sfrequent safety checks Hematoma o f right thigh 6398695686 4887852 S70.11XA resolvedav oid further falls Atrial fibrillation 4943 6004 I48.91 amiodarone 200 mg dailyeiliq uis 5 mg bidbisopro lol 2.5 mg daily Chronic ob structive pulmonary disease 20125203 J44.9 albuterol inhaler q4hr prnadvair 100/25 daily Congestive heart failure 49367260 I50.9 lasix 20 mg dailylosar miller 25 mg daily Osteoarthritis 201635137 M19.90 cholecalci ferol 2000 dailyrisen dronate 35 weekly Gastroesop hageal reflux disease without esophagitis 318094630 K21.9 CaCarb 500 bidprotoni x 40 mg daily Essential hypertension 32420325 I10 amlodipine 5 mg dailycloni dine 0.1 mg q12 hr Hyperlipidemia 95876320 E78.5 atorvastat in 40 mg daily Mixed anxi ety and depressive disorder 954342575 F41.8 bupropion er 150 mg dailybuspa r 5 mg dailytrazo done 100 mg hs Overactive urinary bladder 634116510 N32.81 Gemtesa 75 mg qd.Monitor urinary function. [id number] MD MARCIO Cline I[facility] [address] [place] [address] [place] [address] 01/28/2023 07:59:08 01/30/2023 15:30:48 Impaired cognition 393827853 R41.89 will monitor and support as neededI did not feel that I could invoke patient's HCP proxy today as she was quite appropriat e in her answers to my questions with even some insight. Chronic ob structive pulmonary disease 75569654 J41.0 Advair 250-50: one puff g61cjlorcg rol HFA: 2 puffs q4h prnwill monitor Atrial fibrillation 4943 6004 I48.0 apixaban 5 mg bidbisopro lol 2.5 mg dailyamiod arone 200 mg dailywill monitor Essential hypertension 51828017 I10 bisoprolol 2.5 mg dailyamlod ipine 5 mg dailyfuros emide 20 mg dailylosar miller 25 mg dailycloni dine 0.1 mg q76dqhxm monitor Mixed anxi ety and depressive disorder 258243206 F41.8 buspirone 5 mg tidtrazodo ne 100 mg at hsbupropri on 100 mg dailyescit alopram 10 mg dailyhydro xyzine 10 mg q8h prn anxietywil l monitor Overactive urinary bladder 470838752 N32.81 vibegron 75 mg dailywill monitor Restless l egs syndrome 48950789 G25.81 ropinirole 0.25 mg dailywill monitor Gastroesop hageal reflux disease without esophagitis 119856756 K21.9 pantoprazo le 40 mg dailywill monitor Primary osteoporosis 276 124139 M81.0 risendrona te 25 mg weeklywill monitor Chronic sy stolic heart failure 990865165 I50.22 losartan 25 mg dailyfuros emide 20 mg dailybisop rolol 2.5 mg dailywill monitor [id number] TONY ALMARAZ [address] [address] 03/20/2023 16:32:09 03/27/2023 09:38:51 Overactive urinary bladder 374058251 N32.81 urology consult prnMonitor urinary function. Impaired cognition 65444 6002 R41.89 will monitor and support as needed Chronic ob structive pulmonary disease 35726132 J41.0 Advair 250-50: one puff g89hpkkire rol HFA: 2 puffs q4h prnwill monitor Atrial fibrillation 4943 6004 I48.0 apixaban 5 mg bidbisopro lol 2.5 mg dailyamiod arone 200 mg dailywill monitor Essential hypertension 05974267 I10 bisoprolol 2.5 mg dailyamlod ipine 5 mg dailyfuros emide 20 mg dailylosar miller 25 mg dailycloni dine 0.1 mg e80jaodc monitor Mixed anxi ety and depressive disorder 793031917 F41.8 buspirone 5 mg tidtrazodo ne 100 mg at hsbupropri on 100 mg dailyescit alopram 10 mg dailyhydro xyzine 10 mg q8h prn anxietywil l monitor Restless l egs syndrome 94922574 G25.81 ropinirole 0.25 mg dailywill monitor Gastroesop hageal reflux disease without esophagitis 357039930 K21.9 pantoprazo le 40 mg dailywill monitor Primary osteoporosis 276 859833 M81.0 risendrona te 25 mg weeklywill monitor Chronic sy stolic heart failure 409885899 I50.22 losartan 25 mg dailyfuros emide 20 mg dailybisop rolol 2.5 mg dailywill monitor Recurrent falls 40604570 2 R29.6 PT OT eval and treatfall precaution sfrequent safety checks [id number] Sandra Morrison MD [address] [place] [address] 05/15/2023 17:56:32 05/19/2023 11:07:46 Fall 5171419 R29.6 Hx of fallsConti nue fall precaution s.Monitor for safety. Essential hypertension 11528364 I10 Good control.Co ntinue bisoprolol 2.5 mg qd, lasix 20 mg qd, losartan 25 mg qd. amlodipine 5 mg qd and clonidine 0.1 mg BID.Monito r BP and labs. Hematoma o f right thigh 2339729220 8102686 S70.11XD Healed.CBC stable. Impaired cognition 24971 6002 R41.89 Mild confusion today, but fairly oriented.C ontinue supportive care, expect decline.HC P invokedMon itor mood and behaviors. Psych consult prn. Congestive heart failure 45140342 I50.22 Continues to be euvolemic. Continue bisoprolol 2.5 mg qd, lasix 20 mg qd and losartan 25 mg qd.Monitor resp. status, fluid status, wts and labs. Atrial fibrillation 4943 6004 I48.0 Rate remains in good control on meds as above and amiodarone 200 mg qd.Continu e eliquis 5 mg BID for AC.Monitor HR and bleeding risk. Chronic ob structive pulmonary disease 21845044 J43.8 Continues at baseline.C ontinue Advair 100/25 mcg BID and albuterol MDI 2 puffs q 4 hrs prn.Monito r resp. status. Osteoporosis 44053303 M8 1.0 Continue cholecalci ferol 2000 IU qd, calcium 500 mg BID, and risedronat e 35 mg weeklyMoni tor as outpt. Gastroesop hageal reflux disease without esophagitis 081453656 K21.9 No current sxs.Contin ue pantoprazo le 40 mg qd.Monitor sxs. Hyperlipidemia 29389607 E78.49 Continue atorvastat in 40 mg qd.Monitor labs as outpt. Mixed anxi ety and depressive disorder 720617409 F41.8 Mood ok tonight.Co ntinue bupropion ER 100 mg qd, Buspar 5 mg TID, clonidine 0.1 m BID, and trazodone 100 mg qhsMonitor mood.Psych consult prn. Restless l egs syndrome 95466459 G25.81 Continue requip 0.25 mg qhs.Monito r sxs. Mixed urin laura incontinence 186699136 N39.46 Continue estring 2 mg q 3 months and estrace cream 2 gms 3x/wkMonit or urinary function.F /U with uro prn. Visual hallucinations 64 185624 R44.1 Psych consult for visual and auditory hallucinat ions.[place] pt. [id number] TONY ALMARAZ [address] [place] [address] [place] [address] 07/10/2023 12:52:00 07/21/2023 11:22:40 Overactive urinary bladder 252108072 N32.81 urology consult prnMonitor urinary function.d -mannose 500 mg daily uti preventati ve Impaired cognition 49348 6002 R41.89 will monitor and support as needed Chronic ob structive pulmonary disease 02688077 J41.0 Advair 250-50: one puff w33qfoqury rol HFA: 2 puffs q4h prnwill monitor Atrial fibrillation 4943 6004 I48.0 apixaban 5 mg bidbisopro lol 2.5 mg dailyamiod arone 200 mg dailywill monitor Essential hypertension 91364862 I10 bisoprolol 2.5 mg dailyamlod ipine 5 mg dailyfuros emide 20 mg dailylosar miller 25 mg dailycloni dine 0.1 mg n77xcfwm monitor Mixed anxi ety and depressive disorder 902898612 F41.8 buspirone 5 mg tidtrazodo ne 100 mg at hsbupropri on 100 mg dailyescit alopram 10 mg dailyhydro xyzine 10 mg q8h prn anxietywil l monitor Restless l egs syndrome 84240057 G25.81 ropinirole 0.25 mg dailywill monitor Gastroesop hageal reflux disease without esophagitis 433901459 K21.9 pantoprazo le 40 mg dailywill monitor Primary osteoporosis 276 331211 M81.0 risendrona te 25 mg weeklywill monitor Chronic sy stolic heart failure 392907126 I50.22 losartan 25 mg dailyfuros emide 20 mg dailybisop rolol 2.5 mg dailywill monitor Recurrent falls 34341067 2 R29.6 PT OT eval and treatfall precaution sfrequent safety checks [id number] JUAN MANUEL MORALES NP [address] [address] 07/15/2023 12:09:17 07/21/2023 14:31:17 Leukocytosis 105345284 D72.829 UA C/Scxr [id number] Martina Vidalburn Hazel [address] [address] 08/28/2023 10:48:09 10/26/2023 15:56:34 Atrial fibrillation 80839500 I48.0 chronic, stable. RCcontinue eliquiscon tinue norvasccon tinue amiodarone monitor HR Chronic ob structive pulmonary disease 06093741 J41.0 chronic stablecont inue inhalersmo nitor for changes in respirator y status Congestive heart failure 02915212 I50.22 chronic, stablecont inue lasix 20mg dailymonit or BMP Essential hypertension 32188599 I10 chronic stablecont inue norvasc and losartanal so on lasix Hyperlipidemia 72554787 E78.49 continue atorvastat inmonitor lipids annually [id number] Jenni Kwong MD [address] [place] [address] 09/09/2023 08:10:55 09/15/2023 10:16:26 Impaired cognition 644278458 R41.89 will monitor and support as needed Mixed anxi ety and depressive disorder 372903925 F41.8 buspirone 5 mg tidtrazodo ne 100 mg at hsbupropri on 100 mg dailyescit alopram 10 mg dailyhydro xyzine 10 mg q8h prn anxietywil l monitor Atrial fibrillation 4943 6004 I48.0 apixaban 5 mg bidbisopro lol 2.5 mg dailyamiod arone 200 mg dailywill monitor Essential hypertension 65037392 I10 bisoprolol 2.5 mg dailyamlod ipine 5 mg dailyfuros emide 20 mg dailylosar miller 25 mg dailycloni dine 0.1 mg [id number] monitor Hyperlipidemia 79119064 E78.49 atorvastat in 40 mg dailywill monitor Chronic ob structive pulmonary disease 21688364 J41.0 Advair 250-50: one puff [id number] rol HFA: 2 puffs q4h prnwill monitor Gastroesop hageal reflux disease without esophagitis 452750752 K21.9 pantoprazo le 40 mg dailywill monitor Restless l egs syndrome 85247550 G25.81 ropinirole 0.25 mg dailywill monitor Cobalamin deficiency 190 217429 E53.8 B12 500 mcg dailywill monitor [id number] [facility] [address] [place] [id number] 09/21/2023 11:12:35 09/23/2023 09:57:55 Acute dermatitis 83003014 L30.9 left upper facial near left eye [...] provide new make up brushes Impaired cognition 42137 6002 R41.89 will monitor and support as needed [id number] [facility] MARCIO DONG [address] [place] [address] [place] [id number] 09/22/2023 15:18:31 09/24/2023 12:07:21 Impaired cognition 880654859 R41.89 will monitor and support as needed Pain of le ft knee region 1738744237 91703 M25.562 see hpiwill scheduled 975 mg tylenol TIDxray left knee 2 viewsconsi christiano PT/OT eval if imaging is negative for fx. [id number] [facility] IKER [address] [place] [address] [place] [id number] 10/13/2023 18:47:09 10/15/2023 17:16:34 Cough 01866863 R05.9 10/11: started mucinex 600 mg q [...] dayincreas e oral hydrationm onitor resp status [id number] [facility] IKER [address] [place] [address] [place] [id number] 10/29/2023 11:14:47 11/03/2023 12:16:03 Impaired cognition 661368963 R41.89 Continue supportive care, expect decline.HC P invokedMon itor mood and behaviors. Psych consult prn. Essential hypertension 97064898 I10 BP has been controlled with current medicatios .Continue bisoprolol 2.5 mg qd, lasix 20 mg qd, losartan 25 mg qd. amlodipine 5 mg qd and clonidine 0.1 mg BID.Monito r BP and labs. Congestive heart failure 80699576 I50.22 euvolemic. Continue bisoprolol 2.5 mg qd, lasix 20 mg qd and losartan 25 mg qd.Monitor resp. status, fluid status, wts and labs. Atrial fibrillation 4943 6004 I48.0 HR controlled continue amiodarone 200 mg qd.Continu e eliquis 5 mg BID for AC.Monitor HR and bleeding risk. Chronic ob structive pulmonary disease 05897922 J43.8 Continues at baseline.C ontinue Advair 100/25 mcg BID and albuterol MDI 2 puffs q 4 hrs prn.Monito r resp. status. Osteoporosis 48520932 M8 1.0 Continue cholecalci ferol 2000 IU qd, calcium 500 mg BID, and risedronat e 35 mg weeklyMoni tor as outpt. Gastroesop hageal reflux disease without esophagitis 200642042 K21.9 No current sxs.Contin ue pantoprazo le 40 mg qd.Monitor sxs. Hyperlipidemia 19148288 E78.49 Continue atorvastat in 40 mg qd.Monitor labs as outpt. Mixed anxi ety and depressive disorder 497793066 F41.8 Continue bupropion ER 100 mg qd, Buspar 5 mg TID, clonidine 0.1 m BID, and trazodone 100 mg qhs,lexapr o 10 mg daily and hydroxyzin e 10 mg qdMonitor mood.Psych consult prn. Restless l egs syndrome 00614157 G25.81 Continue requip 0.25 mg qhs.Monito r sxs. Mixed urin laura incontinence 372856225 N39.46 Continue estring 2 mg q 3 monthsMoni tor urinary function.F /U with uro prn. Tear of skin 013325920 T 14.8XXA LLE flap tear, approximat edcontinue to monitor healing. [id number] [facility] [address] [place] [id number] 11/10/2023 12:24:35 11/23/2023 12:50:14 Pain of shoulder region 31811319 M25.519 right shoulder pain+ discomfort with abduction, suspect OAnursing to give now dose tylenol and continue prnPT/OT eval and treatwill monitor. [id number] [facility] [address] [place] [id number] 5 11/25/2023 11:56:55 11/27/2023 12:02:47 Candidiasis of vagina 21060258 B37.31 vaginal redness appears yeastPatie nt has no discomfort start diflucan 150 mg Q72 for 3 dosesPt is incontinen t, nursing encourage to check for incontinen t episode and change Q2.keep skin clean and drymonitor for resolution [id number] MD MARCIO Ramirez IKER [address] [place] [address] rd [place] [id number] 01/15/2024 21:46:22 02/02/2024 07:55:44 Impaired cognition 419715241 R41.89 Continues at baseline.C ontinue escitalopr am 10 mg qd, bupropion ER 100 mg qd, Buspar 5 mg TID, clonidine 0.1 m BID, trazodone 100 mg qhs, and hydroxyzin e 10 mg qd.Continu e supportive care, expect decline.HC P invokedMon itor mood and behaviors. Psych follows. Visual hallucinations 64 989781 R44.1 Psych follows, no mention of this in recent notes.Aida tor Essential hypertension 33615727 I10 Continues in good control.Co ntinue bisoprolol 2.5 mg qd, lasix 20 mg qd, losartan 25 mg qd. amlodipine 5 mg qd and clonidine 0.1 mg BID.Monito r BP and labs. Congestive heart failure 83617312 I50.22 Continues to be euvolemic. Continue bisoprolol 2.5 mg qd, lasix 20 mg qd and losartan 25 mg qd.Monitor resp. status, fluid status, wts and labs. Atrial fibrillation 4943 6004 I48.0 Rate in good control on meds as above and amiodarone 200 mg qd.Continu e eliquis 5 mg BID for AC.Monitor HR and bleeding risk. Chronic ob structive pulmonary disease 22436574 J43.8 Continues at baseline.C ontinue Advair 100/25 mcg BID and albuterol MDI 2 puffs q 4 hrs prn.Mucine x 600 mg BID added for cough in 10/2023.Mon itor resp. status. Osteoporosis 69769931 M8 1.0 Continue cholecalci ferol 2000 IU qd, calcium 500 mg BID, and risedronat e 35 mg weeklyMoni tor as outpt. Gastroesop hageal reflux disease without esophagitis 070186294 K21.9 No current sxs.Contin ue pantoprazo le 40 mg qd.Monitor sxs. Hyperlipidemia 30133458 E78.49 Continue atorvastat in 40 mg qd.Monitor labs as outpt. Mixed anxi ety and depressive disorder 012137530 F41.8 As above. Restless l egs syndrome 49419337 G25.81 She mentions this tonight.Co ntinue requip 0.25 mg qhs.Consid er increase to 0.5 mg qhs.Monito r sxs. Mixed urin laura incontinence 389358712 N39.46 Continue estring 2 mg q 3 months.Mon itor urinary function.F /U with uro prn. Cough 76999674 R05.9 Back to baseline.M onitor [id number] [facility] [address] [phone] 02/24/2024 09:53:07 02/25/2024 10:07:37 Bacterial conjunctivitis 958935451 H10.9 see hpibilater al erythema, dry yellowish discharge noted on lashes and corners or eyesstart ofloxacin 0.3 % 2 gtts QID for 5 daysmonito r for resolution patient encouraged to avoid rubbing eyes, apply cool compress for comfort. [id number] [facility] [address] [address] 03/02/2024 10:16:42 03/04/2024 10:24:18 Bacterial conjunctivitis 718960547 H10.9 ofloxacin eye gtts completeds clera white, no drainage or discharge, denies didcomfort .bilateral erythema, dry yellowish discharge noted on lashes and corners or eyespatien t encouraged to avoid rubbing eyes, apply cool compress for comfort. Mixed anxi ety and depressive disorder 148706454 F41.8 followed by [facility] seen on 02/28 with recommenda tion for GDR she is currently on 4 psychotrop ic medication 03/02: decrease bupropion ER 100 mg qd to 75 mgcheck EKG for QTcContinu e , Buspar 5 mg TID, clonidine 0.1 m BID, and trazodone 100 mg qhs,lexapr o 10 mg daily and hydroxyzin e 10 mg qdMonitor mood.Psych prn [id number] [facility] [address] [id number] 03/07/2024 15:12:42 03/09/2024 09:31:11 Recurrent falls 237715004 R29.6 see hpino acute injuries or reports of discomfort .nursing to continue post fall protocol. [id number] [facility] [address] [facility] [place] [address] 03/09/2024 10:14:06 03/15/2024 13:07:32 Impaired cognition 942446532 R41.89 Continue supportive care, expect decline.HC P invokedMon itor mood and behaviors. Psych consult prn. Essential hypertension 26358089 I10 Continue bisoprolol 2.5 mg qd, lasix 20 mg qd, losartan 25 mg qd. amlodipine 5 mg qd and clonidine 0.1 mg BID.Monito r BP and labs. Congestive heart failure 44044150 I50.22 euvolemic. she has been stableCont inue bisoprolol 2.5 mg qd, lasix 20 mg qd and losartan 25 mg qd.Monitor resp. status, fluid status, wts and labs. Atrial fibrillation 4943 6004 I48.0 denies any chest pain or other associated sx,continu e amiodarone 200 mg qd.Continu e eliquis 5 mg BID for AC.Monitor HR and bleeding risk. Chronic ob structive pulmonary disease 90110116 J43.8 Continues at baseline.C ontinue Advair 100/25 mcg BID and albuterol MDI 2 puffs q 4 hrs prn.Monito r resp. status. Osteoporosis 63850500 M8 1.0 Continue cholecalci ferol 2000 IU qd, calcium 500 mg BID, and risedronat e 35 mg weeklyMoni tor as outpt. Gastroesop hageal reflux disease without esophagitis 462700470 K21.9 tolerating a regular diet, no reported GI upsetConti nue pantoprazo le 40 mg qd.Monitor sxs. Hyperlipidemia 86325382 E78.49 Continue atorvastat in 40 mg qd.Monitor labs as outpt. Mixed anxi ety and depressive disorder 813644879 F41.8 Continue bupropion ER 100 mg qd, Buspar 5 mg TID, clonidine 0.1 m BID, and trazodone 100 mg qhs,lexapr o 10 mg daily and hydroxyzin e 10 mg qdMonitor mood.Psych consult prn. Restless l egs syndrome 93758898 G25.81 Continue requip 0.25 mg qhs.Monito r sxs. Mixed urin laura incontinence 241017972 N39.46 Continue estring 2 mg q 3 monthsMoni tor urinary function.F /U with uro prn. Bacterial conjunctivitis 798684851 H10.9 resolvedof loxacin eye gtts completeds stacy villalobos, no drainage or discharge, denies discomfort . Recurrent falls 28784290 2 R29.6 s/p fall 03/05no acute injuries or reports of discomfort .nursing to continue post fall protocol. [id number] [facility] [address] [id number] 04/04/2024 13:13:21 04/05/2024 13:32:19 Viral conjunctivitis 25562388 B30.9 left eyeleft sclera erythema, lower lid swelling( aggravated by rubbing) with clear drainage.n o itchiness or discomfort start azelastine gtt BID for 14 day.monito r for resolution patient encouraged to avoid rubbing eyes, apply cool compress for comfort. [id number] [facility] [address] [place] [id number] 04/07/2024 11:04:20 04/08/2024 12:46:40 Viral conjunctivitis 70933472 B30.9 left eye /stablelef t sclera erythema, lower lid swelling( aggravated by rubbing) with clear drainage.n o itchiness or discomfort start azelastine gtt BID for 14 day.- have not received med from pharmacy-m onitor for resolution patient encouraged to avoid rubbing eyes, apply cool compress for comfort. Acute urin laura tract infection 016193921 N39.0 see hpiwill start bactrim 400mg Q12 for 7 dayadd probiotic BIDencoura ged to have increased water consumptio n to flush out toxins Hypokalemia 35939399 E87 .6 subtle at 3.1will replete with kcl 20 meq times 2 daysmonito r for associated sx (weakness, cramping, twitching) patient to notify nursing staff with sx [id number] [facility] e [address] [facility] [place] [address] 04/28/2024 11:26:55 04/29/2024 11:42:54 Impaired cognition 128906358 R41.89 stableCont inue supportive care, expect decline.HC P invokedMon itor mood and behaviors. Psych consult prn. Essential hypertension 13957684 I10 Continue bisoprolol 2.5 mg qd, lasix 20 mg qd, losartan 25 mg qd. amlodipine 5 mg qd and clonidine 0.1 mg BID.Monito r BP and labs. Congestive heart failure 69458770 I50.22 euvolemic. she has been stableCont inue bisoprolol 2.5 mg qd, lasix 20 mg qd and losartan 25 mg qd.Monitor resp. status, fluid status, wts and labs. Atrial fibrillation 4943 6004 I48.0 denies any chest pain or other associated sx,continu e amiodarone 200 mg qd.Continu e eliquis 5 mg BID for AC.Monitor HR and bleeding risk. Chronic ob structive pulmonary disease 67064134 J43.8 Continues at baseline.C ontinue Advair 100/25 mcg BID and albuterol MDI 2 puffs q 4 hrs prn.Monito r resp. status. Osteoporosis 12996906 M8 1.0 Continue cholecalci ferol 2000 IU qd, calcium 500 mg BID, and risedronat e 35 mg weeklyMoni tor as outpt. Gastroesop hageal reflux disease without esophagitis 885612149 K21.9 tolerating a regular diet, no reported GI upsetConti nue pantoprazo le 40 mg qd.Monitor sxs. Hyperlipidemia 72485476 E78.49 Continue atorvastat in 40 mg qd.Monitor labs as outpt. Mixed anxi ety and depressive disorder 053059012 F41.8 Continue bupropion ER 100 mg qd, Buspar 5 mg TID, clonidine 0.1 m BID, and trazodone 100 mg qhs,lexapr o 10 mg daily and hydroxyzin e 10 mg qdMonitor mood.Psych consult prn. Restless l egs syndrome 29495050 G25.81 Continue requip 0.25 mg qhs.Monito r sxs. Mixed urin laura incontinence 902678695 N39.46 Continue estring 2 mg q 3 monthsMoni tor urinary function.F /U with uro prn. Acute urin laura tract infection 327518668 N39.0 completed abxencoura ged to have increased water consumptio n to flush out toxins Hypokalemia 65423246 E87 .6 subtle at 3.1will replete with kcl 20 meq times 2 daysmonito r for associated sx (weakness, cramping, twitching) patient to notify nursing staff with sx [id number] [facility] [address] [address] 05/09/2024 11:39:53 05/10/2024 13:50:01 Pain of shoulder region 80957814 M25.519 see HPInon traumatic right shoulder painGive now dose for tramadol 50 mg then tramadol 50 mg Q6 prnschedul e tylenol 1 g TIDxray 3 viewscan apply ice for pain or heat for comfort [id number] [facility] [address] [address] 05/19/2024 09:40:12 05/23/2024 12:46:45 Pain of shoulder region 62686400 M25.519 non traumatic right shoulder pain-xray negative for any acute findings.c ontinue tramadol 50 mg Q6 prnschedul e tylenol 1 g TID [id number] [facility] [address] [address] 06/16/2024 08:41:53 06/22/2024 12:46:48 Diplopia 21077708 H53.2 intermitte nt12/4 opthamolog y exam showed esophoria at distance , divergence insufficie ncy can be neurologic al neurology consult recommende d, otherwise follow up in 1 year. Impaired cognition 64131 6002 R41.89 Continue supportive care, expect decline.HC P invokedcon tinue to monitor mood and behaviors with recent med changes Essential hypertension 43049003 I10 Continue bisoprolol 2.5 mg qd, lasix 20 mg qd, losartan 25 mg qd. amlodipine 5 mg qd and clonidine 0.1 mg BID.Monito r BP and labs. Congestive heart failure 44336442 I50.22 euvolemic. she has been stableCont inue [...] bleeding risk. Chronic ob structive pulmonary disease 92954390 J43.8 Continue Advair 100/25 mcg BID and albuterol MDI 2 puffs q 4 hrs prn.Monito r resp. status. Osteoporosis 77773112 M8 1.0 Continue cholecalci ferol 2000 IU qd, calcium 500 mg BID, and risedronat e 35 mg weeklyMoni tor as outpt. Gastroesop hageal reflux disease without esophagitis 934320881 K21.9 tolerating a regular diet, no reported GI upsetpanto prazole discontinu ed due to QTc Hyperlipidemia 63530016 E78.49 Continue atorvastat in 40 mg qd.Monitor labs as outpt. Mixed anxi ety and depressive disorder 864873413 F41.8 nursing reports daily anxiety, currently on [...] of hydroxyzin e Restless l egs syndrome 54845031 G25.81 Continue requip 0.25 mg qhs.Monito r sxs. Mixed urin laura incontinence 989202963 N39.46 Continue estring 2 mg q 3 monthsMoni tor urinary function.F /U with uro prn. [id number] [facility] [address] [place] [id number] 06/20/2024 10:53:20 06/21/2024 14:19:17 Diplopia 16314130 H53.2 intermitte nt12/4 opthamolog y exam showed esophoria at distance , divergence insufficie ncy can be neurologic al neurology consult recommende d, otherwise follow up in 1 year.she will discuss with family Mixed anxi ety and depressive disorder 307449578 F41.8 nursing reports daily anxiety, currently on [...] and bleeding risk. Prolonged QT interval 11 9610963 I45.81 HX afib.QTc 467GDR - amiodarone and protonix decreased, hydroxyzin e stoppedden ies any associated sx/ no dizziness, palpitatio n etc.repeat ekg in 1 week [id number] [facility] [address] [place] [address] [place] [id number] 07/01/2024 08:22:16 07/04/2024 15:48:50 Respiratory tract congestion and cough 220019758 R05.9 non productive chest xray complete:T he lung johansen are clear without mass, infiltrate , congestion , or effusion. SARS-CoV-2 239783756 U07 .1 07/01 positive teststart Molnupirav ir 800 mg BID for 5 dayscontin ue supportive therapy with oxygen prnisolati on precaution [id number] [facility] [address] [place] [address] [place] [address] 07/04/2024 09:57:50 07/05/2024 09:55:44 Respiratory tract congestion and cough 817433355 R05.9 no cough appreciate d on exam SARS-CoV-2 320973688 U07 .1 07/01 positive testcopnti gregoria Dela Cruzupirav ir 800 mg BID for 5 dayscontin ue supportive therapy with oxygen prnisolati on precaution [id number] [facility] [address] [facility] [address] 10/09/2024 10:55:30 10/13/2024 16:07:53 Mixed anxiety and depressive disorder 465268943 F41.8 stablecont inue escitalopr am, BusPIRone and trazodone Impaired cognition 82375 6002 R41.89 Continue supportive care, expect decline.HC P invokedcon tinue to monitor mood and behaviors with recent med changes Essential hypertension 42062762 I10 stableCont inue bisoprolol 2.5 mg qd, lasix 20 mg qd, losartan 25 mg qd. amlodipine 5 mg qd and clonidine 0.1 mg BID.Monito r BP and labs. Congestive heart failure 00645631 I50.22 euvolemic. stableCont inue bisoprolol 2.5 mg qd, lasix 20 mg qd and losartan 25 mg qd.Monitor resp. status, fluid status, wts and labs. Atrial fibrillation 4943 6004 I48.0 stablerate controlled cont amiodarone to 100 mg qdContinue eliquis 5 mg BID for AC.Monitor HR and bleeding risk. Chronic ob structive pulmonary disease 83365153 J43.8 stableCont inue Advair 100/25 mcg BID and albuterol MDI 2 puffs q 4 hrs prn.Monito r resp. status. Gastroesop hageal reflux disease without esophagitis 763205683 K21.9 stabletole rating a regular diet, no reported GI upsetpanto prazole discontinu ed due to QTc Hyperlipidemia 08138651 E78.49 Continue atorvastat in 40 mg qd.Monitor labs as outpt. [id number] Abhi Erickson MD [facility] [address] [place] [address] [place] [id number] 10/12/2024 11:19:17 10/14/2024 08:28:33 Impaired cognition 836370517 R41.89 baseline impaired cognitionH CP invokedmon itor for behaviorsp sych eval prn Pruritic rash 08484227 L 28.2 eschar x 2 present left wristdoes not appear infectedsu rrounding pruritisat arax 25 mg q 8 prnmonitor for effect [id number] MD MARCIO Ayers [address] [place] [address] [place] [id number] 10/24/2024 12:55:25 10/26/2024 11:39:25 Thrombocytosis 5535116 D75.839 D75.838 45401 acute thrombocyt osisrepeat stat cbc to recheck plt levelif remains elevated will starthydre a 1000 mg qd and request heme consult Leukocytosis 830399143 D 72.829 see above Impaired cognition 50719 6002 R41.89 baseline impaired cognitionH CP invokedcoo rdinate with HCP as needed for further workup [id number] DARVIN MARIE CNP [address] [place] [id number] 10/26/2024 12:10:11 11/01/2024 08:15:11 Thrombocytosis 6910287 D75.839 D75.838 73429 acute thrombocyt osisimprov ing with hydrea 1000 mg daily.repe at stat cbc to recheck plt level next week.if remains elevated will startconti nue hydrea 1000 mg dialy and will request heme consult Leukocytosis 529404275 D 72.829 improving. see above Impaired cognition 39214 6002 R41.89 baseline impaired cognitionH CP invokedcoo rdinate with HCP as needed for further workup [id number] DARVIN MARIE CNP [address] [place] [id number] 11/16/2024 10:25:17 11/18/2024 12:49:51 Thrombocytosis 8901976 D75.839 D75.838 97898 acute thrombocyt osisimprov ing with hydrea 1000 mg daily.Plt 300 on 11/14/24.elida l d/c hydrean 1000 mg and monitor CBC on Thursday, .R equest heme consult Leukocytosis 717473653 D 72.829 improving. see above Impaired cognition 76479 6002 R41.89 baseline impaired cognitionH CP invokedcoo rdinate with HCP as needed for further workup Mixed anxi ety and depressive disorder 467338339 F41.8 stablecont inue current psychotrop ic medication Essential hypertension 11136166 I10 stableCont inue bisoprolol 2.5 mg qd, lasix 20 mg qd, losartan 25 mg qd. amlodipine 5 mg qd and clonidine 0.1 mg BID.Monito r BP and labs. Congestive heart failure 99659961 I50.22 euvolemic. stableCont inue bisoprolol 2.5 mg qd, lasix 20 mg qd and losartan 25 mg qd.Monitor resp. status, fluid status, wts and labs. Atrial fibrillation 4943 6004 I48.0 stablerate controlled cont amiodarone to 100 mg qdContinue eliquis 5 mg BID for AC.Monitor HR and bleeding risk. Chronic ob structive pulmonary disease 23629494 J43.8 stableCont inue Advair 100/25 mcg BID and albuterol MDI 2 puffs q 4 hrs prn.Monito r resp. status. Gastroesop hageal reflux disease without esophagitis 577626366 K21.9 stabletole rating a regular diet, no reported GI upsetpanto prazole discontinu ed due to QTc Hyperlipidemia 73150232 E78.49 Continue atorvastat in 40 mg qd.Monitor labs as outpt. [id number] [facility] [address] [place] [address] 01/18/2025 05:50:29 01/20/2025 13:05:29 Mixed anxiety and depressive disorder 106080461 F41.8 stablecont inue escitalopr am, BusPIRone and trazodone Impaired cognition 98510 6002 R41.89 Continue supportive care, expect decline.HC P invokedcon tinue to monitor mood and behaviors with recent med changes Essential hypertension 22616170 I10 stableCont inue bisoprolol 2.5 mg qd, lasix 20 mg qd, losartan 25 mg qd. amlodipine 5 mg qd and clonidine 0.1 mg BID.Monito r BP and labs. Congestive heart failure 95588464 I50.22 euvolemic. stableCont inue bisoprolol 2.5 mg qd, lasix 20 mg qd and losartan 25 mg qd.Monitor resp. status, fluid status, wts and labs. Atrial fibrillation 4943 6004 I48.0 stablerate controlled cont amiodarone to 100 mg qdContinue eliquis 5 mg BID for AC.Monitor HR and bleeding risk. Chronic ob structive pulmonary disease 35073785 J43.8 stableCont inue Advair 100/25 mcg BID and albuterol MDI 2 puffs q 4 hrs prn.Monito r resp. status. Gastroesop hageal reflux disease without esophagitis 452901410 K21.9 stabletole rating a regular diet, no reported GI upsetpanto prazole discontinu ed due to QTc Hyperlipidemia 71248791 E78.49 Continue atorvastat in 40 mg qd.Monitor labs as outpt. Health Concerns Section Related Observation LastModified by Organization Detai ls LastModified Time None Recorded Concern Status LastModified by Organization Details LastModified Time None Recorded Advance Directives Directive Y: Payers Insurance Date Sequence Insurance Name Policy Number Policy Burdick Covered Member ID Burdick Member ID Guarantor Name 01/18/2025 2 () Hillary Cotton [id number] Hillary Naila 01/18/2025 1 MEDICARE B-PR: [employer] Hillary Pena Cotton [id number] Hillary Naila 10/17/2023 2 UNSPECIFIED REMIT PAYOR Hillary Yoo Notes Date Note Type Note Provider Name and Address Organization Details Recorded Time 10/12/2024 text/html Patient is a 74 yo female resident asked to al for MD visit with pruritis left hand. Patient with dementia at baseline, brother in room helps with hx. Patient sitting in wheelchair in NAD. Abhi Erickson MD [address] [place] [address], [address], [place], [address], [facility] 10/12/2024 11:58:18 10/24/2024 text/html Patient is a 74 yo female resident seen for acute rounding. CBC was ordered showing significant elevated of sgt=6285 and mild elevation of WBC. Patient with baseline dementia lying in bed in NAD Abhi Erickson MD [address] [facility], [address], [place], [address], [facility] 10/24/2024 13:06:12 10/26/2024 text/html Patient is a 74 yo female resident seen for acute rounding. CBC was ordered showing significant elevated of rrc=6047 and mild elevation of WBC on 10/24. Pt started hydrea 1000 mg daily. Repeat lab result reviewed today. Patient with baseline dementia lying in bed in NAD DARVIN MARIE CNP [address] [facility], [address], [place], [address], [facility] 10/26/2024 12:27:33 11/16/2024 text/html Patient is a 74 yo female L[facility] resident seen for annual exam.She has been here after multiple falls and a resulting large right thigh hematoma, needing I&D and drains. Also was COVID+ and had a sub-acute left femur fx. She completed rehab and remained too weak to be able to return to [facility] and so is now LTC. Pt had labs, [id number] and mild elevation of WBC on 10/24. [...] with baseline dementia lying in bed in [facility] DARVIN MARIE CNP [address], [address], [place], [address], [facility] 11/16/2024 11:44:39 01/18/2025 text/html ROS as noted in the HPI Hillary is a 74 yr old LTC resident seen for routine rounding. She has been at her baseline in [facility]. no changes in appetite or elimination, there are no acute nursing concerns. REGI COLÓN [address], [address], [place], [address], [facility] 01/19/2025 18:55:56 OBGyn Episode No OBEpisode recorded.
--- OUTSIDE RECORDS SUMMARY | 2025-05-03 06:01 | XMS_ITS | Data Portability ---
Author Organization [place] [facility] Address [address] [place] [id number] Care Team Providers Care Forest Fire Lookout Name Role Phone ALONSO ANDINO Primary Care [...] note she recently moved up here from [place] to move into an [facility]. She is not a great historian. She gives me a med list with only a few medicines however she has pill packs from [place] that are totally different medicines that her [...] agree and recc emeregent eval at [facility] PE - no s/s DVT< no [...] Was able to discuss w/ PCP from [place] Dr Andino office who was only able to give me limited information and confirm she has seen cardiology in the past. Dr Mcarthur in [place] is customer response representative, I did have their number but I [...] called and pt was handed [facility] to [facility]. Expect called to [facility] ED w/ very thorough reasons for escalation [...] diogr am No observ ation record ed. [email or web address] Not Available 10:31:15 Result Notes None recorded. Procedures Surgical History Date Name Laterality Status Provider Name and Address Organization Details Recorded Time Medication Review completed SAMSON Hadley [address], [place], [address], [place] [facility] 05/27/2022 10:20:35 ECG Interpretation - completed SAMSON Hadley [address], [place], [address], [place] [facility] 05/27/2022 10:23:27 Cataract Surgery completed SAMSON Avila [address], [place], [address], [place] [facility] 05/27/2022 09:22:29 bypass of stomach completed SAMSON Landers [address], [place], [address], [place] [facility] 05/27/2022 09:22:41 Imaging [...] Former Smoker SAMSON Hadley [address], [place], [address], [place] [facility] 05/27/2022 09:22:59 When Did [...] History Condition Response Coronary Artery Disease N Parkinson's Disease N COPD N Depression N Hypothyroidism N A-fib N Diabetes N CHF N Cancer N Dementia N Stroke N Asthma N High Cholesterol N Rheumatoid Arthritis N Pulmonary Embolism N Hypertension Y Osteoporosis N Kidney Disease N Gynecological HistoryNo gynecological history recorded. Obstetrics History GPAL:G 0 P 0 0 0 0 Past Encounters Encounter ID Performer Location Encounter Start Date Encounter Closed Date Diagnosis/Indication Diagnosis SNOMED-CT Code Diagnosis ICD10 Code Diagnosis IMO Codes Diagnosis Note [id number] SAMSON Eli [facility] [address] [place] [address] 05/27/2022 08:28:33 05/28/2022 15:07:31 Tachycardia 4729651 R00.0 Community acquired pneumonia 189663263 J18.9 Irregular heart beat 361 420636 R00.8 Health Concerns Section Related Observation LastModified by Organization Detai ls LastModified Time None Recorded Concern Status LastModified by Organization Details LastModified Time None Recorded Advance Directives Directive None Recorded Payers Insurance Date Sequence Insurance Name Policy Number Policy Burdick Covered Member ID Burdick Member ID Guarantor Name 05/27/2022 1 *SELF PAY* Hillary Iliamna [id number] Hillary Iliamna 06/02/2022 1 MEDICARE B-[place]: [employer] Hillary Pena Iliamna [id number] Hillary Iliamna 06/02/2022 2 CHRISTOPHER (CHRISTOPHER) Hillary Iliamna [id number] Hillary Iliamna Notes Date Note Type Note Provider Name [...] note she recently moved up here from [place] to move into an [facility]. She is not a great historian. She gives me a med list with only a few medicines however she has pill packs from [place] that are totally different medicines that her [...] sxs today. SAMSON Hadley [address], [place], [address], [place] [facility] 05/27/2022 10:31:24 OBGyn Episode No OBEpisode recorded.
[2025-05-03 06:27] LABS: Hematocrit 39.1 % (37.0-47.0); Hemoglobin 12.0 g/dl (12.0-16.0); Imm Gran Abs Auto 0.04 X10*3/uL (0.00-0.03); Imm Gran Pct Auto 0.8 % (0.0-0.4); Lymphocytes Absolute Auto 1.5 X10*3/uL (1.2-4.9); Mean Corpuscular HGB Conc 30.7 g/dl (31.0-35.0); Mean Corpuscular Hemoglobin 23.7 pg (27.0-33.0); Mean Corpuscular Volume 77.1 fL (80.0-98.0); NRBC Abs Auto 0.000 X10*3/uL (0.0-0.012); NRBC Pct Auto 0.0 /100WBC (0.0-0.2); Platelet Count 787 X10*3/uL (160-400); Red Blood Count 5.07 X10*6/uL (4.20-5.50); White Blood Count 5.0 X10*3/uL (4.8-10.8)
== END 2025-05-03 05:56 | disposition home or self-care (01) ==
LOC: HO.MMNH3L 05:55
PROVIDERS: Visit Provider Student in an Organized Health Care Education/Training Program
DX: J44.9 Chronic obstructive pulmonary disease, unspecified (principal); I50.20 Unspecified systolic (congestive) heart failure
CPT/HCPCS: 36415; 85025

== ENCOUNTER 2025-06-14 06:05 | Outpatient (REF) | payer MEDICARE, MEDICAID, SELFPAY ==
[2025-06-14 06:07] LABS: MANUAL DIFF FLAG NO
--- OUTSIDE RECORDS SUMMARY | 2025-06-14 06:07 | XMS_ITS | Data Portability ---
Author Organization [facility] Address [address] [place] [phone] Care Team Providers Care Technical Cable Jointer Name Role Phone ALONSO ANDINO Primary Care [...] note she recently moved up here from [place] to move into an [facility]. She is not a great historian. She gives me a med list with only a few medicines however she has pill packs from [place] that are totally different medicines that her [...] James agree and recc emeregent eval at [facility] PE - no s/s DVT< no [...] Was able to discuss w/ PCP from [place] Dr Andino office who was only able to give me limited information and confirm she has seen cardiology in the past. Dr Mcarthur in [place] is social media coordinator, I did have their number but I [...] called and pt was [facility]. Expect called to [facility] ED w/ very thorough reasons for escalation adn I was thanked for this level of detail. I did pass along pt PCP names and specialist names I had from [place]. Pt is on agreement and verbalizes understanding [...] diogr am No observ ation record ed. [email or web address] Not Available 10:31:15 Result Notes None recorded. Procedures Surgical History Date Name Laterality Status Provider Name and Address Organization Details Recorded Time Medication Review completed SAMSON Hadley [address], [place], [address], [place] [facility] 05/27/2022 10:20:35 ECG Interpretation - completed SAMSON Hadley [address], [place], [address], [place] [facility] 05/27/2022 10:23:27 Cataract Surgery completed SAMSON Avila [address], [place], [address], [place] [facility] 05/27/2022 09:22:29 bypass of stomach completed SAMSON Landers [address], [place], [address], [place] [facility] 05/27/2022 09:22:41 Imaging [...] Vitals Date Recorded Heart rate Oxygen saturation Body temperature Respiratory rate Systolic And Diastolic Provider Name and Address Organization Details Last Updated DateTime 2 120 /min 98 % 98.2 [degF] 18 /min 142/80 mm[Hg] Not Available [facility] 2 09:22:36 Social History Question Answer Notes LastModified by Organizat ion Details LastModified Time Tobacco Smoking Status Former Smoker SAMSON Hadley [address], [place], [address], [place] [facility] 05/27/2022 09:22:59 When Did [...] Artery Disease N COPD N Depression N A-fib N Cancer N Stroke N Rheumatoid Arthritis N Kidney Disease N CHF N Asthma N Pulmonary Embolism N Hypothyroidism N High Cholesterol N Parkinson's Disease N Diabetes N Dementia N Hypertension Y Osteoporosis N Gynecological HistoryNo gynecological history recorded. Obstetrics History GPAL:G 0 P 0 0 0 0 Past Encounters Encounter ID Performer Location Encounter Start Date Encounter Closed Date Diagnosis/Indication Diagnosis SNOMED-CT Code Diagnosis ICD10 Code Diagnosis IMO Codes Diagnosis Note [id number] SAMSON Eli [facility] [address] [place] [address] 05/27/2022 08:28:33 05/28/2022 15:07:31 Tachycardia 0634312 R00.0 Community acquired pneumonia 510910434 J18.9 Irregular heart beat 361 506948 R00.8 Health Concerns Section Related Observation LastModified by Organization Detai ls LastModified Time None Recorded Concern Status LastModified by Organization Details LastModified Time None Recorded Advance Directives Directive None Recorded Payers Insurance Date Sequence Insurance Name Policy Number Policy Burdick Covered Member ID Burdick Member ID Guarantor Name 05/27/2022 1 *SELF PAY* Hillary Treutlen [id number] Hillary Naila 06/02/2022 1 MEDICARE [place]: [employer] Hillary Pena Treutlen [id number] Hillary Treutlen 06/02/2022 2 () Hillary Treutlen [id number] Hillary Naila Notes Date Note Type Note Provider Name and Address Organization Details Recorded Time 05/27/2022 text/html 72 YO F new to and new to providerShe is being seen [...] note she recently moved up here from [place] to move into an [facility]. She is not a great historian. She gives me a med list with only a few medicines however she has pill packs from [place] that are totally different medicines that her [...] sxs today. SAMSON Hadley [address], [place], [address], [place] [facility] 05/27/2022 10:31:24 OBGyn Episode No OBEpisode recorded.
--- OUTSIDE RECORDS SUMMARY | 2025-06-14 06:07 | XMS_ITS | Clinical Summary ---
Author Organization [facility] Address [address] [place] [address] Phone Care Team Providers Care Nurse'S Companion Name Role Phone Unavailable Primary Care Provider [...] complete this topic Insurance Medicare Spina Bifida ([id number]) Medicare Spina Bifida ([id number])
--- OUTSIDE RECORDS SUMMARY | 2025-06-14 06:07 | XMS_ITS | Data Portability ---
Author Organization [facility] [employer] [facility], Main Office Address [address] [place] [address] Care Team Providers Care Sandwich Maker Name Role Phone MARCIO DONG 3RD FLOOR OTHER Assessment Encounter Date Assessment Date Assessment LastModified by Organization Details LastModified Time 10/26/2024 10/26/202410/24 wbc=12.2 hb=13.3 dvj=[id number] bun=11 cre=0.69 10/26 wbc 9, hgb 12.1, Plt 1017 Not available 10/26/2024 12:27:13 11/16/2024 11/16/202410/24 wbc=12.2 hb=13.3 jsi=3607 bun=11 cre=0.69 10/26 wbc 9, hgb 12.1, [...] Address Organization Details Recorded Time Recurrent falls 226458782 Active 2022 JUAN MANUEL MORALES NP [address], [place], [address], [facility] [employer] 11:13:43 Osteoarthr itis 260316011 Active 2022 JUAN MANUEL MORALES NP [address], [address], [place], [address], [facility] 11:13:48 Chronic obstructiv e pulmonary disease 43198860 Active 2022 JUAN MANUEL MORALES NP [address], [place], [address], [facility] 3 11:13:52 Gastroesop hageal reflux disease without esophagiti s 392685174 Active 2022 JUAN MANUEL MORALES NP [address], [place], [address], [facility] 3 11:13:58 Congestive heart failure 43846516 Active 2022 JUAN MANUEL MORALES NP [address], [place], [address], [facility] 3 11:14:03 Atrial fibrillati on 19557634 Active 2022 JUAN MANUEL MORALES NP [address], [place], [address], [facility] 3 11:14:08 Hematoma of right thigh 614766418390 76526 Active 2022 JUAN MANUEL MORALES NP [address], [place], [address], [facility] 3 11:14:21 Essential hypertensi on 44554661 Active 2022 JUAN MANUEL MORALES NP [address], [place], [address], [facility] 3 11:40:46 Hyperlipid emia 26083575 Active 2022 JUAN MANUEL MORALES NP [address], [address], [place], [address], [facility] 3 11:41:07 Mixed anxiety and depressive disorder 785637135 Active 2022 JUAN MANUEL MORALES NP [address], [place], [address], [place] [facility] 3 11:41:48 Impaired cognition 643013249 Active 2022 Sandra Morrison MD [address], [address], [place], [address], [facility] 3 01:04:56 Overactive urinary bladder 654803343 Active 2022 Sandra Morrison MD [address], [place], [address], [facility] 01:13:05 Dry eyes 745123027 Active 2022 Sandra Morrison MD [address], [place], [address], [facility] 01:14:09 Hematoma 955169109 Active 2022 left buttock JUAN MANUEL MORALES, TONY [address], [place], [address], [facility] 3 13:03:34 Leukocytos is 929916542 Active 2023 JUAN MANUEL MORALES NP [address], [place], [address], [facility] 4 12:21:55 Restless legs syndrome 92428616 Active 2023 Sandra Morrison MD [address], [place], [address], [facility] 4 18:41:39 Mixed urinary incontinen ce 292863005 Active 2023 Sandra Morrison MD [address], [place], [address], [facility] 4 18:42:46 Bacterial conjunctiv itis 653528144 Active 2023 REGI COLÓN [address], [place], [address], [facility] 4 17:01:03 Thrombocyt osis 7769863 Active 2024 Abhi Erickson MD [address], [place], [address], [facility] 13:01:15 Notes:Some problems listed i n Document: #[id number] could not be added to this patient's [...] cm 140/80 mm[Hg] Abhi Erickson MD [address] [place] [address], [place], [address], [facility] 10/24/2024 12:57:01 Date Recorded Body height Provider Name an d Address Organization Details Last Updated DateTime 01/18/2025 167.64 cm REGI COLÓN [address] [place] [address] [address], [place], [address], [facility] 01/19/2025 18:53:56 Social History Question Answer Notes LastModified by Organizat ion Details LastModified Time Tobacco Smoking Status Former Smoker JUAN MANUEL MORALES NP [address] [place] [address], [place], [address], [facility] 08/08/2022 11:11:20 Do You Have An Advance Directive? Yes Information not available 08/11/2022 What Is Your Code Status? Full Code Information not available 08/11/2022 Where Do You Live? [facility], Previously Lived Alone, No Stairs Information not available 05/15/2023 Legal Guardian? No Informati on not available 08/12/2022 Do You Have A Medical Power Of Head Athletic Trainer? Yes Information not available 08/12/2022 What Was [...] PF 05/22/2022 completed Maryam hernandez [place] - [facility] 07/30/2023 12:41:28 Past Encounters Encounter ID Performer Location Encounter Start Date Encounter Closed Date Diagnosis/Indication Diagnosis SNOMED-CT Code Diagnosis ICD10 Code Diagnosis IMO Codes Diagnosis Note [id number] TONY ALMARAZ [address] [facility] [place] [address] 08/08/2022 09:43:58 08/12/2022 10:33:59 Recurrent falls 899878655 R29.6 PT OT eval and treatfall precaution sfrequent safety checks Hematoma o f right thigh 8023926942 2464573 S70.11XA change dressing per ordersmoni tor for increased swellingav oid further falls Atrial fibrillation 4943 6004 I48.91 amiodarone 200 mg dailyeiliq uis 5 mg bidbisopro lol 2.5 mg daily Chronic ob structive pulmonary disease 16434908 J44.9 albuterol inhaler q4hr prnadvair 100/25 daily Congestive heart failure 91769894 I50.9 lasix 20 mg dailylosar miller 25 mg daily Osteoarthritis 749855587 M19.90 cholecalci ferol 2000 dailyrisen dronate 35 weekly Gastroesop hageal reflux disease without esophagitis 257780214 K21.9 CaCarb 500 bidprotoni x 40 mg daily Essential hypertension 62731976 I10 amlodipine 5 mg dailycloni dine 0.1 mg q12 hr Hyperlipidemia 38219958 E78.5 atorvastat in 40 mg daily Mixed anxi ety and depressive disorder 710823662 F41.8 bupropion er 150 mg dailytrazo done 100 mg hs JUAN MANUEL MORALES NP [facility] [address] [place] [address] 08/11/2022 14:11:22 08/13/2022 13:57:19 Hematoma of right thigh 4705118577 8382109 S70.11XA change dressing per ordersmoni tor for increased swellingav oid further falls Congestive heart failure 36819887 I50.9 lasix 20 mg dailylosar miller 25 mg daily [id number] MD MARCIO Ramirez [address] [place] [address] 08/12/2022 17:25:40 08/18/2022 16:13:47 Hematoma of right thigh 3525247228 2903852 S70.11XD With minimal drainage from drains.Lik bruno will get removed at appt tomorrow.M onitor thigh for healing.Mo nitor CBC. Congestive heart failure 72445301 I50.22 Appears euvolemic. Continue bisoprolol 2.5 mg qd, lasix 20 mg qd and losartan 25 mg qd.Monitor resp. status, fluid status, wts and labs. Recurrent falls 04334888 2 R29.6 Very deconditio demetrius.Needs PT/OT for strengthen ing, balance, gait training, safety and function.C ontinue fall precaution s.Monitor for safety. Atrial fibrillation 4943 6004 I48.0 Rate in good control on meds as above and amiodarone 200 mg qd.Continu e eliquis 5 mg BID for AC.Monitor HR and bleeding risk. Chronic ob structive pulmonary disease 22886983 J43.8 At baseline.C ontinue Advair 100/25 mcg BID and albuterol MDI 2 puffs q 4 hrs prn.Monito r resp. status. Gastroesop hageal reflux disease without esophagitis 114345874 K21.9 No current sxs.Contin ue pantoprazo le 40 mg qd.Monitor sxs. Essential hypertension 61791863 I10 Systolic has been high periodical ly, likely due to pain.No change in meds for now.Contin ue meds as above and amlodipine 5 mg qd and clonidine 0.1 mg BID.Monito r BP and labs. Hyperlipidemia 60132538 E78.49 Continue atorvastat in 40 mg qd.Monitor labs as outpt. Mixed anxi ety and depressive disorder 234169432 F41.8 Mood ok tonight.Co ntinue bupropion ER 150 mg qd and trazodone 100 mg qhsMonitor mood.Psych consult prn. Osteoporosis 54624304 M8 1.0 Continue cholecalci ferol 2000 IU qd, calcium 500 mg BID, and risedronat e 35 mg weeklyMoni tor as outpt. [id number] TONY ALMARAZ [address] [place] [address] 08/14/2022 11:52:29 08/18/2022 16:23:58 Chronic obstructive pulmonary disease 02003651 J44.9 albuterol inhaler q4hr prnadvair 100/25 daily Congestive heart failure 57848853 I50.9 lasix 20 mg dailylosar miller 25 mg daily [id number] JUAN MANUEL MORALES NP [address] [address] 08/20/2022 13:24:34 08/22/2022 13:09:35 Chronic obstructive pulmonary disease 56490610 J43.8 albuterol inhaler q4hr prnadvair 100/25 daily Mixed anxi ety and depressive disorder 379267604 F41.8 bupropion er 150 mg dailytrazo done 100 mg hsmonitor and chart any changes in mood or behaviorsp sych prn [id number] JUAN MANUEL MORALES NP [facility] [address] [place] [address] 08/27/2022 10:50:59 09/02/2022 10:27:22 Hematoma of right thigh 5266657520 7969892 S70.11XD change dressing per ordersmoni tor for increased swellingav oid further fallsWBAT Chronic ob structive pulmonary disease 91223153 J43.8 albuterol inhaler q4hr prnadvair 100/25 daily Recurrent falls 83863171 2 R29.6 PT OT eval and treatfall precaution sfrequent safety checks [id number] JUAN MANUEL TONY MORALES [facility] [address] [place] [address] 09/03/2022 10:52:54 09/05/2022 13:45:58 Chronic obstructive pulmonary disease 24123754 J43.8 albuterol inhaler q4hr prnadvair 100/25 daily Recurrent falls 92785171 2 R29.6 PT OT eval and treatfall precaution sfrequent safety checks [id number] JUAN MANUEL TONY MORALES [address] [address] 09/05/2022 10:51:26 09/09/2022 07:59:39 Recurrent falls 408332386 R29.6 PT OT eval and treatfall precaution sfrequent safety checks Hematoma o f right thigh 0009361892 9359108 S70.11XA [facility] for increased swellingav oid further falls Atrial fibrillation 4943 6004 I48.91 amiodarone 200 mg dailyeiliq uis 5 mg bidbisopro lol 2.5 mg daily Chronic ob structive pulmonary disease 30961432 J44.9 albuterol inhaler q4hr prnadvair 100/25 daily Congestive heart failure 77557778 I50.9 lasix 20 mg dailylosar miller 25 mg daily Osteoarthritis 846808678 M19.90 cholecalci ferol 2000 dailyrisen dronate 35 weekly Gastroesop hageal reflux disease without esophagitis 284532589 K21.9 CaCarb 500 bidprotoni x 40 mg daily Essential hypertension 81617161 I10 amlodipine 5 mg dailycloni dine 0.1 mg q12 hr Hyperlipidemia 69383434 E78.5 atorvastat in 40 mg daily Mixed anxi ety and depressive disorder 232413306 F41.8 bupropion er 150 mg dailytrazo done 100 mg hs [id number] Sandra Morrison MD [facility] [address] [place] [address] 10/07/2022 18:29:02 10/10/2022 15:21:01 Abrasion and/or friction burn of back without infection 34376735 S30.810A With open abrasion.W ill use local care and protection with dressings and monitor sxs. Fall W18.39XA Pt. reminded to call for help when she wants to get up.Continu es to need PT/OT for strengthen ing, balance, gait training, safety and function.C ontinue fall precaution s.Monitor for safety. Essential hypertension 97948824 I10 Systolic was very high this AM, not rechecked since fall. Overall good recently.C ontinue bisoprolol 2.5 mg qd, lasix 20 mg qd, losartan 25 mg qd. amlodipine 5 mg qd and clonidine 0.1 mg BID.Monito r BP and labs. [id number] Sandra Morrison MD [address] [place] [address] 10/09/2022 13:55:48 10/14/2022 11:00:12 Abrasion and/or friction burn of back without infection 97543865 S30.810A Abrasion healing.Co ntinue local care and protection with dressings and monitor sxs. fall W18.39XA Fall 2 days ago.Contin ues to need PT/OT for strengthen ing, balance, gait training, safety and function.C ontinue fall precaution s.Monitor for safety. Essential hypertension 39008474 I10 Continues with intermitte nt elevated SBP, [...] and labs. Hematoma o f right thigh 2045451531 1401146 S70.11XD Healed.CBC stable. Congestive heart failure 56640175 I50.22 Continues to be euvolemic. Continue bisoprolol 2.5 mg qd, lasix 20 mg qd and losartan 25 mg qd.Monitor resp. status, fluid status, wts and labs. Atrial fibrillation 4943 6004 I48.0 Rate remains in good control on meds as above and amiodarone 200 mg qd.Continu e eliquis 5 mg BID for AC.Monitor HR and bleeding risk. Chronic ob structive pulmonary disease 76085079 J43.8 Continues at baseline.C ontinue Advair 100/25 mcg BID and albuterol MDI 2 puffs q 4 hrs prn.Monito r resp. status. Osteoporosis 01973669 M8 1.0 Continue cholecalci ferol 2000 IU qd, calcium 500 mg BID, and risedronat e 35 mg weeklyMoni tor as outpt. Gastroesop hageal reflux disease without esophagitis 412569026 K21.9 No current sxs.Contin ue pantoprazo le 40 mg qd.Monitor sxs. Hyperlipidemia 72491539 E78.49 Continue atorvastat in 40 mg qd.Monitor labs as outpt. Mixed anxi ety and depressive disorder 588112723 F41.8 Mood ok tonight.Co ntinue bupropion ER 150 mg qd, Buspar 5 mg qd, and trazodone 100 mg qhsMonitor mood.Psych consult prn. Impaired cognition 80811 6002 R41.89 Oriented today, but with frequent episodes of confusion. Continue supportive care, expect decline.HC P invokedMon itor mood and behaviors. Psych consult prn. Overactive urinary bladder 239122526 N32.81 Per pt. has been on Gemtesa in the past, would like to restart.Ge mtesa 75 mg qd.Monitor urinary function. Restless l egs syndrome 09402921 G25.81 With increased sxs of RLS.Will start requip 0.25 mg qhs.Monito r sxs. Dry eyes 980838716 H04.1 23 Will start natural tears q 2 hrs prn, may leave at bedside.Mo nitor sxs. [id number] TONY ALMARAZ [address] [place] [address] 10/13/2022 12:47:26 10/15/2022 12:27:09 Hematoma 990600239 M79.81 sent to ED for further eval as it is expanding [id number] TONY ALMARAZ [address] [place] [address] 10/17/2022 10:23:03 10/22/2022 16:06:33 Hematoma 367004193 M79.81 oxycodone 2.5 mg q6hr prn for 5 daysmonito r for healibng Recurrent falls 75035435 2 R29.6 PT OT eval and treatfall precaution sfrequent safety checks Hematoma o f right thigh 1164097620 9990803 S70.11XA resolvedav oid further falls Atrial fibrillation 4943 6004 I48.91 amiodarone 200 mg dailyeiliq uis 5 mg bidbisopro lol 2.5 mg daily Chronic ob structive pulmonary disease 34783865 J44.9 albuterol inhaler q4hr prnadvair 100/25 daily Congestive heart failure 16205961 I50.9 lasix 20 mg dailylosar miller 25 mg daily Osteoarthritis 893001748 M19.90 cholecalci ferol 2000 dailyrisen dronate 35 weekly Gastroesop hageal reflux disease without esophagitis 906926999 K21.9 CaCarb 500 bidprotoni x 40 mg daily Essential hypertension 95431488 I10 amlodipine 5 mg dailycloni dine 0.1 mg q12 hr Hyperlipidemia 68060385 E78.5 atorvastat in 40 mg daily Mixed anxi ety and depressive disorder 902406068 F41.8 bupropion er 150 mg dailybuspa r 5 mg dailytrazo done 100 mg hs Overactive urinary bladder 003924905 N32.81 Gemtesa 75 mg qd.Monitor urinary function. [id number] JUAN MANUEL MORALES NP [address] [address] 10/20/2022 12:38:53 10/22/2022 16:25:33 Hematoma 632386708 M79.81 oxycodone 2.5 mg q6hr prn for 5 daysmonito r for healing Recurrent falls 00477668 2 R29.6 PT OT eval and treatfall precaution sfrequent safety checks [id number] JUAN MANUEL MORALES NP [address] [address] 10/24/2022 10:45:27 10/28/2022 12:44:55 Hematoma 589400939 M79.81 oxycodone 2.5 mg q6hr prn for 5 daysmonito r for healing Impaired cognition 95461 6002 R41.89 Oriented intermitte ntly, but with frequent episodes of confusion. Continue supportive care, expect decline.HC P invokedMon itor mood and behaviors. Psych consult prn. [id number] JUAN MANUEL MORALES NP MARCIO DONG [address] [place] [address] [place] [address] 10/29/2022 13:57:22 10/31/2022 15:54:37 Hematoma 982527875 M79.81 monitor for healing Recurrent falls 14805473 2 R29.6 PT OT eval and treatfall precaution sfrequent safety checks Hematoma o f right thigh 9806549510 1346294 S70.11XA resolvedav oid further falls Atrial fibrillation 4943 6004 I48.91 amiodarone 200 mg dailyeiliq uis 5 mg bidbisopro lol 2.5 mg daily Chronic ob structive pulmonary disease 08016515 J44.9 albuterol inhaler q4hr prnadvair 100/25 daily Congestive heart failure 13608961 I50.9 lasix 20 mg dailylosar miller 25 mg daily Osteoarthritis 628128467 M19.90 cholecalci ferol 2000 dailyrisen dronate 35 weekly Gastroesop hageal reflux disease without esophagitis 563273824 K21.9 CaCarb 500 bidprotoni x 40 mg daily Essential hypertension 80733752 I10 amlodipine 5 mg dailycloni dine 0.1 mg q12 hr Hyperlipidemia 63795973 E78.5 atorvastat in 40 mg daily Mixed anxi ety and depressive disorder 452522324 F41.8 bupropion er 150 mg dailybuspa r 5 mg dailytrazo done 100 mg hs Overactive urinary bladder 715111257 N32.81 Gemtesa 75 mg qd.Monitor urinary function. [id number] MD MARCIO Cline [facility] [address] [place] [address] [place] [address] 01/28/2023 07:59:08 01/30/2023 15:30:48 Impaired cognition 310855947 R41.89 will monitor and support as neededI did not feel that I could invoke patient's HCP proxy today as she was quite appropriat e in her answers to my questions with even some insight. Chronic ob structive pulmonary disease 85853175 J41.0 Advair 250-50: one puff [id number] rol HFA: 2 puffs q4h prnwill monitor Atrial fibrillation 4943 6004 I48.0 apixaban 5 mg bidbisopro lol 2.5 mg dailyamiod arone 200 mg dailywill monitor Essential hypertension 02946624 I10 bisoprolol 2.5 mg dailyamlod ipine 5 mg dailyfuros emide 20 mg dailylosar miller 25 mg dailycloni dine 0.1 mg [id number] monitor Mixed anxi ety and depressive disorder 644217056 F41.8 buspirone 5 mg tidtrazodo ne 100 mg at hsbupropri on 100 mg dailyescit alopram 10 mg dailyhydro xyzine 10 mg q8h prn anxietywil l monitor Overactive urinary bladder 566522548 N32.81 vibegron 75 mg dailywill monitor Restless l egs syndrome 68224310 G25.81 ropinirole 0.25 mg dailywill monitor Gastroesop hageal reflux disease without esophagitis 666582394 K21.9 pantoprazo le 40 mg dailywill monitor Primary osteoporosis 276 643376 M81.0 risendrona te 25 mg weeklywill monitor Chronic sy stolic heart failure 812893280 I50.22 losartan 25 mg dailyfuros emide 20 mg dailybisop rolol 2.5 mg dailywill monitor [id number] TONY ALMARAZ [address] [address] 03/20/2023 16:32:09 03/27/2023 09:38:51 Overactive urinary bladder 184848572 N32.81 urology consult prnMonitor urinary function. Impaired cognition 71781 6002 R41.89 will monitor and support as needed Chronic ob structive pulmonary disease 35537001 J41.0 Advair 250-50: one puff [id number] rol HFA: 2 puffs q4h prnwill monitor Atrial fibrillation 4943 6004 I48.0 apixaban 5 mg bidbisopro lol 2.5 mg dailyamiod arone 200 mg dailywill monitor Essential hypertension 09235994 I10 bisoprolol 2.5 mg dailyamlod ipine 5 mg dailyfuros emide 20 mg dailylosar miller 25 mg dailycloni dine 0.1 mg [id number] monitor Mixed anxi ety and depressive disorder 960663517 F41.8 buspirone 5 mg tidtrazodo ne 100 mg at hsbupropri on 100 mg dailyescit alopram 10 mg dailyhydro xyzine 10 mg q8h prn anxietywil l monitor Restless l egs syndrome 46855683 G25.81 ropinirole 0.25 mg dailywill monitor Gastroesop hageal reflux disease without esophagitis 243540795 K21.9 pantoprazo le 40 mg dailywill monitor Primary osteoporosis 276 757118 M81.0 risendrona te 25 mg weeklywill monitor Chronic sy stolic heart failure 699868087 I50.22 losartan 25 mg dailyfuros emide 20 mg dailybisop rolol 2.5 mg dailywill monitor Recurrent falls 15985161 2 R29.6 PT OT eval and treatfall precaution sfrequent safety checks [id number] Sandra Morrison MD [address] [place] [address] 05/15/2023 17:56:32 05/19/2023 11:07:46 Fall 7681507 R29.6 Hx of fallsConti nue fall precaution s.Monitor for safety. Essential hypertension 02195125 I10 Good control.Co ntinue bisoprolol 2.5 mg qd, lasix 20 mg qd, losartan 25 mg qd. amlodipine 5 mg qd and clonidine 0.1 mg BID.Monito r BP and labs. Hematoma o f right thigh 5598523352 7441195 S70.11XD Healed.CBC stable. Impaired cognition 32865 6002 R41.89 Mild confusion today, but fairly oriented.C ontinue supportive care, expect decline.HC P invokedMon itor mood and behaviors. Psych consult prn. Congestive heart failure 99576247 I50.22 Continues to be euvolemic. Continue bisoprolol 2.5 mg qd, lasix 20 mg qd and losartan 25 mg qd.Monitor resp. status, fluid status, wts and labs. Atrial fibrillation 4943 6004 I48.0 Rate remains in good control on meds as above and amiodarone 200 mg qd.Continu e eliquis 5 mg BID for AC.Monitor HR and bleeding risk. Chronic ob structive pulmonary disease 95737019 J43.8 Continues at baseline.C ontinue Advair 100/25 mcg BID and albuterol MDI 2 puffs q 4 hrs prn.Monito r resp. status. Osteoporosis 16032863 M8 1.0 Continue cholecalci ferol 2000 IU qd, calcium 500 mg BID, and risedronat e 35 mg weeklyMoni tor as outpt. Gastroesop hageal reflux disease without esophagitis 439962806 K21.9 No current sxs.Contin ue pantoprazo le 40 mg qd.Monitor sxs. Hyperlipidemia 58389423 E78.49 Continue atorvastat in 40 mg qd.Monitor labs as outpt. Mixed anxi ety and depressive disorder 927865127 F41.8 Mood ok tonight.Co ntinue bupropion ER 100 mg qd, Buspar 5 mg TID, clonidine 0.1 m BID, and trazodone 100 mg qhsMonitor mood.Psych consult prn. Restless l egs syndrome 84569586 G25.81 Continue requip 0.25 mg qhs.Monito r sxs. Mixed urin laura incontinence 204543277 N39.46 Continue estring 2 mg q 3 months and estrace cream 2 gms 3x/wkMonit or urinary function.F /U with uro prn. Visual hallucinations 64 666324 R44.1 Psych consult for visual and auditory hallucinat ions.[place] ring to pt. [id number] TONY ALMARAZ [address] [place] [address] [place] [address] 07/10/2023 12:52:00 07/21/2023 11:22:40 Overactive urinary bladder 919420827 N32.81 urology consult prnMonitor urinary function.d -mannose 500 mg daily uti preventati ve Impaired cognition 10352 6002 R41.89 will monitor and support as needed Chronic ob structive pulmonary disease 43117421 J41.0 Advair 250-50: one puff [id number] rol HFA: 2 puffs q4h prnwill monitor Atrial fibrillation 4943 6004 I48.0 apixaban 5 mg bidbisopro lol 2.5 mg dailyamiod arone 200 mg dailywill monitor Essential hypertension 76075682 I10 bisoprolol 2.5 mg dailyamlod ipine 5 mg dailyfuros emide 20 mg dailylosar miller 25 mg dailycloni dine 0.1 mg [id number] monitor Mixed anxi ety and depressive disorder 879651235 F41.8 buspirone 5 mg tidtrazodo ne 100 mg at hsbupropri on 100 mg dailyescit alopram 10 mg dailyhydro xyzine 10 mg q8h prn anxietywil l monitor Restless l egs syndrome 92460668 G25.81 ropinirole 0.25 mg dailywill monitor Gastroesop hageal reflux disease without esophagitis 485492864 K21.9 pantoprazo le 40 mg dailywill monitor Primary osteoporosis 276 072990 M81.0 risendrona te 25 mg weeklywill monitor Chronic sy stolic heart failure 903563180 I50.22 losartan 25 mg dailyfuros emide 20 mg dailybisop rolol 2.5 mg dailywill monitor Recurrent falls 53533680 2 R29.6 PT OT eval and treatfall precaution sfrequent safety checks [id number] JUAN MANUEL MORALES NP [address] [address] 07/15/2023 12:09:17 07/21/2023 14:31:17 Leukocytosis 882737538 D72.829 UA C/Scxr [id number] Martina Vidalburn Hazel [address] [address] 08/28/2023 10:48:09 10/26/2023 15:56:34 Atrial fibrillation 10683519 I48.0 chronic, stable. RCcontinue eliquiscon tinue norvasccon tinue amiodarone monitor HR Chronic ob structive pulmonary disease 07316070 J41.0 chronic stablecont inue inhalersmo nitor for changes in respirator y status Congestive heart failure 97207832 I50.22 chronic, stablecont inue lasix 20mg dailymonit or BMP Essential hypertension 80718976 I10 chronic stablecont inue norvasc and losartanal so on lasix Hyperlipidemia 50186251 E78.49 continue atorvastat inmonitor lipids annually [id number] Jenni Kwong MD [address] [place] [address] 09/09/2023 08:10:55 09/15/2023 10:16:26 Impaired cognition 588702397 R41.89 will monitor and support as needed Mixed anxi ety and depressive disorder 968465326 F41.8 buspirone 5 mg tidtrazodo ne 100 mg at hsbupropri on 100 mg dailyescit alopram 10 mg dailyhydro xyzine 10 mg q8h prn anxietywil l monitor Atrial fibrillation 4943 6004 I48.0 apixaban 5 mg bidbisopro lol 2.5 mg dailyamiod arone 200 mg dailywill monitor Essential hypertension 22473651 I10 bisoprolol 2.5 mg dailyamlod ipine 5 mg dailyfuros emide 20 mg dailylosar miller 25 mg dailycloni dine 0.1 mg [id number] monitor Hyperlipidemia 11730719 E78.49 atorvastat in 40 mg dailywill monitor Chronic ob structive pulmonary disease 99114652 J41.0 Advair 250-50: one puff [id number] rol HFA: 2 puffs q4h prnwill monitor Gastroesop hageal reflux disease without esophagitis 786200054 K21.9 pantoprazo le 40 mg dailywill monitor Restless l egs syndrome 14936196 G25.81 ropinirole 0.25 mg dailywill monitor Cobalamin deficiency 190 873325 E53.8 B12 500 mcg dailywill monitor [id number] [facility] [address] [place] [address] 09/21/2023 11:12:35 09/23/2023 09:57:55 Acute dermatitis 99531243 L30.9 left upper facial near left eye [...] provide new make up brushes Impaired cognition 17397 6002 R41.89 will monitor and support as needed [id number] [facility] MARCIO DONG [address] [place] [address] [place] [address] 09/22/2023 15:18:31 09/24/2023 12:07:21 Impaired cognition 102631667 R41.89 will monitor and support as needed Pain of le ft knee region 2094557912 27426 M25.562 see hpiwill scheduled 975 mg tylenol TIDxray left knee 2 viewsconsi christiano PT/OT eval if imaging is negative for fx. [id number] [facility] [address] [place] [address] [place] [address] 10/13/2023 18:47:09 10/15/2023 17:16:34 Cough 65284555 R05.9 10/11: started mucinex 600 mg q [...] dayincreas e oral hydrationm onitor resp status [id number] [facility] [address] [place] [address] [place] [address] 10/29/2023 11:14:47 11/03/2023 12:16:03 Impaired cognition 509310677 R41.89 Continue supportive care, expect decline.HC P invokedMon itor mood and behaviors. Psych consult prn. Essential hypertension 68018265 I10 BP has been controlled with current medicatios .Continue bisoprolol 2.5 mg qd, lasix 20 mg qd, losartan 25 mg qd. amlodipine 5 mg qd and clonidine 0.1 mg BID.Monito r BP and labs. Congestive heart failure 38881720 I50.22 euvolemic. Continue bisoprolol 2.5 mg qd, lasix 20 mg qd and losartan 25 mg qd.Monitor resp. status, fluid status, wts and labs. Atrial fibrillation 4943 6004 I48.0 HR controlled continue amiodarone 200 mg qd.Continu e eliquis 5 mg BID for AC.Monitor HR and bleeding risk. Chronic ob structive pulmonary disease 78458161 J43.8 Continues at baseline.C ontinue Advair 100/25 mcg BID and albuterol MDI 2 puffs q 4 hrs prn.Monito r resp. status. Osteoporosis 02981160 M8 1.0 Continue cholecalci ferol 2000 IU qd, calcium 500 mg BID, and risedronat e 35 mg weeklyMoni tor as outpt. Gastroesop hageal reflux disease without esophagitis 493284204 K21.9 No current sxs.Contin ue pantoprazo le 40 mg qd.Monitor sxs. Hyperlipidemia 13761136 E78.49 Continue atorvastat in 40 mg qd.Monitor labs as outpt. Mixed anxi ety and depressive disorder 857098790 F41.8 Continue bupropion ER 100 mg qd, Buspar 5 mg TID, clonidine 0.1 m BID, and trazodone 100 mg qhs,lexapr o 10 mg daily and hydroxyzin e 10 mg qdMonitor mood.Psych consult prn. Restless l egs syndrome 85782034 G25.81 Continue requip 0.25 mg qhs.Monito r sxs. Mixed urin laura incontinence 458378185 N39.46 Continue estring 2 mg q 3 monthsMoni tor urinary function.F /U with uro prn. Tear of skin 312384674 T 14.8XXA LLE flap tear, approximat edcontinue to monitor healing. [id number] [facility] [address] [place] [address] 11/10/2023 12:24:35 11/23/2023 12:50:14 Pain of shoulder region 12156733 M25.519 right shoulder pain+ discomfort with abduction, suspect OAnursing to give now dose tylenol and continue prnPT/OT eval and treatwill monitor. [id number] [facility] [address] [place] [phone] 11/25/2023 11:56:55 11/27/2023 12:02:47 Candidiasis of vagina 04732118 B37.31 vaginal redness appears yeastPatie nt has no discomfort start diflucan 150 mg Q72 for 3 dosesPt is incontinen t, nursing encourage to check for incontinen t episode and change Q2.keep skin clean and drymonitor for resolution [id number] MD MARCIO Ramirez IKER [address] [place] [address] rd [place] [address] 01/15/2024 21:46:22 02/02/2024 07:55:44 Impaired cognition 388217701 R41.89 Continues at baseline.C ontinue escitalopr am 10 mg qd, bupropion ER 100 mg qd, Buspar 5 mg TID, clonidine 0.1 m BID, trazodone 100 mg qhs, and hydroxyzin e 10 mg qd.Continu e supportive care, expect decline.HC P invokedMon itor mood and behaviors. Psych follows. Visual hallucinations 64 816733 R44.1 Psych follows, no mention of this in recent notes.Aida tor Essential hypertension 80856222 I10 Continues in good control.Co ntinue bisoprolol 2.5 mg qd, lasix 20 mg qd, losartan 25 mg qd. amlodipine 5 mg qd and clonidine 0.1 mg BID.Monito r BP and labs. Congestive heart failure 39224118 I50.22 Continues to be euvolemic. Continue bisoprolol 2.5 mg qd, lasix 20 mg qd and losartan 25 mg qd.Monitor resp. status, fluid status, wts and labs. Atrial fibrillation 4943 6004 I48.0 Rate in good control on meds as above and amiodarone 200 mg qd.Continu e eliquis 5 mg BID for AC.Monitor HR and bleeding risk. Chronic ob structive pulmonary disease 69254392 J43.8 Continues at baseline.C ontinue Advair 100/25 mcg BID and albuterol MDI 2 puffs q 4 hrs prn.Mucine x 600 mg BID added for cough in 10/2023.Mon itor resp. status. Osteoporosis 80146578 M8 1.0 Continue cholecalci ferol 2000 IU qd, calcium 500 mg BID, and risedronat e 35 mg weeklyMoni tor as outpt. Gastroesop hageal reflux disease without esophagitis 580043521 K21.9 No current sxs.Contin ue pantoprazo le 40 mg qd.Monitor sxs. Hyperlipidemia 97009127 E78.49 Continue atorvastat in 40 mg qd.Monitor labs as outpt. Mixed anxi ety and depressive disorder 642395549 F41.8 As above. Restless l egs syndrome 77156297 G25.81 She mentions this tonight.Co ntinue requip 0.25 mg qhs.Consid er increase to 0.5 mg qhs.Monito r sxs. Mixed urin laura incontinence 783531614 N39.46 Continue estring 2 mg q 3 months.Mon itor urinary function.F /U with uro prn. Cough 85602928 R05.9 Back to baseline.M onitor [id number] [facility] [address] [address] 02/24/2024 09:53:07 02/25/2024 10:07:37 Bacterial conjunctivitis 450265809 H10.9 see hpibilater al erythema, dry yellowish discharge noted on lashes and corners or eyesstart ofloxacin 0.3 % 2 gtts QID for 5 daysmonito r for resolution patient encouraged to avoid rubbing eyes, apply cool compress for comfort. [id number] [facility] [address] [address] 03/02/2024 10:16:42 03/04/2024 10:24:18 Bacterial conjunctivitis 143501936 H10.9 ofloxacin eye gtts completeds clera white, no drainage or discharge, denies didcomfort .bilateral erythema, dry yellowish discharge noted on lashes and corners or eyespatien t encouraged to avoid rubbing eyes, apply cool compress for comfort. Mixed anxi ety and depressive disorder 459018587 F41.8 followed by [facility] seen on 02/28 with recommenda tion for GDR she is currently on 4 psychotrop ic medication 03/02: decrease bupropion ER 100 mg qd to 75 mgcheck EKG for QTcContinu e , Buspar 5 mg TID, clonidine 0.1 m BID, and trazodone 100 mg qhs,lexapr o 10 mg daily and hydroxyzin e 10 mg qdMonitor mood.Psych prn [id number] [facility] [address] [address] 03/07/2024 15:12:42 03/09/2024 09:31:11 Recurrent falls 439969030 R29.6 see hpino acute injuries or reports of discomfort .nursing to continue post fall protocol. [id number] [facility] [address] [facility] [place] [address] 03/09/2024 10:14:06 03/15/2024 13:07:32 Impaired cognition 347648803 R41.89 Continue supportive care, expect decline.HC P invokedMon itor mood and behaviors. Psych consult prn. Essential hypertension 30023271 I10 Continue bisoprolol 2.5 mg qd, lasix 20 mg qd, losartan 25 mg qd. amlodipine 5 mg qd and clonidine 0.1 mg BID.Monito r BP and labs. Congestive heart failure 18985748 I50.22 euvolemic. she has been stableCont inue bisoprolol 2.5 mg qd, lasix 20 mg qd and losartan 25 mg qd.Monitor resp. status, fluid status, wts and labs. Atrial fibrillation 4943 6004 I48.0 denies any chest pain or other associated sx,continu e amiodarone 200 mg qd.Continu e eliquis 5 mg BID for AC.Monitor HR and bleeding risk. Chronic ob structive pulmonary disease 94818113 J43.8 Continues at baseline.C ontinue Advair 100/25 mcg BID and albuterol MDI 2 puffs q 4 hrs prn.Monito r resp. status. Osteoporosis 09781751 M8 1.0 Continue cholecalci ferol 2000 IU qd, calcium 500 mg BID, and risedronat e 35 mg weeklyMoni tor as outpt. Gastroesop hageal reflux disease without esophagitis 356738844 K21.9 tolerating a regular diet, no reported GI upsetConti nue pantoprazo le 40 mg qd.Monitor sxs. Hyperlipidemia 31926110 E78.49 Continue atorvastat in 40 mg qd.Monitor labs as outpt. Mixed anxi ety and depressive disorder 448618873 F41.8 Continue bupropion ER 100 mg qd, Buspar 5 mg TID, clonidine 0.1 m BID, and trazodone 100 mg qhs,lexapr o 10 mg daily and hydroxyzin e 10 mg qdMonitor mood.Psych consult prn. Restless l egs syndrome 64027746 G25.81 Continue requip 0.25 mg qhs.Monito r sxs. Mixed urin laura incontinence 033498067 N39.46 Continue estring 2 mg q 3 monthsMoni tor urinary function.F /U with uro prn. Bacterial conjunctivitis 372533863 H10.9 resolvedof loxacin eye gtts completeds stacy villalobos, no drainage or discharge, denies discomfort . Recurrent falls 98836596 2 R29.6 s/p fall 03/05no acute injuries or reports of discomfort .nursing to continue post fall protocol. [id number] [facility] [address] [address] 04/04/2024 13:13:21 04/05/2024 13:32:19 Viral conjunctivitis 35386202 B30.9 left eyeleft sclera erythema, lower lid swelling( aggravated by rubbing) with clear drainage.n o itchiness or discomfort start azelastine gtt BID for 14 day.monito r for resolution patient encouraged to avoid rubbing eyes, apply cool compress for comfort. [id number] [facility] [address] [place] [address] 04/07/2024 11:04:20 04/08/2024 12:46:40 Viral conjunctivitis 95507377 B30.9 left eye /stablelef t sclera erythema, lower lid swelling( aggravated by rubbing) with clear drainage.n o itchiness or discomfort start azelastine gtt BID for 14 day.- have not received med from pharmacy-m onitor for resolution patient encouraged to avoid rubbing eyes, apply cool compress for comfort. Acute urin laura tract infection 205859685 N39.0 see hpiwill start bactrim 400mg Q12 for 7 dayadd probiotic BIDencoura ged to have increased water consumptio n to flush out toxins Hypokalemia 48493353 E87 .6 subtle at 3.1will replete with kcl 20 meq times 2 daysmonito r for associated sx (weakness, cramping, twitching) patient to notify nursing staff with sx [id number] [facility] e [address] [facility] [place] [address] 04/28/2024 11:26:55 04/29/2024 11:42:54 Impaired cognition 638075690 R41.89 stableCont inue supportive care, expect decline.HC P invokedMon itor mood and behaviors. Psych consult prn. Essential hypertension 58014945 I10 Continue bisoprolol 2.5 mg qd, lasix 20 mg qd, losartan 25 mg qd. amlodipine 5 mg qd and clonidine 0.1 mg BID.Monito r BP and labs. Congestive heart failure 52608227 I50.22 euvolemic. she has been stableCont inue bisoprolol 2.5 mg qd, lasix 20 mg qd and losartan 25 mg qd.Monitor resp. status, fluid status, wts and labs. Atrial fibrillation 4943 6004 I48.0 denies any chest pain or other associated sx,continu e amiodarone 200 mg qd.Continu e eliquis 5 mg BID for AC.Monitor HR and bleeding risk. Chronic ob structive pulmonary disease 00112105 J43.8 Continues at baseline.C ontinue Advair 100/25 mcg BID and albuterol MDI 2 puffs q 4 hrs prn.Monito r resp. status. Osteoporosis 11878178 M8 1.0 Continue cholecalci ferol 2000 IU qd, calcium 500 mg BID, and risedronat e 35 mg weeklyMoni tor as outpt. Gastroesop hageal reflux disease without esophagitis 153159060 K21.9 tolerating a regular diet, no reported GI upsetConti nue pantoprazo le 40 mg qd.Monitor sxs. Hyperlipidemia 34631382 E78.49 Continue atorvastat in 40 mg qd.Monitor labs as outpt. Mixed anxi ety and depressive disorder 438251683 F41.8 Continue bupropion ER 100 mg qd, Buspar 5 mg TID, clonidine 0.1 m BID, and trazodone 100 mg qhs,lexapr o 10 mg daily and hydroxyzin e 10 mg qdMonitor mood.Psych consult prn. Restless l egs syndrome 94077374 G25.81 Continue requip 0.25 mg qhs.Monito r sxs. Mixed urin laura incontinence 719897386 N39.46 Continue estring 2 mg q 3 monthsMoni tor urinary function.F /U with uro prn. Acute urin laura tract infection 422924849 N39.0 completed abxencoura ged to have increased water consumptio n to flush out toxins Hypokalemia 44026150 E87 .6 subtle at 3.1will replete with kcl 20 meq times 2 daysmonito r for associated sx (weakness, cramping, twitching) patient to notify nursing staff with sx [id number] [facility] [address] [address] 05/09/2024 11:39:53 05/10/2024 13:50:01 Pain of shoulder region 71817733 M25.519 see HPInon traumatic right shoulder painGive now dose for tramadol 50 mg then tramadol 50 mg Q6 prnschedul e tylenol 1 g TIDxray 3 viewscan apply ice for pain or heat for comfort [id number] [facility] [address] [address] 05/19/2024 09:40:12 05/23/2024 12:46:45 Pain of shoulder region 84789688 M25.519 non traumatic right shoulder pain-xray negative for any acute findings.c ontinue tramadol 50 mg Q6 prnschedul e tylenol 1 g TID [id number] [facility] [address] [address] 06/16/2024 08:41:53 06/22/2024 12:46:48 Diplopia 93826147 H53.2 intermitte nt12/4 opthamolog y exam showed esophoria at distance , divergence insufficie ncy can be neurologic al neurology consult recommende d, otherwise follow up in 1 year. Impaired cognition 47233 6002 R41.89 Continue supportive care, expect decline.HC P invokedcon tinue to monitor mood and behaviors with recent med changes Essential hypertension 47292850 I10 Continue bisoprolol 2.5 mg qd, lasix 20 mg qd, losartan 25 mg qd. amlodipine 5 mg qd and clonidine 0.1 mg BID.Monito r BP and labs. Congestive heart failure 17752409 I50.22 euvolemic. she has been stableCont inue [...] bleeding risk. Chronic ob structive pulmonary disease 78756922 J43.8 Continue Advair 100/25 mcg BID and albuterol MDI 2 puffs q 4 hrs prn.Monito r resp. status. Osteoporosis 10729578 M8 1.0 Continue cholecalci ferol 2000 IU qd, calcium 500 mg BID, and risedronat e 35 mg weeklyMoni tor as outpt. Gastroesop hageal reflux disease without esophagitis 129773201 K21.9 tolerating a regular diet, no reported GI upsetpanto prazole discontinu ed due to QTc Hyperlipidemia 05467269 E78.49 Continue atorvastat in 40 mg qd.Monitor labs as outpt. Mixed anxi ety and depressive disorder 221710112 F41.8 nursing reports daily anxiety, currently on [...] of hydroxyzin e Restless l egs syndrome 96008882 G25.81 Continue requip 0.25 mg qhs.Monito r sxs. Mixed urin laura incontinence 225562127 N39.46 Continue estring 2 mg q 3 monthsMoni tor urinary function.F /U with uro prn. [id number] [facility] [address] [place] [address] 06/20/2024 10:53:20 06/21/2024 14:19:17 Diplopia 47276995 H53.2 intermitte nt12/4 opthamolog y exam showed esophoria at distance , divergence insufficie ncy can be neurologic al neurology consult recommende d, otherwise follow up in 1 year.she will discuss with family Mixed anxi ety and depressive disorder 393519848 F41.8 nursing reports daily anxiety, currently on [...] and bleeding risk. Prolonged QT interval 11 1028967 I45.81 HX afib.QTc 467GDR - amiodarone and protonix decreased, hydroxyzin e stoppedden ies any associated sx/ no dizziness, palpitatio n etc.repeat ekg in 1 week [id number] [facility] [address] [place] [address] [place] [address] 07/01/2024 08:22:16 07/04/2024 15:48:50 Respiratory tract congestion and cough 628071850 R05.9 non productive chest xray complete:T he lung johansen are clear without mass, infiltrate , congestion , or effusion. SARS-CoV-2 467474557 U07 .1 07/01 positive teststart Molnupirav ir 800 mg BID for 5 dayscontin ue supportive therapy with oxygen prnisolati on precaution [id number] [facility] [address] [place] [address] [place] [address] 07/04/2024 09:57:50 07/05/2024 09:55:44 Respiratory tract congestion and cough 704499562 R05.9 no cough appreciate d on exam SARS-CoV-2 556005003 U07 .1 07/01 positive testcopnti gregoria Dela Cruzupirav ir 800 mg BID for 5 dayscontin ue supportive therapy with oxygen prnisolati on precaution [id number] [facility] [address] [facility] [address] 10/09/2024 10:55:30 10/13/2024 16:07:53 Mixed anxiety and depressive disorder 904266514 F41.8 stablecont inue escitalopr am, BusPIRone and trazodone Impaired cognition 67567 6002 R41.89 Continue supportive care, expect decline.HC P invokedcon tinue to monitor mood and behaviors with recent med changes Essential hypertension 86562027 I10 stableCont inue bisoprolol 2.5 mg qd, lasix 20 mg qd, losartan 25 mg qd. amlodipine 5 mg qd and clonidine 0.1 mg BID.Monito r BP and labs. Congestive heart failure 63157740 I50.22 euvolemic. stableCont inue bisoprolol 2.5 mg qd, lasix 20 mg qd and losartan 25 mg qd.Monitor resp. status, fluid status, wts and labs. Atrial fibrillation 4943 6004 I48.0 stablerate controlled cont amiodarone to 100 mg qdContinue eliquis 5 mg BID for AC.Monitor HR and bleeding risk. Chronic ob structive pulmonary disease 88326034 J43.8 stableCont inue Advair 100/25 mcg BID and albuterol MDI 2 puffs q 4 hrs prn.Monito r resp. status. Gastroesop hageal reflux disease without esophagitis 512293788 K21.9 stabletole rating a regular diet, no reported GI upsetpanto prazole discontinu ed due to QTc Hyperlipidemia 59459336 E78.49 Continue atorvastat in 40 mg qd.Monitor labs as outpt. [id number] Abhi Erickson MD [facility] [address] [place] [address] [place] [address] 10/12/2024 11:19:17 10/14/2024 08:28:33 Impaired cognition 697133231 R41.89 baseline impaired cognitionH CP invokedmon itor for behaviorsp sych eval prn Pruritic rash 99316708 L 28.2 eschar x 2 present left wristdoes not appear infectedsu rrounding pruritisat arax 25 mg q 8 prnmonitor for effect [id number] MD MARCIO Ayers [address] [place] [address] [place] [address] 10/24/2024 12:55:25 10/26/2024 11:39:25 Thrombocytosis 4827213 D75.839 D75.838 32308 acute thrombocyt osisrepeat stat cbc to recheck plt levelif remains elevated will starthydre a 1000 mg qd and request heme consult Leukocytosis 914709691 D 72.829 see above Impaired cognition 03215 6002 R41.89 baseline impaired cognitionH CP invokedcoo rdinate with HCP as needed for further workup [id number] DARVIN MARIE CNP [address] [place] [address] 10/26/2024 12:10:11 11/01/2024 08:15:11 Thrombocytosis 5379764 D75.839 D75.838 52485 acute thrombocyt osisimprov ing with hydrea 1000 mg daily.repe at stat cbc to recheck plt level next week.if remains elevated will startconti nue hydrea 1000 mg dialy and will request heme consult Leukocytosis 386321844 D 72.829 improving. see above Impaired cognition 13260 6002 R41.89 baseline impaired cognitionH CP invokedcoo rdinate with HCP as needed for further workup [id number] DARVIN MARIE CNP [address] [place] [address] 11/16/2024 10:25:17 11/18/2024 12:49:51 Thrombocytosis 8584278 D75.839 D75.838 25974 acute thrombocyt osisimprov ing with hydrea 1000 mg daily.Plt 300 on 11/14/24.elida l d/c hydrean 1000 mg and monitor CBC on Thursday, .R equest heme consult Leukocytosis 682392799 D 72.829 improving. see above Impaired cognition 43421 6002 R41.89 baseline impaired cognitionH CP invokedcoo rdinate with HCP as needed for further workup Mixed anxi ety and depressive disorder 104929006 F41.8 stablecont inue current psychotrop ic medication Essential hypertension 00767956 I10 stableCont inue bisoprolol 2.5 mg qd, lasix 20 mg qd, losartan 25 mg qd. amlodipine 5 mg qd and clonidine 0.1 mg BID.Monito r BP and labs. Congestive heart failure 99779009 I50.22 euvolemic. stableCont inue bisoprolol 2.5 mg qd, lasix 20 mg qd and losartan 25 mg qd.Monitor resp. status, fluid status, wts and labs. Atrial fibrillation 4943 6004 I48.0 stablerate controlled cont amiodarone to 100 mg qdContinue eliquis 5 mg BID for AC.Monitor HR and bleeding risk. Chronic ob structive pulmonary disease 94225894 J43.8 stableCont inue Advair 100/25 mcg BID and albuterol MDI 2 puffs q 4 hrs prn.Monito r resp. status. Gastroesop hageal reflux disease without esophagitis 387178680 K21.9 stabletole rating a regular diet, no reported GI upsetpanto prazole discontinu ed due to QTc Hyperlipidemia 42348314 E78.49 Continue atorvastat in 40 mg qd.Monitor labs as outpt. [id number] [facility] [address] [place] [address] 01/18/2025 05:50:29 01/20/2025 13:05:29 Mixed anxiety and depressive disorder 432220047 F41.8 stablecont inue escitalopr am, BusPIRone and trazodone Impaired cognition 08264 6002 R41.89 Continue supportive care, expect decline.HC P invokedcon tinue to monitor mood and behaviors with recent med changes Essential hypertension 35318375 I10 stableCont inue bisoprolol 2.5 mg qd, lasix 20 mg qd, losartan 25 mg qd. amlodipine 5 mg qd and clonidine 0.1 mg BID.Monito r BP and labs. Congestive heart failure 21543118 I50.22 euvolemic. stableCont inue bisoprolol 2.5 mg qd, lasix 20 mg qd and losartan 25 mg qd.Monitor resp. status, fluid status, wts and labs. Atrial fibrillation 4943 6004 I48.0 stablerate controlled cont amiodarone to 100 mg qdContinue eliquis 5 mg BID for AC.Monitor HR and bleeding risk. Chronic ob structive pulmonary disease 11227423 J43.8 stableCont inue Advair 100/25 mcg BID and albuterol MDI 2 puffs q 4 hrs prn.Monito r resp. status. Gastroesop hageal reflux disease without esophagitis 117131063 K21.9 stabletole rating a regular diet, no reported GI upsetpanto prazole discontinu ed due to QTc Hyperlipidemia 79486062 E78.49 Continue atorvastat in 40 mg qd.Monitor labs as outpt. Health Concerns Section Related Observation LastModified by Organization Detai ls LastModified Time None Recorded Concern Status LastModified by Organization Details LastModified Time None Recorded Advance Directives Directive Y: Payers Insurance Date Sequence Insurance Name Policy Number Policy Burdick Covered Member ID Burdick Member ID Guarantor Name 01/18/2025 2 () Hillary Stanislaus [id number] Hillary Naila 01/18/2025 1 [place]ICARE [place]: [employer] Hillary Pena Stanislaus [id number] Hillary Naila 10/17/2023 2 UNSPECIFIED REMIT PAYOR Hillary Yoo Notes Date Note Type Note Provider Name and Address Organization Details Recorded Time 10/12/2024 text/html Patient is a 74 yo female resident asked to al for MD visit with pruritis left hand. Patient with dementia at baseline, brother in room helps with hx. Patient sitting in wheelchair in NAD. Abhi Erickson MD [address] [place] [address], [address], [place], [address], [facility] 10/12/2024 11:58:18 10/24/2024 text/html Patient is a 74 yo female resident seen for acute rounding. CBC was ordered showing significant elevated of [id number] and mild elevation of WBC. Patient with baseline dementia lying in bed in NAD Abhi Erickson MD [address] [facility], [address], [place], [address], [facility] 10/24/2024 13:06:12 10/26/2024 text/html Patient is a 74 yo female resident seen for acute rounding. CBC was ordered showing significant elevated of [id number]=2388 and mild elevation of WBC on 10/24. Pt started hydrea 1000 mg daily. Repeat lab result reviewed today. Patient with baseline dementia lying in bed in NAD DARVIN MARIE CNP [address] [facility] [facility] [address], [place], [address], [facility] 10/26/2024 12:27:33 11/16/2024 text/html Patient is a 74 yo female LTC resident seen for annual exam.She has been here after multiple falls and a resulting large right thigh hematoma, needing I&D and drains. Also was COVID+ and had a sub-acute left femur fx. She completed rehab and remained too weak to be able to return to [facility] and so is now LTC. Pt had labs, [id number]=[id number] and mild elevation of WBC on 10/24. [...] with baseline dementia lying in bed in [facility] DARVIN MARIE CNP [address], [address], [place], [address], [facility] 11/16/2024 11:44:39 01/18/2025 text/html ROS as noted in the HPI Hillary is a 74 yr old LTC resident seen for routine rounding. She has been at her baseline in [facility]. no changes in appetite or elimination, there are no acute nursing concerns. REGI COLÓN [address], [address], [place], [address], [facility] 01/19/2025 18:55:56 OBGyn Episode No OBEpisode recorded.
[2025-06-14 06:33] LABS: Hematocrit 38.6 % (37.0-47.0); Hemoglobin 12.3 g/dl (12.0-16.0); Imm Gran Abs Auto 0.07 X10*3/uL (0.00-0.03); Imm Gran Pct Auto 1.1 % (0.0-0.4); Lymphocytes Absolute Auto 1.7 X10*3/uL (1.2-4.9); Mean Corpuscular HGB Conc 31.9 g/dl (31.0-35.0); Mean Corpuscular Hemoglobin 25.5 pg (27.0-33.0); Mean Corpuscular Volume 80.1 fL (80.0-98.0); NRBC Abs Auto 0.000 X10*3/uL (0.0-0.012); NRBC Pct Auto 0.0 /100WBC (0.0-0.2); Platelet Count 538 X10*3/uL (160-400); Red Blood Count 4.82 X10*6/uL (4.20-5.50); White Blood Count 6.6 X10*3/uL (4.8-10.8)
[2025-06-14 06:52] LABS: Alanine Aminotransferase 15 U/L (0-31); Albumin Level 3.5 g/dL (3.5-5.0); Alkaline Phosphatase 80 U/L (39-117); Anion Gap 13 (12-20); Aspartate Amino Transferase 22 U/L (5-31); Blood Urea Nitrogen 15 mg/dL (9-16); Calcium 9.0 mg/dL (8.4-10.2); Carbon Dioxide 23 mmol/L (22-29); Chloride 107 mmol/L (96-108); Estimated Glomerular Filt Rate > 60; Potassium 3.3 mmol/L (3.3-5.1); Sodium 140 mmol/L (135-145); Total Protein 5.8 g/dL (6.5-8.0)
[2025-06-14 07:06] LABS: Thyroid Stimulating Hormone 0.58 uIU/mL (0.32-4.0)
== END 2025-06-14 06:06 | disposition home or self-care (01) ==
LOC: HO.MMNH3L 06:05
PROVIDERS: Visit Provider Physician Assistant Medical
DX: J44.9 Chronic obstructive pulmonary disease, unspecified (principal); E03.9 Hypothyroidism, unspecified
CPT/HCPCS: 36415; 80053; 84443; 85025

== ENCOUNTER 2025-06-15 07:01 | Outpatient (REF) | payer MEDICARE, MEDICAID, SELFPAY ==
--- OUTSIDE RECORDS SUMMARY | 2025-06-15 07:04 | XMS_ITS | Clinical Summary ---
Author Organization [facility] Address [address] [place] [address] Phone Care Team Providers Care Data Warehousing Manager Name Role Phone Unavailable Primary Care Provider [...] complete this topic Insurance Medicare Spina Bifida ([id number]) Medicare Spina Bifida ([id number])
[2025-06-15 07:50] LABS: Hematocrit 40.3 % (37.0-47.0); Hemoglobin 12.6 g/dl (12.0-16.0); Imm Gran Abs Auto 0.03 X10*3/uL (0.00-0.03); Imm Gran Pct Auto 0.4 % (0.0-0.4); Lymphocytes Absolute Auto 1.7 X10*3/uL (1.2-4.9); Mean Corpuscular HGB Conc 31.3 g/dl (31.0-35.0); Mean Corpuscular Hemoglobin 25.8 pg (27.0-33.0); Mean Corpuscular Volume 82.4 fL (80.0-98.0); NRBC Abs Auto 0.000 X10*3/uL (0.0-0.012); NRBC Pct Auto 0.0 /100WBC (0.0-0.2); Platelet Count 515 X10*3/uL (160-400); Red Blood Count 4.89 X10*6/uL (4.20-5.50); White Blood Count 7.2 X10*3/uL (4.8-10.8)
[2025-06-15 07:51] LABS: MANUAL DIFF FLAG SCAN
[2025-06-15 08:22] LABS: Alanine Aminotransferase 16 U/L (0-31); Albumin Level 3.3 g/dL (3.5-5.0); Alkaline Phosphatase 75 U/L (39-117); Anion Gap 15 (12-20); Aspartate Amino Transferase 38 U/L (5-31); Blood Urea Nitrogen 17 mg/dL (9-16); Calcium 8.7 mg/dL (8.4-10.2); Carbon Dioxide 20 mmol/L (22-29); Chloride 108 mmol/L (96-108); Cholesterol 96 mg/dL (<200); Estimated Glomerular Filt Rate > 60; HDL Cholesterol 44 mg/dL (>40); Potassium 3.9 mmol/L (3.3-5.1); Sodium 139 mmol/L (135-145); Total Protein 6.0 g/dL (6.5-8.0); Triglycerides 43 mg/dL (<150)
[2025-06-15 08:25] LABS: Thyroid Stimulating Hormone 0.58 uIU/mL (0.32-4.0)
== END 2025-06-15 07:02 | disposition home or self-care (01) ==
LOC: HO.MMNH3L 07:01
PROVIDERS: Visit Provider Physician Assistant Medical
DX: J44.9 Chronic obstructive pulmonary disease, unspecified (principal); I50.9 Heart failure, unspecified; E78.5 Hyperlipidemia, unspecified
CPT/HCPCS: 36415; 80053; 80061; 84443; 85025

== ENCOUNTER 2025-06-22 06:17 | Outpatient (REF) | payer MEDICARE, MEDICAID, SELFPAY ==
[2025-06-22 06:20] LABS: MANUAL DIFF FLAG NO
--- OUTSIDE RECORDS SUMMARY | 2025-06-22 06:21 | XMS_ITS | Data Portability ---
Author Organization [facility] Simphatic [facility], Main Office Address [address] [place] [address] Care Team Providers Care Plate Stacker Name Role Phone MARCIO DONG 3RD FLOOR OTHER Assessment Encounter Date Assessment Date Assessment LastModified by Organization Details LastModified Time 10/26/2024 10/26/202410/24 wbc=12.2 hb=13.3 kxz=8970 bun=11 cre=0.69 10/26 wbc 9, hgb 12.1, Plt 1017 Not available 10/26/2024 12:27:13 11/16/2024 11/16/202410/24 wbc=12.2 hb=13.3 taa=2264 bun=11 cre=0.69 10/26 wbc 9, hgb 12.1, [...] Address Organization Details Recorded Time Recurrent falls 867421418 Active 2022 JUAN MANUEL MORALES NP [address], [place], [address], [facility] 11:13:43 Osteoarthr itis 504818034 Active 2022 JUAN MANUEL MORALES NP [address], [address], [place], [address], [facility] 3 11:13:48 Chronic obstructiv e pulmonary disease 45101715 Active 2022 JUAN MANUEL MORALES NP [address], [address], [place], [address], [facility] 3 11:13:52 Gastroesop hageal reflux disease without esophagiti s 907427656 Active 2022 JUAN MANUEL MORALES NP [address], [address], [place], [address], [facility] 3 11:13:58 Congestive heart failure 97821446 Active 2022 JUAN MANUEL MORALES NP [address], [address], [place], [address], [facility] 3 11:14:03 Atrial fibrillati on 95787554 Active 2022 JUAN MANUEL MORALES NP [address], [place], [address], [facility] 3 11:14:08 Hematoma of right thigh 241084585323 19904 Active 2022 JUAN MANUEL MORALES NP [address], [place], [address], [facility] 3 11:14:21 Essential hypertensi on 99718886 Active 2022 JUAN MANUEL MORALES NP [address], [place], [address], [facility] 3 11:40:46 Hyperlipid emia 48643912 Active 2022 JUAN MANUEL MORALES NP [address], [place], [address], [facility] 3 11:41:07 Mixed anxiety and depressive disorder 302492476 Active 2022 JUAN MANUEL MORALES NP [address], [address], [place], [address], [place] [facility] 3 11:41:48 Impaired cognition 081227361 Active 2022 Sandra Morrison MD [address], [place], [address], [facility] 3 01:04:56 Overactive urinary bladder 606090698 Active 2022 Sandra Morrison MD [address], [place], [address], [facility] 3 01:13:05 Dry eyes 107480338 Active 2022 Sandra Morrison MD [address], [place], [address], [facility] 3 01:14:09 Hematoma 353816243 Active 2022 left buttock JUAN MANUEL MORALES, TONY [address], [place], [address], [facility] 3 13:03:34 Leukocytos is 021493056 Active 2023 JUAN MANUEL MORALES NP [address], [address], [place], [address], [facility] 4 12:21:55 Restless legs syndrome 57505731 Active 2023 Sandra Morrison MD [address], [place], [address], [facility] 4 18:41:39 Mixed urinary incontinen ce 659362309 Active 2023 Sandra Morrison MD [address], [place], [address], [facility] 4 18:42:46 Bacterial conjunctiv itis 992193792 Active 2023 REGI COLÓN [address], [place], [address], [facility] 4 17:01:03 Thrombocyt osis 6932587 Active 2024 Abhi Erickson MD [address], [place], [address], [facility] 13:01:15 Notes:Some problems listed i n Document: #[id number] could not be added to this patient's [...] 167.64 cm 140/80 mm[Hg] Abhi Erickson MD [address] [place] [address] [address], [place], [address], [facility] 10/24/2024 12:57:01 Date Recorded Body height Provider Name an d Address Organization Details Last Updated DateTime 01/18/2025 167.64 cm REGI COLÓN [address] [place] [address], [place], [address], [facility] 01/19/2025 18:53:56 Social History Question Answer Notes LastModified by Organizat ion Details LastModified Time Tobacco Smoking Status Former Smoker JUAN MANUEL MORALES NP [address] [place] [address], [place], [address], [facility] 08/08/2022 11:11:20 Do You Have An Advance Directive? Yes Information not available 08/11/2022 What Is Your Code Status? Full Code Information not available 08/11/2022 Where Do You Live? [facility], Previously Lived Alone, No Stairs Information not available 05/15/2023 Legal Guardian? No Informati on not available 08/12/2022 Do You Have A Medical Power Of Director Project Management? Yes Information not available 08/12/2022 What Was [...] PF 05/22/2022 completed Maryam hernandez MA - [facility] 07/30/2023 12:41:28 Past Encounters Encounter ID Performer Location Encounter Start Date Encounter Closed Date Diagnosis/Indication Diagnosis SNOMED-CT Code Diagnosis ICD10 Code Diagnosis IMO Codes Diagnosis Note [id number] TONY ALMARAZ [address] [facility] [place] [address] 08/08/2022 09:43:58 08/12/2022 10:33:59 Recurrent falls 281718372 R29.6 PT OT eval and treatfall precaution sfrequent safety checks Hematoma o f right thigh 0544081073 3517734 S70.11XA change dressing per ordersmoni tor for increased swellingav oid further falls Atrial fibrillation 4943 6004 I48.91 amiodarone 200 mg dailyeiliq uis 5 mg bidbisopro lol 2.5 mg daily Chronic ob structive pulmonary disease 17299873 J44.9 albuterol inhaler q4hr prnadvair 100/25 daily Congestive heart failure 56811147 I50.9 lasix 20 mg dailylosar miller 25 mg daily Osteoarthritis 729496250 M19.90 cholecalci ferol 2000 dailyrisen dronate 35 weekly Gastroesop hageal reflux disease without esophagitis 839536579 K21.9 CaCarb 500 bidprotoni x 40 mg daily Essential hypertension 63715782 I10 amlodipine 5 mg dailycloni dine 0.1 mg q12 hr Hyperlipidemia 65917870 E78.5 atorvastat in 40 mg daily Mixed anxi ety and depressive disorder 591402730 F41.8 bupropion er 150 mg dailytrazo done 100 mg hs JUAN MANUEL MORALES NP [facility] [address] [place] [address] 08/11/2022 14:11:22 08/13/2022 13:57:19 Hematoma of right thigh 1924621893 6733900 S70.11XA change dressing per ordersmoni tor for increased swellingav oid further falls Congestive heart failure 66521734 I50.9 lasix 20 mg dailylosar miller 25 mg daily [id number] MD MARCIO Ramirez [address] [place] [address] 08/12/2022 17:25:40 08/18/2022 16:13:47 Hematoma of right thigh 7190155647 7070884 S70.11XD With minimal drainage from drains.Lik bruno will get removed at appt tomorrow.M onitor thigh for healing.Mo nitor CBC. Congestive heart failure 80830235 I50.22 Appears euvolemic. Continue bisoprolol 2.5 mg qd, lasix 20 mg qd and losartan 25 mg qd.Monitor resp. status, fluid status, wts and labs. Recurrent falls 36526085 2 R29.6 Very deconditio demetrius.Needs PT/OT for strengthen ing, balance, gait training, safety and function.C ontinue fall precaution s.Monitor for safety. Atrial fibrillation 4943 6004 I48.0 Rate in good control on meds as above and amiodarone 200 mg qd.Continu e eliquis 5 mg BID for AC.Monitor HR and bleeding risk. Chronic ob structive pulmonary disease 29877676 J43.8 At baseline.C ontinue Advair 100/25 mcg BID and albuterol MDI 2 puffs q 4 hrs prn.Monito r resp. status. Gastroesop hageal reflux disease without esophagitis 999826641 K21.9 No current sxs.Contin ue pantoprazo le 40 mg qd.Monitor sxs. Essential hypertension 49324114 I10 Systolic has been high periodical ly, likely due to pain.No change in meds for now.Contin ue meds as above and amlodipine 5 mg qd and clonidine 0.1 mg BID.Monito r BP and labs. Hyperlipidemia 52144460 E78.49 Continue atorvastat in 40 mg qd.Monitor labs as outpt. Mixed anxi ety and depressive disorder 342378869 F41.8 Mood ok tonight.Co ntinue bupropion ER 150 mg qd and trazodone 100 mg qhsMonitor mood.Psych consult prn. Osteoporosis 58133643 M8 1.0 Continue cholecalci ferol 2000 IU qd, calcium 500 mg BID, and risedronat e 35 mg weeklyMoni tor as outpt. [id number] TONY ALMARAZ [address] [place] [address] 08/14/2022 11:52:29 08/18/2022 16:23:58 Chronic obstructive pulmonary disease 27574498 J44.9 albuterol inhaler q4hr prnadvair 100/25 daily Congestive heart failure 10899650 I50.9 lasix 20 mg dailylosar miller 25 mg daily [id number] JUAN MANUEL MORALES NP [address] [address] 08/20/2022 13:24:34 08/22/2022 13:09:35 Chronic obstructive pulmonary disease 10201141 J43.8 albuterol inhaler q4hr prnadvair 100/25 daily Mixed anxi ety and depressive disorder 010613138 F41.8 bupropion er 150 mg dailytrazo done 100 mg hsmonitor and chart any changes in mood or behaviorsp sych prn [id number] JUAN MANUEL MORALES NP [facility] [address] [place] [address] 08/27/2022 10:50:59 09/02/2022 10:27:22 Hematoma of right thigh 3068146507 3647804 S70.11XD change dressing per ordersmoni tor for increased swellingav oid further fallsWBAT Chronic ob structive pulmonary disease 59353965 J43.8 albuterol inhaler q4hr prnadvair 100/25 daily Recurrent falls 02670556 2 R29.6 PT OT eval and treatfall precaution sfrequent safety checks [id number] JUAN MANUEL TONY MORALES [facility] [address] [place] [address] 09/03/2022 10:52:54 09/05/2022 13:45:58 Chronic obstructive pulmonary disease 47931751 J43.8 albuterol inhaler q4hr prnadvair 100/25 daily Recurrent falls 41697817 2 R29.6 PT OT eval and treatfall precaution sfrequent safety checks [id number] JUAN MANUEL TONY MORALES [address] [address] 09/05/2022 10:51:26 09/09/2022 07:59:39 Recurrent falls 411797853 R29.6 PT OT eval and treatfall precaution sfrequent safety checks Hematoma o f right thigh 1664716883 1217231 S70.11XA [facility] for increased swellingav oid further falls Atrial fibrillation 4943 6004 I48.91 amiodarone 200 mg dailyeiliq uis 5 mg bidbisopro lol 2.5 mg daily Chronic ob structive pulmonary disease 62676830 J44.9 albuterol inhaler q4hr prnadvair 100/25 daily Congestive heart failure 23448496 I50.9 lasix 20 mg dailylosar miller 25 mg daily Osteoarthritis 355872514 M19.90 cholecalci ferol 2000 dailyrisen dronate 35 weekly Gastroesop hageal reflux disease without esophagitis 958590877 K21.9 CaCarb 500 bidprotoni x 40 mg daily Essential hypertension 80215143 I10 amlodipine 5 mg dailycloni dine 0.1 mg q12 hr Hyperlipidemia 57568191 E78.5 atorvastat in 40 mg daily Mixed anxi ety and depressive disorder 787746145 F41.8 bupropion er 150 mg dailytrazo done 100 mg hs [id number] Sandra Morrison MD [facility] [address] [place] [address] 10/07/2022 18:29:02 10/10/2022 15:21:01 Abrasion and/or friction burn of back without infection 99377852 S30.810A With open abrasion.W ill use local care and protection with dressings and monitor sxs. Fall W18.39XA Pt. reminded to call for help when she wants to get up.Continu es to need PT/OT for strengthen ing, balance, gait training, safety and function.C ontinue fall precaution s.Monitor for safety. Essential hypertension 52274654 I10 Systolic was very high this AM, not rechecked since fall. Overall good recently.C ontinue bisoprolol 2.5 mg qd, lasix 20 mg qd, losartan 25 mg qd. amlodipine 5 mg qd and clonidine 0.1 mg BID.Monito r BP and labs. [id number] Sandra Morrison MD [address] [place] [address] 10/09/2022 13:55:48 10/14/2022 11:00:12 Abrasion and/or friction burn of back without infection 80927800 S30.810A Abrasion healing.Co ntinue local care and protection with dressings and monitor sxs. fall W18.39XA Fall 2 days ago.Contin ues to need PT/OT for strengthen ing, balance, gait training, safety and function.C ontinue fall precaution s.Monitor for safety. Essential hypertension 36195209 I10 Continues with intermitte nt elevated SBP, [...] and labs. Hematoma o f right thigh 6881510862 0241922 S70.11XD Healed.CBC stable. Congestive heart failure 79982407 I50.22 Continues to be euvolemic. Continue bisoprolol 2.5 mg qd, lasix 20 mg qd and losartan 25 mg qd.Monitor resp. status, fluid status, wts and labs. Atrial fibrillation 4943 6004 I48.0 Rate remains in good control on meds as above and amiodarone 200 mg qd.Continu e eliquis 5 mg BID for AC.Monitor HR and bleeding risk. Chronic ob structive pulmonary disease 73804706 J43.8 Continues at baseline.C ontinue Advair 100/25 mcg BID and albuterol MDI 2 puffs q 4 hrs prn.Monito r resp. status. Osteoporosis 15663287 M8 1.0 Continue cholecalci ferol 2000 IU qd, calcium 500 mg BID, and risedronat e 35 mg weeklyMoni tor as outpt. Gastroesop hageal reflux disease without esophagitis 235801103 K21.9 No current sxs.Contin ue pantoprazo le 40 mg qd.Monitor sxs. Hyperlipidemia 10020500 E78.49 Continue atorvastat in 40 mg qd.Monitor labs as outpt. Mixed anxi ety and depressive disorder 273513485 F41.8 Mood ok tonight.Co ntinue bupropion ER 150 mg qd, Buspar 5 mg qd, and trazodone 100 mg qhsMonitor mood.Psych consult prn. Impaired cognition 43787 6002 R41.89 Oriented today, but with frequent episodes of confusion. Continue supportive care, expect decline.HC P invokedMon itor mood and behaviors. Psych consult prn. Overactive urinary bladder 111369527 N32.81 Per pt. has been on Gemtesa in the past, would like to restart.Ge mtesa 75 mg qd.Monitor urinary function. Restless l egs syndrome 42905937 G25.81 With increased sxs of RLS.Will start requip 0.25 mg qhs.Monito r sxs. Dry eyes 973005011 H04.1 23 Will start natural tears q 2 hrs prn, may leave at bedside.Mo nitor sxs. [id number] TONY ALMARAZ [address] [place] [address] 10/13/2022 12:47:26 10/15/2022 12:27:09 Hematoma 305730182 M79.81 sent to ED for further eval as it is expanding [id number] TONY ALMARAZ [address] [place] [address] 10/17/2022 10:23:03 10/22/2022 16:06:33 Hematoma 214961963 M79.81 oxycodone 2.5 mg q6hr prn for 5 daysmonito r for healibng Recurrent falls 69677725 2 R29.6 PT OT eval and treatfall precaution sfrequent safety checks Hematoma o f right thigh 4123744233 5640734 S70.11XA resolvedav oid further falls Atrial fibrillation 4943 6004 I48.91 amiodarone 200 mg dailyeiliq uis 5 mg bidbisopro lol 2.5 mg daily Chronic ob structive pulmonary disease 43793915 J44.9 albuterol inhaler q4hr prnadvair 100/25 daily Congestive heart failure 72977256 I50.9 lasix 20 mg dailylosar miller 25 mg daily Osteoarthritis 295185886 M19.90 cholecalci ferol 2000 dailyrisen dronate 35 weekly Gastroesop hageal reflux disease without esophagitis 300298068 K21.9 CaCarb 500 bidprotoni x 40 mg daily Essential hypertension 71676078 I10 amlodipine 5 mg dailycloni dine 0.1 mg q12 hr Hyperlipidemia 27396273 E78.5 atorvastat in 40 mg daily Mixed anxi ety and depressive disorder 494506785 F41.8 bupropion er 150 mg dailybuspa r 5 mg dailytrazo done 100 mg hs Overactive urinary bladder 919585612 N32.81 Gemtesa 75 mg qd.Monitor urinary function. [id number] JUAN MANUEL MORALES NP [address] [address] 10/20/2022 12:38:53 10/22/2022 16:25:33 Hematoma 719957587 M79.81 oxycodone 2.5 mg q6hr prn for 5 daysmonito r for healing Recurrent falls 35185315 2 R29.6 PT OT eval and treatfall precaution sfrequent safety checks [id number] JUAN MANUEL MORALES NP [address] [address] 10/24/2022 10:45:27 10/28/2022 12:44:55 Hematoma 261752115 M79.81 oxycodone 2.5 mg q6hr prn for 5 daysmonito r for healing Impaired cognition 39262 6002 R41.89 Oriented intermitte ntly, but with frequent episodes of confusion. Continue supportive care, expect decline.HC P invokedMon itor mood and behaviors. Psych consult prn. [id number] JUAN MANUEL MORALES NP MARCIO DONG [address] [place] [address] [place] [address] 10/29/2022 13:57:22 10/31/2022 15:54:37 Hematoma 495246569 M79.81 monitor for healing Recurrent falls 16976665 2 R29.6 PT OT eval and treatfall precaution sfrequent safety checks Hematoma o f right thigh 5060837019 8276618 S70.11XA resolvedav oid further falls Atrial fibrillation 4943 6004 I48.91 amiodarone 200 mg dailyeiliq uis 5 mg bidbisopro lol 2.5 mg daily Chronic ob structive pulmonary disease 98962200 J44.9 albuterol inhaler q4hr prnadvair 100/25 daily Congestive heart failure 52064235 I50.9 lasix 20 mg dailylosar miller 25 mg daily Osteoarthritis 023186260 M19.90 cholecalci ferol 2000 dailyrisen dronate 35 weekly Gastroesop hageal reflux disease without esophagitis 162001257 K21.9 CaCarb 500 bidprotoni x 40 mg daily Essential hypertension 03141835 I10 amlodipine 5 mg dailycloni dine 0.1 mg q12 hr Hyperlipidemia 93444149 E78.5 atorvastat in 40 mg daily Mixed anxi ety and depressive disorder 502429436 F41.8 bupropion er 150 mg dailybuspa r 5 mg dailytrazo done 100 mg hs Overactive urinary bladder 110706377 N32.81 Gemtesa 75 mg qd.Monitor urinary function. [id number] MD MARCIO Cline [facility] [address] [place] [address] [place] [address] 01/28/2023 07:59:08 01/30/2023 15:30:48 Impaired cognition 192753249 R41.89 will monitor and support as neededI did not feel that I could invoke patient's HCP proxy today as she was quite appropriat e in her answers to my questions with even some insight. Chronic ob structive pulmonary disease 24054972 J41.0 Advair 250-50: one puff [id number] rol HFA: 2 puffs q4h prnwill monitor Atrial fibrillation 4943 6004 I48.0 apixaban 5 mg bidbisopro lol 2.5 mg dailyamiod arone 200 mg dailywill monitor Essential hypertension 27929784 I10 bisoprolol 2.5 mg dailyamlod ipine 5 mg dailyfuros emide 20 mg dailylosar miller 25 mg dailycloni dine 0.1 mg [id number] monitor Mixed anxi ety and depressive disorder 895559794 F41.8 buspirone 5 mg tidtrazodo ne 100 mg at hsbupropri on 100 mg dailyescit alopram 10 mg dailyhydro xyzine 10 mg q8h prn anxietywil l monitor Overactive urinary bladder 677407916 N32.81 vibegron 75 mg dailywill monitor Restless l egs syndrome 03243337 G25.81 ropinirole 0.25 mg dailywill monitor Gastroesop hageal reflux disease without esophagitis 604599591 K21.9 pantoprazo le 40 mg dailywill monitor Primary osteoporosis 276 945188 M81.0 risendrona te 25 mg weeklywill monitor Chronic sy stolic heart failure 471596896 I50.22 losartan 25 mg dailyfuros emide 20 mg dailybisop rolol 2.5 mg dailywill monitor [id number] TONY ALMARAZ [address] [address] 03/20/2023 16:32:09 03/27/2023 09:38:51 Overactive urinary bladder 513913189 N32.81 urology consult prnMonitor urinary function. Impaired cognition 00613 6002 R41.89 will monitor and support as needed Chronic ob structive pulmonary disease 82369574 J41.0 Advair 250-50: one puff q30qrncrhm rol HFA: 2 puffs q4h prnwill monitor Atrial fibrillation 4943 6004 I48.0 apixaban 5 mg bidbisopro lol 2.5 mg dailyamiod arone 200 mg dailywill monitor Essential hypertension 45029902 I10 bisoprolol 2.5 mg dailyamlod ipine 5 mg dailyfuros emide 20 mg dailylosar miller 25 mg dailycloni dine 0.1 mg [id number] monitor Mixed anxi ety and depressive disorder 121593408 F41.8 buspirone 5 mg tidtrazodo ne 100 mg at hsbupropri on 100 mg dailyescit alopram 10 mg dailyhydro xyzine 10 mg q8h prn anxietywil l monitor Restless l egs syndrome 77965699 G25.81 ropinirole 0.25 mg dailywill monitor Gastroesop hageal reflux disease without esophagitis 908556796 K21.9 pantoprazo le 40 mg dailywill monitor Primary osteoporosis 276 152078 M81.0 risendrona te 25 mg weeklywill monitor Chronic sy stolic heart failure 466894596 I50.22 losartan 25 mg dailyfuros emide 20 mg dailybisop rolol 2.5 mg dailywill monitor Recurrent falls 55784005 2 R29.6 PT OT eval and treatfall precaution sfrequent safety checks [id number] Sandra Morrison MD [address] [place] [address] 05/15/2023 17:56:32 05/19/2023 11:07:46 Fall 4673332 R29.6 Hx of fallsConti nue fall precaution s.Monitor for safety. Essential hypertension 13577720 I10 Good control.Co ntinue bisoprolol 2.5 mg qd, lasix 20 mg qd, losartan 25 mg qd. amlodipine 5 mg qd and clonidine 0.1 mg BID.Monito r BP and labs. Hematoma o f right thigh 0146708712 3619216 S70.11XD Healed.CBC stable. Impaired cognition 62927 6002 R41.89 Mild confusion today, but fairly oriented.C ontinue supportive care, expect decline.HC P invokedMon itor mood and behaviors. Psych consult prn. Congestive heart failure 32487666 I50.22 Continues to be euvolemic. Continue bisoprolol 2.5 mg qd, lasix 20 mg qd and losartan 25 mg qd.Monitor resp. status, fluid status, wts and labs. Atrial fibrillation 4943 6004 I48.0 Rate remains in good control on meds as above and amiodarone 200 mg qd.Continu e eliquis 5 mg BID for AC.Monitor HR and bleeding risk. Chronic ob structive pulmonary disease 49598613 J43.8 Continues at baseline.C ontinue Advair 100/25 mcg BID and albuterol MDI 2 puffs q 4 hrs prn.Monito r resp. status. Osteoporosis 35356548 M8 1.0 Continue cholecalci ferol 2000 IU qd, calcium 500 mg BID, and risedronat e 35 mg weeklyMoni tor as outpt. Gastroesop hageal reflux disease without esophagitis 689473168 K21.9 No current sxs.Contin ue pantoprazo le 40 mg qd.Monitor sxs. Hyperlipidemia 28139088 E78.49 Continue atorvastat in 40 mg qd.Monitor labs as outpt. Mixed anxi ety and depressive disorder 602189649 F41.8 Mood ok tonight.Co ntinue bupropion ER 100 mg qd, Buspar 5 mg TID, clonidine 0.1 m BID, and trazodone 100 mg qhsMonitor mood.Psych consult prn. Restless l egs syndrome 28292649 G25.81 Continue requip 0.25 mg qhs.Monito r sxs. Mixed urin laura incontinence 453043417 N39.46 Continue estring 2 mg q 3 months and estrace cream 2 gms 3x/wkMonit or urinary function.F /U with uro prn. Visual hallucinations 64 955894 R44.1 Psych consult for visual and auditory hallucinat ions.[place] pt. [id number] TONY ALMARAZ [address] [place] [address] [place] [address] 07/10/2023 12:52:00 07/21/2023 11:22:40 Overactive urinary bladder 389110542 N32.81 urology consult prnMonitor urinary function.d -mannose 500 mg daily uti preventati ve Impaired cognition 51555 6002 R41.89 will monitor and support as needed Chronic ob structive pulmonary disease 31481225 J41.0 Advair 250-50: one puff x75cfptgrk rol HFA: 2 puffs q4h prnwill monitor Atrial fibrillation 4943 6004 I48.0 apixaban 5 mg bidbisopro lol 2.5 mg dailyamiod arone 200 mg dailywill monitor Essential hypertension 55946616 I10 bisoprolol 2.5 mg dailyamlod ipine 5 mg dailyfuros emide 20 mg dailylosar miller 25 mg dailycloni dine 0.1 mg u91ydcuq monitor Mixed anxi ety and depressive disorder 644414632 F41.8 buspirone 5 mg tidtrazodo ne 100 mg at hsbupropri on 100 mg dailyescit alopram 10 mg dailyhydro xyzine 10 mg q8h prn anxietywil l monitor Restless l egs syndrome 73260216 G25.81 ropinirole 0.25 mg dailywill monitor Gastroesop hageal reflux disease without esophagitis 353190446 K21.9 pantoprazo le 40 mg dailywill monitor Primary osteoporosis 276 799970 M81.0 risendrona te 25 mg weeklywill monitor Chronic sy stolic heart failure 388363484 I50.22 losartan 25 mg dailyfuros emide 20 mg dailybisop rolol 2.5 mg dailywill monitor Recurrent falls 33280544 2 R29.6 PT OT eval and treatfall precaution sfrequent safety checks [id number] JUAN MANUEL MORALES NP [address] [address] 07/15/2023 12:09:17 07/21/2023 14:31:17 Leukocytosis 623728937 D72.829 UA C/Scxr [id number] Martina Vidalburn Hazel [address] [address] 08/28/2023 10:48:09 10/26/2023 15:56:34 Atrial fibrillation 13453255 I48.0 chronic, stable. RCcontinue eliquiscon tinue norvasccon tinue amiodarone monitor HR Chronic ob structive pulmonary disease 53150561 J41.0 chronic stablecont inue inhalersmo nitor for changes in respirator y status Congestive heart failure 91381656 I50.22 chronic, stablecont inue lasix 20mg dailymonit or BMP Essential hypertension 02007878 I10 chronic stablecont inue norvasc and losartanal so on lasix Hyperlipidemia 30554030 E78.49 continue atorvastat inmonitor lipids annually [id number] Jenni Kwong MD [address] [place] [address] 09/09/2023 08:10:55 09/15/2023 10:16:26 Impaired cognition 247107966 R41.89 will monitor and support as needed Mixed anxi ety and depressive disorder 088066873 F41.8 buspirone 5 mg tidtrazodo ne 100 mg at hsbupropri on 100 mg dailyescit alopram 10 mg dailyhydro xyzine 10 mg q8h prn anxietywil l monitor Atrial fibrillation 4943 6004 I48.0 apixaban 5 mg bidbisopro lol 2.5 mg dailyamiod arone 200 mg dailywill monitor Essential hypertension 67603076 I10 bisoprolol 2.5 mg dailyamlod ipine 5 mg dailyfuros emide 20 mg dailylosar miller 25 mg dailycloni dine 0.1 mg p84clffy monitor Hyperlipidemia 83557404 E78.49 atorvastat in 40 mg dailywill monitor Chronic ob structive pulmonary disease 34265256 J41.0 Advair 250-50: one puff h13sieukhs rol HFA: 2 puffs q4h prnwill monitor Gastroesop hageal reflux disease without esophagitis 767831579 K21.9 pantoprazo le 40 mg dailywill monitor Restless l egs syndrome 27443291 G25.81 ropinirole 0.25 mg dailywill monitor Cobalamin deficiency 190 175275 E53.8 B12 500 mcg dailywill monitor [id number] [facility] [address] [place] [address] 09/21/2023 11:12:35 09/23/2023 09:57:55 Acute dermatitis 80542164 L30.9 left upper facial near left eye [...] provide new make up brushes Impaired cognition 42120 6002 R41.89 will monitor and support as needed [id number] [facility] MARCIO DONG [address] [place] [address] [place] [address] 09/22/2023 15:18:31 09/24/2023 12:07:21 Impaired cognition 736321700 R41.89 will monitor and support as needed Pain of le ft knee region 3638029639 15282 M25.562 see hpiwill scheduled 975 mg tylenol TIDxray left knee 2 viewsconsi christiano PT/OT eval if imaging is negative for fx. [id number] [facility] [address] [place] [address] [place] [address] 10/13/2023 18:47:09 10/15/2023 17:16:34 Cough 67816640 R05.9 10/11: started mucinex 600 mg q [...] dayincreas e oral hydrationm onitor resp status [id number] [facility] [address] [place] [address] [place] [address] 10/29/2023 11:14:47 11/03/2023 12:16:03 Impaired cognition 724326158 R41.89 Continue supportive care, expect decline.HC P invokedMon itor mood and behaviors. Psych consult prn. Essential hypertension 57195211 I10 BP has been controlled with current medicatios .Continue bisoprolol 2.5 mg qd, lasix 20 mg qd, losartan 25 mg qd. amlodipine 5 mg qd and clonidine 0.1 mg BID.Monito r BP and labs. Congestive heart failure 63492556 I50.22 euvolemic. Continue bisoprolol 2.5 mg qd, lasix 20 mg qd and losartan 25 mg qd.Monitor resp. status, fluid status, wts and labs. Atrial fibrillation 4943 6004 I48.0 HR controlled continue amiodarone 200 mg qd.Continu e eliquis 5 mg BID for AC.Monitor HR and bleeding risk. Chronic ob structive pulmonary disease 56011604 J43.8 Continues at baseline.C ontinue Advair 100/25 mcg BID and albuterol MDI 2 puffs q 4 hrs prn.Monito r resp. status. Osteoporosis 21972049 M8 1.0 Continue cholecalci ferol 2000 IU qd, calcium 500 mg BID, and risedronat e 35 mg weeklyMoni tor as outpt. Gastroesop hageal reflux disease without esophagitis 257950615 K21.9 No current sxs.Contin ue pantoprazo le 40 mg qd.Monitor sxs. Hyperlipidemia 63319602 E78.49 Continue atorvastat in 40 mg qd.Monitor labs as outpt. Mixed anxi ety and depressive disorder 855019563 F41.8 Continue bupropion ER 100 mg qd, Buspar 5 mg TID, clonidine 0.1 m BID, and trazodone 100 mg qhs,lexapr o 10 mg daily and hydroxyzin e 10 mg qdMonitor mood.Psych consult prn. Restless l egs syndrome 20891919 G25.81 Continue requip 0.25 mg qhs.Monito r sxs. Mixed urin laura incontinence 500266579 N39.46 Continue estring 2 mg q 3 monthsMoni tor urinary function.F /U with uro prn. Tear of skin 625030927 T 14.8XXA LLE flap tear, approximat edcontinue to monitor healing. [id number] [facility] [address] [place] [address] 11/10/2023 12:24:35 11/23/2023 12:50:14 Pain of shoulder region 13499115 M25.519 right shoulder pain+ discomfort with abduction, suspect OAnursing to give now dose tylenol and continue prnPT/OT eval and treatwill monitor. [id number] [facility] [address] [place] [address] 11/25/2023 11:56:55 11/27/2023 12:02:47 Candidiasis of vagina 83062585 B37.31 vaginal redness appears yeastPatie nt has no discomfort start diflucan 150 mg Q72 for 3 dosesPt is incontinen t, nursing encourage to check for incontinen t episode and change Q2.keep skin clean and drymonitor for resolution [id number] MD MARCIO Ramirez IKER [address] [place] [address] rd [place] [address] 01/15/2024 21:46:22 02/02/2024 07:55:44 Impaired cognition 128320312 R41.89 Continues at baseline.C ontinue escitalopr am 10 mg qd, bupropion ER 100 mg qd, Buspar 5 mg TID, clonidine 0.1 m BID, trazodone 100 mg qhs, and hydroxyzin e 10 mg qd.Continu e supportive care, expect decline.HC P invokedMon itor mood and behaviors. Psych follows. Visual hallucinations 64 812773 R44.1 Psych follows, no mention of this in recent notes.Aida tor Essential hypertension 99927626 I10 Continues in good control.Co ntinue bisoprolol 2.5 mg qd, lasix 20 mg qd, losartan 25 mg qd. amlodipine 5 mg qd and clonidine 0.1 mg BID.Monito r BP and labs. Congestive heart failure 43606399 I50.22 Continues to be euvolemic. Continue bisoprolol 2.5 mg qd, lasix 20 mg qd and losartan 25 mg qd.Monitor resp. status, fluid status, wts and labs. Atrial fibrillation 4943 6004 I48.0 Rate in good control on meds as above and amiodarone 200 mg qd.Continu e eliquis 5 mg BID for AC.Monitor HR and bleeding risk. Chronic ob structive pulmonary disease 44736114 J43.8 Continues at baseline.C ontinue Advair 100/25 mcg BID and albuterol MDI 2 puffs q 4 hrs prn.Mucine x 600 mg BID added for cough in 10/2023.Mon itor resp. status. Osteoporosis 41892611 M8 1.0 Continue cholecalci ferol 2000 IU qd, calcium 500 mg BID, and risedronat e 35 mg weeklyMoni tor as outpt. Gastroesop hageal reflux disease without esophagitis 168085280 K21.9 No current sxs.Contin ue pantoprazo le 40 mg qd.Monitor sxs. Hyperlipidemia 03906250 E78.49 Continue atorvastat in 40 mg qd.Monitor labs as outpt. Mixed anxi ety and depressive disorder 733751554 F41.8 As above. Restless l egs syndrome 95494884 G25.81 She mentions this tonight.Co ntinue requip 0.25 mg qhs.Consid er increase to 0.5 mg qhs.Monito r sxs. Mixed urin laura incontinence 446464943 N39.46 Continue estring 2 mg q 3 months.Mon itor urinary function.F /U with uro prn. Cough 12251131 R05.9 Back to baseline.M onitor [id number] [facility] [address] [address] 02/24/2024 09:53:07 02/25/2024 10:07:37 Bacterial conjunctivitis 068045155 H10.9 see hpibilater al erythema, dry yellowish discharge noted on lashes and corners or eyesstart ofloxacin 0.3 % 2 gtts QID for 5 daysmonito r for resolution patient encouraged to avoid rubbing eyes, apply cool compress for comfort. [id number] [facility] [address] [address] 03/02/2024 10:16:42 03/04/2024 10:24:18 Bacterial conjunctivitis 864730998 H10.9 ofloxacin eye gtts completeds clera white, no drainage or discharge, denies didcomfort .bilateral erythema, dry yellowish discharge noted on lashes and corners or eyespatien t encouraged to avoid rubbing eyes, apply cool compress for comfort. Mixed anxi ety and depressive disorder 635067041 F41.8 followed by [facility] seen on 02/28 with recommenda tion for GDR she is currently on 4 psychotrop ic medication 03/02: decrease bupropion ER 100 mg qd to 75 mgcheck EKG for QTcContinu e , Buspar 5 mg TID, clonidine 0.1 m BID, and trazodone 100 mg qhs,lexapr o 10 mg daily and hydroxyzin e 10 mg qdMonitor mood.Psych prn [id number] [facility] [address] [address] 03/07/2024 15:12:42 03/09/2024 09:31:11 Recurrent falls 098555832 R29.6 see hpino acute injuries or reports of discomfort .nursing to continue post fall protocol. [id number] [facility] [address] [facility] [place] [address] 03/09/2024 10:14:06 03/15/2024 13:07:32 Impaired cognition 796271308 R41.89 Continue supportive care, expect decline.HC P invokedMon itor mood and behaviors. Psych consult prn. Essential hypertension 93586451 I10 Continue bisoprolol 2.5 mg qd, lasix 20 mg qd, losartan 25 mg qd. amlodipine 5 mg qd and clonidine 0.1 mg BID.Monito r BP and labs. Congestive heart failure 97508308 I50.22 euvolemic. she has been stableCont inue bisoprolol 2.5 mg qd, lasix 20 mg qd and losartan 25 mg qd.Monitor resp. status, fluid status, wts and labs. Atrial fibrillation 4943 6004 I48.0 denies any chest pain or other associated sx,continu e amiodarone 200 mg qd.Continu e eliquis 5 mg BID for AC.Monitor HR and bleeding risk. Chronic ob structive pulmonary disease 47266018 J43.8 Continues at baseline.C ontinue Advair 100/25 mcg BID and albuterol MDI 2 puffs q 4 hrs prn.Monito r resp. status. Osteoporosis 98444396 M8 1.0 Continue cholecalci ferol 2000 IU qd, calcium 500 mg BID, and risedronat e 35 mg weeklyMoni tor as outpt. Gastroesop hageal reflux disease without esophagitis 488775058 K21.9 tolerating a regular diet, no reported GI upsetConti nue pantoprazo le 40 mg qd.Monitor sxs. Hyperlipidemia 47487435 E78.49 Continue atorvastat in 40 mg qd.Monitor labs as outpt. Mixed anxi ety and depressive disorder 954776407 F41.8 Continue bupropion ER 100 mg qd, Buspar 5 mg TID, clonidine 0.1 m BID, and trazodone 100 mg qhs,lexapr o 10 mg daily and hydroxyzin e 10 mg qdMonitor mood.Psych consult prn. Restless l egs syndrome 36080580 G25.81 Continue requip 0.25 mg qhs.Monito r sxs. Mixed urin laura incontinence 916765353 N39.46 Continue estring 2 mg q 3 monthsMoni tor urinary function.F /U with uro prn. Bacterial conjunctivitis 433215470 H10.9 resolvedof loxacin eye gtts completeds stacy villalobos, no drainage or discharge, denies discomfort . Recurrent falls 83073601 2 R29.6 s/p fall 03/05no acute injuries or reports of discomfort .nursing to continue post fall protocol. [id number] [facility] [address] [address] 04/04/2024 13:13:21 04/05/2024 13:32:19 Viral conjunctivitis 84000609 B30.9 left eyeleft sclera erythema, lower lid swelling( aggravated by rubbing) with clear drainage.n o itchiness or discomfort start azelastine gtt BID for 14 day.monito r for resolution patient encouraged to avoid rubbing eyes, apply cool compress for comfort. [id number] [facility] [address] [place] [address] 04/07/2024 11:04:20 04/08/2024 12:46:40 Viral conjunctivitis 71524146 B30.9 left eye /stablelef t sclera erythema, lower lid swelling( aggravated by rubbing) with clear drainage.n o itchiness or discomfort start azelastine gtt BID for 14 day.- have not received med from pharmacy-m onitor for resolution patient encouraged to avoid rubbing eyes, apply cool compress for comfort. Acute urin laura tract infection 153040701 N39.0 see hpiwill start bactrim 400mg Q12 for 7 dayadd probiotic BIDencoura ged to have increased water consumptio n to flush out toxins Hypokalemia 01986224 E87 .6 subtle at 3.1will replete with kcl 20 meq times 2 daysmonito r for associated sx (weakness, cramping, twitching) patient to notify nursing staff with sx [id number] [facility] e [address] [facility] [place] [address] 04/28/2024 11:26:55 04/29/2024 11:42:54 Impaired cognition 675640897 R41.89 stableCont inue supportive care, expect decline.HC P invokedMon itor mood and behaviors. Psych consult prn. Essential hypertension 91375999 I10 Continue bisoprolol 2.5 mg qd, lasix 20 mg qd, losartan 25 mg qd. amlodipine 5 mg qd and clonidine 0.1 mg BID.Monito r BP and labs. Congestive heart failure 71419313 I50.22 euvolemic. she has been stableCont inue bisoprolol 2.5 mg qd, lasix 20 mg qd and losartan 25 mg qd.Monitor resp. status, fluid status, wts and labs. Atrial fibrillation 4943 6004 I48.0 denies any chest pain or other associated sx,continu e amiodarone 200 mg qd.Continu e eliquis 5 mg BID for AC.Monitor HR and bleeding risk. Chronic ob structive pulmonary disease 41853955 J43.8 Continues at baseline.C ontinue Advair 100/25 mcg BID and albuterol MDI 2 puffs q 4 hrs prn.Monito r resp. status. Osteoporosis 87913801 M8 1.0 Continue cholecalci ferol 2000 IU qd, calcium 500 mg BID, and risedronat e 35 mg weeklyMoni tor as outpt. Gastroesop hageal reflux disease without esophagitis 947411296 K21.9 tolerating a regular diet, no reported GI upsetConti nue pantoprazo le 40 mg qd.Monitor sxs. Hyperlipidemia 18691603 E78.49 Continue atorvastat in 40 mg qd.Monitor labs as outpt. Mixed anxi ety and depressive disorder 332853659 F41.8 Continue bupropion ER 100 mg qd, Buspar 5 mg TID, clonidine 0.1 m BID, and trazodone 100 mg qhs,lexapr o 10 mg daily and hydroxyzin e 10 mg qdMonitor mood.Psych consult prn. Restless l egs syndrome 81708076 G25.81 Continue requip 0.25 mg qhs.Monito r sxs. Mixed urin laura incontinence 958913937 N39.46 Continue estring 2 mg q 3 monthsMoni tor urinary function.F /U with uro prn. Acute urin laura tract infection 080917918 N39.0 completed abxencoura ged to have increased water consumptio n to flush out toxins Hypokalemia 85047988 E87 .6 subtle at 3.1will replete with kcl 20 meq times 2 daysmonito r for associated sx (weakness, cramping, twitching) patient to notify nursing staff with sx [id number] [facility] [address] [address] 05/09/2024 11:39:53 05/10/2024 13:50:01 Pain of shoulder region 46590809 M25.519 see HPInon traumatic right shoulder painGive now dose for tramadol 50 mg then tramadol 50 mg Q6 prnschedul e tylenol 1 g TIDxray 3 viewscan apply ice for pain or heat for comfort [id number] [facility] [address] [address] 05/19/2024 09:40:12 05/23/2024 12:46:45 Pain of shoulder region 87870748 M25.519 non traumatic right shoulder pain-xray negative for any acute findings.c ontinue tramadol 50 mg Q6 prnschedul e tylenol 1 g TID [id number] [facility] [address] [address] 06/16/2024 08:41:53 06/22/2024 12:46:48 Diplopia 70083527 H53.2 intermitte nt12/4 opthamolog y exam showed esophoria at distance , divergence insufficie ncy can be neurologic al neurology consult recommende d, otherwise follow up in 1 year. Impaired cognition 49748 6002 R41.89 Continue supportive care, expect decline.HC P invokedcon tinue to monitor mood and behaviors with recent med changes Essential hypertension 55447782 I10 Continue bisoprolol 2.5 mg qd, lasix 20 mg qd, losartan 25 mg qd. amlodipine 5 mg qd and clonidine 0.1 mg BID.Monito r BP and labs. Congestive heart failure 60481760 I50.22 euvolemic. she has been stableCont inue [...] bleeding risk. Chronic ob structive pulmonary disease 04823191 J43.8 Continue Advair 100/25 mcg BID and albuterol MDI 2 puffs q 4 hrs prn.Monito r resp. status. Osteoporosis 79043629 M8 1.0 Continue cholecalci ferol 2000 IU qd, calcium 500 mg BID, and risedronat e 35 mg weeklyMoni tor as outpt. Gastroesop hageal reflux disease without esophagitis 055365134 K21.9 tolerating a regular diet, no reported GI upsetpanto prazole discontinu ed due to QTc Hyperlipidemia 17487018 E78.49 Continue atorvastat in 40 mg qd.Monitor labs as outpt. Mixed anxi ety and depressive disorder 121797093 F41.8 nursing reports daily anxiety, currently on [...] of hydroxyzin e Restless l egs syndrome 13797043 G25.81 Continue requip 0.25 mg qhs.Monito r sxs. Mixed urin laura incontinence 552194833 N39.46 Continue estring 2 mg q 3 monthsMoni tor urinary function.F /U with uro prn. [id number] [facility] [address] [place] [address] 06/20/2024 10:53:20 06/21/2024 14:19:17 Diplopia 20465854 H53.2 intermitte nt12/4 opthamolog y exam showed esophoria at distance , divergence insufficie ncy can be neurologic al neurology consult recommende d, otherwise follow up in 1 year.she will discuss with family Mixed anxi ety and depressive disorder 504708098 F41.8 nursing reports daily anxiety, currently on [...] and bleeding risk. Prolonged QT interval 11 9840443 I45.81 HX afib.QTc 467GDR - amiodarone and protonix decreased, hydroxyzin e stoppedden ies any associated sx/ no dizziness, palpitatio n etc.repeat ekg in 1 week [id number] [facility] [address] [place] [address] [place] [address] 07/01/2024 08:22:16 07/04/2024 15:48:50 Respiratory tract congestion and cough 173102677 R05.9 non productive chest xray complete:T he lung johansen are clear without mass, infiltrate , congestion , or effusion. SARS-CoV-2 555104194 U07 .1 07/01 positive teststart Molnupirav ir 800 mg BID for 5 dayscontin ue supportive therapy with oxygen prnisolati on precaution [id number] [facility] [address] [place] [address] [place] [address] 07/04/2024 09:57:50 07/05/2024 09:55:44 Respiratory tract congestion and cough 200280786 R05.9 no cough appreciate d on exam SARS-CoV-2 150852670 U07 .1 07/01 positive testcopnti gregoria Dela Cruzupirav ir 800 mg BID for 5 dayscontin ue supportive therapy with oxygen prnisolati on precaution [id number] [facility] [address] [facility] [place] [address] 10/09/2024 10:55:30 10/13/2024 16:07:53 Mixed anxiety and depressive disorder 642891970 F41.8 stablecont inue escitalopr am, BusPIRone and trazodone Impaired cognition 23352 6002 R41.89 Continue supportive care, expect decline.HC P invokedcon tinue to monitor mood and behaviors with recent med changes Essential hypertension 13991265 I10 stableCont inue bisoprolol 2.5 mg qd, lasix 20 mg qd, losartan 25 mg qd. amlodipine 5 mg qd and clonidine 0.1 mg BID.Monito r BP and labs. Congestive heart failure 20947049 I50.22 euvolemic. stableCont inue bisoprolol 2.5 mg qd, lasix 20 mg qd and losartan 25 mg qd.Monitor resp. status, fluid status, wts and labs. Atrial fibrillation 4943 6004 I48.0 stablerate controlled cont amiodarone to 100 mg qdContinue eliquis 5 mg BID for AC.Monitor HR and bleeding risk. Chronic ob structive pulmonary disease 65901865 J43.8 stableCont inue Advair 100/25 mcg BID and albuterol MDI 2 puffs q 4 hrs prn.Monito r resp. status. Gastroesop hageal reflux disease without esophagitis 974241497 K21.9 stabletole rating a regular diet, no reported GI upsetpanto prazole discontinu ed due to QTc Hyperlipidemia 10768039 E78.49 Continue atorvastat in 40 mg qd.Monitor labs as outpt. [id number] Abhi Erickson MD [facility] [address] [place] [address] [place] [address] 10/12/2024 11:19:17 10/14/2024 08:28:33 Impaired cognition 066207222 R41.89 baseline impaired cognitionH CP invokedmon itor for behaviorsp sych eval prn Pruritic rash 40939333 L 28.2 eschar x 2 present left wristdoes not appear infectedsu rrounding pruritisat arax 25 mg q 8 prnmonitor for effect [id number] MD MARCIO Ayers [address] [place] [address] [place] [address] 10/24/2024 12:55:25 10/26/2024 11:39:25 Thrombocytosis 1499851 D75.839 D75.838 96698 acute thrombocyt osisrepeat stat cbc to recheck plt levelif remains elevated will starthydre a 1000 mg qd and request heme consult Leukocytosis 461708422 D 72.829 see above Impaired cognition 69487 6002 R41.89 baseline impaired cognitionH CP invokedcoo rdinate with HCP as needed for further workup [id number] DARVIN MARIE CNP [address] [place] [address] 10/26/2024 12:10:11 11/01/2024 08:15:11 Thrombocytosis 6634502 D75.839 D75.838 54758 acute thrombocyt osisimprov ing with hydrea 1000 mg daily.repe at stat cbc to recheck plt level next week.if remains elevated will startconti nue hydrea 1000 mg dialy and will request heme consult Leukocytosis 644916820 D 72.829 improving. see above Impaired cognition 65209 6002 R41.89 baseline impaired cognitionH CP invokedcoo rdinate with HCP as needed for further workup [id number] DARVIN MARIE CNP [address] [place] [address] 11/16/2024 10:25:17 11/18/2024 12:49:51 Thrombocytosis 4336910 D75.839 D75.838 54960 acute thrombocyt osisimprov ing with hydrea 1000 mg daily.Plt 300 on 11/14/24.elida l d/c hydrean 1000 mg and monitor CBC on Thursday, .R equest heme consult Leukocytosis 247338493 D 72.829 improving. see above Impaired cognition 87329 6002 R41.89 baseline impaired cognitionH CP invokedcoo rdinate with HCP as needed for further workup Mixed anxi ety and depressive disorder 095288067 F41.8 stablecont inue current psychotrop ic medication Essential hypertension 37615853 I10 stableCont inue bisoprolol 2.5 mg qd, lasix 20 mg qd, losartan 25 mg qd. amlodipine 5 mg qd and clonidine 0.1 mg BID.Monito r BP and labs. Congestive heart failure 10960860 I50.22 euvolemic. stableCont inue bisoprolol 2.5 mg qd, lasix 20 mg qd and losartan 25 mg qd.Monitor resp. status, fluid status, wts and labs. Atrial fibrillation 4943 6004 I48.0 stablerate controlled cont amiodarone to 100 mg qdContinue eliquis 5 mg BID for AC.Monitor HR and bleeding risk. Chronic ob structive pulmonary disease 98573287 J43.8 stableCont inue Advair 100/25 mcg BID and albuterol MDI 2 puffs q 4 hrs prn.Monito r resp. status. Gastroesop hageal reflux disease without esophagitis 671785893 K21.9 stabletole rating a regular diet, no reported GI upsetpanto prazole discontinu ed due to QTc Hyperlipidemia 49493577 E78.49 Continue atorvastat in 40 mg qd.Monitor labs as outpt. [id number] [facility] [address] [place] [address] 01/18/2025 05:50:29 01/20/2025 13:05:29 Mixed anxiety and depressive disorder 822526558 F41.8 stablecont inue escitalopr am, BusPIRone and trazodone Impaired cognition 96430 6002 R41.89 Continue supportive care, expect decline.HC P invokedcon tinue to monitor mood and behaviors with recent med changes Essential hypertension 14503270 I10 stableCont inue bisoprolol 2.5 mg qd, lasix 20 mg qd, losartan 25 mg qd. amlodipine 5 mg qd and clonidine 0.1 mg BID.Monito r BP and labs. Congestive heart failure 96832846 I50.22 euvolemic. stableCont inue bisoprolol 2.5 mg qd, lasix 20 mg qd and losartan 25 mg qd.Monitor resp. status, fluid status, wts and labs. Atrial fibrillation 4943 6004 I48.0 stablerate controlled cont amiodarone to 100 mg qdContinue eliquis 5 mg BID for AC.Monitor HR and bleeding risk. Chronic ob structive pulmonary disease 54587883 J43.8 stableCont inue Advair 100/25 mcg BID and albuterol MDI 2 puffs q 4 hrs prn.Monito r resp. status. Gastroesop hageal reflux disease without esophagitis 103685660 K21.9 stabletole rating a regular diet, no reported GI upsetpanto prazole discontinu ed due to QTc Hyperlipidemia 71550301 E78.49 Continue atorvastat in 40 mg qd.Monitor labs as outpt. Health Concerns Section Related Observation LastModified by Organization Detai ls LastModified Time None Recorded Concern Status LastModified by Organization Details LastModified Time None Recorded Advance Directives Directive Y: Payers Insurance Date Sequence Insurance Name Policy Number Policy Burdick Covered Member ID Burdick Member ID Guarantor Name 01/18/2025 2 () Hillary Naila [id number] Hillary Llano 01/18/2025 1 [place]IC[place] [employer] Hillary Pena Llano [id number] Hillary Llano 10/17/2023 2 UNSPECIFIED REMIT PAYOR Hillary Yoo Notes Date Note Type Note Provider Name and Address Organization Details Recorded Time 10/12/2024 text/html Patient is a 74 yo female resident asked to al for MD visit with pruritis left hand. Patient with dementia at baseline, brother in room helps with hx. Patient sitting in wheelchair in NAD. Abhi Erickson MD [address] [place] [address], [address], [place], [address], [facility] 10/12/2024 11:58:18 10/24/2024 text/html Patient is a 74 yo female resident seen for acute rounding. CBC was ordered showing significant elevated of ziu=3532 and mild elevation of WBC. Patient with baseline dementia lying in bed in NAD Abhi Erickson MD [address] [facility], [address], [place], [address], [facility] [facility] 10/24/2024 13:06:12 10/26/2024 text/html Patient is a 74 yo female resident seen for acute rounding. CBC was ordered showing significant elevated of [id number] and mild elevation of WBC on 10/24. Pt started hydrea 1000 mg daily. Repeat lab result reviewed today. Patient with baseline dementia lying in bed in [facility] DARVIN MARIE CNP [address], [address], [place], [address], [facility] 10/26/2024 12:27:33 11/16/2024 text/html Patient is a 74 yo female LTC resident seen for annual exam.She has been here after multiple falls and a resulting large right thigh hematoma, needing I&D and drains. Also was COVID+ and had a sub-acute left femur fx. She completed rehab and remained too weak to be able to return to [facility] and so is now LTC. Pt had labs, [id number] and mild elevation of WBC on 10/24. [...] with baseline dementia lying in bed in [facility] DARVIN MARIE CNP [address], [address], [place], [address], [facility] 11/16/2024 11:44:39 01/18/2025 text/html ROS as noted in the HPI Hillary is a 74 yr old LTC resident seen for routine rounding. She has been at her baseline in [facility]. no changes in appetite or elimination, there are no acute nursing concerns. REGI COLÓN [address], [address], [place], [address], [facility] 01/19/2025 18:55:56 OBGyn Episode No OBEpisode recorded.
--- OUTSIDE RECORDS SUMMARY | 2025-06-22 06:21 | XMS_ITS | Data Portability ---
Author Organization [place] [facility] Address [address] [place] [id number] Care Team Providers Care Clerical Manager Name Role Phone ALONSO ANDINO Primary Care [...] here from [place] to move into an [facility]. She is not a great historian. [...] James agree and recc emeregent eval at [facility] PE - no s/s DVT< [...] the past. 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 Expect called to [facility] w/ very thorough reasons for escalation adn I was thanked for this level of detail. I did pass along pt PCP names and specialist names I had from [place]. Pt is on agreement and verbalizes understanding [...] diogr am No observ ation record ed. [email or web address] Not Available 10:31:15 Result Notes None recorded. Procedures Surgical History Date Name Laterality Status Provider Name and Address Organization Details Recorded Time Medication Review completed SAMSON Hadley [address], [place], [address], [place] [facility] 05/27/2022 10:20:35 ECG Interpretation - completed SAMSON Hadley [address], [place], [address], [place] [facility] 05/27/2022 10:23:27 Cataract Surgery completed SAMSON Avila [address], [place], [address], [place] [facility] 05/27/2022 09:22:29 bypass of stomach completed SAMSON Landers [address], [place], [address], [place] [facility] 05/27/2022 09:22:41 Imaging [...] Former Smoker SAMSON Hadley [address], [place], [address], [place] [facility] 05/27/2022 09:22:59 When Did [...] ICD10 Code Diagnosis IMO Codes Diagnosis Note [id number] SAMSON Eli [facility] [address] [place] [address] 05/27/2022 08:28:33 05/28/2022 15:07:31 Tachycardia 1162827 R00.0 Community acquired pneumonia [id number] J18.9 Irregular heart beat 361 192646 R00.8 Health Concerns Section Related Observation LastModified by Organization Detai ls LastModified Time None Recorded Concern Status LastModified by Organization Details LastModified Time None Recorded Advance Directives Directive None Recorded Payers Insurance Date Sequence Insurance Name Policy Number Policy Burdick Covered Member ID Burdick Member ID Guarantor Name 05/27/2022 1 *SELF PAY* Hillary Socorro [id number] Hillary Naila 06/02/2022 1 MEDICARE B-DE: [employer] Hillary Pena Socorro [id number] Hillary Socorro 06/02/2022 2 () Hillary Socorro [id number] Hillary Socorro Notes Date Note Type Note Provider Name [...] here from [place] to move into an [facility]. She is not a great historian. [...] sxs today. SAMSON Hadley [address], [place], [address], [place] [facility] 05/27/2022 10:31:24 OBGyn Episode No OBEpisode recorded.
--- OUTSIDE RECORDS SUMMARY | 2025-06-22 06:21 | XMS_ITS | Clinical Summary ---
Author Organization [facility] Address [address] [place] [address] Phone Care Team Providers Care Makeup Artist Name Role Phone Unavailable Primary Care Provider [...] complete this topic Insurance Medicare Spina Bifida ([id number]) Medicare Spina Bifida ([id number])
[2025-06-22 06:33] LABS: Hematocrit 37.8 % (37.0-47.0); Hemoglobin 11.8 g/dl (12.0-16.0); Imm Gran Abs Auto 0.04 X10*3/uL (0.00-0.03); Imm Gran Pct Auto 0.8 % (0.0-0.4); Lymphocytes Absolute Auto 1.7 X10*3/uL (1.2-4.9); Mean Corpuscular HGB Conc 31.2 g/dl (31.0-35.0); Mean Corpuscular Hemoglobin 25.9 pg (27.0-33.0); Mean Corpuscular Volume 82.9 fL (80.0-98.0); NRBC Abs Auto 0.000 X10*3/uL (0.0-0.012); NRBC Pct Auto 0.0 /100WBC (0.0-0.2); Platelet Count 591 X10*3/uL (160-400); Red Blood Count 4.56 X10*6/uL (4.20-5.50); White Blood Count 5.2 X10*3/uL (4.8-10.8)
[2025-06-22 07:00] LABS: Alanine Aminotransferase 24 U/L (0-31); Albumin Level 3.2 g/dL (3.5-5.0); Alkaline Phosphatase 71 U/L (39-117); Anion Gap 12 (12-20); Aspartate Amino Transferase 30 U/L (5-31); Blood Urea Nitrogen 12 mg/dL (9-16); Calcium 8.3 mg/dL (8.4-10.2); Carbon Dioxide 21 mmol/L (22-29); Chloride 113 mmol/L (96-108); Cholesterol 94 mg/dL (<200); Estimated Glomerular Filt Rate > 60; HDL Cholesterol 38 mg/dL (>40); Potassium 3.6 mmol/L (3.3-5.1); Sodium 142 mmol/L (135-145); Total Protein 5.4 g/dL (6.5-8.0); Triglycerides 44 mg/dL (<150)
[2025-06-22 07:16] LABS: Thyroid Stimulating Hormone 0.64 uIU/mL (0.32-4.0)
== END 2025-06-22 06:18 ==
LOC: HO.MMNH3L 06:17
PROVIDERS: Visit Provider Physician Assistant Medical
DX: J44.9 Chronic obstructive pulmonary disease, unspecified (principal); I50.9 Heart failure, unspecified; I48.91 Unspecified atrial fibrillation
CPT/HCPCS: 36415; 80053; 80061; 84443; 85025

== ENCOUNTER 2025-06-26 11:30 | Outpatient (REF) | payer MEDICARE, MEDICAID, SELFPAY ==
[2025-06-26 16:28] LABS: CDiff Gene PCR NEGATIVE (Negative)
--- OUTSIDE RECORDS SUMMARY | 2025-06-26 21:58 | XMS_ITS | Data Portability ---
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 Name Role Phone MARCIO DONG 3RD FLOOR OTHER Assessment Encounter Date Assessment Date Assessment LastModified by Organization Details LastModified Time 10/26/2024 10/26/202410/24 wbc=12.2 hb=13.3 tsi=7818 bun=11 cre=0.69 10/26 wbc 9, hgb 12.1, Plt 1017 Not available 10/26/2024 12:27:13 11/16/2024 11/16/202410/24 wbc=12.2 hb=13.3 aur=9004 bun=11 cre=0.69 10/26 wbc 9, hgb 12.1, [...] Address Organization Details Recorded Time Recurrent falls 808682824 Active 2022 JUAN MANUEL MORALES NP [address], [place], [address], [facility] [employer] 11:13:43 Osteoarthr itis 413932541 Active 2022 JUAN MANUEL MORALES NP [address], [address], [place], [address], [facility] 3 11:13:48 Chronic obstructiv e pulmonary disease 90088248 Active 2022 JUAN MANUEL MORALES NP [address], [address], [place], [address], [facility] 3 11:13:52 Gastroesop hageal reflux disease without esophagiti s 249024264 Active 2022 JUAN MANUEL MORALES NP [address], [address], [place], [address], [facility] 3 11:13:58 Congestive heart failure 66885575 Active 2022 JUAN MANUEL MORALES NP [address], [address], [place], [address], [facility] 3 11:14:03 Atrial fibrillati on 81982628 Active 2022 JUAN MANUEL MORALES NP [address], [address], [place], [address], [facility] 3 11:14:08 Hematoma of right thigh 383006155644 31789 Active 2022 JUAN MANUEL MORALES NP [address], [address], [place], [address], [facility] 3 11:14:21 Essential hypertensi on 97745511 Active 2022 JUAN MANUEL MORALES NP [address], [address], [place], [address], [facility] 3 11:40:46 Hyperlipid emia 57076862 Active 2022 JUAN MANUEL MORALES NP [address], [address], [place], [address], [facility] 3 11:41:07 Mixed anxiety and depressive disorder 115661387 Active 2022 JUAN MANUEL MORALES NP [address], [address], [place], [address], [place] [facility] 3 11:41:48 Impaired cognition 668200230 Active 2022 Sandra Morrison MD [address], [address], [place], [address], [facility] 3 01:04:56 Overactive urinary bladder 392340448 Active 2022 Sandra Morrison MD [address], [address], [place], [address], [facility] 3 01:13:05 Dry eyes 277833649 Active 2022 Sandra Morrison MD [address], [place], [address], [facility] 3 01:14:09 Hematoma 396343447 Active 2022 left buttock JUAN MANUEL MORALES, TONY [address], [address], [place], [address], [facility] 3 13:03:34 Leukocytos is 285656688 Active 2023 JUAN MANUEL MORALES NP [address], [address], [place], [address], [facility] 4 12:21:55 Restless legs syndrome 36676869 Active 2023 Sandra Morrison MD [address], [address], [place], [address], [facility] 4 18:41:39 Mixed urinary incontinen ce 631909998 Active 2023 Sandra Morrison MD [address], [address], [place], [address], [facility] 4 18:42:46 Bacterial conjunctiv itis 302491360 Active 2023 REGI COLÓN [address], [place], [address], [facility] 4 17:01:03 Thrombocyt osis 5349677 Active 2024 Abhi Erickson MD [address], [place], [address], [facility] 13:01:15 Notes:Some problems listed i n Document: #[id number] could not be added to this patient's [...] 167.64 cm 140/80 mm[Hg] Abhi Erickson MD [address] [place] [address], [place], [address], [facility] 10/24/2024 12:57:01 Date Recorded Body height Provider Name an d Address Organization Details Last Updated DateTime 01/18/2025 167.64 cm REGI COLÓN [address] [place] [address], [place], [address], [facility] 01/19/2025 18:53:56 Social History Question Answer Notes LastModified by Organizat ion Details LastModified Time Tobacco Smoking Status Former Smoker JUAN MANUEL MORALES NP [address] [place] [address], [place], [address], [facility] 08/08/2022 11:11:20 Do You Have An Advance Directive? Yes Information not available 08/11/2022 What Is Your Code Status? Full Code Information not available 08/11/2022 Where Do You Live? [facility], Previously Lived Alone, No Stairs Information not available 05/15/2023 Legal Guardian? 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 Yes Information not available 08/12/2022 What Was [...] PF 05/22/2022 completed Maryam hernandez [place] - [facility] 07/30/2023 12:41:28 Past Encounters Encounter ID Performer Location Encounter Start Date Encounter Closed Date Diagnosis/Indication Diagnosis SNOMED-CT Code Diagnosis ICD10 Code Diagnosis IMO Codes Diagnosis Note [id number] TONY ALMARAZ [address] [facility] [place] [address] 08/08/2022 09:43:58 08/12/2022 10:33:59 Recurrent falls 565810752 R29.6 PT OT eval and treatfall precaution sfrequent safety checks Hematoma o f right thigh 8613191316 3146509 S70.11XA change dressing per ordersmoni tor for increased swellingav oid further falls Atrial fibrillation 4943 6004 I48.91 amiodarone 200 mg dailyeiliq uis 5 mg bidbisopro lol 2.5 mg daily Chronic ob structive pulmonary disease 55885361 J44.9 albuterol inhaler q4hr prnadvair 100/25 daily Congestive heart failure 36115458 I50.9 lasix 20 mg dailylosar miller 25 mg daily Osteoarthritis 269590660 M19.90 cholecalci ferol 2000 dailyrisen dronate 35 weekly Gastroesop hageal reflux disease without esophagitis 265559256 K21.9 CaCarb 500 bidprotoni x 40 mg daily Essential hypertension 59602105 I10 amlodipine 5 mg dailycloni dine 0.1 mg q12 hr Hyperlipidemia 35660255 E78.5 atorvastat in 40 mg daily Mixed anxi ety and depressive disorder 059930967 F41.8 bupropion er 150 mg dailytrazo done 100 mg hs JUAN MANUEL MORALES NP [facility] [address] [place] [address] 08/11/2022 14:11:22 08/13/2022 13:57:19 Hematoma of right thigh 0495628009 0192536 S70.11XA change dressing per ordersmoni tor for increased swellingav oid further falls Congestive heart failure 30765288 I50.9 lasix 20 mg dailylosar miller 25 mg daily [id number] MD MARCIO Ramirez [address] [place] [address] 08/12/2022 17:25:40 08/18/2022 16:13:47 Hematoma of right thigh 6494216390 0329365 S70.11XD With minimal drainage from drains.Lik bruno will get removed at appt tomorrow.M onitor thigh for healing.Mo nitor CBC. Congestive heart failure 68843363 I50.22 Appears euvolemic. Continue bisoprolol 2.5 mg qd, lasix 20 mg qd and losartan 25 mg qd.Monitor resp. status, fluid status, wts and labs. Recurrent falls 74323282 2 R29.6 Very deconditio demetrius.Needs PT/OT for strengthen ing, balance, gait training, safety and function.C ontinue fall precaution s.Monitor for safety. Atrial fibrillation 4943 6004 I48.0 Rate in good control on meds as above and amiodarone 200 mg qd.Continu e eliquis 5 mg BID for AC.Monitor HR and bleeding risk. Chronic ob structive pulmonary disease 70519490 J43.8 At baseline.C ontinue Advair 100/25 mcg BID and albuterol MDI 2 puffs q 4 hrs prn.Monito r resp. status. Gastroesop hageal reflux disease without esophagitis 489238345 K21.9 No current sxs.Contin ue pantoprazo le 40 mg qd.Monitor sxs. Essential hypertension 74460502 I10 Systolic has been high periodical ly, likely due to pain.No change in meds for now.Contin ue meds as above and amlodipine 5 mg qd and clonidine 0.1 mg BID.Monito r BP and labs. Hyperlipidemia 03802987 E78.49 Continue atorvastat in 40 mg qd.Monitor labs as outpt. Mixed anxi ety and depressive disorder 763529737 F41.8 Mood ok tonight.Co ntinue bupropion ER 150 mg qd and trazodone 100 mg qhsMonitor mood.Psych consult prn. Osteoporosis 86937095 M8 1.0 Continue cholecalci ferol 2000 IU qd, calcium 500 mg BID, and risedronat e 35 mg weeklyMoni tor as outpt. [id number] TONY ALMARAZ [address] [place] [address] 08/14/2022 11:52:29 08/18/2022 16:23:58 Chronic obstructive pulmonary disease 20748231 J44.9 albuterol inhaler q4hr prnadvair 100/25 daily Congestive heart failure 71822788 I50.9 lasix 20 mg dailylosar miller 25 mg daily [id number] JUAN MANUEL MORALES NP [address] [address] 08/20/2022 13:24:34 08/22/2022 13:09:35 Chronic obstructive pulmonary disease 13326113 J43.8 albuterol inhaler q4hr prnadvair 100/25 daily Mixed anxi ety and depressive disorder 055140168 F41.8 bupropion er 150 mg dailytrazo done 100 mg hsmonitor and chart any changes in mood or behaviorsp sych prn [id number] JUAN MANUEL MORALES NP [facility] [address] [place] [address] 08/27/2022 10:50:59 09/02/2022 10:27:22 Hematoma of right thigh 8029452958 4651597 S70.11XD change dressing per ordersmoni tor for increased swellingav oid further fallsWBAT Chronic ob structive pulmonary disease 81782918 J43.8 albuterol inhaler q4hr prnadvair 100/25 daily Recurrent falls 85956058 2 R29.6 PT OT eval and treatfall precaution sfrequent safety checks [id number] JUAN MANUEL TONY MORALES [facility] [address] [place] [address] 09/03/2022 10:52:54 09/05/2022 13:45:58 Chronic obstructive pulmonary disease 90634995 J43.8 albuterol inhaler q4hr prnadvair 100/25 daily Recurrent falls 73641954 2 R29.6 PT OT eval and treatfall precaution sfrequent safety checks [id number] JUAN MANUEL TONY MORALES [address] [address] 09/05/2022 10:51:26 09/09/2022 07:59:39 Recurrent falls 794509367 R29.6 PT OT eval and treatfall precaution sfrequent safety checks Hematoma o f right thigh 6997858862 4038601 S70.11XA [facility] for increased swellingav oid further falls Atrial fibrillation 4943 6004 I48.91 amiodarone 200 mg dailyeiliq uis 5 mg bidbisopro lol 2.5 mg daily Chronic ob structive pulmonary disease 83916064 J44.9 albuterol inhaler q4hr prnadvair 100/25 daily Congestive heart failure 15091612 I50.9 lasix 20 mg dailylosar miller 25 mg daily Osteoarthritis 462856605 M19.90 cholecalci ferol 2000 dailyrisen dronate 35 weekly Gastroesop hageal reflux disease without esophagitis 974138511 K21.9 CaCarb 500 bidprotoni x 40 mg daily Essential hypertension 88272397 I10 amlodipine 5 mg dailycloni dine 0.1 mg q12 hr Hyperlipidemia 54000488 E78.5 atorvastat in 40 mg daily Mixed anxi ety and depressive disorder 893699231 F41.8 bupropion er 150 mg dailytrazo done 100 mg hs [id number] Sandra Morrison MD [facility] [address] [place] [address] 10/07/2022 18:29:02 10/10/2022 15:21:01 Abrasion and/or friction burn of back without infection 27466156 S30.810A With open abrasion.W ill use local care and protection with dressings and monitor sxs. Fall W18.39XA Pt. reminded to call for help when she wants to get up.Continu es to need PT/OT for strengthen ing, balance, gait training, safety and function.C ontinue fall precaution s.Monitor for safety. Essential hypertension 66192953 I10 Systolic was very high this AM, not rechecked since fall. Overall good recently.C ontinue bisoprolol 2.5 mg qd, lasix 20 mg qd, losartan 25 mg qd. amlodipine 5 mg qd and clonidine 0.1 mg BID.Monito r BP and labs. [id number] Sandra Morrison MD [address] [place] [address] 10/09/2022 13:55:48 10/14/2022 11:00:12 Abrasion and/or friction burn of back without infection 99872892 S30.810A Abrasion healing.Co ntinue local care and protection with dressings and monitor sxs. fall W18.39XA Fall 2 days ago.Contin ues to need PT/OT for strengthen ing, balance, gait training, safety and function.C ontinue fall precaution s.Monitor for safety. Essential hypertension 28076919 I10 Continues with intermitte nt elevated SBP, [...] and labs. Hematoma o f right thigh 2461157312 4129199 S70.11XD Healed.CBC stable. Congestive heart failure 09010624 I50.22 Continues to be euvolemic. Continue bisoprolol 2.5 mg qd, lasix 20 mg qd and losartan 25 mg qd.Monitor resp. status, fluid status, wts and labs. Atrial fibrillation 4943 6004 I48.0 Rate remains in good control on meds as above and amiodarone 200 mg qd.Continu e eliquis 5 mg BID for AC.Monitor HR and bleeding risk. Chronic ob structive pulmonary disease 16369142 J43.8 Continues at baseline.C ontinue Advair 100/25 mcg BID and albuterol MDI 2 puffs q 4 hrs prn.Monito r resp. status. Osteoporosis 12267249 M8 1.0 Continue cholecalci ferol 2000 IU qd, calcium 500 mg BID, and risedronat e 35 mg weeklyMoni tor as outpt. Gastroesop hageal reflux disease without esophagitis 239674650 K21.9 No current sxs.Contin ue pantoprazo le 40 mg qd.Monitor sxs. Hyperlipidemia 04657005 E78.49 Continue atorvastat in 40 mg qd.Monitor labs as outpt. Mixed anxi ety and depressive disorder 684522088 F41.8 Mood ok tonight.Co ntinue bupropion ER 150 mg qd, Buspar 5 mg qd, and trazodone 100 mg qhsMonitor mood.Psych consult prn. Impaired cognition 77536 6002 R41.89 Oriented today, but with frequent episodes of confusion. Continue supportive care, expect decline.HC P invokedMon itor mood and behaviors. Psych consult prn. Overactive urinary bladder 370672187 N32.81 Per pt. has been on Gemtesa in the past, would like to restart.Ge mtesa 75 mg qd.Monitor urinary function. Restless l egs syndrome 33729447 G25.81 With increased sxs of RLS.Will start requip 0.25 mg qhs.Monito r sxs. Dry eyes 064875864 H04.1 23 Will start natural tears q 2 hrs prn, may leave at bedside.Mo nitor sxs. [id number] TONY ALMARAZ [address] [place] [address] 10/13/2022 12:47:26 10/15/2022 12:27:09 Hematoma 447787451 M79.81 sent to ED for further eval as it is expanding [id number] TONY ALMARAZ [address] [place] [address] 10/17/2022 10:23:03 10/22/2022 16:06:33 Hematoma 101283758 M79.81 oxycodone 2.5 mg q6hr prn for 5 daysmonito r for healibng Recurrent falls 15720852 2 R29.6 PT OT eval and treatfall precaution sfrequent safety checks Hematoma o f right thigh 6889910703 8695117 S70.11XA resolvedav oid further falls Atrial fibrillation 4943 6004 I48.91 amiodarone 200 mg dailyeiliq uis 5 mg bidbisopro lol 2.5 mg daily Chronic ob structive pulmonary disease 58814791 J44.9 albuterol inhaler q4hr prnadvair 100/25 daily Congestive heart failure 59677305 I50.9 lasix 20 mg dailylosar miller 25 mg daily Osteoarthritis 625522006 M19.90 cholecalci ferol 2000 dailyrisen dronate 35 weekly Gastroesop hageal reflux disease without esophagitis 761016713 K21.9 CaCarb 500 bidprotoni x 40 mg daily Essential hypertension 76693100 I10 amlodipine 5 mg dailycloni dine 0.1 mg q12 hr Hyperlipidemia 56789109 E78.5 atorvastat in 40 mg daily Mixed anxi ety and depressive disorder 702661458 F41.8 bupropion er 150 mg dailybuspa r 5 mg dailytrazo done 100 mg hs Overactive urinary bladder 678533573 N32.81 Gemtesa 75 mg qd.Monitor urinary function. [id number] JUAN MANUEL MORALES NP [address] [address] 10/20/2022 12:38:53 10/22/2022 16:25:33 Hematoma 062666024 M79.81 oxycodone 2.5 mg q6hr prn for 5 daysmonito r for healing Recurrent falls 16684217 2 R29.6 PT OT eval and treatfall precaution sfrequent safety checks [id number] JUAN MANUEL MORALES NP [address] [address] 10/24/2022 10:45:27 10/28/2022 12:44:55 Hematoma 519923746 M79.81 oxycodone 2.5 mg q6hr prn for 5 daysmonito r for healing Impaired cognition 92678 6002 R41.89 Oriented intermitte ntly, but with frequent episodes of confusion. Continue supportive care, expect decline.HC P invokedMon itor mood and behaviors. Psych consult prn. [id number] JUAN MANUEL MORALES NP MARCIO DONG [address] [place] [address] [place] [address] 10/29/2022 13:57:22 10/31/2022 15:54:37 Hematoma 399466695 M79.81 monitor for healing Recurrent falls 95863082 2 R29.6 PT OT eval and treatfall precaution sfrequent safety checks Hematoma o f right thigh 0123946165 4515706 S70.11XA resolvedav oid further falls Atrial fibrillation 4943 6004 I48.91 amiodarone 200 mg dailyeiliq uis 5 mg bidbisopro lol 2.5 mg daily Chronic ob structive pulmonary disease 71326455 J44.9 albuterol inhaler q4hr prnadvair 100/25 daily Congestive heart failure 69416383 I50.9 lasix 20 mg dailylosar miller 25 mg daily Osteoarthritis 120393495 M19.90 cholecalci ferol 2000 dailyrisen dronate 35 weekly Gastroesop hageal reflux disease without esophagitis 123206712 K21.9 CaCarb 500 bidprotoni x 40 mg daily Essential hypertension 82384410 I10 amlodipine 5 mg dailycloni dine 0.1 mg q12 hr Hyperlipidemia 87809833 E78.5 atorvastat in 40 mg daily Mixed anxi ety and depressive disorder 619076385 F41.8 bupropion er 150 mg dailybuspa r 5 mg dailytrazo done 100 mg hs Overactive urinary bladder 843076699 N32.81 Gemtesa 75 mg qd.Monitor urinary function. [id number] MD MARCIO Cline [facility] [address] [place] [address] [place] [address] 01/28/2023 07:59:08 01/30/2023 15:30:48 Impaired cognition 129805859 R41.89 will monitor and support as neededI did not feel that I could invoke patient's HCP proxy today as she was quite appropriat e in her answers to my questions with even some insight. Chronic ob structive pulmonary disease 80489163 J41.0 Advair 250-50: one puff [id number] rol HFA: 2 puffs q4h prnwill monitor Atrial fibrillation 4943 6004 I48.0 apixaban 5 mg bidbisopro lol 2.5 mg dailyamiod arone 200 mg dailywill monitor Essential hypertension 02509296 I10 bisoprolol 2.5 mg dailyamlod ipine 5 mg dailyfuros emide 20 mg dailylosar miller 25 mg dailycloni dine 0.1 mg [id number] monitor Mixed anxi ety and depressive disorder 087737796 F41.8 buspirone 5 mg tidtrazodo ne 100 mg at hsbupropri on 100 mg dailyescit alopram 10 mg dailyhydro xyzine 10 mg q8h prn anxietywil l monitor Overactive urinary bladder 927962282 N32.81 vibegron 75 mg dailywill monitor Restless l egs syndrome 93787529 G25.81 ropinirole 0.25 mg dailywill monitor Gastroesop hageal reflux disease without esophagitis 294037956 K21.9 pantoprazo le 40 mg dailywill monitor Primary osteoporosis 276 586562 M81.0 risendrona te 25 mg weeklywill monitor Chronic sy stolic heart failure 632425800 I50.22 losartan 25 mg dailyfuros emide 20 mg dailybisop rolol 2.5 mg dailywill monitor [id number] TONY ALMARAZ [address] [address] 03/20/2023 16:32:09 03/27/2023 09:38:51 Overactive urinary bladder 126739768 N32.81 urology consult prnMonitor urinary function. Impaired cognition 90607 6002 R41.89 will monitor and support as needed Chronic ob structive pulmonary disease 52766852 J41.0 Advair 250-50: one puff [id number] rol HFA: 2 puffs q4h prnwill monitor Atrial fibrillation 4943 6004 I48.0 apixaban 5 mg bidbisopro lol 2.5 mg dailyamiod arone 200 mg dailywill monitor Essential hypertension 08763448 I10 bisoprolol 2.5 mg dailyamlod ipine 5 mg dailyfuros emide 20 mg dailylosar miller 25 mg dailycloni dine 0.1 mg [id number] monitor Mixed anxi ety and depressive disorder 540367606 F41.8 buspirone 5 mg tidtrazodo ne 100 mg at hsbupropri on 100 mg dailyescit alopram 10 mg dailyhydro xyzine 10 mg q8h prn anxietywil l monitor Restless l egs syndrome 63823279 G25.81 ropinirole 0.25 mg dailywill monitor Gastroesop hageal reflux disease without esophagitis 275926851 K21.9 pantoprazo le 40 mg dailywill monitor Primary osteoporosis 276 623459 M81.0 risendrona te 25 mg weeklywill monitor Chronic sy stolic heart failure 811470529 I50.22 losartan 25 mg dailyfuros emide 20 mg dailybisop rolol 2.5 mg dailywill monitor Recurrent falls 53385475 2 R29.6 PT OT eval and treatfall precaution sfrequent safety checks [id number] Sandra Morrison MD [address] [place] [address] 05/15/2023 17:56:32 05/19/2023 11:07:46 Fall 1066906 R29.6 Hx of fallsConti nue fall precaution s.Monitor for safety. Essential hypertension 44252833 I10 Good control.Co ntinue bisoprolol 2.5 mg qd, lasix 20 mg qd, losartan 25 mg qd. amlodipine 5 mg qd and clonidine 0.1 mg BID.Monito r BP and labs. Hematoma o f right thigh 1278855441 1084865 S70.11XD Healed.CBC stable. Impaired cognition 79974 6002 R41.89 Mild confusion today, but fairly oriented.C ontinue supportive care, expect decline.HC P invokedMon itor mood and behaviors. Psych consult prn. Congestive heart failure 14562923 I50.22 Continues to be euvolemic. Continue bisoprolol 2.5 mg qd, lasix 20 mg qd and losartan 25 mg qd.Monitor resp. status, fluid status, wts and labs. Atrial fibrillation 4943 6004 I48.0 Rate remains in good control on meds as above and amiodarone 200 mg qd.Continu e eliquis 5 mg BID for AC.Monitor HR and bleeding risk. Chronic ob structive pulmonary disease 85680464 J43.8 Continues at baseline.C ontinue Advair 100/25 mcg BID and albuterol MDI 2 puffs q 4 hrs prn.Monito r resp. status. Osteoporosis 04070741 M8 1.0 Continue cholecalci ferol 2000 IU qd, calcium 500 mg BID, and risedronat e 35 mg weeklyMoni tor as outpt. Gastroesop hageal reflux disease without esophagitis 669026990 K21.9 No current sxs.Contin ue pantoprazo le 40 mg qd.Monitor sxs. Hyperlipidemia 53888162 E78.49 Continue atorvastat in 40 mg qd.Monitor labs as outpt. Mixed anxi ety and depressive disorder 471301997 F41.8 Mood ok tonight.Co ntinue bupropion ER 100 mg qd, Buspar 5 mg TID, clonidine 0.1 m BID, and trazodone 100 mg qhsMonitor mood.Psych consult prn. Restless l egs syndrome 79868956 G25.81 Continue requip 0.25 mg qhs.Monito r sxs. Mixed urin laura incontinence 688163032 N39.46 Continue estring 2 mg q 3 months and estrace cream 2 gms 3x/wkMonit or urinary function.F /U with uro prn. Visual hallucinations 64 261608 R44.1 Psych consult for visual and auditory hallucinat ions.[place]othe ring to pt. [id number] TONY ALMARAZ [address] [place] [address] [place] [address] 07/10/2023 12:52:00 07/21/2023 11:22:40 Overactive urinary bladder 320909181 N32.81 urology consult prnMonitor urinary function.d -mannose 500 mg daily uti preventati ve Impaired cognition 49371 6002 R41.89 will monitor and support as needed Chronic ob structive pulmonary disease 69329683 J41.0 Advair 250-50: one puff [id number] rol HFA: 2 puffs q4h prnwill monitor Atrial fibrillation 4943 6004 I48.0 apixaban 5 mg bidbisopro lol 2.5 mg dailyamiod arone 200 mg dailywill monitor Essential hypertension 36830418 I10 bisoprolol 2.5 mg dailyamlod ipine 5 mg dailyfuros emide 20 mg dailylosar miller 25 mg dailycloni dine 0.1 mg [id number] monitor Mixed anxi ety and depressive disorder 505880442 F41.8 buspirone 5 mg tidtrazodo ne 100 mg at hsbupropri on 100 mg dailyescit alopram 10 mg dailyhydro xyzine 10 mg q8h prn anxietywil l monitor Restless l egs syndrome 19390734 G25.81 ropinirole 0.25 mg dailywill monitor Gastroesop hageal reflux disease without esophagitis 420908075 K21.9 pantoprazo le 40 mg dailywill monitor Primary osteoporosis 276 497983 M81.0 risendrona te 25 mg weeklywill monitor Chronic sy stolic heart failure 745363036 I50.22 losartan 25 mg dailyfuros emide 20 mg dailybisop rolol 2.5 mg dailywill monitor Recurrent falls 69217083 2 R29.6 PT OT eval and treatfall precaution sfrequent safety checks [id number] JUAN MANUEL MORALES NP [address] [address] 07/15/2023 12:09:17 07/21/2023 14:31:17 Leukocytosis 307224506 D72.829 UA C/Scxr [id number] Martina Vidalburn Hazel [address] [address] 08/28/2023 10:48:09 10/26/2023 15:56:34 Atrial fibrillation 41828122 I48.0 chronic, stable. RCcontinue eliquiscon tinue norvasccon tinue amiodarone monitor HR Chronic ob structive pulmonary disease 05024432 J41.0 chronic stablecont inue inhalersmo nitor for changes in respirator y status Congestive heart failure 29446108 I50.22 chronic, stablecont inue lasix 20mg dailymonit or BMP Essential hypertension 56630585 I10 chronic stablecont inue norvasc and losartanal so on lasix Hyperlipidemia 55121454 E78.49 continue atorvastat inmonitor lipids annually [id number] Jenni Kwong MD [address] [place] [address] 09/09/2023 08:10:55 09/15/2023 10:16:26 Impaired cognition 372251541 R41.89 will monitor and support as needed Mixed anxi ety and depressive disorder 069028379 F41.8 buspirone 5 mg tidtrazodo ne 100 mg at hsbupropri on 100 mg dailyescit alopram 10 mg dailyhydro xyzine 10 mg q8h prn anxietywil l monitor Atrial fibrillation 4943 6004 I48.0 apixaban 5 mg bidbisopro lol 2.5 mg dailyamiod arone 200 mg dailywill monitor Essential hypertension 43193638 I10 bisoprolol 2.5 mg dailyamlod ipine 5 mg dailyfuros emide 20 mg dailylosar miller 25 mg dailycloni dine 0.1 mg [id number] monitor Hyperlipidemia 06626515 E78.49 atorvastat in 40 mg dailywill monitor Chronic ob structive pulmonary disease 11526520 J41.0 Advair 250-50: one puff [id number] rol HFA: 2 puffs q4h prnwill monitor Gastroesop hageal reflux disease without esophagitis 648855867 K21.9 pantoprazo le 40 mg dailywill monitor Restless l egs syndrome 44459419 G25.81 ropinirole 0.25 mg dailywill monitor Cobalamin deficiency 190 207784 E53.8 B12 500 mcg dailywill monitor [id number] [facility] [address] [place] [id number] 09/21/2023 11:12:35 09/23/2023 09:57:55 Acute dermatitis 94533030 L30.9 left upper facial near left eye [...] provide new make up brushes Impaired cognition 44911 6002 R41.89 will monitor and support as needed [id number] [facility] MARCIO DONG [address] [place] [address] [place] [id number] 09/22/2023 15:18:31 09/24/2023 12:07:21 Impaired cognition 736368473 R41.89 will monitor and support as needed Pain of le ft knee region 6027298320 75092 M25.562 see hpiwill scheduled 975 mg tylenol TIDxray left knee 2 viewsconsi christiano PT/OT eval if imaging is negative for fx. [id number] [facility] [address] [place] [address] [place] [id number] 10/13/2023 18:47:09 10/15/2023 17:16:34 Cough 92292805 R05.9 10/11: started mucinex 600 mg q [...] dayincreas e oral hydrationm onitor resp status [id number] [facility] [address] [place] [address] [place] [id number] 10/29/2023 11:14:47 11/03/2023 12:16:03 Impaired cognition 373060767 R41.89 Continue supportive care, expect decline.HC P invokedMon itor mood and behaviors. Psych consult prn. Essential hypertension 58869598 I10 BP has been controlled with current medicatios .Continue bisoprolol 2.5 mg qd, lasix 20 mg qd, losartan 25 mg qd. amlodipine 5 mg qd and clonidine 0.1 mg BID.Monito r BP and labs. Congestive heart failure 48868019 I50.22 euvolemic. Continue bisoprolol 2.5 mg qd, lasix 20 mg qd and losartan 25 mg qd.Monitor resp. status, fluid status, wts and labs. Atrial fibrillation 4943 6004 I48.0 HR controlled continue amiodarone 200 mg qd.Continu e eliquis 5 mg BID for AC.Monitor HR and bleeding risk. Chronic ob structive pulmonary disease 25861096 J43.8 Continues at baseline.C ontinue Advair 100/25 mcg BID and albuterol MDI 2 puffs q 4 hrs prn.Monito r resp. status. Osteoporosis 45375144 M8 1.0 Continue cholecalci ferol 2000 IU qd, calcium 500 mg BID, and risedronat e 35 mg weeklyMoni tor as outpt. Gastroesop hageal reflux disease without esophagitis 213920704 K21.9 No current sxs.Contin ue pantoprazo le 40 mg qd.Monitor sxs. Hyperlipidemia 45866807 E78.49 Continue atorvastat in 40 mg qd.Monitor labs as outpt. Mixed anxi ety and depressive disorder 128324160 F41.8 Continue bupropion ER 100 mg qd, Buspar 5 mg TID, clonidine 0.1 m BID, and trazodone 100 mg qhs,lexapr o 10 mg daily and hydroxyzin e 10 mg qdMonitor mood.Psych consult prn. Restless l egs syndrome 79790810 G25.81 Continue requip 0.25 mg qhs.Monito r sxs. Mixed urin laura incontinence 447386558 N39.46 Continue estring 2 mg q 3 monthsMoni tor urinary function.F /U with uro prn. Tear of skin 179454266 T 14.8XXA LLE flap tear, approximat edcontinue to monitor healing. [id number] [facility] [address] [place] [id number] 11/10/2023 12:24:35 11/23/2023 12:50:14 Pain of shoulder region 92800883 M25.519 right shoulder pain+ discomfort with abduction, suspect OAnursing to give now dose tylenol and continue prnPT/OT eval and treatwill monitor. [id number] [facility] [address] [place] [id number] 11/25/2023 11:56:55 11/27/2023 12:02:47 Candidiasis of vagina 38677313 B37.31 vaginal redness appears yeastPatie nt has no discomfort start diflucan 150 mg Q72 for 3 dosesPt is incontinen t, nursing encourage to check for incontinen t episode and change Q2.keep skin clean and drymonitor for resolution [id number] MD MARCIO Ramirez [facility] [address] [place] [address] rd [place] [id number] 01/15/2024 21:46:22 02/02/2024 07:55:44 Impaired cognition 343452759 R41.89 Continues at baseline.C ontinue escitalopr am 10 mg qd, bupropion ER 100 mg qd, Buspar 5 mg TID, clonidine 0.1 m BID, trazodone 100 mg qhs, and hydroxyzin e 10 mg qd.Continu e supportive care, expect decline.HC P invokedMon itor mood and behaviors. Psych follows. Visual hallucinations 64 083555 R44.1 Psych follows, no mention of this in recent notes.Aida tor Essential hypertension 58716963 I10 Continues in good control.Co ntinue bisoprolol 2.5 mg qd, lasix 20 mg qd, losartan 25 mg qd. amlodipine 5 mg qd and clonidine 0.1 mg BID.Monito r BP and labs. Congestive heart failure 10714890 I50.22 Continues to be euvolemic. Continue bisoprolol 2.5 mg qd, lasix 20 mg qd and losartan 25 mg qd.Monitor resp. status, fluid status, wts and labs. Atrial fibrillation 4943 6004 I48.0 Rate in good control on meds as above and amiodarone 200 mg qd.Continu e eliquis 5 mg BID for AC.Monitor HR and bleeding risk. Chronic ob structive pulmonary disease 47629483 J43.8 Continues at baseline.C ontinue Advair 100/25 mcg BID and albuterol MDI 2 puffs q 4 hrs prn.Mucine x 600 mg BID added for cough in 10/2023.Mon itor resp. status. Osteoporosis 63511407 M8 1.0 Continue cholecalci ferol 2000 IU qd, calcium 500 mg BID, and risedronat e 35 mg weeklyMoni tor as outpt. Gastroesop hageal reflux disease without esophagitis 406826357 K21.9 No current sxs.Contin ue pantoprazo le 40 mg qd.Monitor sxs. Hyperlipidemia 00670939 E78.49 Continue atorvastat in 40 mg qd.Monitor labs as outpt. Mixed anxi ety and depressive disorder 618704751 F41.8 As above. Restless l egs syndrome 73295787 G25.81 She mentions this tonight.Co ntinue requip 0.25 mg qhs.Consid er increase to 0.5 mg qhs.Monito r sxs. Mixed urin laura incontinence 371828531 N39.46 Continue estring 2 mg q 3 months.Mon itor urinary function.F /U with uro prn. Cough 07705542 R05.9 Back to baseline.M onitor [id number] [facility] [address] [id number] 02/24/2024 09:53:07 02/25/2024 10:07:37 Bacterial conjunctivitis 998060625 H10.9 see hpibilater al erythema, dry yellowish discharge noted on lashes and corners or eyesstart ofloxacin 0.3 % 2 gtts QID for 5 daysmonito r for resolution patient encouraged to avoid rubbing eyes, apply cool compress for comfort. [id number] [facility] [address] [id number] 03/02/2024 10:16:42 03/04/2024 10:24:18 Bacterial conjunctivitis 684384985 H10.9 ofloxacin eye gtts completeds clera white, no drainage or discharge, denies didcomfort .bilateral erythema, dry yellowish discharge noted on lashes and corners or eyespatien t encouraged to avoid rubbing eyes, apply cool compress for comfort. Mixed anxi ety and depressive disorder 717113679 F41.8 followed by [facility] seen on 02/28 with recommenda tion for GDR she is currently on 4 psychotrop ic medication 03/02: decrease bupropion ER 100 mg qd to 75 mgcheck EKG for QTcContinu e , Buspar 5 mg TID, clonidine 0.1 m BID, and trazodone 100 mg qhs,lexapr o 10 mg daily and hydroxyzin e 10 mg qdMonitor mood.Psych prn [id number] [facility] [address] [address] 03/07/2024 15:12:42 03/09/2024 09:31:11 Recurrent falls 593514944 R29.6 see hpino acute injuries or reports of discomfort .nursing to continue post fall protocol. [id number] [facility] [address] [facility] [place] [address] 03/09/2024 10:14:06 03/15/2024 13:07:32 Impaired cognition 803219236 R41.89 Continue supportive care, expect decline.HC P invokedMon itor mood and behaviors. Psych consult prn. Essential hypertension 21123871 I10 Continue bisoprolol 2.5 mg qd, lasix 20 mg qd, losartan 25 mg qd. amlodipine 5 mg qd and clonidine 0.1 mg BID.Monito r BP and labs. Congestive heart failure 12119222 I50.22 euvolemic. she has been stableCont inue bisoprolol 2.5 mg qd, lasix 20 mg qd and losartan 25 mg qd.Monitor resp. status, fluid status, wts and labs. Atrial fibrillation 4943 6004 I48.0 denies any chest pain or other associated sx,continu e amiodarone 200 mg qd.Continu e eliquis 5 mg BID for AC.Monitor HR and bleeding risk. Chronic ob structive pulmonary disease 90466731 J43.8 Continues at baseline.C ontinue Advair 100/25 mcg BID and albuterol MDI 2 puffs q 4 hrs prn.Monito r resp. status. Osteoporosis 04347684 M8 1.0 Continue cholecalci ferol 2000 IU qd, calcium 500 mg BID, and risedronat e 35 mg weeklyMoni tor as outpt. Gastroesop hageal reflux disease without esophagitis 746067090 K21.9 tolerating a regular diet, no reported GI upsetConti nue pantoprazo le 40 mg qd.Monitor sxs. Hyperlipidemia 70767971 E78.49 Continue atorvastat in 40 mg qd.Monitor labs as outpt. Mixed anxi ety and depressive disorder 279488691 F41.8 Continue bupropion ER 100 mg qd, Buspar 5 mg TID, clonidine 0.1 m BID, and trazodone 100 mg qhs,lexapr o 10 mg daily and hydroxyzin e 10 mg qdMonitor mood.Psych consult prn. Restless l egs syndrome 88238741 G25.81 Continue requip 0.25 mg qhs.Monito r sxs. Mixed urin laura incontinence 188509660 N39.46 Continue estring 2 mg q 3 monthsMoni tor urinary function.F /U with uro prn. Bacterial conjunctivitis 720274849 H10.9 resolvedof loxacin eye gtts completeds stacy villalobos, no drainage or discharge, denies discomfort . Recurrent falls 11574194 2 R29.6 s/p fall 03/05no acute injuries or reports of discomfort .nursing to continue post fall protocol. [id number] [facility] [address] [id number] 04/04/2024 13:13:21 04/05/2024 13:32:19 Viral conjunctivitis 14485598 B30.9 left eyeleft sclera erythema, lower lid swelling( aggravated by rubbing) with clear drainage.n o itchiness or discomfort start azelastine gtt BID for 14 day.monito r for resolution patient encouraged to avoid rubbing eyes, apply cool compress for comfort. [id number] [facility] [address] [place] [id number] 04/07/2024 11:04:20 04/08/2024 12:46:40 Viral conjunctivitis 22458754 B30.9 left eye /stablelef t sclera erythema, lower lid swelling( aggravated by rubbing) with clear drainage.n o itchiness or discomfort start azelastine gtt BID for 14 day.- have not received med from pharmacy-m onitor for resolution patient encouraged to avoid rubbing eyes, apply cool compress for comfort. Acute urin laura tract infection 745795405 N39.0 see hpiwill start bactrim 400mg Q12 for 7 dayadd probiotic BIDencoura ged to have increased water consumptio n to flush out toxins Hypokalemia 21554811 E87 .6 subtle at 3.1will replete with kcl 20 meq times 2 daysmonito r for associated sx (weakness, cramping, twitching) patient to notify nursing staff with sx [id number] [facility] e [address] [facility] [place] [address] 04/28/2024 11:26:55 04/29/2024 11:42:54 Impaired cognition 176869676 R41.89 stableCont inue supportive care, expect decline.HC P invokedMon itor mood and behaviors. Psych consult prn. Essential hypertension 32618541 I10 Continue bisoprolol 2.5 mg qd, lasix 20 mg qd, losartan 25 mg qd. amlodipine 5 mg qd and clonidine 0.1 mg BID.Monito r BP and labs. Congestive heart failure 41086635 I50.22 euvolemic. she has been stableCont inue bisoprolol 2.5 mg qd, lasix 20 mg qd and losartan 25 mg qd.Monitor resp. status, fluid status, wts and labs. Atrial fibrillation 4943 6004 I48.0 denies any chest pain or other associated sx,continu e amiodarone 200 mg qd.Continu e eliquis 5 mg BID for AC.Monitor HR and bleeding risk. Chronic ob structive pulmonary disease 62143173 J43.8 Continues at baseline.C ontinue Advair 100/25 mcg BID and albuterol MDI 2 puffs q 4 hrs prn.Monito r resp. status. Osteoporosis 37165515 M8 1.0 Continue cholecalci ferol 2000 IU qd, calcium 500 mg BID, and risedronat e 35 mg weeklyMoni tor as outpt. Gastroesop hageal reflux disease without esophagitis 501845512 K21.9 tolerating a regular diet, no reported GI upsetConti nue pantoprazo le 40 mg qd.Monitor sxs. Hyperlipidemia 37002747 E78.49 Continue atorvastat in 40 mg qd.Monitor labs as outpt. Mixed anxi ety and depressive disorder 824845214 F41.8 Continue bupropion ER 100 mg qd, Buspar 5 mg TID, clonidine 0.1 m BID, and trazodone 100 mg qhs,lexapr o 10 mg daily and hydroxyzin e 10 mg qdMonitor mood.Psych consult prn. Restless l egs syndrome 42865459 G25.81 Continue requip 0.25 mg qhs.Monito r sxs. Mixed urin laura incontinence 656550924 N39.46 Continue estring 2 mg q 3 monthsMoni tor urinary function.F /U with uro prn. Acute urin laura tract infection 502728381 N39.0 completed abxencoura ged to have increased water consumptio n to flush out toxins Hypokalemia 27280074 E87 .6 subtle at 3.1will replete with kcl 20 meq times 2 daysmonito r for associated sx (weakness, cramping, twitching) patient to notify nursing staff with sx [id number] [facility] [address] [address] 05/09/2024 11:39:53 05/10/2024 13:50:01 Pain of shoulder region 08466998 M25.519 see HPInon traumatic right shoulder painGive now dose for tramadol 50 mg then tramadol 50 mg Q6 prnschedul e tylenol 1 g TIDxray 3 viewscan apply ice for pain or heat for comfort [id number] [facility] [address] [address] 05/19/2024 09:40:12 05/23/2024 12:46:45 Pain of shoulder region 65499781 M25.519 non traumatic right shoulder pain-xray negative for any acute findings.c ontinue tramadol 50 mg Q6 prnschedul e tylenol 1 g TID [id number] [facility] [address] [address] 06/16/2024 08:41:53 06/22/2024 12:46:48 Diplopia 58503516 H53.2 intermitte nt12/4 opthamolog y exam showed esophoria at distance , divergence insufficie ncy can be neurologic al neurology consult recommende d, otherwise follow up in 1 year. Impaired cognition 43907 6002 R41.89 Continue supportive care, expect decline.HC P invokedcon tinue to monitor mood and behaviors with recent med changes Essential hypertension 83915290 I10 Continue bisoprolol 2.5 mg qd, lasix 20 mg qd, losartan 25 mg qd. amlodipine 5 mg qd and clonidine 0.1 mg BID.Monito r BP and labs. Congestive heart failure 77322464 I50.22 euvolemic. she has been stableCont inue [...] bleeding risk. Chronic ob structive pulmonary disease 69218397 J43.8 Continue Advair 100/25 mcg BID and albuterol MDI 2 puffs q 4 hrs prn.Monito r resp. status. Osteoporosis 35447452 M8 1.0 Continue cholecalci ferol 2000 IU qd, calcium 500 mg BID, and risedronat e 35 mg weeklyMoni tor as outpt. Gastroesop hageal reflux disease without esophagitis 160258723 K21.9 tolerating a regular diet, no reported GI upsetpanto prazole discontinu ed due to QTc Hyperlipidemia 51260422 E78.49 Continue atorvastat in 40 mg qd.Monitor labs as outpt. Mixed anxi ety and depressive disorder 922577848 F41.8 nursing reports daily anxiety, currently on [...] of hydroxyzin e Restless l egs syndrome 46883668 G25.81 Continue requip 0.25 mg qhs.Monito r sxs. Mixed urin laura incontinence 957453290 N39.46 Continue estring 2 mg q 3 monthsMoni tor urinary function.F /U with uro prn. [id number] [facility] [address] [place] [id number] 06/20/2024 10:53:20 06/21/2024 14:19:17 Diplopia 56955607 H53.2 intermitte nt12/4 opthamolog y exam showed esophoria at distance , divergence insufficie ncy can be neurologic al neurology consult recommende d, otherwise follow up in 1 year.she will discuss with family Mixed anxi ety and depressive disorder 730349114 F41.8 nursing reports daily anxiety, currently on [...] and bleeding risk. Prolonged QT interval 11 6576436 I45.81 HX afib.QTc 467GDR - amiodarone and protonix decreased, hydroxyzin e stoppedden ies any associated sx/ no dizziness, palpitatio n etc.repeat ekg in 1 week [id number] [facility] [address] [place] [address] [place] [id number] 07/01/2024 08:22:16 07/04/2024 15:48:50 Respiratory tract congestion and cough 911982373 R05.9 non productive chest xray complete:T he lung johansen are clear without mass, infiltrate , congestion , or effusion. SARS-CoV-2 314413741 U07 .1 07/01 positive teststart Molnupirav ir 800 mg BID for 5 dayscontin ue supportive therapy with oxygen prnisolati on precaution [id number] [facility] [address] [place] [address] [place] [id number] 07/04/2024 09:57:50 07/05/2024 09:55:44 Respiratory tract congestion and cough 891934428 R05.9 no cough appreciate d on exam SARS-CoV-2 451328165 U07 .1 07/01 positive testcopnti gregoria Dela Cruzupirav ir 800 mg BID for 5 dayscontin ue supportive therapy with oxygen prnisolati on precaution [id number] [facility] [address] [facility] [place] [id number] 10/09/2024 10:55:30 10/13/2024 16:07:53 Mixed anxiety and depressive disorder 304729456 F41.8 stablecont inue escitalopr am, BusPIRone and trazodone Impaired cognition 41968 6002 R41.89 Continue supportive care, expect decline.HC P invokedcon tinue to monitor mood and behaviors with recent med changes Essential hypertension 82832139 I10 stableCont inue bisoprolol 2.5 mg qd, lasix 20 mg qd, losartan 25 mg qd. amlodipine 5 mg qd and clonidine 0.1 mg BID.Monito r BP and labs. Congestive heart failure 50838606 I50.22 euvolemic. stableCont inue bisoprolol 2.5 mg qd, lasix 20 mg qd and losartan 25 mg qd.Monitor resp. status, fluid status, wts and labs. Atrial fibrillation 4943 6004 I48.0 stablerate controlled cont amiodarone to 100 mg qdContinue eliquis 5 mg BID for AC.Monitor HR and bleeding risk. Chronic ob structive pulmonary disease 48316194 J43.8 stableCont inue Advair 100/25 mcg BID and albuterol MDI 2 puffs q 4 hrs prn.Monito r resp. status. Gastroesop hageal reflux disease without esophagitis 587585331 K21.9 stabletole rating a regular diet, no reported GI upsetpanto prazole discontinu ed due to QTc Hyperlipidemia 30169577 E78.49 Continue atorvastat in 40 mg qd.Monitor labs as outpt. [id number] Abhi Erickson MD [facility] [address] [place] [address] [place] [id number] 10/12/2024 11:19:17 10/14/2024 08:28:33 Impaired cognition 370310236 R41.89 baseline impaired cognitionH CP invokedmon itor for behaviorsp sych eval prn Pruritic rash 87466574 L 28.2 eschar x 2 present left wristdoes not appear infectedsu rrounding pruritisat arax 25 mg q 8 prnmonitor for effect [id number] MD MARCIO Ayers [address] [place] [address] [place] [id number] 10/24/2024 12:55:25 10/26/2024 11:39:25 Thrombocytosis 5656973 D75.839 D75.838 69036 acute thrombocyt osisrepeat stat cbc to recheck plt levelif remains elevated will starthydre a 1000 mg qd and request heme consult Leukocytosis 117640030 D 72.829 see above Impaired cognition 15507 6002 R41.89 baseline impaired cognitionH CP invokedcoo rdinate with HCP as needed for further workup [id number] DARVIN MARIE CNP [address] [place] [id number] 10/26/2024 12:10:11 11/01/2024 08:15:11 Thrombocytosis 8623667 D75.839 D75.838 06034 acute thrombocyt osisimprov ing with hydrea 1000 mg daily.repe at stat cbc to recheck plt level next week.if remains elevated will startconti nue hydrea 1000 mg dialy and will request heme consult Leukocytosis 159065927 D 72.829 improving. see above Impaired cognition 57602 6002 R41.89 baseline impaired cognitionH CP invokedcoo rdinate with HCP as needed for further workup [id number] DARVIN MARIE CNP [address] [place] [id number] 11/16/2024 10:25:17 11/18/2024 12:49:51 Thrombocytosis 9969837 D75.839 D75.838 38946 acute thrombocyt osisimprov ing with hydrea 1000 mg daily.Plt 300 on 11/14/24.elida l d/c hydrean 1000 mg and monitor CBC on Thursday, .R equest heme consult Leukocytosis 738766490 D 72.829 improving. see above Impaired cognition 86428 6002 R41.89 baseline impaired cognitionH CP invokedcoo rdinate with HCP as needed for further workup Mixed anxi ety and depressive disorder 155239451 F41.8 stablecont inue current psychotrop ic medication Essential hypertension 80637450 I10 stableCont inue bisoprolol 2.5 mg qd, lasix 20 mg qd, losartan 25 mg qd. amlodipine 5 mg qd and clonidine 0.1 mg BID.Monito r BP and labs. Congestive heart failure 39828291 I50.22 euvolemic. stableCont inue bisoprolol 2.5 mg qd, lasix 20 mg qd and losartan 25 mg qd.Monitor resp. status, fluid status, wts and labs. Atrial fibrillation 4943 6004 I48.0 stablerate controlled cont amiodarone to 100 mg qdContinue eliquis 5 mg BID for AC.Monitor HR and bleeding risk. Chronic ob structive pulmonary disease 55770784 J43.8 stableCont inue Advair 100/25 mcg BID and albuterol MDI 2 puffs q 4 hrs prn.Monito r resp. status. Gastroesop hageal reflux disease without esophagitis 975366475 K21.9 stabletole rating a regular diet, no reported GI upsetpanto prazole discontinu ed due to QTc Hyperlipidemia 93856971 E78.49 Continue atorvastat in 40 mg qd.Monitor labs as outpt. [id number] [facility] [address] [place] [id number] 01/18/2025 05:50:29 01/20/2025 13:05:29 Mixed anxiety and depressive disorder 416911507 F41.8 stablecont inue escitalopr am, BusPIRone and trazodone Impaired cognition 58314 6002 R41.89 Continue supportive care, expect decline.HC P invokedcon tinue to monitor mood and behaviors with recent med changes Essential hypertension 42193103 I10 stableCont inue bisoprolol 2.5 mg qd, lasix 20 mg qd, losartan 25 mg qd. amlodipine 5 mg qd and clonidine 0.1 mg BID.Monito r BP and labs. Congestive heart failure 03069326 I50.22 euvolemic. stableCont inue bisoprolol 2.5 mg qd, lasix 20 mg qd and losartan 25 mg qd.Monitor resp. status, fluid status, wts and labs. Atrial fibrillation 4943 6004 I48.0 stablerate controlled cont amiodarone to 100 mg qdContinue eliquis 5 mg BID for AC.Monitor HR and bleeding risk. Chronic ob structive pulmonary disease 60165041 J43.8 stableCont inue Advair 100/25 mcg BID and albuterol MDI 2 puffs q 4 hrs prn.Monito r resp. status. Gastroesop hageal reflux disease without esophagitis 867642703 K21.9 stabletole rating a regular diet, no reported GI upsetpanto prazole discontinu ed due to QTc Hyperlipidemia 37815947 E78.49 Continue atorvastat in 40 mg qd.Monitor labs as outpt. Health Concerns Section Related Observation LastModified by Organization Detai ls LastModified Time None Recorded Concern Status LastModified by Organization Details LastModified Time None Recorded Advance Directives Directive Y: Payers Insurance Date Sequence Insurance Name Policy Number Policy Burdick Covered Member ID Burdick Member ID Guarantor Name 01/18/2025 2 () Hillary Naila [id number] Hillary Rockwall 01/18/2025 1 MEDICARE B-PR: [employer] Hillary Pena Rockwall [id number] Hillary Rockwall 10/17/2023 2 UNSPECIFIED REMIT PAYOR Hillary Yoo Notes Date Note Type Note Provider Name and Address Organization Details Recorded Time 10/12/2024 text/html Patient is a 74 yo female resident asked to al for MD visit with pruritis left hand. Patient with dementia at baseline, brother in room helps with hx. Patient sitting in wheelchair in NAD. Abhi Erickson MD [address] [place] [address], [address], [place], [address], [facility] 10/12/2024 11:58:18 10/24/2024 text/html Patient is a 74 yo female resident seen for acute rounding. CBC was ordered showing significant elevated of pzr=3566 and mild elevation of WBC. Patient with baseline dementia lying in bed in NAD Abhi Erickson MD [address] [facility], [address], [place], [address], [facility] 10/24/2024 13:06:12 10/26/2024 text/html Patient is a 74 yo female resident seen for acute rounding. CBC was ordered showing significant elevated of gqf=9787 and mild elevation of WBC on 10/24. Pt started hydrea 1000 mg daily. Repeat lab result reviewed today. Patient with baseline dementia lying in bed in NAD DARVIN MARIE CNP [address] [facility], [address], [place], [address], [facility] 10/26/2024 12:27:33 11/16/2024 text/html Patient is a 74 yo female LTC resident seen for annual exam.She has been here after multiple falls and a resulting large right thigh hematoma, needing I&D and drains. Also was COVID+ and had a sub-acute left femur fx. She completed rehab and remained too weak to be able to return to [facility] and so is now LTC. Pt had labs, ebb=[id number] and mild elevation of WBC on 10/24. [...] [facility] DARVIN MARIE CNP [address], [address], [place], [address], [facility] 11/16/2024 11:44:39 01/18/2025 text/html ROS as noted in the HPI Hillary is a 74 yr old LTC resident seen for routine rounding. She has been at her baseline in [facility]. no changes in appetite or elimination, there are no acute nursing concerns. REGI COLÓN [address], [address], [place], [address], [facility] 01/19/2025 18:55:56 OBGyn Episode No OBEpisode recorded.
--- OUTSIDE RECORDS SUMMARY | 2025-06-26 21:58 | XMS_ITS | Data Portability ---
Author Organization [place] [facility] Address [address] [place] [id number] Care Team Providers Care Clinical Study Manager Name Role Phone ALONSO ANDINO Primary [...] note she recently moved up here from [place] to move into an [facility]. She is not a great historian. She gives me a med list with only a few medicines however she has pill packs from [place] that are totally different medicines that her [...] James agree and recc emeregent eval at [facility] PE - no s/s DVT< no hemoptysis, [...] Was able to discuss w/ PCP from [place] Dr Andino office who was only able to give me limited information and confirm she has seen cardiology in the past. Dr Mcarthur in [place] is director cost, I did have their number but I [...] called and pt [facility]. Expect called [facility] w/ very thorough reasons for escalation adn I was thanked for this level of detail. I did pass along pt PCP names and specialist names I had from [place]. Pt is on agreement and verbalizes understanding [...] diogr am No observ ation record ed. [email or web address] Not Available 10:31:15 Result Notes None recorded. Procedures Surgical History Date Name Laterality Status Provider Name and Address Organization Details Recorded Time Medication Review completed SAMSON Hadley [address], [place], [address], [place] [facility] 05/27/2022 10:20:35 ECG Interpretation - completed SAMSON Hadley [address], [place], [address], [place] [facility] 05/27/2022 10:23:27 Cataract Surgery completed SAMSON Avila [address], [place], [address], [place] [facility] 05/27/2022 09:22:29 bypass of stomach completed SAMSON Landers [address], [place], [address], [place] [facility] 05/27/2022 09:22:41 Imaging [...] Former Smoker SAMSON Hadley [address], [place], [address], [place] [facility] 05/27/2022 09:22:59 When Did [...] History Condition Response Coronary Artery Disease N Depression N COPD N Hypothyroidism N A-fib N Cancer N [...] ICD10 Code Diagnosis IMO Codes Diagnosis Note [id number] SAMSON Eli [facility] [address] [place] [address] 05/27/2022 08:28:33 05/28/2022 15:07:31 Tachycardia 5541824 R00.0 Community acquired pneumonia 912225445 J18.9 Irregular heart beat 361 869198 R00.8 Health Concerns Section Related Observation LastModified by Organization Detai ls LastModified Time None Recorded Concern Status LastModified by Organization Details LastModified Time None Recorded Advance Directives Directive None Recorded Payers Insurance Date Sequence Insurance Name Policy Number Policy Burdick Covered Member ID Burdick Member ID Guarantor Name 05/27/2022 1 *SELF PAY* Hillary Forsyth [id number] Hillary Naila 06/02/2022 1 MEDICARE B-DE: [employer] Hillary Pena Forsyth [id number] Hillary Forsyth 06/02/2022 2 () Hillary Forsyth [id number] Hillary Forsyth Notes Date Note Type Note Provider Name [...] note she recently moved up here from [place] to move into an [facility]. She is not a great historian. She gives me a med list with only a few medicines however she has pill packs from [place] that are totally different medicines that her [...] sxs today. SAMSON Hadley [address], [place], [address], [place] [facility] 05/27/2022 10:31:24 OBGyn Episode No OBEpisode recorded.
== END 2025-06-26 11:31 | disposition home or self-care (01) ==
LOC: HO.MMNH3L 11:30
PROVIDERS: Visit Provider Student in an Organized Health Care Education/Training Program
DX: J44.1 Chronic obstructive pulmonary disease with (acute) exacerbation (principal); F41.1 Generalized anxiety disorder
CPT/HCPCS: 87493

== ENCOUNTER 2025-06-29 06:27 | Outpatient (REF) | payer MEDICARE, MEDICAID, SELFPAY ==
--- OUTSIDE RECORDS SUMMARY | 2025-06-29 06:30 | XMS_ITS | Data Portability ---
Author Organization [facility] Main Office Address [address] [place] [address] Care Team Providers Care Accredited Legal Secretary Name Role Phone MARCIO DONG 3RD FLOOR OTHER [phone] Assessment Encounter Date Assessment Date Assessment LastModified by Organization Details LastModified Time 10/26/2024 10/26/202410/24 wbc=12.2 hb=13.3 tpf=8875 bun=11 cre=0.69 10/26 wbc 9, hgb 12.1, Plt 1017 Not available 10/26/2024 12:27:13 11/16/2024 11/16/202410/24 wbc=12.2 hb=13.3 eex=1967 bun=11 cre=0.69 10/26 wbc 9, hgb 12.1, [...] Address Organization Details Recorded Time Recurrent falls 025500731 Active 2022 JUAN MANUEL MORALES NP [address], [place], [address], [facility] [employer] 11:13:43 Osteoarthr itis 880426252 Active 2022 JUAN MANUEL MORALES NP [address], [address], [place], [address], [facility] 11:13:48 Chronic obstructiv e pulmonary disease 58857948 Active 2022 JUAN MANUEL MORALES NP [address], [address], [place], [address], [facility] 11:13:52 Gastroesop hageal reflux disease without esophagiti s 724823458 Active 2022 JUAN MANUEL MORALES NP [address], [address], [place], [address], [facility] 11:13:58 Congestive heart failure 63357145 Active 2022 JUAN MANUEL MORALES NP [address], [address], [place], [address], [facility] 11:14:03 Atrial fibrillati on 37746326 Active 2022 JUAN MANUEL MORALES NP [address], [address], [place], [address], [facility] 11:14:08 Hematoma of right thigh 595700726332 09518 Active 2022 JUAN MANUEL MORALES NP [address], [address], [place], [address], [facility] 11:14:21 Essential hypertensi on 07628024 Active 2022 JUAN MANUEL MORALES NP [address], [address], [place], [address], [facility] 11:40:46 Hyperlipid emia 25333565 Active 2022 JUAN MANUEL MORALES NP [address], [address], [place], [address], [facility] 11:41:07 Mixed anxiety and depressive disorder 107271008 Active 2022 JUAN MANUEL MORALES NP [address], [address], [place], [address], [place] [facility] 11:41:48 Impaired cognition 139892020 Active 2022 Sandra Morrison MD [address], [address], [place], [address], [facility] 01:04:56 Overactive urinary bladder 262176555 Active 2022 Sandra Morrison MD [address], [address], [place], [address], [facility] 01:13:05 Dry eyes 529575089 Active 2022 Sandra Morrison MD [address], [address], [place], [address], [facility] 01:14:09 Hematoma 209946184 Active 2022 left buttock JUAN MANUEL MORALES, TONY [address], [address], [place], [address], [facility] 13:03:34 Leukocytos is 626009738 Active 2023 JUAN MANUEL MORALES NP [address], [address], [place], [address], [facility] 12:21:55 Restless legs syndrome 35891930 Active 2023 Sandra Morrison MD [address], [place], [address], [facility] 18:41:39 Mixed urinary incontinen ce 493785627 Active 2023 Sandra Morrison MD [address], [place], [address], [facility] 18:42:46 Bacterial conjunctiv itis 552521528 Active 2023 REGI COLÓN [address], [address], [place], [address], [facility] 4 17:01:03 Thrombocyt osis 4665188 Active 2024 Abhi Erickson MD [address], [address], [place], [address], [facility] 13:01:15 Notes:Some problems listed i n Document: #[id number] could not be added to this patient's [...] cm 140/80 mm[Hg] Abhi Erickson MD [address] [place] [address], [place], [address], [facility] 10/24/2024 12:57:01 Date Recorded Body height Provider Name an d Address Organization Details Last Updated DateTime 01/18/2025 167.64 cm REGI COLÓN [address] [place] [address], [place], [address], [facility] 01/19/2025 18:53:56 Social History Question Answer Notes LastModified by Organizat ion Details LastModified Time Tobacco Smoking Status Former Smoker JUAN MANUEL MORALES NP [address] [place] [address], [place], [address], [facility] 08/08/2022 11:11:20 Do You Have An Advance Directive? Yes Information not available 08/11/2022 What Is Your Code Status? Full Code Information not available 08/11/2022 Where Do You Live? [facility], Previously Lived Alone, No Stairs Information not available 05/15/2023 Legal Guardian? No Informati on not available 08/12/2022 Do You Have A Medical Power Of Coutierier? Yes Information not available 08/12/2022 What Was [...] PF 05/22/2022 completed Maryam hernandez MA - [facility] 07/30/2023 12:41:28 Past Encounters Encounter ID Performer Location Encounter Start Date Encounter Closed Date Diagnosis/Indication Diagnosis SNOMED-CT Code Diagnosis ICD10 Code Diagnosis IMO Codes Diagnosis Note [id number] TONY ALMARAZ [address] [facility] [place] [address] 08/08/2022 09:43:58 08/12/2022 10:33:59 Recurrent falls 696699680 R29.6 PT OT eval and treatfall precaution sfrequent safety checks Hematoma o f right thigh 5983991688 1061434 S70.11XA change dressing per ordersmoni tor for increased swellingav oid further falls Atrial fibrillation 4943 6004 I48.91 amiodarone 200 mg dailyeiliq uis 5 mg bidbisopro lol 2.5 mg daily Chronic ob structive pulmonary disease 76488995 J44.9 albuterol inhaler q4hr prnadvair 100/25 daily Congestive heart failure 58898236 I50.9 lasix 20 mg dailylosar miller 25 mg daily Osteoarthritis 535654654 M19.90 cholecalci ferol 2000 dailyrisen dronate 35 weekly Gastroesop hageal reflux disease without esophagitis 808219303 K21.9 CaCarb 500 bidprotoni x 40 mg daily Essential hypertension 38504594 I10 amlodipine 5 mg dailycloni dine 0.1 mg q12 hr Hyperlipidemia 23159819 E78.5 atorvastat in 40 mg daily Mixed anxi ety and depressive disorder 680529810 F41.8 bupropion er 150 mg dailytrazo done 100 mg hs JUAN MANUEL MORALES NP [facility] [place] [address] 08/11/2022 14:11:22 08/13/2022 13:57:19 Hematoma of right thigh 6973068026 6137100 S70.11XA change dressing per ordersmoni tor for increased swellingav oid further falls Congestive heart failure 12441162 I50.9 lasix 20 mg dailylosar miller 25 mg daily [id number] MD MARCIO Ramirez [address] [place] [address] 08/12/2022 17:25:40 08/18/2022 16:13:47 Hematoma of right thigh 3046195279 8903155 S70.11XD With minimal drainage from drains.Lik bruno will get removed at appt tomorrow.M onitor thigh for healing.Mo nitor CBC. Congestive heart failure 79462944 I50.22 Appears euvolemic. Continue bisoprolol 2.5 mg qd, lasix 20 mg qd and losartan 25 mg qd.Monitor resp. status, fluid status, wts and labs. Recurrent falls 37033841 2 R29.6 Very deconditio demetrius.Needs PT/OT for strengthen ing, balance, gait training, safety and function.C ontinue fall precaution s.Monitor for safety. Atrial fibrillation 4943 6004 I48.0 Rate in good control on meds as above and amiodarone 200 mg qd.Continu e eliquis 5 mg BID for AC.Monitor HR and bleeding risk. Chronic ob structive pulmonary disease 71685130 J43.8 At baseline.C ontinue Advair 100/25 mcg BID and albuterol MDI 2 puffs q 4 hrs prn.Monito r resp. status. Gastroesop hageal reflux disease without esophagitis 671150506 K21.9 No current sxs.Contin ue pantoprazo le 40 mg qd.Monitor sxs. Essential hypertension 68234545 I10 Systolic has been high periodical ly, likely due to pain.No change in meds for now.Contin ue meds as above and amlodipine 5 mg qd and clonidine 0.1 mg BID.Monito r BP and labs. Hyperlipidemia 86448552 E78.49 Continue atorvastat in 40 mg qd.Monitor labs as outpt. Mixed anxi ety and depressive disorder 872866623 F41.8 Mood ok tonight.Co ntinue bupropion ER 150 mg qd and trazodone 100 mg qhsMonitor mood.Psych consult prn. Osteoporosis 52300785 M8 1.0 Continue cholecalci ferol 2000 IU qd, calcium 500 mg BID, and risedronat e 35 mg weeklyMoni tor as outpt. [id number] TONY ALMARAZ [address] [place] [address] 08/14/2022 11:52:29 08/18/2022 16:23:58 Chronic obstructive pulmonary disease 06758510 J44.9 albuterol inhaler q4hr prnadvair 100/25 daily Congestive heart failure 72553021 I50.9 lasix 20 mg dailylosar miller 25 mg daily [id number] JUAN MANUEL MORALES NP [address] [address] 08/20/2022 13:24:34 08/22/2022 13:09:35 Chronic obstructive pulmonary disease 87428232 J43.8 albuterol inhaler q4hr prnadvair 100/25 daily Mixed anxi ety and depressive disorder 179991565 F41.8 bupropion er 150 mg dailytrazo done 100 mg hsmonitor and chart any changes in mood or behaviorsp sych prn [id number] JUAN MANUEL MORALES NP [facility] [address] [place] [address] 08/27/2022 10:50:59 09/02/2022 10:27:22 Hematoma of right thigh 0303590911 0143741 S70.11XD change dressing per ordersmoni tor for increased swellingav oid further fallsWBAT Chronic ob structive pulmonary disease 87801419 J43.8 albuterol inhaler q4hr prnadvair 100/25 daily Recurrent falls 17326555 2 R29.6 PT OT eval and treatfall precaution sfrequent safety checks [id number] JUAN MANUEL TONY MORALES [facility] [address] [place] [address] 09/03/2022 10:52:54 09/05/2022 13:45:58 Chronic obstructive pulmonary disease 53359110 J43.8 albuterol inhaler q4hr prnadvair 100/25 daily Recurrent falls 31917600 2 R29.6 PT OT eval and treatfall precaution sfrequent safety checks [id number] JUAN MANUEL TONY MORALES [address] [address] 09/05/2022 10:51:26 09/09/2022 07:59:39 Recurrent falls 916937912 R29.6 PT OT eval and treatfall precaution sfrequent safety checks Hematoma o f right thigh 0201350936 8805449 S70.11XA [facility] for increased swellingav oid further falls Atrial fibrillation 4943 6004 I48.91 amiodarone 200 mg dailyeiliq uis 5 mg bidbisopro lol 2.5 mg daily Chronic ob structive pulmonary disease 02222001 J44.9 albuterol inhaler q4hr prnadvair 100/25 daily Congestive heart failure 35886599 I50.9 lasix 20 mg dailylosar miller 25 mg daily Osteoarthritis 265765119 M19.90 cholecalci ferol 2000 dailyrisen dronate 35 weekly Gastroesop hageal reflux disease without esophagitis 409038741 K21.9 CaCarb 500 bidprotoni x 40 mg daily Essential hypertension 93076196 I10 amlodipine 5 mg dailycloni dine 0.1 mg q12 hr Hyperlipidemia 57058694 E78.5 atorvastat in 40 mg daily Mixed anxi ety and depressive disorder 898323337 F41.8 bupropion er 150 mg dailytrazo done 100 mg hs [id number] Sandra Morrison MD [facility] [address] [place] [address] 10/07/2022 18:29:02 10/10/2022 15:21:01 Abrasion and/or friction burn of back without infection 32579256 S30.810A With open abrasion.W ill use local care and protection with dressings and monitor sxs. Fall W18.39XA Pt. reminded to call for help when she wants to get up.Continu es to need PT/OT for strengthen ing, balance, gait training, safety and function.C ontinue fall precaution s.Monitor for safety. Essential hypertension 15346453 I10 Systolic was very high this AM, not rechecked since fall. Overall good recently.C ontinue bisoprolol 2.5 mg qd, lasix 20 mg qd, losartan 25 mg qd. amlodipine 5 mg qd and clonidine 0.1 mg BID.Monito r BP and labs. [id number] Sandra Morrison MD [address] [place] [address] 10/09/2022 13:55:48 10/14/2022 11:00:12 Abrasion and/or friction burn of back without infection 96655186 S30.810A Abrasion healing.Co ntinue local care and protection with dressings and monitor sxs. fall W18.39XA Fall 2 days ago.Contin ues to need PT/OT for strengthen ing, balance, gait training, safety and function.C ontinue fall precaution s.Monitor for safety. Essential hypertension 26514864 I10 Continues with intermitte nt elevated SBP, [...] and labs. Hematoma o f right thigh 1450811509 8494736 S70.11XD Healed.CBC stable. Congestive heart failure 71330761 I50.22 Continues to be euvolemic. Continue bisoprolol 2.5 mg qd, lasix 20 mg qd and losartan 25 mg qd.Monitor resp. status, fluid status, wts and labs. Atrial fibrillation 4943 6004 I48.0 Rate remains in good control on meds as above and amiodarone 200 mg qd.Continu e eliquis 5 mg BID for AC.Monitor HR and bleeding risk. Chronic ob structive pulmonary disease 59146746 J43.8 Continues at baseline.C ontinue Advair 100/25 mcg BID and albuterol MDI 2 puffs q 4 hrs prn.Monito r resp. status. Osteoporosis 39833051 M8 1.0 Continue cholecalci ferol 2000 IU qd, calcium 500 mg BID, and risedronat e 35 mg weeklyMoni tor as outpt. Gastroesop hageal reflux disease without esophagitis 146566586 K21.9 No current sxs.Contin ue pantoprazo le 40 mg qd.Monitor sxs. Hyperlipidemia 53602876 E78.49 Continue atorvastat in 40 mg qd.Monitor labs as outpt. Mixed anxi ety and depressive disorder 393384774 F41.8 Mood ok tonight.Co ntinue bupropion ER 150 mg qd, Buspar 5 mg qd, and trazodone 100 mg qhsMonitor mood.Psych consult prn. Impaired cognition 87003 6002 R41.89 Oriented today, but with frequent episodes of confusion. Continue supportive care, expect decline.HC P invokedMon itor mood and behaviors. Psych consult prn. Overactive urinary bladder 966248093 N32.81 Per pt. has been on Gemtesa in the past, would like to restart.Ge mtesa 75 mg qd.Monitor urinary function. Restless l egs syndrome 52627898 G25.81 With increased sxs of RLS.Will start requip 0.25 mg qhs.Monito r sxs. Dry eyes 002292655 H04.1 23 Will start natural tears q 2 hrs prn, may leave at bedside.Mo nitor sxs. [id number] TONY ALMARAZ [address] [place] [address] 10/13/2022 12:47:26 10/15/2022 12:27:09 Hematoma 460664404 M79.81 sent to ED for further eval as it is expanding [id number] TONY ALMARAZ [address] [place] [address] 10/17/2022 10:23:03 10/22/2022 16:06:33 Hematoma 513839877 M79.81 oxycodone 2.5 mg q6hr prn for 5 daysmonito r for healibng Recurrent falls 05438497 2 R29.6 PT OT eval and treatfall precaution sfrequent safety checks Hematoma o f right thigh 5256270902 1321027 S70.11XA resolvedav oid further falls Atrial fibrillation 4943 6004 I48.91 amiodarone 200 mg dailyeiliq uis 5 mg bidbisopro lol 2.5 mg daily Chronic ob structive pulmonary disease 47464650 J44.9 albuterol inhaler q4hr prnadvair 100/25 daily Congestive heart failure 39097057 I50.9 lasix 20 mg dailylosar miller 25 mg daily Osteoarthritis 585030467 M19.90 cholecalci ferol 2000 dailyrisen dronate 35 weekly Gastroesop hageal reflux disease without esophagitis 526366651 K21.9 CaCarb 500 bidprotoni x 40 mg daily Essential hypertension 22223891 I10 amlodipine 5 mg dailycloni dine 0.1 mg q12 hr Hyperlipidemia 21982060 E78.5 atorvastat in 40 mg daily Mixed anxi ety and depressive disorder 810972229 F41.8 bupropion er 150 mg dailybuspa r 5 mg dailytrazo done 100 mg hs Overactive urinary bladder 680532006 N32.81 Gemtesa 75 mg qd.Monitor urinary function. [id number] JUAN MANUEL MORALES NP [address] [address] 10/20/2022 12:38:53 10/22/2022 16:25:33 Hematoma 030387078 M79.81 oxycodone 2.5 mg q6hr prn for 5 daysmonito r for healing Recurrent falls 53745317 2 R29.6 PT OT eval and treatfall precaution sfrequent safety checks [id number] JUAN MANUEL MORALES NP [address] [address] 10/24/2022 10:45:27 10/28/2022 12:44:55 Hematoma 513938807 M79.81 oxycodone 2.5 mg q6hr prn for 5 daysmonito r for healing Impaired cognition 82215 6002 R41.89 Oriented intermitte ntly, but with frequent episodes of confusion. Continue supportive care, expect decline.HC P invokedMon itor mood and behaviors. Psych consult prn. [id number] JUAN MANUEL MORALES NP MARCIO DONG [address] [place] [address] [place] [address] 10/29/2022 13:57:22 10/31/2022 15:54:37 Hematoma 290016785 M79.81 monitor for healing Recurrent falls 47469131 2 R29.6 PT OT eval and treatfall precaution sfrequent safety checks Hematoma o f right thigh 4042600287 5877647 S70.11XA resolvedav oid further falls Atrial fibrillation 4943 6004 I48.91 amiodarone 200 mg dailyeiliq uis 5 mg bidbisopro lol 2.5 mg daily Chronic ob structive pulmonary disease 25784960 J44.9 albuterol inhaler q4hr prnadvair 100/25 daily Congestive heart failure 34881520 I50.9 lasix 20 mg dailylosar miller 25 mg daily Osteoarthritis 672487050 M19.90 cholecalci ferol 2000 dailyrisen dronate 35 weekly Gastroesop hageal reflux disease without esophagitis 524972124 K21.9 CaCarb 500 bidprotoni x 40 mg daily Essential hypertension 99242351 I10 amlodipine 5 mg dailycloni dine 0.1 mg q12 hr Hyperlipidemia 75270911 E78.5 atorvastat in 40 mg daily Mixed anxi ety and depressive disorder 331233992 F41.8 bupropion er 150 mg dailybuspa r 5 mg dailytrazo done 100 mg hs Overactive urinary bladder 904197255 N32.81 Gemtesa 75 mg qd.Monitor urinary function. [id number] MD MARCIO Cline [facility] [address] [place] [address] [place] [address] 01/28/2023 07:59:08 01/30/2023 15:30:48 Impaired cognition 253182839 R41.89 will monitor and support as neededI did not feel that I could invoke patient's HCP proxy today as she was quite appropriat e in her answers to my questions with even some insight. Chronic ob structive pulmonary disease 02509243 J41.0 Advair 250-50: one puff [id number] rol HFA: 2 puffs q4h prnwill monitor Atrial fibrillation 4943 6004 I48.0 apixaban 5 mg bidbisopro lol 2.5 mg dailyamiod arone 200 mg dailywill monitor Essential hypertension 32436776 I10 bisoprolol 2.5 mg dailyamlod ipine 5 mg dailyfuros emide 20 mg dailylosar miller 25 mg dailycloni dine 0.1 mg r03ykibo monitor Mixed anxi ety and depressive disorder 240999409 F41.8 buspirone 5 mg tidtrazodo ne 100 mg at hsbupropri on 100 mg dailyescit alopram 10 mg dailyhydro xyzine 10 mg q8h prn anxietywil l monitor Overactive urinary bladder 060368525 N32.81 vibegron 75 mg dailywill monitor Restless l egs syndrome 55513428 G25.81 ropinirole 0.25 mg dailywill monitor Gastroesop hageal reflux disease without esophagitis 152184662 K21.9 pantoprazo le 40 mg dailywill monitor Primary osteoporosis 276 948868 M81.0 risendrona te 25 mg weeklywill monitor Chronic sy stolic heart failure 351928804 I50.22 losartan 25 mg dailyfuros emide 20 mg dailybisop rolol 2.5 mg dailywill monitor [id number] TONY ALMARAZ [address] [address] 03/20/2023 16:32:09 03/27/2023 09:38:51 Overactive urinary bladder 087123646 N32.81 urology consult prnMonitor urinary function. Impaired cognition 27473 6002 R41.89 will monitor and support as needed Chronic ob structive pulmonary disease 33579724 J41.0 Advair 250-50: one puff d45qvcubac rol HFA: 2 puffs q4h prnwill monitor Atrial fibrillation 4943 6004 I48.0 apixaban 5 mg bidbisopro lol 2.5 mg dailyamiod arone 200 mg dailywill monitor Essential hypertension 32407832 I10 bisoprolol 2.5 mg dailyamlod ipine 5 mg dailyfuros emide 20 mg dailylosar miller 25 mg dailycloni dine 0.1 mg b47vcqqt monitor Mixed anxi ety and depressive disorder 327810998 F41.8 buspirone 5 mg tidtrazodo ne 100 mg at hsbupropri on 100 mg dailyescit alopram 10 mg dailyhydro xyzine 10 mg q8h prn anxietywil l monitor Restless l egs syndrome 76159170 G25.81 ropinirole 0.25 mg dailywill monitor Gastroesop hageal reflux disease without esophagitis 532593694 K21.9 pantoprazo le 40 mg dailywill monitor Primary osteoporosis 276 943142 M81.0 risendrona te 25 mg weeklywill monitor Chronic sy stolic heart failure 551051116 I50.22 losartan 25 mg dailyfuros emide 20 mg dailybisop rolol 2.5 mg dailywill monitor Recurrent falls 02653995 2 R29.6 PT OT eval and treatfall precaution sfrequent safety checks [id number] Sandra Morrison MD [address] [place] [address] 05/15/2023 17:56:32 05/19/2023 11:07:46 Fall 1859183 R29.6 Hx of fallsConti nue fall precaution s.Monitor for safety. Essential hypertension 59655992 I10 Good control.Co ntinue bisoprolol 2.5 mg qd, lasix 20 mg qd, losartan 25 mg qd. amlodipine 5 mg qd and clonidine 0.1 mg BID.Monito r BP and labs. Hematoma o f right thigh 1695237542 3843240 S70.11XD Healed.CBC stable. Impaired cognition 30642 6002 R41.89 Mild confusion today, but fairly oriented.C ontinue supportive care, expect decline.HC P invokedMon itor mood and behaviors. Psych consult prn. Congestive heart failure 63247699 I50.22 Continues to be euvolemic. Continue bisoprolol 2.5 mg qd, lasix 20 mg qd and losartan 25 mg qd.Monitor resp. status, fluid status, wts and labs. Atrial fibrillation 4943 6004 I48.0 Rate remains in good control on meds as above and amiodarone 200 mg qd.Continu e eliquis 5 mg BID for AC.Monitor HR and bleeding risk. Chronic ob structive pulmonary disease 17220179 J43.8 Continues at baseline.C ontinue Advair 100/25 mcg BID and albuterol MDI 2 puffs q 4 hrs prn.Monito r resp. status. Osteoporosis 42612122 M8 1.0 Continue cholecalci ferol 2000 IU qd, calcium 500 mg BID, and risedronat e 35 mg weeklyMoni tor as outpt. Gastroesop hageal reflux disease without esophagitis 496402615 K21.9 No current sxs.Contin ue pantoprazo le 40 mg qd.Monitor sxs. Hyperlipidemia 43738830 E78.49 Continue atorvastat in 40 mg qd.Monitor labs as outpt. Mixed anxi ety and depressive disorder 097002591 F41.8 Mood ok tonight.Co ntinue bupropion ER 100 mg qd, Buspar 5 mg TID, clonidine 0.1 m BID, and trazodone 100 mg qhsMonitor mood.Psych consult prn. Restless l egs syndrome 35617566 G25.81 Continue requip 0.25 mg qhs.Monito r sxs. Mixed urin laura incontinence 292683492 N39.46 Continue estring 2 mg q 3 months and estrace cream 2 gms 3x/wkMonit or urinary function.F /U with uro prn. Visual hallucinations 64 412020 R44.1 Psych consult for visual and auditory hallucinat ions.[place] ring to pt. [id number] TONY ALMARAZ [address] [place] [address] [place] [address] 07/10/2023 12:52:00 07/21/2023 11:22:40 Overactive urinary bladder 809605908 N32.81 urology consult prnMonitor urinary function.d -mannose 500 mg daily uti preventati ve Impaired cognition 58894 6002 R41.89 will monitor and support as needed Chronic ob structive pulmonary disease 98793319 J41.0 Advair 250-50: one puff m48qsaovlb rol HFA: 2 puffs q4h prnwill monitor Atrial fibrillation 4943 6004 I48.0 apixaban 5 mg bidbisopro lol 2.5 mg dailyamiod arone 200 mg dailywill monitor Essential hypertension 14001262 I10 bisoprolol 2.5 mg dailyamlod ipine 5 mg dailyfuros emide 20 mg dailylosar miller 25 mg dailycloni dine 0.1 mg y26oaalu monitor Mixed anxi ety and depressive disorder 613398669 F41.8 buspirone 5 mg tidtrazodo ne 100 mg at hsbupropri on 100 mg dailyescit alopram 10 mg dailyhydro xyzine 10 mg q8h prn anxietywil l monitor Restless l egs syndrome 87412568 G25.81 ropinirole 0.25 mg dailywill monitor Gastroesop hageal reflux disease without esophagitis 714498718 K21.9 pantoprazo le 40 mg dailywill monitor Primary osteoporosis 276 717353 M81.0 risendrona te 25 mg weeklywill monitor Chronic sy stolic heart failure 437189119 I50.22 losartan 25 mg dailyfuros emide 20 mg dailybisop rolol 2.5 mg dailywill monitor Recurrent falls 82038226 2 R29.6 PT OT eval and treatfall precaution sfrequent safety checks [id number] JUAN MANUEL MORALES NP [address] [address] 07/15/2023 12:09:17 07/21/2023 14:31:17 Leukocytosis 416737599 D72.829 UA C/Scxr [id number] Martina Vidalburn Hazel [address] [address] 08/28/2023 10:48:09 10/26/2023 15:56:34 Atrial fibrillation 55905383 I48.0 chronic, stable. RCcontinue eliquiscon tinue norvasccon tinue amiodarone monitor HR Chronic ob structive pulmonary disease 59595891 J41.0 chronic stablecont inue inhalersmo nitor for changes in respirator y status Congestive heart failure 92173944 I50.22 chronic, stablecont inue lasix 20mg dailymonit or BMP Essential hypertension 02835168 I10 chronic stablecont inue norvasc and losartanal so on lasix Hyperlipidemia 91848881 E78.49 continue atorvastat inmonitor lipids annually [id number] Jenni Kwong MD [address] [place] [address] 09/09/2023 08:10:55 09/15/2023 10:16:26 Impaired cognition 717714846 R41.89 will monitor and support as needed Mixed anxi ety and depressive disorder 280942173 F41.8 buspirone 5 mg tidtrazodo ne 100 mg at hsbupropri on 100 mg dailyescit alopram 10 mg dailyhydro xyzine 10 mg q8h prn anxietywil l monitor Atrial fibrillation 4943 6004 I48.0 apixaban 5 mg bidbisopro lol 2.5 mg dailyamiod arone 200 mg dailywill monitor Essential hypertension 62950765 I10 bisoprolol 2.5 mg dailyamlod ipine 5 mg dailyfuros emide 20 mg dailylosar miller 25 mg dailycloni dine 0.1 mg i18tyvuk monitor Hyperlipidemia 72402615 E78.49 atorvastat in 40 mg dailywill monitor Chronic ob structive pulmonary disease 50695019 J41.0 Advair 250-50: one puff [id number] rol HFA: 2 puffs q4h prnwill monitor Gastroesop hageal reflux disease without esophagitis 977819474 K21.9 pantoprazo le 40 mg dailywill monitor Restless l egs syndrome 16967874 G25.81 ropinirole 0.25 mg dailywill monitor Cobalamin deficiency 190 589945 E53.8 B12 500 mcg dailywill monitor [id number] [facility] [address] [place] [address] 09/21/2023 11:12:35 09/23/2023 09:57:55 Acute dermatitis 56877327 L30.9 left upper facial near left eye [...] provide new make up brushes Impaired cognition 29091 6002 R41.89 will monitor and support as needed [id number] [facility] MARCIO DONG [address] [place] [address] [place] [address] 09/22/2023 15:18:31 09/24/2023 12:07:21 Impaired cognition 141324129 R41.89 will monitor and support as needed Pain of le ft knee region 8869704974 74907 M25.562 see hpiwill scheduled 975 mg tylenol TIDxray left knee 2 viewsconsi christiano PT/OT eval if imaging is negative for fx. [id number] [facility] [address] [place] [address] [place] [address] 10/13/2023 18:47:09 10/15/2023 17:16:34 Cough 17002077 R05.9 10/11: started mucinex 600 mg q [...] dayincreas e oral hydrationm onitor resp status [id number] [facility] [address] [place] [address] [place] [address] 10/29/2023 11:14:47 11/03/2023 12:16:03 Impaired cognition 539251799 R41.89 Continue supportive care, expect decline.HC P invokedMon itor mood and behaviors. Psych consult prn. Essential hypertension 76530419 I10 BP has been controlled with current medicatios .Continue bisoprolol 2.5 mg qd, lasix 20 mg qd, losartan 25 mg qd. amlodipine 5 mg qd and clonidine 0.1 mg BID.Monito r BP and labs. Congestive heart failure 80640391 I50.22 euvolemic. Continue bisoprolol 2.5 mg qd, lasix 20 mg qd and losartan 25 mg qd.Monitor resp. status, fluid status, wts and labs. Atrial fibrillation 4943 6004 I48.0 HR controlled continue amiodarone 200 mg qd.Continu e eliquis 5 mg BID for AC.Monitor HR and bleeding risk. Chronic ob structive pulmonary disease 54161694 J43.8 Continues at baseline.C ontinue Advair 100/25 mcg BID and albuterol MDI 2 puffs q 4 hrs prn.Monito r resp. status. Osteoporosis 08329728 M8 1.0 Continue cholecalci ferol 2000 IU qd, calcium 500 mg BID, and risedronat e 35 mg weeklyMoni tor as outpt. Gastroesop hageal reflux disease without esophagitis 862695545 K21.9 No current sxs.Contin ue pantoprazo le 40 mg qd.Monitor sxs. Hyperlipidemia 69501099 E78.49 Continue atorvastat in 40 mg qd.Monitor labs as outpt. Mixed anxi ety and depressive disorder 856915631 F41.8 Continue bupropion ER 100 mg qd, Buspar 5 mg TID, clonidine 0.1 m BID, and trazodone 100 mg qhs,lexapr o 10 mg daily and hydroxyzin e 10 mg qdMonitor mood.Psych consult prn. Restless l egs syndrome 57706063 G25.81 Continue requip 0.25 mg qhs.Monito r sxs. Mixed urin laura incontinence 835807252 N39.46 Continue estring 2 mg q 3 monthsMoni tor urinary function.F /U with uro prn. Tear of skin 480558573 T 14.8XXA LLE flap tear, approximat edcontinue to monitor healing. [id number] [facility] [address] [place] [address] 11/10/2023 12:24:35 11/23/2023 12:50:14 Pain of shoulder region 81078060 M25.519 right shoulder pain+ discomfort with abduction, suspect OAnursing to give now dose tylenol and continue prnPT/OT eval and treatwill monitor. [id number] [facility] [address] [place] [address] 11/25/2023 11:56:55 11/27/2023 12:02:47 Candidiasis of vagina 33335503 B37.31 vaginal redness appears yeastPatie nt has no discomfort start diflucan 150 mg Q72 for 3 dosesPt is incontinen t, nursing encourage to check for incontinen t episode and change Q2.keep skin clean and drymonitor for resolution [id number] MD MARCIO Ramirez IKER [address] [place] [address] rd [place] [address] 01/15/2024 21:46:22 02/02/2024 07:55:44 Impaired cognition 884928044 R41.89 Continues at baseline.C ontinue escitalopr am 10 mg qd, bupropion ER 100 mg qd, Buspar 5 mg TID, clonidine 0.1 m BID, trazodone 100 mg qhs, and hydroxyzin e 10 mg qd.Continu e supportive care, expect decline.HC P invokedMon itor mood and behaviors. Psych follows. Visual hallucinations 64 839178 R44.1 Psych follows, no mention of this in recent notes.Aida tor Essential hypertension 84438672 I10 Continues in good control.Co ntinue bisoprolol 2.5 mg qd, lasix 20 mg qd, losartan 25 mg qd. amlodipine 5 mg qd and clonidine 0.1 mg BID.Monito r BP and labs. Congestive heart failure 93519241 I50.22 Continues to be euvolemic. Continue bisoprolol 2.5 mg qd, lasix 20 mg qd and losartan 25 mg qd.Monitor resp. status, fluid status, wts and labs. Atrial fibrillation 4943 6004 I48.0 Rate in good control on meds as above and amiodarone 200 mg qd.Continu e eliquis 5 mg BID for AC.Monitor HR and bleeding risk. Chronic ob structive pulmonary disease 46622988 J43.8 Continues at baseline.C ontinue Advair 100/25 mcg BID and albuterol MDI 2 puffs q 4 hrs prn.Mucine x 600 mg BID added for cough in 10/2023.Mon itor resp. status. Osteoporosis 12375159 M8 1.0 Continue cholecalci ferol 2000 IU qd, calcium 500 mg BID, and risedronat e 35 mg weeklyMoni tor as outpt. Gastroesop hageal reflux disease without esophagitis 218712657 K21.9 No current sxs.Contin ue pantoprazo le 40 mg qd.Monitor sxs. Hyperlipidemia 67818283 E78.49 Continue atorvastat in 40 mg qd.Monitor labs as outpt. Mixed anxi ety and depressive disorder 002278691 F41.8 As above. Restless l egs syndrome 54914288 G25.81 She mentions this tonight.Co ntinue requip 0.25 mg qhs.Consid er increase to 0.5 mg qhs.Monito r sxs. Mixed urin laura incontinence 407985956 N39.46 Continue estring 2 mg q 3 months.Mon itor urinary function.F /U with uro prn. Cough 18782059 R05.9 Back to baseline.M onitor [id number] [facility] [address] [address] 02/24/2024 09:53:07 02/25/2024 10:07:37 Bacterial conjunctivitis 392249041 H10.9 see hpibilater al erythema, dry yellowish discharge noted on lashes and corners or eyesstart ofloxacin 0.3 % 2 gtts QID for 5 daysmonito r for resolution patient encouraged to avoid rubbing eyes, apply cool compress for comfort. [id number] [facility] [address] [address] 03/02/2024 10:16:42 03/04/2024 10:24:18 Bacterial conjunctivitis 464329734 H10.9 ofloxacin eye gtts completeds clera white, no drainage or discharge, denies didcomfort .bilateral erythema, dry yellowish discharge noted on lashes and corners or eyespatien t encouraged to avoid rubbing eyes, apply cool compress for comfort. Mixed anxi ety and depressive disorder 011449129 F41.8 followed by [facility] seen on 02/28 with recommenda tion for GDR she is currently on 4 psychotrop ic medication 03/02: decrease bupropion ER 100 mg qd to 75 mgcheck EKG for QTcContinu e , Buspar 5 mg TID, clonidine 0.1 m BID, and trazodone 100 mg qhs,lexapr o 10 mg daily and hydroxyzin e 10 mg qdMonitor mood.Psych prn [id number] [facility] [address] [address] 03/07/2024 15:12:42 03/09/2024 09:31:11 Recurrent falls 214187185 R29.6 see hpino acute injuries or reports of discomfort .nursing to continue post fall protocol. [id number] [facility] [address] [facility] [place] [address] 03/09/2024 10:14:06 03/15/2024 13:07:32 Impaired cognition 655171464 R41.89 Continue supportive care, expect decline.HC P invokedMon itor mood and behaviors. Psych consult prn. Essential hypertension 65185895 I10 Continue bisoprolol 2.5 mg qd, lasix 20 mg qd, losartan 25 mg qd. amlodipine 5 mg qd and clonidine 0.1 mg BID.Monito r BP and labs. Congestive heart failure 23578067 I50.22 euvolemic. she has been stableCont inue bisoprolol 2.5 mg qd, lasix 20 mg qd and losartan 25 mg qd.Monitor resp. status, fluid status, wts and labs. Atrial fibrillation 4943 6004 I48.0 denies any chest pain or other associated sx,continu e amiodarone 200 mg qd.Continu e eliquis 5 mg BID for AC.Monitor HR and bleeding risk. Chronic ob structive pulmonary disease 74831447 J43.8 Continues at baseline.C ontinue Advair 100/25 mcg BID and albuterol MDI 2 puffs q 4 hrs prn.Monito r resp. status. Osteoporosis 09403939 M8 1.0 Continue cholecalci ferol 2000 IU qd, calcium 500 mg BID, and risedronat e 35 mg weeklyMoni tor as outpt. Gastroesop hageal reflux disease without esophagitis 871224905 K21.9 tolerating a regular diet, no reported GI upsetConti nue pantoprazo le 40 mg qd.Monitor sxs. Hyperlipidemia 55283633 E78.49 Continue atorvastat in 40 mg qd.Monitor labs as outpt. Mixed anxi ety and depressive disorder 461103793 F41.8 Continue bupropion ER 100 mg qd, Buspar 5 mg TID, clonidine 0.1 m BID, and trazodone 100 mg qhs,lexapr o 10 mg daily and hydroxyzin e 10 mg qdMonitor mood.Psych consult prn. Restless l egs syndrome 13395000 G25.81 Continue requip 0.25 mg qhs.Monito r sxs. Mixed urin laura incontinence 838075402 N39.46 Continue estring 2 mg q 3 monthsMoni tor urinary function.F /U with uro prn. Bacterial conjunctivitis 977041952 H10.9 resolvedof loxacin eye gtts completeds stacy villalobos, no drainage or discharge, denies discomfort . Recurrent falls 49776812 2 R29.6 s/p fall 03/05no acute injuries or reports of discomfort .nursing to continue post fall protocol. [id number] [facility] [address] [address] 04/04/2024 13:13:21 04/05/2024 13:32:19 Viral conjunctivitis 63103089 B30.9 left eyeleft sclera erythema, lower lid swelling( aggravated by rubbing) with clear drainage.n o itchiness or discomfort start azelastine gtt BID for 14 day.monito r for resolution patient encouraged to avoid rubbing eyes, apply cool compress for comfort. [id number] [facility] [address] [place] [address] 04/07/2024 11:04:20 04/08/2024 12:46:40 Viral conjunctivitis 97355614 B30.9 left eye /stablelef t sclera erythema, lower lid swelling( aggravated by rubbing) with clear drainage.n o itchiness or discomfort start azelastine gtt BID for 14 day.- have not received med from pharmacy-m onitor for resolution patient encouraged to avoid rubbing eyes, apply cool compress for comfort. Acute urin laura tract infection 808608800 N39.0 see hpiwill start bactrim 400mg Q12 for 7 dayadd probiotic BIDencoura ged to have increased water consumptio n to flush out toxins Hypokalemia 61664046 E87 .6 subtle at 3.1will replete with kcl 20 meq times 2 daysmonito r for associated sx (weakness, cramping, twitching) patient to notify nursing staff with sx [id number] [facility] e [address] [facility] [place] [address] 04/28/2024 11:26:55 04/29/2024 11:42:54 Impaired cognition 371778430 R41.89 stableCont inue supportive care, expect decline.HC P invokedMon itor mood and behaviors. Psych consult prn. Essential hypertension 51392052 I10 Continue bisoprolol 2.5 mg qd, lasix 20 mg qd, losartan 25 mg qd. amlodipine 5 mg qd and clonidine 0.1 mg BID.Monito r BP and labs. Congestive heart failure 08388525 I50.22 euvolemic. she has been stableCont inue bisoprolol 2.5 mg qd, lasix 20 mg qd and losartan 25 mg qd.Monitor resp. status, fluid status, wts and labs. Atrial fibrillation 4943 6004 I48.0 denies any chest pain or other associated sx,continu e amiodarone 200 mg qd.Continu e eliquis 5 mg BID for AC.Monitor HR and bleeding risk. Chronic ob structive pulmonary disease 96233320 J43.8 Continues at baseline.C ontinue Advair 100/25 mcg BID and albuterol MDI 2 puffs q 4 hrs prn.Monito r resp. status. Osteoporosis 78579010 M8 1.0 Continue cholecalci ferol 2000 IU qd, calcium 500 mg BID, and risedronat e 35 mg weeklyMoni tor as outpt. Gastroesop hageal reflux disease without esophagitis 323795626 K21.9 tolerating a regular diet, no reported GI upsetConti nue pantoprazo le 40 mg qd.Monitor sxs. Hyperlipidemia 50842344 E78.49 Continue atorvastat in 40 mg qd.Monitor labs as outpt. Mixed anxi ety and depressive disorder 091254403 F41.8 Continue bupropion ER 100 mg qd, Buspar 5 mg TID, clonidine 0.1 m BID, and trazodone 100 mg qhs,lexapr o 10 mg daily and hydroxyzin e 10 mg qdMonitor mood.Psych consult prn. Restless l egs syndrome 13731712 G25.81 Continue requip 0.25 mg qhs.Monito r sxs. Mixed urin laura incontinence 550968995 N39.46 Continue estring 2 mg q 3 monthsMoni tor urinary function.F /U with uro prn. Acute urin laura tract infection 371139803 N39.0 completed abxencoura ged to have increased water consumptio n to flush out toxins Hypokalemia 56679891 E87 .6 subtle at 3.1will replete with kcl 20 meq times 2 daysmonito r for associated sx (weakness, cramping, twitching) patient to notify nursing staff with sx [id number] [facility] [address] [address] 05/09/2024 11:39:53 05/10/2024 13:50:01 Pain of shoulder region 71666935 M25.519 see HPInon traumatic right shoulder painGive now dose for tramadol 50 mg then tramadol 50 mg Q6 prnschedul e tylenol 1 g TIDxray 3 viewscan apply ice for pain or heat for comfort [id number] [facility] [address] [address] 05/19/2024 09:40:12 05/23/2024 12:46:45 Pain of shoulder region 95209916 M25.519 non traumatic right shoulder pain-xray negative for any acute findings.c ontinue tramadol 50 mg Q6 prnschedul e tylenol 1 g TID [id number] [facility] [address] [address] 06/16/2024 08:41:53 06/22/2024 12:46:48 Diplopia 78677936 H53.2 intermitte nt12/4 opthamolog y exam showed esophoria at distance , divergence insufficie ncy can be neurologic al neurology consult recommende d, otherwise follow up in 1 year. Impaired cognition 72801 6002 R41.89 Continue supportive care, expect decline.HC P invokedcon tinue to monitor mood and behaviors with recent med changes Essential hypertension 96122045 I10 Continue bisoprolol 2.5 mg qd, lasix 20 mg qd, losartan 25 mg qd. amlodipine 5 mg qd and clonidine 0.1 mg BID.Monito r BP and labs. Congestive heart failure 92778490 I50.22 euvolemic. she has been stableCont inue [...] bleeding risk. Chronic ob structive pulmonary disease 20655170 J43.8 Continue Advair 100/25 mcg BID and albuterol MDI 2 puffs q 4 hrs prn.Monito r resp. status. Osteoporosis 77336176 M8 1.0 Continue cholecalci ferol 2000 IU qd, calcium 500 mg BID, and risedronat e 35 mg weeklyMoni tor as outpt. Gastroesop hageal reflux disease without esophagitis 493261614 K21.9 tolerating a regular diet, no reported GI upsetpanto prazole discontinu ed due to QTc Hyperlipidemia 19477290 E78.49 Continue atorvastat in 40 mg qd.Monitor labs as outpt. Mixed anxi ety and depressive disorder 313251408 F41.8 nursing reports daily anxiety, currently on [...] of hydroxyzin e Restless l egs syndrome 26008276 G25.81 Continue requip 0.25 mg qhs.Monito r sxs. Mixed urin laura incontinence 478781116 N39.46 Continue estring 2 mg q 3 monthsMoni tor urinary function.F /U with uro prn. [id number] [facility] [address] [place] [address] 06/20/2024 10:53:20 06/21/2024 14:19:17 Diplopia 29920878 H53.2 intermitte nt12/4 opthamolog y exam showed esophoria at distance , divergence insufficie ncy can be neurologic al neurology consult recommende d, otherwise follow up in 1 year.she will discuss with family Mixed anxi ety and depressive disorder 768245175 F41.8 nursing reports daily anxiety, currently on [...] and bleeding risk. Prolonged QT interval 11 7438452 I45.81 HX afib.QTc 467GDR - amiodarone and protonix decreased, hydroxyzin e stoppedden ies any associated sx/ no dizziness, palpitatio n etc.repeat ekg in 1 week [id number] [facility] [address] [place] [address] [place] [address] 07/01/2024 08:22:16 07/04/2024 15:48:50 Respiratory tract congestion and cough 785216389 R05.9 non productive chest xray complete:T he lung johansen are clear without mass, infiltrate , congestion , or effusion. SARS-CoV-2 568026847 U07 .1 07/01 positive teststart Molnupirav ir 800 mg BID for 5 dayscontin ue supportive therapy with oxygen prnisolati on precaution [id number] [facility] [address] [place] [address] [place] [address] 07/04/2024 09:57:50 07/05/2024 09:55:44 Respiratory tract congestion and cough 803343663 R05.9 no cough appreciate d on exam SARS-CoV-2 260834682 U07 .1 07/01 positive testcopnti gregoria Dela Cruzupirav ir 800 mg BID for 5 dayscontin ue supportive therapy with oxygen prnisolati on precaution [id number] [facility] [address] [facility] [place] [address] 10/09/2024 10:55:30 10/13/2024 16:07:53 Mixed anxiety and depressive disorder 420759661 F41.8 stablecont inue escitalopr am, BusPIRone and trazodone Impaired cognition 80605 6002 R41.89 Continue supportive care, expect decline.HC P invokedcon tinue to monitor mood and behaviors with recent med changes Essential hypertension 78662640 I10 stableCont inue bisoprolol 2.5 mg qd, lasix 20 mg qd, losartan 25 mg qd. amlodipine 5 mg qd and clonidine 0.1 mg BID.Monito r BP and labs. Congestive heart failure 91052310 I50.22 euvolemic. stableCont inue bisoprolol 2.5 mg qd, lasix 20 mg qd and losartan 25 mg qd.Monitor resp. status, fluid status, wts and labs. Atrial fibrillation 4943 6004 I48.0 stablerate controlled cont amiodarone to 100 mg qdContinue eliquis 5 mg BID for AC.Monitor HR and bleeding risk. Chronic ob structive pulmonary disease 53094471 J43.8 stableCont inue Advair 100/25 mcg BID and albuterol MDI 2 puffs q 4 hrs prn.Monito r resp. status. Gastroesop hageal reflux disease without esophagitis 599162971 K21.9 stabletole rating a regular diet, no reported GI upsetpanto prazole discontinu ed due to QTc Hyperlipidemia 69198753 E78.49 Continue atorvastat in 40 mg qd.Monitor labs as outpt. [id number] Abhi Erickson MD [facility] [address] [place] [address] [place] [address] 10/12/2024 11:19:17 10/14/2024 08:28:33 Impaired cognition 006128976 R41.89 baseline impaired cognitionH CP invokedmon itor for behaviorsp sych eval prn Pruritic rash 64392597 L 28.2 eschar x 2 present left wristdoes not appear infectedsu rrounding pruritisat arax 25 mg q 8 prnmonitor for effect [id number] MD MARCIO Ayers [address] [place] [address] [place] [address] 10/24/2024 12:55:25 10/26/2024 11:39:25 Thrombocytosis 7058860 D75.839 D75.838 54671 acute thrombocyt osisrepeat stat cbc to recheck plt levelif remains elevated will starthydre a 1000 mg qd and request heme consult Leukocytosis 724846001 D 72.829 see above Impaired cognition 90219 6002 R41.89 baseline impaired cognitionH CP invokedcoo rdinate with HCP as needed for further workup [id number] DARVIN MARIE CNP [address] [place] [address] 10/26/2024 12:10:11 11/01/2024 08:15:11 Thrombocytosis 3854757 D75.839 D75.838 35579 acute thrombocyt osisimprov ing with hydrea 1000 mg daily.repe at stat cbc to recheck plt level next week.if remains elevated will startconti nue hydrea 1000 mg dialy and will request heme consult Leukocytosis 859136487 D 72.829 improving. see above Impaired cognition 24699 6002 R41.89 baseline impaired cognitionH CP invokedcoo rdinate with HCP as needed for further workup [id number] DARVIN MARIE CNP [address] [place] [address] 11/16/2024 10:25:17 11/18/2024 12:49:51 Thrombocytosis 7545044 D75.839 D75.838 67445 acute thrombocyt osisimprov ing with hydrea 1000 mg daily.Plt 300 on 11/14/24.elida l d/c hydrean 1000 mg and monitor CBC on Thursday, .R equest heme consult Leukocytosis 845767340 D 72.829 improving. see above Impaired cognition 35347 6002 R41.89 baseline impaired cognitionH CP invokedcoo rdinate with HCP as needed for further workup Mixed anxi ety and depressive disorder 819785055 F41.8 stablecont inue current psychotrop ic medication Essential hypertension 38926077 I10 stableCont inue bisoprolol 2.5 mg qd, lasix 20 mg qd, losartan 25 mg qd. amlodipine 5 mg qd and clonidine 0.1 mg BID.Monito r BP and labs. Congestive heart failure 25302143 I50.22 euvolemic. stableCont inue bisoprolol 2.5 mg qd, lasix 20 mg qd and losartan 25 mg qd.Monitor resp. status, fluid status, wts and labs. Atrial fibrillation 4943 6004 I48.0 stablerate controlled cont amiodarone to 100 mg qdContinue eliquis 5 mg BID for AC.Monitor HR and bleeding risk. Chronic ob structive pulmonary disease 53742758 J43.8 stableCont inue Advair 100/25 mcg BID and albuterol MDI 2 puffs q 4 hrs prn.Monito r resp. status. Gastroesop hageal reflux disease without esophagitis 993840611 K21.9 stabletole rating a regular diet, no reported GI upsetpanto prazole discontinu ed due to QTc Hyperlipidemia 16347842 E78.49 Continue atorvastat in 40 mg qd.Monitor labs as outpt. [id number] [facility] [address] [place] [address] 01/18/2025 05:50:29 01/20/2025 13:05:29 Mixed anxiety and depressive disorder 909915318 F41.8 stablecont inue escitalopr am, BusPIRone and trazodone Impaired cognition 83756 6002 R41.89 Continue supportive care, expect decline.HC P invokedcon tinue to monitor mood and behaviors with recent med changes Essential hypertension 42833211 I10 stableCont inue bisoprolol 2.5 mg qd, lasix 20 mg qd, losartan 25 mg qd. amlodipine 5 mg qd and clonidine 0.1 mg BID.Monito r BP and labs. Congestive heart failure 93298454 I50.22 euvolemic. stableCont inue bisoprolol 2.5 mg qd, lasix 20 mg qd and losartan 25 mg qd.Monitor resp. status, fluid status, wts and labs. Atrial fibrillation 4943 6004 I48.0 stablerate controlled cont amiodarone to 100 mg qdContinue eliquis 5 mg BID for AC.Monitor HR and bleeding risk. Chronic ob structive pulmonary disease 21391101 J43.8 stableCont inue Advair 100/25 mcg BID and albuterol MDI 2 puffs q 4 hrs prn.Monito r resp. status. Gastroesop hageal reflux disease without esophagitis 341132232 K21.9 stabletole rating a regular diet, no reported GI upsetpanto prazole discontinu ed due to QTc Hyperlipidemia 95354676 E78.49 Continue atorvastat in 40 mg qd.Monitor labs as outpt. Health Concerns Section Related Observation LastModified by Organization Detai ls LastModified Time None Recorded Concern Status LastModified by Organization Details LastModified Time None Recorded Advance Directives Directive Y: Payers Insurance Date Sequence Insurance Name Policy Number Policy Burdick Covered Member ID Burdick Member ID Guarantor Name 01/18/2025 2 () Hillary Naila [id number] Hillary Taos 01/18/2025 1 MEDIC[place]: [employer] Hillary Pena Taos [id number] Hillary Taos 10/17/2023 2 UNSPECIFIED REMIT PAYOR Hillary Yoo Notes Date Note Type Note Provider Name and Address Organization Details Recorded Time 10/12/2024 text/html Patient is a 74 yo female resident asked to al for MD visit with pruritis left hand. Patient with dementia at baseline, brother in room helps with hx. Patient sitting in wheelchair in NAD. Abhi Erickson MD [address] [place] [address], [address], [place], [address], [facility] 10/12/2024 11:58:18 10/24/2024 text/html Patient is a 74 yo female resident seen for acute rounding. CBC was ordered showing significant elevated of erg=4012 and mild elevation of WBC. Patient with baseline dementia lying in bed in NAD Abhi Erickson MD [address] [facility], [address], [place], [address], [facility] [employer] [facility] 10/24/2024 13:06:12 10/26/2024 text/html Patient is a 74 yo female resident seen for acute rounding. CBC was ordered showing significant elevated of lbm=5111 and mild elevation of WBC on 10/24. Pt started hydrea 1000 mg daily. Repeat lab result reviewed today. Patient with baseline dementia lying in bed in NAD DARVIN MARIE CNP [address] [facility], [address], [place], [address], [facility] [employer] [facility] 10/26/2024 12:27:33 11/16/2024 text/html Patient is a 74 yo female LTC resident seen for annual exam.She has been here after multiple falls and a resulting large right thigh hematoma, needing I&D and drains. Also was COVID+ and had a sub-acute left femur fx. She completed rehab and remained too weak to be able to return to [facility] and so is now LTC. Pt had labs, vsm=2322 and mild elevation of WBC on 10/24. [...] with baseline dementia lying in bed in [facility] DARVIN MARIE CNP [address], [address], [place], [address], [facility] [employer] [facility] 11/16/2024 11:44:39 01/18/2025 text/html ROS as noted in the HPI Hillary is a 74 yr old LTC resident seen for routine rounding. She has been at her baseline in [facility]. no changes in appetite or elimination, there are no acute nursing concerns. REGI COLÓN [address], [address], [place], [address], [facility] [employer] [facility] 01/19/2025 18:55:56 OBGyn Episode No OBEpisode recorded.
--- OUTSIDE RECORDS SUMMARY | 2025-06-29 06:30 | XMS_ITS | Data Portability ---
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 She is not a great historian. She gives me a med list with only a few medicines however she has pill packs from [place] that are totally different medicines that her [...] James agree and recc emeregent eval at [facility] PE - no s/s [...] Was able to discuss w/ PCP from [place] Dr Andino office who was only able to give me limited information and confirm she has seen cardiology in the past. Dr Mcarthur in [place] is medical malpractice paralegal, I did have their number but I [...] [facility] w/ very thorough reasons for escalation adn I was thanked for this level of detail. I did pass along pt PCP names and specialist [facility]. Pt is on agreement and verbalizes understanding [...] diogr am No observ ation record ed. [email or web address] Not Available 10:31:15 Result Notes None recorded. Procedures Surgical History Date Name Laterality Status Provider Name and Address Organization Details Recorded Time Medication Review completed SAMSON Hadley [address], [place], [address], [place] [facility] 05/27/2022 10:20:35 ECG Interpretation - completed SAMSON Hadley [address], [place], [address], [place] [facility] 05/27/2022 10:23:27 Cataract Surgery completed SAMSON Avila [address], [place], [address], [place] [facility] 05/27/2022 09:22:29 bypass of stomach completed SAMSON Landers [address], [place], [address], [place] [facility] 05/27/2022 09:22:41 Imaging [...] Former Smoker SAMSON Hadley [address], [place], [address], [place] [facility] 05/27/2022 09:22:59 When Did [...] ICD10 Code Diagnosis IMO Codes Diagnosis Note [id number] SAMSON Eli [facility] [address] [place] [address] 05/27/2022 08:28:33 05/28/2022 15:07:31 Tachycardia 5894168 R00.0 Community acquired pneumonia 459256495 J18.9 Irregular heart beat 361 378716 R00.8 Health Concerns Section Related Observation LastModified by Organization Detai ls LastModified Time None Recorded Concern Status LastModified by Organization Details LastModified Time None Recorded Advance Directives Directive None Recorded Payers Insurance Date Sequence Insurance Name Policy Number Policy Burdick Covered Member ID Burdick Member ID Guarantor Name 05/27/2022 1 *SELF PAY* Hillary Pender [id number] Hillary Naila 06/02/2022 1 [place]ICARE [place] [employer] Hillary Pena Pender [id number] Hillary Pender 06/02/2022 2 () Hillary Pender [id number] Hillary Pender Notes Date Note Type Note Provider Name [...] note she recently moved up here from [place] to move into an [facility]. She is not a great historian. She gives me a med list with only a few medicines however she has pill packs from [place] that are totally different medicines that her [...] sxs today. SAMSON Hadley [address], [place], [address], [place] [facility] 05/27/2022 10:31:24 OBGyn Episode No OBEpisode recorded.
--- OUTSIDE RECORDS SUMMARY | 2025-06-29 06:30 | XMS_ITS | Clinical Summary ---
Author Organization [facility] Address 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
[2025-06-29 06:31] LABS: MANUAL DIFF FLAG NO
[2025-06-29 07:34] LABS: Anion Gap 13 (12-20); Blood Urea Nitrogen 18 mg/dL (9-16); Calcium 8.5 mg/dL (8.4-10.2); Carbon Dioxide 22 mmol/L (22-29); Chloride 109 mmol/L (96-108); Estimated Glomerular Filt Rate > 60; Potassium 4.2 mmol/L (3.3-5.1); Sodium 140 mmol/L (135-145)
[2025-06-29 07:50] LABS: Hematocrit 39.3 % (37.0-47.0); Hemoglobin 12.0 g/dl (12.0-16.0); Imm Gran Abs Auto 0.04 X10*3/uL (0.00-0.03); Imm Gran Pct Auto 0.6 % (0.0-0.4); Lymphocytes Absolute Auto 1.7 X10*3/uL (1.2-4.9); Mean Corpuscular HGB Conc 30.5 g/dl (31.0-35.0); Mean Corpuscular Hemoglobin 25.9 pg (27.0-33.0); Mean Corpuscular Volume 84.9 fL (80.0-98.0); NRBC Abs Auto 0.000 X10*3/uL (0.0-0.012); NRBC Pct Auto 0.0 /100WBC (0.0-0.2); Platelet Count 720 X10*3/uL (160-400); Red Blood Count 4.63 X10*6/uL (4.20-5.50); White Blood Count 7.1 X10*3/uL (4.8-10.8)
== END 2025-06-29 06:28 | disposition home or self-care (01) ==
LOC: HO.MMNH3L 06:27
PROVIDERS: Visit Provider Physician Assistant Medical
DX: J44.9 Chronic obstructive pulmonary disease, unspecified (principal); I50.9 Heart failure, unspecified; I48.91 Unspecified atrial fibrillation
CPT/HCPCS: 36415; 80048; 85025

== ENCOUNTER 2025-07-11 15:50 | Outpatient (REF) | payer MEDICARE, MEDICAID, SELFPAY ==
--- OUTSIDE RECORDS SUMMARY | 2025-07-11 18:57 | XMS_ITS | Data Portability ---
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 She is not a great historian. She gives me a med list with only a few medicines however she has pill packs from [place] that are totally different medicines that her [...] James agree and recc emeregent eval at [facility] PE - no s/s DVT< no hemoptysis, [...] Was able to discuss w/ PCP from [place] Dr Andino office who was only able to give me limited information and confirm she has seen cardiology in the past. 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 w/ very thorough reasons for escalation adn I was thanked for this level of detail. I did pass along pt PCP names and specialist names I had from [place]. Pt is on agreement and verbalizes understanding [...] diogr am No observ ation record ed. [email or web address] Not Available 10:31:15 Result Notes None recorded. Procedures Surgical History Date Name Laterality Status Provider Name and Address Organization Details Recorded Time Medication Review completed SAMSON Hadley [address], [place], [address], [place] [facility] 05/27/2022 10:20:35 ECG Interpretation - completed SAMSON Hadley [address], [place], [address], [place] [facility] 05/27/2022 10:23:27 Cataract Surgery completed SAMSON Avila [address], [place], [address], [place] [facility] 05/27/2022 09:22:29 bypass of stomach completed SAMSON Landers [address], [place], [address], [place] [facility] 05/27/2022 09:22:41 Imaging [...] Former Smoker SAMSON Hadley [address], [place], [address], [place] [facility] 05/27/2022 09:22:59 When Did [...] N Cancer N Dementia N Stroke N Hypothyroidism N Depression N COPD N Asthma N High Cholesterol N Rheumatoid Arthritis N Pulmonary Embolism N Hypertension Y A-fib N Osteoporosis N Kidney Disease N Gynecological HistoryNo gynecological history recorded. Obstetrics History GPAL:G 0 P 0 0 0 0 Past Encounters Encounter ID Performer Location Encounter Start Date Encounter Closed Date Diagnosis/Indication Diagnosis SNOMED-CT Code Diagnosis ICD10 Code Diagnosis IMO Codes Diagnosis Note [id number] SAMSON Eli [facility] [address] [place] [address] 05/27/2022 08:28:33 05/28/2022 15:07:31 Tachycardia 8863808 R00.0 Community acquired pneumonia 201771626 J18.9 Irregular heart beat 361 335199 R00.8 Health Concerns Section Related Observation LastModified by Organization Detai ls LastModified Time None Recorded Concern Status LastModified by Organization Details LastModified Time None Recorded Advance Directives Directive None Recorded Payers Insurance Date Sequence Insurance Name Policy Number Policy Burdick Covered Member ID Burdick Member ID Guarantor Name 05/27/2022 1 *SELF PAY* Hillary Jim [place]ogg [id number] Hillary Naila 06/02/2022 1 MEDICARE [place]: [employer] Hillary Pena Jim [place]ogg [id number] Hillary Jim Hogg 06/02/2022 2 () Hillary Jim Hogg [id number] Hillary Jim Hogg Notes Date Note Type Note Provider Name [...] note she recently moved up here from [place] to move into an [facility]. She is not a great historian. She gives me a med list with only a few medicines however she has pill packs from [place] that are totally different medicines that her [...] sxs today. SAMSON Hadley [address], [place], [address], [place] [facility] 05/27/2022 10:31:24 OBGyn Episode No OBEpisode recorded.
--- OUTSIDE RECORDS SUMMARY | 2025-07-11 18:57 | XMS_ITS | Data Portability ---
Author Organization [facility], Main Office Address [address] [facility] [place] [address] Care Team Providers Care Manager Heart Failure Name Role Phone MARCIO DONG 3RD FLOOR OTHER Assessment Encounter Date Assessment Date Assessment LastModified by Organization Details LastModified Time 10/26/2024 10/26/202410/24 wbc=12.2 hb=13.3 qef=7282 bun=11 cre=0.69 10/26 wbc 9, hgb 12.1, Plt 1017 Not available 10/26/2024 12:27:13 11/16/2024 11/16/202410/24 wbc=12.2 hb=13.3 nhs=1539 bun=11 cre=0.69 10/26 wbc 9, hgb 12.1, [...] Address Organization Details Recorded Time Recurrent falls 088014631 Active 2022 JUAN MANUEL MORALES NP [address] , [address], [place], [address], [facility] [employer] 11:13:43 Osteoarthr itis 071718544 Active 2022 JUAN MANUEL MORALES NP [address], [address], [place], [address], [facility] 11:13:48 Chronic obstructiv e pulmonary disease 11304616 Active 2022 JUAN MANUEL MORALES NP [address], [address], [place], [address], [facility] 11:13:52 Gastroesop hageal reflux disease without esophagiti s 537256363 Active 2022 JUAN MANUEL MORALES NP [address], [address], [place], [address], [facility] 11:13:58 Congestive heart failure 06334916 Active 2022 JUAN MANUEL MORALES NP [address], [address], [place], [address], [facility] 11:14:03 Atrial fibrillati on 65488636 Active 2022 JUAN MANUEL MORALES NP [address], [address], [place], [address], [facility] 11:14:08 Hematoma of right thigh 532706768848 22765 Active 2022 JUAN MANUEL MORALES NP [address], [address], [place], [address], [facility] 11:14:21 Essential hypertensi on 60825621 Active 2022 JUAN MANUEL MORALES NP [address], [address], [place], [address], [facility] 11:40:46 Hyperlipid emia 34164957 Active 2022 JUAN MANUEL MORALES NP [address], [address], [place], [address], [facility] 11:41:07 Mixed anxiety and depressive disorder 404581863 Active 2022 JUAN MANUEL MORALES NP [address], [address], [place], [address], [place] [facility] 11:41:48 Impaired cognition 710581926 Active 2022 Sandra Morrison MD [address], [address], [place], [address], [facility] 01:04:56 Overactive urinary bladder 263058709 Active 2022 Sandra Morrison MD [address], [address], [place], [address], [facility] 01:13:05 Dry eyes 501069630 Active 2022 Sandra Morrison MD [address], [address], [place], [address], [facility] 01:14:09 Hematoma 313695706 Active 2022 left buttock JUAN MANUEL MORALES, TONY [address], [address], [place], [address], [facility] 13:03:34 Leukocytos is 371034969 Active 2023 JUAN MANUEL MORALES NP [address], [address], [place], [address], [facility] 12:21:55 Restless legs syndrome 94204214 Active 2023 Sandra Morrison MD [address], [place], [address], [facility] 18:41:39 Mixed urinary incontinen ce 653511929 Active 2023 Sandra Morrison MD [address], [place], [address], [facility] 18:42:46 Bacterial conjunctiv itis 283250459 Active 2023 REGI COLÓN [address], [address], [place], [address], [facility] 17:01:03 Thrombocyt osis 1407297 Active 2024 Abhi Erickson MD [address], [address], [place], [address], [facility] 13:01:15 Notes:Some problems listed i n Document: #[id number] could not be added to this patient's [...] 167.64 cm 140/80 mm[Hg] Abhi Erickson MD [address] [place] [address], [place], [address], [facility] 10/24/2024 12:57:01 Date Recorded Body height Provider Name an d Address Organization Details Last Updated DateTime 01/18/2025 167.64 cm REGI COLÓN [address] [place] [address], [place], [address], [facility] 01/19/2025 18:53:56 Social History Question Answer Notes LastModified by Organizat ion Details LastModified Time Tobacco Smoking Status Former Smoker JUAN MANUEL MORALES NP [address] [place] [address], [place], [address], [facility] 08/08/2022 11:11:20 Do You Have An Advance Directive? Yes Information not available 08/11/2022 What Is Your Code Status? Full Code Information not available 08/11/2022 Where Do You Live? [facility], Previously Lived Alone, No Stairs Information not available 05/15/2023 Legal Guardian? 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 Yes Information not available 08/12/2022 What Was [...] PF 05/22/2022 completed Maryam hernandez [place] - [facility] 07/30/2023 12:41:28 Past Encounters Encounter ID Performer Location Encounter Start Date Encounter Closed Date Diagnosis/Indication Diagnosis SNOMED-CT Code Diagnosis ICD10 Code Diagnosis IMO Codes Diagnosis Note [id number] TONY ALMARAZ [address] [facility] [place] [address] 08/08/2022 09:43:58 08/12/2022 10:33:59 Recurrent falls 769795307 R29.6 PT OT eval and treatfall precaution sfrequent safety checks Hematoma o f right thigh 5256748073 2176283 S70.11XA change dressing per ordersmoni tor for increased swellingav oid further falls Atrial fibrillation 4943 6004 I48.91 amiodarone 200 mg dailyeiliq uis 5 mg bidbisopro lol 2.5 mg daily Chronic ob structive pulmonary disease 73837692 J44.9 albuterol inhaler q4hr prnadvair 100/25 daily Congestive heart failure 82342005 I50.9 lasix 20 mg dailylosar miller 25 mg daily Osteoarthritis 403983815 M19.90 cholecalci ferol 2000 dailyrisen dronate 35 weekly Gastroesop hageal reflux disease without esophagitis 590725041 K21.9 CaCarb 500 bidprotoni x 40 mg daily Essential hypertension 07265756 I10 amlodipine 5 mg dailycloni dine 0.1 mg q12 hr Hyperlipidemia 65913797 E78.5 atorvastat in 40 mg daily Mixed anxi ety and depressive disorder 635659254 F41.8 bupropion er 150 mg dailytrazo done 100 mg hs JUAN MANUEL MORALES NP [facility] [address] [place] [address] 08/11/2022 14:11:22 08/13/2022 13:57:19 Hematoma of right thigh 5047786459 8576083 S70.11XA change dressing per ordersmoni tor for increased swellingav oid further falls Congestive heart failure 69969606 I50.9 lasix 20 mg dailylosar miller 25 mg daily [id number] MD MARCIO Ramirez [address] [place] [address] 08/12/2022 17:25:40 08/18/2022 16:13:47 Hematoma of right thigh 7718696742 8260181 S70.11XD With minimal drainage from drains.Lik bruon will get removed at appt tomorrow.M onitor thigh for healing.Mo nitor CBC. Congestive heart failure 44070665 I50.22 Appears euvolemic. Continue bisoprolol 2.5 mg qd, lasix 20 mg qd and losartan 25 mg qd.Monitor resp. status, fluid status, wts and labs. Recurrent falls 96986906 2 R29.6 Very deconditio demetrius.Needs PT/OT for strengthen ing, balance, gait training, safety and function.C ontinue fall precaution s.Monitor for safety. Atrial fibrillation 4943 6004 I48.0 Rate in good control on meds as above and amiodarone 200 mg qd.Continu e eliquis 5 mg BID for AC.Monitor HR and bleeding risk. Chronic ob structive pulmonary disease 16195451 J43.8 At baseline.C ontinue Advair 100/25 mcg BID and albuterol MDI 2 puffs q 4 hrs prn.Monito r resp. status. Gastroesop hageal reflux disease without esophagitis 134692749 K21.9 No current sxs.Contin ue pantoprazo le 40 mg qd.Monitor sxs. Essential hypertension 47013871 I10 Systolic has been high periodical ly, likely due to pain.No change in meds for now.Contin ue meds as above and amlodipine 5 mg qd and clonidine 0.1 mg BID.Monito r BP and labs. Hyperlipidemia 35817769 E78.49 Continue atorvastat in 40 mg qd.Monitor labs as outpt. Mixed anxi ety and depressive disorder 260378527 F41.8 Mood ok tonight.Co ntinue bupropion ER 150 mg qd and trazodone 100 mg qhsMonitor mood.Psych consult prn. Osteoporosis 26903216 M8 1.0 Continue cholecalci ferol 2000 IU qd, calcium 500 mg BID, and risedronat e 35 mg weeklyMoni tor as outpt. [id number] TONY ALMARAZ [address] [place] [address] 08/14/2022 11:52:29 08/18/2022 16:23:58 Chronic obstructive pulmonary disease 31034014 J44.9 albuterol inhaler q4hr prnadvair 100/25 daily Congestive heart failure 96652456 I50.9 lasix 20 mg dailylosar miller 25 mg daily [id number] JUAN MANUEL MORALES NP [address] [address] 08/20/2022 13:24:34 08/22/2022 13:09:35 Chronic obstructive pulmonary disease 24283161 J43.8 albuterol inhaler q4hr prnadvair 100/25 daily Mixed anxi ety and depressive disorder 198833188 F41.8 bupropion er 150 mg dailytrazo done 100 mg hsmonitor and chart any changes in mood or behaviorsp sych prn [id number] JUAN MANUEL MORALES [facility] [address] [place] [address] 08/27/2022 10:50:59 09/02/2022 10:27:22 Hematoma of right thigh 9092171425 8202762 S70.11XD change dressing per ordersmoni tor for increased swellingav oid further fallsWBAT Chronic ob structive pulmonary disease 52790359 J43.8 albuterol inhaler q4hr prnadvair 100/25 daily Recurrent falls 35610932 2 R29.6 PT OT eval and treatfall precaution sfrequent safety checks [id number] JUAN MANUEL TONY MORALES [facility] [address] [place] [address] 09/03/2022 10:52:54 09/05/2022 13:45:58 Chronic obstructive pulmonary disease 33252777 J43.8 albuterol inhaler q4hr prnadvair 100/25 daily Recurrent falls 19727690 2 R29.6 PT OT eval and treatfall precaution sfrequent safety checks [id number] JUAN MANUEL TONY MORALES [address] [address] 09/05/2022 10:51:26 09/09/2022 07:59:39 Recurrent falls 799311542 R29.6 PT OT eval and treatfall precaution sfrequent safety checks Hematoma o f right thigh 9087051444 4032681 S70.11XA [facility] for increased swellingav oid further falls Atrial fibrillation 4943 6004 I48.91 amiodarone 200 mg dailyeiliq uis 5 mg bidbisopro lol 2.5 mg daily Chronic ob structive pulmonary disease 24886355 J44.9 albuterol inhaler q4hr prnadvair 100/25 daily Congestive heart failure 66870803 I50.9 lasix 20 mg dailylosar miller 25 mg daily Osteoarthritis 773633538 M19.90 cholecalci ferol 2000 dailyrisen dronate 35 weekly Gastroesop hageal reflux disease without esophagitis 761037917 K21.9 CaCarb 500 bidprotoni x 40 mg daily Essential hypertension 29460712 I10 amlodipine 5 mg dailycloni dine 0.1 mg q12 hr Hyperlipidemia 13054331 E78.5 atorvastat in 40 mg daily Mixed anxi ety and depressive disorder 937827079 F41.8 bupropion er 150 mg dailytrazo done 100 mg hs [id number] Sandra Morrison MD [facility] [address] [place] [address] 10/07/2022 18:29:02 10/10/2022 15:21:01 Abrasion and/or friction burn of back without infection 87156139 S30.810A With open abrasion.W ill use local care and protection with dressings and monitor sxs. Fall W18.39XA Pt. reminded to call for help when she wants to get up.Continu es to need PT/OT for strengthen ing, balance, gait training, safety and function.C ontinue fall precaution s.Monitor for safety. Essential hypertension 90891780 I10 Systolic was very high this AM, not rechecked since fall. Overall good recently.C ontinue bisoprolol 2.5 mg qd, lasix 20 mg qd, losartan 25 mg qd. amlodipine 5 mg qd and clonidine 0.1 mg BID.Monito r BP and labs. [id number] Sandra Morrison MD [address] [place] [address] 10/09/2022 13:55:48 10/14/2022 11:00:12 Abrasion and/or friction burn of back without infection 64533234 S30.810A Abrasion healing.Co ntinue local care and protection with dressings and monitor sxs. fall W18.39XA Fall 2 days ago.Contin ues to need PT/OT for strengthen ing, balance, gait training, safety and function.C ontinue fall precaution s.Monitor for safety. Essential hypertension 39789793 I10 Continues with intermitte nt elevated SBP, [...] and labs. Hematoma o f right thigh 0039856143 8258137 S70.11XD Healed.CBC stable. Congestive heart failure 74136400 I50.22 Continues to be euvolemic. Continue bisoprolol 2.5 mg qd, lasix 20 mg qd and losartan 25 mg qd.Monitor resp. status, fluid status, wts and labs. Atrial fibrillation 4943 6004 I48.0 Rate remains in good control on meds as above and amiodarone 200 mg qd.Continu e eliquis 5 mg BID for AC.Monitor HR and bleeding risk. Chronic ob structive pulmonary disease 06152603 J43.8 Continues at baseline.C ontinue Advair 100/25 mcg BID and albuterol MDI 2 puffs q 4 hrs prn.Monito r resp. status. Osteoporosis 97357950 M8 1.0 Continue cholecalci ferol 2000 IU qd, calcium 500 mg BID, and risedronat e 35 mg weeklyMoni tor as outpt. Gastroesop hageal reflux disease without esophagitis 333514924 K21.9 No current sxs.Contin ue pantoprazo le 40 mg qd.Monitor sxs. Hyperlipidemia 16968200 E78.49 Continue atorvastat in 40 mg qd.Monitor labs as outpt. Mixed anxi ety and depressive disorder 947115484 F41.8 Mood ok tonight.Co ntinue bupropion ER 150 mg qd, Buspar 5 mg qd, and trazodone 100 mg qhsMonitor mood.Psych consult prn. Impaired cognition 23196 6002 R41.89 Oriented today, but with frequent episodes of confusion. Continue supportive care, expect decline.HC P invokedMon itor mood and behaviors. Psych consult prn. Overactive urinary bladder 270850720 N32.81 Per pt. has been on Gemtesa in the past, would like to restart.Ge mtesa 75 mg qd.Monitor urinary function. Restless l egs syndrome 24598074 G25.81 With increased sxs of RLS.Will start requip 0.25 mg qhs.Monito r sxs. Dry eyes 669763179 H04.1 23 Will start natural tears q 2 hrs prn, may leave at bedside.Mo nitor sxs. [id number] TONY ALMARAZ [address] [place] [address] 10/13/2022 12:47:26 10/15/2022 12:27:09 Hematoma 286193021 M79.81 sent to ED for further eval as it is expanding [id number] TONY ALMARAZ [address] [place] [address] 10/17/2022 10:23:03 10/22/2022 16:06:33 Hematoma 278260937 M79.81 oxycodone 2.5 mg q6hr prn for 5 daysmonito r for healibng Recurrent falls 69792738 2 R29.6 PT OT eval and treatfall precaution sfrequent safety checks Hematoma o f right thigh 7125761936 1237718 S70.11XA resolvedav oid further falls Atrial fibrillation 4943 6004 I48.91 amiodarone 200 mg dailyeiliq uis 5 mg bidbisopro lol 2.5 mg daily Chronic ob structive pulmonary disease 12364022 J44.9 albuterol inhaler q4hr prnadvair 100/25 daily Congestive heart failure 00824939 I50.9 lasix 20 mg dailylosar miller 25 mg daily Osteoarthritis 420572022 M19.90 cholecalci ferol 2000 dailyrisen dronate 35 weekly Gastroesop hageal reflux disease without esophagitis 912095434 K21.9 CaCarb 500 bidprotoni x 40 mg daily Essential hypertension 22897033 I10 amlodipine 5 mg dailycloni dine 0.1 mg q12 hr Hyperlipidemia 76659794 E78.5 atorvastat in 40 mg daily Mixed anxi ety and depressive disorder 329171539 F41.8 bupropion er 150 mg dailybuspa r 5 mg dailytrazo done 100 mg hs Overactive urinary bladder 448116045 N32.81 Gemtesa 75 mg qd.Monitor urinary function. [id number] JUAN MANUEL MORALES NP [address] [address] 10/20/2022 12:38:53 10/22/2022 16:25:33 Hematoma 482473944 M79.81 oxycodone 2.5 mg q6hr prn for 5 daysmonito r for healing Recurrent falls 85897836 2 R29.6 PT OT eval and treatfall precaution sfrequent safety checks [id number] JUAN MANUEL MORALES NP [address] [address] 10/24/2022 10:45:27 10/28/2022 12:44:55 Hematoma 044114769 M79.81 oxycodone 2.5 mg q6hr prn for 5 daysmonito r for healing Impaired cognition 11911 6002 R41.89 Oriented intermitte ntly, but with frequent episodes of confusion. Continue supportive care, expect decline.HC P invokedMon itor mood and behaviors. Psych consult prn. [id number] JUAN MANUEL MORALES NP MARCIO DONG [address] [place] [address] [place] [address] 10/29/2022 13:57:22 10/31/2022 15:54:37 Hematoma 835632430 M79.81 monitor for healing Recurrent falls 50070639 2 R29.6 PT OT eval and treatfall precaution sfrequent safety checks Hematoma o f right thigh 4597532260 5955351 S70.11XA resolvedav oid further falls Atrial fibrillation 4943 6004 I48.91 amiodarone 200 mg dailyeiliq uis 5 mg bidbisopro lol 2.5 mg daily Chronic ob structive pulmonary disease 03739393 J44.9 albuterol inhaler q4hr prnadvair 100/25 daily Congestive heart failure 55915555 I50.9 lasix 20 mg dailylosar miller 25 mg daily Osteoarthritis 632225190 M19.90 cholecalci ferol 2000 dailyrisen dronate 35 weekly Gastroesop hageal reflux disease without esophagitis 969331191 K21.9 CaCarb 500 bidprotoni x 40 mg daily Essential hypertension 42566584 I10 amlodipine 5 mg dailycloni dine 0.1 mg q12 hr Hyperlipidemia 90025690 E78.5 atorvastat in 40 mg daily Mixed anxi ety and depressive disorder 748454342 F41.8 bupropion er 150 mg dailybuspa r 5 mg dailytrazo done 100 mg hs Overactive urinary bladder 835732454 N32.81 Gemtesa 75 mg qd.Monitor urinary function. [id number] MD MARCIO Cline [facility] [address] [place] [address] [place] [address] 01/28/2023 07:59:08 01/30/2023 15:30:48 Impaired cognition 161388024 R41.89 will monitor and support as neededI did not feel that I could invoke patient's HCP proxy today as she was quite appropriat e in her answers to my questions with even some insight. Chronic ob structive pulmonary disease 84174348 J41.0 Advair 250-50: one puff [id number] rol HFA: 2 puffs q4h prnwill monitor Atrial fibrillation 4943 6004 I48.0 apixaban 5 mg bidbisopro lol 2.5 mg dailyamiod arone 200 mg dailywill monitor Essential hypertension 39070961 I10 bisoprolol 2.5 mg dailyamlod ipine 5 mg dailyfuros emide 20 mg dailylosar miller 25 mg dailycloni dine 0.1 mg [id number] monitor Mixed anxi ety and depressive disorder 121218166 F41.8 buspirone 5 mg tidtrazodo ne 100 mg at hsbupropri on 100 mg dailyescit alopram 10 mg dailyhydro xyzine 10 mg q8h prn anxietywil l monitor Overactive urinary bladder 584779671 N32.81 vibegron 75 mg dailywill monitor Restless l egs syndrome 13624421 G25.81 ropinirole 0.25 mg dailywill monitor Gastroesop hageal reflux disease without esophagitis 247559874 K21.9 pantoprazo le 40 mg dailywill monitor Primary osteoporosis 276 256221 M81.0 risendrona te 25 mg weeklywill monitor Chronic sy stolic heart failure 101493721 I50.22 losartan 25 mg dailyfuros emide 20 mg dailybisop rolol 2.5 mg dailywill monitor [id number] TONY ALMARAZ [address] [address] 03/20/2023 16:32:09 03/27/2023 09:38:51 Overactive urinary bladder 788234443 N32.81 urology consult prnMonitor urinary function. Impaired cognition 70783 6002 R41.89 will monitor and support as needed Chronic ob structive pulmonary disease 99497945 J41.0 Advair 250-50: one puff [id number] rol HFA: 2 puffs q4h prnwill monitor Atrial fibrillation 4943 6004 I48.0 apixaban 5 mg bidbisopro lol 2.5 mg dailyamiod arone 200 mg dailywill monitor Essential hypertension 09097366 I10 bisoprolol 2.5 mg dailyamlod ipine 5 mg dailyfuros emide 20 mg dailylosar miller 25 mg dailycloni dine 0.1 mg [id number] monitor Mixed anxi ety and depressive disorder 767055676 F41.8 buspirone 5 mg tidtrazodo ne 100 mg at hsbupropri on 100 mg dailyescit alopram 10 mg dailyhydro xyzine 10 mg q8h prn anxietywil l monitor Restless l egs syndrome 67519211 G25.81 ropinirole 0.25 mg dailywill monitor Gastroesop hageal reflux disease without esophagitis 604387976 K21.9 pantoprazo le 40 mg dailywill monitor Primary osteoporosis 276 695675 M81.0 risendrona te 25 mg weeklywill monitor Chronic sy stolic heart failure 889445358 I50.22 losartan 25 mg dailyfuros emide 20 mg dailybisop rolol 2.5 mg dailywill monitor Recurrent falls 17067574 2 R29.6 PT OT eval and treatfall precaution sfrequent safety checks [id number] Sandra Morrison MD [address] [place] [address] 05/15/2023 17:56:32 05/19/2023 11:07:46 Fall 3401569 R29.6 Hx of fallsConti nue fall precaution s.Monitor for safety. Essential hypertension 66998477 I10 Good control.Co ntinue bisoprolol 2.5 mg qd, lasix 20 mg qd, losartan 25 mg qd. amlodipine 5 mg qd and clonidine 0.1 mg BID.Monito r BP and labs. Hematoma o f right thigh 3575248406 4254822 S70.11XD Healed.CBC stable. Impaired cognition 01980 6002 R41.89 Mild confusion today, but fairly oriented.C ontinue supportive care, expect decline.HC P invokedMon itor mood and behaviors. Psych consult prn. Congestive heart failure 75373602 I50.22 Continues to be euvolemic. Continue bisoprolol 2.5 mg qd, lasix 20 mg qd and losartan 25 mg qd.Monitor resp. status, fluid status, wts and labs. Atrial fibrillation 4943 6004 I48.0 Rate remains in good control on meds as above and amiodarone 200 mg qd.Continu e eliquis 5 mg BID for AC.Monitor HR and bleeding risk. Chronic ob structive pulmonary disease 51408183 J43.8 Continues at baseline.C ontinue Advair 100/25 mcg BID and albuterol MDI 2 puffs q 4 hrs prn.Monito r resp. status. Osteoporosis 01213738 M8 1.0 Continue cholecalci ferol 2000 IU qd, calcium 500 mg BID, and risedronat e 35 mg weeklyMoni tor as outpt. Gastroesop hageal reflux disease without esophagitis 222828441 K21.9 No current sxs.Contin ue pantoprazo le 40 mg qd.Monitor sxs. Hyperlipidemia 54657090 E78.49 Continue atorvastat in 40 mg qd.Monitor labs as outpt. Mixed anxi ety and depressive disorder 724265598 F41.8 Mood ok tonight.Co ntinue bupropion ER 100 mg qd, Buspar 5 mg TID, clonidine 0.1 m BID, and trazodone 100 mg qhsMonitor mood.Psych consult prn. Restless l egs syndrome 30129491 G25.81 Continue requip 0.25 mg qhs.Monito r sxs. Mixed urin laura incontinence 127632888 N39.46 Continue estring 2 mg q 3 months and estrace cream 2 gms 3x/wkMonit or urinary function.F /U with uro prn. Visual hallucinations 64 488403 R44.1 Psych consult for visual and auditory hallucinat ions.[place] to pt. [id number] TONY ALMARAZ [address] [place] [address] [place] [address] 07/10/2023 12:52:00 07/21/2023 11:22:40 Overactive urinary bladder 823235228 N32.81 urology consult prnMonitor urinary function.d -mannose 500 mg daily uti preventati ve Impaired cognition 75049 6002 R41.89 will monitor and support as needed Chronic ob structive pulmonary disease 35287532 J41.0 Advair 250-50: one puff [id number] rol HFA: 2 puffs q4h prnwill monitor Atrial fibrillation 4943 6004 I48.0 apixaban 5 mg bidbisopro lol 2.5 mg dailyamiod arone 200 mg dailywill monitor Essential hypertension 84606101 I10 bisoprolol 2.5 mg dailyamlod ipine 5 mg dailyfuros emide 20 mg dailylosar miller 25 mg dailycloni dine 0.1 mg a05anxxi monitor Mixed anxi ety and depressive disorder 552388069 F41.8 buspirone 5 mg tidtrazodo ne 100 mg at hsbupropri on 100 mg dailyescit alopram 10 mg dailyhydro xyzine 10 mg q8h prn anxietywil l monitor Restless l egs syndrome 61402920 G25.81 ropinirole 0.25 mg dailywill monitor Gastroesop hageal reflux disease without esophagitis 825792264 K21.9 pantoprazo le 40 mg dailywill monitor Primary osteoporosis 276 077218 M81.0 risendrona te 25 mg weeklywill monitor Chronic sy stolic heart failure 121496524 I50.22 losartan 25 mg dailyfuros emide 20 mg dailybisop rolol 2.5 mg dailywill monitor Recurrent falls 97080051 2 R29.6 PT OT eval and treatfall precaution sfrequent safety checks [id number] JUAN MANUEL MORALES NP [address] [address] 07/15/2023 12:09:17 07/21/2023 14:31:17 Leukocytosis 882586717 D72.829 UA C/Scxr [id number] Martina Vidalburn Hazel [address] [address] 08/28/2023 10:48:09 10/26/2023 15:56:34 Atrial fibrillation 08579825 I48.0 chronic, stable. RCcontinue eliquiscon tinue norvasccon tinue amiodarone monitor HR Chronic ob structive pulmonary disease 78651585 J41.0 chronic stablecont inue inhalersmo nitor for changes in respirator y status Congestive heart failure 48013132 I50.22 chronic, stablecont inue lasix 20mg dailymonit or BMP Essential hypertension 09307262 I10 chronic stablecont inue norvasc and losartanal so on lasix Hyperlipidemia 52054927 E78.49 continue atorvastat inmonitor lipids annually [id number] Jenni Kwong MD [address] [place] [address] 09/09/2023 08:10:55 09/15/2023 10:16:26 Impaired cognition 894214454 R41.89 will monitor and support as needed Mixed anxi ety and depressive disorder 519596973 F41.8 buspirone 5 mg tidtrazodo ne 100 mg at hsbupropri on 100 mg dailyescit alopram 10 mg dailyhydro xyzine 10 mg q8h prn anxietywil l monitor Atrial fibrillation 4943 6004 I48.0 apixaban 5 mg bidbisopro lol 2.5 mg dailyamiod arone 200 mg dailywill monitor Essential hypertension 17620062 I10 bisoprolol 2.5 mg dailyamlod ipine 5 mg dailyfuros emide 20 mg dailylosar miller 25 mg dailycloni dine 0.1 mg [id number] monitor Hyperlipidemia 78027213 E78.49 atorvastat in 40 mg dailywill monitor Chronic ob structive pulmonary disease 84967892 J41.0 Advair 250-50: one puff [id number] rol HFA: 2 puffs q4h prnwill monitor Gastroesop hageal reflux disease without esophagitis 589549949 K21.9 pantoprazo le 40 mg dailywill monitor Restless l egs syndrome 20715026 G25.81 ropinirole 0.25 mg dailywill monitor Cobalamin deficiency 190 797789 E53.8 B12 500 mcg dailywill monitor [id number] [facility] [address] [place] [address] 09/21/2023 11:12:35 09/23/2023 09:57:55 Acute dermatitis 52375568 L30.9 left upper facial near left eye [...] provide new make up brushes Impaired cognition 29839 6002 R41.89 will monitor and support as needed [id number] [facility] MARCIO DONG [address] [place] [address] [place] [address] 09/22/2023 15:18:31 09/24/2023 12:07:21 Impaired cognition 589921163 R41.89 will monitor and support as needed Pain of le ft knee region 0360477842 66038 M25.562 see hpiwill scheduled 975 mg tylenol TIDxray left knee 2 viewsconsi christiano PT/OT eval if imaging is negative for fx. [id number] [facility] [address] [place] [address] [place] [address] 10/13/2023 18:47:09 10/15/2023 17:16:34 Cough 57104496 R05.9 10/11: started mucinex 600 mg q [...] dayincreas e oral hydrationm onitor resp status [id number] [facility] [address] [place] [address] [place] [address] 10/29/2023 11:14:47 11/03/2023 12:16:03 Impaired cognition 966326155 R41.89 Continue supportive care, expect decline.HC P invokedMon itor mood and behaviors. Psych consult prn. Essential hypertension 84350460 I10 BP has been controlled with current medicatios .Continue bisoprolol 2.5 mg qd, lasix 20 mg qd, losartan 25 mg qd. amlodipine 5 mg qd and clonidine 0.1 mg BID.Monito r BP and labs. Congestive heart failure 81080222 I50.22 euvolemic. Continue bisoprolol 2.5 mg qd, lasix 20 mg qd and losartan 25 mg qd.Monitor resp. status, fluid status, wts and labs. Atrial fibrillation 4943 6004 I48.0 HR controlled continue amiodarone 200 mg qd.Continu e eliquis 5 mg BID for AC.Monitor HR and bleeding risk. Chronic ob structive pulmonary disease 44514419 J43.8 Continues at baseline.C ontinue Advair 100/25 mcg BID and albuterol MDI 2 puffs q 4 hrs prn.Monito r resp. status. Osteoporosis 02345711 M8 1.0 Continue cholecalci ferol 2000 IU qd, calcium 500 mg BID, and risedronat e 35 mg weeklyMoni tor as outpt. Gastroesop hageal reflux disease without esophagitis 628068164 K21.9 No current sxs.Contin ue pantoprazo le 40 mg qd.Monitor sxs. Hyperlipidemia 47883880 E78.49 Continue atorvastat in 40 mg qd.Monitor labs as outpt. Mixed anxi ety and depressive disorder 072429222 F41.8 Continue bupropion ER 100 mg qd, Buspar 5 mg TID, clonidine 0.1 m BID, and trazodone 100 mg qhs,lexapr o 10 mg daily and hydroxyzin e 10 mg qdMonitor mood.Psych consult prn. Restless l egs syndrome 78254382 G25.81 Continue requip 0.25 mg qhs.Monito r sxs. Mixed urin laura incontinence 409686713 N39.46 Continue estring 2 mg q 3 monthsMoni tor urinary function.F /U with uro prn. Tear of skin 450284495 T 14.8XXA LLE flap tear, approximat edcontinue to monitor healing. [id number] [facility] [address] [place] [address] 11/10/2023 12:24:35 11/23/2023 12:50:14 Pain of shoulder region 23809910 M25.519 right shoulder pain+ discomfort with abduction, suspect OAnursing to give now dose tylenol and continue prnPT/OT eval and treatwill monitor. [id number] [facility] [address] [place] [address] 11/25/2023 11:56:55 11/27/2023 12:02:47 Candidiasis of vagina 86150903 B37.31 vaginal redness appears yeastPatie nt has no discomfort start diflucan 150 mg Q72 for 3 dosesPt is incontinen t, nursing encourage to check for incontinen t episode and change Q2.keep skin clean and drymonitor for resolution [id number] MD MARCIO Ramirez IKER [address] [place] [address] rd [place] [address] 01/15/2024 21:46:22 02/02/2024 07:55:44 Impaired cognition 771010128 R41.89 Continues at baseline.C ontinue escitalopr am 10 mg qd, bupropion ER 100 mg qd, Buspar 5 mg TID, clonidine 0.1 m BID, trazodone 100 mg qhs, and hydroxyzin e 10 mg qd.Continu e supportive care, expect decline.HC P invokedMon itor mood and behaviors. Psych follows. Visual hallucinations 64 786012 R44.1 Psych follows, no mention of this in recent notes.Aida tor Essential hypertension 46719540 I10 Continues in good control.Co ntinue bisoprolol 2.5 mg qd, lasix 20 mg qd, losartan 25 mg qd. amlodipine 5 mg qd and clonidine 0.1 mg BID.Monito r BP and labs. Congestive heart failure 76202842 I50.22 Continues to be euvolemic. Continue bisoprolol 2.5 mg qd, lasix 20 mg qd and losartan 25 mg qd.Monitor resp. status, fluid status, wts and labs. Atrial fibrillation 4943 6004 I48.0 Rate in good control on meds as above and amiodarone 200 mg qd.Continu e eliquis 5 mg BID for AC.Monitor HR and bleeding risk. Chronic ob structive pulmonary disease 18636162 J43.8 Continues at baseline.C ontinue Advair 100/25 mcg BID and albuterol MDI 2 puffs q 4 hrs prn.Mucine x 600 mg BID added for cough in 10/2023.Mon itor resp. status. Osteoporosis 17695162 M8 1.0 Continue cholecalci ferol 2000 IU qd, calcium 500 mg BID, and risedronat e 35 mg weeklyMoni tor as outpt. Gastroesop hageal reflux disease without esophagitis 206702722 K21.9 No current sxs.Contin ue pantoprazo le 40 mg qd.Monitor sxs. Hyperlipidemia 40876793 E78.49 Continue atorvastat in 40 mg qd.Monitor labs as outpt. Mixed anxi ety and depressive disorder 931670810 F41.8 As above. Restless l egs syndrome 36106568 G25.81 She mentions this tonight.Co ntinue requip 0.25 mg qhs.Consid er increase to 0.5 mg qhs.Monito r sxs. Mixed urin laura incontinence 121736439 N39.46 Continue estring 2 mg q 3 months.Mon itor urinary function.F /U with uro prn. Cough 32393648 R05.9 Back to baseline.M onitor [id number] [facility] [address] [address] 02/24/2024 09:53:07 02/25/2024 10:07:37 Bacterial conjunctivitis 974540619 H10.9 see hpibilater al erythema, dry yellowish discharge noted on lashes and corners or eyesstart ofloxacin 0.3 % 2 gtts QID for 5 daysmonito r for resolution patient encouraged to avoid rubbing eyes, apply cool compress for comfort. [id number] [facility] [address] [address] 03/02/2024 10:16:42 03/04/2024 10:24:18 Bacterial conjunctivitis 480725713 H10.9 ofloxacin eye gtts completeds clera white, no drainage or discharge, denies didcomfort .bilateral erythema, dry yellowish discharge noted on lashes and corners or eyespatien t encouraged to avoid rubbing eyes, apply cool compress for comfort. Mixed anxi ety and depressive disorder 591634266 F41.8 followed by [facility] seen on 02/28 with recommenda tion for GDR she is currently on 4 psychotrop ic medication 03/02: decrease bupropion ER 100 mg qd to 75 mgcheck EKG for QTcContinu e , Buspar 5 mg TID, clonidine 0.1 m BID, and trazodone 100 mg qhs,lexapr o 10 mg daily and hydroxyzin e 10 mg qdMonitor mood.Psych prn [id number] [facility] [address] [address] 03/07/2024 15:12:42 03/09/2024 09:31:11 Recurrent falls 535240781 R29.6 see hpino acute injuries or reports of discomfort .nursing to continue post fall protocol. [id number] [facility] [address] [facility] [place] [address] 03/09/2024 10:14:06 03/15/2024 13:07:32 Impaired cognition 752483512 R41.89 Continue supportive care, expect decline.HC P invokedMon itor mood and behaviors. Psych consult prn. Essential hypertension 70671124 I10 Continue bisoprolol 2.5 mg qd, lasix 20 mg qd, losartan 25 mg qd. amlodipine 5 mg qd and clonidine 0.1 mg BID.Monito r BP and labs. Congestive heart failure 87801246 I50.22 euvolemic. she has been stableCont inue bisoprolol 2.5 mg qd, lasix 20 mg qd and losartan 25 mg qd.Monitor resp. status, fluid status, wts and labs. Atrial fibrillation 4943 6004 I48.0 denies any chest pain or other associated sx,continu e amiodarone 200 mg qd.Continu e eliquis 5 mg BID for AC.Monitor HR and bleeding risk. Chronic ob structive pulmonary disease 11037425 J43.8 Continues at baseline.C ontinue Advair 100/25 mcg BID and albuterol MDI 2 puffs q 4 hrs prn.Monito r resp. status. Osteoporosis 60959720 M8 1.0 Continue cholecalci ferol 2000 IU qd, calcium 500 mg BID, and risedronat e 35 mg weeklyMoni tor as outpt. Gastroesop hageal reflux disease without esophagitis 807002400 K21.9 tolerating a regular diet, no reported GI upsetConti nue pantoprazo le 40 mg qd.Monitor sxs. Hyperlipidemia 63237271 E78.49 Continue atorvastat in 40 mg qd.Monitor labs as outpt. Mixed anxi ety and depressive disorder 808228317 F41.8 Continue bupropion ER 100 mg qd, Buspar 5 mg TID, clonidine 0.1 m BID, and trazodone 100 mg qhs,lexapr o 10 mg daily and hydroxyzin e 10 mg qdMonitor mood.Psych consult prn. Restless l egs syndrome 99005693 G25.81 Continue requip 0.25 mg qhs.Monito r sxs. Mixed urin laura incontinence 995880960 N39.46 Continue estring 2 mg q 3 monthsMoni tor urinary function.F /U with uro prn. Bacterial conjunctivitis 150147982 H10.9 resolvedof loxacin eye gtts completeds stacy villalobos, no drainage or discharge, denies discomfort . Recurrent falls 66800732 2 R29.6 s/p fall 03/05no acute injuries or reports of discomfort .nursing to continue post fall protocol. [id number] [facility] [address] [address] 04/04/2024 13:13:21 04/05/2024 13:32:19 Viral conjunctivitis 21021122 B30.9 left eyeleft sclera erythema, lower lid swelling( aggravated by rubbing) with clear drainage.n o itchiness or discomfort start azelastine gtt BID for 14 day.monito r for resolution patient encouraged to avoid rubbing eyes, apply cool compress for comfort. [id number] [facility] [address] [place] [address] 04/07/2024 11:04:20 04/08/2024 12:46:40 Viral conjunctivitis 00347690 B30.9 left eye /stablelef t sclera erythema, lower lid swelling( aggravated by rubbing) with clear drainage.n o itchiness or discomfort start azelastine gtt BID for 14 day.- have not received med from pharmacy-m onitor for resolution patient encouraged to avoid rubbing eyes, apply cool compress for comfort. Acute urin laura tract infection 617270059 N39.0 see hpiwill start bactrim 400mg Q12 for 7 dayadd probiotic BIDencoura ged to have increased water consumptio n to flush out toxins Hypokalemia 22308427 E87 .6 subtle at 3.1will replete with kcl 20 meq times 2 daysmonito r for associated sx (weakness, cramping, twitching) patient to notify nursing staff with sx [id number] [facility] e [address] [facility] [place] [address] 04/28/2024 11:26:55 04/29/2024 11:42:54 Impaired cognition 467217618 R41.89 stableCont inue supportive care, expect decline.HC P invokedMon itor mood and behaviors. Psych consult prn. Essential hypertension 59997200 I10 Continue bisoprolol 2.5 mg qd, lasix 20 mg qd, losartan 25 mg qd. amlodipine 5 mg qd and clonidine 0.1 mg BID.Monito r BP and labs. Congestive heart failure 69587266 I50.22 euvolemic. she has been stableCont inue bisoprolol 2.5 mg qd, lasix 20 mg qd and losartan 25 mg qd.Monitor resp. status, fluid status, wts and labs. Atrial fibrillation 4943 6004 I48.0 denies any chest pain or other associated sx,continu e amiodarone 200 mg qd.Continu e eliquis 5 mg BID for AC.Monitor HR and bleeding risk. Chronic ob structive pulmonary disease 15083432 J43.8 Continues at baseline.C ontinue Advair 100/25 mcg BID and albuterol MDI 2 puffs q 4 hrs prn.Monito r resp. status. Osteoporosis 70684961 M8 1.0 Continue cholecalci ferol 2000 IU qd, calcium 500 mg BID, and risedronat e 35 mg weeklyMoni tor as outpt. Gastroesop hageal reflux disease without esophagitis 673510690 K21.9 tolerating a regular diet, no reported GI upsetConti nue pantoprazo le 40 mg qd.Monitor sxs. Hyperlipidemia 20552551 E78.49 Continue atorvastat in 40 mg qd.Monitor labs as outpt. Mixed anxi ety and depressive disorder 165679395 F41.8 Continue bupropion ER 100 mg qd, Buspar 5 mg TID, clonidine 0.1 m BID, and trazodone 100 mg qhs,lexapr o 10 mg daily and hydroxyzin e 10 mg qdMonitor mood.Psych consult prn. Restless l egs syndrome 45890503 G25.81 Continue requip 0.25 mg qhs.Monito r sxs. Mixed urin laura incontinence 552281606 N39.46 Continue estring 2 mg q 3 monthsMoni tor urinary function.F /U with uro prn. Acute urin laura tract infection 906456745 N39.0 completed abxencoura ged to have increased water consumptio n to flush out toxins Hypokalemia 65947652 E87 .6 subtle at 3.1will replete with kcl 20 meq times 2 daysmonito r for associated sx (weakness, cramping, twitching) patient to notify nursing staff with sx [id number] [facility] [address] [address] 05/09/2024 11:39:53 05/10/2024 13:50:01 Pain of shoulder region 23570833 M25.519 see HPInon traumatic right shoulder painGive now dose for tramadol 50 mg then tramadol 50 mg Q6 prnschedul e tylenol 1 g TIDxray 3 viewscan apply ice for pain or heat for comfort [id number] [facility] [address] [address] 05/19/2024 09:40:12 05/23/2024 12:46:45 Pain of shoulder region 51503419 M25.519 non traumatic right shoulder pain-xray negative for any acute findings.c ontinue tramadol 50 mg Q6 prnschedul e tylenol 1 g TID [id number] [facility] [address] [address] 06/16/2024 08:41:53 06/22/2024 12:46:48 Diplopia 52604835 H53.2 intermitte nt12/4 opthamolog y exam showed esophoria at distance , divergence insufficie ncy can be neurologic al neurology consult recommende d, otherwise follow up in 1 year. Impaired cognition 87826 6002 R41.89 Continue supportive care, expect decline.HC P invokedcon tinue to monitor mood and behaviors with recent med changes Essential hypertension 93481888 I10 Continue bisoprolol 2.5 mg qd, lasix 20 mg qd, losartan 25 mg qd. amlodipine 5 mg qd and clonidine 0.1 mg BID.Monito r BP and labs. Congestive heart failure 31884135 I50.22 euvolemic. she has been stableCont inue [...] bleeding risk. Chronic ob structive pulmonary disease 56628614 J43.8 Continue Advair 100/25 mcg BID and albuterol MDI 2 puffs q 4 hrs prn.Monito r resp. status. Osteoporosis 03220241 M8 1.0 Continue cholecalci ferol 2000 IU qd, calcium 500 mg BID, and risedronat e 35 mg weeklyMoni tor as outpt. Gastroesop hageal reflux disease without esophagitis 520658289 K21.9 tolerating a regular diet, no reported GI upsetpanto prazole discontinu ed due to QTc Hyperlipidemia 03021935 E78.49 Continue atorvastat in 40 mg qd.Monitor labs as outpt. Mixed anxi ety and depressive disorder 557795823 F41.8 nursing reports daily anxiety, currently on [...] of hydroxyzin e Restless l egs syndrome 42138849 G25.81 Continue requip 0.25 mg qhs.Monito r sxs. Mixed urin laura incontinence 555379643 N39.46 Continue estring 2 mg q 3 monthsMoni tor urinary function.F /U with uro prn. [id number] [facility] [address] [place] [address] 06/20/2024 10:53:20 06/21/2024 14:19:17 Diplopia 50913966 H53.2 intermitte nt12/4 opthamolog y exam showed esophoria at distance , divergence insufficie ncy can be neurologic al neurology consult recommende d, otherwise follow up in 1 year.she will discuss with family Mixed anxi ety and depressive disorder 733924372 F41.8 nursing reports daily anxiety, currently on [...] and bleeding risk. Prolonged QT interval 11 7150151 I45.81 HX afib.QTc 467GDR - amiodarone and protonix decreased, hydroxyzin e stoppedden ies any associated sx/ no dizziness, palpitatio n etc.repeat ekg in 1 week [id number] [facility] [address] [place] [address] [place] [address] 07/01/2024 08:22:16 07/04/2024 15:48:50 Respiratory tract congestion and cough 122663395 R05.9 non productive chest xray complete:T he lung johansen are clear without mass, infiltrate , congestion , or effusion. SARS-CoV-2 279236093 U07 .1 07/01 positive teststart Molnupirav ir 800 mg BID for 5 dayscontin ue supportive therapy with oxygen prnisolati on precaution [id number] [facility] [address] [place] [address] [place] [address] 07/04/2024 09:57:50 07/05/2024 09:55:44 Respiratory tract congestion and cough 878406362 R05.9 no cough appreciate d on exam SARS-CoV-2 937187722 U07 .1 07/01 positive testcopnti gregoria Dela Cruzupirav ir 800 mg BID for 5 dayscontin ue supportive therapy with oxygen prnisolati on precaution [id number] [facility] [address] [facility] [place] [place] [address] 10/09/2024 10:55:30 10/13/2024 16:07:53 Mixed anxiety and depressive disorder 075813120 F41.8 stablecont inue escitalopr am, BusPIRone and trazodone Impaired cognition 04698 6002 R41.89 Continue supportive care, expect decline.HC P invokedcon tinue to monitor mood and behaviors with recent med changes Essential hypertension 62421840 I10 stableCont inue bisoprolol 2.5 mg qd, lasix 20 mg qd, losartan 25 mg qd. amlodipine 5 mg qd and clonidine 0.1 mg BID.Monito r BP and labs. Congestive heart failure 73076065 I50.22 euvolemic. stableCont inue bisoprolol 2.5 mg qd, lasix 20 mg qd and losartan 25 mg qd.Monitor resp. status, fluid status, wts and labs. Atrial fibrillation 4943 6004 I48.0 stablerate controlled cont amiodarone to 100 mg qdContinue eliquis 5 mg BID for AC.Monitor HR and bleeding risk. Chronic ob structive pulmonary disease 70509743 J43.8 stableCont inue Advair 100/25 mcg BID and albuterol MDI 2 puffs q 4 hrs prn.Monito r resp. status. Gastroesop hageal reflux disease without esophagitis 297141099 K21.9 stabletole rating a regular diet, no reported GI upsetpanto prazole discontinu ed due to QTc Hyperlipidemia 69533515 E78.49 Continue atorvastat in 40 mg qd.Monitor labs as outpt. [id number] Abhi Erickson MD [facility] [address] [place] [address] [place] [address] 10/12/2024 11:19:17 10/14/2024 08:28:33 Impaired cognition 202810801 R41.89 baseline impaired cognitionH CP invokedmon itor for behaviorsp sych eval prn Pruritic rash 80794646 L 28.2 eschar x 2 present left wristdoes not appear infectedsu rrounding pruritisat arax 25 mg q 8 prnmonitor for effect [id number] MD MARCIO Ayers [address] [place] [address] [place] [address] 10/24/2024 12:55:25 10/26/2024 11:39:25 Thrombocytosis 0329629 D75.839 D75.838 46333 acute thrombocyt osisrepeat stat cbc to recheck plt levelif remains elevated will starthydre a 1000 mg qd and request heme consult Leukocytosis 331077187 D 72.829 see above Impaired cognition 87351 6002 R41.89 baseline impaired cognitionH CP invokedcoo rdinate with HCP as needed for further workup [id number] DARVIN MARIE CNP [address] [place] [address] 10/26/2024 12:10:11 11/01/2024 08:15:11 Thrombocytosis 9503998 D75.839 D75.838 59783 acute thrombocyt osisimprov ing with hydrea 1000 mg daily.repe at stat cbc to recheck plt level next week.if remains elevated will startconti nue hydrea 1000 mg dialy and will request heme consult Leukocytosis 006945039 D 72.829 improving. see above Impaired cognition 26520 6002 R41.89 baseline impaired cognitionH CP invokedcoo rdinate with HCP as needed for further workup [id number] DARVIN MARIE CNP [address] [place] [address] 11/16/2024 10:25:17 11/18/2024 12:49:51 Thrombocytosis 9542286 D75.839 D75.838 74470 acute thrombocyt osisimprov ing with hydrea 1000 mg daily.Plt 300 on 11/14/24.elida l d/c hydrean 1000 mg and monitor CBC on Thursday, .R equest heme consult Leukocytosis 048218085 D 72.829 improving. see above Impaired cognition 21254 6002 R41.89 baseline impaired cognitionH CP invokedcoo rdinate with HCP as needed for further workup Mixed anxi ety and depressive disorder 944662025 F41.8 stablecont inue current psychotrop ic medication Essential hypertension 48239802 I10 stableCont inue bisoprolol 2.5 mg qd, lasix 20 mg qd, losartan 25 mg qd. amlodipine 5 mg qd and clonidine 0.1 mg BID.Monito r BP and labs. Congestive heart failure 49334944 I50.22 euvolemic. stableCont inue bisoprolol 2.5 mg qd, lasix 20 mg qd and losartan 25 mg qd.Monitor resp. status, fluid status, wts and labs. Atrial fibrillation 4943 6004 I48.0 stablerate controlled cont amiodarone to 100 mg qdContinue eliquis 5 mg BID for AC.Monitor HR and bleeding risk. Chronic ob structive pulmonary disease 62756137 J43.8 stableCont inue Advair 100/25 mcg BID and albuterol MDI 2 puffs q 4 hrs prn.Monito r resp. status. Gastroesop hageal reflux disease without esophagitis 213610693 K21.9 stabletole rating a regular diet, no reported GI upsetpanto prazole discontinu ed due to QTc Hyperlipidemia 76977019 E78.49 Continue atorvastat in 40 mg qd.Monitor labs as outpt. [id number] [facility] [address] [place] [address] 01/18/2025 05:50:29 01/20/2025 13:05:29 Mixed anxiety and depressive disorder 704609584 F41.8 stablecont inue escitalopr am, BusPIRone and trazodone Impaired cognition 82498 6002 R41.89 Continue supportive care, expect decline.HC P invokedcon tinue to monitor mood and behaviors with recent med changes Essential hypertension 92812042 I10 stableCont inue bisoprolol 2.5 mg qd, lasix 20 mg qd, losartan 25 mg qd. amlodipine 5 mg qd and clonidine 0.1 mg BID.Monito r BP and labs. Congestive heart failure 59921873 I50.22 euvolemic. stableCont inue bisoprolol 2.5 mg qd, lasix 20 mg qd and losartan 25 mg qd.Monitor resp. status, fluid status, wts and labs. Atrial fibrillation 4943 6004 I48.0 stablerate controlled cont amiodarone to 100 mg qdContinue eliquis 5 mg BID for AC.Monitor HR and bleeding risk. Chronic ob structive pulmonary disease 34117305 J43.8 stableCont inue Advair 100/25 mcg BID and albuterol MDI 2 puffs q 4 hrs prn.Monito r resp. status. Gastroesop hageal reflux disease without esophagitis 543392121 K21.9 stabletole rating a regular diet, no reported GI upsetpanto prazole discontinu ed due to QTc Hyperlipidemia 37116829 E78.49 Continue atorvastat in 40 mg qd.Monitor labs as outpt. Health Concerns Section Related Observation LastModified by Organization Detai ls LastModified Time None Recorded Concern Status LastModified by Organization Details LastModified Time None Recorded Advance Directives Directive Y: Payers Insurance Date Sequence Insurance Name Policy Number Policy Burdick Covered Member ID Burdick Member ID Guarantor Name 01/18/2025 2 () Hillary Naila [id number] Hillary Andrew 01/18/2025 1 [place] [employer] Hillary Pena Andrew [id number] Hillary Andrew 10/17/2023 2 UNSPECIFIED REMIT PAYOR Hillary Yoo Notes Date Note Type Note Provider Name and Address Organization Details Recorded Time 10/12/2024 text/html Patient is a 74 yo female resident asked to al for MD visit with pruritis left hand. Patient with dementia at baseline, brother in room helps with hx. Patient sitting in wheelchair in NAD. Abhi Erickson MD [address] [place] [address], [address], [place], [address], [facility] 10/12/2024 11:58:18 10/24/2024 text/html Patient is a 74 yo female resident seen for acute rounding. CBC was ordered showing significant elevated of pqg=9810 and mild elevation of WBC. Patient with baseline dementia lying in bed in NAD Abhi Erickson MD [address] [facility], [address], [place], [address], [facility] 10/24/2024 13:06:12 10/26/2024 text/html Patient is a 74 yo female resident seen for acute rounding. CBC was ordered showing significant elevated of let=4765 and mild elevation of WBC on 10/24. Pt started hydrea 1000 mg daily. Repeat lab result reviewed today. Patient with baseline dementia lying in bed in NAD DARVIN MARIE CNP [address] [facility], [address], [place], [address], [facility] [facility] 10/26/2024 12:27:33 11/16/2024 text/html Patient is a 74 yo female LTC resident seen for annual exam.She has been here after multiple falls and a resulting large right thigh hematoma, needing I&D and drains. Also was COVID+ and had a sub-acute left femur fx. She completed rehab and remained too weak to be able to return to [facility] and so is now LTC. Pt had labs, [id number] and mild elevation of WBC on 10/24. [...] with baseline dementia lying in bed in [facility] ADRVIN MARIE CNP [address], [address], [place], [id number], [facility] 11/16/2024 11:44:39 01/18/2025 text/html ROS as noted in the HPI Hillary is a 74 yr old LTC resident seen for routine rounding. She has been at her baseline in [facility]. no changes in appetite or elimination, there are no acute nursing concerns. REGI COLÓN [address], [address], [place], [id number], [facility] 01/19/2025 18:55:56 OBGyn Episode No OBEpisode recorded.
--- OUTSIDE RECORDS SUMMARY | 2025-07-11 18:57 | XMS_ITS | Clinical Summary ---
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
[2025-07-12 09:42] LABS: Chlamydia pneumoniae PCR Not Detected (Not Detect.); Coronavirus 229E PCR Not Detected (Not Detect.); Coronavirus HKU1 PCR Not Detected (Not Detect.); Coronavirus NL63 PCR Not Detected (Not Detect.); Coronavirus OC43 PCR Not Detected (Not Detect.); Influenza A H3 PCR Detected (Not Detect.); RSV PCR Not Detected (Not Detect.); Rhino/Enterovirus PCR Not Detected (Not Detect.); SARS-CoV-2 PCR Not Detected (Not Detect.)
[2025-07-12 09:52] LABS: Influenza A H1 PCR Not Detected (Not Detect.); Influenza A H1-2009 PCR Not Detected (Not Detect.)
== END 2025-07-11 15:51 ==
LOC: HO.MMNH3L 15:50
PROVIDERS: Visit Provider Student in an Organized Health Care Education/Training Program
DX: J44.9 Chronic obstructive pulmonary disease, unspecified (principal); I50.20 Unspecified systolic (congestive) heart failure; I48.0 Paroxysmal atrial fibrillation
CPT/HCPCS: 87633